=== PATIENT | male | born 1950 | race Caucasian/White ===

== ENCOUNTER 2020-06-10 06:39 | Outpatient (REF) | payer MEDICARE, SELFPAY ==
[2020-06-10 08:09] LABS: Estimated Average Glucose 154 mg/dL
[2020-06-10 08:16] LABS: Glucose Fasting 111 mg/dL (60-99)
== END 2020-06-10 06:40 | disposition home or self-care (01) ==
LOC: HO.LAB 06:39
PROVIDERS: PCP Internal Medicine; Visit Provider Internal Medicine
DX: E11.9 Type 2 diabetes mellitus without complications (principal)
CPT/HCPCS: 82947; 83036

== ENCOUNTER 2020-08-11 06:09 | Outpatient (REF) | payer MEDICARE, SELFPAY ==
[2020-08-11 07:45] LABS: Estimated Average Glucose 163 mg/dL; Hemoglobin A1c % 7.3 %
[2020-08-11 08:47] LABS: Cholesterol 135 mg/dL; Glucose Fasting 200 mg/dL (60-99); HDL Cholesterol 52 mg/dL; LDL Cholesterol Calculated 67 mg/dl; Triglycerides 80 mg/dL
[2020-08-11 08:49] LABS: Reflex LDLD? No
== END 2020-08-11 06:10 | disposition home or self-care (01) ==
LOC: HO.LAB 06:09
PROVIDERS: Visit Provider Internal Medicine
DX: E78.00 Pure hypercholesterolemia, unspecified (principal); E11.9 Type 2 diabetes mellitus without complications
CPT/HCPCS: 36415; 80061; 82947; 83036

== ENCOUNTER → 2020-08-12 08:07 | Outpatient (BNVA) | payer MEDICARE, SELFPAY | PROVIDERS: PCP Internal Medicine; Referring Provider Internal Medicine; Visit Provider Internal Medicine Endocrinology, Diabetes & Metabolism | DX: Z13.89 Encounter for screening for other disorder (principal) | CPT/HCPCS: Q3014 ==

== ENCOUNTER 2020-08-12 09:45 | Outpatient (REF) | payer MEDICARE, SELFPAY | END 2020-08-12 09:46 | disposition home or self-care (01) | LOC: HO.LAB 09:45 | PROVIDERS: PCP Internal Medicine; Visit Provider Internal Medicine | DX: Z20.822 Contact with and (suspected) exposure to COVID-19 (principal) | CPT/HCPCS: 36415; C9803; U0003 ==

== ENCOUNTER 2020-08-22 08:55 | Outpatient (REF) | payer OTHER, SELFPAY | END 2020-08-22 08:56 | disposition home or self-care (01) | LOC: HO.LAB 08:55 | PROVIDERS: Visit Provider Internal Medicine | DX: Z20.822 Contact with and (suspected) exposure to COVID-19 (principal) | CPT/HCPCS: 36415; C9803; U0003 ==

== ENCOUNTER → 2020-12-17 07:44 | Outpatient (BNVA) | payer OTHER, SELFPAY | PROVIDERS: PCP Internal Medicine; Visit Provider Internal Medicine Endocrinology, Diabetes & Metabolism | DX: E11.65 Type 2 diabetes mellitus with hyperglycemia (principal); E11.42 Type 2 diabetes mellitus with diabetic polyneuropathy; Z79.4 Long term (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; I10 Essential (primary) hypertension; E78.5 Hyperlipidemia, unspecified; E66.9 Obesity, unspecified | CPT/HCPCS: 82947 ==

== ENCOUNTER → 2020-12-29 14:52 | Outpatient (BNVA) | payer OTHER, SELFPAY | PROVIDERS: PCP Internal Medicine; Visit Provider Anesthesiology ==

== ENCOUNTER 2021-01-13 10:42 | Outpatient (REF) | payer OTHER, SELFPAY ==
[2021-01-13 10:49] LABS: MANUAL DIFF FLAG NO
[2021-01-13 11:33] LABS: Estimated Average Glucose 169 mg/dL; Hemoglobin A1c % 7.5 %
[2021-01-13 11:36] LABS: Basophils Percent Auto 0.4 % (0-2); Eosinophils Absolute Auto 0.1 X10*3/uL (0.0-0.4); Eosinophils Percent Auto 1.5 % (0-4); Hematocrit 37.3 % (42-52); Hemoglobin 11.9 g/dl (14.0-18.0); Imm Gran Abs Auto 0.01 X10*3/uL (0.00-0.03); Imm Gran Pct Auto 0.1 % (0.0-0.4); Lymphocytes Absolute Auto 1.6 X10*3/uL (1.2-4.9); Lymphocytes Percent Auto 24.1 % (20-40); Mean Corpuscular HGB Conc 31.9 g/dl (31.0-36.0); Mean Corpuscular Hemoglobin 28.8 pg (27.0-33.0); Mean Corpuscular Volume 90.3 fL (80-98); Mean Platelet Volume 10.8 fL (9.4-12.4); Monocytes Absolute Auto 0.6 X10*3/uL (0.1-1.2); Monocytes Percent Auto 9.6 % (2-11); Neutrophils Absolute Auto 4.3 X10*3/uL (2.0-8.3); Neutrophils Percent Auto 64.3 % (45-73); Platelet Count 271 X10*3/uL (160-400); Red Blood Count 4.13 X10*6/uL (4.60-5.80); Red Cell Distribution Width 14.6 % (11.0-16.0); White Blood Count 6.7 X10*3/uL (4.8-10.8)
[2021-01-13 11:44] LABS: Glucose Urine UA NEG (NEG); Leukocyte Esterase Urine NEG (NEG); Nitrite Urine NEG (NEG); Urine Blood NEG (NEG); Urine Ketones NEG (NEG); Urine Protein 1+ MG/DL (NEG-TRACE)
[2021-01-13 11:53] LABS: Appearance Urine CLEAR; Color Urine YELLOW
[2021-01-13 12:17] LABS: Mucus Urine 2+ /LPF; RBC Urine 0-2 /HPF (0); Sperm Urine NOTED; WBC Urine 0-2 /HPF (0-4)
[2021-01-13 12:35] LABS: PSA,Total (Free>4and<10) 3.02 ng/mL (0.00-4.00)
[2021-01-13 12:54] LABS: Creatinine Urine 186.14 mg/dL; Microalbum/Creatinine Ratio Ur 9.6 ug/mg cr
[2021-01-13 13:04] LABS: Alanine Aminotransferase 14 U/L (0-40); Albumin Level 4.3 g/dL (3.5-5.0); Alkaline Phosphatase 65 U/L (39-117); Anion Gap 13 (12-20); Aspartate Amino Transferase 21 U/L (5-37); Bilirubin Total 0.7 mg/dL (0.0-1.0); Blood Urea Nitrogen 14 mg/dL (9-16); Calcium 9.4 mg/dL (8.4-10.2); Carbon Dioxide 24 mmol/L (22-29); Chloride 107 mmol/L (96-108); Cholesterol 112 mg/dL; Estimated Glomerular Filt Rate > 60; Glucose Fasting 127 mg/dL (60-99); HDL Cholesterol 55 mg/dL; LDL Cholesterol Calculated 46 mg/dl; Potassium 4.1 mmol/L (3.3-5.1); Sodium 140 mmol/L (135-145); Total Protein 7.1 g/dL (6.5-8.0); Triglycerides 56 mg/dL
== END 2021-01-13 10:43 | disposition home or self-care (01) ==
LOC: HO.LNP 10:42
PROVIDERS: Visit Provider Internal Medicine
DX: Z00.00 Encounter for general adult medical examination without abnormal findings (principal); I10 Essential (primary) hypertension; E11.9 Type 2 diabetes mellitus without complications; E78.00 Pure hypercholesterolemia, unspecified; Z12.5 Encounter for screening for malignant neoplasm of prostate
CPT/HCPCS: 80053; 80061; 81001; 81003; 82043; 83036; 84153; 85025

== ENCOUNTER 2021-01-13 10:43 | Outpatient (REF) | payer OTHER, SELFPAY | END 2021-01-13 10:44 | disposition home or self-care (01) | LOC: HO.LNP 10:43 | PROVIDERS: Visit Provider Internal Medicine | DX: Z13.89 Encounter for screening for other disorder (principal) ==

== ENCOUNTER 2021-03-02 06:14 | Outpatient (REF) | payer MEDICARE, SELFPAY ==
[2021-03-02 07:57] LABS: Anion Gap 12 (12-20); Blood Urea Nitrogen 11 mg/dL (9-16); Carbon Dioxide 27 mmol/L (22-29); Chloride 104 mmol/L (96-108); Estimated Glomerular Filt Rate > 60; Phosphorus 2.9 mg/dL (2.7-4.5); Potassium 4.1 mmol/L (3.3-5.1); Sodium 139 mmol/L (135-145)
[2021-03-02 08:06] LABS: Renal w Reflex Lab Use Only Order verified
== END 2021-03-02 06:15 | disposition home or self-care (01) ==
LOC: HO.LAB 06:14
PROVIDERS: PCP Internal Medicine; Visit Provider Internal Medicine Nephrology
DX: N20.0 Calculus of kidney (principal); I10 Essential (primary) hypertension
CPT/HCPCS: 36415; 80051; 82310; 82565; 84100; 84520

== ENCOUNTER → 2021-03-06 14:36 | Outpatient (BNVA) | payer OTHER, SELFPAY | PROVIDERS: PCP Internal Medicine; Visit Provider Urology ==

== ENCOUNTER → 2021-04-22 07:41 | Outpatient (BNVA) | payer OTHER, SELFPAY | PROVIDERS: PCP Internal Medicine; Visit Provider Nurse Practitioner Gerontology | DX: E11.42 Type 2 diabetes mellitus with diabetic polyneuropathy (principal); E11.319 Type 2 diabetes mellitus with unspecified diabetic retinopathy without macular edema; E78.5 Hyperlipidemia, unspecified; B35.9 Dermatophytosis, unspecified; I10 Essential (primary) hypertension; E66.9 Obesity, unspecified; Z79.4 Long term (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 | CPT/HCPCS: 82947; 83036 ==

== ENCOUNTER 2021-04-24 09:03 | Day surgery (SDC) | payer OTHER, SELFPAY ==
--- NOTE | 2021-04-23 14:05 | P.CONAN_ITS ---
Documented by User: Roxana Agosto NP 04/23/21 14:06 HPI - Anesthesia Eval Consult details Narrative: 70yo M for Bilateral L2-L3-L4-DR L5 Diagnostic Medial Branch Blocks PMFSH Active Problems Active Problems: All Active Problems (Updated 04/22/21 @ 08:38 by BULMARO Valentin-C) DM2 (diabetes mellitus, type 2) (Acute) Tinea (Acute) Weak urinary stream (Acute) Nocturia more than twice per night (Acute) BPH w urinary obs/LUTS (Acute) Disc degeneration, lumbar (Acute) Chronic pain syndrome (Acute) Arthropathy of facet joint (Acute) Spondylosis of lumbosacral spine with radiculopathy (Acute) GERD (gastroesophageal reflux disease) (Acute) Obesity (BMI 30-39.9) (Acute) Dyslipidemia (Acute) Hypertension (Acute) 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 associated with type 2 diabetes mellitus (Acute) 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 (Acute) Past Medical History Medical History Arthropathy of facet joint Chronic pain syndrome 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 associated with type 2 diabetes mellitus Disc degeneration, lumbar DM2 (diabetes mellitus, type 2) Dyslipidemia GERD (gastroesophageal reflux disease) 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 Obesity (BMI 30-39.9) Spondylosis of lumbosacral spine with radiculopathy Family History Family History Father Unknown family medical history Mother Unknown family medical history Surgical History Surgical History Hx of colonoscopy Hx of esophagogastroduodenoscopy Hx of right hemicolectomy Social History Social History (Updated 04/22/21 @ 07:55 by JAKI Malin) Alcohol intake: never Patient Tobacco Use Status: Never used Tobacco Use of substances other than those prescribed or required for medical reasons: No Are you DNR?: No Advance Directives: No Advance Directives Information Provided: Yes Meds Allergies Allergy/AdvReac Type Severity Reaction Status Date / Time No Known Allergies Allergy Mild NONE Verified 04/22/21 08:13 Home Medications Medication Instructions Recorded Confirmed Last Taken Type aspirin 81 mg tablet,delayed 81 mg PO DAILY 08/12/20 04/22/21 Unknown History release (Adult Low Dose Aspirin) atorvastatin 40 mg tablet 40 mg PO DAILY 08/12/20 04/22/21 Unknown History hydralazine 100 mg tablet 100 mg PO TID 08/12/20 04/22/21 Unknown History omeprazole 20 mg capsule,delayed 20 mg PO BID 08/12/20 04/22/21 Unknown History release tramadol 50 mg tablet 50 mg PO Q6H PRN 08/12/20 04/22/21 Unknown History bupropion HCl 150 mg 24 hr tablet, 150 mg PO QAM 12/17/20 04/22/21 Unknown History extended release losartan 100 mg tablet 100 mg PO DAILY 12/17/20 04/22/21 Unknown History celecoxib 200 mg capsule 200 mg PO DAILY 04/22/21 04/22/21 Unknown History Exam Exam Date and Time: April 23, 2021 1405 Pertinent Lab Results Pertinent Lab Results: Laboratory Tests 01/13/21 03/02/21 07:10 06:25 WBC 6.7 Hgb 11.9 L Hct 37.3 L Plt Count 271 Sodium 139 Potassium 4.1 Chloride 104 Carbon Dioxide 27 BUN 11 Creatinine 0.92 Assessment and Plan Assessment Anesthesia Assessment: Chart Reviewed Documented by User: Nelly Domínguez MD 04/24/21 13:14 [facility] Past Medical History Medical History Arthropathy of facet joint Chronic pain syndrome 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 associated with type 2 diabetes mellitus Disc degeneration, lumbar DM2 (diabetes mellitus, type 2) Dyslipidemia GERD (gastroesophageal reflux disease) Hypertension 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 Obesity (BMI 30-39.9) Spondylosis of lumbosacral spine with radiculopathy Functional capacity: independent ambulation Family History Family History Father Unknown family medical history Mother Unknown family medical history Family history of problems with anesthesia: No Surgical History Surgical History Hx of colonoscopy Hx of esophagogastroduodenoscopy Hx of right hemicolectomy Social History Social History (Updated 04/22/21 @ 07:55 by JAKI Malin) Alcohol intake: never Patient Tobacco Use Status: Never used Tobacco Use of substances other than those prescribed or required for medical reasons: No Are you DNR?: No Advance Directives: No Advance Directives Information Provided: Yes Meds Allergies Allergy/AdvReac Type Severity Reaction Status Date / Time No Known Allergies Allergy Mild NONE Verified 04/22/21 08:13 Home Medications Medication Instructions Recorded Confirmed Last Taken Type aspirin 81 mg tablet,delayed 81 mg PO DAILY 08/12/20 04/22/21 Unknown History release (Adult Low Dose Aspirin) atorvastatin 40 mg tablet 40 mg PO DAILY 08/12/20 04/22/21 Unknown History hydralazine 100 mg tablet 100 mg PO TID 08/12/20 04/22/21 Unknown History omeprazole 20 mg capsule,delayed 20 mg PO BID 08/12/20 04/22/21 Unknown History release tramadol 50 mg tablet 50 mg PO Q6H PRN 08/12/20 04/22/21 Unknown History bupropion HCl 150 mg 24 hr tablet, 150 mg PO QAM 12/17/20 04/22/21 Unknown History extended release losartan 100 mg tablet 100 mg PO DAILY 12/17/20 04/22/21 Unknown History celecoxib 200 mg capsule 200 mg PO DAILY 04/22/21 04/22/21 Unknown History Exam Airway Mallampati Class: III TM Dist: >3cm Neck ROM: Full Heart: RRR Lungs: CTA Assessment and Plan Final Anesthetic Review Family History of Problems with Anesthesia: No
--- NOTE | ~2021-04-24 | FL_ITS ---
EXAMINATION: XR FLUOROSCOPY WITH IMAGES CLINICAL INFORMATION: Lumbar spine pain management procedure COMPARISON: None. TECHNIQUE: Fluoroscopy performed by Dr. Lalo Cooper. Fluoroscopy time: 1.4 minutes DAP: 15 mGycm2 Images: 8 FINDINGS: Images demonstrate needle placement and contrast injection adjacent to the bilateral lateral L3, L4 and L5 vertebral bodies. FL/FL guidance in OR IMPRESSION: Fluoroscopy guidance for lumbar spine pain management procedure.
[2021-04-24 10:02] VITALS: BP 182/85; PULSE 79; RESP 18; TEMP 36.3; O2SAT 97; BMI 33.0
[2021-04-24 10:04] LABS: Glucose, Whole Blood 152 mg/dL (60-115)
[2021-04-24] MEDS: Lactated Ringers 1,000 ML 100 ML IVCONT (10:13)
--- NOTE | 2021-04-24 10:49 | P.BOP_ITS ---
Brief Operative Note Date of Service: 04/24/21 Pre-op diagnosis: Spondylosis without myelopathy or radiculopathy lumbar spine Procedure: Diagnostic medial branch block L2-L3 L4 does ramus L5 Implants: In a Surgeon: Lalo Cooper MD Anesthesia: MAC Was an Drug Coordinator used for this Procedure?: No Estimated blood loss (mL): 2 Pathology: none sent Condition: stable Disposition: PACU
--- NOTE | 2021-04-24 10:50 | P.HPSUR_ITS ---
Pre-Procedural Eval Section A Date of Service: 04/24/21 Section B Chief Complaint: Spondylosis, Arthropathy of facet joint Details of Present Illness: As above Relevant Family History (Specify if Yes): No Relevant Social History: None Present Medications: see Short Stay Collaborative assessment Medical History: No relevant PMH History of Previous Operations: Relevant previous surgery/procedure and date(s) Allergies: Allergies Allergy/AdvReac Type Severity Reaction Status Date / Time No Known Allergies Allergy Mild NONE Verified 04/22/21 08:13 Review of Systems Sugical H&P ROS: Negative: Constitution, Cardiovascular, Respiratory, N eurological, Psychiatric, Hem-Onc, Allergic/Immunologic, Gastrointestinal, Genitourinary, Musculoskeletal, Integumentary, Endocrine and Eyes/Ears/Nose/Throat Exam Surgical H&P Exam: Normal: HEENT, Normal: Heart, Normal: Lungs, Normal: Extremities, Normal: Abdomen, Normal: Skin and Normal: Neurological Plan Diagnosis/Plan: Unchanged I have reviewed the history and physical and performed a pertinent physical examination on my patient. No changes have occurred unless specified.
--- NOTE | 2021-04-24 10:54 | W.PM.OPN ---
Operative Note Operative Note Date of Service: 04/24/21 Narrative: Informed consent was explained to the patient. All questions were explained and? answered.? The patient was taken inside the operating room where he was positioned prone on the operating table.? Citizen Of [place] Society of Anesthesiology monitors were applied.? Patient was deeply sedated. ? Time-out was performed delineating correct site, side, the nature of the procedure, patient's allergy, preoperative antibiotic if needed.? All operating room staff was participating in OR time-out procedure. ? ? The lower back was prepped with DuraPrep and draped with sterile towels.?C-arm was brought over the operating field and sq picture of L3, L4-and L5 vertebra and S1 AREA were delineated on the screen.? Point of interest were delineated as connection of superior articular process of L3, L4 and L5 vertebra bilaterally with corresponding transverse processes as well as connection of the sacral alae bilaterally with superior articular process of S1.? The projection of the point of interest to the skin were injected with the small amount of local anesthetic lidocaine 2% 1-1.5 cc.? After that 22 gauge 5inch spinal needle was driven sequentially to the points of interest in tunnel vision fashion.The patients' body habitus required longer than usual needle although the patient is not morbidly obese. After needles gently contacted the bone at the point of interests the needle was injected with small amount of the contrast.? The injection of the contrast did not demonstrate any intravascular or intrathecal spread of the contrast.? After that injection of the? bupivacaine 0.5%-1cc was performed at each needle location.? ? Upon completion of the injections? needle was? removed and sterile Band-Aids were applied.? The? patient was awaken and taken outside of the operating room to recovery room where he recovered uneventfully he went home without immediate complications. He was instructed about pain diary.
--- NOTE | 2021-04-24 11:44 | MHC.SHP ---
Pre-Procedural Eval Section A Date of Service: 04/24/21 Section B Chief Complaint: Spondylosis, Arthropathy of facet joint Details of Present Illness: As above Relevant Family History (Specify if Yes): No Relevant Social History: None Present Medications: None Medical History: No relevant PMH History of Previous Operations: No relevant previous surgery Allergies: Allergies Allergy/AdvReac Type Severity Reaction Status Date / Time No Known Allergies Allergy Mild NONE Verified 04/22/21 08:13 Review of Systems Sugical H&P ROS: Negative: Constitution, Cardiovascular, Respiratory, Neurological, Psychiatric, Hem-Onc, Allergic/Immunologic, Gastrointestinal, Genitourinary, Musculoskeletal, Integumentary, Endocrine and Eyes/Ears/Nose/Throat Exam Surgical H&P Exam: Normal: HEENT, Normal: Heart, Normal: Lungs, Normal: Extremities, Normal: Abdomen, Normal: Skin and Normal: Neurological Plan Diagnosis/Plan: Unchanged I have reviewed the history and physical and performed a pertinent physical examination on my patient. No changes have occurred unless specified.
[2021-04-24 12:46] VITALS: BP 163/77; PULSE 67; RESP 16; TEMP 36.2; O2SAT 98
[2021-04-24 13:01] VITALS: BP 156/78; PULSE 69; RESP 20; TEMP 36.4; O2SAT 99
== END 2021-04-24 13:45 | disposition home or self-care (01) ==
PROVIDERS: PCP Internal Medicine; Visit Provider Anesthesiology
PROC: (CPT 64493; principal; 2021-04-24 10:50)
DX: M47.27 Other spondylosis with radiculopathy, lumbosacral region (principal); M51.36 Other intervertebral disc degeneration, lumbar region; G89.4 Chronic pain syndrome; M54.5 Low back pain; E11.9 Type 2 diabetes mellitus without complications; I10 Essential (primary) hypertension; Z79.4 Long term (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
CPT/HCPCS: 64493; 64494; 64495; 82947; J2250; Q9967

== ENCOUNTER → 2021-04-29 16:48 | Outpatient (BNVA) | payer OTHER, SELFPAY | PROVIDERS: PCP Internal Medicine; Visit Provider Anesthesiology ==

== ENCOUNTER 2021-05-27 06:12 | Day surgery (SDC) | payer MEDICARE, SELFPAY ==
--- NOTE | 2021-05-26 12:42 | HO.ANESPROP2 ---
Documented by User: Roxana Agosto NP 05/26/21 12:43 HPI - Anesthesia Eval Consult details Narrative: 70yo M for Colonoscopy s/p MBB with MAC 04/24/21 [facility] Active Problems Active Problems: All Active Problems (Updated 05/21/21 @ 15:52 by Deyanira Silevira, RN) BPH w urinary obs/LUTS (Acute) Nocturia more than twice per night (Acute) Weak urinary stream (Acute) Tinea (Acute) DM2 (diabetes mellitus, type 2) (Acute) Disc degeneration, lumbar (Acute) Chronic pain syndrome (Acute) Arthropathy of facet joint (Acute) Spondylosis of lumbosacral spine with radiculopathy (Acute) GERD (gastroesophageal reflux disease) (Acute) Obesity (BMI 30-39.9) (Acute) Dyslipidemia (Acute) Hypertension (Acute) 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 associated with type 2 diabetes mellitus (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) Past Medical History Medical History (Updated 05/21/21 @ 15:52 by Deyanira Silveira, BEATRIZ) Arthropathy of facet joint Chronic pain syndrome 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 associated with type 2 diabetes mellitus Disc degeneration, lumbar DM2 (diabetes mellitus, type 2) Dyslipidemia GERD (gastroesophageal reflux disease) Hx SBO 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 Obesity (BMI 30-39.9) On beta lala at home Spondylosis of lumbosacral spine with radiculopathy Family History Family History Father Unknown family medical history Mother Unknown family medical history Family history of problems with anesthesia: No Surgical History Surgical History (Updated 05/21/21 @ 15:49 by Deyanira Silveira, BEATRIZ) Hx of colonoscopy Hx of esophagogastroduodenoscopy Hx of right hemicolectomy Social History Social History (Updated 04/22/21 @ 07:55 by JAKI Malin) Alcohol intake: never Patient Tobacco Use Status: Never used Tobacco Use of substances other than those prescribed or required for medical reasons: No Are you DNR?: No Advance Directives: No Advance Directives Information Provided: Yes Meds Allergies Allergy/AdvReac Type Severity Reaction Status Date / Time No Known Allergies Allergy Mild NONE Verified 05/21/21 15:50 Home Medications Medication Instructions Recorded Confirmed Last Taken Type aspirin 81 mg tablet,delayed 81 mg PO DAILY 08/12/20 05/21/21 Unknown History release (Adult Low Dose Aspirin) atorvastatin 40 mg tablet 40 mg PO DAILY 08/12/20 05/21/21 Unknown History hydralazine 100 mg tablet 100 mg PO TID 08/12/20 05/21/21 05/27/21 History omeprazole 20 mg capsule,delayed 20 mg PO BID 08/12/20 05/21/21 Unknown History release tramadol 50 mg tablet 50 mg PO Q6H PRN 08/12/20 05/21/21 05/27/21 History bupropion HCl 150 mg 24 hr tablet, 150 mg PO QAM 12/17/20 05/21/21 Unknown History extended release losartan 100 mg tablet 100 mg PO DAILY 12/17/20 05/21/21 Unknown History celecoxib 200 mg capsule 200 mg PO DAILY 04/22/21 05/21/21 Unknown History Exam Exam Date and Time: May 26, 2021 1242 Pertinent Lab Results Pertinent Lab Results: Laboratory Tests ? 01/13/21 03/02/21 ? 07:10 06:25 WBC ?6.7 ? Hgb ?11.9 L ? Hct ?37.3 L ? Plt Count ?271 ? Sodium ? ?139 Potassium ? ?4.1 Chloride ? ?104 Carbon Dioxide ? ?27 BUN ? ?11 Creatinine ? 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 Obesity (BMI 30-39.9) On beta lala at home Spondylosis of lumbosacral spine with radiculopathy Family History Family History Father Unknown family medical history Mother Unknown family medical history Surgical History Surgical History (Updated 05/21/21 @ 15:49 by Deyanira Silveira RN) Hx of colonoscopy Hx of esophagogastroduodenoscopy Hx of right hemicolectomy History of Problems with Anesthesia: No Social History Social History (Updated 04/22/21 @ 07:55 by JAKI Malin) Alcohol intake: never Patient Tobacco Use Status: Never used Tobacco Use of substances other than those prescribed or required for medical reasons: No Are you DNR?: No Advance Directives: No Advance Directives Information Provided: Yes Meds Allergies Allergy/AdvReac Type Severity Reaction Status Date / Time No Known Allergies Allergy Mild NONE Verified 05/21/21 15:50 Home Medications Medication Instructions Recorded Confirmed Last Taken Type aspirin 81 mg tablet,delayed 81 mg PO DAILY 08/12/20 05/21/21 Unknown History release (Adult Low Dose Aspirin) atorvastatin 40 mg tablet 40 mg PO DAILY 08/12/20 05/21/21 Unknown History hydralazine 100 mg tablet 100 mg PO TID 08/12/20 05/21/21 05/27/21 History omeprazole 20 mg capsule,delayed 20 mg PO BID 08/12/20 05/21/21 Unknown History release tramadol 50 mg tablet 50 mg PO Q6H PRN 08/12/20 05/21/21 05/27/21 History bupropion HCl 150 mg 24 hr tablet, 150 mg PO QAM 12/17/20 05/21/21 Unknown History extended release losartan 100 mg tablet 100 mg PO DAILY 12/17/20 05/21/21 Unknown History celecoxib 200 mg capsule 200 mg PO DAILY 04/22/21 05/21/21 Unknown History Exam Airway Mallampati Class: II TM Dist: >3cm Neck ROM: Full Heart: rrr Lungs: cta Assessment and Plan Assessment Anesthesia Assessment: Anesthesia Plan Discussed and Chart Reviewed Final Anesthetic Review History of Problems with Anesthesia: No NPO: Yes ASA Class: III Final Preanesthetic Review: No Changes in Pt Med Stat, Meds/Allgs Chart Reviewed and Consent Obtained/Reviewed Patient Risk: Intermediate Procedure Risk: Intermediate Anesthetic Plan Anesthetic Plan: MAC: Disposition: Standard PACU
[2021-05-27 06:38] VITALS: BP 166/69; PULSE 77; RESP 16; TEMP 36.9; O2SAT 98; BMI 32.7
[2021-05-27 06:50] LABS: Glucose, Whole Blood 108 mg/dL (60-115)
[2021-05-27] MEDS: Lactated Ringers 1,000 ML 100 ML IVCONT (06:57)
[2021-05-27 08:26] VITALS: BP 135/63; PULSE 64; RESP 16; TEMP 37.3; O2SAT 96
--- NOTE | 2021-05-27 08:31 | PM.OP ---
Brief Operative Note Date of Service: 05/27/21 Pre-op diagnosis: Screening Post-op diagnosis: other (Colon polyp(not recovered)) Procedure: Colonoscopy to the anastomosis with cold snare polypectomy Surgeon: Juancarlos Sher Anesthesia: MAC Was an Bed Machine Operator used for this Procedure?: No Estimated blood loss (mL): 3.0 Pathology: none sent Condition: stable Disposition: PACU
[2021-05-27 08:41] VITALS: BP 162/83; PULSE 52; RESP 16; TEMP 37.3; O2SAT 98
--- NOTE | 2021-05-27 09:36 | OP_ITS ---
SURGEON: Juancarlos Sher MD INDICATIONS: The patient presents for followup of personal history of colon cancer, colon polyps, and colorectal cancer screening. Full consent has been obtained from him for this, including risks of bleeding and perforation. PREOPERATIVE DIAGNOSIS: POSTOPERATIVE DIAGNOSIS: PROCEDURE PERFORMED: Colonoscopy to the anastomosis and small bowel with snare polypectomy. ESTIMATED BLOOD LOSS: COMPLICATIONS: ANESTHESIA: Monitored anesthesia care. ASSISTANTS: SPECIMENS: PREOPERATIVE DIAGNOSES: Personal history of colon cancer, colorectal cancer screening, personal history of colon polyps. POSTOPERATIVE DIAGNOSES: Personal history of colon cancer, colorectal cancer screening, personal history of colon polyps, colon polyp, diverticulosis. DESCRIPTION OF PROCEDURE: The patient was placed in the left lateral decubitus position. The digital rectal exam revealed no abnormalities. The Olympus video pediatric colonoscope was entered into the rectum and advanced easily to the region of the anastomosis. The small bowel mucosa appeared normal. The anastomosis appeared normal. The scope was then slowly withdrawn assessing all mucosal surfaces carefully. Preparation throughout the colon was somewhat limited due to some retained liquid stool, which was irrigated and removed as best as possible, but was not complete. I did visualize an approximately 5 mm polyp just distal to the anastomosis, which was snared with the cold snare, but not recovered. There was no sign of any residual polyp nor bleeding. I did not visualize any sign of other polyps, colitis, nor angiodysplasia. There was a mild amount of sigmoid diverticulosis. In the rectum, scope was retroflexed visualizing some small internal hemorrhoids, but no other pathology. The rectal mucosa appeared normal. The scope was straightened out and withdrawn from the patient. He tolerated the procedure well and was returned to the recovery area in stable condition. IMPRESSION: 1. Small colon polyp, status post snare polypectomy. 2. Mild diverticulosis. 3. Minimal internal hemorrhoids. PLAN: The results of the pathology will be checked. I would recommend a repeat colonoscopy within 3 years and he most likely will need a 2-day prep at that point. He was advised not to use any aspirin nor NSAIDs for 1 week. MD NAVARRO Kimble/MARILEE / [id number]
== END 2021-05-27 08:59 | disposition home or self-care (01) ==
PROVIDERS: PCP Internal Medicine; Visit Provider Internal Medicine
PROC: 0DJD8ZZ Inspection of Lower Intestinal Tract, Via Natural or Artificial Opening Endoscopic (ICD-10-PCS; CPT 45378; principal; 2021-05-27 07:30)
DX: Z12.11 Encounter for screening for malignant neoplasm of colon (principal); Z85.038 Personal history of other malignant neoplasm of large intestine; Z86.010 Personal history of colon polyps; K63.5 Polyp of colon; K57.30 Diverticulosis of large intestine without perforation or abscess without bleeding; K64.8 Other hemorrhoids; K21.00 Gastro-esophageal reflux disease with esophagitis, without bleeding; I10 Essential (primary) hypertension; E11.8 Type 2 diabetes mellitus with unspecified complications; Z79.4 Long term (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; Z79.82 Long term (current) use of aspirin; Z79.899 Other long term (current) drug therapy; Z90.49 Acquired absence of other specified parts of digestive tract; Z87.19 Personal history of other diseases of the digestive system
CPT/HCPCS: 45385; 82947

== ENCOUNTER → 2021-06-05 10:36 | Outpatient (BNVA) | payer MEDICARE, SELFPAY | PROVIDERS: PCP Internal Medicine; Visit Provider Urology | DX: N40.1 Benign prostatic hyperplasia with lower urinary tract symptoms (principal); N13.8 Other obstructive and reflux uropathy | CPT/HCPCS: 51798; 99212 ==

== ENCOUNTER 2021-07-16 13:53 | Outpatient (REF) | payer MEDICARE, SELFPAY ==
[2021-07-16 14:25] LABS: Estimated Average Glucose 151 mg/dL; Hemoglobin A1c % 6.9 %
[2021-07-16 14:44] LABS: Alanine Aminotransferase 21 U/L (0-40); Albumin Level 4.3 g/dL (3.5-5.0); Alkaline Phosphatase 61 U/L (39-117); Aspartate Amino Transferase 26 U/L (5-37); Bilirubin Direct 0.2 mg/dL (0.0-0.5); Bilirubin Total 0.4 mg/dL (0.0-1.0); Cholesterol 139 mg/dL; Glucose Fasting 127 mg/dL (60-99); HDL Cholesterol 60 mg/dL; LDL Cholesterol Calculated 66 mg/dl; Total Protein 7.3 g/dL (6.5-8.0); Triglycerides 65 mg/dL
== END 2021-07-16 13:54 | disposition home or self-care (01) ==
LOC: HO.LNP 13:53
PROVIDERS: Visit Provider Internal Medicine
DX: E11.9 Type 2 diabetes mellitus without complications (principal); E78.00 Pure hypercholesterolemia, unspecified
CPT/HCPCS: 80061; 80076; 82947; 83036

== ENCOUNTER → 2021-08-31 15:53 | Outpatient (BNVA) | payer MEDICARE, SELFPAY | PROVIDERS: PCP Internal Medicine; Visit Provider Anesthesiology | DX: M47.27 Other spondylosis with radiculopathy, lumbosacral region (principal); M47.819 Spondylosis without myelopathy or radiculopathy, site unspecified; M51.36 Other intervertebral disc degeneration, lumbar region; G89.4 Chronic pain syndrome | CPT/HCPCS: 99212 ==

== ENCOUNTER → 2021-09-14 13:38 | Outpatient (BNVA) | payer MEDICARE, SELFPAY | PROVIDERS: PCP Internal Medicine; Referring Provider Internal Medicine; Visit Provider Surgery | DX: K40.90 Unilateral inguinal hernia, without obstruction or gangrene, not specified as recurrent (principal) | CPT/HCPCS: 99202 ==

== ENCOUNTER 2021-10-19 14:19 | Emergency (ER) | payer MEDICARE, SELFPAY ==
[2021-10-19 15:33] VITALS: BP 190/88; PULSE 108; RESP 18; TEMP 37.2; O2SAT 98; BMI 34.4
--- NOTE | 2021-10-19 15:56 | ED.BACK ---
HPI - Back Pain/Injury General Chief Complaint: Back Pain/Injury Stated Complaint: sharp pain lower back Time Seen by Provider: 10/19/21 15:36 Source: patient Mode of arrival: wheelchair Limitations: no limitations History of Present Illness HPI Narrative: Patient is a 71 year old male presenting to the emergency department today with back pain. Patient states that he has extensive back problems and he sees a pain specialist who gives him injections in his back. Patient states that he is currently prescribed Tramadol and he took 2 of his nephews oxycodones which helped for a little bit but not long. Patient states that he has not seen his pain specialist in awhile. Patient denies any new pain and states that this pain is the same chronic pain he has been dealing with. Patient describes the pain as being in his low back and is a 5/10 on the pain scale. Patient states that the pain radiates some down his legs. Patient denies any numbness, tingling, dizziness, lightheadedness, abdominal pain, nausea, vomiting, fever, chills, blurry vision, double vision, loss of vision, chest pain, difficulty breathing, shortness of breath, night sweats, pain with urination, increased urinary frequency, increased urinary urgency, blood in [his/her] urine or stool, syncope or a near syncopal episode, recent trauma or falls, bowel incontinence, bladder incontinence, bowel retention, bladder retention, or any other complaints at this time. MD elicited complaint: back pain Pertinent past history: prior back pain Onset (ago): year(s) Timing: constant Severity: mild Pain scale (0-10): 5 Similar Symptoms Previously: Yes Quality: dull Location: lumbar spine Radiation: other (legs) Exacerbating factors: movement Relieving factors: none Associated symptoms: denies other symptoms Work related injury: No Related Data Home Medications Medication Instructions Recorded Confirmed aspirin 81 mg tablet,delayed 81 mg PO DAILY 08/12/20 09/14/21 release (Adult Low Dose Aspirin) atorvastatin 40 mg tablet 40 mg PO DAILY 08/12/20 09/14/21 hydralazine 100 mg tablet 100 mg PO TID 08/12/20 09/14/21 omeprazole 20 mg capsule,delayed 20 mg PO BID 08/12/20 09/14/21 release tramadol 50 mg tablet 50 mg PO Q6H PRN 08/12/20 09/14/21 bupropion HCl 150 mg 24 hr tablet, 150 mg PO QAM 12/17/20 09/14/21 extended release losartan 100 mg tablet 100 mg PO DAILY 12/17/20 09/14/21 celecoxib 200 mg capsule 200 mg PO DAILY 04/22/21 09/14/21 Previous Rx's Medication Instructions Recorded OneTouch Verio test strips (blood #300 ea NS 12/17/20 sugar diagnostic) pen needle, diabetic 32 gauge x #50 ea 12/17/20 (BD Theresa 2nd Gen Pen Needle) OneTouch Verio Meter #1 ea NS 01/15/21 (blood-glucose meter) acarbose 50 mg tablet 50 mg PO TID 90 Days #270 tab 04/22/21 amlodipine 5 mg tablet 5 mg PO DAILY #90 tab 04/22/21 insulin glargine 100 unit/mL (3 15 unit (0.15 mL) SUBCUT QAM 90 04/22/21 mL) subcutaneous pen (Lanus Days #15 ml Solostar U-100 Insulin) pioglitazone 15 mg tablet 15 mg PO DAILY 90 Days #90 tab 04/22/21 terbinafine HCl 1 % topical cream 1 appl TOPICAL BID #15 g 04/22/21 (Antifungal (terbinafine)) finasteride 5 mg tablet 5 mg PO DAILY 90 Days #90 tab 08/28/21 tamsulosin 0.4 mg capsule 0.4 mg PO BID 90 Days #180 cap 08/28/21 Allergies Allergy/AdvReac Type Severity Reaction Status Date / Time No Known Allergies Allergy Mild NONE Verified 09/14/21 13:47 Review of Systems Constitutional: Constitutional: Reports no additional constitutional complaints, Denies chills, Denies fever(s) and Denies night sweats Eyes: Eyes: Reports no additional eye complaints, Denies blurry vision, Denies change in vision, Denies diplopia, Denies eye discharge, Denies loss of vision and Denies eye pain ENT: Denies dizziness Cardiovascular: Cardiovascular: Reports no additional cardiovascular complaints, Denies chest pain, Denies lightheadedness, Denies Loss of Consciousness and Denies dyspnea Respiratory: Respiratory: Reports no additional respiratory complaints and Denies dyspnea Gastrointestinal: Gastrointestinal: Reports no additional gastrointestinal complaints, Denies abdominal pain, Denies melena, Denies hematochezia, Denies change in bowel habits and Denies change in stool character Genitourinary: Genitourinary: Reports no additional male genitourinary complaints, Denies hematuria, Denies oliguria, Denies difficulty urinating, Denies dysuria, Denies urinary frequency, Denies urinary hesitancy, Denies urinary incontinence and Denies urinary urgency Musculoskeletal: Musculoskeletal: Reports no additional musculoskeletal complaints, Reports back pain, Denies numbness and Denies tingling Neurologic: Denies dizziness, Denies loss of vision, Denies numbness and Denies tingling Psychiatric: Psychiatric: Reports no additional psychiatric complaints Endocrine: Endocrine: Reports no additional endocrine complaints Hematologic/Lymphatic: Hematologic/Lymphatic: Reports no additional hematologic/lymphatic complaints Allergic/Immunologic: Allergic/Immunologic: Reports no additional allergic/immunologic complaints PMFSH Past Medical History Attestation statement: The following information was validated with the patient. Source: old records reviewed Medical History Arthropathy of facet joint Chronic pain syndrome 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 associated with type 2 diabetes mellitus Disc degeneration, lumbar DM2 (diabetes mellitus, type 2) Dyslipidemia GERD (gastroesophageal reflux disease) Hx SBO Hypertension snf (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 Obesity (BMI 30-39.9) On beta lala at home Right inguinal hernia Spondylosis of lumbosacral spine with radiculopathy Surgical History Hx of colonoscopy Hx of esophagogastroduodenoscopy Hx of right hemicolectomy Family History Family History Father Unknown family medical history Mother Unknown family medical history Social History Social History Alcohol intake: never Patient Tobacco Use Status: Never used Tobacco Advance Directives: No Advance Directives Information Provided: No Physical Exam Vital Signs: Vital Signs: Last Vital Signs Temp 99 F 10/19/21 15:33 Pulse 108 H 10/19/21 15:33 Resp 18 10/19/21 15:33 BP 190/88 H 10/19/21 15:33 Pulse Ox 98 10/19/21 15:33 BMI result Body Mass Index 34.4 Const: General: cooperative, no acute distress, alert and awake Nutritional Appearance: well nourished Orientation/consciousness: patient oriented x3 Limitations: no limitations HENMT: Head: Yes normal to inspection and Yes atraumatic Ears: hearing grossly normal bilaterally and external ears normal General nose exam: Normal external nose present, no nasal discharge noted and no epistaxis Face and sinus: Yes normal facial exam, No abrasion and No laceration Mouth: Normal oral and palatal mucosa present, no drooling and no muffled voice Eyes: General: appearance normal, both eyes and all related structures Periorbital: periorbital findings normal Eyelids: Yes eyelids normal Conjunctivae: conjunctivae normal Pupils: Equal, round and reactive pupils present EOM: EOMs intact bilaterally Neck: Neck: Yes normal visual inspection, Yes full ROM and Yes no lymphadenopathy Chest: Chest palpation & inspection: normal inspection of the chest Resp: Effort & Inspection: normal respiratory effort and able to speak in complete sentences Auscultation: clear to auscultation bilaterally Cardio: Palpation: normal PMI Rate: regular rate GI: Inspection: Yes normal to inspection Back/Spine/Pelvis: Other: Patient has some tenderness to palpation of the bilateral lumbar spine in the paraspinal regions which is documented in detail by his pain specialist in his 08/31/2021 visit notes. Neuro: General: patient oriented x3 and moves all extremities Cranial nerves: Yes Equal, round and reactive pupils present Cognition (Neuro): normal cognition Motor exam (neuro): 5/5 motor strength present throughout Sensory Exam: Normal double simultaneous stimulation for sensation Coordination: [id number] test normal Extrem: Other: Patient has some mild weakness to the right lower extremity which is documented in detail by his pain specialist in his 08/31/2021 visit notes. General: Yes normal to inspection and Yes capillary refill normal Psych: Appearance: grossly normal Mental Status: mental status grossly normal Affect: normal affect Attitude: cooperative Thought process: Normal thought process present Thought content: Normal thought content present Insight: Good insight present (Psych) MDM - Back Pain/Injury MDM Narrative Medical decision making narrative: Patient is a 71 year old male presenting to the emergency department today with chronic back pain. Patient's physical exam showed some right lower extremity weakness and tenderness to palpation of the lumbar spine in the paraspinal regions which is chronic for the patient. I reviewed all notes in the patient's chart including his last visit with his pain secialist Dr. Cooper on 08/31/2021 who stated that the patient wanted opiate medication and needed to provide a urine drug screen before they could proceed with that treatment. I explained my physical exam findings to the patient. I answered all questions asked by the patient. I explained to the patient that because he drove himself to the Emergency Department today and does not have a safe way home, he would not be receiving any narcotics in the department today. I also explained to the patient that due to the nature of working with a pain specialist, I cannot prescribe him narcotics as that could affect his ability to have a recurring narcotic prescription from him. Patient received IM solu-medrol which he stated helped his pain some. I stressed the importance of the patient taking his medication as prescribed. I stressed the importance of the patient following up with his primary care provider and his pain specialist. I stressed the importance of the patient returning to the emergency department immediately if his symptoms were to worsen or if he were to develop any dizziness, shortness of breath, difficulty breathing, chest pain, blurry vision, loss of vision, nausea, vomiting, abdominal pain, fever, chills, back pain, or any other complaints. Patient verbalized agreement and understanding with this treatment plan and discharge. Differential Diagnosis Differential diagnosis: Likely lumbar radiculopathy (chronic low back pain), strain of lumbar region and discitis Medical Records Attestation: I reviewed the patient's medical records. Discharge Plan Discharge Clinical Impression: Chronic back pain Patient Disposition: Home, Self-Care Instructions: Chronic Pain (ED), Chronic Back Pain (DC) Additional Instructions: Call your pain specialist for an immediate appointment to discuss next steps in treatment options. Follow up with your primary care provider. Return to the emergency department immediately if your symptoms worsen or if you develop any dizziness, shortness of breath, difficulty breathing, chest pain, blurry vision, loss of vision, nausea, vomiting, abdominal pain, fever, chills, back pain, or any other complaints. Prescriptions: No Action (DME) blood-glucose meter [OneTouch Verio Meter] Misc See Rx Instructions .ROUTE .MEDSUPPLY Qty: 1 0RF Rx Instructions: 3 times a day tamsulosin 0.4 mg capsule 0.4 mg PO BID 90 Days Qty: 180 2RF finasteride 5 mg tablet 5 mg PO DAILY 90 Days Qty: 90 2RF celecoxib 200 mg capsule 200 mg PO DAILY 0RF Lantus Solostar U-100 Insulin 100 unit/mL (3 mL) insulin pen 15 unit subcut QAM 90 Days Qty: 15 1RF pioglitazone 15 mg tablet 15 mg PO DAILY 90 Days Qty: 90 1RF acarbose 50 mg tablet 50 mg PO TID 90 Days Qty: 270 1RF terbinafine HCl [Antifungal (terbinafine)] 1 % cream 1 appl topical BID Qty: 15 1RF Rx Instructions: use for 10 days. May repeat with recurrence. amlodipine 5 mg tablet 5 mg PO DAILY Qty: 90 1RF atorvastatin 40 mg tablet 40 mg PO DAILY 0RF omeprazole 20 mg capsule,delayed release(DR/EC) 20 mg PO BID 0RF tramadol 50 mg tablet 50 mg PO Q6H PRN (Reason: Pain) 0RF hydralazine 100 mg tablet 100 mg PO TID 0RF aspirin [Adult Low Dose Aspirin] 81 mg tablet,delayed release (DR/EC) 81 mg PO DAILY 0RF bupropion HCl 150 mg tablet extended release 24 hr 150 mg PO QAM 0RF losartan 100 mg tablet 100 mg PO DAILY 0RF (DME) OneTouch Verio test strips Strip See Rx Instructions ea Not Applicable QID Qty: 300 2RF Rx Instructions: 3 times a day (DME) pen needle, diabetic [BD Theresa 2nd Gen Pen Needle] 32 gauge x 5/32 needle See Rx Instructions .MEDSUPPLY Qty: 50 4RF Rx Instructions: once a day Referrals: Mahad Haddad MD [Primary Care Provider] - 2 days Lalo Cooper MD [Physician] - 2 days Interventions: ED Discharge Assessment Last Done: 10/19/21 16:28 Discharge Date/Time: 10/19/21 16:30 Print Language: [place]
[2021-10-19] MEDS: methylPREDNISolone Sod Succ 125 MG/2 ML VIAL 120 MG IM (16:24)
== END 2021-10-19 16:30 | disposition home or self-care (01) ==
PROVIDERS: Emergency Provider Emergency Medicine; PCP Internal Medicine
DX: G89.29 Other chronic pain (principal); M54.50 Low back pain, unspecified; I10 Essential (primary) hypertension; E11.9 Type 2 diabetes mellitus without complications; Z79.4 Long term (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
CPT/HCPCS: 96372; 99283; 99284; J2930

== ENCOUNTER → 2021-10-21 07:43 | Outpatient (BNVA) | payer MEDICARE, SELFPAY | PROVIDERS: PCP Internal Medicine; Visit Provider Nurse Practitioner Gerontology | DX: E11.319 Type 2 diabetes mellitus with unspecified diabetic retinopathy without macular edema (principal); E11.42 Type 2 diabetes mellitus with diabetic polyneuropathy; E78.5 Hyperlipidemia, unspecified; E66.9 Obesity, unspecified; B35.9 Dermatophytosis, unspecified; I10 Essential (primary) hypertension; Z79.4 Long term (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; Z68.34 Body mass index [BMI] 34.0-34.9, adult | CPT/HCPCS: 82947; 83036; 99212 ==

== ENCOUNTER 2021-10-21 09:12 | Emergency (ER) | payer MEDICARE, SELFPAY ==
--- NOTE | ~2021-10-21 | XR_ITS ---
EXAMINATION: XR CHEST CLINICAL INFORMATION: Chest pain COMPARISON: February 12, 2020 TECHNIQUE: AP portable view of the chest was obtained. FINDINGS: There is persistent elevation of the left hemidiaphragm with bowel distention seen below the diaphragm. The cardiopericardial silhouette appears enlarged. No pneumothorax or pleural effusion. No pulmonary edema. XR/XR chest 1V IMPRESSION: Chronic elevation of the left hemidiaphragm. No acute disease.
--- NOTE | 2021-10-21 09:18 | ED_ITS ---
HPI - Chest Pain General Chief Complaint: Chest Pain Stated Complaint: CP,HIGH BP 168/84,FROM MD OFFICE PER EMS Time Seen by Provider: 10/21/21 09:17 Source: patient, old records reviewed and life specialist Mode of arrival: EMS Limitations: no limitations History of Present Illness HPI narrative: patient reports feeling heat/chills and his entire body hurts and knox x 3 days complaint: chest pain Onset (ago): day(s) (3) Timing of current episode: constant Prior episodes: No Onset: during rest and during exertion Pain location: other (states it is really his entire body) Pain radiation: none Severity: moderate Quality: burning Relieving factors: nothing Exacerbating factors: movement Context: other (cannot think of event per patient, seen here on 10/19 for chronic back pain has been to pain management hoping to start a pain opiate contract) Associated symptoms: nausea, dyspnea and palpitations Treatment prior to arrival: aspirin and nitroglycerin Related Data Home Medications Medication Instructions Recorded Confirmed aspirin 81 mg tablet,delayed 81 mg PO DAILY 08/12/20 10/21/21 release (Adult Low Dose Aspirin) atorvastatin 40 mg tablet 40 mg PO DAILY 08/12/20 10/21/21 hydralazine 100 mg tablet 100 mg PO TID 08/12/20 09/14/21 omeprazole 20 mg capsule,delayed 20 mg PO BID 08/12/20 09/14/21 release tramadol 50 mg tablet 50 mg PO Q6H PRN 08/12/20 09/14/21 bupropion HCl 150 mg 24 hr tablet, 150 mg PO QAM 12/17/20 10/21/21 extended release losartan 100 mg tablet 100 mg PO DAILY 12/17/20 10/21/21 celecoxib 200 mg capsule 200 mg PO DAILY 04/22/21 09/14/21 Previous Rx's Medication Instructions Recorded OneTouch Verio test strips (blood #300 ea NS 12/17/20 sugar diagnostic) pen needle, diabetic 32 gauge x #50 ea 12/17/20 (BD Theresa 2nd Gen Pen Needle) OneTouch Verio Meter #1 ea NS 01/15/21 (blood-glucose meter) amlodipine 5 mg tablet 5 mg PO DAILY #90 tab 04/22/21 insulin glargine 100 unit/mL (3 15 unit (0.15 mL) SUBCUT QAM 90 04/22/21 mL) subcutaneous pen (Lantus Days #15 ml Solostar U-100 Insulin) pioglitazone 15 mg tablet 15 mg PO DAILY 90 Days #90 tab 04/22/21 terbinafine HCl 1 % topical cream 1 appl TOPICAL BID #15 g 04/22/21 (Antifungal (terbinafine)) finasteride 5 mg tablet 5 mg PO DAILY 90 Days #90 tab 08/28/21 tamsulosin 0.4 mg capsule 0.4 mg PO BID 90 Days #180 cap 08/28/21 acarbose 50 mg tablet 75 mg PO TID 90 Days #405 tab 10/21/21 amlodipine 10 mg tablet 10 mg PO DAILY #30 tab 10/21/21 cyclobenzaprine 10 mg tablet 10 mg PO TID PRN #14 tab 10/21/21 Allergies Allergy/AdvReac Type Severity Reaction Status Date / Time No Known Allergies Allergy Mild NONE Verified 10/21/21 09:32 Review of Systems Review of Systems: Constitutional : No Weight loss, No Fever, pos Chills ENT/Mouth : No sore throat, No Rhinorrhea Eyes: No Eye Pain, No Swelling Cardiovascular : pos Chest Pain, pos SOB, no Dyspnea on Exertion, No Orthopnea, No Edema, pos Palpitations Respiratory : No Cough, No Sputum Gastrointestinal : pos Nausea, No Vomiting, No Diarrhea, No abdominal Pain, No Hematochezia, No Melena Genitourinary : No Dysuria, No Urinary Frequency Musculoskeletal : No joint pain, pos Myalgias, No Joint Swelling Skin : No Skin Lesions, No rash Neuro : No Weakness, No Numbness, No Dizziness, No Headache Psych : No Anxiety/Panic, No Depression Heme/Lymph: No Bruising, No Lymphadenopathy Endocrine : No Polyuria, No Polydipsia All other systems reviewed and are negative [facility] Past Medical History Attestation statement: The following information was validated with the patient. 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 Obesity (BMI 30-39.9) On beta lala at home Right inguinal hernia Spondylosis of lumbosacral spine with radiculopathy Surgical History Hx of colonoscopy Hx of esophagogastroduodenoscopy Hx of right hemicolectomy Family History Family History Father Unknown family medical history Mother Unknown family medical history Social History Social History Alcohol intake: never Patient Tobacco Use Status: Never used Tobacco Physical Exam Vital Signs: Vital Signs: Last Vital Signs Temp 98.7 F 10/21/21 11:34 Pulse 71 10/21/21 11:34 Resp 18 10/21/21 11:34 BP 155/77 H 10/21/21 11:34 Pulse Ox 99 10/21/21 11:34 BMI result Body Mass Index 34.4 Appearance: Alert. Oriented X3. No acute distress. Eyes: Pupils equal, round and reactive to light. ENT: Pharynx normal. Neck: Normal inspection. Neck supple. CVS: Normal heart rate and rhythm. Pulses normal. Respiratory: No respiratory distress. Breath sounds normal. Abdomen: Soft and non-tender. Skin: Skin warm and dry. Normal skin color. Normal skin turgor. Extremities: No lower extremity edema. No calf ttp Neuro: Oriented X 3. No motor deficit. No sensory deficit. Course Course Course Narrative: nonischemic EKG, repeat trop negative 3 days of whole body hurting BP down - no acute findings, stable for DC distal pulses intact atypical pain doubt dissection MDM - Chest Pain MDM Narrative Medical decision making narrative: 71 yo male with hx of BPH, chronic back pain, DM, HTN, GERD, HLD comes in with whole body burning pain that has been getting worse he also feels that he has palpitations at times, his body is hot, his breathing is fast and he feels sick to his stomach. At times he feels cold. His symptoms are somewhat vague and seem viral in nature or infectious. He has no hypoxia or tachycardia and the pain is not pleuritic to suggest PE - I do not appreciate LE swelling or calf pain. Will obtain labs, troponin x 1, EKG, CXR, COVID/flu swabs. IV morphine for body pain, PO tylenol. Dispo per results and findings. Lab Data Result diagrams: 10/21/21 10:02 10/21/21 10:02 Labs: Lab Results 10/21/21 10/21/21 10/21/21 Range/Units 09:57 09:57 09:57 WBC (4.8-10.8) X10*3/uL RBC (4.60-5.80) X10*6/uL Hgb (14.0-18.0) g/dl Hct (42.0-52.0) % MCV (80.0-98.0) fL MCH (27.0-33.0) pg MCHC (31.0-36.0) g/dl RDW (11.0-16.0) % Plt Count (160-400) X10*3/uL MPV (9.4-12.4) fL Immature Gran % (Auto) (0.0-0.4) % Neut % (Auto) (45-73) % Lymph % (Auto) (20-40) % [place] % (Auto) (2-11) % Eos % (Auto) (0-4) % Baso % (Auto) (0-2) % Lymph # (Auto) (1.2-4.9) X10*3/uL [place] # (Auto) (0.1-1.2) X10*3/uL Eos # (Auto) (0.0-0.4) X10*3/uL Baso # (Auto) (0.0-0.2) X10*3/uL Abs Immat Gran (auto) (0.00-0.03) X10*3/uL Absolute Neuts (auto) (2.0-8.3) x10*3/uL Absolute Nucleated RBC (0.0-0.012) X10*3/uL Nucleated RBC % (auto) (0.0-0.2) /100WBC PT (9.9-13.0) SEC INR (0.9-1.1) Sodium (135-145) mmol/L Potassium (3.3-5.1) mmol/L Chloride (96-108) mmol/L Carbon Dioxide (22-29) mmol/L Anion Gap (12-20) BUN (9-16) mg/dL Creatinine (0.5-1.4) mg/dL Estim Creat Clear Calc Estimated GFR Random Glucose (60-115) mg/dL Calcium (8.4-10.2) mg/dL Magnesium (1.6-2.6) mg/dL Total Bilirubin (0.0-1.0) mg/dL Direct Bilirubin (0.0-0.5) mg/dL AST (5-37) U/L ALT (0-40) U/L Alkaline Phosphatase (39-117) U/L Total Creatine Kinase (38-174) U/L Troponin I High Sens (<3.5-35.0) ng/L Total Protein (6.5-8.0) g/dL Albumin (3.5-5.0) g/dL Lipase (8-78) U/L Urine Color YELLOW Urine Appearance CLEAR Urine pH 6.5 (5.0-8.0) Ur Specific [place] <= 1.005 (1.005-1.025) Urine Protein NEG (NEG-TRACE) MG/DL Urine Glucose (UA) 500 H (NEG) MG/DL Urine Ketones NEG (NEG) MG/DL Urine Blood NEG (NEG) Urine Nitrite NEG (NEG) Ur Leukocyte Esterase NEG (NEG) Urine Opiates Screen (Not Detect) Urine Fentanyl Screen (Not Detect) Ur Barbiturates Screen (Not Detect) Ur Phencyclidine Scrn (Not Detect) Ur Amphetamines Screen (Not Detect) U Benzodiazepines Scrn (Not Detect) Urine Cocaine Screen (Not Detect) U Marijuana (THC) Screen (Not Detect) COVID-19 ([facility]) Negative (Negative) COVID-19 Clin Com See Note Influenza Type A ([facility]) Negative (Negative) Influenza Type B ([facility]) Negative (Negative) Influenza A & B Note See Note 10/21/21 10/21/21 10/21/21 Range/Units 09:57 10:02 10:02 WBC 8.1 (4.8-10.8) X10*3/uL RBC 4.49 L (4.60-5.80) X10*6/uL Hgb 13.0 L (14.0-18.0) g/dl Hct 39.7 L (42.0-52.0) % MCV 88.4 (80.0-98.0) fL MCH 29.0 (27.0-33.0) pg MCHC 32.7 (31.0-36.0) g/dl RDW 14.6 (11.0-16.0) % Plt Count 263 (160-400) X10*3/uL MPV 10.1 (9.4-12.4) fL Immature Gran % (Auto) 0.2 (0.0-0.4) % Neut % (Auto) 78.0 H (45-73) % Lymph % (Auto) 14.8 L (20-40) % [place] % (Auto) 6.8 (2-11) % Eos % (Auto) 0.1 (0-4) % Baso % (Auto) 0.1 (0-2) % Lymph # (Auto) 1.2 (1.2-4.9) X10*3/uL [place] # (Auto) 0.6 (0.1-1.2) X10*3/uL Eos # (Auto) 0.0 (0.0-0.4) X10*3/uL Baso # (Auto) 0.0 (0.0-0.2) X10*3/uL Abs Immat Gran (auto) 0.02 (0.00-0.03) X10*3/uL Absolute Neuts (auto) 6.3 (2.0-8.3) x10*3/uL Absolute Nucleated RBC 0.000 (0.0-0.012) X10*3/uL Nucleated RBC % (auto) 0.0 (0.0-0.2) /100WBC PT 11.6 (9.9-13.0) SEC INR 1.0 (0.9-1.1) Sodium (135-145) mmol/L Potassium (3.3-5.1) mmol/L Chloride (96-108) mmol/L Carbon Dioxide (22-29) mmol/L Anion Gap (12-20) BUN (9-16) mg/dL Creatinine (0.5-1.4) mg/dL Estim Creat Clear Calc Estimated GFR Random Glucose (60-115) mg/dL Calcium (8.4-10.2) mg/dL Magnesium (1.6-2.6) mg/dL Total Bilirubin (0.0-1.0) mg/dL Direct Bilirubin (0.0-0.5) mg/dL AST (5-37) U/L ALT (0-40) U/L Alkaline Phosphatase (39-117) U/L Total Creatine Kinase (38-174) U/L Troponin I High Sens (<3.5-35.0) ng/L Total Protein (6.5-8.0) g/dL Albumin (3.5-5.0) g/dL Lipase (8-78) U/L Urine Color Urine Appearance Urine pH (5.0-8.0) Ur Specific [place] (1.005-1.025) Urine Protein (NEG-TRACE) MG/DL Urine Glucose (UA) (NEG) MG/DL Urine Ketones (NEG) MG/DL Urine Blood (NEG) Urine Nitrite (NEG) Ur Leukocyte Esterase (NEG) Urine Opiates Screen Not Detected (Not Detect) Urine Fentanyl Screen Not Detected (Not Detect) Ur Barbiturates Screen Not Detected (Not Detect) Ur Phencyclidine Scrn Not Detected (Not Detect) Ur Amphetamines Screen Not Detected (Not Detect) U Benzodiazepines Scrn Not Detected (Not Detect) Urine Cocaine Screen Not Detected (Not Detect) U Marijuana (THC) Screen Not Detected (Not Detect) COVID-19 ([facility]) (Negative) COVID-19 Clin Com Influenza Type A ([facility]) (Negative) Influenza Type B ([facility]) (Negative) Influenza A & B Note 10/21/21 10/21/21 10/21/21 Range/Units 10:02 10:02 13:07 WBC (4.8-10.8) X10*3/uL RBC (4.60-5.80) X10*6/uL Hgb (14.0-18.0) g/dl Hct (42.0-52.0) % MCV (80.0-98.0) fL MCH (27.0-33.0) pg MCHC (31.0-36.0) g/dl RDW (11.0-16.0) % Plt Count (160-400) X10*3/uL MPV (9.4-12.4) fL Immature Gran % (Auto) (0.0-0.4) % Neut % (Auto) (45-73) % Lymph % (Auto) (20-40) % [place] % (Auto) (2-11) % Eos % (Auto) (0-4) % Baso % (Auto) (0-2) % Lymph # (Auto) (1.2-4.9) X10*3/uL [place] # (Auto) (0.1-1.2) X10*3/uL Eos # (Auto) (0.0-0.4) X10*3/uL Baso # (Auto) (0.0-0.2) X10*3/uL Abs Immat Gran (auto) (0.00-0.03) X10*3/uL Absolute Neuts (auto) (2.0-8.3) x10*3/uL Absolute Nucleated RBC (0.0-0.012) X10*3/uL Nucleated RBC % (auto) (0.0-0.2) /100WBC PT (9.9-13.0) SEC INR (0.9-1.1) Sodium 138 (135-145) mmol/L Potassium 4.2 (3.3-5.1) mmol/L Chloride 101 (96-108) mmol/L Carbon Dioxide 27 (22-29) mmol/L Anion Gap 14 (12-20) BUN 14 (9-16) mg/dL Creatinine 1.00 (0.5-1.4) mg/dL Estim Creat Clear Calc 78.4 Estimated GFR > 60 Random Glucose 281 H (60-115) mg/dL Calcium 9.7 D (8.4-10.2) mg/dL Magnesium 1.9 (1.6-2.6) mg/dL Total Bilirubin 0.4 (0.0-1.0) mg/dL Direct Bilirubin 0.2 (0.0-0.5) mg/dL AST 24 (5-37) U/L ALT 19 (0-40) U/L Alkaline Phosphatase 74 D (39-117) U/L Total Creatine Kinase 363 H (38-174) U/L Troponin I High Sens 6.3 6.9 (<3.5-35.0) ng/L Total Protein 7.5 (6.5-8.0) g/dL Albumin 4.5 (3.5-5.0) g/dL Lipase 28 (8-78) U/L Urine Color Urine Appearance Urine pH (5.0-8.0) Ur Specific [place] (1.005-1.025) Urine Protein (NEG-TRACE) MG/DL Urine Glucose (UA) (NEG) MG/DL Urine Ketones (NEG) MG/DL Urine Blood (NEG) Urine Nitrite (NEG) Ur Leukocyte Esterase (NEG) Urine Opiates Screen (Not Detect) Urine Fentanyl Screen (Not Detect) Ur Barbiturates Screen (Not Detect) Ur Phencyclidine Scrn (Not Detect) Ur Amphetamines Screen (Not Detect) U Benzodiazepines Scrn (Not Detect) Urine Cocaine Screen (Not Detect) U Marijuana (THC) Screen (Not Detect) COVID-19 ([facility]) (Negative) COVID-19 Clin Com Influenza Type A ([facility]) (Negative) Influenza Type B ([facility]) (Negative) Influenza A & B Note ECG Data ECG #1: Attestation: I personally reviewed and interpreted this ECG as follows: ECG interpretation date: 10/21/21 ECG interpretation time: 09:40 Interpretation: Rate: 80 Rhythm: NSR Town[place]: normal Normal P waves. Normal ISABELL. Normal QRS complex. ST T wave : normal no ANGIE qTC: normal prior studies: no acute ischemia The study has been interpreted contemporaneously by me. . Discharge Plan Discharge Clinical Impression: Myalgia, Atypical chest pain Patient Disposition: Home, Self-Care Instructions: Chest Pain (ED), Musculoskeletal Pain (ED) Additional Instructions: return to ED for any worsening symptoms or concerns STOP TAKING 5MG AMLDOPINE Prescriptions: New amlodipine 10 mg tablet 10 mg PO DAILY Qty: 30 0RF cyclobenzaprine 10 mg tablet 10 mg PO TID PRN (Reason: muscle spasm) Qty: 14 0RF No Action (DME) blood-glucose meter [OneTouch Verio Meter] Misc See Rx Instructions .ROUTE .MEDSUPPLY Qty: 1 0RF Rx Instructions: 3 times a day tamsulosin 0.4 mg capsule 0.4 mg PO BID 90 Days Qty: 180 2RF finasteride 5 mg tablet 5 mg PO DAILY 90 Days Qty: 90 2RF celecoxib 200 mg capsule 200 mg PO DAILY 0RF Lantus Solostar U-100 Insulin 100 unit/mL (3 mL) insulin pen 15 unit subcut QAM 90 Days Qty: 15 1RF pioglitazone 15 mg tablet 15 mg PO DAILY 90 Days Qty: 90 1RF terbinafine HCl [Antifungal (terbinafine)] 1 % cream 1 appl topical BID Qty: 15 1RF Rx Instructions: use for 10 days. May repeat with recurrence. amlodipine 5 mg tablet 5 mg PO DAILY Qty: 90 1RF acarbose 50 mg tablet 75 mg PO TID 90 Days Qty: 405 1RF atorvastatin 40 mg tablet 40 mg PO DAILY 0RF omeprazole 20 mg capsule,delayed release(DR/EC) 20 mg PO BID 0RF tramadol 50 mg tablet 50 mg PO Q6H PRN (Reason: Pain) 0RF hydralazine 100 mg tablet 100 mg PO TID 0RF aspirin [Adult Low Dose Aspirin] 81 mg tablet,delayed release (DR/EC) 81 mg PO DAILY 0RF bupropion HCl 150 mg tablet extended release 24 hr 150 mg PO QAM 0RF losartan 100 mg tablet 100 mg PO DAILY 0RF (DME) OneTouch Verio test strips Strip See Rx Instructions ea Not Applicable QID Qty: 300 2RF Rx Instructions: 3 times a day (DME) pen needle, diabetic [BD Theresa 2nd Gen Pen Needle] 32 gauge x 5/32 needle See Rx Instructions .MEDSUPPLY Qty: 50 4RF Rx Instructions: once a day Referrals: Mahad Haddad MD [Primary Care Provider] - 5 days Stand Alone Forms: Work/School Release Interventions: ED Discharge Assessment Last Done: 10/21/21 14:22 Discharge Date/Time: 10/21/21 14:23 Print Language: Rw[place]an
[2021-10-21 09:28] VITALS: BP 158/80; BP 185/92; PULSE 92; RESP 18; TEMP 37.1; O2SAT 98; O2SAT 99; BMI 34.4
--- NOTE | 2021-10-21 09:28 | ECG_ITS ---
Test Reason : chest pain Blood Pressure : / mmHG Vent. Rate : 080 BPM Atrial Rate : 080 BPM P-R Int : 136 ms QRS Dur : 082 ms QT Int : 372 ms P-R-T Axes : 036 -02 017 degrees QTc Int : 429 ms Normal sinus rhythm Nonspecific ST abnormality Borderline ECG When compared with ECG of 12-FEB-2020 06:13, No significant change was found Referred By: Clementine Watkins Electronically Signed By:KIKI POLANCO
[2021-10-21] MEDS: Acetaminophen 325 MG TABLET 650 MG PO (09:45)
[2021-10-21] MEDS: Morphine Sulfate 4 MG/ML CARTRIDGE IVPUSH (09:45)
[2021-10-21] MEDS: ondansetron HCL 4 MG/2 ML VIAL IVPUSH (09:45)
[2021-10-21 10:10] LABS: MANUAL DIFF FLAG NO
[2021-10-21 10:18] LABS: Basophils Percent Auto 0.1 % (0-2); Eosinophils Percent Auto 0.1 % (0-4); Hematocrit 39.7 % (42.0-52.0); Imm Gran Abs Auto 0.02 X10*3/uL (0.00-0.03); Imm Gran Pct Auto 0.2 % (0.0-0.4); Lymphocytes Absolute Auto 1.2 X10*3/uL (1.2-4.9); Lymphocytes Percent Auto 14.8 % (20-40); Mean Corpuscular HGB Conc 32.7 g/dl (31.0-36.0); Mean Corpuscular Volume 88.4 fL (80.0-98.0); Mean Platelet Volume 10.1 fL (9.4-12.4); Monocytes Absolute Auto 0.6 X10*3/uL (0.1-1.2); Monocytes Percent Auto 6.8 % (2-11); Neutrophils Absolute Auto 6.3 x10*3/uL (2.0-8.3); Platelet Count 263 X10*3/uL (160-400); Red Blood Count 4.49 X10*6/uL (4.60-5.80); Red Cell Distribution Width 14.6 % (11.0-16.0); White Blood Count 8.1 X10*3/uL (4.8-10.8)
[2021-10-21 10:21] LABS: Appearance Urine CLEAR; Color Urine YELLOW; Glucose Urine UA 500 MG/DL (NEG); Leukocyte Esterase Urine NEG (NEG); Nitrite Urine NEG (NEG); PH 6.5 (5.0-8.0); Specific Gravity - Urine <= 1.005 (1.005-1.025); Urine Blood NEG (NEG); Urine Ketones NEG (NEG); Urine Protein NEG (NEG-TRACE)
[2021-10-21 10:22] LABS: Prothrombin Time 11.6 SEC (9.9-13.0)
[2021-10-21 10:23] VITALS: BP 158/69; PULSE 70; RESP 18; O2SAT 98
[2021-10-21 10:32] LABS: COVID-19 Test Negative (Negative); IDNOW Serial# 08D9AD1C; Influenza A Negative (Negative); Influenza B2 Negative (Negative)
[2021-10-21 10:38] LABS: Amphetamine Screen Urine Not Detected (Not Detect); Barbiturates, Urine Not Detected (Not Detect); Benzodiazepines Screen Urine Not Detected (Not Detect); Cannabinoid Screen Urine Not Detected (Not Detect); Cocaine Screen Urine Not Detected (Not Detect); Fentanyl, urine Not Detected (Not Detect); Opiate Screen Urine Not Detected (Not Detect); Phencyclidine Screen Urine Not Detected (Not Detect)
[2021-10-21 10:42] LABS: Alanine Aminotransferase 19 U/L (0-40); Albumin Level 4.5 g/dL (3.5-5.0); Alkaline Phosphatase 74 U/L (39-117); Anion Gap 14 (12-20); Aspartate Amino Transferase 24 U/L (5-37); Bilirubin Direct 0.2 mg/dL (0.0-0.5); Bilirubin Total 0.4 mg/dL (0.0-1.0); Blood Urea Nitrogen 14 mg/dL (9-16); Calcium 9.7 mg/dL (8.4-10.2); Carbon Dioxide 27 mmol/L (22-29); Chloride 101 mmol/L (96-108); Creatinine Clr Calc Pharmacy 78.4; Estimated Glomerular Filt Rate > 60; Glucose Random 281 mg/dL (60-115); Lipase 28 U/L (8-78); Magnesium 1.9 mg/dL (1.6-2.6); Potassium 4.2 mmol/L (3.3-5.1); Sodium 138 mmol/L (135-145); Total Protein 7.5 g/dL (6.5-8.0); Troponin-I High Sensitivity 6.3 ng/L (<3.5-35.0)
[2021-10-21 11:34] VITALS: BP 155/77; PULSE 71; RESP 18; TEMP 37.1; O2SAT 99
[2021-10-21 11:37] VITALS: PULSE 66
--- NOTE | 2021-10-21 11:38 | PC.NURSE ---
pt a&ox3, vss, BP remains elevated w no change, NSR on monitor, pt denies chest pain/sob at this point, states he is now having some pain in his lower back - has a hx of back surgery per pt, will continue to monitor.
[2021-10-21 13:48] LABS: Troponin-I High Sensitivity 6.9 ng/L (<3.5-35.0)
== END 2021-10-21 14:23 | disposition home or self-care (01) ==
PROVIDERS: Emergency Provider Emergency Medicine; PCP Internal Medicine
DX: R07.9 Chest pain, unspecified (principal); I10 Essential (primary) hypertension; R00.2 Palpitations; M79.10 Myalgia, unspecified site; Z20.822 Contact with and (suspected) exposure to COVID-19; Z79.899 Other long term (current) drug therapy; Z79.82 Long term (current) use of aspirin
CPT/HCPCS: 36415; 71045; 80048; 80076; 80307; 81003; 82550; 83690; 83735; 84484; 85025; 85610; 87502; 87635; 93005; 96374; 96375; 99284; 99285; J2270; J2405

== ENCOUNTER 2021-10-23 07:12 | Emergency (ER) | payer MEDICARE, SELFPAY ==
--- NOTE | ~2021-10-23 | XR_ITS ---
EXAMINATION: XR LUMBOSACRAL SPINE CLINICAL INFORMATION: Back pain. Rule out abdominal aortic aneurysm. COMPARISON: None. TECHNIQUE: 3 views of the lumbosacral spine. FINDINGS: Bone alignment is normal. No fracture or dislocation is seen. Disc spaces are normal. There is lower lumbar spine facet arthritis. XR/XR lumbar spine 2-3V IMPRESSION: Degenerative changes.
--- NOTE | ~2021-10-23 | CT_ITS ---
EXAMINATION: CT ABDOMEN AND PELVIS WITHOUT CONTRAST CLINICAL INFORMATION: Back pain. Rule out abdominal aortic aneurysm COMPARISON: Previous CT of the abdomen and pelvis most recent February 2020 TECHNIQUE: Multidetector volumetric imaging was performed from the superior aspect of the liver through the pubic symphysis. Sagittal and coronal reformatted images were obtained on the technologist's workstation. This CT examination was performed using dose optimization techniques as appropriate, variously including the following: *Automated exposure control *Adjustment of mA and/or kV according to patient size (this includes techniques or standardized protocols for targeted exams where dose is matched to indication/reason for exam; i.e. extremities or head) *Use of iterative reconstruction technique DLP: 748 mGy-cm FINDINGS: LUNG BASES: There is chronic scarring or subsegmental atelectasis in the right lower lobe adjacent to bony osteophyte. The lung bases are otherwise clear. LIVER, GALLBLADDER, AND BILIARY TREE: The liver is normal in size, shape, and attenuation. No focal hepatic lesion or biliary ductal dilatation is present. The gallbladder is unremarkable with no evidence of radiopaque gallstones, gallbladder wall thickening, or obvious pericholecystic inflammatory changes. PANCREAS: Unremarkable. SPLEEN: Unremarkable. ADRENAL GLANDS: Unremarkable. KIDNEYS AND URETERS: Left renal stones. No hydronephrosis, ureteral dilatation or ureteral stone is seen. Right kidney is normal. BLADDER: Unremarkable. GASTROINTESTINAL TRACT: There are postsurgical changes to the colon. Small and large bowel is otherwise unremarkable. The stomach is unremarkable. ABDOMINAL WALL: No significant hernia is appreciated. LYMPH NODES: Normal. VASCULAR: The abdominal aorta is normal in caliber. No aneurysm is seen. PELVIC VISCERA: Unremarkable. OSSEOUS STRUCTURES: There are mild degenerative changes of the spine. CT/CT abdomen pelvis wo con IMPRESSION: Normal caliber abdominal aorta. No aneurysm is seen. Small left renal stones. Fleischner guidelines were followed.
[2021-10-23 07:15] VITALS: BP 174/100; BP 178/80; PULSE 87; TEMP 36.6; O2SAT 98; BMI 33.0
[2021-10-23 07:26] LABS: Glucose, Whole Blood 306 mg/dL (60-115)
[2021-10-23 07:35] VITALS: BP 178/80; PULSE 87; RESP 18; TEMP 36.6; O2SAT 99
--- NOTE | 2021-10-23 08:24 | ED.BACK ---
HPI - Back Pain/Injury General Chief Complaint: Back Pain/Injury Stated Complaint: back pain Time Seen by Provider: 10/23/21 08:19 Source: patient and EMS Mode of arrival: EMS Limitations: no limitations History of Present Illness HPI Narrative: 71-year-old male Came in by ambulance for acute back pain evaluation. Patient with history of extensive back problem sees pain specialist and patient been treated with injection in the back in the past, patient is scheduled to have another injection this coming week. Patient declined any recent trauma or bending or strenuous activity. Related Data Home Medications Medication Instructions Recorded Confirmed aspirin 81 mg tablet,delayed 81 mg PO DAILY 08/12/20 10/22/21 release (Adult Low Dose Aspirin) atorvastatin 40 mg tablet 40 mg PO DAILY 08/12/20 10/22/21 hydralazine 100 mg tablet 100 mg PO TID 08/12/20 10/22/21 omeprazole 20 mg capsule,delayed 20 mg PO BID 08/12/20 10/22/21 release tramadol 50 mg tablet 50 mg PO Q6H PRN 08/12/20 10/22/21 bupropion HCl 150 mg 24 hr tablet, 150 mg PO QAM 12/17/20 10/22/21 extended release losartan 100 mg tablet 100 mg PO DAILY 12/17/20 10/22/21 celecoxib 200 mg capsule 200 mg PO DAILY 04/22/21 10/22/21 Previous Rx's Medication Instructions Recorded OneTouch Verio test strips (blood #300 ea NS 12/17/20 sugar diagnostic) pen needle, diabetic 32 gauge x #50 ea 12/17/2032 (BD Theresa 2nd Gen Pen Needle) OneTouch Verio Meter #1 ea NS 01/15/21 (blood-glucose meter) insulin glargine 100 unit/mL (3 15 unit (0.15 mL) SUBCUT QAM 90 04/22/21 mL) subcutaneous pen (Lant Days #15 ml Solostar U-100 Insulin) pioglitazone 15 mg tablet 15 mg PO DAILY 90 Days #90 tab 04/22/21 terbinafine HCl 1 % topical cream 1 appl TOPICAL BID #15 g 04/22/21 (Antifungal (terbinafine)) finasteride 5 mg tablet 5 mg PO DAILY 90 Days #90 tab 08/28/21 tamsulosin 0.4 mg capsule 0.4 mg PO BID 90 Days #180 cap 08/28/21 acarbose 50 mg tablet 75 mg PO TID 90 Days #405 tab 10/21/21 amlodipine 10 mg tablet 10 mg PO DAILY #30 tab 10/21/21 cyclobenzaprine 10 mg tablet 10 mg PO TID PRN #14 tab 10/21/21 oxycodone 5 mg tablet 5 mg PO Q8H PRN #5 tab 10/23/21 Allergies Allergy/AdvReac Type Severity Reaction Status Date / Time No Known Allergies Allergy Mild NONE Verified 10/22/21 14:19 Review of Systems Review of Systems: All other systems are reviewed and are negative Constitutional: Reports as per HPI and Reports no additional constitutional complaints Eyes: Reports as per HPI and Reports no additional eye complaints Reports system reviewed and no additional complaints, except as documented Cardiovascular: Reports as per HPI and Reports no additional cardiovascular complaints Respiratory: Reports as per HPI and Reports no additional respiratory complaints Gastrointestinal: Reports as per HPI and Reports no additional gastrointestinal complaints Genitourinary: Reports no additional female genitourinary complaints Musculoskeletal: Reports no additional musculoskeletal complaints Skin/Breast: Reports system reviewed and no additional complaints, except as docu Psychiatric: Reports no additional psychiatric complaints Endocrine: Reports no additional endocrine complaints Hematologic/Lymphatic: Reports no additional hematologic/lymphatic complaints Allergic/Immunologic: Reports no additional allergic/immunologic complaints Reports system reviewed and no additional complaints, except as documented and Reports Abnormal speech present FOR[facility]LY [facility] Past Medical History Medical History Arthropathy of facet joint Chronic pain syndrome 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 associated with type 2 diabetes mellitus Disc degeneration, lumbar DM2 (diabetes mellitus, type 2) Dyslipidemia GERD (gastroesophageal reflux disease) Hx SBO Hypertension assisted (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 Obesity (BMI 30-39.9) On beta lala at home Right inguinal hernia Spondylosis of lumbosacral spine with radiculopathy Surgical History Hx of colonoscopy Hx of esophagogastroduodenoscopy Hx of right hemicolectomy Family History Family History Father Unknown family medical history Mother Unknown family medical history Social History Social History Alcohol intake: never Patient Tobacco Use Status: Never used Tobacco Advance Directives: No Advance Directives Information Provided: Yes Physical Exam Vital Signs: Vital Signs: Last Vital Signs Temp 97.8 F 10/23/21 07:35 Pulse 81 10/23/21 08:58 Resp 19 10/23/21 08:58 BP 168/82 H 10/23/21 08:58 Pulse Ox 98 10/23/21 08:58 BMI result Body Mass Index 33.0 vital signs have been reviewed as appeared to be correct. Blood pressure normal. Heart rate normal. Respiration rate normal. Temperature normal. Oxygen saturation normal. Appearance: Alert. Oriented X3. No acute distress. Head: Normal external exam. Normocephalic. Atraumatic. No Smith signs noted. No raccoon eyes noted Eyes: PERRLA. EOMI. Conjunctiva and sclera normal. Eyelids normal. ENT: TM's Normal. Pharynx normal. Uvula midline. Moist mucous membranes. No trismus noted. No drooling noted. No muffled voice noted. Neck: Normal inspection. Neck supple. FROM. No adenopathy. Thyroid Normal. No meningeal signs. No neck mass noted. CVS: Normal heart rate and rhythm. Heart sound normal. No murmurs noted. Pulses normal throughout. Respiratory: No respiratory distress. Painless inspiration. Breath sounds normal. No wheezes/rales/rhonchi noted. Chest nontender. No accessory muscle usage noted or decreased air movement noted. Abdomen: Soft and nontender. Bowel sounds normal in all 4 quadrants. No distention noted. No organomegaly noted. No visible injury noted. Back: No CVA tenderness. Full range of motion noted. Skin: Skin warm and dry. Normal skin color. Normal skin turgor. No rashes/lesions/lacerations noted. Extremities: No lower extremity edema. Extremities exhibit normal range of motion. Extremities nontender. Neuro: Oriented X 3. Cranial nerve exam: II-XII are grossly intact No motor deficit. No sensory deficit. Reflexes normal. Course Course Course Narrative: assessment and plan. Acute on chronic back pain, negative workup for acute underlying reason for patient's condition. Will discharge the patient home with few pills of oxycodone. MDM - Back Pain/Injury Medical Records Attestation: I reviewed the patient's medical records. Lab Data Attestation: I reviewed the patient's lab results. Result diagrams: 10/23/21 09:17 10/23/21 09:17 Labs: Lab Results 10/23/21 10/23/21 10/23/21 Range/Units 07:19 09:17 09:17 WBC 7.2 (4.8-10.8) X10*3/uL RBC 4.36 L (4.60-5.80) X10*6/uL Hgb 12.5 L (14.0-18.0) g/dl Hct 37.9 L (42.0-52.0) % MCV 86.9 (80.0-98.0) fL MCH 28.7 (27.0-33.0) pg MCHC 33.0 (31.0-36.0) g/dl RDW 13.9 (11.0-16.0) % Plt Count 240 (160-400) X10*3/uL MPV 10.0 (9.4-12.4) fL Immature Gran % (Auto) 0.4 (0.0-0.4) % Neut % (Auto) 73.9 H (45-73) % Lymph % (Auto) 17.3 L (20-40) % [place] % (Auto) 8.1 (2-11) % Eos % (Auto) 0.0 (0-4) % Baso % (Auto) 0.3 (0-2) % Lymph # (Auto) 1.2 (1.2-4.9) X10*3/uL [place] # (Auto) 0.6 (0.1-1.2) X10*3/uL Eos # (Auto) 0.0 (0.0-0.4) X10*3/uL Baso # (Auto) 0.0 (0.0-0.2) X10*3/uL Abs Immat Gran (auto) 0.03 (0.00-0.03) X10*3/uL Absolute Neuts (auto) 5.3 (2.0-8.3) x10*3/uL Absolute Nucleated RBC 0.000 (0.0-0.012) X10*3/uL Nucleated RBC % (auto) 0.0 (0.0-0.2) /100WBC Sodium 138 (135-145) mmol/L Potassium 3.8 (3.3-5.1) mmol/L Chloride 105 (96-108) mmol/L Carbon Dioxide 23 (22-29) mmol/L Anion Gap 14 (12-20) BUN 10 (9-16) mg/dL Creatinine 0.92 (0.5-1.4) mg/dL Estim Creat Clear Calc 83.4 Estimated GFR > 60 POC Glucose 306 H (60-115) mg/dL Random Glucose 284 H (60-115) mg/dL Calcium 9.8 (8.4-10.2) mg/dL Total Bilirubin 0.5 (0.0-1.0) mg/dL Direct Bilirubin 0.3 (0.0-0.5) mg/dL AST 17 (5-37) U/L ALT 20 (0-40) U/L Alkaline Phosphatase 64 (39-117) U/L Total Protein 7.0 (6.5-8.0) g/dL Albumin 4.2 (3.5-5.0) g/dL Lipase 62 (8-78) U/L Urine Color Urine Appearance Urine pH (5.0-8.0) Ur Specific [place] (1.005-1.025) Urine Protein (NEG-TRACE) MG/DL Urine Glucose (UA) (NEG) MG/DL Urine Ketones (NEG) MG/DL Urine Blood (NEG) Urine Nitrite (NEG) Ur Leukocyte Esterase (NEG) Urine RBC (0) /HPF Urine WBC (0-4) /HPF Ur Squamous Epith Cells /LPF Amorphous Sediment /LPF Urine Bacteria /LPF 10/23/21 Range/Units 09:17 WBC (4.8-10.8) X10*3/uL RBC (4.60-5.80) X10*6/uL Hgb (14.0-18.0) g/dl Hct (42.0-52.0) % MCV (80.0-98.0) fL MCH (27.0-33.0) pg MCHC (31.0-36.0) g/dl RDW (11.0-16.0) % Plt Count (160-400) X10*3/uL MPV (9.4-12.4) fL Immature Gran % (Auto) (0.0-0.4) % Neut % (Auto) (45-73) % Lymph % (Auto) (20-40) % [place] % (Auto) (2-11) % Eos % (Auto) (0-4) % Baso % (Auto) (0-2) % Lymph # (Auto) (1.2-4.9) X10*3/uL [place] # (Auto) (0.1-1.2) X10*3/uL Eos # (Auto) (0.0-0.4) X10*3/uL Baso # (Auto) (0.0-0.2) X10*3/uL Abs Immat Gran (auto) (0.00-0.03) X10*3/uL Absolute Neuts (auto) (2.0-8.3) x10*3/uL Absolute Nucleated RBC (0.0-0.012) X10*3/uL Nucleated RBC % (auto) (0.0-0.2) /100WBC Sodium (135-145) mmol/L Potassium (3.3-5.1) mmol/L Chloride (96-108) mmol/L Carbon Dioxide (22-29) mmol/L Anion Gap (12-20) BUN (9-16) mg/dL Creatinine (0.5-1.4) mg/dL Estim Creat Clear Calc Estimated GFR POC Glucose (60-115) mg/dL Random Glucose (60-115) mg/dL Calcium (8.4-10.2) mg/dL Total Bilirubin (0.0-1.0) mg/dL Direct Bilirubin (0.0-0.5) mg/dL AST (5-37) U/L ALT (0-40) U/L Alkaline Phosphatase (39-117) U/L Total Protein (6.5-8.0) g/dL Albumin (3.5-5.0) g/dL Lipase (8-78) U/L Urine Color YELLOW Urine Appearance CLEAR Urine pH 7.5 (5.0-8.0) Ur Specific [place] <= 1.005 (1.005-1.025) Urine Protein NEG (NEG-TRACE) MG/DL Urine Glucose (UA) >=1000 H (NEG) MG/DL Urine Ketones NEG (NEG) MG/DL Urine Blood NEG (NEG) Urine Nitrite NEG (NEG) Ur Leukocyte Esterase NEG (NEG) Urine RBC 0 (0) /HPF Urine WBC 0-2 (0-4) /HPF Ur Squamous Epith Cells NONE /LPF Amorphous Sediment TRACE /LPF Urine Bacteria NONE /LPF Imaging Data CT scan - abdomen: Attestation: I personally reviewed and interpreted this imaging study as follows: Radiologist's impression: No AAA. lumbar spine x-ray: Attestation: I personally reviewed and interpreted this imaging study as follows: Discharge Plan Discharge Clinical Impression: Chronic back pain Patient Disposition: Home, Self-Care Instructions: Back Pain (ED) Prescriptions: New oxycodone 5 mg tablet 5 mg PO Q8H PRN (Reason: pain) Qty: 5 0RF No Action (DME) blood-glucose meter [[employer] Verio Meter] Misc See Rx Instructions .ROUTE .MEDSUPPLY Qty: 1 0RF Rx Instructions: 3 times a day tamsulosin 0.4 mg capsule 0.4 mg PO BID 90 Days Qty: 180 2RF finasteride 5 mg tablet 5 mg PO DAILY 90 Days Qty: 90 2RF amlodipine 10 mg tablet 10 mg PO DAILY Qty: 30 0RF cyclobenzaprine 10 mg tablet 10 mg PO TID PRN (Reason: muscle spasm) Qty: 14 0RF celecoxib 200 mg capsule 200 mg PO DAILY 0RF Lantus Solostar U-100 Insulin 100 unit/mL (3 mL) insulin pen 15 unit subcut QAM 90 Days Qty: 15 1RF pioglitazone 15 mg tablet 15 mg PO DAILY 90 Days Qty: 90 1RF terbinafine HCl [Antifungal (terbinafine)] 1 % cream 1 appl topical BID Qty: 15 1RF Rx Instructions: use for 10 days. May repeat with recurrence. acarbose 50 mg tablet 75 mg PO TID 90 Days Qty: 405 1RF atorvastatin 40 mg tablet 40 mg PO DAILY 0RF omeprazole 20 mg capsule,delayed release(DR/EC) 20 mg PO BID 0RF tramadol 50 mg tablet 50 mg PO Q6H PRN (Reason: Pain) 0RF hydralazine 100 mg tablet 100 mg PO TID 0RF aspirin [Adult Low Dose Aspirin] 81 mg tablet,delayed release (DR/EC) 81 mg PO DAILY 0RF bupropion HCl 150 mg tablet extended release 24 hr 150 mg PO QAM 0RF losartan 100 mg tablet 100 mg PO DAILY 0RF (DME) OneTouch Verio test strips Strip See Rx Instructions ea Not Applicable QID Qty: 300 2RF Rx Instructions: 3 times a day (DME) pen needle, diabetic [BD Theresa 2nd Gen Pen Needle] 32 gauge x 5/32 needle See Rx Instructions .MEDSUPPLY Qty: 50 4RF Rx Instructions: once a day Referrals: Mahad Haddad MD [Primary Care Provider] - 2 days
[2021-10-23 08:58] VITALS: BP 168/82; PULSE 81; RESP 19; O2SAT 98
[2021-10-23 09:22] LABS: MANUAL DIFF FLAG NO
[2021-10-23 09:26] LABS: Basophils Percent Auto 0.3 % (0-2); Hematocrit 37.9 % (42.0-52.0); Hemoglobin 12.5 g/dl (14.0-18.0); Imm Gran Abs Auto 0.03 X10*3/uL (0.00-0.03); Imm Gran Pct Auto 0.4 % (0.0-0.4); Lymphocytes Absolute Auto 1.2 X10*3/uL (1.2-4.9); Lymphocytes Percent Auto 17.3 % (20-40); Mean Corpuscular Hemoglobin 28.7 pg (27.0-33.0); Mean Corpuscular Volume 86.9 fL (80.0-98.0); Monocytes Absolute Auto 0.6 X10*3/uL (0.1-1.2); Monocytes Percent Auto 8.1 % (2-11); Neutrophils Absolute Auto 5.3 x10*3/uL (2.0-8.3); Neutrophils Percent Auto 73.9 % (45-73); Platelet Count 240 X10*3/uL (160-400); Red Blood Count 4.36 X10*6/uL (4.60-5.80); Red Cell Distribution Width 13.9 % (11.0-16.0); White Blood Count 7.2 X10*3/uL (4.8-10.8)
[2021-10-23 09:30] LABS: Appearance Urine CLEAR; Color Urine YELLOW; Glucose Urine UA >=1000 MG/DL (NEG); Leukocyte Esterase Urine NEG (NEG); Nitrite Urine NEG (NEG); PH 7.5 (5.0-8.0); Specific Gravity - Urine <= 1.005 (1.005-1.025); Urine Blood NEG (NEG); Urine Ketones NEG (NEG); Urine Protein NEG (NEG-TRACE)
[2021-10-23 10:15] LABS: RBC Urine 0 /HPF (0); WBC Urine 0-2 /HPF (0-4)
[2021-10-23 10:16] LABS: Amorphous Sediment Urine TRACE /LPF
[2021-10-23 10:47] LABS: Alanine Aminotransferase 20 U/L (0-40); Albumin Level 4.2 g/dL (3.5-5.0); Alkaline Phosphatase 64 U/L (39-117); Anion Gap 14 (12-20); Aspartate Amino Transferase 17 U/L (5-37); Bilirubin Direct 0.3 mg/dL (0.0-0.5); Bilirubin Total 0.5 mg/dL (0.0-1.0); Blood Urea Nitrogen 10 mg/dL (9-16); Calcium 9.8 mg/dL (8.4-10.2); Carbon Dioxide 23 mmol/L (22-29); Chloride 105 mmol/L (96-108); Creatinine Clr Calc Pharmacy 83.4; Estimated Glomerular Filt Rate > 60; Glucose Random 284 mg/dL (60-115); Lipase 62 U/L (8-78); Potassium 3.8 mmol/L (3.3-5.1); Sodium 138 mmol/L (135-145)
[2021-10-23] MEDS: Morphine Sulfate 2 MG/ML CARTRIDGE IVPUSH (11:06)
== END 2021-10-23 11:50 | disposition home or self-care (01) ==
PROVIDERS: Emergency Provider Emergency Medicine; PCP Internal Medicine
DX: G89.29 Other chronic pain (principal); M54.50 Low back pain, unspecified; E11.9 Type 2 diabetes mellitus without complications
CPT/HCPCS: 36415; 72100; 74176; 80048; 80076; 81001; 82947; 83690; 85025; 96374; 99283; 99284; J2270

== ENCOUNTER 2021-10-25 08:45 | Emergency (ER) | payer MEDICARE, SELFPAY ==
[2021-10-25] VITALS (8 sets, daily range): BP systolic 146–202; BP diastolic 74–87; PULSE 69–89; RESP 14–19; TEMP 36.9–37.2; O2SAT 97–100; BMI 30.8
--- NOTE | ~2021-10-25 | CT_ITS ---
EXAMINATION: CT LUMBAR SPINE WITHOUT CONTRAST CLINICAL INFORMATION: Acute and chronic back pain. COMPARISON: CT abdomen and pelvis from 10/25/2021. Lumbar spine MRI from 01/17/2016. TECHNIQUE: Multidetector helical imaging of the lumbar spine was obtained without intravenous contrast. Multiple axial reformats and coronal/sagittal reconstructions were created the technologist workstation for review. This CT examination was performed using dose optimization techniques as appropriate, variously including the following: *Automated exposure control. *Adjustment of mA and/or kV according to patient size (this includes techniques or standardized protocols for targeted exams where dose is matched to indication/reason for exam; i.e. extremities or head). *Use of iterative reconstruction technique. DLP: 798 mGy-cm FINDINGS: Mild left convex curvature of the lumbar spine. Otherwise, normal anatomic alignment. No evidence of acute fracture or traumatic subluxation. The vertebral body heights are maintained. Moderate degenerative disc disease at L4-L5 with vacuum disc phenomenon. Mild degenerative disc disease at all additional lumbar levels. No suspicious lytic or sclerotic osseous lesions. No significant abnormalities of the paraspinal musculature. Small nonobstructive left-sided renal stones. Otherwise, limited evaluation of the abdomen is better characterized on concurrent CT of the abdomen/pelvis. The abdominal aorta is of normal contour and caliber. AXIAL SPINAL LEVELS: L1-L2: Normal annular contour. There is mild bilateral facet joint arthropathy. There is no neural foraminal stenosis. There is no demonstrated spinal canal stenosis. L2-L3: Normal annular contour. There is mild bilateral facet joint arthropathy. There is mild left and no right neural foraminal stenosis. There is no demonstrated spinal canal stenosis. L3-L4: Shallow diffuse disc bulge. There is moderate right and mild left facet joint arthropathy. There is mild right and no left neural foraminal stenosis. There is no demonstrated spinal canal stenosis. L4-L5: Moderate diffuse disc bulge with posterior osseous ridging. Moderate right-sided extraforaminal osteophyte complex. There is moderate bilateral facet joint arthropathy. There is moderate right and no left neural foraminal stenosis. There is no demonstrated spinal canal stenosis. L5-S1: Shallow diffuse disc bulge. There is moderate left and mild right facet joint arthropathy. There is no neural foraminal stenosis. There is no demonstrated spinal canal stenosis. CT/CT lumbar spine wo con IMPRESSION: 1. No evidence of acute fracture or traumatic subluxation of the lumbar spine. 2. Mild to moderate multilevel degenerative spondyloarthropathy of the lumbar spine as described in detail above. Most notably on this limited exam without intrathecal contrast, there are mild to moderate neural foraminal stenoses at L3-L4 and L4-L5. No demonstrated overt spinal canal stenosis.
--- NOTE | ~2021-10-25 | XR_ITS ---
EXAMINATION: XR CHEST CLINICAL INFORMATION: Altered mental status COMPARISON: Multiple previous chest imaging studies with the chest x-ray of 10/21/[address] of 12/20/2018 TECHNIQUE: 2 views of the chest were obtained. FINDINGS: The cardiomediastinal silhouette is stable with mild cardiomegaly megaly and mildly ectatic aorta. The lungs are mildly hypoexpanded. No focal consolidation, changes of congestion, pleural effusions or pneumothorax. No acute osseous abnormality. Mild gaseous distention of the bowel is noted in the visualized upper abdomen, somewhat similar findings are seen on previous x-rays. Osteopenia of the spine. No acute osseous abnormality. XR/XR chest 2V IMPRESSION: No radiographic evidence of pneumonia or pulmonary edema. No acute pulmonary process.
--- NOTE | ~2021-10-25 | CT_ITS ---
EXAMINATION: CT ABDOMEN AND PELVIS WITH CONTRAST CLINICAL INFORMATION: Abdominal pain and back pain. COMPARISON: Multiple previous abdomen and pelvic CTs with the last abdomen and pelvic CT of 10/23/2021. TECHNIQUE: Multidetector volumetric images were obtained from the superior aspect of the liver through the pubic symphysis following administration 85 mL of Omnipaque 350 intravenous contrast. Sagittal and coronal reformatted images were obtained on the technologist's workstation. Oral contrast: No This CT examination was performed using dose optimization techniques as appropriate, variously including the following: *Automated exposure control *Adjustment of mA and/or kV according to patient size (this includes techniques or standardized protocols for targeted exams where dose is matched to indication/reason for exam; i.e. extremities or head) *Use of iterative reconstruction technique DLP: 2834 mGy-cm FINDINGS: LUNG BASES: Mild bronchiectatic changes are noted at the lung bases with mild changes of atelectasis. No pleural or pericardial effusion. Coronary calcifications are noted. Small hiatal hernia. LIVER, GALLBLADDER, AND BILIARY TREE: The liver is normal in size, shape, and attenuation. No focal hepatic lesion or biliary ductal dilatation is present. The gallbladder is unremarkable with no evidence of radiopaque gallstones, gallbladder wall thickening, or obvious pericholecystic inflammatory changes. PANCREAS: Unremarkable. SPLEEN: Unremarkable. ADRENAL GLANDS: Unremarkable. KIDNEYS AND URETERS: The kidneys are normal in size, shape and attenuation. There is symmetrical enhancement of the kidneys. 2. 0.4 cm calculi are noted in the lower pole of the left kidney, approximately 12.7 cm from skin of the posterior mid axillary line. A 0.4 cm calculus is noted in the lower pole of the left kidney (series 13 image 351), 10 cm from posterior mid axillary line skin. A punctate nonobstructing calculus is noted in the mid left kidney. No evidence of additional radiopaque urinary tract calculi. No evidence of hydroureteronephrosis or significant perinephric stranding. BLADDER: Unremarkable. GASTROINTESTINAL TRACT: The stomach is largely decompressed and therefore not optimally evaluated. No abnormal small bowel dilatation is noted. Enteric anastomosis are noted in the right mid to lower abdomen. The colon is normal in caliber. No evidence of colonic wall thickening or pericolonic fat stranding. OMENTUM, MESENTERY AND PERITONEAL CAVITY: No evidence of free intraperitoneal air or fluid. Mild diffuse mesenteric stranding is a stable finding compared to previous CT scans. ABDOMINAL WALL: No significant hernia is appreciated. LYMPH NODES: Normal. VASCULAR: The aortoiliac vessels are normal in caliber. Further evaluation of the vasculature is somewhat limited given the acquisition of the imaging in somewhat delayed postcontrast phase/suboptimal enhancement. PELVIC VISCERA: Unremarkable. OSSEOUS STRUCTURES: No acute or suspicious osseous lesions are noted. There is osteopenia. Vacuum disc phenomena is noted at L4-L5. Degenerative disc disease is noted in the lower thoracic spine. CT/CT abdomen pelvis w con IMPRESSION: No acute or other significant abnormalities are identified to explain patient's symptoms. Left renal nonobstructing calculi are not significantly changed compared to previous studies. Fleischner guidelines were followed.
--- NOTE | ~2021-10-25 | CT_ITS ---
EXAMINATION: CT HEAD WITHOUT CONTRAST CLINICAL INFORMATION: AMS COMPARISON: July 02, 2018 TECHNIQUE: Contiguous axial imaging was performed from the skull base to vertex without intravenous administration of contrast. This CT examination was performed using dose optimization techniques as appropriate, variously including the following: *Automated exposure control *Adjustment of mA and/or kV according to patient size (this includes techniques or standardized protocols for targeted exams where dose is matched to indication/reason for exam; i.e. extremities or head) *Use of iterative reconstruction technique DLP: 860 mGy-cm FINDINGS: There is no evidence of acute intracranial hemorrhage or territorial infarction. No abnormal mass effect or midline shift is seen. Bradford to white matter differentiation is well preserved. No extra-axial fluid collections are identified. The ventricles are normal in size. There is no abnormal attenuation within the brain parenchyma. The osseous structures and soft tissues are normal. The mastoid air cells are well aerated. Mucosal polyps are seen within both maxillary sinuses. CT/CT head/brain wo con IMPRESSION: No acute intracranial pathology.
--- NOTE | ~2021-10-25 | MR_ITS ---
EXAMINATION: MR BRAIN WITHOUT CONTRAST CLINICAL INFORMATION: Patient with increased confusion. COMPARISON: Head CT 10/25/2021. TECHNIQUE: Multiplanar, multisequence imaging of the brain was performed without intravenous contrast. FINDINGS: There is no acute infarction, mass, hemorrhage, or extra-axial collection. The ventricles, sulci, and basilar cisterns are normal in size and configuration. There is dense ossification along the right aspect of the falx within the frontal region. Patchy T2/FLAIR hyperintensity is seen within the cerebral white matter, typical of chronic microangiopathy. The flow voids of the major intracranial arteries appear intact. The bones and extracranial soft tissues are unremarkable. MR/MR head/brain wo con IMPRESSION: No acute intracranial abnormality identified. No infarct or mass. Background changes of chronic microangiopathy.
--- NOTE | 2021-10-25 09:39 | ECG_ITS ---
Test Reason : altered mental status Blood Pressure : / mmHG Vent. Rate : 089 BPM Atrial Rate : 089 BPM P-R Int : 146 ms QRS Dur : 086 ms QT Int : 366 ms P-R-T Axes : -26 000 040 degrees QTc Int : 445 ms Normal sinus rhythm Nonspecific ST and T wave abnormality Abnormal ECG When compared with ECG of 21-OCT-2021 09:28, No significant change was found Referred By: Alyse Hou Electronically Signed By:Mikhail Oswald
[2021-10-25 10:17] LABS: MANUAL DIFF FLAG NO
[2021-10-25 10:19] LABS: Basophils Percent Auto 0.2 % (0-2); Eosinophils Percent Auto 0.4 % (0-4); Hematocrit 40.7 % (42.0-52.0); Hemoglobin 13.5 g/dl (14.0-18.0); Imm Gran Abs Auto 0.04 X10*3/uL (0.00-0.03); Imm Gran Pct Auto 0.5 % (0.0-0.4); Lymphocytes Absolute Auto 1.5 X10*3/uL (1.2-4.9); Mean Corpuscular HGB Conc 33.2 g/dl (31.0-36.0); Mean Corpuscular Hemoglobin 28.5 pg (27.0-33.0); Mean Platelet Volume 9.9 fL (9.4-12.4); Monocytes Absolute Auto 0.5 X10*3/uL (0.1-1.2); Monocytes Percent Auto 5.9 % (2-11); Neutrophils Absolute Auto 6.3 x10*3/uL (2.0-8.3); Platelet Count 269 X10*3/uL (160-400); Red Blood Count 4.73 X10*6/uL (4.60-5.80); Red Cell Distribution Width 14.2 % (11.0-16.0); White Blood Count 8.4 X10*3/uL (4.8-10.8)
[2021-10-25 10:24] LABS: Prothrombin Time 11.9 SEC (9.9-13.0)
[2021-10-25 10:31] LABS: COVID-19 Test Negative (Negative); IDNOW Serial# 16C4AD1C
[2021-10-25 10:33] LABS: Ethanol < 10 mg/dL
[2021-10-25 10:34] LABS: Acetaminophen LAB < 1 mcg/mL (<30); Alanine Aminotransferase 25 U/L (0-40); Albumin Level 4.6 g/dL (3.5-5.0); Alkaline Phosphatase 66 U/L (39-117); Anion Gap 13 (12-20); Aspartate Amino Transferase 21 U/L (5-37); Bilirubin Total 0.5 mg/dL (0.0-1.0); Blood Urea Nitrogen 9 mg/dL (9-16); Calcium 9.9 mg/dL (8.4-10.2); Carbon Dioxide 25 mmol/L (22-29); Chloride 106 mmol/L (96-108); Estimated Glomerular Filt Rate > 60; Glucose Random 192 mg/dL (60-115); Lipase 57 U/L (8-78); Magnesium 1.9 mg/dL (1.6-2.6); Salicylate < 5.0 mg/dL (15-30); Sodium 140 mmol/L (135-145); Total Protein 7.8 g/dL (6.5-8.0)
[2021-10-25 10:37] LABS: Troponin-I High Sensitivity 4.2 ng/L (<3.5-35.0)
[2021-10-25 10:38] LABS: B Type Natriuretic Peptide < 10 pg/mL (<100)
[2021-10-25] MEDS: 0.9 % Sodium Chloride 1,000 ML 999 ML IVCONT (10:55)
--- NOTE | 2021-10-25 11:14 | ED_ITS ---
HPI - Altered Mental Status General Chief Complaint: Altered Mental Status Stated Complaint: back pain Time Seen by Provider: 10/25/21 09:12 Source: patient and EMS Mode of arrival: EMS Limitations: altered mental status History of Present Illness HPI narrative: 71-year-old male with a past medical history of chronic back pain/syndrome, degenerative disc disease of lumbar aspect, diabetes type 2 currently on long- term insulin, hypertension, hyperlipidemia, diabetic polyneuropathy, obesity, GERD, arthritis, BPH with urinary obstruction/LUTS who was recently seen here on 10/19/2021 for chronic back pain and referred to pain management then seen here again on 10/21/2021 for similar complaint and was discharged with 14 tablets of Flexeril and amlodipine and instructed to follow-up with PCP/pain management then returned on 10/24/2019 to and discharged home with 5 oxycodone presenting to the ED via EMS with complaints of back pain although upon EMS arrival patient became unresponsive hour per EMS patient maintained his pulse and respirations. EMS reports that the tramadol and oxycodone prescriptions were in his house and they were completely empty. When I look at the prescription monitoring program it appears that the patient filled the prescription of 60 tramadol is on 10/06/2021. Otherwise on exam patient just continues to request for water and reports that his abdomen and his back hurts and does not answer any other questions just continues to look around the room. MD complaint: altered mental status and confusion Onset (ago): unknown Associated symptoms: other (Abdominal pain and back pain) Related Data Home Medications Medication Instructions Recorded Confirmed aspirin 81 mg tablet,delayed 81 mg PO DAILY 08/12/20 10/22/21 release (Adult Low Dose Aspirin) atorvastatin 40 mg tablet 40 mg PO DAILY 08/12/20 10/22/21 hydralazine 100 mg tablet 100 mg PO TID 08/12/20 10/22/21 omeprazole 20 mg capsule,delayed 20 mg PO BID 08/12/20 10/22/21 release tramadol 50 mg tablet 50 mg PO Q6H PRN 08/12/20 10/22/21 bupropion HCl 150 mg 24 hr tablet, 150 mg PO QAM 12/17/20 10/22/21 extended release losartan 100 mg tablet 100 mg PO DAILY 12/17/20 10/22/21 celecoxib 200 mg capsule 200 mg PO DAILY 04/22/21 10/22/21 Previous Rx's Medication Instructions Recorded OneTouch Verio test strips (blood #300 ea NS 12/17/20 sugar diagnostic) pen needle, diabetic 32 gauge x #50 ea 12/17/20 (BD Theresa 2nd Gen Pen Needle) OneTouch Verio Meter #1 ea NS 01/15/21 (blood-glucose meter) insulin glargine 100 unit/mL (3 15 unit (0.15 mL) SUBCUT QAM 90 04/22/21 mL) subcutaneous pen (Lantus Days #15 ml Solostar U-100 Insulin) pioglitazone 15 mg tablet 15 mg PO DAILY 90 Days #90 tab 04/22/21 terbinafine HCl 1 % topical cream 1 appl TOPICAL BID #15 g 04/22/21 (Antifungal (terbinafine)) finasteride 5 mg tablet 5 mg PO DAILY 90 Days #90 tab 08/28/21 tamsulosin 0.4 mg capsule 0.4 mg PO BID 90 Days #180 cap 08/28/21 acarbose 50 mg tablet 75 mg PO TID 90 Days #405 tab 10/21/21 amlodipine 10 mg tablet 10 mg PO DAILY #30 tab 10/21/21 cyclobenzaprine 10 mg tablet 10 mg PO TID PRN #14 tab 10/21/21 oxycodone 5 mg tablet 5 mg PO Q8H PRN #5 tab 10/23/21 acetaminophen 500 mg tablet 1,000 mg PO QID PRN #5 tab 10/25/21 (Tylenol Extra Strength) cyclobenzaprine 10 mg tablet 10 mg PO Q8H PRN #5 tab 10/25/21 ibuprofen 800 mg tablet 800 mg PO Q8H PRN #5 tab 10/25/21 prednisone 20 mg tablet 40 mg PO DAILY 5 Days #10 tab 10/25/21 Allergies Allergy/AdvReac Type Severity Reaction Status Date / Time No Known Allergies Allergy Mild NONE Verified 10/22/21 14:19 Review of Systems Review of Systems: Yes Unobtainable due to mental status PMFSH Past Medical History Attestation statement: The following information was validated with the patient. 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 Obesity (BMI 30-39.9) On beta lala at home Right inguinal hernia Spondylosis of lumbosacral spine with radiculopathy Surgical History Hx of colonoscopy Hx of esophagogastroduodenoscopy Hx of right hemicolectomy Family History Family History Father Unknown family medical history Mother Unknown family medical history Social History Social History Alcohol intake: never Patient Tobacco Use Status: Never used Tobacco Advance Directives: No Advance Directives Information Provided: No Physical Exam ED Vital Signs: Vital Signs - 24 hr 10/25/21 09:04 10/25/21 09:11 10/25/21 10:00 Temperature Pulse Rate 86 86 89 Respiratory Rate 14 18 18 Blood Pressure 146/87 H 176/87 H 170/81 H Pulse Oximetry 99 99 100 10/25/21 12:09 10/25/21 14:00 Temperature 98.8 F Pulse Rate 83 71 Respiratory Rate 15 19 Blood Pressure 180/85 H 202/87 H Pulse Oximetry 99 99 BMI result Body Mass Index 30.8 Vital signs reviewed and patient's blood pressure 146/87. Pulse 86. Respir ation 14. Oxygen 99% on room air. Appearance: Disorientated. No acute distress. Head: Normal external exam. Normocephalic. Atraumatic. Able to rotate head bilaterally. Eyes: PERRLA. EOMI. No nystagmus noted. Conjunctiva and sclera normal. Eyelids normal. Corneal reflex normal. ENT: EAC normal. TM's Normal. No septal hematoma noted. No hemotympanum noted. Hearing normal. Pharynx normal. Uvula midline. tongue midline. Moist mucous membranes. No trismus noted. No drooling noted. No muffled voice noted. No nystagmus noted. Neck: Normal inspection. Neck supple. FROM. No adenopathy. Trachea midline. Thyroid Normal. No meningeal signs. No neck mass noted. CVS: Normal heart rate and rhythm. Heart sound normal. No murmurs noted. Pulses normal throughout. Respiratory: No respiratory distress. Painless inspiration. Breath sounds normal. No wheezes/rales/rhonchi noted. Chest nontender. No accessory muscle usage noted or decreased air movement noted. Abdomen: Soft and nontender. Bowel sounds normal in all 4 quadrants. No distention noted. No organomegaly noted. No visible injury noted. Back: No CVA tenderness. Full range of motion noted. No obvious deformities, or edema. Mild para-spinal muscular tenderness from lumbar region to coccyx. Full ROM in back and lower extremities. 5/5 strength hip extension/flexion, abduction, adduction. Mild Lumbar pain with hip flexion against resistance. Straight leg raise test negative on right; Straight leg raise test negative on left; Reflexes normal ankle and knee bilaterally; EHL motor strength normal valentine aterally. No rashes/lesion/induration/fluctuance or signs infection noted. Skin: Skin warm and dry. Normal skin color. Normal skin turgor. No rashes/lesions/lacerations noted. Extremities: No lower extremity edema. Extremities exhibit normal range of motion. Extremities nontender. Able to shrug shoulders bilaterally and keep up against resistance. Neuro: Disorientated. No motor deficit. No sensory deficit. Reflexes normal. Moving all extremities. No focal motor deficits. Cranial nerves II-XI intact bilaterally. Facial strength normal. Speech normal. Strength 5/5 throughout. No pronator drift. No tremor noted. No fasciculations noted. No rigidity noted. Muscle tone normal throughout. No asterixis noted. [id number]-[id number] test normal. Hand drop from overhead Misses face. NIHSS score 0. Vascular: +2 radial pulses bilaterally, +2 distal pedal pulses bilaterally. No cyanosis noted the upper lower extremity fingernails or toenails. Normal capillary refill noted to the upper and lower extremity nails. Course Course Course Narrative: 9:40am - 71-year-old male with a past medical history of chronic back pain/syndrome, degenerative disc disease of lumbar aspect, diabetes type 2 currently on long- term insulin, hypertension, hyperlipidemia, diabetic polyneuropathy, obesity, GERD, arthritis, BPH with urinary obstruction/LUTS who was recently seen here on 10/19/2021 for chronic back pain and referred to pain management then seen here again on 10/21/2021 for similar complaint and was discharged with 14 tablets of Flexeril and amlodipine and instructed to follow-up with PCP/pain management then returned on 10/24/2019 to and discharged home with 5 oxycodone presenting to the ED via EMS with complaints of back pain although upon EMS arrival patient became unresponsive hour per EMS patient maintained his pulse and respirations. EMS reports that the tramadol and oxycodone prescriptions were in his house and they were completely empty. When I look at the prescription monitoring program it appears that the patient filled the prescription of 60 tramadol is on 10/06/2021. On exam patient just continues to request for water and reports that his abdomen and his back hurts and does not answer any other questions just continues to look around the room. Although he does not have any focal neuro deficits noted. He is moving his extremities around. He does not have a pronator drift. There is no nystagmus. His voice is normal. There is no slurred speech. There is no drooping of the face or any weakness noted to the cranial nerves. There is no weakness noted to the lower extremities. We also do not know when this altered mental started started. Therefore at this time he is not a tPA candidate due to nonfocal/non disabling symptoms. Lungs are clear to auscultation. CV RRR. He does have pain on palpation to the abdomen and tenderness palpation to the lumbar spine otherwise no signs of trauma. No lower extremity edema or calf tenderness noted. Plan: Labs, EKG, chest x-ray, CT scan of brain, CT scan abdomen pelvis with IV contrast, CT scan of lumbar spine without contrast, drugs of abuse screen, ethanol level, salicylate level, Tylenol level. Provide a L of IV fluids and re-evaluate. Reevaluation(s) Reevaluation #1: - labs reviewed and patient with a mild baseline anemia which is improved when compared to prior. Random glucose 192. Troponin 4.2. Otherwise all other labs are within normal limits. Patient negative for salicylate/acetaminophen and alcohol. Patient negative for COVID. - EKG was normal sinus rhythm with nonspecific ST wave and T-wave abnormalities no acute ischemic changes and similar compared to prior EKG. - therefore at this time pending CT scan of brain/chest x-ray and CT scan abdomen pelvis with IV contrast and CT scan of thoracic spine without contrast and re-evaluate. Time: 11:30 Reevaluation #2: - CT scan of brain within normal limits no acute processes are noted. - CT scan of lumbar spine without contrast revealed degenerative changes of lumbar spine otherwise no other acute processes this is all chronic. - chest x-ray within normal limits no acute processes are noted. - the patient's and son came to the hospital and they were concerned because they report that the patient has another son who was being prescribed morphine and they believe that the patient was taking the other sons morphine and now that the other son is now at a halfway he is unable to get the morphine that he was getting from his other son they believe that he might be buying drugs from the street. - when the is at bedside patient was answering a lot more questions alt jose manuel the reports that she still believes he may be highly confused. - patient admitted while the was at bedside that he also has been buying some liquor to treat his back pain. - therefore at this time I think the patient has polysubstance encephalopathy will plan to admit for further evaluation treatment. Family also wants the patient to see crisis. Time: 13:45 Reevaluation #3: - MRI of brain without contrast negative for any acute processes revealed chronic changes. Patient's blood pressure was noted to be hypertensive and he reports he did not take his amlodipine this morning therefore will give his 10 mg of amlodipine. - patient would like to leave and is reporting that he just wants some pain medications for his chronic back pain and he would not be buying stuff off the street and self medicating with drugs off the street and alcohol although I explained to him that this is not safe and that his and son are very concerned therefore I want him to see a substance abuse counselor versus crisis and this is also what his and son wanted as well. Patient is agreeable to this. I gave the patient Tylenol/Toradol and Flexeril as well. Therefore at this time patient is placed in position as the patient because the patient needs more time to be evaluated by substance abuse/crisis. At this time patient's mentation is now within normal limits he is at baseline for mentation alert and oriented x3. No focal neuro deficit noted. Lungs clear to auscultation. CV RRR. Abdomen is soft and nontender. Will continue to monitor patient is evaluated. Time: 16:49 MDM - Altered Mental Status Medical Records Attestation: I reviewed the patient's medical records. Lab Data Attestation: I reviewed the patient's lab results. Result diagrams: 10/25/21 10:10 10/25/21 10:10 Labs: Lab Results 10/25/21 10/25/21 10/25/21 Range/Units 10:10 10:10 10:10 WBC 8.4 (4.8-10.8) X10*3/uL RBC 4.73 (4.60-5.80) X10*6/uL Hgb 13.5 L (14.0-18.0) g/dl Hct 40.7 L (42.0-52.0) % MCV 86.0 (80.0-98.0) fL MCH 28.5 (27.0-33.0) pg MCHC 33.2 (31.0-36.0) g/dl RDW 14.2 (11.0-16.0) % Plt Count 269 (160-400) X10*3/uL MPV 9.9 (9.4-12.4) fL Immature Gran % (Auto) 0.5 H (0.0-0.4) % Neut % (Auto) 75.0 H (45-73) % Lymph % (Auto) 18.0 L (20-40) % Pickett % (Auto) 5.9 (2-11) % Eos % (Auto) 0.4 (0-4) % Baso % (Auto) 0.2 (0-2) % Lymph # (Auto) 1.5 (1.2-4.9) X10*3/uL Pickett # (Auto) 0.5 (0.1-1.2) X10*3/uL Eos # (Auto) 0.0 (0.0-0.4) X10*3/uL Baso # (Auto) 0.0 (0.0-0.2) X10*3/uL Abs Immat Gran (auto) 0.04 H (0.00-0.03) X10*3/uL Absolute Neuts (auto) 6.3 (2.0-8.3) x10*3/uL Absolute Nucleated RBC 0.000 (0.0-0.012) X10*3/uL Nucleated RBC % (auto) 0.0 (0.0-0.2) /100WBC PT (9.9-13.0) SEC INR (0.9-1.1) Sodium 140 (135-145) mmol/L Potassium 4.0 (3.3-5.1) mmol/L Chloride 106 (96-108) mmol/L Carbon Dioxide 25 (22-29) mmol/L Anion Gap 13 (12-20) BUN 9 (9-16) mg/dL Creatinine 0.92 (0.5-1.4) mg/dL Estim Creat Clear Calc 86.0 Estimated GFR > 60 POC Glucose (60-115) mg/dL Random Glucose 192 H (60-115) mg/dL Calcium 9.9 (8.4-10.2) mg/dL Magnesium 1.9 (1.6-2.6) mg/dL Total Bilirubin 0.5 (0.0-1.0) mg/dL AST 21 (5-37) U/L ALT 25 (0-40) U/L Alkaline Phosphatase 66 (39-117) U/L Troponin I High Sens (<3.5-35.0) ng/L B-Natriuretic Peptide (<100) pg/mL Total Protein 7.8 (6.5-8.0) g/dL Albumin 4.6 (3.5-5.0) g/dL Lipase 57 (8-78) U/L Salicylates < 5.0 L (15-30) mg/dL Urine Opiates Screen (Not Detect) Urine Fentanyl Screen (Not Detect) Acetaminophen < 1 (<30) mcg/mL Ur Barbiturates Screen (Not Detect) Ur Phencyclidine Scrn (Not Detect) Ur Amphetamines Screen (Not Detect) U Benzodiazepines Scrn (Not Detect) Urine Cocaine Screen (Not Detect) U Marijuana (THC) Screen (Not Detect) Ethyl Alcohol mg/dL COVID-19 ([facility]) Negative (Negative) COVID-19 Clin Com See Note 10/25/21 10/25/21 10/25/21 Range/Units 10:10 10:10 10:10 WBC (4.8-10.8) X10*3/uL RBC (4.60-5.80) X10*6/uL Hgb (14.0-18.0) g/dl Hct (42.0-52.0) % MCV (80.0-98.0) fL MCH (27.0-33.0) pg MCHC (31.0-36.0) g/dl RDW (11.0-16.0) % Plt Count (160-400) X10*3/uL MPV (9.4-12.4) fL Immature Gran % (Auto) (0.0-0.4) % Neut % (Auto) (45-73) % Lymph % (Auto) (20-40) % Pickett % (Auto) (2-11) % Eos % (Auto) (0-4) % Baso % (Auto) (0-2) % Lymph # (Auto) (1.2-4.9) X10*3/uL Pickett # (Auto) (0.1-1.2) X10*3/uL Eos # (Auto) (0.0-0.4) X10*3/uL Baso # (Auto) (0.0-0.2) X10*3/uL Abs Immat Gran (auto) (0.00-0.03) X10*3/uL Absolute Neuts (auto) (2.0-8.3) x10*3/uL Absolute Nucleated RBC (0.0-0.012) X10*3/uL Nucleated RBC % (auto) (0.0-0.2) /100WBC PT 11.9 (9.9-13.0) SEC INR 1.0 (0.9-1.1) Sodium (135-145) mmol/L Potassium (3.3-5.1) mmol/L Chloride (96-108) mmol/L Carbon Dioxide (22-29) mmol/L Anion Gap (12-20) BUN (9-16) mg/dL Creatinine (0.5-1.4) mg/dL Estim Creat Clear Calc Estimated GFR POC Glucose (60-115) mg/dL Random Glucose (60-115) mg/dL Calcium (8.4-10.2) mg/dL Magnesium (1.6-2.6) mg/dL Total Bilirubin (0.0-1.0) mg/dL AST (5-37) U/L ALT (0-40) U/L Alkaline Phosphatase (39-117) U/L Troponin I High Sens 4.2 (<3.5-35.0) ng/L B-Natriuretic Peptide (<100) pg/mL Total Protein (6.5-8.0) g/dL Albumin (3.5-5.0) g/dL Lipase (8-78) U/L Salicylates (15-30) mg/dL Urine Opiates Screen (Not Detect) Urine Fentanyl Screen (Not Detect) Acetaminophen (<30) mcg/mL Ur Barbiturates Screen (Not Detect) Ur Phencyclidine Scrn (Not Detect) Ur Amphetamines Screen (Not Detect) U Benzodiazepines Scrn (Not Detect) Urine Cocaine Screen (Not Detect) U Marijuana (THC) Screen (Not Detect) Ethyl Alcohol < 10 mg/dL COVID-19 ([facility]) (Negative) COVID-19 Clin Com 10/25/21 10/25/21 10/25/21 Range/Units 10:11 12:09 12:47 WBC (4.8-10.8) X10*3/uL RBC (4.60-5.80) X10*6/uL Hgb (14.0-18.0) g/dl Hct (42.0-52.0) % MCV (80.0-98.0) fL MCH (27.0-33.0) pg MCHC (31.0-36.0) g/dl RDW (11.0-16.0) % Plt Count (160-400) X10*3/uL MPV (9.4-12.4) fL Immature Gran % (Auto) (0.0-0.4) % Neut % (Auto) (45-73) % Lymph % (Auto) (20-40) % Pickett % (Auto) (2-11) % Eos % (Auto) (0-4) % Baso % (Auto) (0-2) % Lymph # (Auto) (1.2-4.9) X10*3/uL Pickett # (Auto) (0.1-1.2) X10*3/uL Eos # (Auto) (0.0-0.4) X10*3/uL Baso # (Auto) (0.0-0.2) X10*3/uL Abs Immat Gran (auto) (0.00-0.03) X10*3/uL Absolute Neuts (auto) (2.0-8.3) x10*3/uL Absolute Nucleated RBC (0.0-0.012) X10*3/uL Nucleated RBC % (auto) (0.0-0.2) /100WBC PT (9.9-13.0) SEC INR (0.9-1.1) Sodium (135-145) mmol/L Potassium (3.3-5.1) mmol/L Chloride (96-108) mmol/L Carbon Dioxide (22-29) mmol/L Anion Gap (12-20) BUN (9-16) mg/dL Creatinine (0.5-1.4) mg/dL Estim Creat Clear Calc Estimated GFR POC Glucose (60-115) mg/dL Random Glucose (60-115) mg/dL Calcium (8.4-10.2) mg/dL Magnesium (1.6-2.6) mg/dL Total Bilirubin (0.0-1.0) mg/dL AST (5-37) U/L ALT (0-40) U/L Alkaline Phosphatase (39-117) U/L Troponin I High Sens < 3.5 (<3.5-35.0) ng/L B-Natriuretic Peptide < 10 (<100) pg/mL Total Protein (6.5-8.0) g/dL Albumin (3.5-5.0) g/dL Lipase (8-78) U/L Salicylates (15-30) mg/dL Urine Opiates Screen Not Detected (Not Detect) Urine Fentanyl Screen Not Detected (Not Detect) Acetaminophen (<30) mcg/mL Ur Barbiturates Screen Not Detected (Not Detect) Ur Phencyclidine Scrn Not Detected (Not Detect) Ur Amphetamines Screen Not Detected (Not Detect) U Benzodiazepines Scrn Not Detected (Not Detect) Urine Cocaine Screen Not Detected (Not Detect) U Marijuana (THC) Screen Not Detected (Not Detect) Ethyl Alcohol mg/dL COVID-19 ([facility]) (Negative) COVID-19 Clin Com 10/25/21 10/25/21 Range/Units 12:47 14:37 WBC (4.8-10.8) X10*3/uL RBC (4.60-5.80) X10*6/uL Hgb (14.0-18.0) g/dl Hct (42.0-52.0) % MCV (80.0-98.0) fL MCH (27.0-33.0) pg MCHC (31.0-36.0) g/dl RDW (11.0-16.0) % Plt Count (160-400) X10*3/uL MPV (9.4-12.4) fL Immature Gran % (Auto) (0.0-0.4) % Neut % (Auto) (45-73) % Lymph % (Auto) (20-40) % Pickett % (Auto) (2-11) % Eos % (Auto) (0-4) % Baso % (Auto) (0-2) % Lymph # (Auto) (1.2-4.9) X10*3/uL Pickett # (Auto) (0.1-1.2) X10*3/uL Eos # (Auto) (0.0-0.4) X10*3/uL Baso # (Auto) (0.0-0.2) X10*3/uL Abs Immat Gran (auto) (0.00-0.03) X10*3/uL Absolute Neuts (auto) (2.0-8.3) x10*3/uL Absolute Nucleated RBC (0.0-0.012) X10*3/uL Nucleated RBC % (auto) (0.0-0.2) /100WBC PT (9.9-13.0) SEC INR (0.9-1.1) Sodium (135-145) mmol/L Potassium (3.3-5.1) mmol/L Chloride (96-108) mmol/L Carbon Dioxide (22-29) mmol/L Anion Gap (12-20) BUN (9-16) mg/dL Creatinine (0.5-1.4) mg/dL Estim Creat Clear Calc Estimated GFR POC Glucose 123 H (60-115) mg/dL Random Glucose (60-115) mg/dL Calcium (8.4-10.2) mg/dL Magnesium (1.6-2.6) mg/dL Total Bilirubin (0.0-1.0) mg/dL AST (5-37) U/L ALT (0-40) U/L Alkaline Phosphatase (39-117) U/L Troponin I High Sens (<3.5-35.0) ng/L B-Natriuretic Peptide (<100) pg/mL Total Protein (6.5-8.0) g/dL Albumin (3.5-5.0) g/dL Lipase (8-78) U/L Salicylates (15-30) mg/dL Urine Opiates Screen (Not Detect) Urine Fentanyl Screen (Not Detect) Acetaminophen < 1 (<30) mcg/mL Ur Barbiturates Screen (Not Detect) Ur Phencyclidine Scrn (Not Detect) Ur Amphetamines Screen (Not Detect) U Benzodiazepines Scrn (Not Detect) Urine Cocaine Screen (Not Detect) U Marijuana (THC) Screen (Not Detect) Ethyl Alcohol mg/dL COVID-19 ([facility]) (Negative) COVID-19 Clin Com Imaging Data Chest x-ray: Attestation: I personally reviewed and interpreted this imaging study as follows: Radiologist's impression: FINDINGS: The cardiomediastinal silhouette is stable with mild cardiomegaly megaly and mildly ectatic aorta. The lungs are mildly hypoexpanded. No focal consolidation, changes of congestion, pleural effusions or pneumothorax. No acute osseous abnormality. Mild gaseous distention of the bowel is noted in the visualized upper abdomen, somewhat similar findings are seen on previous x-rays. Osteopenia of the spine. No acute osseous abnormality. XR/XR chest 2V IMPRESSION: No radiographic evidence of pneumonia or pulmonary edema. No acute pulmonary process CT scan of brain without contrast: Attestation: I personally reviewed and interpreted this imaging study as follows: Radiologist's impression: FINDINGS: There is no evidence of acute intracranial hemorrhage or territorial infarction. No abnormal mass effect or midline shift is seen. Bradford to white matter differentiation is well preserved. No extra-axial fluid collections are identified. The ventricles are normal in size. There is no abnormal attenuation within the brain parenchyma. The osseous structures and soft tissues are normal. The mastoid air cells are well aerated. Mucosal polyps are seen within both maxillary sinuses. ? CT/CT head/brain wo con IMPRESSION: No acute intracranial pathology. MRI of brain without contrast: Attestation: I personally reviewed and interpreted this imaging study as follows: Radiologist's impression: FINDINGS: There is no acute infarction, mass, hemorrhage, or extra-axial collection.? The ventricles, sulci, and basilar cisterns are normal in size and configuration. There is dense ossification along the right aspect of the falx within the frontal region. Patchy T2/FLAIR hyperintensity is seen within the cerebral white matter, typical of chronic microangiopathy. The flow voids of the major intracranial arteries appear intact. The bones and extracranial soft tissues are unremarkable. MR/MR head/brain wo con IMPRESSION: No acute intracranial abnormality identified. No infarct or mass. Background changes of chronic microangiopathy. CT scan of lumbar spine without contrast: Attestation: I personally reviewed and interpreted this imaging study as follows: Radiologist's impression: FINDINGS: Mild left convex curvature of the lumbar spine. Otherwise, normal anatomic alignment. No evidence of acute fracture or traumatic subluxation. The vertebral body heights are maintained. Moderate degenerative disc disease at L4-L5 with vacuum disc phenomenon. Mild degenerative disc disease at all additional lumbar levels. No suspicious lytic or sclerotic osseous lesions. No significant abnormalities of the paraspinal musculature. Small nonobstructive left-sided renal stones. Otherwise, limited evaluation of the abdomen is better characterized on concurrent CT of the abdomen/pelvis. The abdominal aorta is of normal contour and caliber. AXIAL SPINAL LEVELS: L1-L2: Normal annular contour. There is mild bilateral facet joint arthropathy. There is no neural foraminal stenosis. There is no demonstrated spinal canal stenosis. L2-L3: Normal annular contour. There is mild bilateral facet joint arthropathy. There is mild left and no right neural foraminal stenosis. There is no demonstrated spinal canal stenosis. L3-L4: Shallow diffuse disc bulge.? There is moderate right and mild left facet joint arthropathy. There is mild right and no left neural foraminal stenosis. There is no demonstrated spinal canal stenosis. L4-L5: Moderate diffuse disc bulge with posterior osseous ridging. Moderate right-sided extraforaminal osteophyte complex. There is moderate bilateral facet joint arthropathy. There is moderate right and no left neural foraminal stenosis. There is no demonstrated spinal canal stenosis. L5-S1: Shallow diffuse disc bulge. There is moderate left and mild right facet joint arthropathy. There is no neural foraminal stenosis. There is no demonstrated spinal canal stenosis. CT/CT lumbar spine wo con IMPRESSION: 1. No evidence of acute fracture or traumatic subluxation of the lumbar spine. 2. Mild to moderate multilevel degenerative spondyloarthropathy of the lumbar spine as described in detail above. Most notably on this limited exam without intrathecal contrast, there are mild to moderate neural foraminal stenoses at L3-L4 and L4-L5. No demonstrated overt spinal canal stenosis. ? CT scan abdomen pelvis with IV contrast: Attestation: I personally reviewed and interpreted this imaging study as follows: Radiologist's impression: FINDINGS: LUNG BASES: Mild bronchiectatic changes are noted at the lung bases with mild changes of atelectasis. No pleural or pericardial effusion. Coronary calcifications are noted. Small hiatal hernia. LIVER, GALLBLADDER, AND BILIARY TREE: The liver is normal in size, shape, and attenuation. No focal hepatic lesion or biliary ductal dilatation is present. The gallbladder is unremarkable with no evidence of radiopaque gallstones, gallbladder wall thickening, or obvious pericholecystic inflammatory changes.? PANCREAS: Unremarkable.? SPLEEN: Unremarkable.? ADRENAL GLANDS: Unremarkable.? KIDNEYS AND URETERS: The kidneys are normal in size, shape and attenuation. There is symmetrical enhancement of the kidneys. 2. 0.4 cm calculi are noted in the lower pole of the left kidney, approximately 12.7 cm from skin of the posterior mid axillary line. A 0.4 cm calculus is noted in the lower pole of the left kidney (series 13 image 351), 10 cm from posterior mid axillary line skin. A punctate nonobstructing calculus is noted in the mid left kidney. No evidence of additional radiopaque urinary tract calculi. No evidence of hydroureteronephrosis or significant perinephric stranding. BLADDER: Unremarkable.? GASTROINTESTINAL TRACT: The stomach is largely decompressed and therefore not optimally evaluated. No abnormal small bowel dilatation is noted. Enteric anastomosis are noted in the right mid to lower abdomen. The colon is normal in caliber. No evidence of colonic wall thickening or pericolonic fat stranding. OMENTUM, MESENTERY AND PERITONEAL CAVITY: No evidence of free intraperitoneal air or fluid. Mild diffuse mesenteric stranding is a stable finding compared to previous CT scans. ABDOMINAL WALL: No significant hernia is appreciated.? LYMPH NODES: Normal. VASCULAR: The aortoiliac vessels are normal in caliber. Further evaluation of the vasculature is somewhat limited given the acquisition of the imaging in somewhat delayed postcontrast phase/suboptimal enhancement. PELVIC VISCERA: Unremarkable.? OSSEOUS STRUCTURES: No acute or suspicious osseous lesions are noted. There is osteopenia. Vacuum disc phenomena is noted at L4-L5. Degenerative disc disease is noted in the lower thoracic spine. CT/CT abdomen pelvis w con IMPRESSION: No acute or other significant abnormalities are identified to explain patient's symptoms. Left renal nonobstructing calculi are not significantly changed compared to previous studies.? ? Fleischner guidelines were followed. ECG Data ECG #1: Attestation: I personally reviewed and interpreted this ECG as follows: ECG interpretation date: 10/25/21 ECG interpretation time: 09:44 Interpretation: Normal sinus rhythm with ventricular rate of [address] and T-wave abnormalities no acute ischemic changes are noted. Similar compared to prior EKG 10/21/2021. Critical Care Time Critical Care Time Critical Care Time: Yes Total Critical Care Time: 60 Attestation: I personally attest to this time spent taking care of the patient Discharge Plan Discharge Clinical Impression: Polysubstance abuse, Chronic back pain Patient Disposition: Still a Patient Instructions: Polysubstance Abuse (ED), Chronic Back Pain (DC) Prescriptions: New ibuprofen 800 mg tablet 800 mg PO Q8H PRN (Reason: pain) Qty: 5 0RF acetaminophen [Tylenol Extra Strength] 500 mg tablet 1,000 mg PO QID PRN (Reason: fever or pain) Qty: 5 0RF cyclobenzaprine 10 mg tablet 10 mg PO Q8H PRN (Reason: Muscle spasm) Qty: 5 0RF prednisone 20 mg tablet 40 mg PO DAILY 5 Days Qty: 10 0RF No Action (DME) blood-glucose meter [OneTouch Verio Meter] Misc See Rx Instructions .ROUTE .MEDSUPPLY Qty: 1 0RF Rx Instructions: 3 times a day tamsulosin 0.4 mg capsule 0.4 mg PO BID 90 Days Qty: 180 2RF finasteride 5 mg tablet 5 mg PO DAILY 90 Days Qty: 90 2RF amlodipine 10 mg tablet 10 mg PO DAILY Qty: 30 0RF cyclobenzaprine 10 mg tablet 10 mg PO TID PRN (Reason: muscle spasm) Qty: 14 0RF oxycodone 5 mg tablet 5 mg PO Q8H PRN (Reason: pain) Qty: 5 0RF celecoxib 200 mg capsule 200 mg PO DAILY 0RF Lantus Solostar U-100 Insulin 100 unit/mL (3 mL) insulin pen 15 unit subcut QAM 90 Days Qty: 15 1RF pioglitazone 15 mg tablet 15 mg PO DAILY 90 Days Qty: 90 1RF terbinafine HCl [Antifungal (terbinafine)] 1 % cream 1 appl topical BID Qty: 15 1RF Rx Instructions: use for 10 days. May repeat with recurrence. acarbose 50 mg tablet 75 mg PO TID 90 Days Qty: 405 1RF atorvastatin 40 mg tablet 40 mg PO DAILY 0RF omeprazole 20 mg capsule,delayed release(DR/EC) 20 mg PO BID 0RF tramadol 50 mg tablet 50 mg PO Q6H PRN (Reason: Pain) 0RF hydralazine 100 mg tablet 100 mg PO TID 0RF aspirin [Adult Low Dose Aspirin] 81 mg tablet,delayed release (DR/EC) 81 mg PO DAILY 0RF bupropion HCl 150 mg tablet extended release 24 hr 150 mg PO QAM 0RF losartan 100 mg tablet 100 mg PO DAILY 0RF (DME) OneTouch Verio test strips Strip See Rx Instructions ea Not Applicable QID Qty: 300 2RF Rx Instructions: 3 times a day (DME) pen needle, diabetic [BD Theresa 2nd Gen Pen Needle] 32 gauge x 5/32 needle See Rx Instructions .MEDSUPPLY Qty: 50 4RF Rx Instructions: once a day Referrals: Physician,Unknown J [Primary Care Provider] - 2 days (your pcp) Print Language: Bermudian
[2021-10-25] MEDS: iohexoL 350 MG/ML 100 ML INFUS..BTL IV (11:26)
[2021-10-25 12:39] LABS: Amphetamine Screen Urine Not Detected (Not Detect); Barbiturates, Urine Not Detected (Not Detect); Benzodiazepines Screen Urine Not Detected (Not Detect); Cannabinoid Screen Urine Not Detected (Not Detect); Cocaine Screen Urine Not Detected (Not Detect); Fentanyl, urine Not Detected (Not Detect); Opiate Screen Urine Not Detected (Not Detect); Phencyclidine Screen Urine Not Detected (Not Detect)
[2021-10-25 13:29] LABS: Acetaminophen LAB < 1 mcg/mL (<30); Troponin-I High Sensitivity < 3.5 ng/L (<3.5-35.0)
[2021-10-25] MEDS: Ketorolac Tromethamine 30 MG/ML VIAL IVPUSH (14:28)
[2021-10-25] MEDS: Acetaminophen 325 MG TABLET 975 MG PO (14:28)
[2021-10-25 14:41] LABS: Glucose, Whole Blood 123 mg/dL (60-115)
[2021-10-25] MEDS: Cyclobenzaprine HCl 10 MG TABLET PO (17:15)
[2021-10-25] MEDS: amLODIPine Besylate 10 MG TABLET PO (17:15)
[2021-10-25 23:35] LABS: Glucose, Whole Blood 125 mg/dL (60-115)
[2021-10-26] VITALS (7 sets, daily range): BP systolic 149–195; BP diastolic 78–98; PULSE 73–86; RESP 16–18; TEMP 37–37.2; O2SAT 97–100
--- NOTE | 2021-10-26 04:27 | PC.NURSE ---
pt has back pain and a verbal order for tylenol per dr moore
--- NOTE | 2021-10-26 09:30 | PC.NURSE ---
pt seen by Solo from Care Team
[2021-10-26] MEDS: Ketorolac Tromethamine 30 MG/ML VIAL IM (10:31)
--- NOTE | 2021-10-26 10:34 | MHC.RECOVSUP ---
Recovery Support note: Patient is a 71 year old Tanzanian speaking male who presented to [facility] due to altered mental status. 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 Patient reports he has been having severe back pain after making a force in the wrong direction. Patient reports he has been working with pain management clinics to deal with this issue and that he has received injections that are helpful for up to a week at a time. Patient reports he was working with his primary care doctor to get pain medication to supplement the injections. Patient reports he took the medication more than prescribed due to the pain and that he ran out. Patient reported to this lyric writer that he does not buy medication off the street and that he never has. Patient reports he has trouble sleeping and that he drinks on occasion to help himself go to sleep. Discussed with patient the danger of combining alcohol with pain medication and patient acknowledged. Encouraged patient to reach out to his pain management clinic and primary care to update them on what has been going on and to work with them to establish a new plan to manage this pain. Discussed case with ED provider and CARE Team.
== END 2021-10-26 10:49 | disposition home or self-care (01) ==
PROVIDERS: Physician Assistant Medical; Emergency Provider Emergency Medicine Emergency Medical Services
DX: R41.82 Altered mental status, unspecified (principal); M54.50 Low back pain, unspecified; G89.29 Other chronic pain; E11.9 Type 2 diabetes mellitus without complications; R06.02 Shortness of breath; Z79.4 Long term (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; Z79.899 Other long term (current) drug therapy; Z20.822 Contact with and (suspected) exposure to COVID-19
CPT/HCPCS: 36415; 70450; 70551; 71046; 72131; 74177; 80053; 80143; 80179; 80307; 82077; 82947; 83690; 83735; 83880; 84484; 85025; 85610; 87635; 93005; 96360; 96372; 99285; J1885; Q9967

== ENCOUNTER → 2021-11-04 15:28 | Outpatient (BNVA) | payer MEDICARE, SELFPAY | PROVIDERS: PCP Internal Medicine; Visit Provider Anesthesiology | DX: M47.27 Other spondylosis with radiculopathy, lumbosacral region (principal); M47.819 Spondylosis without myelopathy or radiculopathy, site unspecified; M51.36 Other intervertebral disc degeneration, lumbar region; G89.4 Chronic pain syndrome | CPT/HCPCS: 99212 ==

== ENCOUNTER → 2021-11-18 14:25 | Outpatient (BNVA) | payer MEDICARE, SELFPAY | PROVIDERS: PCP Internal Medicine; Referring Provider Internal Medicine; Visit Provider Internal Medicine | DX: Z01.810 Encounter for preprocedural cardiovascular examination (principal); R07.2 Precordial pain; I10 Essential (primary) hypertension; E11.8 Type 2 diabetes mellitus with unspecified complications; E78.5 Hyperlipidemia, unspecified | CPT/HCPCS: 93005; 99202 ==

== ENCOUNTER 2021-11-26 12:29 | Day surgery (SDC) | payer MEDICARE, SELFPAY ==
[2021-11-18 14:36] VITALS: BMI 32.8
--- NOTE | ~2021-11-26 | FL_ITS ---
EXAMINATION: XR FL WITH IMAGES CLINICAL INFORMATION: Stimulator trial placement in lumbar spine, COMPARISON: None. TECHNIQUE: Fluoroscopy performed by Dr. Lalo Cooper. Fluoroscopy Time: 0.2 minutes. DAP: 1.73 mGycm2. Images: 2. FINDINGS: There are posterior lumbosacral spine fluoroscopy images revealing needle positioned at the L4-L5 disc level with subsequent placement of a small wire with possible implant. No gross bony abnormality seen. FL/FL guidance in OR IMPRESSION: Fluoroscopy provided to referring physician for pain management.
[2021-11-26 12:46] VITALS: BP 179/81; PULSE 103; RESP 18; TEMP 36.6; O2SAT 97
[2021-11-26 12:57] LABS: Glucose, Whole Blood 261 mg/dL (60-115)
--- NOTE | 2021-11-26 14:16 | PC.NURSE ---
note regarding pt's recent cardiology note stating need for further workup. using certified cytotechnologist for sudanese, pt agrees to proceed without anesthesia, with local anesthesia instead. pt verbalizes understanding and agrees with plan
--- NOTE | 2021-11-26 14:38 | MHC.SHP ---
Pre-Procedural Eval Section A Date of Service: 11/26/21 The patient is an INPATIENT: No Changes since office visit: Yes Patient answered all questions The History & Physical has been completed within 30 days and I have reviewed it.: No Section B Chief Complaint: spondalosis Details of Present Illness: spondylosis lumbar spine Relevant Family History (Specify if Yes): No Relevant Social History: None Present Medications: see Short Stay Collaborative assessment Medical History: No relevant PMH History of Previous Operations: No relevant previous surgery Allergies: Allergies Allergy/AdvReac Type Severity Reaction Status Date / Time No Known Allergies Allergy Mild NONE Verified 11/18/21 14:34 Review of Systems Sugical H&P ROS: Negative: Constitution, Cardiovascular, Respiratory, Neurological, Psychiatric, Hem-Onc, Allergic/Immunologic, Gastrointestinal, Genitourinary, Musculoskeletal, Integumentary, Endocrine and Eyes/Ears/Nose/Throat Exam Surgical H&P Exam: Normal: HEENT, Normal: Heart, Normal: Lungs, Normal: Extremities, Normal: Abdomen, Normal: Skin and Normal: Neurological Plan Diagnosis/Plan: Unchanged I have reviewed the history and physical and performed a pertinent physical examination on my patient. No changes have occurred unless specified.
[2021-11-26 15:50] VITALS: BP 157/80; PULSE 96; RESP 18; TEMP 37.4; O2SAT 99
[2021-11-26] MEDS: ceFAZolin Sodium/Dextrose,Iso 2 GM/50 ML PIGGYBACK IV (16:03)
--- NOTE | 2021-11-26 16:13 | PM.OP ---
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 Implants: Sprint percutaneous peripheral nerve stimulator wire Surgeon: Lalo Cooper MD Anesthesia: local Was an Orientation & Mobility Specialist used for this Procedure?: No Estimated blood loss (mL): 0 Pathology: none sent Condition: stable Disposition: PACU
[2021-11-26 17:10] VITALS: TEMP 37.3
--- NOTE | 2021-11-27 07:12 | P.OP_ITS ---
Operative Note Operative Note Date of Service: 11/26/21 Narrative: Percutaneous implantation of peripheral nerve stimulation Sprint system. After the risks, benefits and alternatives were discussed with the patient and informed consent was obtained, patient was placed in the prone position and padded to foster comfort. Time out was performed delineating correct site and side of the procedure , name and of the patient, patient participated in time out procedure. The patient decided to start his treatment with right side stimulation where his pain is most severe. Sterily draped C-arm was brought over the operating field and clear picture of the L5 lamina on the right was delineated on the screen. The upper central portion of the lamina was chosen as a target of the neetle tip incertion . After identifying and marking the intended target, the skin around the planned entry point and the subcutaneous tissues were injected with local anesthetic forming skin wheal.. A percutaneous sleeve and stimulating probe lead introduction system were ass embled, inserted and advanced through the skin wheal to the point of interest under C-arm view in tunnel vision fashion, the introducer needle was delivered to a location in proximity to the nerve. Multiple stimulation parameters were used to deliver stimulation to the nerve in concert with stimulating at multiple positions around the nerve. Nerve target acquisition was confirmed noting generation of in the corresponding to the nerve being stimulated. Various electrical parameter combinations were tested, and the lead location was adjusted (physically relocated) until the patient indicated overlapping the distribution of the patient?s typical region of pain. The stimulating probe was removed from the introducer and a percutaneous lead was guided through the needle and delivered to a location in similar proximity to the nerve. Final location was verified with electrical stimulation. The introducer needle was removed, and the exposed end of the percutaneous lead was attached to an e xternal stimulator unit. Various electrical parameter combinations were again tested until the patient indicated paresthesia or muscle tension overlapping the distribution of the patient?s typical region of pain. After confirming that lead impedance was in the normal range, the external unit was detached, the needle was removed, and the lead was anchored at the skin. The lead was threaded into the connector block and electrical continuity and desired patient response was confirmed. The connector block was attached to the external stimulator unit. The site was covered with a sterile occlusive dressing and a image was taken to document final placement. Upon completion of the procedure the patient was taken outside the OR where he recovered uneventfully he went home without immediate complications.
== END 2021-11-26 17:10 | disposition home or self-care (01) ==
PROVIDERS: PCP Internal Medicine; Visit Provider Anesthesiology
PROC: (CPT 64555; principal; 2021-11-26 14:30)
DX: M47.27 Other spondylosis with radiculopathy, lumbosacral region (principal); M47.819 Spondylosis without myelopathy or radiculopathy, site unspecified; G89.4 Chronic pain syndrome; M51.36 Other intervertebral disc degeneration, lumbar region; I10 Essential (primary) hypertension; E78.5 Hyperlipidemia, unspecified; E11.42 Type 2 diabetes mellitus with diabetic polyneuropathy; Z79.4 Long term (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; Z79.899 Other long term (current) drug therapy; Z90.49 Acquired absence of other specified parts of digestive tract
CPT/HCPCS: 64555; 82947; C1778; J0690; J2250; J2795; J3010

== ENCOUNTER → 2021-12-02 14:05 | Outpatient (BNVA) | payer MEDICARE, SELFPAY | PROVIDERS: PCP Internal Medicine; Visit Provider Nurse Practitioner Family | DX: M47.27 Other spondylosis with radiculopathy, lumbosacral region (principal); M47.819 Spondylosis without myelopathy or radiculopathy, site unspecified; M51.36 Other intervertebral disc degeneration, lumbar region; G89.4 Chronic pain syndrome | CPT/HCPCS: 99212 ==

== ENCOUNTER → 2021-12-07 09:41 | Outpatient (REF) | payer MEDICARE, SELFPAY ==
--- NOTE | ~2021-12-07 | NM_ITS ---
Lexiscan Myocardial perfusion study Indication: Preoperative cardiovascular calcification Technique: The patient was brought in for a Lexiscan perfusion study on 12/07/2021 and was injected 0.4 mg of Lexiscan intravenously. Within a minute of this injection 30 mCi of sestamibi was given intravenously. Images were obtained using the SPECT gamma camera interlaced with the gating device. Images were obtained in supine position. Resting perfusion study was performed on 12/10/2021. Patient was administered 30 mCi of sestamibi intravenously at rest. Images were then obtained in supine position. Total DLP 107mGy-cm. Images were processed with the software and compared side to side in short axis, horizontal long axis and vertical long axis views. Findings: Raw acquisition was reviewed. The stress perfusion study showed mildly diminished tracer uptake in the basal to mid septum. There is improvement with CT attenuation correction and hence could be from soft tissue attenuation. There is also diminished tracer uptake in the inferior wall which improves with CT attenuation correction and hence suggestive of diaphragmatic attenuation artifact. The gated study shows normal LV systolic function with calculated LVEF of 64%. LV cavity is normal in size. The gated study shows normal wall thickening and contraction of segments. Resting study shows minimally reduced tracer uptake in the basal to mid septum. There is improvement with CT attenuation correction. Gating at rest reveals normal wall motion with ejection fraction at 70%. The findings are consistent with fixed septal defect that could be artifactual; less likely to be from a prior infarct. No reversible defects. NM/NM cardiolite stress test Impression: 1. Myocardial perfusion imaging study shows no evidence of ischemia. Fixed septal defect that could be artifactual but cannot exclude a prior infarct. 2. Gated LVEF is 64% during stress and 70% during rest. 3. Transient ischemic dilatation not present. EKG component of the test reported separately.
--- NOTE | 2021-12-07 09:45 | CA_ITS ---
Acquisition Time: 2021-12-07 10:07:20 Total Exercise Time: 00:02:00 Test Indications: CP, PREOP Medications: SEE CHART Protocol: LEXISCAN Max HR: 114 BPM 75% of Pred: 151 BPM Max BP: 130/060 mmHG Max Work Load: 1.0 METS Pharmacological stress test with Lexiscan injection, while sitting and kicking his legs, without anginal symptoms, without arrythmia, with normotensive response to injection, with nondiagnostic EKG for ischemia. Nuclear images pending. Test reviewed with Dr Fong. Referred By: Jonnathan Fong Overread By: MARCUS BAKER
== END ==
LOC: HO.CARD 09:41
PROVIDERS: PCP Internal Medicine; Visit Provider Internal Medicine
DX: Z01.810 Encounter for preprocedural cardiovascular examination (principal); R07.2 Precordial pain
CPT/HCPCS: 78452; 93017; A9500; J0280; J2785

== ENCOUNTER 2021-12-09 14:54 | Outpatient (REF) | payer MEDICARE, SELFPAY ==
[2021-12-09 16:34] LABS: Alanine Aminotransferase 14 U/L (0-40); Alkaline Phosphatase 62 U/L (39-117); Anion Gap 13 (12-20); Aspartate Amino Transferase 18 U/L (5-37); Bilirubin Total 0.4 mg/dL (0.0-1.0); Blood Urea Nitrogen 21 mg/dL (9-16); Calcium 9.5 mg/dL (8.4-10.2); Carbon Dioxide 27 mmol/L (22-29); Chloride 99 mmol/L (96-108); Cholesterol 134 mg/dL; Estimated Glomerular Filt Rate 54; HDL Cholesterol 55 mg/dL; LDL Cholesterol Calculated 65 mg/dl; Potassium 3.8 mmol/L (3.3-5.1); Sodium 135 mmol/L (135-145); Total Protein 6.9 g/dL (6.5-8.0); Triglycerides 70 mg/dL
[2021-12-09 16:35] LABS: Free T4 (Free Thyroxine) 1.12 ng/dL (0.71-1.85); Thyroid Stimulating Hormone 1.13 uIU/mL (0.32-4.0)
[2021-12-09 16:36] LABS: PSA,Total (Free>4and<10) 1.42 ng/mL (0.00-4.00)
[2021-12-09 16:39] LABS: Vitamin B12 750 pg/mL (200-900)
[2021-12-09 17:23] LABS: Microalbum/Creatinine Ratio Ur 5.3 ug/mg cr
[2021-12-09 17:37] LABS: Glucose Fasting 434 mg/dL (60-99)
[2021-12-11 06:02] LABS: LDL Cholesterol Direct 55 mg/dL (<100)
== END 2021-12-09 14:55 | disposition home or self-care (01) ==
LOC: HO.LAB 14:54
PROVIDERS: Internal Medicine Endocrinology, Diabetes & Metabolism; PCP Internal Medicine; Visit Provider Urology
DX: E11.65 Type 2 diabetes mellitus with hyperglycemia (principal); N40.1 Benign prostatic hyperplasia with lower urinary tract symptoms; N13.8 Other obstructive and reflux uropathy; Z12.5 Encounter for screening for malignant neoplasm of prostate
CPT/HCPCS: 36415; 80053; 80061; 82043; 82607; 83721; 84153; 84439; 84443

== ENCOUNTER → 2021-12-11 14:06 | Outpatient (BNVA) | payer MEDICARE, SELFPAY | PROVIDERS: PCP Internal Medicine; Visit Provider Urology | DX: N40.1 Benign prostatic hyperplasia with lower urinary tract symptoms (principal); N13.8 Other obstructive and reflux uropathy; R35.1 Nocturia; R39.12 Poor urinary stream | CPT/HCPCS: 51798; 99212 ==

== ENCOUNTER → 2021-12-22 08:59 | Outpatient (BNVA) | payer MEDICARE, SELFPAY | PROVIDERS: PCP Internal Medicine; Visit Provider Nurse Practitioner Family | DX: M47.27 Other spondylosis with radiculopathy, lumbosacral region (principal); M47.819 Spondylosis without myelopathy or radiculopathy, site unspecified; M51.36 Other intervertebral disc degeneration, lumbar region; G89.4 Chronic pain syndrome | CPT/HCPCS: 99212 ==

== ENCOUNTER → 2021-12-30 09:14 | Outpatient (REF) | payer MEDICARE, SELFPAY ==
--- NOTE | 2021-12-30 09:36 | CA_ITS ---
Transthoracic Echocardiogram Patient (Last, First, Middle): Isaac Sanon, Gender: Male Date of : 1950 Age: 71 Procedure Date: 12/30/2021 Procedure Type: Transthoracic Echocardiogram Location: OP Height: 170.18 cm Weight: 93.44 kg BSA: 2.05 m2 Heart Rate: bpm BP: 118 / 58 mmHg Bulldozer Engineer: HUGH Santillan MD: Jonnathan Fong MD Data Systems Manager: Leighton Moura MD Symptoms: R07.2 - Precordial pain Study Quality: Fair ECG Rhythm: Sinus Conclusions: - 1. Normal LV systolic function with mild asymmetric septal hypertrophy with impaired relaxation with elevated filling pressures 2. Normal cardiac valvular Doppler 3. No gross pericardial effusion Findings Left Ventricle Normal left ventricular size, thickness, and systolic function. The visually estimated ejection fraction is between 65-70%. There is no evidence of regional wall motion abnormalities. Spectral Doppler is indicative of an impaired relaxation filling pattern. Elevated filling pressures. E/E prime ratio is >15, consistent with elevated filling pressures. There is mild septal asymmetric hypertrophy. Peak GLS is -17.9%, within normal limits Right Ventricle Normal right ventricular cavity size and systolic function. Atria Both atria are normal in size. Interatrial shunt cannot be excluded. Aortic Valve The aortic valve structure and function is likely normal. There is no aortic valve stenosis. There is no aortic valve regurgitation. Mitral Valve Normal mitral valve structure and function. There is trace mitral valve regurgitation. There is no mitral valve stenosis. Pulmonic Valve The pulmonic valve was not well visualized. Tricuspid Valve Likely normal tricuspid valve structure and function. Tricuspid regurgitation envelope is inadequate for calculation of right ventricular systolic pressure. Great Vessels All visible segments of the aorta are normal in size. The pulmonary artery was not well visualized. Venous The inferior vena cava was not well visualized. Pericardium/Pleural There is no evidence of pericardial effusion. Measurements 2D Linear Measurements IVSd: 1.56 0.6-0.9/0.6-1.0 cm LVIDd: 3.92 3.9-5.3/4.2-5.9 cm LVIDd Index: 1.91 2.4-3.2/2.2-3.1 cm/m2 LVIDs: 2.21 2.0-3.6 cm LVPWd: 0.99 0.7-1.1 cm LA Diam: 4.10 2.7-3.8/3.0-4.0 cm LAIDs Index: 2.00 1.5-2.3 cm/m2 LV Mass: 219.29 67-162/88-224 g LV Mass Index: 106.97 43-95/49-115 g/m2 LVOT Diam: 2.10 3.0+(-)1.3 cm 2D Systolic Function EF 4C: 60.10 >55% EF 2C: 58.60 >55% EF BiP: 59.20 >55% Mitral Valve MV Pk E: 0.87 MV PK A: 1.08 MV Decel Time: 241.00 E/A: 0.80 E'Lateral: 6.09 E'Medial: 4.68 E/E' Med: 18.70 E/E' Lat: 14.40 PHT: 70.00 MVA PHT: 3.14 Decel Henry: 3.63 Aortic Valve AoV Pk Darius: 1.45 AoV Mn Darius: 1.10 AoV VTI: 0.33 AoV Pk Grad: 8.00 Aov Mn Grad: 5.00 KASI Cont.VTI: 3.56 LVOT LVOT Pk Darius: 1.45 LVOT Mn Darius: 1.08 LVOT VTI: 0.34 LVOT Pk Grad: 8.00 LVOT Mn Grad: 5.00 LVOT Diam: 2.10 LVOT Area: 3.46 Diastolic Function MV Pk E: 0.87 MV Pk A: 1.08 E/A: 0.80 E'Medial: 4.68 E/E' Med: 18.70 E' Laterial: 6.09 E/E' Lat: 14.40 Right Ventricle TAPSE (mm): 19.80 TVS' Darius: 18.20 Great Vessels Aorta Sinus of Valsalva: 3.24 2.0-3.[address] Ridge: 3.03 1.7-3.4 cm Ao Asc: 3.30 2.1-3.4 cm Pulmonary Valve PV Pk Darius: 1.19 Peak PV Grad: 6.00 Updated in Other Vendor System with Status of Final Leighton Moura MD electronically signed on 12/30/2021 2:07:27 PM with status of Final
== END ==
LOC: HO.CARD 09:14
PROVIDERS: PCP Internal Medicine; Visit Provider Internal Medicine
DX: R07.2 Precordial pain (principal)
CPT/HCPCS: 93306; 93356

== ENCOUNTER → 2021-12-31 10:36 | Outpatient (BNVA) | payer MEDICARE, SELFPAY | PROVIDERS: PCP Internal Medicine; Visit Provider Internal Medicine | DX: M47.819 Spondylosis without myelopathy or radiculopathy, site unspecified (principal) | CPT/HCPCS: 99212 ==

== ENCOUNTER 2022-01-18 11:23 | Outpatient (REF) | payer MEDICARE, SELFPAY ==
[2022-01-18 11:27] LABS: MANUAL DIFF FLAG NO
[2022-01-18 11:45] LABS: Basophils Absolute Auto 0.1 X10*3/uL (0.0-0.2); Basophils Percent Auto 0.7 % (0-2); Eosinophils Absolute Auto 0.1 X10*3/uL (0.0-0.4); Eosinophils Percent Auto 0.9 % (0-4); Hematocrit 35.6 % (42.0-52.0); Hemoglobin 11.8 g/dl (14.0-18.0); Imm Gran Abs Auto 0.03 X10*3/uL (0.00-0.03); Imm Gran Pct Auto 0.4 % (0.0-0.4); Lymphocytes Absolute Auto 1.4 X10*3/uL (1.2-4.9); Lymphocytes Percent Auto 17.1 % (20-40); Mean Corpuscular HGB Conc 33.1 g/dl (31.0-36.0); Mean Corpuscular Hemoglobin 29.8 pg (27.0-33.0); Mean Corpuscular Volume 89.9 fL (80.0-98.0); Monocytes Absolute Auto 0.6 X10*3/uL (0.1-1.2); Neutrophils Absolute Auto 6.2 x10*3/uL (2.0-8.3); Neutrophils Percent Auto 73.9 % (45-73); Platelet Count 270 X10*3/uL (160-400); Red Blood Count 3.96 X10*6/uL (4.60-5.80); Red Cell Distribution Width 14.4 % (11.0-16.0); White Blood Count 8.4 X10*3/uL (4.8-10.8)
[2022-01-18 11:52] LABS: Alanine Aminotransferase 15 U/L (0-40); Albumin Level 4.1 g/dL (3.5-5.0); Alkaline Phosphatase 59 U/L (39-117); Anion Gap 13 (12-20); Aspartate Amino Transferase 18 U/L (5-37); Bilirubin Total 0.7 mg/dL (0.0-1.0); Blood Urea Nitrogen 17 mg/dL (9-16); Calcium 8.9 mg/dL (8.4-10.2); Carbon Dioxide 24 mmol/L (22-29); Chloride 104 mmol/L (96-108); Cholesterol 127 mg/dL; Estimated Glomerular Filt Rate > 60; Glucose Fasting 195 mg/dL (60-99); HDL Cholesterol 59 mg/dL; LDL Cholesterol Calculated 57 mg/dl; Potassium 3.9 mmol/L (3.3-5.1); Sodium 137 mmol/L (135-145); Total Protein 6.9 g/dL (6.5-8.0); Triglycerides 56 mg/dL
[2022-01-18 12:04] LABS: PSA,Total (Free>4and<10) 1.27 ng/mL (0.00-4.00)
[2022-01-18 12:10] LABS: Estimated Average Glucose 249 mg/dL; Hemoglobin A1c % 10.3 %
[2022-01-18 12:22] LABS: Appearance Urine CLEAR; Color Urine YELLOW; Glucose Urine UA NEG (NEG); Leukocyte Esterase Urine NEG (NEG); Nitrite Urine NEG (NEG); PH 5.5 (5.0-8.0); Specific Gravity - Urine 1.025 (1.005-1.025); Urine Blood NEG (NEG); Urine Ketones NEG (NEG); Urine Protein NEG (NEG-TRACE)
[2022-01-18 12:45] LABS: Creatinine Urine 130.02 mg/dL; Microalbum/Creatinine Ratio Ur 6.1 ug/mg cr
[2022-01-18 13:09] LABS: WBC Urine 0 /HPF (0-4)
[2022-01-18 13:10] LABS: RBC Urine 0-2 /HPF (0)
== END 2022-01-18 11:24 | disposition home or self-care (01) ==
LOC: HO.LNP 11:23
PROVIDERS: Visit Provider Internal Medicine
DX: Z00.00 Encounter for general adult medical examination without abnormal findings (principal); Z12.5 Encounter for screening for malignant neoplasm of prostate; I10 Essential (primary) hypertension; E11.9 Type 2 diabetes mellitus without complications; E78.00 Pure hypercholesterolemia, unspecified
CPT/HCPCS: 80053; 80061; 81001; 82043; 83036; 84153; 85025

== ENCOUNTER → 2022-01-20 10:46 | Outpatient (BNVA) | payer MEDICARE, SELFPAY | PROVIDERS: PCP Internal Medicine; Visit Provider Internal Medicine Rheumatology | DX: M47.816 Spondylosis without myelopathy or radiculopathy, lumbar region (principal); M25.561 Pain in right knee; M25.562 Pain in left knee; M79.641 Pain in right hand; M79.642 Pain in left hand; M25.551 Pain in right hip; E11.42 Type 2 diabetes mellitus with diabetic polyneuropathy | CPT/HCPCS: 99202 ==

== ENCOUNTER 2022-01-21 09:26 | Outpatient (REF) | payer MEDICARE, SELFPAY ==
--- NOTE | ~2022-01-21 | XR_ITS ---
EXAMINATION: BILATERAL KNEE X-RAY CLINICAL INFORMATION: Pain COMPARISON: Previous x-rays March 2007 TECHNIQUE: 3 views of each knee FINDINGS: Left: Bone alignment is normal. No fracture or dislocation is seen. There is degenerative meniscal calcification. There are small osteophytes at the patellofemoral joint. There is a small osteophyte at the quadriceps tendon insertion to the patella. There is no joint effusion. Right: Bone alignment is normal. No fracture or dislocation is seen. There is degenerative meniscal calcification. There is joint space narrowing at the medial femoral tibial joint. There are small osteophytes at the patellofemoral joint. There is no joint effusion. XR/XR knee RT 3V IMPRESSION: Degenerative changes increased from 2006.
--- NOTE | ~2022-01-21 | XR_ITS ---
EXAMINATION: BILATERAL KNEE X-RAY CLINICAL INFORMATION: Pain COMPARISON: Previous x-rays March 2007 TECHNIQUE: 3 views of each knee FINDINGS: Left: Bone alignment is normal. No fracture or dislocation is seen. There is degenerative meniscal calcification. There are small osteophytes at the patellofemoral joint. There is a small osteophyte at the quadriceps tendon insertion to the patella. There is no joint effusion. Right: Bone alignment is normal. No fracture or dislocation is seen. There is degenerative meniscal calcification. There is joint space narrowing at the medial femoral tibial joint. There are small osteophytes at the patellofemoral joint. There is no joint effusion. XR/XR knee LT 3V IMPRESSION: Degenerative changes increased from 2006.
--- NOTE | ~2022-01-21 | XR_ITS ---
EXAMINATION: BILATERAL HAND X-RAY CLINICAL INFORMATION: Pain COMPARISON: None TECHNIQUE: 3 views of each hand FINDINGS: Right: Bone alignment is normal. No acute fracture or dislocation is seen. There is a mild arthritis at the DIP joint of the thumb. There is periarticular soft tissue calcification or ossification at the IP joint of the thumb may be related to old trauma. Left: Bone alignment is normal. No fracture or dislocation is seen. There is arthritis at the DIP joint of the thumb with small osteophytes. Joint spaces are otherwise normal. Soft tissues are normal. 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
--- NOTE | ~2022-01-21 | XR_ITS ---
EXAMINATION: BILATERAL HAND X-RAY CLINICAL INFORMATION: Pain COMPARISON: None TECHNIQUE: 3 views of each hand FINDINGS: Right: Bone alignment is normal. No acute fracture or dislocation is seen. There is a mild arthritis at the DIP joint of the thumb. There is periarticular soft tissue calcification or ossification at the IP joint of the thumb may be related to old trauma. Left: Bone alignment is normal. No fracture or dislocation is seen. There is arthritis at the DIP joint of the thumb with small osteophytes. Joint spaces are otherwise normal. Soft tissues are normal. 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
--- NOTE | ~2022-01-21 | XR_ITS ---
EXAMINATION: XR HIP, RIGHT CLINICAL INFORMATION: Pain COMPARISON: None TECHNIQUE: Two views of the right hip. FINDINGS: Bone alignment is normal. No fracture or dislocation is seen. There are small superior lateral acetabular osteophytes. Joint spaces are normal. Soft tissues are normal. XR/XR hip RT min 2V IMPRESSION: Mild degenerative changes.
[2022-01-21 10:32] LABS: C Reactive Protein 0.14 mg/dL (< or = 0.50)
[2022-01-21 10:44] LABS: Erythrocyte Sedimentation Rate 17 MM/HR (0-15)
== END 2022-01-21 09:27 | disposition home or self-care (01) ==
LOC: HO.XRAY 09:26
PROVIDERS: PCP Internal Medicine; Visit Provider Internal Medicine Rheumatology
DX: M79.641 Pain in right hand (principal); M79.642 Pain in left hand; M25.561 Pain in right knee; M25.562 Pain in left knee; M25.551 Pain in right hip
CPT/HCPCS: 36415; 73130; 73502; 73562; 85652; 86140

== ENCOUNTER → 2022-03-29 13:09 | Outpatient (BNVA) | payer MEDICARE, SELFPAY | PROVIDERS: PCP Internal Medicine; Visit Provider Anesthesiology | DX: M47.819 Spondylosis without myelopathy or radiculopathy, site unspecified (principal) | CPT/HCPCS: 99212 ==

== ENCOUNTER → 2022-04-14 12:44 | Outpatient (BNVA) | payer MEDICARE, SELFPAY | PROVIDERS: PCP Internal Medicine; Referring Provider Internal Medicine; Visit Provider Nurse Practitioner Family | DX: Z01.810 Encounter for preprocedural cardiovascular examination (principal); R07.2 Precordial pain; I10 Essential (primary) hypertension; E78.5 Hyperlipidemia, unspecified; I42.2 Other hypertrophic cardiomyopathy; R94.31 Abnormal electrocardiogram [ECG] [EKG] | CPT/HCPCS: 93005; 99212 ==

== ENCOUNTER 2022-05-25 12:06 | Day surgery (SDC) | payer MEDICARE, SELFPAY ==
--- NOTE | ~2022-05-25 | FL_ITS ---
EXAMINATION: XR FLUOROSCOPY WITH IMAGES CLINICAL INFORMATION: Spint device. COMPARISON: CT abdomen and pelvis 10/25/2021 TECHNIQUE: Fluoroscopy performed by Dr. Lalo Cooper. Fluoroscopy time: 0.2 minutes. Cumulative Dose: 4.36 mGy. DAP: 1.18 Gycm2. Images: 1. FINDINGS: There is electrode overlying the right lumbosacral junction with tip overlying right L5 lamina. There are degenerative disc changes L4-L5. FL/FL guidance in OR IMPRESSION: Fluoroscopy for pain management procedure.
[2022-05-25 12:17] VITALS: BMI 31.8
[2022-05-25 12:21] VITALS: BP 168/73; PULSE 74; RESP 16; TEMP 36.1; O2SAT 98
--- NOTE | 2022-05-25 12:33 | P.HPSUR_ITS ---
Pre-Procedural Eval Section A Date of Service: 05/25/22 The patient is an INPATIENT: No Changes since office visit: Yes Patient answered all questions The History & Physical has been completed within 30 days and I have reviewed it.: No Section B Chief Complaint: Spondylosis without myelopathy or radiculopathy, Details of Present Illness: as above Relevant Family History (Specify if Yes): No Relevant Social History: None Present Medications: see Short Stay Collaborative assessment Medical History: No relevant PMH History of Previous Operations: Relevant previous surgery/procedure and date(s) Allergies: Allergies Allergy/AdvReac Type Severity Reaction Status Date / Time No Known Allergies Allergy Verified 04/14/22 13:02 Review of Systems Sugical H&P ROS: Negative: Constitution, Cardiovascular, Respiratory, Neurological, Psychiatric, Hem-Onc, Allergic/Immunologic, Gastrointestinal, Genitourinary, Musculoskeletal, Integumentary, Endocrine and Eyes/Ears/ Nose/Throat Exam Surgical H&P Exam: Normal: HEENT, Normal: Heart, Normal: Lungs, Normal: Extremities, Normal: Abdomen, Normal: Skin and Normal: Neurological Plan Diagnosis/Plan: Unchanged I have reviewed the history and physical and performed a pertinent physical examination on my patient. No changes have occurred unless specified.
--- NOTE | 2022-05-25 13:30 | P.BOP_ITS ---
Brief Operative Note Date of Service: 05/25/22 Pre-op diagnosis: spondylosis lumbar Post-op diagnosis: same Procedure: Sprint Lr PNS on the right Implants: none permanent Surgeon: Lalo Cooper MD Anesthesia: local Was an Seismograph Operator used for this Procedure?: No Estimated blood loss (mL): 0 Pathology: none sent Condition: stable Disposition: PACU
[2022-05-25 14:07] VITALS: BP 175/74; PULSE 75; RESP 16; TEMP 36.3; O2SAT 98
== END 2022-05-25 14:29 | disposition home or self-care (01) ==
PROVIDERS: PCP Internal Medicine; Visit Provider Anesthesiology
PROC: (CPT 64555; principal; 2022-05-25 13:00)
DX: M47.819 Spondylosis without myelopathy or radiculopathy, site unspecified (principal); G89.4 Chronic pain syndrome; E11.42 Type 2 diabetes mellitus with diabetic polyneuropathy; Z79.4 Long term (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; E78.5 Hyperlipidemia, unspecified; I10 Essential (primary) hypertension; E66.9 Obesity, unspecified; Z68.31 Body mass index [BMI] 31.0-31.9, adult; Z79.899 Other long term (current) drug therapy
CPT/HCPCS: 64555; C1778; J2795

== ENCOUNTER → 2022-05-26 11:15 | Outpatient (BNVA) | payer MEDICARE, SELFPAY | PROVIDERS: PCP Internal Medicine; Visit Provider Surgery | DX: K40.90 Unilateral inguinal hernia, without obstruction or gangrene, not specified as recurrent (principal) | CPT/HCPCS: 99212 ==

== ENCOUNTER → 2022-05-31 08:01 | Outpatient (BNVA) | payer MEDICARE, SELFPAY | PROVIDERS: PCP Internal Medicine; Visit Provider Anesthesiology | DX: M47.27 Other spondylosis with radiculopathy, lumbosacral region (principal); G89.4 Chronic pain syndrome | CPT/HCPCS: 99212 ==

== ENCOUNTER 2022-06-08 07:44 | Day surgery (SDC) | payer MEDICARE, SELFPAY ==
[2022-06-03 10:03] VITALS: BMI 32.1
--- NOTE | 2022-06-07 09:02 | HO.ANESPROP2 ---
Documented by User: Roxana Agosto NP 06/07/22 09:10 HPI - Anesthesia Eval Consult details Narrative: 71yo M for Right Hernia Repair Inguinal with mesh Cardiac cleared s/p spinal stim trial under local anesthesia 05/25/22 [facility] Active Problems Active Problems: All Active Problems (Updated 06/03/22 @ 10:02 by Za Alonso RN) BPH w urinary obs/LUTS (Acute) Precordial chest pain (Acute) Essential hypertension (Acute) Type 2 diabetes mellitus with unspecified complications (Acute) Other and unspecified hyperlipidemia (Acute) Osteoarthritis of lumbar spine (Acute) Osteoarthritis of hands, bilateral (Acute) Osteoarthritis of both knees (Acute) Osteoarthritis of hip (Acute) Asymmetric septal hypertrophy (Acute) Abnormal EKG (Acute) Right inguinal hernia (Acute) Right inguinal hernia (Acute) DM2 (diabetes mellitus, type 2) (Acute) Disc degeneration, lumbar (Acute) Chronic pain syndrome (Acute) Spondylosis of lumbosacral spine with radiculopathy (Acute) GERD (gastroesophageal reflux disease) (Acute) Obesity (BMI 30-39.9) (Acute) Hypertension (Acute) 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 associated with type 2 diabetes mellitus (Acute) [facility] (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 (Acute) Past Medical History Medical History Chronic pain syndrome 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 associated with type 2 diabetes mellitus Disc degeneration, lumbar DM2 (diabetes mellitus, type 2) GERD (gastroesophageal reflux disease) Hx SBO 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 Obesity (BMI 30-39.9) On beta lala at home Right inguinal hernia S/P placement of nerve stimulator Spondylosis of lumbosacral spine with radiculopathy Family History Family History Father Unknown family medical history Mother Unknown family medical history Family history of problems with anesthesia: No Surgical History Surgical History Hx of colonoscopy Hx of cystoscopy Hx of esophagogastroduodenoscopy Hx of lithotripsy Hx of right hemicolectomy Hx of surgical procedure History of Problems with Anesthesia: No Social History Social History Alcohol intake: never Patient Tobacco Use Status: Never used Tobacco Second Hand Smoke Exposure: No Are you DNR?: No Advance Directives: Yes Advance Directives on File: Yes Advance Directives Date on File: 09/08/14 Recently lost weight without trying: No Nutrition Risks: No Nutritional Risk Poor oral hygiene: No Meds Allergies Allergy/AdvReac Type Severity Reaction Status Date / Time No Known Allergies Allergy Verified 05/31/22 08:15 Home Medications Medication Instructions Recorded Confirmed Last Taken Type aspirin 81 mg tablet,delayed 81 mg PO DAILY 08/12/20 06/03/22 05/31/22 History release (Adult Low Dose Aspirin) atorvastatin 40 mg tablet 40 mg PO DAILY 08/12/20 06/03/22 06/07/22 History hydralazine 100 mg tablet 100 mg PO TID 08/12/20 06/03/22 06/08/22 History omeprazole 20 mg capsule,delayed 20 mg PO BID heartburn 08/12/20 06/03/22 06/07/22 History release hydrochlorothiazide 25 mg tablet 25 mg PO DAILY 11/18/21 06/03/22 Unknown History buprenorphine 2 mg-naloxone 0.5 mg 2 mg sublingual DAILY 12/11/21 06/03/22 06/07/22 History sublingual film tramadol 50 mg tablet 1 tab PO BID PRN Pain, Mild 06/08/22 06/08/22 Unknown History Exam Exam Date and Time: June 07, [id number] Height,Weight and Vital Signs: Height 5 ft 7 in Weight 93.2 kg Pertinent Lab Results Pertinent Lab Results: Laboratory Tests 01/18/22 01/18/22 07:20 07:20 WBC 8.4 Hgb 11.8 L Hct 35.6 L Plt Count 270 Sodium 137 Potassium 3.9 Chloride 104 Carbon Dioxide 24 BUN 17 H Creatinine 0.95 Narrative Narrative: EKG 04/2022 sinus rhythm, LVH with repolarization abnormality, unchanged from last EKG 11/2021, rate 87, QTC 428 milliseconds ECHO 12/2021 Conclusions: - 1.? Normal LV systolic function with mild asymmetric septal? ? hypertrophy with impaired relaxation with elevated filling ? ? ? pressures? 2.? Normal cardiac valvular Doppler? 3. No gross pericardial effusion ?? NM cardiolite stress test 12/2021 Impression: ? 1.? Myocardial perfusion imaging study shows no evidence of ischemia. Fixed septal defect that could be artifactual but cannot exclude a prior infarct. 2.? Gated LVEF is 64% during stress and 70% during rest. 3. Transient ischemic dilatation not present. ? EKG component of the test reported separately. 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 Obesity (BMI 30-39.9) On beta lala at home Right inguinal hernia S/P placement of nerve stimulator Spondylosis of lumbosacral spine with radiculopathy Family History Family History Father Unknown family medical history Mother Unknown family medical history Surgical History Surgical History Hx of colonoscopy Hx of cystoscopy Hx of esophagogastroduodenoscopy Hx of lithotripsy Hx of right hemicolectomy Hx of surgical procedure Social History Social History Alcohol intake: never Patient Tobacco Use Status: Never used Tobacco Second Hand Smoke Exposure: No Are you DNR?: No Advance Directives: Yes Advance Directives on File: Yes Advance Directives Date on File: 09/08/14 Recently lost weight without trying: No Nutrition Risks: No Nutritional Risk Poor oral hygiene: No Meds Allergies Allergy/AdvReac Type Severity Reaction Status Date / Time No Known Allergies Allergy Verified 05/31/22 08:15 Home Medications Medication Instructions Recorded Confirmed Last Taken Type aspirin 81 mg tablet,delayed 81 mg PO DAILY 08/12/20 06/03/22 05/31/22 History release (Adult Low Dose Aspirin) atorvastatin 40 mg tablet 40 mg PO DAILY 08/12/20 06/03/22 06/07/22 History hydralazine 100 mg tablet 100 mg PO TID 08/12/20 06/03/22 06/08/22 History omeprazole 20 mg capsule,delayed 20 mg PO BID heartburn 08/12/20 06/03/22 06/07/22 History release hydrochlorothiazide 25 mg tablet 25 mg PO DAILY 11/18/21 06/03/22 Unknown History buprenorphine 2 mg-naloxone 0.5 mg 2 mg sublingual DAILY 12/11/21 06/03/22 06/07/22 History sublingual film tramadol 50 mg tablet 1 tab PO BID PRN Pain, Mild 06/08/22 06/08/22 Unknown History Exam Airway Mallampati Class: II TM Dist: >3cm Neck ROM: Full Loose/Missing/Broken Teeth: Yes (Multiple missing pre/molars) Assessment and Plan Final Anesthetic Review NPO: Yes ASA Class: III Final Preanesthetic Review: No Changes in Pt Med Stat, Meds/Allgs Chart Reviewed, Consent Obtained/Reviewed and Anes Risks/Benef Reviewed Patient Risk: Intermediate Procedure Risk: Low Anesthetic Plan Anesthetic Plan: GA Disposition: Standard PACU
[2022-06-08] VITALS (12 sets, daily range): BP systolic 118–161; BP diastolic 59–81; PULSE 68–77; RESP 14–17; TEMP 36.8–37.7; O2SAT 97–99
[2022-06-08 08:03] LABS: Glucose, Whole Blood 158 mg/dL (60-115)
[2022-06-08] MEDS: Lactated Ringers 1,000 ML 100 ML IVCONT (08:21)
[2022-06-08 08:40] LABS: Amphetamine Screen Urine Not Detected (Not Detect); Barbiturates, Urine Not Detected (Not Detect); Benzodiazepines Screen Urine Not Detected (Not Detect); Cannabinoid Screen Urine Not Detected (Not Detect); Cocaine Screen Urine Not Detected (Not Detect); Fentanyl, urine Not Detected (Not Detect); Opiate Screen Urine POSITIVE (Not Detect); Phencyclidine Screen Urine Not Detected (Not Detect)
--- NOTE | 2022-06-08 09:37 | HO.ANESPROP2 ---
[facility] Active Problems Active Problems: All Active Problems (Updated 06/03/22 @ 10:02 by Za Alonso RN) BPH w urinary obs/LUTS (Acute) Precordial chest pain (Acute) Essential hypertension (Acute) Type 2 diabetes mellitus with unspecified complications (Acute) Other and unspecified hyperlipidemia (Acute) Osteoarthritis of lumbar spine (Acute) Osteoarthritis of hands, bilateral (Acute) Osteoarthritis of both knees (Acute) Osteoarthritis of hip (Acute) Asymmetric septal hypertrophy (Acute) Abnormal EKG (Acute) Right inguinal hernia (Acute) Right inguinal hernia (Acute) DM2 (diabetes mellitus, type 2) (Acute) Disc degeneration, lumbar (Acute) Chronic pain syndrome (Acute) Spondylosis of lumbosacral spine with radiculopathy (Acute) GERD (gastroesophageal reflux disease) (Acute) Obesity (BMI 30-39.9) (Acute) Hypertension (Acute) 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 associated with type 2 diabetes mellitus (Acute) nursing home (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 (Acute) Past Medical History Medical History (Updated 06/03/22 @ 10:02 by Za Alonso RN) Chronic pain syndrome 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 associated with type 2 diabetes mellitus Disc degeneration, lumbar DM2 (diabetes mellitus, type 2) GERD (gastroesophageal reflux disease) Hx SBO 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 Obesity (BMI 30-39.9) On beta lala at home Right inguinal hernia S/P placement of nerve stimulator Spondylosis of lumbosacral spine with radiculopathy Family History Family History Father Unknown family medical history Mother Unknown family medical history Family history of problems with anesthesia: No Surgical History Surgical History Hx of colonoscopy Hx of cystoscopy Hx of esophagogastroduodenoscopy Hx of lithotripsy Hx of right hemicolectomy Hx of surgical procedure History of Problems with Anesthesia: No Social History Social History Alcohol intake: never Patient Tobacco Use Status: Never used Tobacco Second Hand Smoke Exposure: No Are you DNR?: No Advance Directives: Yes Advance Directives on File: Yes Advance Directives Date on File: 09/08/14 Recently lost weight without trying: No Nutrition Risks: No Nutritional Risk Poor oral hygiene: No Meds Allergies Allergy/AdvReac Type Severity Reaction Status Date / Time No Known Allergies Allergy Verified 05/31/22 08:15 Active Medications: Current Medications Lactated Ringer's (Lr) 1,000 mls @ 100 mls/hr IVCONT .Q10H ZAK Last Admin: 06/08/22 08:21 Dose: 100 mls/hr Home Medications Medication Instructions Recorded Confirmed Last Taken Type aspirin 81 mg tablet,delayed 81 mg PO DAILY 08/12/20 06/03/22 05/31/22 History release (Adult Low Dose Aspirin) atorvastatin 40 mg tablet 40 mg PO DAILY 08/12/20 06/03/22 06/07/22 History hydralazine 100 mg tablet 100 mg PO TID 08/12/20 06/03/22 06/08/22 History omeprazole 20 mg capsule,delayed 20 mg PO BID heartburn 08/12/20 06/03/22 06/07/22 History release hydrochlorothiazide 25 mg tablet 25 mg PO DAILY 11/18/21 06/03/22 Unknown History buprenorphine 2 mg-naloxone 0.5 mg 2 mg sublingual DAILY 12/11/21 06/03/22 06/07/22 History sublingual film tramadol 50 mg tablet 1 tab PO BID PRN Pain, Mild 06/08/22 06/08/22 Unknown History Exam Exam Date and Time: June 08, 2022 0937 Height,Weight and Vital Signs: Height 5 ft 7 in Weight 93.2 kg Last Vital Signs Temp 98.7 F 06/08/22 08:01 Pulse 77 06/08/22 08:01 Resp 17 06/08/22 08:01 BP 151/76 H 06/08/22 08:01 Pulse Ox 97 06/08/22 08:01 O2 Del Method 06/08/22 08:01 Pertinent Lab Results Pertinent Lab Results: Laboratory Tests 06/08/22 06/08/22 07:48 07:55 POC Glucose 158 H Urine Opiates Screen POSITIVE H Urine Fentanyl Screen Not Detected Ur Barbiturates Screen Not Detected Ur Phencyclidine Scrn Not Detected Ur Amphetamines Screen Not Detected U Benzodiazepines Scrn Not Detected Urine Cocaine Screen Not Detected U Marijuana (THC) Screen Not Detected Airway Mallampati Class: III TM Dist: >3cm Neck ROM: Full Assessment and Plan Assessment Anesthesia Assessment: Anesthesia Plan Discussed and Chart Reviewed Final Anesthetic Review Family History of Problems with Anesthesia: No History of Problems with Anesthesia: No NPO: Yes ASA Class: III Final Preanesthetic Review: No Changes in Pt Med Stat, Meds/Allgs Chart Reviewed, Consent Obtained/Reviewed and Anes Risks/Benef Reviewed Patient Risk: Intermediate Procedure Risk: Low Anesthetic Plan Anesthetic Plan: GA Disposition: Standard PACU
--- NOTE | 2022-06-08 11:06 | P.OP_ITS ---
Operative Note Operative Note Date of Service: 06/08/22 Narrative: Preop diagnosis: right inguinal hernia Postop diagnosis: Right inguinal hernia, indirect procedure: Repair of right inguinal hernia with mesh Surgeon: Jesse Schulz MD offset assistant press operator: ERICA Umana The patient is a 71-year-old male with a reducible mass on the right groin consistent with a right inguinal hernia. He wanted to proceed with repair. He understood the technique of repair with mesh. He was aware of the risks, benefits, and alternatives. e was brought to the operating room and placed supine on the table under general anesthesia via laryngeal mask airway. The right groin was prepped and draped in the usual sterile fashion. A surgical time-out was done. the patient received cefazolin 2 g IV preoperatively. I infiltrated the planned line of incision with lidocaine 1%. I made a short incision along an imaginary line from the anterior superior iliac spine to the pubic ramus using blade 15. This was carried down with electrocautery through the full-thickness of the skin and subcutaneous fat down to the external oblique aponeurosis. I bluntly dissected the aponeurosis to define the external ring. I made an incision on the external oblique aponeurosis using blade 15. And this was extended inferomedially to connect with the external ring using an open tip pair of scissors. Inguinal canal was therefore entered. I applied hemostats on the divided edges of the aponeurosis. I bluntly dissected the underside with my finger to create space for the mesh. I then bluntly dissected the spermatic cord and its contents with my index finger until was able to apply a Jose Angel drain around this. This Jose Angel drain was used for retraction. I gently dissected the cord to visualize the vas deferens and the accompanying vessels. By doing so was able to see the hernia sac this was gently from the rest of the cord contents until this was completely reduced through the internal ring. This was therefore an indirect hernia. I reinforced this internal ring with a medium-sized plug. The plug was secured with Prolene 2-0 sutures to shelving edge of the inguinal ligament laterally and the internal oblique superiorly and medially. I reinforced the floor of the canal with a keyhole mesh. The tails of the mesh were passed around the cord at the level of the internal ring and were secured together with Prolene 2 sutures. I flattened the mesh and secured this to the shelving edge of the inguinal meant laterally, internal oblique superiorly and medially and the pubic ramus inferomedially using Prolene 2 sutures. I observed for hemostasis. Once hemostasis was confirmed, I proceeded to then irrigate. I removed the [place] drain. I closed the external oblique aponeurosis with a running Dexon 2-0 stitch to re-create the external ring. Cutaneous layer was reapposed with Dexon 3-0 interrupted sutures. Skin closure was achieved with Dexon 4-0 subcuticular running stitch. Steri-Strips and dressings were applied. The incision was infiltrated with Marcaine 0.5% for postop analgesia. The procedure was completed. The patient tolerated procedure well. There were no immediate complications. Initial and final counts of sponges and instruments were correct. Estimated blood loss about 20 cc The patient was extubated without difficulty and transferred to the recovery room with stable vital signs.
[2022-06-08] MEDS: oxyCODONE HCl Immed Release 5 MG TABLET 10 MG PO (11:34)
[2022-06-08] MEDS: fentaNYL citrate/PF 100 MCG/2 ML VIAL 50 MCG IVPUSH ×4 (11:35→12:28)
== END 2022-06-08 13:51 | disposition home or self-care (01) ==
PROVIDERS: Nurse Practitioner; PCP Internal Medicine; Visit Provider Surgery
PROC: (CPT 49505; principal; 2022-06-08 09:50)
DX: K40.90 Unilateral inguinal hernia, without obstruction or gangrene, not specified as recurrent (principal); K21.9 Gastro-esophageal reflux disease without esophagitis; G89.4 Chronic pain syndrome; M47.26 Other spondylosis with radiculopathy, lumbar region; I10 Essential (primary) hypertension; E11.42 Type 2 diabetes mellitus with diabetic polyneuropathy; Z79.4 Long term (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; Z79.82 Long term (current) use of aspirin; Z79.899 Other long term (current) drug therapy
CPT/HCPCS: 49505; 80307; 82947; C1781; J0690; J1100; J2250; J2405; J2795; J3010

== ENCOUNTER → 2022-06-18 08:32 | Outpatient (BNVA) | payer MEDICARE, SELFPAY | PROVIDERS: PCP Internal Medicine; Visit Provider Urology | DX: N40.1 Benign prostatic hyperplasia with lower urinary tract symptoms (principal); N13.8 Other obstructive and reflux uropathy | CPT/HCPCS: 51798; 99212 ==

== ENCOUNTER 2022-07-13 07:41 | Outpatient (REF) | payer MEDICARE, SELFPAY ==
[2022-07-13 10:08] LABS: Anion Gap 14 (12-20); Blood Urea Nitrogen 14 mg/dL (9-16); Calcium 9.4 mg/dL (8.4-10.2); Carbon Dioxide 25 mmol/L (22-29); Chloride 103 mmol/L (96-108); Estimated Glomerular Filt Rate > 60; Potassium 4.4 mmol/L (3.3-5.1); Sodium 138 mmol/L (135-145)
== END 2022-07-13 07:42 | disposition home or self-care (01) ==
LOC: HO.LAB 07:41
PROVIDERS: PCP Internal Medicine; Visit Provider Internal Medicine Nephrology
DX: I10 Essential (primary) hypertension (principal)
CPT/HCPCS: 36415; 80051; 82310; 82565; 84520

== ENCOUNTER 2022-07-23 10:53 | Outpatient (REF) | payer MEDICARE, SELFPAY ==
[2022-07-23 12:07] LABS: Estimated Average Glucose 177 mg/dL; Hemoglobin A1c % 7.8 %
[2022-07-23 14:07] LABS: Alanine Aminotransferase 15 U/L (0-40); Albumin Level 4.2 g/dL (3.5-5.0); Alkaline Phosphatase 59 U/L (39-117); Aspartate Amino Transferase 17 U/L (5-37); Bilirubin Direct 0.2 mg/dL (0.0-0.5); Bilirubin Total 0.5 mg/dL (0.0-1.0); Cholesterol 144 mg/dL; Glucose Fasting 139 mg/dL (60-99); HDL Cholesterol 69 mg/dL; LDL Cholesterol Calculated 63 mg/dl; Triglycerides 63 mg/dL
[2022-07-23 15:10] LABS: Reflex LDLD? No
== END 2022-07-23 10:54 | disposition home or self-care (01) ==
LOC: HO.LNP 10:53
PROVIDERS: Visit Provider Internal Medicine
DX: Z13.89 Encounter for screening for other disorder (principal)
CPT/HCPCS: 80061; 80076; 82947; 83036

== ENCOUNTER → 2022-07-26 15:18 | Outpatient (BNVA) | payer MEDICARE, SELFPAY | PROVIDERS: PCP Internal Medicine; Visit Provider Anesthesiology | DX: M47.819 Spondylosis without myelopathy or radiculopathy, site unspecified (principal) | CPT/HCPCS: 99212 ==

== ENCOUNTER 2022-09-04 08:17 | Emergency (ER) | payer MEDICARE, SELFPAY ==
--- NOTE | ~2022-09-04 | CT_ITS ---
EXAMINATION: CT ABDOMEN AND PELVIS WITHOUT CONTRAST CLINICAL INFORMATION: Right flank pain COMPARISON: CT abdomen pelvis October 25, 2021 TECHNIQUE: Multidetector volumetric imaging was performed from the superior aspect of the liver through the pubic symphysis. Sagittal and coronal reformatted images were obtained on the technologist's workstation. This CT examination was performed using dose optimization techniques as appropriate, variously including the following: *Automated exposure control *Adjustment of mA and/or kV according to patient size (this includes techniques or standardized protocols for targeted exams where dose is matched to indication/reason for exam; i.e. extremities or head) *Use of iterative reconstruction technique DLP: 725 mGy-cm FINDINGS: Visualized lung bases demonstrate mild dependent atelectasis. The liver demonstrates normal size, contour and attenuation. The gallbladder is normal in appearance. Mild fatty atrophy of pancreas. Small inferior splenule. The adrenal glands are unremarkable. Symmetrically sized kidneys. A few small nonobstructing calculi are again noted within the left kidney, largest measuring approximately 4 mm. No right-sided renal calculi identified. There is no hydronephrosis of either kidney. Normal caliber loops of small and large bowel. Unremarkable anastomotic suture line within the mid right abdomen. Chronic mild diffuse mesenteric stranding again noted. Normal caliber abdominal aorta. No retroperitoneal lymphadenopathy. Bladder is decompressed but unremarkable. The prostate gland is normal in size. Small fat-containing left inguinal hernia. No inguinal lymphadenopathy. Mild to moderate degenerative changes of the spine. CT/CT abdomen pelvis wo IV con IMPRESSION: A few small nonobstructing calculi are again noted within the left kidney, largest measuring approximately 4 mm. There is no hydronephrosis of either kidney. Fleischner guidelines were followed.
[2022-09-04 08:27] VITALS: BP 150/63; PULSE 123; RESP 20; TEMP 36.7; O2SAT 99; BMI 33.6
[2022-09-04 08:52] LABS: Appearance Urine Clear; Color Urine Dark Yellow; Glucose Urine UA 100 mg/dL (Negative); Leukocyte Esterase Urine Small (1+) (Negative); Nitrite Urine Negative (Negative); Specific Gravity - Urine 1.025 (1.005-1.025); UMIC TRIGGER UACC YES; Urine Blood Negative (Negative); Urine Ketones 40 mg/dL (Negative); Urine Protein 30 (1+) mg/dL (Neg-Trace)
--- NOTE | 2022-09-04 09:02 | ED.BACK ---
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 No injury or trauma. Patient reports pain radiates to both legs. Patient also reports some urinary frequency and nausea. No vomiting, constipation, fevers, testicle pain. Patient reports yesterday had several episodes of diarrhea. Patient reports he had been taking chronic opiates but recently has been to clean [place] and was started on Suboxone 2 mg approximately 3 months ago. Patient reports he was taking this for chronic back pain. He has been doing well but he ran out of medication on Tuesday and has an appointment to see them on Tuesday. Patient reports he ran out of the medication because he felt good and he did not feel like he needed the medication any more for his symptoms. Related Data Home Medications Medication Instructions Recorded Confirmed aspirin 81 mg tablet,delayed 81 mg PO DAILY 08/12/20 06/03/22 release (Adult Low Dose Aspirin) atorvastatin 40 mg tablet 40 mg PO DAILY 08/12/20 06/03/22 hydralazine 100 mg tablet 100 mg PO TID 08/12/20 06/03/22 omeprazole 20 mg capsule,delayed 20 mg PO BID heartburn 08/12/20 06/03/22 release hydrochlorothiazide 25 mg tablet 25 mg PO DAILY 11/18/21 06/03/22 buprenorphine 2 mg-naloxone 0.5 mg 2 mg sublingual DAILY 12/11/21 06/03/22 sublingual film tramadol 50 mg tablet 1 tab PO BID PRN Pain, Mild 06/08/22 06/08/22 Previous Rx's Medication Instructions Recorded OneTouch Verio test strips (blood #300 ea 12/17/20 sugar diagnostic) pen needle, diabetic 32 gauge x #50 ea 12/17/20 (BD Theresa 2nd Gen Pen Needle) OneTouch Verio Meter #1 ea 01/15/21 (blood-glucose meter) insulin glargine 100 unit/mL (3 15 unit (0.15 mL) subcut QAM 90 04/22/21 mL) subcutaneous pen (Lantus days #15 mL Solostar U-100 Insulin) amlodipine 10 mg tablet 10 mg PO DAILY #30 tabs 10/21/21 acetaminophen 500 mg tablet 1,000 mg PO QID PRN fever or pain 10/25/21 (Tylenol Extra Strength) #5 tabs carvedilol 6.25 mg tablet (Coreg) 6.25 mg PO BID 90 days #180 tabs 11/18/21 pioglitazone 15 mg tablet 15 mg PO DAILY #90 tabs 02/10/22 acarbose 50 mg tablet 75 mg PO TID 90 days #405 tabs 04/05/22 metformin 500 mg tablet 500 mg PO DAILY #30 tabs 04/20/22 ibuprofen 600 mg tablet 600 mg PO Q6H PRN pain #30 tabs 06/08/22 oxycodone-acetaminophen 5 mg-325 1 tab PO Q4-6H PRN pain #30 tabs 06/08/22 mg tablet (Percocet) finasteride 5 mg tablet 5 mg PO DAILY 90 days #90 tabs 06/18/22 buprenorphine 2 mg-naloxone 0.5 mg 1 film buccal DAILY #1 ea 09/04/22 sublingual film (Suboxone) Allergies Allergy/AdvReac Type Severity Reaction Status Date / Time No Known Allergies Allergy Verified 07/26/22 15:35 Review of Systems Review of Systems: Yes all other systems are reviewed and are negative Constitutional: Constitutional: Reports no additional constitutional complaints, Denies body ache(s), Denies chills, Denies fever(s), Denies headache(s) and Denies weakness Eyes: Eyes: Reports no additional eye complaints and Denies change in vision ENT: Reports system reviewed and no additional complaints, except as documented, Denies dizziness, Denies headache(s), Denies nasal congestion, Denies nasal discharge and Denies neck pain Cardiovascular: Cardiovascular: Reports no additional cardiovascular complaints, Denies chest pain, Denies leg edema and Denies dyspnea Respiratory: Respiratory: Reports no additional respiratory complaints, Denies cough and Denies dyspnea Gastrointestinal: Gastrointestinal: Reports no additional gastrointestinal complaints, Denies abdominal pain, Reports diarrhea, Reports nausea and Denies vomiting Genitourinary: Genitourinary: Denies flank pain, Denies testicular pain, Reports urinary frequency, Denies urinary hesitancy, Denies urinary incontinence and Denies urinary urgency Musculoskeletal: Musculoskeletal: Reports no additional musculoskeletal complaints, Reports back pain, Denies arthralgias, Denies joint swelling, Denies neck pain, Denies numbness and Denies tingling Integumentary/Breasts: Skin/Breast: Reports system reviewed and no additional complaints, except as docu and Denies rash Neurologic: Reports system reviewed and no additional complaints, except as documented, Denies Abnormal speech present, Denies dizziness, Denies headache(s), Denies numbness, Denies tingling and Denies weakness PMFSH Past Medical History Attestation statement: The following information was validated with the patient. 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 Obesity (BMI 30-39.9) On beta lala at home Right inguinal hernia Spondylosis of lumbosacral spine with radiculopathy Surgical History Hx of colonoscopy Hx of cystoscopy Hx of esophagogastroduodenoscopy Hx of lithotripsy Hx of right hemicolectomy Hx of surgical procedure S/P placement of nerve stimulator Family History Family History Father Unknown family medical history Mother Unknown family medical history Social History Social History Alcohol intake: never Patient Tobacco Use Status: Never used Tobacco Smoked in Last 30 Days: No Second Hand Smoke Exposure: No Use of substances other than those prescribed or required for medical reasons: No Advance Directives: No Advance Directives Information Provided: No Advance Directives Date on File: 09/08/14 Physical Exam Vital Signs: Vital Signs: Last Vital Signs Temp 98.3 F 09/04/22 09:07 Pulse 103 H 09/04/22 09:07 Resp 16 09/04/22 09:07 BP 157/73 H 09/04/22 09:07 Pulse Ox 99 09/04/22 09:07 O2 Del Method 09/04/22 09:07 BMI result Body Mass Index 33.6 Const: General: cooperative, healthy appearing, comfortable and no acute distress Orientation/consciousness: patient oriented x3 Limitations: no limitations HEENT: Head: Yes normal to inspection Ears: hearing grossly normal bilaterally General nose exam: Normal external nose present Face and sinus: Yes normal facial exam Mouth: Normal oral and palatal mucosa present Throat: Yes posterior oropharynx normal Eyes: General: appearance normal, both eyes and all related structures Pupils: Equal, round and reactive pupils present Neck: Neck: Yes normal visual inspection Chest: Chest palpation & inspection: normal inspection of the chest Resp: Effort & Inspection: normal respiratory effort Auscultation: clear to auscultation bilaterally Cardio: Rate: regular rate Rhythm: regular rhythm Peripheral pulses: Peripheral pulses 2+ throughout GI: Inspection: Yes normal to inspection Palpation (GI): Soft to palpation and nontender Auscultation: normal bowel sounds : General: Yes no CVA tenderness Back/Spine/Pelvis: Other: Tenderness to the right lumbar soft tissue area. Pain worsened w/ right straight leg raise. Back: no CVA tenderness Thoracic/Lumbar Spine: thoracic and lumbar spine normal to inspection Skin: General skin exam: no rashes or lesions noted Neuro: General: patient oriented x3, moves all extremities, no focal motor deficits and normal sensation to monofilament Cranial nerves: Yes Equal, round and reactive pupils present Cognition (Neuro): normal cognition Speech: No Abnormal speech present Gait exam (Neuro): Normal gait present Motor exam (neuro): 5/5 motor strength present throughout Sensory Exam: Normal double simultaneous stimulation for sensation Extrem: General: Yes normal to inspection Course Course Course Narrative: Labs show mild hyperglycemia. Patient with underlying diabetes. No evidence of DKA. Patient can resume home medications. Urine negative for infection. CT shows no renal calculi or signs of pyelonephritis. Pain is likely secondary to underlying chronic back pain. Patient has had some nausea and diarrhea which is likely from him discontinue his Suboxone 3 days ago. Patient did run out of Suboxone has an appointment on Tuesday to see a provider at [facility]. Patient was dosed with Suboxone here in the emergency room. He will be given a prescription for his dose tomorrow. He can resume his normal doses on Tuesday when he sees the [facility] doctor. Recommend supplementing with Motrin or Tylenol home as needed. We did discuss that we should avoid opiates and patient and family was agreeable with this. Reviewed worrisome signs and symptoms and when to return to the emergency room. Comfortable plan for discharge home. Medications Administered Discontinued Medications Generic Name Dose Route Start Last Admin Trade Name Lisa PRN Reason Stop Dose Admin Buprenorphine/Naloxone 1 film 09/04/22 09:01 09/04/22 09:39 Buprenorphine/Naloxone 2/0.5mg Film SUBLINGUAL 09/04/22 09:02 1 film ONCE ONE Administration Ketorolac Tromethamine 30 mg 09/04/22 09:01 09/04/22 09:39 Ketorolac Tromethamine 30 Mg/Ml Vial IM 09/04/22 09:02 30 mg ONCE ONE Administration Medical Decision Making Medical Decision Making [facility] Narrative: 72-year-old male with a history of chronic back pain, renal colic who recently ran out of his Suboxone which she had been taking for chronic back pain presents with complaints of atraumatic right lower back pain since yesterday with nausea, urinary frequency and several episodes of diarrhea. On exam patient with no flaking tenderness. No abdominal tenderness. Patient does have tenderness over the soft tissue lumbar spine which is worsened with movement of the legs and flexion and extension of the lumbar spine. Normal neuro exam. No deficits or red flag symptoms. Likely musculoskeletal back pain. Patient has increased pain and diarrhea and nausea may be secondary to discontinuing his Suboxone on Tuesday. Does have history of renal colic so consider renal colic, pyelonephritis. Patient will have a UA and CT and labs. Patient will receive analgesia as well as dose of Suboxone while he is here in the emergency room. Differential Diagnosis Differential Diagnoses: The differential diagnosis associated with the presentation includes See MDM discussion Lab Data [facility] Lab Attestation statement: I reviewed the patient's lab results. 09/04/22 09:13 09/04/22 09:13 Labs: Lab Results 09/04/22 09/04/22 09/04/22 Range/Units 08:33 09:13 09:13 WBC 7.4 (4.8-10.8) X10*3/uL RBC 4.60 (4.60-5.80) X10*6/uL Hgb 12.9 L (14.0-18.0) g/dl Hct 38.7 L (42.0-52.0) % MCV 84.1 (80.0-98.0) fL MCH 28.0 (27.0-33.0) pg MCHC 33.3 (31.0-36.0) g/dl RDW 13.9 (11.0-16.0) % Plt Count 218 (160-400) X10*3/uL MPV 10.0 (9.4-12.4) fL Immature Gran % (Auto) 0.3 (0.0-0.4) % Neut % (Auto) 83.0 H (45-73) % Lymph % (Auto) 10.9 L (20-40) % [place] % (Auto) 5.5 (2-11) % Eos % (Auto) 0.0 (0-4) % Baso % (Auto) 0.3 (0-2) % Lymph # (Auto) 0.8 L (1.2-4.9) X10*3/uL [place] # (Auto) 0.4 (0.1-1.2) X10*3/uL Eos # (Auto) 0.0 (0.0-0.4) X10*3/uL Baso # (Auto) 0.0 (0.0-0.2) X10*3/uL Abs Immat Gran (auto) 0.02 (0.00-0.03) X10*3/uL Absolute Neuts (auto) 6.2 (2.0-8.3) x10*3/uL Absolute Nucleated RBC 0.000 (0.0-0.012) X10*3/uL Nucleated RBC % (auto) 0.0 (0.0-0.2) /100WBC Sodium 136 (135-145) mmol/L Potassium 4.0 (3.3-5.1) mmol/L Chloride 103 (96-108) mmol/L Carbon Dioxide 22 (22-29) mmol/L Anion Gap 15 (12-20) BUN 15 (9-16) mg/dL Creatinine 1.01 (0.5-1.4) mg/dL Estim Creat Clear Calc 75.7 Estimated GFR > 60 Random Glucose 242 H (60-115) mg/dL Calcium 9.3 (8.4-10.2) mg/dL Total Bilirubin 0.7 (0.0-1.0) mg/dL Direct Bilirubin 0.2 (0.0-0.5) mg/dL AST 19 (5-37) U/L ALT 18 (0-40) U/L Alkaline Phosphatase 58 (39-117) U/L Total Protein 6.9 (6.5-8.0) g/dL Albumin 4.1 (3.5-5.0) g/dL Urine Color Dark Yellow Urine Appearance Clear Urine pH 6.0 (5.0-9.0) Ur Specific [place] 1.025 (1.005-1.025) Urine Protein 30 (1+) H (Neg-Trace) mg/dL Urine Glucose (UA) 100 H (Negative) mg/dL Urine Ketones 40 (Negative) mg/dL Urine Blood Negative (Negative) Urine Nitrite Negative (Negative) Ur Leukocyte Esterase Small (1+) H (Negative) Urine RBC 0-2 (0-2) /HPF Urine WBC 0-5 (0-5) /HPF Ur Squamous Epith Cells 0-2 (0-2) /HPF Urine Bacteria None Seen (None Seen) Hyaline Casts 3-5 (0-2) /LPF Independent Interpretation I performed an independent interpretation of an: CT Scan Interpretation: I independently reviewed the CT scan which shows several kidney stones within the kidney on the left side. No right-sided renal calculi. No obstructive stone. Radiology Impression Discussion of test interpretation with radiology: I have reviewed the radiologist's reading. Radiologist Impression: FINDINGS: Visualized lung bases demonstrate mild dependent atelectasis. The liver demonstrates normal size, contour and attenuation. The gallbladder is normal in appearance. Mild fatty atrophy of pancreas. Small inferior splenule. The adrenal glands are unremarkable. Symmetrically sized kidneys. A few small nonobstructing calculi are again noted within the left kidney, largest measuring approximately 4 mm. No right-sided renal calculi identified. There is no hydronephrosis of either kidney. Normal caliber loops of small and large bowel. Unremarkable anastomotic suture line within the mid right abdomen. Chronic mild diffuse mesenteric stranding again noted. Normal caliber abdominal aorta. No retroperitoneal lymphadenopathy. Bladder is decompressed but unremarkable. The prostate gland is normal in size. Small fat-containing left inguinal hernia. No inguinal lymphadenopathy. Mild to moderate degenerative changes of the spine. CT/CT abdomen pelvis wo IV con IMPRESSION: A few small nonobstructing calculi are again noted within the left kidney, largest measuring approximately 4 mm. There is no hydronephrosis of either kidney. ? Fleischner guidelines were followed. Prescription Management I considered prescription management with: Pain Medication See course discussion Discharge Plan Discharge Clinical Impression: Chronic back pain Patient Disposition: Home, Self-Care Instructions: Chronic Back Pain (DC) Additional Instructions: Chong tomograf?a computarizada muestra c?lculos renales en el ri??n. Estos no est?n causando ni dolor. Es probable que chong dolor se deba a chong dolor de espalda cr?lalo. Recibi? yolande dosis de Suboxone mientras estabas aqu? en la satinder de emergencias. [place]amp[place] chong pr?xima dosis ma?yovanny. Seguimiento con borr?n y cuenta nueva el lunes seg?n lo programado. Your CT scan shows kidney stones with in the kidney. These are not causing or pain. Your pain is likely from your chronic back pain. He received Suboxone dose while you were here in the emergency room. Take your next dose tomorrow. Follow-up with sesar Winter Tuesday as scheduled. Prescriptions: New buprenorphine-naloxone [Suboxone] 2-0.5 mg film 1 film buccal DAILY Qty: 1 0RF Rx Instructions: place 1 strip/tab under (each) side of tongue No Action (DME) blood-glucose meter [OneTouch Verio Meter] Misc See Rx Instructions .ROUTE .MEDSUPPLY Qty: 1 0RF Rx Instructions: 3 times a day pioglitazone 15 mg tablet 15 mg PO DAILY Qty: 90 1RF acarbose 50 mg tablet 75 mg PO TID 90 Days Qty: 405 1RF metformin 500 mg tablet 500 mg PO DAILY Qty: 30 3RF acetaminophen [Tylenol Extra Strength] 500 mg tablet 1,000 mg PO QID PRN (Reason: fever or pain) Qty: 5 0RF tramadol 50 mg tablet 1 tab PO BID PRN (Reason: Pain, Mild) oxycodone-acetaminophen [Percocet] 5-325 mg tablet 1 tab PO Q4-6H PRN (Reason: pain) Qty: 30 0RF Rx Instructions: Partial Fill upon patient request. ibuprofen 600 mg tablet 600 mg PO Q6H PRN (Reason: pain) Qty: 30 0RF amlodipine 10 mg tablet 10 mg PO DAILY Qty: 30 0RF Lantus Solostar U-100 Insulin 100 unit/mL (3 mL) insulin pen 15 unit subcut QAM 90 Days Qty: 15 1RF atorvastatin 40 mg tablet 40 mg PO DAILY omeprazole 20 mg capsule,delayed release(DR/EC) 20 mg PO BID hydralazine 100 mg tablet 100 mg PO TID aspirin [Adult Low Dose Aspirin] 81 mg tablet,delayed release (DR/EC) 81 mg PO DAILY (DME) OneTouch Verio test strips Strip See Rx Instructions Not Applicable QID Qty: 300 2RF Rx Instructions: 3 times a day (DME) pen needle, diabetic [BD Theresa 2nd Gen Pen Needle] 32 gauge x 5/32 needle See Rx Instructions .MEDSUPPLY Qty: 50 4RF Rx Instructions: once a day buprenorphine-naloxone 2-0.5 mg film 2 mg sublingual DAILY finasteride 5 mg tablet 5 mg PO DAILY 90 Days Qty: 90 3RF hydrochlorothiazide 25 mg tablet 25 mg PO DAILY carvedilol [Coreg] 6.25 mg tablet 6.25 mg PO BID 90 Days Qty: 180 3RF Rx Instructions: must administer with a meal/food Referrals: Mahad Haddad MD [Primary Care Provider] - 10 days (as needed) Interventions: ED Discharge Assessment Last Done: 09/04/22 11:21 Discharge Date/Time: 09/04/22 11:21 Print Language: Indian
[2022-09-04 09:07] VITALS: BP 157/73; PULSE 103; RESP 16; TEMP 36.8; O2SAT 99
[2022-09-04 09:08] LABS: Bacteria Urine None Seen (None Seen); RBC Urine 0-2 /HPF (0-2); Squamous Epithelial Cell Urine 0-2 /HPF (0-2); UACC Culture Trigger YES; WBC Urine 0-5 /HPF (0-5)
[2022-09-04 09:17] LABS: MANUAL DIFF FLAG NO
[2022-09-04 09:21] LABS: Basophils Percent Auto 0.3 % (0-2); Hematocrit 38.7 % (42.0-52.0); Hemoglobin 12.9 g/dl (14.0-18.0); Imm Gran Abs Auto 0.02 X10*3/uL (0.00-0.03); Imm Gran Pct Auto 0.3 % (0.0-0.4); Lymphocytes Absolute Auto 0.8 X10*3/uL (1.2-4.9); Lymphocytes Percent Auto 10.9 % (20-40); Mean Corpuscular HGB Conc 33.3 g/dl (31.0-36.0); Mean Corpuscular Volume 84.1 fL (80.0-98.0); Monocytes Absolute Auto 0.4 X10*3/uL (0.1-1.2); Monocytes Percent Auto 5.5 % (2-11); Neutrophils Absolute Auto 6.2 x10*3/uL (2.0-8.3); Platelet Count 218 X10*3/uL (160-400); Red Cell Distribution Width 13.9 % (11.0-16.0); White Blood Count 7.4 X10*3/uL (4.8-10.8)
--- NOTE | 2022-09-04 09:22 | PC.NURSE ---
pt a&ox3, vs taken, pt tachycardic. Pt resting, will continue to monitor
[2022-09-04] MEDS: Ketorolac Tromethamine 30 MG/ML VIAL IM (09:39)
[2022-09-04] MEDS: Buprenorphine/Naloxone 2/0.5mg FILM 1 FILM SUBLINGUAL (09:39)
--- NOTE | 2022-09-04 09:40 | PC.NURSE ---
pt medicated for pain 05/17 back
[2022-09-04 09:42] LABS: Alanine Aminotransferase 18 U/L (0-40); Albumin Level 4.1 g/dL (3.5-5.0); Alkaline Phosphatase 58 U/L (39-117); Anion Gap 15 (12-20); Aspartate Amino Transferase 19 U/L (5-37); Bilirubin Direct 0.2 mg/dL (0.0-0.5); Bilirubin Total 0.7 mg/dL (0.0-1.0); Blood Urea Nitrogen 15 mg/dL (9-16); Calcium 9.3 mg/dL (8.4-10.2); Carbon Dioxide 22 mmol/L (22-29); Chloride 103 mmol/L (96-108); Creatinine Clr Calc Pharmacy 75.7; Estimated Glomerular Filt Rate > 60; Glucose Random 242 mg/dL (60-115); Sodium 136 mmol/L (135-145); Total Protein 6.9 g/dL (6.5-8.0)
== END 2022-09-04 11:21 | disposition home or self-care (01) ==
PROVIDERS: Nurse Practitioner Family; Emergency Provider Emergency Medicine; PCP Internal Medicine
DX: G89.29 Other chronic pain (principal); M54.50 Low back pain, unspecified; I10 Essential (primary) hypertension; E11.9 Type 2 diabetes mellitus without complications; F11.20 Opioid dependence, uncomplicated; E66.9 Obesity, unspecified; Z68.33 Body mass index [BMI] 33.0-33.9, adult; Z79.82 Long term (current) use of aspirin; Z79.02 Long term (current) use of antithrombotics/antiplatelets; Z79.899 Other long term (current) drug therapy; Z79.4 Long term (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
CPT/HCPCS: 36415; 74176; 80048; 80076; 81001; 85025; 87086; 96372; 99284; J1885

== ENCOUNTER → 2022-09-16 10:24 | Outpatient (BNVA) | payer MEDICARE, SELFPAY | PROVIDERS: PCP Internal Medicine; Visit Provider Anesthesiology | DX: M47.819 Spondylosis without myelopathy or radiculopathy, site unspecified (principal) | CPT/HCPCS: 99212 ==

== ENCOUNTER 2022-10-21 10:36 | Day surgery (SDC) | payer MEDICARE, SELFPAY ==
--- NOTE | ~2022-10-21 | FL_ITS ---
EXAMINATION: XR FLUOROSCOPY WITH IMAGES CLINICAL INFORMATION: Right L3, L4, and L5 medial branch radiofrequency block. COMPARISON: 11/26/2021 TECHNIQUE: Fluoroscopy Supervised By: Dr. Lalo Cooper. Fluoroscopy Time: 1.6 minutes. Cumulative Dose: 29.9 mGy-cm DAP: 8.15 uGy-cm2 Images: 1. FINDINGS: Right-sided probes are seen near the superior endplates of L4, L5, and S1. FL/FL guidance in OR IMPRESSION: Intraoperative fluoroscopy for pain management procedure.
[2022-10-21 10:49] VITALS: BMI 31.3
--- NOTE | 2022-10-21 11:09 | MHC.SHP ---
Pre-Procedural Eval Section A Date of Service: 10/21/22 The patient is an INPATIENT: No Changes since office visit: Yes Patient answered all questions The History & Physical has been completed within 30 days and I have reviewed it.: No Section B Chief Complaint: Spondylosis without myelopathy or radiculopathy, Details of Present Illness: as above Relevant Family History (Specify if Yes): No Relevant Social History: None Present Medications: see Short Stay Collaborative assessment Medical History: No relevant PMH History of Previous Operations: No relevant previous surgery Allergies: Allergies Allergy/AdvReac Type Severity Reaction Status Date / Time No Known Allergies Allergy Verified 09/16/22 11:06 Review of Systems Sugical H&P ROS: Negative: Constitution, Cardiovascular, Respiratory, Neurological, Psychiatric, Hem-Onc, Allergic/Immunologic, Gastrointestinal, Genitourinary, Musculoskeletal, Integumentary, Endocrine and Eyes/Ears/Nose/Throat Exam Surgical H&P Exam: Normal: HEENT, Normal: Heart, Normal: Lungs, Normal: Extremities, Normal: Abdomen, Normal: Skin and Normal: Neurological Plan Diagnosis/Plan: Unchanged I have reviewed the history and physical and performed a pertinent physical examination on my patient. No changes have occurred unless specified. Time Spent With Patient Time: Total time managing care of this patient today ____ minutes.
[2022-10-21 11:15] LABS: Glucose, Whole Blood 265 mg/dL (60-115)
[2022-10-21 12:30] VITALS: BP 161/66; PULSE 67; RESP 18; TEMP 36.7; O2SAT 97
--- NOTE | 2022-10-21 12:35 | P.BOP_ITS ---
Brief Operative Note Date of Service: 10/21/22 Pre-op diagnosis: spondylosis lumbar spine Post-op diagnosis: same Procedure: right sided RFA L3- L4- DRL5 Surgeon: Lalo Cooper MD Anesthesia: local Was an Scientific Helper used for this Procedure?: No Estimated blood loss (mL): 2 Condition: stable Disposition: PACU
--- NOTE | 2022-10-21 12:48 | W.PM.OPN ---
Operative Note Operative Note Date of Service: 10/21/22 Narrative: [id number] on the right. Informed consent was explained to the patient. All questions were explained and answered. The patient was taken inside the operating room where he was positioned prone on the operating table. Patient was not sedated, he was wide awake and? able to answer the questions and respond to the commands. Time-out was performed delineating name and of the patient,? correct site and side ( the procedure was planned to be bilateral), the nature of the procedure, patient's allergy, preoperative antibiotic if needed. All operating room staff was participating in OR time-out procedure. The lower back was prepped with ChloraPrep and draped with sterile towels. C-arm was brought over the operating field and sq picture of L4, L5 vertebra and S1 AREA were delineated on the screen. Point of interest were delineated as connection of superior articular process of L4, L5 vertebra on the right with corresponding transverse processes as well as connection of the sacral alae on the right with superior articular process of S1 1st on the right ?The projection of the point of interest to the skin were injected with the small amount of local anesthetic lidocaine 2% 1-1.5 cc. After that 18 gauge 100 mm RFA canulas? were driven to the point of interest in oblique fashion. After needles gently contacted the bone the sensory test was performed, patient reported pressure? sensation on sensory test.? After that motor tests were performed and no motor response was detected in the patients feet lower legs or thighs. After that? at the point of interests the cannulas? were injected with small amount of ropivacaine 0.5% mixed with lidocaine 1%-1cc? and also mixed with very small amount of Kenalog. 90 seconds after the injection the energy application was performed at 89 degrees Centigrade for 90 second. After first energy application the canullas were rotated 180 degrees and energy application was repeated at the same setting. . Upon completion of the energy applications canullas were removed and sterile bandaids? were applied, At this moment the patient started to complain on severe discomfort on canullas insertions, he insisted that we would stop the procedure. The patient will be rescheduled for the left side in one week. The? patient was taken outside of the operating room to recovery room where he recovered uneventfully.
== END 2022-10-21 13:11 | disposition home or self-care (01) ==
PROVIDERS: PCP Internal Medicine; Visit Provider Anesthesiology
PROC: (CPT 64635; principal; 2022-10-21 11:30)
DX: M47.816 Spondylosis without myelopathy or radiculopathy, lumbar region (principal); G89.4 Chronic pain syndrome; G89.18 Other acute postprocedural pain; M51.36 Other intervertebral disc degeneration, lumbar region; I10 Essential (primary) hypertension; K21.9 Gastro-esophageal reflux disease without esophagitis; E66.9 Obesity, unspecified; Z68.34 Body mass index [BMI] 34.0-34.9, adult; E11.42 Type 2 diabetes mellitus with diabetic polyneuropathy; Z79.4 Long term (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; Z79.82 Long term (current) use of aspirin; Z79.1 Long term (current) use of non-steroidal anti-inflammatories (NSAID); Z79.899 Other long term (current) drug therapy; Z90.49 Acquired absence of other specified parts of digestive tract; Z87.442 Personal history of urinary calculi
CPT/HCPCS: 64635; 64636; 82947; J2795; J3301

== ENCOUNTER → 2022-11-11 10:19 | Outpatient (BNVA) | payer MEDICARE, SELFPAY | PROVIDERS: PCP Internal Medicine; Visit Provider Surgery | DX: R10.31 Right lower quadrant pain (principal) | CPT/HCPCS: 99212 ==

== ENCOUNTER → 2022-11-24 10:39 | Outpatient (BNVA) | payer MEDICARE, SELFPAY | PROVIDERS: PCP Internal Medicine; Visit Provider Anesthesiology | DX: M47.816 Spondylosis without myelopathy or radiculopathy, lumbar region (principal) | CPT/HCPCS: 99212 ==

== ENCOUNTER 2022-12-23 06:42 | Outpatient (REF) | payer MEDICARE, SELFPAY ==
--- NOTE | ~2022-12-23 | XR_ITS ---
EXAMINATION: Bilateral knee x-ray CLINICAL INFORMATION: Pain COMPARISON: Previous x-ray from 2021 TECHNIQUE: 3 views of each knee FINDINGS: Right: Bone alignment is normal. No fracture or dislocation. Degenerative meniscal calcification. The joint space narrowing at the medial femoral tibial joint. Small osteophytes at the patellofemoral joint. Small joint effusion. Atherosclerotic disease. Left: Bone alignment is normal. No fracture or dislocation. Medial degenerative meniscal calcification. Medial femoral tibial joint space narrowing. Small osteophytes at the patellofemoral joint. Small joint effusion. Atherosclerotic disease. XR/XR knee LT 2V IMPRESSION: Mild degenerative changes, right greater than left.
--- NOTE | ~2022-12-23 | XR_ITS ---
EXAMINATION: Bilateral knee x-ray CLINICAL INFORMATION: Pain COMPARISON: Previous x-ray from 2021 TECHNIQUE: 3 views of each knee FINDINGS: Right: Bone alignment is normal. No fracture or dislocation. Degenerative meniscal calcification. The joint space narrowing at the medial femoral tibial joint. Small osteophytes at the patellofemoral joint. Small joint effusion. Atherosclerotic disease. Left: Bone alignment is normal. No fracture or dislocation. Medial degenerative meniscal calcification. Medial femoral tibial joint space narrowing. Small osteophytes at the patellofemoral joint. Small joint effusion. Atherosclerotic disease. XR/XR knee RT 2V IMPRESSION: Mild degenerative changes, right greater than left.
--- NOTE | ~2022-12-23 | XR_ITS ---
EXAMINATION: Bilateral knee x-ray CLINICAL INFORMATION: Pain COMPARISON: Previous x-ray from 2021 TECHNIQUE: 3 views of each knee FINDINGS: Right: Bone alignment is normal. No fracture or dislocation. Degenerative meniscal calcification. The joint space narrowing at the medial femoral tibial joint. Small osteophytes at the patellofemoral joint. Small joint effusion. Atherosclerotic disease. Left: Bone alignment is normal. No fracture or dislocation. Medial degenerative meniscal calcification. Medial femoral tibial joint space narrowing. Small osteophytes at the patellofemoral joint. Small joint effusion. Atherosclerotic disease. XR/XR knee standing BI IMPRESSION: Mild degenerative changes, right greater than left.
== END 2022-12-23 06:43 | disposition home or self-care (01) ==
LOC: HO.HOSX 06:42
PROVIDERS: Visit Provider Physician Assistant
DX: M17.0 Bilateral primary osteoarthritis of knee (principal)
CPT/HCPCS: 73560; 73565; 99202

== ENCOUNTER 2023-01-17 10:13 | Outpatient (REF) | payer MEDICARE, SELFPAY ==
[2023-01-17 11:41] LABS: Anion Gap 10 (12-20); Blood Urea Nitrogen 17 mg/dL (9-16); Carbon Dioxide 25 mmol/L (22-29); Chloride 107 mmol/L (96-108); Estimated Glomerular Filt Rate > 60; Potassium 4.4 mmol/L (3.3-5.1); Sodium 138 mmol/L (135-145)
[2023-01-17 13:02] LABS: Protein/Creatinine Ratio, Ur 0.06 (<0.2); Total Protein Urine Random 32 mg/dL (<12)
== END 2023-01-17 10:14 | disposition home or self-care (01) ==
LOC: HO.LAB 10:13
PROVIDERS: PCP Internal Medicine; Visit Provider Internal Medicine Nephrology
DX: I10 Essential (primary) hypertension (principal)
CPT/HCPCS: 36415; 80051; 82310; 82565; 84156; 84520

== ENCOUNTER 2023-01-20 11:33 | Outpatient (REF) | payer MEDICARE, SELFPAY ==
[2023-01-20 11:38] LABS: MANUAL DIFF FLAG NO
[2023-01-20 11:56] LABS: Basophils Percent Auto 0.7 % (0-2); Eosinophils Absolute Auto 0.3 X10*3/uL (0.0-0.4); Eosinophils Percent Auto 5.9 % (0-4); Hematocrit 36.4 % (42.0-52.0); Hemoglobin 11.6 g/dl (14.0-18.0); Imm Gran Abs Auto 0.01 X10*3/uL (0.00-0.03); Imm Gran Pct Auto 0.2 % (0.0-0.4); Lymphocytes Absolute Auto 1.7 X10*3/uL (1.2-4.9); Lymphocytes Percent Auto 29.9 % (20-40); Mean Corpuscular HGB Conc 31.9 g/dl (31.0-36.0); Mean Corpuscular Hemoglobin 28.3 pg (27.0-33.0); Mean Corpuscular Volume 88.8 fL (80.0-98.0); Mean Platelet Volume 11.1 fL (9.4-12.4); Monocytes Absolute Auto 0.5 X10*3/uL (0.1-1.2); Monocytes Percent Auto 9.3 % (2-11); Neutrophils Absolute Auto 3.1 x10*3/uL (2.0-8.3); Platelet Count 218 X10*3/uL (160-400); Red Cell Distribution Width 14.6 % (11.0-16.0); White Blood Count 5.8 X10*3/uL (4.8-10.8)
[2023-01-20 11:57] LABS: Appearance Urine Clear; Color Urine Yellow; Glucose Urine UA Negative (Negative); Leukocyte Esterase Urine Negative (Negative); Nitrite Urine Negative (Negative); Urine Blood Negative (Negative); Urine Ketones Negative (Negative); Urine Protein Negative (Neg-Trace)
[2023-01-20 12:03] LABS: Bacteria Urine None Seen (None Seen); Hyaline Casts Urine 0-2 /LPF (0-2); RBC Urine 0-2 /HPF (0-2); Squamous Epithelial Cell Urine 0-2 /HPF (0-2); WBC Urine 0-5 /HPF (0-5)
[2023-01-20 12:09] LABS: Estimated Average Glucose 174 mg/dL; Hemoglobin A1c % 7.7 %
[2023-01-20 12:24] LABS: Creatinine Urine 35.59 mg/dL; Microalbumin Urine < 5.0 mg/L
[2023-01-20 12:34] LABS: Alanine Aminotransferase 19 U/L (0-40); Alkaline Phosphatase 55 U/L (39-117); Anion Gap 12 (12-20); Aspartate Amino Transferase 22 U/L (5-37); Bilirubin Total 0.5 mg/dL (0.0-1.0); Blood Urea Nitrogen 14 mg/dL (9-16); Calcium 8.9 mg/dL (8.4-10.2); Carbon Dioxide 28 mmol/L (22-29); Chloride 105 mmol/L (96-108); Cholesterol 125 mg/dL; Estimated Glomerular Filt Rate > 60; Glucose Fasting 96 mg/dL (60-99); HDL Cholesterol 57 mg/dL; LDL Cholesterol Calculated 58 mg/dl; Potassium 4.1 mmol/L (3.3-5.1); Sodium 141 mmol/L (135-145); Triglycerides 52 mg/dL
[2023-01-20 12:48] LABS: PSA,Total (Free>4and<10) 0.58 ng/mL (0.00-4.00)
== END 2023-01-20 11:34 | disposition home or self-care (01) ==
LOC: HO.LNP 11:33
PROVIDERS: Visit Provider Internal Medicine
DX: Z00.00 Encounter for general adult medical examination without abnormal findings (principal); Z12.5 Encounter for screening for malignant neoplasm of prostate; E11.9 Type 2 diabetes mellitus without complications; I10 Essential (primary) hypertension; E78.00 Pure hypercholesterolemia, unspecified; N40.0 Benign prostatic hyperplasia without lower urinary tract symptoms
CPT/HCPCS: 80053; 80061; 81001; 82043; 83036; 84153; 85025

== ENCOUNTER 2023-04-18 07:34 | Emergency (ER) | payer MEDICARE, SELFPAY ==
--- NOTE | ~2023-04-18 | XR_ITS ---
EXAMINATION: XR CHEST CLINICAL INFORMATION: Shortness of breath. COMPARISON: 10/25/2021 TECHNIQUE: Frontal view of the chest was obtained. FINDINGS: The lungs are moderately expanded. Left hemidiaphragm remains elevated. No focal consolidation. No pleural effusion. Cardiac silhouette is unchanged. XR/XR chest 1V IMPRESSION: No acute abnormality.
--- NOTE | 2023-04-18 07:36 | ECG_ITS ---
Test Reason : chest pain Blood Pressure : / mmHG Vent. Rate : 092 BPM Atrial Rate : 092 BPM P-R Int : 138 ms QRS Dur : 092 ms QT Int : 374 ms P-R-T Axes : 033 002 137 degrees QTc Int : 462 ms Normal sinus rhythm Nonspecific ST and T wave abnormality Prolonged QT Abnormal ECG When compared with ECG of 25-OCT-2021 09:44, No significant change was found Referred By: Generic ED Physician Electronically Signed By:BRANDEE GARCIA
[2023-04-18 07:41] VITALS: BP 125/74; PULSE 90; RESP 18; TEMP 36.7; O2SAT 98; BMI 32.9
[2023-04-18 07:56] LABS: MANUAL DIFF FLAG NO
[2023-04-18 07:58] LABS: Basophils Percent Auto 0.5 % (0-2); Eosinophils Absolute Auto 0.1 X10*3/uL (0.0-0.4); Eosinophils Percent Auto 1.3 % (0-4); Hematocrit 36.6 % (42.0-52.0); Hemoglobin 11.8 g/dl (14.0-18.0); Imm Gran Abs Auto 0.01 X10*3/uL (0.00-0.03); Imm Gran Pct Auto 0.2 % (0.0-0.4); Lymphocytes Absolute Auto 1.5 X10*3/uL (1.2-4.9); Lymphocytes Percent Auto 24.7 % (20-40); Mean Corpuscular HGB Conc 32.2 g/dl (31.0-36.0); Mean Corpuscular Hemoglobin 28.2 pg (27.0-33.0); Mean Corpuscular Volume 87.6 fL (80.0-98.0); Monocytes Absolute Auto 0.5 X10*3/uL (0.1-1.2); Monocytes Percent Auto 7.5 % (2-11); Neutrophils Absolute Auto 4.1 x10*3/uL (2.0-8.3); Neutrophils Percent Auto 65.8 % (45-73); Platelet Count 225 X10*3/uL (160-400); Red Blood Count 4.18 X10*6/uL (4.60-5.80); Red Cell Distribution Width 14.4 % (11.0-16.0); White Blood Count 6.2 X10*3/uL (4.8-10.8)
--- NOTE | 2023-04-18 08:05 | ED_ITS ---
HPI - General Adult General Chief complaint: General Medical Stated complaint: chest pain Time Seen by Provider: 04/18/23 07:59 Source: patient, RN notes reviewed and old records reviewed Mode of arrival: ambulatory History of Present Illness HPI narrative: 72-year-old male with a past medical history of diabetes, GERD, HTN, SBO, presenting to the ED complaining left-sided chest pain and SOB x 5 days. Reports chest pain worse with movement, cough, and palpation. Denies fever, cough, pedal edema, calf pain, recent travel, sick contacts, abdominal pain, nausea/vomiting Onset (ago): day(s) Related Data Home Medications Medication Instructions Recorded Confirmed aspirin 81 mg tablet,delayed 81 mg PO DAILY 08/12/20 11/11/22 release (Adult Low Dose Aspirin) atorvastatin 40 mg tablet 40 mg PO DAILY 08/12/20 11/11/22 hydralazine 100 mg tablet 100 mg PO TID 08/12/20 11/11/22 omeprazole 20 mg capsule,delayed 20 mg PO BID heartburn 08/12/20 11/11/22 release hydrochlorothiazide 25 mg tablet 25 mg PO DAILY 11/18/21 11/11/22 lifitegrast 5 % eye drops in a 1 drp ophthalmic (eye) BID 12/23/22 dropperette (Xiidra) losartan 50 mg tablet 50 mg PO DAILY 12/23/22 Previous Rx's Medication Instructions Recorded OneTouch Verio test strips (blood #300 ea 12/17/20 sugar diagnostic) pen needle, diabetic 32 gauge x #50 ea 12/17/20 5/32 (BD Theresa 2nd Gen Pen Needle) OneTouch Verio Meter #1 ea 01/15/21 (blood-glucose meter) insulin glargine 100 unit/mL (3 15 unit (0.15 mL) subcut QAM 90 04/22/21 mL) subcutaneous pen (Lant days #15 mL Solostar U-100 Insulin) pioglitazone 15 mg tablet 15 mg PO DAILY #90 tabs 02/10/22 acarbose 50 mg tablet 75 mg (1.5 x 50 mg) PO TID 90 days 04/05/22 #405 tabs metformin 500 mg tablet 500 mg PO DAILY #30 tabs 04/20/22 finasteride 5 mg tablet 5 mg PO DAILY 90 days #90 tabs 06/18/22 buprenorphine 2 mg-naloxone 0.5 mg 1 film buccal DAILY #1 ea 09/04/22 sublingual film (Suboxone) tizanidine 2 mg tablet 2 mg PO TID PRN muscle spasticity 11/24/22 30 days #90 tabs carvedilol 6.25 mg tablet (Coreg) 6.25 mg PO BID 90 days #180 tabs 12/20/22 celecoxib 200 mg capsule (Celebrex) 200 mg PO BID 30 days #60 caps 12/23/22 tamsulosin 0.4 mg capsule 0.8 mg (2 x 0.4 mg) PO DAILY 90 04/12/23 days #180 caps Allergies Allergy/AdvReac Type Severity Reaction Status Date / Time No Known Allergies Allergy Verified 12/23/22 08:55 Review of Systems 2 Review of Systems: Constitutional: No Fever, No Chills, No Fatigue, No Malaise ENT/Mouth: No Hearing loss, No Ear Pain, No Nasal Congestion, No sore throat, No Rhinorrhea, No Swallowing Difficulty Eyes: No Eye Pain, No Swelling, No Vision Changes Cardiovascular: + Chest Pain, + SOB, No Dyspnea on Exertion, No Orthopnea, No Edema, No Palpitations Respiratory: No Cough, No Sputum, No Wheezing, No Dyspnea Gastrointestinal: No Nausea, No Vomiting, No Diarrhea, No Constipation, No Abdominal pain, Genitourinary: No irregular bleeding, No Dysuria, No Urinary Frequency, No Hematuria, No Urinary Flow Changes, No Hesitancy Musculoskeletal: No joint pain, No Myalgias, No Joint Swelling Skin: No Skin Lesions, No rash Neuro: No Weakness, No Numbness, No Paresthesias, NNo Dizziness, No Headache Yes all other systems are reviewed and are negative Constitutional: Constitutional: Reports as per [facility] Past Medical History Attestation statement: The following information was validated with the patient. 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 Surgical History S/P placement of nerve stimulator Hx of surgical procedure Hx of cystoscopy Hx of lithotripsy Hx of right hemicolectomy Hx of colonoscopy Hx of esophagogastroduodenoscopy Family History Family History Father Unknown family medical history Mother Unknown family medical history Social History Social History Alcohol intake: never Patient Tobacco Use Status: Never used Tobacco Second Hand Smoke Exposure: No Advance Directives: Yes Advance Directives on File: Yes Advance Directives Date on File: 09/08/14 Current occupational status: disabled 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/ Physical Exam ED Vital Signs: Vital Signs - 24 hr 04/18/23 07:41 04/18/23 08:26 04/18/23 10:46 Temperature 98.1 F Pulse Rate 90 67 59 Respiratory Rate 18 16 16 Blood Pressure 125/74 177/67 H 164/66 H Pulse Oximetry 98 95 98 Oxygen Delivery Method Room Air Room Air Room Air BMI result Body Mass Index 32.9 Const General: cooperative, healthy appearing and no acute distress Orientation/consciousness: patient oriented x3 Limitations: no limitations HENMT Head: Yes normal to inspection and Yes atraumatic Ears: hearing grossly normal bilaterally General nose exam: Normal external nose present Face and sinus: Yes normal facial exam Eyes General: appearance normal, both eyes and all related structures EOM: EOMs intact bilaterally Neck Neck: Yes normal visual inspection and Yes no meningeal signs Chest Chest palpation & inspection: normal inspection of the chest, no crepitus and no tenderness Resp Effort & Inspection: normal respiratory effort and no respiratory distress Auscultation: clear to auscultation bilaterally, no rhonchi and no wheezes Cardio Rate: regular rate Heart sounds: S1 normal heart sound present and S2 normal heart sound present GI Inspection: Yes normal to inspection Palpation (GI): Soft to palpation, nontender, no guarding and not rigid General: Yes no CVA tenderness Back/Spine/Pelvis Back: no CVA tenderness Skin Rashes: no rashes Wounds: no wounds Neuro General: patient oriented x3, tone normal and no meningeal signs Cranial nerves: Yes CN's II-XII intact bilaterally Gait exam (Neuro): Normal gait present Extrem General: Yes normal to inspection, Yes no pedal edema and Yes no calf tenderness Course Course Course Narrative: -0941--labs reassuring, troponin negative, D-dimer WNL > PE unlikely -1123--repeat troponin equivocal, mi unlikely XR chest 1V IMPRESSION: No acute abnormality. 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 They verbalized understanding and feel safe for discharge at this time. Medications Administered Discontinued Medications Generic Name Dose Route Start Last Admin Trade Name Freq PRN Reason Stop Dose Admin Ketorolac Tromethamine 30 mg 04/18/23 10:14 04/18/23 10:21 Ketorolac Tromethamine 30 Mg/Ml Vial IM 04/18/23 10:15 30 mg ONCE ONE Administration Medical Decision Making Medical Decision Making [facility] Narrative: 72-year-old male with a past medical history of diabetes, GERD, HTN, SBO, presenting to the ED complaining left-sided chest pain and SOB x 5 days. On exam vital signs stable, NAD, nontoxic appearing, CP not reproducible, no chest wall deformity, lungs CTA, no pedal edema. No CVAT. Concern for ACS vs PE vs PNA. Lower suspicion for renal stone/pyelo, pancreatitis, cholecystitis/lithiasis or DVT Plan: EKG, labs, CXR, IV Toradol, reassess Please refer to course for remaining clinical decision making, interpretation of labs/imaging results, and discussions with consultants and/or family members. Differential Diagnosis Differential Diagnoses: The differential diagnosis associated with the presentation includes As above Admission/Observation Consideration of admission/observation: Escalation of care including admission/observation considered Lab Data [facility] Lab Attestation statement: I reviewed the patient's lab results. 04/18/23 07:53 04/18/23 07:53 Labs: Lab Results 04/18/23 04/18/23 04/18/23 Range/Units 07:53 08:30 10:49 WBC 6.2 (4.8-10.8) X10*3/uL RBC 4.18 L (4.60-5.80) X10*6/uL Hgb 11.8 L (14.0-18.0) g/dl Hct 36.6 L (42.0-52.0) % MCV 87.6 (80.0-98.0) fL MCH 28.2 (27.0-33.0) pg MCHC 32.2 (31.0-36.0) g/dl RDW 14.4 (11.0-16.0) % Plt Count 225 (160-400) X10*3/uL MPV 10.0 (9.4-12.4) fL Immature Gran % (Auto) 0.2 (0.0-0.4) % Neut % (Auto) 65.8 (45-73) % Lymph % (Auto) 24.7 (20-40) % [place] % (Auto) 7.5 (2-11) % Eos % (Auto) 1.3 (0-4) % Baso % (Auto) 0.5 (0-2) % Lymph # (Auto) 1.5 (1.2-4.9) X10*3/uL [place] # (Auto) 0.5 (0.1-1.2) X10*3/uL Eos # (Auto) 0.1 (0.0-0.4) X10*3/uL Baso # (Auto) 0.0 (0.0-0.2) X10*3/uL Abs Immat Gran (auto) 0.01 (0.00-0.03) X10*3/uL Absolute Neuts (auto) 4.1 (2.0-8.3) x10*3/uL Absolute Nucleated RBC 0.000 (0.0-0.012) X10*3/uL Nucleated RBC % (auto) 0.0 (0.0-0.2) /100WBC D-Dimer High Sensitivty < 150 NG/ML Sodium 141 (135-145) mmol/L Potassium 4.3 (3.3-5.1) mmol/L Chloride 107 (96-108) mmol/L Carbon Dioxide 27 (22-29) mmol/L Anion Gap 11 L (12-20) BUN 16 (9-16) mg/dL Creatinine 0.82 (0.5-1.4) mg/dL Estim Creat Clear Calc 92.1 Estimated GFR > 60 Random Glucose 168 H (60-115) mg/dL Calcium 9.6 D (8.4-10.2) mg/dL Total Bilirubin 0.5 (0.0-1.0) mg/dL AST 20 (5-37) U/L ALT 15 (0-40) U/L Alkaline Phosphatase 52 (39-117) U/L Troponin I High Sens < 2.7 < 2.7 (<3.5-35.0) ng/L Total Protein 7.1 (6.5-8.0) g/dL Albumin 4.1 (3.5-5.0) g/dL Lipase 15 (8-78) U/L COVID-19 ([facility]) Negative (Negative) COVID-19 Clin Com See Note Independent Interpretation I performed an independent interpretation of an: EKG (EKG normal sinus rhythm at a rate of 92. Prolonged QT. QRS 92. No significant change when compared to prior. No STEMI) Radiology Impression Discussion of test interpretation with radiology: I have reviewed the radiologist's reading. Independent Historian Clinical information obtained from an independent historian. History obtained from or confirmed by: Spouse External Record Review External record reviewed: Inpatient record, Office record, Outpatient record, Prior outpatient labs, Prior outpatient radiology, Primary care record and Outside ED record Tests considered The following testing was considered but not selected: As above Prescription Management I considered prescription management with: Pain Medication Chronic Conditions Patient?s care impacted by: Diabetes Discharge Plan Discharge Clinical Impression: Atypical chest pain Patient Disposition: Home, Self-Care Instructions: Noncardiac Chest Pain (ED) Additional Instructions: Your blood work and chest x-ray were reassuring It is very important for you to follow-up with her primary care doctor as well as Cardiology If symptoms persist or worsen, constant worsening chest pain, shortness of breath, or fever return to the ED Tu an?lisis de desire y tu radiograf?a de t?rax fueron tranquilizadores. Es muy importante que usted ava un seguimiento con calixto m?dico de atenci?n primaria as? laurie con Cardiolog?a. Si los s?ntomas persisten o empeoran, el dolor en el pecho, la dificultad para respirar o la fiebre que empeoran constantemente regresan al servicio de urgencias. Prescriptions: No Action (DME) blood-glucose meter [OneTouch Verio Meter] [facility] [place] See Rx Instructions .ROUTE .MEDSUPPLY Qty: 1 0RF Rx Instructions: 3 times a day pioglitazone 15 mg tablet 15 mg PO DAILY Qty: 90 1RF acarbose 50 mg tablet 75 mg PO TID 90 Days Qty: 405 1RF metformin 500 mg tablet 500 mg PO DAILY Qty: 30 3RF carvedilol [Coreg] 6.25 mg tablet 6.25 mg PO BID 90 Days Qty: 180 3RF Rx Instructions: must administer with a meal/food tamsulosin 0.4 mg capsule 0.8 mg PO DAILY 90 Days Qty: 180 1RF buprenorphine-naloxone [Suboxone] 2-0.5 mg film 1 film buccal DAILY Qty: 1 0RF Rx Instructions: place 1 strip/tab under (each) side of tongue Lantus Solostar U-100 Insulin 100 unit/mL (3 mL) insulin pen 15 unit subcut QAM 90 Days Qty: 15 1RF atorvastatin 40 mg tablet 40 mg PO DAILY omeprazole 20 mg capsule,delayed release(DR/EC) 20 mg PO BID hydralazine 100 mg tablet 100 mg PO TID aspirin [Adult Low Dose Aspirin] 81 mg tablet,delayed release (DR/EC) 81 mg PO DAILY (DME) OneTouch Verio test strips Strip See Rx Instructions Not Applicable QID Qty: 300 2RF Rx Instructions: 3 times a day (DME) pen needle, diabetic [BD Theresa 2nd Gen Pen Needle] 32 gauge x 5/32 needle See Rx Instructions .MEDSUPPLY Qty: 50 4RF Rx Instructions: once a day finasteride 5 mg tablet 5 mg PO DAILY 90 Days Qty: 90 3RF tizanidine 2 mg tablet 2 mg PO TID PRN (Reason: muscle spasticity) 30 Days Qty: 90 6RF hydrochlorothiazide 25 mg tablet 25 mg PO DAILY losartan 50 mg tablet 50 mg PO DAILY Xiidra 5 % dropperette 1 drp ophthalmic (eye) BID celecoxib [Celebrex] 200 mg capsule 200 mg PO BID 30 Days Qty: 60 3RF Referrals: [facility] [place] Cardiovascular Services [Provider Group] - 1 week Mahad Haddad MD [Primary Care Provider] - 3 days Print Language: Amharic
[2023-04-18 08:16] LABS: Alanine Aminotransferase 15 U/L (0-40); Albumin Level 4.1 g/dL (3.5-5.0); Alkaline Phosphatase 52 U/L (39-117); Anion Gap 11 (12-20); Aspartate Amino Transferase 20 U/L (5-37); Bilirubin Total 0.5 mg/dL (0.0-1.0); Blood Urea Nitrogen 16 mg/dL (9-16); Calcium 9.6 mg/dL (8.4-10.2); Carbon Dioxide 27 mmol/L (22-29); Chloride 107 mmol/L (96-108); Creatinine Clr Calc Pharmacy 92.1; Estimated Glomerular Filt Rate > 60; Glucose Random 168 mg/dL (60-115); Potassium 4.3 mmol/L (3.3-5.1); Sodium 141 mmol/L (135-145); Total Protein 7.1 g/dL (6.5-8.0)
[2023-04-18 08:26] VITALS: BP 177/67; PULSE 67; RESP 16; O2SAT 95
[2023-04-18 08:26] LABS: Troponin-I High Sensitivity < 2.7 ng/L (<3.5-35.0)
[2023-04-18 08:38] LABS: Lipase 15 U/L (8-78)
[2023-04-18 08:48] LABS: D Dimer High Sensitivity < 150 NG/ML
[2023-04-18] MEDS: Ketorolac Tromethamine 30 MG/ML VIAL IM (10:21)
[2023-04-18 10:46] VITALS: BP 164/66; PULSE 59; RESP 16; O2SAT 98
[2023-04-18 11:18] LABS: Troponin-I High Sensitivity < 2.7 ng/L (<3.5-35.0)
[2023-04-18 11:39] LABS: COVID-19 Test Negative (Negative); IDNOW Serial# 08D9AD1C
== END 2023-04-18 12:49 | disposition home or self-care (01) ==
PROVIDERS: Physician Assistant; Emergency Provider Student in an Organized Health Care Education/Training Program; PCP Internal Medicine
DX: R07.89 Other chest pain (principal); R06.02 Shortness of breath; R05.9 Cough, unspecified; Z20.822 Contact with and (suspected) exposure to COVID-19; Z20.828 Contact with and (suspected) exposure to other viral communicable diseases; Z79.899 Other long term (current) drug therapy
CPT/HCPCS: 36415; 71045; 80053; 83690; 84484; 85025; 85379; 87635; 93005; 96372; 99284; J1885

== ENCOUNTER 2023-04-21 12:38 | Outpatient (AMB) | payer MEDICARE, SELFPAY ==
[2023-04-21 12:54] VITALS: BP 150/72; PULSE 83; BMI 33.9
--- NOTE | 2023-04-21 12:54 | A.OFFVIS_ITS ---
Intake Vital Signs 04/21/23 12:54 Height 5 ft 7 in Weight 216 lb 7.903 oz BMI 33.9 BP 150/72 H Blood Pressure Location Lt brachial Position Sitting Pulse 83 Intake Visit Reasons: 1 year follow up Intake Note: 1 year f/u Casting Chipper Required: Yes Casting Chipper Name: nan dodge [id number] Allergies No Known Allergies Allergy (Verified 04/21/23 12:59) Medication List - Last Reconciled 04/21/23 by CARLOS Finnegan acarbose 75 mg (1.5 x 50 mg) PO TID 90 days aspirin (Adult Low Dose Aspirin) 81 mg PO DAILY atorvastatin 40 mg PO DAILY buprenorphine-naloxone 2-0.5 mg (Suboxone) 1 film buccal DAILY carvedilol (Coreg) 6.25 mg PO BID 90 days celecoxib (Celebrex) 200 mg PO BID 30 days finasteride 5 mg PO DAILY 90 days hydralazine 100 mg PO TID hydrochlorothiazide 25 mg PO DAILY insulin glargine (Lantus Solostar U-100 Insulin) 15 units (0.15 mL) subcut QAM 90 days ketorolac 10 mg PO TID PRN 5 days lifitegrast 5% (Xiidra) 1 drp ophthalmic (eye) BID losartan 50 mg PO DAILY metformin 500 mg PO DAILY omeprazole 20 mg PO BID OneTouch Verio Meter (blood-glucose meter) 3 times a day NS OneTouch Verio test strips (blood sugar diagnostic) 3 times a day NS pen needle, diabetic (BD Theresa 2nd Gen Pen Needle) once a day pioglitazone 15 mg PO DAILY tamsulosin 0.8 mg (2 x 0.4 mg) PO DAILY 90 days tizanidine 2 mg PO TID PRN 30 days HPI 1 year follow up HPI Details Isaac is a 72-year-old male with past medical history of hypertension, hyperlipidemia, diabetes, mild obesity, assymetric septal hypertropy who present for follow-up. Today he reports that he has been doing generally well since his last visit on 04/14/2022 He was in the ER earlier this week with report of discomfort on his left side. He ruled out for ACS. His discomfort is much improved and likely musculoskeletal in nature. He denies anterior chest discomfort. No shortness of breath, palpitations, dizziness, presyncope, syncope, PND, orthopnea or edema. He tells me he walks 2 miles daily. He follows with Dr. Breen for Nephrology. He does experience low back pain at times. Taking all meds as directed the exception of hydralazine which he takes b.i.d. and not t.i.d. 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 Surgical History S/P placement of nerve stimulator Hx of surgical procedure Hx of cystoscopy Hx of lithotripsy Hx of right hemicolectomy Hx of colonoscopy Hx of esophagogastroduodenoscopy Family History Father Unknown family medical history Mother Unknown family medical history Social History Alcohol intake: never Patient Tobacco Use Status: Never used Tobacco Second Hand Smoke Exposure: No Advance Directives Date on File: 09/08/14 Current occupational status: disabled 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/ Review of Systems Const All systems reviewed & are unremarkable except as noted in HPI and below ENT Denies dizziness Card Denies chest pain, Denies chest pain at rest, Denies chest pain with activity, Denies rapid heart rate, Denies pedal edema, Denies edema, Denies leg edema, Denies lightheadedness, Denies palpitations, Denies dyspnea, Denies dyspnea on exertion and Denies orthopnea Resp Denies cough, Denies dyspnea and Denies dyspnea on exertion GI Denies hematochezia and Denies change in stool character Musc Denies abnormal gait, Denies limited range of motion, Denies muscle cramps, Denies muscle weakness, Denies numbness, Denies radiating pain into limb, Denies stiffness and Denies tingling Neuro Denies abnormal gait, Denies dizziness, Denies numbness and Denies tingling Endo Denies palpitations Physical Exam Vital Signs: Last Vital Signs Pulse 83 04/21/23 12:54 BP 150/72 H 04/21/23 12:54 BMI result Body Mass Index 33.9 Const General: cooperative, healthy appearing, comfortable and no acute distress Orientation/consciousness: patient oriented x3 Neck Neck: Yes normal visual inspection Resp Effort & Inspection: normal respiratory effort Auscultation: clear to auscultation bilaterally, no crackles, no rales, no rhonchi and no wheezes Cardio Jugular venous distension: no JVD Rate: regular rate Rhythm: regular rhythm Heart sounds: S1 normal heart sound present, S2 normal heart sound present, no murmurs and no rubs Neuro General: patient oriented x3 Extrem General: Yes normal to inspection, No no pedal edema and No calf tenderness Psych Appearance: grossly normal Mental Status: mental status grossly normal Speech and movement: Normal speech and movement present Office Procedures EKG Details: Today, read by me, sinus rhythm, ST and T-wave abnormality laterally, LVH, most likely repolarization abnormality, rate is 83, QTC 446 millisecond [id number], Complete Assessment & Plan Assessment & Plan (1) Precordial chest pain: Code(s): R07.2 - Precordial pain Plan: Prior reports of anterior chest discomfort. He has no known history of coronary artery disease. He does have multiple cardiac risk factors including hypertension, hyperlipidemia, diabetes. Nuclear stress test was done on 12/10/2021 showing no ischemia, fixed septal defect, question artifact versus prior infarct, EF 64% with stress and 70% at rest. An echocardiogram was done on 12/30/2021 showing normal LV systolic function, mild asymmetric septal hypertrophy with impaired relaxation, no valve abnormalities. He was in the ER on 04/18/2023 with left lateral thorax discomfort. He ruled out for ACS. His discomfort was likely musculoskeletal in nature. At present he has no concerning symptoms. His EKG today shows sinus rhythm with ST and T-wave abnormality in the lateral leads. He does have findings of LVH and this could be repolarization abnormality. Blood pressure is elevated today. Will increase carvedilol to 12.5 mg b.i.d.. Will continue on aspirin, atorvastatin. Ongoing risk factor modification with good blood sugar, blood pressure and diet control. Ongoing activity as tolerated. Cardiology follow-up in 1 year, sooner if needed (2) Essential hypertension: Code(s): I10 - Essential (primary) hypertension Plan: Blood pressure elevated this visit. Initially 150/72, recheck done by me 170/88. He is taking hydralazine only twice daily. Previously had instructed him to take t.i.d. any still only takes it b.i.d.. At this time will increase his carvedilol to 12.5 mg b.i.d.. Continue losartan 50 mg daily. He follows with Dr. Schroeder for Nephrology. Will arrange for an office blood pressure check here in 2 weeks, will plan to recheck EKG at that time for comparison. (3) Other and unspecified hyperlipidemia: Code(s): E78.5 - Hyperlipidemia, unspecified Plan: Gordo LDL goal less than 70 and patient with diabetes. Labs done 01/18/2022 shows LDL 57, normal LFT. Continue current statin dose. (4) Abnormal EKG: Code(s): R94.31 - Abnormal electrocardiogram [ECG] [EKG] Plan: EKG sinus rhythm with LVH and repolarization abnormality, more pronounced than prior EKG. Will plan recheck in 2 weeks for comparison. Echo findings support this EKG abnormality Medications: New carvedilol must administer with a meal/food 12.5 mg PO BID 60 tabs 5RF Discontinued carvedilol (Coreg) must administer with a meal/food Discontinued Reason: Doctor's Order 6.25 mg PO BID 90 days 180 tabs 3RF R07.2 - Precordial pain Coding Level of Care Code Est Pt Level 4 (34147) Diagnoses Precordial chest pain R07.2 Essential hypertension I10 Other and unspecified hyperlipidemia E78.5 Abnormal EKG R94.31 CPT Codes EKG - CPT: 20951-[id number], Complete ([id number]) Time Spent (min) 26
== END 2023-04-21 13:26 | disposition home or self-care (01) ==
PROVIDERS: PCP Internal Medicine; Referring Provider Internal Medicine; Visit Provider Nurse Practitioner Family
DX: R07.2 Precordial pain (principal); I10 Essential (primary) hypertension; E78.5 Hyperlipidemia, unspecified; R94.31 Abnormal electrocardiogram [ECG] [EKG]
CPT/HCPCS: 93010; 99214

== ENCOUNTER → 2023-04-21 12:38 | Outpatient (BNVA) | payer MEDICARE, SELFPAY | PROVIDERS: PCP Internal Medicine; Referring Provider Internal Medicine; Visit Provider Nurse Practitioner Family | DX: R07.2 Precordial pain (principal); I10 Essential (primary) hypertension; E78.5 Hyperlipidemia, unspecified; R94.31 Abnormal electrocardiogram [ECG] [EKG]; Z79.899 Other long term (current) drug therapy | CPT/HCPCS: 93005; 99212 ==

== ENCOUNTER 2023-06-17 08:35 | Outpatient (AMB) | payer MEDICARE, SELFPAY ==
--- NOTE | 2023-06-17 08:49 | A.OFFVIS_ITS ---
Intake Intake Visit Reasons: 1Y PSA(SET) Intake Note: Patient is Present for Follow Up Urology Medication: Finasteride, Tamsulosin Antibiotic Allergies: None Blood Thinners: Aspirin PVR: Allergies No Known Allergies Allergy (Verified 04/21/23 12:59) HPI HPI Comments History of Present Illness Details Isaac is a pleasant male. He is seen for the following urologic condition. - lower urinary tract symptoms Yearly review Continue good effect from medications Known large trilobar hypertrophy PSA continues to remain low Continue finasteride and dropped Flomax Lower urinary tract symptoms Longstanding lower urinary tract symptoms Good response to combination therapy Current therapy Flomax 0.8 mg. 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 Surgical History S/P placement of nerve stimulator Hx of surgical procedure Hx of cystoscopy Hx of lithotripsy Hx of right hemicolectomy Hx of colonoscopy Hx of esophagogastroduodenoscopy Family History Father Unknown family medical history Mother Unknown family medical history Social History Alcohol intake: never Patient Tobacco Use Status: Never used Tobacco Second Hand Smoke Exposure: No Advance Directives Date on File: 09/08/14 Current occupational status: disabled 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/ Review of Systems Const Denies chills and Denies fever(s) Card Reports no additional complaints and Denies syncope Resp Denies cough GI Denies abdominal pain and Denies heartburn Reports as per HPI and Denies change in libido Neuro Denies syncope Psych Denies change in libido Endo Denies change in libido Physical Exam Const General: cooperative, healthy appearing, comfortable and no acute distress Orientation/consciousness: patient oriented x3 HEENT Face and sinus: Yes normal facial exam Mouth: moist mucous membranes Neck Neck: Yes normal visual inspection, Yes full ROM and Yes trachea midline Chest Chest palpation & inspection: normal inspection of the chest Resp Effort & Inspection: normal respiratory effort, able to speak in complete sentences and no respiratory distress GI Inspection: Yes normal to inspection Back/Spine/Pelvis Cervical Spine: normal cervical lordosis Thoracic/Lumbar Spine: thoracic and lumbar spine normal to inspection Skin General skin exam: no rashes or lesions noted Neuro General: patient oriented x3, gait normal, tone normal and moves all extremities Extrem General: Yes normal to inspection and Yes capillary refill normal Office Procedures Post Void Residual Post Residual Void Post Void Residual (PVR): 39 [id number] Void Residual by ultrasound Results AMB Urinalysis, Automated UA Leukoctes 70 Kim/uL Last Edit by Crys Ozuna [facility] on 06/17/23 08:56 UA Nitrite Negative Last Edit by Crys Ozuna [facility] on 06/17/23 08:56 UA Urobilinogen 0.2 mg/dL Last Edit by Crys Ozuna [facility] on 06/17/23 08:5 6 UA Protein 15 mg/dL Last Edit by Crsy Ozuna [facility] on 06/17/23 08:56 UA pH 5.5 Last Edit by Crys Ozuna [facility] on 06/17/23 08:56 UA Blood 0 Warren/uL Last Edit by Crys Ozuna [facility] on 06/17/23 08:56 UA Specific [place] 1.025 Last Edit by Crys Ozuna [facility] on 06/17/23 08: 56 UA Ketone Negative Last Edit by Crys Ozuna [facility] on 06/17/23 08:56 UA Bilirubin 0 mg/dL Last Edit by Crys Ozuna [facility] on 06/17/23 08:56 UA Glucose 0 mg/dL Last Edit by Crys Ozuna [facility] on 06/17/23 08:56 Results Reviewed Results Reviewed: Laboratory Last Values Urine pH (Auto) 5.5 06/17/23 08:50 Specific [place] (Auto) 1.025 06/17/23 08:50 Urine Protein (Auto) 15 mg/dL 06/17/23 08:50 Glucose (UA)(Auto) 0 mg/dL 06/17/23 08:50 Urine Ketones (Auto) Negative 06/17/23 08:50 Urine Blood (Auto) 0 Warren/uL 06/17/23 08:50 Urine Nitrite (Auto) Negative 06/17/23 08:50 Urine Bilirubin (Auto) 0 mg/dL 06/17/23 08:50 Urine Urobilinogen (Auto) 0.2 mg/dL 06/17/23 08:50 Leukocyte Esterase (Auto) 70 Kim/uL 06/17/23 08:50 Assessment & Plan Assessment & Plan (1) BPH w urinary obs/LUTS: Code(s): N40.1 - Benign prostatic hyperplasia with lower urinary tract symptoms; N13.8 - Other obstructive and reflux uropathy (2) Urinary hesitancy: Code(s): R39.11 - Hesitancy of micturition (3) Weak urinary stream: Code(s): R39.12 - Poor urinary stream Plan Six month follow-up bladder ultrasound Orders: Orders US bladder 6 Months N13.8 - Other obstructive and reflux uropathy, N40.1 - Benign prostatic hyperplasia with lower urinary tract symptoms, R39.12 - Poor urinary stream AMB Urinalysis Automated Today Z13.9 - Encounter for screening, unspecified AMB Post Void Residual by ultrasound Today N13.8 - Other obstructive and reflux uropathy, N40.1 - Benign prostatic hyperplasia with lower urinary tract symptoms Medications: New terazosin 5 mg PO BEDTIME 90 caps 1RF 90 days N13.8 - Other obstructive and reflux uropathy, N40.1 - Benign prostatic hyperplasia with lower urinary tract symptoms, R35.0 - Frequency of micturition Discontinued tamsulosin Discontinued Reason: Patient Completed Course 0.8 mg (2 x 0.4 mg) PO DAILY 180 caps 1RF 90 days Patient Instructions: Imaging studies, laboratory and physical exam results were discussed and reviewed in detail. No major barriers to patient understanding were identified. An opportunity to ask questions regarding the treatment plan was provided. All questions were answered. The patient expressed understanding and agreement with the above treatment plan. The patient is aware they should contact our office by phone for worsening of their current condition or the appearance of new urologic symptoms. Compliance is encouraged with any medications and followup testing that is ordered. It is a privilege to participate in the urologic care of your patient. If you have any questions or concerns regarding treatment for the above conditions, or other urologic issues, please do not hesitate to contact me. The office telephone contact is [phone]. This note is constructed using voice recognition software. While every effort has been made to ensure accuracy sugar chipper machine operator errors may have been included. Yours sincerely, Dr Rafita Garland MD, [facility] - Urology Providers of Expert, Compassionate Care for the Genitourinary System Coding Level of Care Code Est Pt Level 4 (13084) Diagnoses BPH w urinary obs/LUTS N40.1; N13.8 Urinary hesitancy R39.11 Weak urinary stream R39.12 CPT Codes Post Residual Void - PVR CPT Code: 12331-Vdup Void Residual by ultrasound ([id number])
== END 2023-06-17 09:07 | disposition home or self-care (01) ==
PROVIDERS: Visit Provider Urology
DX: N40.1 Benign prostatic hyperplasia with lower urinary tract symptoms (principal); N13.8 Other obstructive and reflux uropathy; R39.11 Hesitancy of micturition; R39.12 Poor urinary stream; Z13.9 Encounter for screening, unspecified
CPT/HCPCS: 99214

== ENCOUNTER → 2023-06-17 08:35 | Outpatient (BNVA) | payer MEDICARE, SELFPAY | PROVIDERS: Visit Provider Urology | DX: N40.1 Benign prostatic hyperplasia with lower urinary tract symptoms (principal); N13.8 Other obstructive and reflux uropathy; R39.11 Hesitancy of micturition; R39.12 Poor urinary stream | CPT/HCPCS: 51798; 81003; 99212 ==

== ENCOUNTER 2023-07-08 08:44 | Day surgery (SDC) | payer MEDICARE, SELFPAY ==
[2023-07-07 09:30] VITALS: BMI 33.9
--- NOTE | 2023-07-07 09:45 | P.CONAN_ITS ---
Documented by User: Roxana Agosto NP 07/07/23 09:49 HPI - Anesthesia Eval Consult details Narrative: 73yo M for Bilateral Lumbar five Peripheral Nerve Stimulator Trial [place] [facility]. Last office visit 04/2023. Chest pain likely musculoskeletal. Stable for 1 year f/u. Suboxone daily PMFSH Active Problems Active Problems: All Active Problems (Updated 06/17/23 @ 09:09 by Rafita Garland MD) Urinary hesitancy (Acute) Right groin pain (Acute) BPH w urinary obs/LUTS (Acute) Precordial chest pain (Acute) Essential hypertension (Acute) Type 2 diabetes mellitus with unspecified complications (Acute) Other and unspecified hyperlipidemia (Acute) Osteoarthritis of lumbar spine (Acute) Osteoarthritis of hands, bilateral (Acute) Osteoarthritis of both knees (Acute) Osteoarthritis of hip (Acute) Asymmetric septal hypertrophy (Acute) Abnormal EKG (Acute) Right inguinal hernia (Acute) Right inguinal hernia (Acute) DM2 (diabetes mellitus, type 2) (Acute) Disc degeneration, lumbar (Acute) Chronic pain syndrome (Acute) Spondylosis of lumbosacral spine with radiculopathy (Acute) GERD (gastroesophageal reflux disease) (Acute) Obesity (BMI 30-39.9) (Acute) Hypertension (Acute) 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 associated with type 2 diabetes mellitus (Acute) nursing home (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 (Acute) Past Medical History Medical History Right groin pain Right inguinal hernia On beta lala at home Hx SBO DM2 (diabetes mellitus, type 2) Disc degeneration, lumbar Chronic pain syndrome Spondylosis of lumbosacral spine with radiculopathy GERD (gastroesophageal reflux disease) Obesity (BMI 30-39.9) Hypertension 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 associated with type 2 diabetes mellitus 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 Family History Family History Father Unknown family medical history Mother Unknown family medical history Family history of problems with anesthesia: No Surgical History Surgical History Hx of inguinal hernia repair S/P placement of nerve stimulator Hx of surgical procedure Hx of cystoscopy Hx of lithotripsy Hx of right hemicolectomy Hx of colonoscopy Hx of esophagogastroduodenoscopy History of Problems with Anesthesia: No Social History Social History Alcohol intake: never Patient Tobacco Use Status: Never used Tobacco Second Hand Smoke Exposure: No Use of substances other than those prescribed or required for medical reasons: No Are you DNR?: No Advance Directives: No Advance Directives Information Provided: Yes Advance Directives Date on File: 09/08/14 Current occupational status: disabled 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/ Meds Allergies Allergy/AdvReac Type Severity Reaction Status Date / Time No Known Allergies Allergy Verified 07/08/23 09:11 Home Medications Medication Instructions Recorded Confirmed Last Taken Type aspirin 81 mg tablet,delayed 81 mg PO DAILY 08/12/20 04/21/23 07/01/23 History release (Adult Low Dose Aspirin) atorvastatin 40 mg tablet 40 mg PO DAILY 08/12/20 07/08/23 07/08/23 05:00 History hydralazine 100 mg tablet 100 mg PO TID 08/12/20 07/08/23 07/08/23 05:00 History omeprazole 20 mg capsule,delayed 20 mg PO BID heartburn 08/12/20 07/08/23 07/08/23 05:00 History release lifitegrast 5 % eye drops in a 1 drp ophthalmic (eye) BID 12/23/22 07/08/23 07/08/23 05:00 History dropperette (Xiidra) Exam Height,Weight and Vital Signs: Height 5 ft 7 in Weight 98.2 kg Pertinent Lab Results Pertinent Lab Results: Laboratory Tests 04/18/23 07:53 WBC 6.2 Hgb 11.8 L Hct 36.6 L Plt Count 225 Sodium 141 Potassium 4.3 Chloride 107 Carbon Dioxide 27 BUN 16 Creatinine 0.82 Narrative Narrative: EKG 04/2023 sinus rhythm, ST and T-wave abnormality laterally, LVH, most likely repolarization abnormality, rate is 83, QTC 446 millisecond Nuclear stress test was done on 12/10/2021 showing no ischemia, fixed septal defect, question artifact versus prior infarct, EF 64% with stress and 70% at rest. An echocardiogram was done on 12/30/2021 showing normal LV systolic function, mild asymmetric septal hypertrophy with impaired relaxation, no valve abnormalities. Assessment and Plan Assessment Anesthesia Assessment: Chart Reviewed Final Anesthetic Review Family History of Problems with Anesthesia: No History of Problems with Anesthesia: No Documented by User: Mariah Domínguez MD 07/08/23 09:34 [facility] Past Medical History Medical History Right groin pain Right inguinal hernia On beta lala at home Hx SBO DM2 (diabetes mellitus, type 2) Disc degeneration, lumbar Chronic pain syndrome Spondylosis of lumbosacral spine with radiculopathy GERD (gastroesophageal reflux disease) Obesity (BMI 30-39.9) Hypertension 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 associated with type 2 diabetes mellitus nursing home (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 Family History Family History Father Unknown family medical history Mother Unknown family medical history Surgical History Surgical History Hx of inguinal hernia repair S/P placement of nerve stimulator Hx of surgical procedure Hx of cystoscopy Hx of lithotripsy Hx of right hemicolectomy Hx of colonoscopy Hx of esophagogastroduodenoscopy Social History Social History Alcohol intake: never Patient Tobacco Use Status: Never used Tobacco Second Hand Smoke Exposure: No Use of substances other than those prescribed or required for medical reasons: No Are you DNR?: No Advance Directives: No Advance Directives Information Provided: Yes Advance Directives Date on File: 09/08/14 Current occupational status: disabled 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/ Meds Allergies Allergy/AdvReac Type Severity Reaction Status Date / Time No Known Allergies Allergy Verified 07/08/23 09:11 Home Medications Medication Instructions Recorded Confirmed Last Taken Type aspirin 81 mg tablet,delayed 81 mg PO DAILY 08/12/20 04/21/23 07/01/23 History release (Adult Low Dose Aspirin) atorvastatin 40 mg tablet 40 mg PO DAILY 08/12/20 07/08/23 07/08/23 05:00 History hydralazine 100 mg tablet 100 mg PO TID 08/12/20 07/08/23 07/08/23 05:00 History omeprazole 20 mg capsule,delayed 20 mg PO BID heartburn 08/12/20 07/08/23 07/08/23 05:00 History release lifitegrast 5 % eye drops in a 1 drp ophthalmic (eye) BID 12/23/22 07/08/23 07/08/23 05:00 History dropperette (Xiidra) Exam Airway Mallampati Class: III TM Dist: >3cm Neck ROM: Full Assessment and Plan Assessment Anesthesia Assessment: Anesthesia Plan Discussed Final Anesthetic Review NPO: Yes ASA Class: III Final Preanesthetic Review: No Changes in Pt Med Stat, Meds/Allgs Chart Reviewed, Consent Obtained/Reviewed and Anes Risks/Benef Reviewed Patient Risk: Intermediate Procedure Risk: Low Anesthetic Plan Anesthetic Plan: MAC: Disposition: Standard PACU
--- NOTE | ~2023-07-08 | FL_ITS ---
EXAMINATION: XR FLUOROSCOPY WITH IMAGES CLINICAL INFORMATION: L5 PN stim trial. COMPARISON: None available. TECHNIQUE: Fluoroscopy Supervised By: Dr. Lalo Cooper. Fluoroscopy Time: 0.7 minutes. Cumulative Dose: 16 mGy. DAP: 3.38 Gycm2. Images: 2. FINDINGS: Images demonstrate leads or probes projecting over the bilateral posterior lateral L5 vertebrae FL/FL guidance in OR IMPRESSION: Fluoroscopy guidance for pain management procedure
[2023-07-08 09:13] VITALS: BMI 33.1
[2023-07-08 09:19] VITALS: BP 157/78; PULSE 87; RESP 16; TEMP 36.7; O2SAT 97
[2023-07-08] MEDS: Lactated Ringers 1,000 ML 100 ML IVCONT (09:37)
[2023-07-08 09:42] LABS: Glucose, Whole Blood 185 mg/dL (60-115)
--- NOTE | 2023-07-08 10:09 | P.HPSUR_ITS ---
Pre-Procedural Eval Section A Date of Service: 07/08/23 The patient is an INPATIENT: No Changes since office visit: Yes Patient answered all questions The History & Physical has been completed within 30 days and I have reviewed it.: No Section B Chief Complaint: Spondylosis without myelopathy or radiculopathy, Details of Present Illness: As above Relevant Family History (Specify if Yes): No Relevant Social History: None Present Medications: see Short Stay Collaborative assessment Medical History: No relevant PMH History of Previous Operations: No relevant previous surgery Allergies: Allergies Allergy/AdvReac Type Severity Reaction Status Date / Time No Known Allergies Allergy Verified 07/08/23 09:11 Review of Systems Sugical H&P ROS: Negative: Constitution, Respiratory, Neurological, Psychiatric, Hem-Onc, Allergic/Immunologic, Gastrointestinal, Genitourinary, Integumentary and Eyes/Ears/Nose/Throat and Yes, Specify: Cardiovascular ( HTN), Musculoske letal ( spondylosis lumbar) and Endocrine ( diabetes mellitus) Exam Surgical H&P Exam: Normal: HEENT, Normal: Heart, Normal: Lungs, Normal: Extremities, Normal: Abdomen, Normal: Skin and Normal: Neurological Plan Diagnosis/Plan: Unchanged I have reviewed the history and physical and performed a pertinent physical examination on my patient. No changes have occurred unless specified. Time Spent With Patient Time: Total time managing care of this patient today ___5_ minutes.
--- NOTE | 2023-07-08 10:10 | P.BOP_ITS ---
Brief Operative Note Date of Service: 07/08/23 Pre-op diagnosis: spondylosis lumbar without myelopathy or radiculopathy Post-op diagnosis: same Procedure: PNS stim wave /curonix bilateral L5 Implants: none permanent Surgeon: Lalo Cooper MD Anesthesia: MAC Was an Bookkeeping Machine Operator used for this Procedure?: No Estimated blood loss (mL): 3 Condition: stable Disposition: PACU
--- NOTE | 2023-07-08 10:11 | W.PM.OPN ---
Operative Note Operative Note Date of Service: 07/08/23 Narrative: Isaac is very pleasant 73 years old gentleman who presents himself in the operating room today for a trial of PNS curonix stim wave bilateral L5 position. Informed consent was thoroughly explained to the patient, patient expressed understanding. After that the patient was brought to the operating room and positioned prone on operating table. ASA monitors were applied and the patient was moderately sedated. Time-out was performed delineating name and date of of the patient site and side of the procedure nature of the procedure risk of fire needs for DVT prophylaxis and need for antibiotics. 30 minutes before procedure the patient received 2 g of cefazolin intravenously. The entire back of the patient was prepped with ChloraPrep Twice and draped with full body fenestrated drape. Sterilely draped C-arm was brought over the operating field and sq picture of L5 vertebra was demonstrated on the screen. Point of interest were delineated as connection of the superior articular process of L5 with transverse process of L5 bilaterally. Tilting machine ipsilateral left and right the most prominent picture of the confluence Of the superior articular process of L5 with corresponding transverse process was demonstrated on the screen. 5 cm below the level of the point of interest extra anatomically 16 gauge malleable introducer needle was inserted through the skin wheal which was raised with lidocaine 2% mixed with bupivacaine 0.5% 1-1. When needle gently contacted the bone at the point of interest on the right the guitar wire was inserted through the needle and spread in the projection of the medial branch groove. After that the stimulating electrode was inserted and driving stylet of the stimulating electrode was replaced with conducting copper wire. The procedure was repeated in the mirroring fashion on the left side. After that the needles were withdrawn, the patient was awaken and stimulated. The stimulation amplitude was 1.5 milliamp Bilaterally . The patient reported stimulation Corresponding to the area of his pain. the stimulating electrodes were tied on itself to fix the stimulating copper wire inside them. After that the surgical glue was applied to the level of the skin and Steri-Strips were used to fix the electrodes to the level of the skin. The patient tolerated procedure fairly well. Sterile dressing was applied. The stimulating paddle was applied over the dressing. Patient was transferred stable to PACU .
[2023-07-08 11:46] VITALS: BP 150/74; PULSE 90; RESP 15; TEMP 36.9; O2SAT 96
[2023-07-08 12:01] VITALS: BP 153/85; PULSE 81; RESP 16; TEMP 37; O2SAT 96
[2023-07-08] MEDS: oxyCODONE HCl Immed Release 5 MG TABLET PO (12:14)
== END 2023-07-08 12:33 | disposition home or self-care (01) ==
PROVIDERS: PCP Internal Medicine; Visit Provider Anesthesiology
PROC: (CPT 64555; principal; 2023-07-08 10:40)
DX: M47.816 Spondylosis without myelopathy or radiculopathy, lumbar region (principal); M47.27 Other spondylosis with radiculopathy, lumbosacral region; G89.4 Chronic pain syndrome; M51.36 Other intervertebral disc degeneration, lumbar region; I10 Essential (primary) hypertension; E11.42 Type 2 diabetes mellitus with diabetic polyneuropathy; Z79.4 Long term (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; Z79.84 Long term (current) use of oral hypoglycemic drugs; Z79.82 Long term (current) use of aspirin; Z79.899 Other long term (current) drug therapy; Z98.890 Other specified postprocedural states
CPT/HCPCS: 64555; 82947; C1897; J0690; J1100; J2250; J2405; J2704; J2795; J3010

== ENCOUNTER → 2023-07-08 08:44 | Outpatient (BNV) | payer MEDICARE, SELFPAY | PROVIDERS: PCP Internal Medicine; Visit Provider Anesthesiology | DX: M47.816 Spondylosis without myelopathy or radiculopathy, lumbar region (principal) | CPT/HCPCS: 64555 ==

== ENCOUNTER 2023-07-14 09:12 | Outpatient (AMB) | payer MEDICARE, SELFPAY ==
--- NOTE | 2023-07-14 09:28 | MHC.OFFVIS ---
Intake Vital Signs 07/14/23 09:40 Height 5 ft 7 in Weight 213 lb 2 oz BMI 33.4 BP 140/74 H Blood Pressure Location Lt brachial Position Sitting Respiration 14 Pulse 98 Pulse Source Pulse Oximeter Pulse Oximetry (%) 98 Oxygen Delivery Method Room Air Intake Visit Reasons: S/p B/L Trial of L5 PNS *Curonix* 07/08/23/conf Allergies No Known Allergies Allergy (Verified 07/14/23 09:41) HPI HPI Comments History of Present Illness Details Isaac is back in my office after the trial of B/l curonix/freedom PNS bilaterally place at the both L5 position electrodes at the b/l confluence of the SAP and TP. He reports excellent pain relieve, he reports pain 1/10. Interesting enough in the middle of the the trial the patient reported the pain on the left side starting to bother him while the stimulation was done only on the right. The rep turned the left side on and it immediately improved the patient's pain. I offered hoim to consider the permanent implant of the device the patient agreed. I will schedurle him for the procedure WILBER. Trial electrodes were removed and no signed of the infection or bleeding is noted. Bacitracin ointment applied. Proir: he received radiofrequency ablation of L3-L4 does ramus L5 medial branches. He reported absence of pain for 1st 3 weeks after the procedure. However now the pain is starting to come back. This is too early. The same situation is with his PNS bilateral L5. He was enjoying stimulation for 16 days while the electrodes were in. However after removal of the electrodes the pain came back in about 1 month. 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 Previously he had few days of PNS trial after which lead was lost.? He reported almost a month of complete pain relief after that trial. We discussed the situation at hands. Unfortunately for the next 5 months I cannot perform anything for his spondylosis because the RFA considered to be ultimate procedure. Good knows that his pain after RFA is not full strength and he reports about 5/10 pain. He is disappointed that he does not have pain relieve 0 of 10 like he did the 1st few weeks after the procedure. [facility] Medical History Right groin pain Right inguinal hernia On beta lala at home Hx SBO DM2 (diabetes mellitus, type 2) Disc degeneration, lumbar Chronic pain syndrome Spondylosis of lumbosacral spine with radiculopathy GERD (gastroesophageal reflux disease) Obesity (BMI 30-39.9) Hypertension 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 associated with type 2 diabetes mellitus half-way (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 Surgical History Hx of inguinal hernia repair S/P placement of nerve stimulator Hx of surgical procedure Hx of cystoscopy Hx of lithotripsy Hx of right hemicolectomy Hx of colonoscopy Hx of esophagogastroduodenoscopy Family History Father Unknown family medical history Mother Unknown family medical history Social History Alcohol intake: never Comment: oxycodone was given in pacu Patient Tobacco Use Status: Never used Tobacco Second Hand Smoke Exposure: No Advance Directives Date on File: 09/08/14 Current occupational status: disabled 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/ Review of Systems Const All systems reviewed & are unremarkable except as noted in HPI and below Physical Exam Vital Signs: Last Vital Signs Pulse 98 07/14/23 09:40 Resp 14 07/14/23 09:40 BP 140/74 H 07/14/23 09:40 Pulse Ox 98 07/14/23 09:40 Oxygen Delivery Method Room Air 07/14/23 09:40 BMI result Body Mass Index 33.4 Const General: cooperative, comfortable and no acute distress Nutritional Appearance: obese Orientation/consciousness: patient oriented x3 Limitations: no limitations HEENT Head: Yes normocephalic and Yes atraumatic Mouth: moist mucous membranes Eyes Eyelids: Yes eyelids normal Pupils: Equal, round and reactive pupils present EOM: EOMs intact bilaterally Neck Neck: Yes full ROM, Yes no lymphadenopathy and Yes no JVD Chest Chest palpation & inspection: normal inspection of the chest Resp Effort & Inspection: normal respiratory effort Cardio Jugular venous distension: no JVD Back/Spine/Pelvis Other: He is unable to stand on tiptoes with his right foot. I think there is certain objective weakness in the right lower extremity. It corresponds to results of the MRI which is dictated as below. Palpation of the bilateral lumbar spine in paraspinal regions reveals severe tenderness. Loading test is positive. Flexing forward does not affect his pain flexing backwards makes his pain very severe. Straight leg rising is negative for pain increase in the back neck. Lassegue is negative for pain increase. Thoracic/Lumbar Spine: No kyphosis and No Thoracic/lumbar scoliosis Skin General skin exam: no rashes or lesions noted and dry skin Neuro General: patient oriented x3, gait normal and moves all extremities Cranial nerves: Yes Equal, round and reactive pupils present Gait exam (Neuro): Normal gait present Motor exam (neuro): 5/5 motor strength present throughout Extrem General: Yes full ROM and Yes no clubbing, cyanosis or edema Psych Appearance: well kempt Mental Status: mental status grossly normal Attitude: cooperative Assessment & Plan Assessment & Plan (1) Arthropathy of facet joint: Code(s): M47.819 - Spondylosis without myelopathy or radiculopathy, site unspecified Plan The results of the trial of the PNS curonix are as above. The patient is very eager to go for the permanent implant. I will schedule him for the procedure WILBER. Coding Level of Care Code Est Pt Level 3 (93924) Diagnoses Arthropathy of facet joint M47.819
[2023-07-14 09:40] VITALS: BP 140/74; PULSE 98; RESP 14; O2SAT 98; BMI 33.4
== END 2023-07-14 10:00 | disposition home or self-care (01) ==
PROVIDERS: PCP Internal Medicine; Visit Provider Anesthesiology
DX: M47.819 Spondylosis without myelopathy or radiculopathy, site unspecified (principal)
CPT/HCPCS: 99024

== ENCOUNTER → 2023-07-14 09:12 | Outpatient (BNVA) | payer MEDICARE, SELFPAY | PROVIDERS: PCP Internal Medicine; Visit Provider Anesthesiology | DX: M47.819 Spondylosis without myelopathy or radiculopathy, site unspecified (principal) | CPT/HCPCS: 99212 ==

== ENCOUNTER 2023-07-28 11:16 | Outpatient (REF) | payer MEDICARE, SELFPAY ==
[2023-07-28 12:17] LABS: Estimated Average Glucose 180 mg/dL; Hemoglobin A1c % 7.9 % (<6.0)
[2023-07-28 12:36] LABS: Cholesterol 131 mg/dL (<200); HDL Cholesterol 61 mg/dL (>40); LDL Cholesterol Calculated 61 mg/dL (<100); Triglycerides 46 mg/dL (<150)
[2023-07-28 12:43] LABS: Alanine Aminotransferase 13 U/L (0-40); Albumin Level 4.1 g/dL (3.5-5.0); Alkaline Phosphatase 66 U/L (39-117); Aspartate Amino Transferase 15 U/L (5-37); Bilirubin Direct 0.2 mg/dL (0.0-0.5); Bilirubin Total 0.4 mg/dL (0.0-1.0); Glucose Fasting 164 mg/dL (60-99); Total Protein 7.4 g/dL (6.5-8.0)
[2023-07-28 12:45] LABS: Reflex LDLD? No
== END 2023-07-28 11:17 | disposition home or self-care (01) ==
LOC: HO.LNP 11:16
PROVIDERS: Visit Provider Internal Medicine
DX: E78.00 Pure hypercholesterolemia, unspecified (principal); E11.9 Type 2 diabetes mellitus without complications
CPT/HCPCS: 80061; 80076; 82947; 83036

== ENCOUNTER 2023-07-29 07:34 | Day surgery (SDC) | payer MEDICARE, SELFPAY ==
[2023-07-27 16:52] VITALS: BMI 33.4
--- NOTE | 2023-07-28 10:53 | P.CONAN_ITS ---
Documented by User: Roxana Agosto NP 07/28/23 10:56 HPI - Anesthesia Eval Consult details Narrative: 73yo M for L5 Peripheral Nerve Stimulator Implant s/p Bilateral Lumbar five Peripheral Nerve Stimulator Trial 07/2023 with MAC Follows [facility] cardiology. Last office visit 04/2023. Chest pain likely musculoskeletal. Stable for 1 year f/u. Suboxone daily PMFSH Active Problems Active Problems: All Active Problems (Updated 06/17/23 @ 09:09 by Rafita Garland MD) Urinary hesitancy (Acute) Abnormal EKG (Acute) Asymmetric septal hypertrophy (Acute) Osteoarthritis of hip (Acute) Osteoarthritis of both knees (Acute) Osteoarthritis of hands, bilateral (Acute) Osteoarthritis of lumbar spine (Acute) Other and unspecified hyperlipidemia (Acute) Type 2 diabetes mellitus with unspecified complications (Acute) Essential hypertension (Acute) Precordial chest pain (Acute) Right inguinal hernia (Acute) BPH w urinary obs/LUTS (Acute) Right groin pain (Acute) Right inguinal hernia (Acute) DM2 (diabetes mellitus, type 2) (Acute) Disc degeneration, lumbar (Acute) Chronic pain syndrome (Acute) Spondylosis of lumbosacral spine with radiculopathy (Acute) GERD (gastroesophageal reflux disease) (Acute) Obesity (BMI 30-39.9) (Acute) Hypertension (Acute) 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 associated with type 2 diabetes mellitus (Acute) USP (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 (Acute) Past Medical History Medical History Right groin pain Right inguinal hernia On beta lala at home Hx SBO DM2 (diabetes mellitus, type 2) Disc degeneration, lumbar Chronic pain syndrome Spondylosis of lumbosacral spine with radiculopathy GERD (gastroesophageal reflux disease) Obesity (BMI 30-39.9) Hypertension 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 associated with type 2 diabetes mellitus 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 Family History Family History Father Unknown family medical history Mother Unknown family medical history Family history of problems with anesthesia: No Surgical History Surgical History Hx of inguinal hernia repair S/P placement of nerve stimulator Hx of surgical procedure Hx of cystoscopy Hx of lithotripsy Hx of right hemicolectomy Hx of colonoscopy Hx of esophagogastroduodenoscopy History of Problems with Anesthesia: No Social History Social History Alcohol intake: never Comment: oxycodone was given in pacu Patient Tobacco Use Status: Never used Tobacco Second Hand Smoke Exposure: No Use of substances other than those prescribed or required for medical reasons: No Are you DNR?: No Advance Directives: No Advance Directives Information Provided: Yes Advance Directives on File: No Advance Directives Date on File: 09/08/14 Current occupational status: disabled 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/ Meds Allergies Allergy/AdvReac Type Severity Reaction Status Date / Time No Known Allergies Allergy Verified 07/14/23 09:41 Home Medications Medication Instructions Recorded Confirmed Last Taken Type aspirin 81 mg tablet,delayed 81 mg PO DAILY 08/12/20 07/29/23 07/01/23 History release (Adult Low Dose Aspirin) atorvastatin 40 mg tablet 40 mg PO DAILY 08/12/20 07/29/23 07/29/23 History hydralazine 100 mg tablet 100 mg PO TID 08/12/20 07/29/23 07/08/23 05:00 History omeprazole 20 mg capsule,delayed 20 mg PO BID heartburn 08/12/20 07/29/23 07/29/23 History release lifitegrast 5 % eye drops in a 1 drp ophthalmic (eye) BID 12/23/22 07/29/23 07/08/23 05:00 History dropperette (Xiidra) Exam Height,Weight and Vital Signs: Height 5 ft 7 in Weight 96.615 kg Pertinent Lab Results Pertinent Lab Results: Laboratory Tests 04/18/23 07:53 WBC 6.2 Hgb 11.8 L Hct 36.6 L Plt Count 225 Sodium 141 Potassium 4.3 Chloride 107 Carbon Dioxide 27 BUN 16 Creatinine 0.82 Narrative Narrative: EKG 04/2023 sinus rhythm, ST and T-wave abnormality laterally, LVH, most likely repolarization abnormality, rate is 83, QTC 446 millisecond Nuclear stress test was done on 12/10/2021 showing no ischemia, fixed septal defect, question artifact versus prior infarct, EF 64% with stress and 70% at rest. An echocardiogram was done on 12/30/2021 showing normal LV systolic function, mild asymmetric septal hypertrophy with impaired relaxation, no valve abnormalities. Assessment and Plan Assessment Anesthesia Assessment: Chart Reviewed Final Anesthetic Review Family History of Problems with Anesthesia: No History of Problems with Anesthesia: No Documented by User: Mary Howe MD 07/29/23 08:29 HPI - Anesthesia Eval Anesthesia Pre-Procedure Meds If Yes to any meds - educate patient: Pt education - possibility of cancelled proc at provider's discretion PMFSH Past Medical History Medical History Right groin pain Right inguinal hernia On beta lala at home Hx SBO DM2 (diabetes mellitus, type 2) Disc degeneration, lumbar Chronic pain syndrome Spondylosis of lumbosacral spine with radiculopathy GERD (gastroesophageal reflux disease) Obesity (BMI 30-39.9) Hypertension 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 associated with type 2 diabetes mellitus 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 Family History Family History Father Unknown family medical history Mother Unknown family medical history Surgical History Surgical History Hx of inguinal hernia repair S/P placement of nerve stimulator Hx of surgical procedure Hx of cystoscopy Hx of lithotripsy Hx of right hemicolectomy Hx of colonoscopy Hx of esophagogastroduodenoscopy Social History Social History Alcohol intake: never Comment: oxycodone was given in pacu Patient Tobacco Use Status: Never used Tobacco Second Hand Smoke Exposure: No Use of substances other than those prescribed or required for medical reasons: No Are you DNR?: No Advance Directives: No Advance Directives Information Provided: Yes Advance Directives on File: No Advance Directives Date on File: 09/08/14 Current occupational status: disabled 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/ Meds Allergies Allergy/AdvReac Type Severity Reaction Status Date / Time No Known Allergies Allergy Verified 07/14/23 09:41 Home Medications Medication Instructions Recorded Confirmed Last Taken Type aspirin 81 mg tablet,delayed 81 mg PO DAILY 08/12/20 07/29/23 07/01/23 History release (Adult Low Dose Aspirin) atorvastatin 40 mg tablet 40 mg PO DAILY 08/12/20 07/29/23 07/29/23 History hydralazine 100 mg tablet 100 mg PO TID 08/12/20 07/29/23 07/08/23 05:00 History omeprazole 20 mg capsule,delayed 20 mg PO BID heartburn 08/12/20 07/29/23 07/29/23 History release lifitegrast 5 % eye drops in a 1 drp ophthalmic (eye) BID 12/23/22 07/29/23 07/08/23 05:00 History dropperette (Xiidra) Exam Airway Mallampati Class: III TM Dist: >3cm Neck ROM: Limited Heart: rrr Lungs: cta Assessment and Plan Assessment Anesthesia Assessment: Anesthesia Plan Discussed Final Anesthetic Review NPO: Yes ASA Class: III Final Preanesthetic Review: No Changes in Pt Med Stat, Meds/Allgs Chart Reviewed, Consent Obtained/Reviewed and Anes Risks/Benef Reviewed Patient Risk: Intermediate Procedure Risk: Low Anesthetic Plan Anesthetic Plan: MAC: Disposition: Standard PACU
[2023-07-29] VITALS (11 sets, daily range): BP systolic 129–177; BP diastolic 72–88; PULSE 65–76; RESP 16; TEMP 36.5–36.9; O2SAT 96–98; BMI 33.6
--- NOTE | ~2023-07-29 | FL_ITS ---
EXAMINATION: XR FLUOROSCOPY WITH IMAGES CLINICAL INFORMATION: L5 peripheral nerve stimulator. COMPARISON: None available. TECHNIQUE: Fluoroscopy Supervised By: Dr. Lalo Cooper. Fluoroscopy Time: 3.2 minutes. Cumulative Dose: 89.8 mGy. DAP: 19.9 Gycm2. Images: 4. FINDINGS: Images demonstrate bilateral wires or leads projecting over the bilateral lateral lower lumbar spine FL/FL guidance in OR IMPRESSION: Fluoroscopy guidance for peripheral nerve stimulator placement.
[2023-07-29 08:13] LABS: Glucose, Whole Blood 162 mg/dL (60-115)
[2023-07-29] MEDS: Lactated Ringers 1,000 ML 100 ML IVCONT (08:15)
--- NOTE | 2023-07-29 08:52 | MHC.SHP ---
Pre-Procedural Eval Section A Date of Service: 07/29/23 The patient is an INPATIENT: No Changes since office visit: Yes Patient answered all questions The History & Physical has been completed within 30 days and I have reviewed it.: No Section B Chief Complaint: Spondylosis without myelopathy or radiculopathy, Details of Present Illness: As above Relevant Family History (Specify if Yes): No Relevant Social History: None Present Medications: see Short Stay Collaborative assessment Medical History: No relevant PMH History of Previous Operations: No relevant previous surgery Allergies: Allergies Allergy/AdvReac Type Severity Reaction Status Date / Time No Known Allergies Allergy Verified 07/14/23 09:41 Review of Systems Sugical H&P ROS: Negative: Constitution, Cardiovascular, Respiratory, Neurological, Psychiatric, Hem-Onc, Allergic/Immunologic, Gastrointestinal, Genitourinary, Musculoskeletal, Integumentary, Endocrine and Eyes/Ears/Nose/Throat Review of Systems Comment: The patient reported after the trial itching in the area of the insertion, later on the itching spread to the rest of his body and was getting more mild after the removal of the leads. He denies any wall. I explained to him that this is most likely allergy to the tape but allergy to the materials of the stimulator could not be excluded.I offered him to send him to allergologist and find what is the cause of those symptoms however he refused and stated that his pain was very well managed by the curonix device and he wants the implantation to proceed today. Exam Surgical H&P Exam: Normal: HEENT, Normal: Heart, Normal: Lungs, Normal: Extremities, Normal: Abdomen, Normal: Skin and Normal: Neurological Plan Diagnosis/Plan: Unchanged I have reviewed the history and physical and performed a pertinent physical examination on my patient. No changes have occurred unless specified. Time Spent With Patient Time: Total time managing care of this patient today ___15_ minutes.
--- NOTE | 2023-07-29 13:04 | PM.OP ---
Brief Operative Note Date of Service: 07/29/23 Pre-op diagnosis: Spondylosis lumbar spine without myelopathy or radiculopathy Post-op diagnosis: same Procedure: implantation of curonix/ freedom peripheral nerve stimulation in bilateral medial branch L4 position. Implants: Stimulating leads Curonix #2 Surgeon: Lalo Cooper MD Anesthesia: GLMA Was an Outdoor Studies Director used for this Procedure?: No Estimated blood loss (mL): 18 Pathology: none sent Condition: stable Disposition: PACU
--- NOTE | 2023-07-29 13:14 | P.OP_ITS ---
Operative Note Operative Note Date of Service: 07/29/23 Narrative: Implantation of the Curonix PNS bilateral medial branches of L4 Isaac is very pleasant 73 years old gentleman who presents himself in the operating room today for a permanent implant of PNS curonix stim wave bilateral L5 position. Informed consent was thoroughly explained to the patient, risks and benefits explained including bleeding infection peripheral nerve damage. The patient expressed understanding. 2 weeks ago patient had some swelling in his mouth and went to dentist. He said that swelling is disappeared now. He reports that the dentist no longer prescribe him antibiotics. After that the patient was brought to the operating room and positioned prone on operating table. ASA monitors were applied and General anesthesia with LMA was induced. Time-out was performed delineating name and date of of the patient site and side of the procedure nature of the procedure risk of fire needs for DVT prophylaxis and need for antibiotics. 30 minutes before procedure the patient received 2 g of cefazolin intravenously. The entire back of the patient was prepped with ChloraPrep Twice and draped with full body fenestrated drape Including Ioban film. Sterilely draped C-arm was brought over the operating field and sq picture of L5 vertebra was demonstrated on the screen. Point of interest were delineated as connection of the superior articular process of L5 with transverse process of L5 bilaterally. 2 cm below the level of bilateral sacral alae to horizontal incisions were made into the skin 1 on the right and 1 on the left 3 cm long each incision. The skin was anesthetized with mixture of lidocaine ropivacaine 1-1 before the incision. The incision was widened with sharp and dull dissection and thorough hemostasis was obtained. Tilting machine ipsilateral left and right the most prominent picture of the confluence Of the superior articular process of L5 with corresponding transverse process was demonstrated on the screen. 16 gauge malleable introducer needle was inserted into the wound and continue to advanced toward the targets 1st on the right and then on the left. The advancement to the target of the left proved to be very difficult. multiple attempts were made to reach the target. When needle gently contacted the bone at the point of interest the guitar wire was inserted through the needle and spread in the projection of the medial branch groove. After that the stimulating electrodes was inserted and driving stylet of the stimulating electrode was replaced with conducting copper wire. Upon completion of the electrode positioning the needles were carefully withdrawn and the anchoring sutures were applied to the body of the each of the catheter. The wounds were irrigated with normal saline containing vancomycin and after that they were packed with 4 x 4 soaked with irrigation solution. After that attention was concentrated on the projection of L4 and L5 spinous processes were vertical incision was made with 15 blade s calpel. The skin before incision was anesthetized with previously mentioned mixture of local anesthetic. The wound was widened and deepened until prevertebral fascia. Thorough hemostasis was obtained. The proximal ends of the stimulating catheters were tunneled subcutaneously to the midline wound from bilateral lateral wounds. After that the position of the electrodes was verified on anterior posterior and lateral views. After that the electrodes were tied on itself in the middle incision and the coil was formed from the electrodes using 0 silk sutures.. The pocket was formed by dull dissection cephalad from the incision and the coil was inserted into the pocket. After that The wounds were irrigated with normal saline containing vancomycin. 0-0 silk sutures were used to close the wounds, 2-0 sutures were used to approximate the skin. Rare lynn were applied to all 3 incisions. Bacitracin ointment was applied over the incision and Tegaderm dressing was applied. Stimulating device was taped to the dressing using silk tape. The patient tolerated procedure well. At the end of the procedure he was extubated transferred on the stretcher and move stable to PACU. .
[2023-07-29] MEDS: HYDROmorphone HCl 0.5 MG/0.5 ML SYRINGE 0.25 MG IVPUSH ×2 (13:15→13:20)
[2023-07-29] MEDS: fentaNYL citrate/PF 100 MCG/2 ML VIAL 25 MCG IVPUSH (13:39)
== END 2023-07-29 14:40 | disposition home or self-care (01) ==
PROVIDERS: PCP Internal Medicine; Visit Provider Anesthesiology
PROC: (CPT 64555; principal; 2023-07-29 09:30)
DX: M47.819 Spondylosis without myelopathy or radiculopathy, site unspecified (principal); G89.4 Chronic pain syndrome; I10 Essential (primary) hypertension; E11.42 Type 2 diabetes mellitus with diabetic polyneuropathy; Z79.4 Long term (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; E66.9 Obesity, unspecified; Z68.33 Body mass index [BMI] 33.0-33.9, adult; Z87.442 Personal history of urinary calculi; Z90.49 Acquired absence of other specified parts of digestive tract; Z79.899 Other long term (current) drug therapy
CPT/HCPCS: 64555 ×2; 82947; C1713; C1816; J0665; J0690; J1100; J1170; J2405; J2704; J2795; J3010; J3370

== ENCOUNTER → 2023-07-29 07:34 | Outpatient (BNV) | payer MEDICARE, SELFPAY | PROVIDERS: PCP Internal Medicine; Visit Provider Anesthesiology | DX: M47.816 Spondylosis without myelopathy or radiculopathy, lumbar region (principal) | CPT/HCPCS: 64555 ==

== ENCOUNTER 2023-08-04 09:13 | Outpatient (AMB) | payer MEDICARE, SELFPAY ==
--- NOTE | 2023-08-04 09:17 | MHC.OFFVIS ---
Intake Vital Signs 08/04/23 09:29 Height 5 ft 7 in Weight 214 lb BMI 33.5 BP 140/68 H Blood Pressure Location Lt brachial Position Sitting Respiration 17 Pulse 106 H Pulse Source Pulse Oximeter Pulse Oximetry (%) 97 Oxygen Delivery Method Room Air Intake Visit Reasons: S/p B/L L5 Curonix PNS IMPLANT 07/29/23/Confirmed Intake Note: patient comes in for post-op appointment S/P bilateral L5 Curonix PNS Implant 07/29/2023. Reports pain level 1/10. Allergies No Known Allergies Allergy (Verified 08/04/23 09:30) HPI HPI Comments History of Present Illness Details Isaac is back in my office after the permanent implant of B/l curonix/freedom PNS bilaterally place at the both L5 position electrodes at the b/l confluence of the SAP and TP. He reports excellent pain relieve, he reports pain 1/10. The dressing was removed today, the wounds are clean, lynn are competent, no redness, no swelling, no pathological discharge , no local tenderness, reports minor itching, the wound was prepped with ChloraPrep and sterile dressing with bacitracin ointment was applied. Next week I will remove the lynn. Mobility limitations activities limitations were carefully explained to the patient. No NSAIDs and no steroids were reiterated to the patient. Relative of the patient who was present with him during the dressing change helped us to communicate. Proir: he received radiofrequency ablation of L3-L4 does ramus L5 medial branches. He reported absence of pain for 1st 3 weeks after the procedure. However now the pain is starting to come back. This is too early. The same situation is with his PNS bilateral L5. He was enjoying stimulation for 16 days while the electrodes were in. However after removal of the electrodes the pain came back in about 1 month. 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 Previously he had few days of PNS trial after which lead was lost.? He reported almost a month of complete pain relief after that trial. We discussed the situation at hands. Unfortunately for the next 5 months I cannot perform anything for his spondylosis because the RFA considered to be ultimate procedure. Good knows that his pain after RFA is not full strength and he reports about 5/10 pain. He is disappointed that he does not have pain relieve 0 of 10 like he did the 1st few weeks after the procedure. 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 Surgical History Hx of inguinal hernia repair S/P placement of nerve stimulator Hx of surgical procedure Hx of cystoscopy Hx of lithotripsy Hx of right hemicolectomy Hx of colonoscopy Hx of esophagogastroduodenoscopy Family History Father Unknown family medical history Mother Unknown family medical history Social History Alcohol intake: never Patient Tobacco Use Status: Never used Tobacco Second Hand Smoke Exposure: No Advance Directives Date on File: 09/08/14 Current occupational status: disabled 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/ Review of Systems Const All systems reviewed & are unremarkable except as noted in HPI and below Physical Exam Vital Signs: Last Vital Signs Pulse 106 H 08/04/23 09:29 Resp 17 08/04/23 09:29 BP 140/68 H 08/04/23 09:29 Pulse Ox 97 08/04/23 09:29 Oxygen Delivery Method Room Air 08/04/23 09:29 BMI result Body Mass Index 33.5 Const General: cooperative, comfortable and no acute distress Nutritional Appearance: obese Orientation/consciousness: patient oriented x3 Limitations: no limitations HEENT Head: Yes normocephalic and Yes atraumatic Mouth: moist mucous membranes Eyes Eyelids: Yes eyelids normal Pupils: Equal, round and reactive pupils present EOM: EOMs intact bilaterally Neck Neck: Yes full ROM, Yes no lymphadenopathy and Yes no JVD Chest Chest palpation & inspection: normal inspection of the chest Resp Effort & Inspection: normal respiratory effort Cardio Jugular venous distension: no JVD Back/Spine/Pelvis Other: He is unable to stand on tiptoes with his right foot. I think there is certain objective weakness in the right lower extremity. It corresponds to results of the MRI which is dictated as below. Palpation of the bilateral lumbar spine in paraspinal regions reveals severe tenderness. Loading test is positive. Flexing forward does not affect his pain flexing backwards makes his pain very severe. Straight leg rising is negative for pain increase in the back neck. Lassegue is negative for pain increase. Thoracic/Lumbar Spine: No kyphosis and No Thoracic/lumbar scoliosis Skin General skin exam: no rashes or lesions noted and dry skin Neuro General: patient oriented x3, gait normal and moves all extremities Cranial nerves: Yes Equal, round and reactive pupils present Gait exam (Neuro): Normal gait present Motor exam (neuro): 5/5 motor strength present throughout Extrem General: Yes full ROM and Yes no clubbing, cyanosis or edema Psych Appearance: well kempt Mental Status: mental status grossly normal Attitude: cooperative Assessment & Plan Assessment & Plan (1) Arthropathy of facet joint: Code(s): M47.819 - Spondylosis without myelopathy or radiculopathy, site unspecified Plan Good results of implantation PNS curonix. Patient reports practically absence of pain. Minor discomfort from the wound sites the only thing which is bothering patient at this time. I explained to the patient limitations of the activities of daily living for the next 9 weeks. I will see him next week for staple removal. He will continue to were abdominal binder postoperatively for the next 9 weeks. This is just a reminder for him to avoid strenuous activities. Coding Level of Care Code Est Pt Level 3 (16637) Diagnoses Arthropathy of facet joint M47.819
[2023-08-04 09:29] VITALS: BP 140/68; PULSE 106; RESP 17; O2SAT 97; BMI 33.5
== END 2023-08-04 09:39 | disposition home or self-care (01) ==
PROVIDERS: PCP Internal Medicine; Visit Provider Anesthesiology
DX: M47.819 Spondylosis without myelopathy or radiculopathy, site unspecified (principal)
CPT/HCPCS: 99024

== ENCOUNTER → 2023-08-04 09:13 | Outpatient (BNVA) | payer MEDICARE, SELFPAY | PROVIDERS: PCP Internal Medicine; Visit Provider Anesthesiology | DX: M47.819 Spondylosis without myelopathy or radiculopathy, site unspecified (principal) | CPT/HCPCS: 99212 ==

== ENCOUNTER 2023-08-11 09:19 | Outpatient (AMB) | payer MEDICARE, SELFPAY ==
--- NOTE | 2023-08-11 09:29 | MHC.OFFVIS ---
Intake Vital Signs 08/11/23 09:30 Height 5 ft 7 in Weight 210 lb BMI 32.9 BP 144/61 H Blood Pressure Location Lt brachial Position Sitting Respiration 16 Pulse 95 Pulse Source Pulse Oximeter Pulse Oximetry (%) 96 Oxygen Delivery Method Room Air Intake Visit Reasons: S/p B/L L5 Curonix PNS IMPLANT/Confirmed Allergies No Known Allergies Allergy (Verified 08/11/23 09:29) HPI HPI Comments History of Present Illness Details Isaac is back in my office after the permanent implant of B/l curonix/freedom PNS bilaterally place at the both L5 position electrodes at the b/l confluence of the SAP and TP. He reports excellent pain relieve, he reports no pain in the lower back.. The dressing was removed today, the wounds are clean, leonardo are competent, no redness, no swelling, no pathological discharge , no local tenderness, reports minor itching, the wound was prepped with ChloraPrep and sterile dressing with bacitracin ointment was applied. Nome are removed today. Mobility limitations activities limitations were carefully explained to the patient. No NSAIDs and no steroids were reiterated to the patient. Relative of the patient who was present with him during the dressing change helped us to communicate. Proir: he received radiofrequency ablation of L3-L4 does ramus L5 medial branches. He reported absence of pain for 1st 3 weeks after the procedure. However now the pain is starting to come back. This is too early. The same situation is with his PNS bilateral L5. He was enjoying stimulation for 16 days while the electrodes were in. However after removal of the electrodes the pain came back in about 1 month. 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 Previously he had few days of PNS trial after which lead was lost.? He reported almost a month of complete pain relief after that trial. We discussed the situation at hands. Unfortunately for the next 5 months I cannot perform anything for his spondylosis because the RFA considered to be ultimate procedure. Good knows that his pain after RFA is not full strength and he reports about 5/10 pain. He is disappointed that he does not have pain relieve 0 of 10 like he did the 1st few weeks after the procedure. [facility] Medical History Right groin pain Right inguinal hernia On beta lala at home Hx SBO DM2 (diabetes mellitus, type 2) Disc degeneration, lumbar Chronic pain syndrome Spondylosis of lumbosacral spine with radiculopathy GERD (gastroesophageal reflux disease) Obesity (BMI 30-39.9) Hypertension 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 associated with type 2 diabetes mellitus rn long term care (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 Surgical History Hx of inguinal hernia repair S/P placement of nerve stimulator Hx of surgical procedure Hx of cystoscopy Hx of lithotripsy Hx of right hemicolectomy Hx of colonoscopy Hx of esophagogastroduodenoscopy Family History Father Unknown family medical history Mother Unknown family medical history Social History Alcohol intake: never Patient Tobacco Use Status: Never used Tobacco Second Hand Smoke Exposure: No Advance Directives Date on File: 09/08/14 Current occupational status: disabled 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/ Review of Systems Const All systems reviewed & are unremarkable except as noted in HPI and below Physical Exam Vital Signs: Last Vital Signs Pulse 95 08/11/23 09:30 Resp 16 08/11/23 09:30 BP 144/61 H 08/11/23 09:30 Pulse Ox 96 08/11/23 09:30 Oxygen Delivery Method Room Air 08/11/23 09:30 BMI result Body Mass Index 32.9 Const General: cooperative, comfortable and no acute distress Nutritional Appearance: obese Orientation/consciousness: patient oriented x3 Limitations: no limitations HEENT Head: Yes normocephalic and Yes atraumatic Mouth: moist mucous membranes Eyes Eyelids: Yes eyelids normal Pupils: Equal, round and reactive pupils present EOM: EOMs intact bilaterally Neck Neck: Yes full ROM, Yes no lymphadenopathy and Yes no JVD Chest Chest palpation & inspection: normal inspection of the chest Resp Effort & Inspection: normal respiratory effort Cardio Jugular venous distension: no JVD Back/Spine/Pelvis Other: He is unable to stand on tiptoes with his right foot. I think there is certain objective weakness in the right lower extremity. It corresponds to results of the MRI which is dictated as below. Palpation of the bilateral lumbar spine in paraspinal regions reveals severe tenderness. Loading test is positive. Flexing forward does not affect his pain flexing backwards makes his pain very severe. Straight leg rising is negative for pain increase in the back neck. Lassegue is negative for pain increase. Thoracic/Lumbar Spine: No kyphosis and No Thoracic/lumbar scoliosis Skin General skin exam: no rashes or lesions noted and dry skin Neuro General: patient oriented x3, gait normal and moves all extremities Cranial nerves: Yes Equal, round and reactive pupils present Gait exam (Neuro): Normal gait present Motor exam (neuro): 5/5 motor strength present throughout Extrem General: Yes full ROM and Yes no clubbing, cyanosis or edema Psych Appearance: well kempt Mental Status: mental status grossly normal Attitude: cooperative Assessment & Plan Assessment & Plan (1) Arthropathy of facet joint: Code(s): M47.819 - Spondylosis without myelopathy or radiculopathy, site unspecified Plan Good results of implantation PNS curonix. Patient reports practically absence of pain. Leonardo are removed today. Activities and mobility limitations are explained to the patient. Next appointment as needed. Coding Level of Care Code Est Pt Level 3 (31796) Diagnoses Arthropathy of facet joint M47.819
[2023-08-11 09:30] VITALS: BP 144/61; PULSE 95; RESP 16; O2SAT 96; BMI 32.9
== END 2023-08-11 09:50 | disposition home or self-care (01) ==
PROVIDERS: PCP Internal Medicine; Referring Provider Internal Medicine; Visit Provider Anesthesiology
DX: M47.819 Spondylosis without myelopathy or radiculopathy, site unspecified (principal)
CPT/HCPCS: 99213

== ENCOUNTER → 2023-08-11 09:19 | Outpatient (BNVA) | payer MEDICARE, SELFPAY | PROVIDERS: PCP Internal Medicine; Visit Provider Anesthesiology | DX: M47.819 Spondylosis without myelopathy or radiculopathy, site unspecified (principal) | CPT/HCPCS: 99212 ==

== ENCOUNTER 2023-10-11 10:51 | Outpatient (REF) | payer MEDICARE, SELFPAY ==
--- NOTE | ~2023-10-11 | XR_ITS ---
EXAMINATION: XR ABDOMEN KUB CLINICAL INDICATION: History of small bowel obstruction COMPARISON: CT abdomen pelvis 09/04/2022 KUB 11/12/2017 TECHNIQUE: AP view of the abdomen. FINDINGS: The colon is decompressed. Once again seen are multiple dilated loops of small bowel as seen on prior studies including the KUB from 11/12/2017. Metallic devices inserted by Dr. Lalo Cooper are present overlying the region of the lower lumbosacral spine XR/XR KUB IMPRESSION: Persistent small bowel dilatation.
== END 2023-10-11 10:52 | disposition home or self-care (01) ==
LOC: HO.XRAY 10:51
PROVIDERS: PCP Internal Medicine; Visit Provider Internal Medicine
DX: Z87.19 Personal history of other diseases of the digestive system (principal)
CPT/HCPCS: 74018

== ENCOUNTER 2023-10-27 10:55 | Outpatient (AMB) | payer MEDICARE, SELFPAY ==
--- NOTE | 2023-10-27 11:02 | MHC.OFFVIS ---
Intake Vital Signs 10/27/23 11:08 Height 5 ft 7 in Weight 215 lb BMI 33.7 BP 160/74 H Blood Pressure Location Lt brachial Position Sitting Pulse 101 H Intake Visit Reasons: abd pain, SBO (Dr. Haddad) Intake Note: Pt c/o: onset couple months ago, upper abdomen pain, admits to nausea after meals, bloating, diarrhea/constipation on/off, shortness of breath, denies any other concerns Knot Cutter Required: No Accompanied by: Other Relationship Allergies No Known Allergies Allergy (Verified 10/27/23 11:07) HPI HPI Comments History of Present Illness Details 73-year-old male patient presenting with complaints of abdominal distention and nausea. He has a prior history of a right colectomy on 02/09/2006 and a previous admission in 2019 for small-bowel obstruction which resolved non operatively. For the past month he is noted increased abdominal distension with decreased appetite and increased abdominal discomfort with eating. He is moving his bowels but they are somewhat loose. He denies any vomiting. An abdominal x-ray revealed distended loop of small bowel possibly due to a small-bowel obstruction. He is scheduled for an abdominal CT on 10/27/2023. 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 Surgical History Hx of inguinal hernia repair S/P placement of nerve stimulator Hx of surgical procedure Hx of cystoscopy Hx of lithotripsy Hx of right hemicolectomy Hx of colonoscopy Hx of esophagogastroduodenoscopy Family History Father Unknown family medical history Mother Unknown family medical history Social History Alcohol intake: never Patient Tobacco Use Status: Never used Tobacco Second Hand Smoke Exposure: No Advance Directives Date on File: 09/08/14 Current occupational status: disabled 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/ Review of Systems Const All systems reviewed & are unremarkable except as noted in HPI and below GI Reports abdominal pain, Reports bloating and Reports loose stools Physical Exam Vital Signs: Last Vital Signs Pulse 101 H 10/27/23 11:08 BP 160/74 H 10/27/23 11:08 BMI result Body Mass Index 33.7 Const General: no acute distress Nutritional Appearance: well nourished Orientation/consciousness: patient oriented x3 Resp Effort & Inspection: normal respiratory effort, no audible wheezes, no cough and no respiratory distress GI Inspection: Yes distended and Yes incision (Midline incision periumbilical) Palpation (GI): Soft to palpation, nontender, no guarding, not rigid and no hernias Percussion: Yes tympanic to percussion Auscultation: normal bowel sounds Abdomen image: 1. Incision midline from prior colectomy Skin General skin exam: no rashes or lesions noted Neuro General: patient oriented x3 Extrem General: Yes no clubbing, cyanosis or edema Assessment & Plan Assessment & Plan (1) Gas pain: Code(s): R14.1 - Gas pain (2) Partial small bowel obstruction: Code(s): K56.600 - Partial intestinal obstruction, unspecified as to cause Plan 73-year-old male patient with a previous history of colon surgery and small-bowel obstruction returning with complaints of abdominal distention and gas pain. Abdominal x-ray appears consistent with distension of small bowel suggestive of possible partial small-bowel obstruction. Examination does reveal distended abdomen with tympany to percussion. He does have bowel movements on a daily basis and is able to tolerate p.o. without vomiting. He is scheduled for a CT abdomen and pelvis this week. I will await the findings of this study and have him return to the office following the CT to review the results and discuss treatment options. He expressed understanding and agrees with the plan. Medications: New simethicone (Gas Relief (simethicone)) 125 mg PO BID-QID PRN 30 caps 0RF abdominal distention R14.1 - Gas pain Coding Level of Care Code New Pt Level 4 (37222) Diagnoses Gas pain R14.1 Partial small bowel obstruction K56.600
[2023-10-27 11:08] VITALS: BP 160/74; PULSE 101; BMI 33.7
== END 2023-10-27 11:25 | disposition home or self-care (01) ==
PROVIDERS: PCP Internal Medicine; Visit Provider Surgery
DX: R14.1 Gas pain (principal); K56.600 Partial intestinal obstruction, unspecified as to cause
CPT/HCPCS: 99203; 99213

== ENCOUNTER → 2023-10-27 10:55 | Outpatient (BNVA) | payer MEDICARE, SELFPAY | PROVIDERS: PCP Internal Medicine; Visit Provider Surgery | DX: R14.1 Gas pain (principal); K56.600 Partial intestinal obstruction, unspecified as to cause | CPT/HCPCS: 99202 ==

== ENCOUNTER 2023-11-03 08:32 | Outpatient (REF) | payer MEDICARE, SELFPAY ==
--- NOTE | ~2023-11-03 | CT_ITS ---
EXAMINATION: CT ABDOMEN AND PELVIS WITHOUT CONTRAST CLINICAL INFORMATION: History of small bowel obstruction. COMPARISON: KUB 10/11/[address] abdomen and pelvis 09/04/2022. TECHNIQUE: Multidetector volumetric imaging was performed from the superior aspect of the liver through the pubic symphysis. Sagittal and coronal reformatted images were obtained on the technologist's workstation. This CT examination was performed using dose optimization techniques as appropriate, variously including the following: *Automated exposure control *Adjustment of mA and/or kV according to patient size (this includes techniques or standardized protocols for targeted exams where dose is matched to indication/reason for exam; i.e. extremities or head) *Use of iterative reconstruction technique DLP: 624 mGy-cm FINDINGS: LUNG BASES: The visualized lung bases are unremarkable. LIVER, GALLBLADDER, AND BILIARY TREE: The liver is normal in size, shape, and attenuation. No focal hepatic lesion or biliary ductal dilatation is present. The gallbladder is unremarkable with no evidence of radiopaque gallstones, gallbladder wall thickening, or obvious pericholecystic inflammatory changes. PANCREAS: Unremarkable. SPLEEN: Unremarkable. ADRENAL GLANDS: Unremarkable. KIDNEYS AND URETERS: The kidneys are normal in size, shape, and attenuation. 2 nonobstructing calculi are present in the left kidney the largest measuring 4 mm. No hydronephrosis, hydroureter, or right-sided/ureteral calculi seen. No perinephric stranding. BLADDER: Unremarkable. GASTROINTESTINAL TRACT: Status post right hemicolectomy. Anastomosis is widely patent. There is some mild gaseous distention of distal small bowel loops but no evidence of definite mechanical obstruction. The largest loops measure about 4 cm slightly increased when compared to prior. Transition between loops of bowel can be seen in the right mid abdomen (3:47-54). The colon is decompressed. The appendix is no longer present. ABDOMINAL WALL: Tiny bilateral inguinal hernias containing only fat. LYMPH NODES: No retroperitoneal lymphadenopathy. VASCULAR: Unremarkable. PELVIC VISCERA: Prostate and seminal vesicles appear normal. Trace fluid in the pelvis. OSSEOUS STRUCTURES: Unremarkable. CT/CT abdomen pelvis wo IV con IMPRESSION: 1. Status post right hemicolectomy with widely patent anastomosis. 2. Mild gaseous distention of distal small bowel loops with transition between loops of bowel in the right mid abdomen. Findings are suggestive of a partial small bowel obstruction. 3. Nonobstructing left renal calculi. Fleischner guidelines were followed.
== END 2023-11-03 08:33 | disposition home or self-care (01) ==
LOC: HO.CT 08:32
PROVIDERS: PCP Internal Medicine; Visit Provider Internal Medicine
DX: Z87.19 Personal history of other diseases of the digestive system (principal)
CPT/HCPCS: 74176

== ENCOUNTER 2023-11-11 09:45 | Outpatient (AMB) | payer MEDICARE, SELFPAY ==
--- NOTE | 2023-11-11 10:19 | A.OFFVIS_ITS ---
Intake Vital Signs 11/11/23 10:21 Height 5 ft 7 in Weight 218 lb BMI 34.1 BP 188/91 H Blood Pressure Location Lt brachial Position Sitting Pulse 80 Intake Visit Reasons: discuss CT scan, abdominal pain Intake Note: Patient is seen in office for discuss CT scan results, following abdominal pain. 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 He has a prior history of a right colectomy on 02/09/2006 and a previous admission in 2019 for small-bowel obstruction which resolved non operatively. For the past month he is noted increased abdominal distension with decreased appetite and increased abdominal discomfort with eating. He is moving his bowels but they are somewhat loose. He denies any vomiting. An abdominal x-ray revealed distended loop of small bowel possibly due to a small-bowel obstruction. He returns today following his CT abdomen and pelvis performed on 11/03/2023. The results were reviewed with the patient today in detail. This does reveal a widely patent ileocecal anastomosis in the right upper quadrant. There is some evidence of dilatation of the small bowel with a slight narrowing proximal to the anastomosis. This may be suggestive of a partial obstruction. Since his last visit he reports generally feeling improved with decreased abdominal pain but occasional bloating. He is passing gas and stool roughly every other day and denies any nausea or vomiting. He denies any bleeding per rectum. [facility] Medical History Right groin pain Right inguinal hernia On beta lala at home Hx SBO DM2 (diabetes mellitus, type 2) Disc degeneration, lumbar Chronic pain syndrome Spondylosis of lumbosacral spine with radiculopathy GERD (gastroesophageal reflux disease) Obesity (BMI 30-39.9) Hypertension 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 associated with type 2 diabetes mellitus [facility] (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 Surgical History Hx of inguinal hernia repair S/P placement of nerve stimulator Hx of surgical procedure Hx of cystoscopy Hx of lithotripsy Hx of right hemicolectomy Hx of colonoscopy Hx of esophagogastroduodenoscopy Family History Father Unknown family medical history Mother Unknown family medical history Social History Alcohol intake: never Patient Tobacco Use Status: Never used Tobacco Second Hand Smoke Exposure: No Advance Directives Date on File: 09/08/14 Current occupational status: disabled 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/ Physical Exam Vital Signs: Last Vital Signs Pulse 80 11/11/23 10:21 BP 188/91 H 11/11/23 10:21 BMI result Body Mass Index 34.1 Const General: no acute distress Nutritional Appearance: well nourished Orientation/consciousness: patient oriented x3 Resp Effort & Inspection: normal respiratory effort, no audible wheezes, no cough and no respiratory distress GI Inspection: Yes distended and Yes incision (Midline incision periumbilical) Palpation (GI): Soft to palpation, nontender, no guarding, not rigid and no hernias Percussion: Yes tympanic to percussion Auscultation: normal bowel sounds Skin General skin exam: no rashes or lesions noted Neuro General: patient oriented x3 Extrem General: Yes no clubbing, cyanosis or edema Assessment & Plan Assessment & Plan (1) Partial small bowel obstruction: Code(s): K56.600 - Partial intestinal obstruction, unspecified as to cause Plan 73-year-old male returning following his recent CT abdomen and pelvis. CT does reveals some dilated loops of small bowel possibly due to a partial small-bowel obstruction. The anastomosis however is widely patent with no evidence of mechanical obstruction. An area is noted slightly proximal to this however which may be narrowed. We discussed possible revision of this anastomosis if his symptoms seem to worsen although at this time I would recommend observation as in general he is feeling improved. He expressed understanding and agrees with the plan. He will call should his symptoms worsen including nausea, vomiting, abdominal pain or bloating. Coding Level of Care Code Est Pt Level 3 (26982) Diagnoses Partial small bowel obstruction K56.600
[2023-11-11 10:21] VITALS: BP 188/91; PULSE 80; BMI 34.1
== END 2023-11-11 10:59 | disposition home or self-care (01) ==
PROVIDERS: PCP Internal Medicine; Visit Provider Surgery
DX: K56.600 Partial intestinal obstruction, unspecified as to cause (principal)
CPT/HCPCS: 99213

== ENCOUNTER → 2023-11-11 09:45 | Outpatient (BNVA) | payer MEDICARE, SELFPAY | PROVIDERS: PCP Internal Medicine; Visit Provider Surgery | DX: K56.600 Partial intestinal obstruction, unspecified as to cause (principal); Z90.49 Acquired absence of other specified parts of digestive tract | CPT/HCPCS: 99212 ==

== ENCOUNTER 2023-12-14 10:44 | Outpatient (REF) | payer MEDICARE, SELFPAY ==
--- NOTE | ~2023-12-14 | US_ITS ---
EXAMINATION: US PELVIS LIMITED (BLADDER) CLINICAL INFORMATION: Poor urinary stream. COMPARISON: CT abdomen and pelvis 11/03/2023. X-ray abdomen KUB 10/11/2023 and 11/12/2017. TECHNIQUE: Real-time imaging of the bladder. FINDINGS: BLADDER: Well distended and unremarkable. Bilateral ureteral jets are demonstrated. Prevoid bladder volume is 204 mL. Postvoid bladder volume is 52.0 mL. The prostate volume is 16.9 mL. US/US bladder IMPRESSION: Postvoid bladder volume is 52 mL.
== END 2023-12-14 10:45 | disposition home or self-care (01) ==
LOC: HO.US 10:44
PROVIDERS: PCP Internal Medicine; Visit Provider Urology
DX: R39.12 Poor urinary stream (principal); N40.1 Benign prostatic hyperplasia with lower urinary tract symptoms; N13.8 Other obstructive and reflux uropathy
CPT/HCPCS: 76857

== ENCOUNTER 2023-12-20 08:31 | Outpatient (AMB) | payer MEDICARE, SELFPAY ==
--- NOTE | 2023-12-20 08:42 | A.OFFVIS_ITS ---
Intake Visit Reasons: 6m/US/PVR(CT Set) Intake Note: Patient is Present for PVR/ Urology Med: Finasteride, Terazosin Antibiotic Allergy: None Blood Thinner:Aspirin Last PVR: 39 Todays PVR: 62 Allergies No Known Allergies Allergy (Verified 11/11/23 10:20) Medication List - Last Reconciled 12/20/23 by Rafita Garland MD acarbose 75 mg (1.5 x 50 mg) PO TID 90 days aspirin (Adult Low Dose Aspirin) 81 mg PO DAILY atorvastatin 40 mg PO DAILY buprenorphine-naloxone 2-0.5 mg (Suboxone) 1 film buccal DAILY celecoxib (Celebrex) 200 mg PO BID 30 days cephalexin 1,000 mg (2 x 500 mg) PO Q8H 7 days finasteride 5 mg PO DAILY 90 days hydralazine 100 mg PO TID hydromorphone 2 mg PO Q4H PRN 8 days MDD 6 pills insulin glargine (Lantus Solostar U-100 Insulin) 15 units (0.15 mL) subcut QAM 90 days lifitegrast 5% (Xiidra) 1 drp ophthalmic (eye) BID metformin 500 mg PO DAILY omeprazole 20 mg PO BID OneTouch Verio Meter (blood-glucose meter) 3 times a day NS OneTouch Verio test strips (blood sugar diagnostic) 3 times a day NS pen needle, diabetic (BD Theresa 2nd Gen Pen Needle) once a day simethicone (Gas Relief (simethicone)) 125 mg PO BID-QID PRN terazosin 5 mg PO BEDTIME 90 days HPI Comments Details: Isaac is a pleasant male. He is seen for the following urologic condition. - lower urinary tract symptoms Yearly review PVR 60 cc UA negative Continue good effect from medications Known large trilobar hypertrophy Continue finasteride - review in 4 months for GreenLight laser Lower urinary tract symptoms Longstanding lower urinary tract symptoms Good response to combination therapy Current therapy Flomax 0.8 mg. Finasteride Persistent nocturia 2-3 times at night Cystoscopy large trilobar hypertrophy 2019 PSA 01/25 3.25, 01/26 3.0, 11/27 1.3, 01/27 1.3, 01/28 0.6 PFSH Medical History Right groin pain Right inguinal hernia On beta lala at home Hx SBO DM2 (diabetes mellitus, type 2) Disc degeneration, lumbar Chronic pain syndrome Spondylosis of lumbosacral spine with radiculopathy GERD (gastroesophageal reflux disease) Obesity (BMI 30-39.9) Hypertension 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 associated with type 2 diabetes mellitus halfway (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 Surgical History Hx of inguinal hernia repair S/P placement of nerve stimulator Hx of surgical procedure Hx of cystoscopy Hx of lithotripsy Hx of right hemicolectomy Hx of colonoscopy Hx of esophagogastroduodenoscopy Family History Father Unknown family medical history Mother Unknown family medical history Social History Alcohol intake: never Patient Tobacco Use Status: Never used Tobacco Second Hand Smoke Exposure: No Advance Directives Date on File: 09/08/14 Current occupational status: disabled 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/ Review of Systems Const Denies chills and Denies fever(s) Card Reports no additional complaints and Denies syncope Resp Denies cough GI Denies abdominal pain and Denies heartburn Reports as per HPI and Denies change in libido Neuro Denies syncope Psych Denies change in libido Endo Denies change in libido Physical Exam Const General: cooperative, healthy appearing, comfortable and no acute distress Orientation/consciousness: patient oriented x3 HEENT Face and sinus: Yes normal facial exam Mouth: moist mucous membranes Neck Neck: Yes normal visual inspection, Yes full ROM and Yes trachea midline Chest Chest palpation & inspection: normal inspection of the chest Resp Effort & Inspection: normal respiratory effort, able to speak in complete sentences and no respiratory distress GI Inspection: Yes normal to inspection Back/Spine/Pelvis Cervical Spine: normal cervical lordosis Thoracic/Lumbar Spine: thoracic and lumbar spine normal to inspection Skin General skin exam: no rashes or lesions noted Neuro General: patient oriented x3, gait normal, tone normal and moves all extremities Extrem General: Yes normal to inspection and Yes capillary refill normal Office Procedures Post Void Residual Post Residual Void Post Void Residual (PVR): 62 [id number] Void Residual by ultrasound Assessment & Plan Assessment & Plan (1) BPH w urinary obs/LUTS: Code(s): N40.1 - Benign prostatic hyperplasia with lower urinary tract symptoms; N13.8 - Other obstructive and reflux uropathy Category: Medical Plan Four month follow-up assessment for GreenLight laser Orders: Orders AMB Post Void Residual by ultrasound Today N13.8 - Other obstructive and reflux uropathy, N40.1 - Benign prostatic hyperplasia with lower urinary tract symptoms Medications: Refilled finasteride 5 mg PO DAILY 90 days 90 tabs 3RF N13.8 - Other obstructive and reflux uropathy, N40.1 - Benign prostatic hyperplasia with lower urinary tract symptoms Patient Instructions: Imaging studies, laboratory and physical exam results were discussed and reviewed in detail. No major barriers to patient understanding were identified. An opportunity to ask questions regarding the treatment plan was provided. All questions were answered. The patient expressed understanding and agreement with the above treatment plan. The patient is aware they should contact our office by phone for worsening of their current condition or the appearance of new urologic symptoms. Compliance is encouraged with any medications and followup testing that is ordered. It is a privilege to participate in the urologic care of your patient. If you have any questions or concerns regarding treatment for the above conditions, or other urologic issues, please do not hesitate to contact me. The office telephone contact is [phone]. This note is constructed using voice recognition software. While every effort has been made to ensure accuracy farmworker poultry errors may have been included. Yours sincerely, Dr Rafita Garland MD, [facility] - Urology Providers of Expert, Compassionate Care for the Genitourinary System Coding Level of Care Code Est Pt Level 4 (07987) Diagnoses BPH w urinary obs/LUTS N40.1; N13.8 CPT Codes Post Residual Void - PVR CPT Code: [id number]-[id number] Void Residual by ultrasound ([id number])
== END 2023-12-20 09:03 | disposition home or self-care (01) ==
PROVIDERS: PCP Internal Medicine; Visit Provider Urology
DX: N40.1 Benign prostatic hyperplasia with lower urinary tract symptoms (principal); N13.8 Other obstructive and reflux uropathy
CPT/HCPCS: 99214

== ENCOUNTER → 2023-12-20 08:31 | Outpatient (BNVA) | payer MEDICARE, SELFPAY | PROVIDERS: PCP Internal Medicine; Visit Provider Urology | DX: N40.1 Benign prostatic hyperplasia with lower urinary tract symptoms (principal); N13.8 Other obstructive and reflux uropathy; Z79.899 Other long term (current) drug therapy | CPT/HCPCS: 51798; 99212 ==

== ENCOUNTER 2024-01-16 09:39 | Outpatient (AMB) | payer MEDICARE, SELFPAY ==
--- NOTE | 2024-01-16 09:43 | MHC.OFFVIS ---
Vital Signs 01/16/24 09:51 Height 5 ft 7 in Weight 207 lb 8 oz BMI 32.5 BP 160/84 H Blood Pressure Location Lt brachial Position Sitting Respiration 14 Pulse 63 Pulse Source Pulse Oximeter Pulse Oximetry (%) 98 Oxygen Delivery Method Room Air Intake Visit Reasons: PNS Implant Intake Note: Patient comes in to discuss PNS. Reports pain 08/17. Allergies No Known Allergies Allergy (Verified 11/11/23 10:20) HPI Comments Details: Isaac is back in my office to discuss bilateral knee pain as well as his stimulation of the B/l curonix/freedom PNS bilaterally place at the both L5 position electrodes at the b/l confluence of the SAP and TP. He reports excellent pain relieve, he reports no pain in the lower back.. He is concerned that unlike the sprint PNS he does not feel any significant vibration or paresthesia sensation with the device. I told him that possibility exists that these devices acting on high-frequency and that sensation he will not be able to apprehend. For further questions I directed him to [employer] printing supplies sales representative. He also complains on pain on bilateral knees on posterior surfaces of the both knees. He reports severe pain with knee extension. Physical examination see as below. With diagnosis of bilateral knee pain I will send him for the x-ray of the bilateral knees four views. I will see him in 2 weeks after the x-ray will be read. Proir: he received radiofrequency ablation of L3-L4 does ramus L5 medial branches. He reported absence of pain for 1st 3 weeks after the procedure. However now the pain is starting to come back. This is too early. The same situation is with his PNS bilateral L5. He was enjoying stimulation for 16 days while the electrodes were in. However after removal of the electrodes the pain came back in about 1 month. 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 Previously he had few days of PNS trial after which lead was lost.? He reported almost a month of complete pain relief after that trial. . 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 Surgical History Hx of inguinal hernia repair S/P placement of nerve stimulator Hx of surgical procedure Hx of cystoscopy Hx of lithotripsy Hx of right hemicolectomy Hx of colonoscopy Hx of esophagogastroduodenoscopy Family History Father Unknown family medical history Mother Unknown family medical history Social History Alcohol intake: never Patient Tobacco Use Status: Never used Tobacco Second Hand Smoke Exposure: No Advance Directives Date on File: 09/08/14 Current occupational status: disabled 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/ Review of Systems Const All systems reviewed & are unremarkable except as noted in HPI and below Physical Exam Vital Signs: Last Vital Signs Pulse 63 01/16/24 09:51 Resp 14 01/16/24 09:51 BP 160/84 H 01/16/24 09:51 Pulse Ox 98 01/16/24 09:51 Oxygen Delivery Method Room Air 01/16/24 09:51 BMI result Body Mass Index 32.5 Const General: cooperative, comfortable and no acute distress Nutritional Appearance: obese Orientation/consciousness: patient oriented x3 Limitations: no limitations HEENT Head: Yes normocephalic and Yes atraumatic Mouth: moist mucous membranes Eyes Eyelids: Yes eyelids normal Pupils: Equal, round and reactive pupils present EOM: EOMs intact bilaterally Neck Neck: Yes full ROM, Yes no lymphadenopathy and Yes no JVD Chest Chest palpation & inspection: normal inspection of the chest Resp Effort & Inspection: normal respiratory effort Cardio Jugular venous distension: no JVD Back/Spine/Pelvis Other: Palpation of the bilateral lumbar spine in paraspinal regions reveals no tenderness on exam today. Loading test is negative. Flexing forward and flexing backwards do not affect his pain.. Straight leg rising is negative for pain increase in the back neck. Lassegue is negative for pain increase. Thoracic/Lumbar Spine: No kyphosis and No Thoracic/lumbar scoliosis Skin General skin exam: no rashes or lesions noted and dry skin Neuro General: patient oriented x3, gait normal and moves all extremities Cranial nerves: Yes Equal, round and reactive pupils present Gait exam (Neuro): Normal gait present Motor exam (neuro): 5/5 motor strength present throughout Extrem Other: There is sensation of fullness with palpation of the posterior surface of the left knee but not the right 1. The patient complains on pain in the both knees. Range of motion is limited, he reports extension of bilateral knees causes severe discomfort. Anterior and posterior drawers are negative. Lateral collateral and medial collateral ligaments are stable on exam bilaterally. General: Yes full ROM and Yes no clubbing, cyanosis or edema Psych Appearance: well kempt Mental Status: mental status grossly normal Attitude: cooperative Assessment & Plan Assessment & Plan (1) Posterior left knee pain: Code(s): M25.562 - Pain in left knee Category: Medical (2) Arthropathy of facet joint: Code(s): M47.819 - Spondylosis without myelopathy or radiculopathy, site unspecified Category: Medical (3) Spondylosis of lumbar region without myelopathy or radiculopathy: Code(s): M47.816 - Spondylosis without myelopathy or radiculopathy, lumbar region Category: Medical Plan Good results of implantation PNS curonix. Patient reports practically absence of pain. He is concerned about absence of the stimulation sensation such as vibration in paresthesia. I explained to him as long as he feels good pain relief his device is working. If he has further questions or concerns he may address it to [employer] printing supplies sales representative. I will send him for x-ray of the bilateral knees. The diagnosis is bilateral knee pain probably Goode's cyst on the left. I will see him in 2 weeks after the x-ray will be read. Orders: Orders XR knee RT 4V Today M25.561 - Pain in right knee, M25.562 - Pain in left knee XR knee LT 4V Today M25.562 - Pain in left knee Patient Instructions: I here by testify that I spent 30 minutes in conversation with this patient as well as planning his care and organizing this note. Coding Level of Care Code Est Pt Level 4 (98781) Diagnoses Posterior left knee pain M25.562 Arthropathy of facet joint M47.819 Spondylosis of lumbar region without myelopathy or radiculopathy M47.816
[2024-01-16 09:51] VITALS: BP 160/84; PULSE 63; RESP 14; O2SAT 98; BMI 32.5
== END 2024-01-16 10:02 | disposition home or self-care (01) ==
PROVIDERS: PCP Internal Medicine; Visit Provider Anesthesiology
DX: M25.562 Pain in left knee (principal); M47.819 Spondylosis without myelopathy or radiculopathy, site unspecified; M47.816 Spondylosis without myelopathy or radiculopathy, lumbar region
CPT/HCPCS: 99214

== ENCOUNTER → 2024-01-16 09:39 | Outpatient (BNVA) | payer MEDICARE, SELFPAY | PROVIDERS: PCP Internal Medicine; Visit Provider Anesthesiology | DX: M25.562 Pain in left knee (principal); M47.819 Spondylosis without myelopathy or radiculopathy, site unspecified; M47.816 Spondylosis without myelopathy or radiculopathy, lumbar region | CPT/HCPCS: 99212 ==

== ENCOUNTER 2024-01-18 10:43 | Outpatient (AMB) | payer MEDICARE, SELFPAY ==
--- NOTE | 2024-01-18 10:48 | HO.NEPHOV_ITS ---
Vital Signs 01/18/24 10:51 Height 5 ft 7 in Weight 209 lb 8 oz BMI 32.8 BP 134/80 Blood Pressure Location Lt brachial Position Sitting Pulse 68 Pulse Source Pulse Oximeter Pulse Oximetry (%) 98 Oxygen Delivery Method Room Air Intake Visit Reasons: CKD/ Conf Intake Note: [employer] Worker Apprentice services refused, refusal form signed and scanned into chart. [employer] Worker Apprentice Required: Yes Accompanied by: Son Allergies No Known Allergies Allergy (Verified 01/18/24 10:55) HPI Comments Details: I had the pleasure of seeing Iasac in follow up of his hypertension. His blood pressure is well controlled on current medication regimen. He is a diabetic and monitors blood sugar closely. He has not lost a lot of weight. He denies chest pain, shortness of breath, nausea, vomiting, diarrhea, edema , urinary or orthostatic symptoms. 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 Surgical History Hx of inguinal hernia repair S/P placement of nerve stimulator Hx of surgical procedure Hx of cystoscopy Hx of lithotripsy Hx of right hemicolectomy Hx of colonoscopy Hx of esophagogastroduodenoscopy Family History Father Unknown family medical history Mother Unknown family medical history Social History Alcohol intake: never Patient Tobacco Use Status: Never used Tobacco Second Hand Smoke Exposure: No Advance Directives Date on File: 09/08/14 Current occupational status: disabled 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/ Review of Systems Const All systems reviewed & are unremarkable except as noted in HPI and below Physical Exam Vital Signs: Last Vital Signs Pulse 68 01/18/24 10:51 BP 134/80 01/18/24 10:51 Pulse Ox 98 01/18/24 10:51 Oxygen Delivery Method Room Air 01/18/24 10:51 BMI result Body Mass Index 32.8 Const General: comfortable and no acute distress Orientation/consciousness: patient oriented x3 HEENT Head: Yes normocephalic Mouth: Normal oral and palatal mucosa present Eyes EOM: EOMs intact bilaterally Neck Neck: Yes supple Resp Auscultation: clear to auscultation bilaterally Cardio Jugular venous distension: no JVD Rate: regular rate GI Palpation (GI): Soft to palpation Auscultation: normal bowel sounds General: Yes no CVA tenderness Back/Spine/Pelvis Back: no CVA tenderness Skin General skin exam: no rashes or lesions noted Neuro General: patient oriented x3 and moves all extremities Extrem General: Yes no pedal edema Results Reviewed Nephrology Results: No Data to Display Assessment & Plan Assessment & Plan (1) Essential hypertension: Code(s): I10 - Essential (primary) hypertension Category: Medical Plan Isaac has long standing hypertension. His blood pressure is well controlled on current medication regimen. He is a diabetic. He is on Cozaar. He has no retinopathy or CHF. I have ordered urine protein and renal function. He needs to loose weight. He is going to have TURP this year. No medication changes made . All questions answered. Follow up appointment given Medications: Changed From hydralazine 100 mg PO TID To hydralazine 100 mg PO TID 90 days 270 tabs 3RF Coding Level of Care Code Est Pt Level 4 (24686) Diagnoses Essential hypertension I10
[2024-01-18 10:51] VITALS: BP 134/80; PULSE 68; O2SAT 98; BMI 32.8
== END 2024-01-18 11:16 | disposition home or self-care (01) ==
PROVIDERS: PCP Internal Medicine; Visit Provider Internal Medicine Nephrology
DX: I10 Essential (primary) hypertension (principal)
CPT/HCPCS: 99214

== ENCOUNTER 2024-01-18 11:32 | Outpatient (REF) | payer MEDICARE, SELFPAY ==
[2024-01-18 13:48] LABS: Anion Gap 9 (12-20); Blood Urea Nitrogen 11 mg/dL (9-16); Calcium 9.4 mg/dL (8.4-10.2); Carbon Dioxide 31 mmol/L (22-29); Chloride 101 mmol/L (96-108); Estimated Glomerular Filt Rate > 60; Potassium 4.2 mmol/L (3.3-5.1); Sodium 137 mmol/L (135-145)
[2024-01-18 14:40] LABS: Protein/Creatinine Ratio, Ur 0.05 (<0.2); Total Protein Urine Random 8 mg/dL (<12)
== END 2024-01-18 11:33 | disposition home or self-care (01) ==
LOC: HO.10HDL 11:32
PROVIDERS: Visit Provider Internal Medicine Nephrology
DX: I10 Essential (primary) hypertension (principal)
CPT/HCPCS: 36415; 80051; 82310; 82565; 82570; 84156; 84520; 99212

== ENCOUNTER 2024-01-27 10:41 | Outpatient (REF) | payer MEDICARE, SELFPAY ==
[2024-01-27 10:44] LABS: MANUAL DIFF FLAG NO
[2024-01-27 10:59] LABS: Basophils Percent Auto 0.4 % (0-2); Eosinophils Absolute Auto 0.1 X10*3/uL (0.0-0.4); Eosinophils Percent Auto 1.6 % (0-4); Hematocrit 34.3 % (42.0-52.0); Hemoglobin 11.2 g/dl (14.0-18.0); Imm Gran Abs Auto 0.02 X10*3/uL (0.00-0.03); Imm Gran Pct Auto 0.3 % (0.0-0.4); Lymphocytes Absolute Auto 1.7 X10*3/uL (1.2-4.9); Lymphocytes Percent Auto 24.1 % (20-40); Mean Corpuscular HGB Conc 32.7 g/dl (31.0-36.0); Mean Corpuscular Volume 85.8 fL (80.0-98.0); Monocytes Absolute Auto 0.6 X10*3/uL (0.1-1.2); Monocytes Percent Auto 8.8 % (2-11); Neutrophils Absolute Auto 4.5 x10*3/uL (2.0-8.3); Neutrophils Percent Auto 64.8 % (45-73); Platelet Count 231 X10*3/uL (160-400); Red Cell Distribution Width 14.2 % (11.0-16.0)
[2024-01-27 11:05] LABS: Estimated Average Glucose 217 mg/dL; Hemoglobin A1c % 9.2 % (<6.0)
[2024-01-27 11:21] LABS: Alanine Aminotransferase 15 U/L (0-40); Albumin Level 3.9 g/dL (3.5-5.0); Alkaline Phosphatase 61 U/L (39-117); Anion Gap 12 (12-20); Aspartate Amino Transferase 19 U/L (5-37); Bilirubin Total 0.6 mg/dL (0.0-1.0); Blood Urea Nitrogen 11 mg/dL (9-16); Calcium 9.3 mg/dL (8.4-10.2); Carbon Dioxide 29 mmol/L (22-29); Chloride 104 mmol/L (96-108); Cholesterol 119 mg/dL (<200); Estimated Glomerular Filt Rate > 60; Glucose Fasting 139 mg/dL (60-99); HDL Cholesterol 55 mg/dL (>40); LDL Cholesterol Calculated 52 mg/dL (<100); Potassium 3.6 mmol/L (3.3-5.1); Sodium 141 mmol/L (135-145); Total Protein 6.9 g/dL (6.5-8.0); Triglycerides 61 mg/dL (<150)
[2024-01-27 11:30] LABS: PSA,Total (Free>4and<10) 1.31 ng/mL (0.00-4.00)
[2024-01-27 12:01] LABS: Appearance Urine Clear; Color Urine Yellow; Glucose Urine UA Negative (Negative); Leukocyte Esterase Urine Negative (Negative); Nitrite Urine Negative (Negative); PH 7.5 (5.0-9.0); Specific Gravity - Urine 1.015 (1.005-1.025); Urine Blood Negative (Negative); Urine Ketones Negative (Negative); Urine Protein Negative (Neg-Trace)
[2024-01-27 12:10] LABS: Bacteria Urine None Seen (None Seen); Hyaline Casts Urine 0-2 /LPF (0-2); RBC Urine 0-2 /HPF (0-2); Squamous Epithelial Cell Urine 0-2 /HPF (0-2); WBC Urine 0-5 /HPF (0-5)
[2024-01-27 12:28] LABS: Microalbumin Urine < 5.0 mg/L
== END 2024-01-27 10:42 | disposition home or self-care (01) ==
LOC: HO.LNP 10:41
PROVIDERS: Visit Provider Internal Medicine
DX: Z00.00 Encounter for general adult medical examination without abnormal findings (principal); I10 Essential (primary) hypertension; N40.0 Benign prostatic hyperplasia without lower urinary tract symptoms; E78.00 Pure hypercholesterolemia, unspecified; E11.9 Type 2 diabetes mellitus without complications; Z12.5 Encounter for screening for malignant neoplasm of prostate
CPT/HCPCS: 80053; 80061; 81001; 82043; 82570; 83036; 84153; 85025

== ENCOUNTER 2024-01-30 12:10 | Emergency (ER) | payer MEDICARE, SELFPAY ==
--- NOTE | ~2024-01-30 | CT_ITS ---
EXAMINATION: CT ANGIOGRAM HEAD CT ANGIOGRAM NECK CLINICAL INFORMATION: Reason for Exam Dizziness with neck pain./vertebral artery stenos COMPARISON: Same day CT head without contrast, MRI of the brain without contrast 10/25/2021 TECHNIQUE: Initial noncontrast cafe helper imaging of the head and neck was performed. Comparison is made with noncontrast head CT from earlier today. Test bolus sequences followed by intravenous administration 70 mL of Omnipaque 350. Helical imaging was performed in the axial plane from the aortic arch to the skull vertex. Delayed postcontrast imaging of the head was also performed. The data was processed at the public health technologist workstation for generation of MIP sequences. Angled MIPs and volume rendered reformatted images were also generated at an offline 3D workstation. Stenoses are assessed in accordance with NASCET criteria unless otherwise indicated. DLP: 1555 mGy-cm This CT examination was performed using dose optimization techniques as appropriate, variously including the following: *Automated exposure control. *Adjustment of mA and/or kV according to patient size (this includes techniques or standardized protocols for targeted exams where dose is matched to indication/reason for exam; i.e. extremities or head). *Use of iterative reconstruction technique. FINDINGS: CT Head: There is no evidence of acute intracranial hemorrhage or edematous territorial infarction. A few foci of hypoattenuation in the periventricular and deep white matter are consistent with mild microangiopathy. Hypodensities in the basal ganglia correspond to enlarged perivascular spaces. Bradford-white matter differentiation is preserved. The ventricles are normal in size and configuration. No evidence for obstructive hydrocephalus. No abnormal mass effect or midline shift. No extra-axial fluid collections. No pathologic intra-axial enhancement or regional oligemia. No acute soft tissue or osseous abnormalities. The mastoid air cells and paranasal sinuses are clear. CT Neck: The thyroid gland and remaining cervical soft tissues are within normal limits. No significant abnormality of the cervical spine. CT Upper Chest: The visualized lung apices and upper mediastinum are within normal limits. Neck CTA: Aortic Arch: Normal contour and caliber. Classic 3 vessel branching pattern of the aortic arch. Great Vessel Origins: No significant stenosis of the branch origins. Right Common Carotid Artery: No focal stenosis or occlusion. Cervical Right Internal Carotid Artery: Mild calcific atherosclerotic disease of the carotid bulb and proximal internal carotid artery without flow-limiting stenosis. Left Common Carotid Artery: No focal stenosis or occlusion. Cervical Left Internal Carotid Artery: Calcific atherosclerotic disease of the carotid bulb and proximal internal carotid artery causing less than 50% stenosis. Cervical Right Vertebral Artery: No focal stenosis or occlusion. Cervical Left Vertebral Artery: No focal stenosis or occlusion. Brain CTA: Intracranial Internal Carotid Arteries: No focal stenosis or occlusion. Right Anterior Cerebral Artery: Normal A1 segment. Normal opacification of the distal AMADA segments. Left Anterior Cerebral Artery: Normal A1 segment. Normal opacification of the distal AMADA segments. Anterior Communicating Artery: Normal. Right Middle Cerebral Artery: Normal M1 segment of the MCA without focal stenosis or occlusion. Normal arborization of the distal segments. Left Middle Cerebral Artery: Normal M1 segment of the MCA without focal stenosis or occlusion. Normal arborization of the distal segments. Right Vertebral Artery: Normal V4 segment. Left Vertebral Artery: Normal V4 segment. Basilar Artery: Normal without focal stenosis or occlusion. Normal appearance of the proximal superior cerebellar arteries. Right Posterior Cerebral Artery: Normal P1 segment. Normal opacification of the distal INFORMATICS PHARMACIST segments. Left Posterior Cerebral Artery: Normal P1 segment. Normal opacification of the distal INFORMATICS PHARMACIST segments. Normal opacification of the superior sagittal, straight, transverse, and sigmoid sinuses. CT/CT angio head neck IMPRESSION: No arterial high grade stenosis or large vessel occlusion in the head or neck. No evidence of arterial dissection.
--- NOTE | ~2024-01-30 | CT_ITS ---
EXAMINATION: CT HEAD WITHOUT CONTRAST CLINICAL INFORMATION: Altered mental status COMPARISON: CT head October 25, 2021 TECHNIQUE: Contiguous axial imaging was performed from the skull base to vertex without intravenous administration of contrast. Coronal and sagittal reformatted images are performed at the CT scanner. [This CT examination was performed using dose optimization techniques as appropriate, variously including the following: *Automated exposure control *Adjustment of mA and/or kV according to patient size (this includes techniques or standardized protocols for targeted exams where dose is matched to indication/reason for exam; i.e. extremities or head) *Use of iterative reconstruction technique] DLP: 742 mGy-cm. FINDINGS: There is no evidence of acute intracranial hemorrhage or territorial infarction. No abnormal mass-effect or midline shift is seen. Bradford to white matter differentiation is well preserved. No extra-axial fluid collections are identified. The ventricles are normal in size. There is no abnormal attenuation within the brain parenchyma. There is no osseous abnormality. The mastoid air cells and visualized portions of the paranasal sinuses are well-aerated. CT/CT head/brain wo IV con IMPRESSION: No acute intracranial pathology.
--- NOTE | ~2024-01-30 | XR_ITS ---
EXAMINATION: XR CHEST CLINICAL INFORMATION: Altered mental status COMPARISON: Chest x-ray April 18, 2023 TECHNIQUE: Frontal view of the chest was obtained. 2:05 PM FINDINGS: No significant abnormality is noted involving the heart, lungs, mediastinum, bony thorax or soft tissues. XR/XR chest 1V IMPRESSION: Unremarkable examination.
[2024-01-30 13:11] VITALS: BP 167/74; PULSE 73; RESP 18; TEMP 36.3; O2SAT 98; BMI 32.8
--- NOTE | 2024-01-30 13:11 | ED.DIZZY ---
HPI - Dizziness General Chief Complaint: Dizziness Stated Complaint: Dizziness Time Seen by Provider: 01/30/24 20:54 Source: patient Mode of arrival: ambulatory History of Present Illness ED Provider: martine MANN Narrative: Patient is 72 years old with past medical history of hypertension, hyperlipidemia, diabetes, asymmetric septal hypertrophy, diabetes, chronic pain syndrome been having right-sided neck pain with dizziness feeling since like lightheadedness when he bends down he syncopize with confusion no history of similar episodes in the past no tinnitus no nausea no vomiting no focal deficits no chest pain no palpitation no shortness a breath no injury to the neck no focal deficits no tinnitus patient feel off balance when he ambulates Related Data Home Medications ?Medication ?Instructions ?Recorded ?Confirmed aspirin 81 mg tablet,delayed 81 mg PO DAILY 08/12/20 12/20/23 release (Adult Low Dose Aspirin) atorvastatin 40 mg tablet 40 mg PO DAILY 08/12/20 12/20/23 omeprazole 20 mg capsule,delayed 20 mg PO BID heartburn 08/12/20 12/20/23 release lifitegrast 5 % eye drops in a 1 drp ophthalmic (eye) BID 12/23/22 12/20/23 dropperette (Xiidra) bupropion HCl 150 mg tablet,12 hr 150 mg PO BID 01/18/24 sustained-release carvedilol 6.25 mg tablet 6.25 mg PO BID 01/18/24 hydrochlorothiazide 25 mg tablet 25 mg PO DAILY 01/18/24 pioglitazone 15 mg tablet 15 mg PO DAILY 01/18/24 tamsulosin 0.4 mg capsule 0.4 mg PO DAILY 01/18/24 Previous Rx's ?Medication ?Instructions ?Recorded OneTouch Verio test strips (blood #300 ea 12/17/20 sugar diagnostic) pen needle, diabetic 32 gauge x #50 ea 12/17/20/32 (BD Theresa 2nd Gen Pen Needle) OneTouch Verio Meter #1 ea 01/15/21 (blood-glucose meter) insulin glargine 100 unit/mL (3 15 unit (0.15 mL) subcut QAM 90 04/22/21 mL) subcutaneous pen (Lantus days #15 mL Solostar U-100 Insulin) acarbose 50 mg tablet 75 mg (1.5 x 50 mg) PO TID 90 days 04/05/22 #405 tabs metformin 500 mg tablet 500 mg PO DAILY #30 tabs 04/20/22 buprenorphine 2 mg-naloxone 0.5 mg 1 film buccal DAILY #1 ea 09/04/22 sublingual film (Suboxone) celecoxib 200 mg capsule (Celebrex) 200 mg PO BID 30 days #60 caps 12/23/22 simethicone 125 mg capsule (Gas 125 mg PO BID-QID PRN abdominal 10/27/23 Relief (simethicone)) distention #30 caps finasteride 5 mg tablet 5 mg PO DAILY 90 days #90 tabs 12/20/23 losartan 50 mg tablet 50 mg PO DAILY #90 tabs 12/20/23 terazosin 5 mg capsule 5 mg PO BEDTIME 90 days #90 caps 12/23/23 hydralazine 100 mg tablet 100 mg PO TID 90 days #270 tabs 01/18/24 meclizine 25 mg tablet 25 mg PO TID PRN dizziness #20 tabs 01/30/24 Allergies Allergy/AdvReac Type Severity Reaction Status Date / Time No Known Allergies Allergy Verified 01/30/24 13:15 Review of Systems Review of Systems: Yes all other systems are reviewed and are negative PMFSH Past Medical History Medical History Right groin pain Right inguinal hernia On beta lala at home Hx SBO DM2 (diabetes mellitus, type 2) Disc degeneration, lumbar Chronic pain syndrome Spondylosis of lumbosacral spine with radiculopathy GERD (gastroesophageal reflux disease) Obesity (BMI 30-39.9) Hypertension 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 associated with 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 Surgical History Hx of inguinal hernia repair S/P placement of nerve stimulator Hx of surgical procedure Hx of cystoscopy Hx of lithotripsy Hx of right hemicolectomy Hx of colonoscopy Hx of esophagogastroduodenoscopy Family History Family History Father Unknown family medical history Mother Unknown family medical history Social History Social History Alcohol intake: never Patient Tobacco Use Status: Never used Tobacco Smoked in Last 30 Days: No Second Hand Smoke Exposure: No Use of substances other than those prescribed or required for medical reasons: No Advance Directives: Yes Advance Directives on File: Yes Advance Directives Date on File: 09/08/14 Do you have a plan to hurt others: No Plan Current occupational status: disabled 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 Oriented X3. No acute distress. Eyes: PERRLA, No Nystagmus ENT: Pharynx normal. Oral Mucosa moist Neck: Normal inspection. Neck supple. Tenderness in the right side of the neck and no bruit CVS: Normal heart rate and rhythm. Pulses normal. Respiratory: No respiratory distress. Equal air entry bilateral, no wheezing/rales/rhonchi Abdomen: Soft and nontender. Bowel sounds are present, no mass palpable, no CVA tenderness Skin: Skin warm and dry. Normal skin color. Normal skin turgor. Extremities: No lower extremity edema. No calf tenderness Neuro: Oriented X 3. No motor deficit. No sensory deficit.No cerebellar signs , cranial nerves II-XII intact Course Course Course Narrative: This is a Rapid Medical Exam performed in triage by Radha Caal PA-C. Full HPI, ROS and PE to be performed by primary ED provider. 73 year-old M w/ PMHx DM, GERD, HTN, presenting to the ED c/o dizziness & dry mouth x1 week w/disorientation per . states he gets dizzy & then doesn't know where he is, these episodes are intermittent lasting about 1hr. admits to taking ASA and gen fatigue/weakness PE: ambulating w/steady gait, A&Ox3 Plan: labs, UA, orthostatics ordered -1926--labs, UA and imaging reassuring. Patient reports feeling a little better. admits dizziness is worse with position changes or ambulating, resolves with being still. did feel dizzy when walking into triage. HTNsive in triage 202/75 (missed a dose BP med while in waiting room) Medications Administered Discontinued Medications Generic Name Dose Route Start Last Admin Trade Name Lisa PRN Reason Stop Dose Admin Iohexol 70 ml 01/30/24 22:15 01/30/24 22:16 Iohexol 350 Mg/Ml 100 Ml Infus..Btl IV 01/30/24 22:16 70 ml ONCE ONE Administration Medical Decision Making Medical Decision Making [facility] Narrative: Patient with lightheadedness near-syncope episode specially on turning his neck and changing the position pain CT scan is negative for acute cardiac workup is also negative without any cardiac arrhythmias we will do the CTA head and neck to see post vertebral artery stenosis possibly the cause for dizziness CTA head and neck negative patient's symptoms likely from benign positional vertigo patient feeling much better during stay in the ER after meclizine able to ambulate in steady gait Differential Diagnosis Differential Diagnoses: The differential diagnosis associated with the presentation includes posterior circulation syndrome/benign positional vertigo/orthostatic hypotension Admission/Observation Consideration of admission/observation: Escalation of care including admission/observation considered Lab Data [facility] Lab Attestation statement: I reviewed the patient's lab results. 01/30/24 13:52 01/30/24 13:52 Labs: Lab Results 01/30/24 01/30/24 01/30/24 Range/Units 13:51 13:52 20:03 WBC 7.4 (4.8-10.8) X10*3/uL RBC 4.11 L (4.60-5.80) X10*6/uL Hgb 11.8 L (14.0-18.0) g/dl Hct 35.0 L (42.0-52.0) % MCV 85.2 (80.0-98.0) fL MCH 28.7 (27.0-33.0) pg MCHC 33.7 (31.0-36.0) g/dl RDW 14.4 (11.0-16.0) % Plt Count 232 (160-400) X10*3/uL MPV 10.5 (9.4-12.4) fL Immature Gran % (Auto) 0.3 (0.0-0.4) % Neut % (Auto) 72.2 (45-73) % Lymph % (Auto) 19.0 L (20-40) % Preston % (Auto) 7.5 (2-11) % Eos % (Auto) 0.5 (0-4) % Baso % (Auto) 0.5 (0-2) % Lymph # (Auto) 1.4 (1.2-4.9) X10*3/uL Preston # (Auto) 0.6 (0.1-1.2) X10*3/uL Eos # (Auto) 0.0 (0.0-0.4) X10*3/uL Baso # (Auto) 0.0 (0.0-0.2) X10*3/uL Abs Immat Gran (auto) 0.02 (0.00-0.03) X10*3/uL Absolute Neuts (auto) 5.3 (2.0-8.3) x10*3/uL Absolute Nucleated RBC 0.000 (0.0-0.012) X10*3/uL Nucleated RBC % (auto) 0.0 (0.0-0.2) /100WBC PT 12.0 (11.1-13.3) SEC INR 1.0 (0.9-1.1) Sodium 140 (135-145) mmol/L Potassium 4.5 D (3.3-5.1) mmol/L Chloride 105 (96-108) mmol/L Carbon Dioxide 28 (22-29) mmol/L Anion Gap 12 (12-20) BUN 11 (9-16) mg/dL Creatinine 1.01 (0.5-1.4) mg/dL Estim Creat Clear Calc 73.7 Estimated GFR > 60 Random Glucose 252 H (60-115) mg/dL Calcium 9.6 (8.4-10.2) mg/dL Magnesium 1.8 (1.6-2.6) mg/dL Total Bilirubin 0.5 (0.0-1.0) mg/dL Direct Bilirubin 0.2 (0.0-0.5) mg/dL AST 17 (5-37) U/L ALT 15 (0-40) U/L Alkaline Phosphatase 68 (39-117) U/L Ammonia 24 (13-55) umol/L Troponin I High Sens < 2.7 (<3.5-35.0) ng/L Total Protein 7.2 (6.5-8.0) g/dL Albumin 4.0 (3.5-5.0) g/dL Urine Color Dark Yellow Urine Appearance Cloudy Urine pH 5.5 (5.0-9.0) Ur Specific Girard >= 1.030 H (1.005-1.025) Urine Protein 30 (1+) H (Neg-Trace) mg/dL Urine Glucose (UA) >=1000 H (Negative) mg/dL Urine Ketones Trace (Negative) mg/dL Urine Blood Negative (Negative) Urine Nitrite Negative (Negative) Ur Leukocyte Esterase Negative (Negative) Urine RBC 0-2 (0-2) /HPF Urine WBC 0-5 (0-5) /HPF Ur Squamous Epith Cells 0-2 (0-2) /HPF Urine Bacteria None Seen (None Seen) Hyaline Casts 3-5 (0-2) /LPF Influenza Type A (PCR) NEGATIVE (Negative) Influenza Type B (PCR) NEGATIVE (Negative) RSV RNA Qual (PCR) NEGATIVE (Negative) SARS-CoV-2 RNA (RT-PCR) NEGATIVE (Negative) Discharge Plan Discharge Clinical Impression: Benign paroxysmal positional vertigo Patient Disposition: Home, Self-Care Instructions: Benign Paroxysmal Positional Vertigo (ED) Additional Instructions: Drink plenty of fluids Take your own time while changing position Meclizine for severe dizziness Follow up with PCP if not better Prescriptions: New meclizine 25 mg tablet 25 mg PO TID PRN (Reason: dizziness) Qty: 20 0RF No Action (DME) blood-glucose meter [OneTouch Verio Meter] Misc See Rx Instructions .ROUTE .MEDSUPPLY Qty: 1 0RF Rx Instructions: 3 times a day acarbose 50 mg tablet 75 mg PO TID 90 Days Qty: 405 1RF metformin 500 mg tablet 500 mg PO DAILY Qty: 30 3RF losartan 50 mg tablet 50 mg PO DAILY Qty: 90 4RF terazosin 5 mg capsule 5 mg PO BEDTIME 90 Days Qty: 90 1RF buprenorphine-naloxone [Suboxone] 2-0.5 mg film 1 film buccal DAILY Qty: 1 0RF Rx Instructions: place 1 strip/tab under (each) side of tongue Lantus Solostar U-100 Insulin 100 unit/mL (3 mL) insulin pen 15 unit subcut QAM 90 Days Qty: 15 1RF atorvastatin 40 mg tablet 40 mg PO DAILY omeprazole 20 mg capsule,delayed release(DR/EC) 20 mg PO BID aspirin [Adult Low Dose Aspirin] 81 mg tablet,delayed release (DR/EC) 81 mg PO DAILY (DME) OneTouch Verio test strips Strip See Rx Instructions Not Applicable QID Qty: 300 2RF Rx Instructions: 3 times a day (DME) pen needle, diabetic [BD Theresa 2nd Gen Pen Needle] 32 gauge x 5/32 needle See Rx Instructions .MEDSUPPLY Qty: 50 4RF Rx Instructions: once a day Xiidra 5 % dropperette 1 drp ophthalmic (eye) BID celecoxib [Celebrex] 200 mg capsule 200 mg PO BID 30 Days Qty: 60 3RF finasteride 5 mg tablet 5 mg PO DAILY 90 Days Qty: 90 3RF bupropion HCl 150 mg tablet sustained-release 12 hr 150 mg PO BID carvedilol 6.25 mg tablet 6.25 mg PO BID Rx Instructions: must administer with a meal/food hydrochlorothiazide 25 mg tablet 25 mg PO DAILY pioglitazone 15 mg tablet 15 mg PO DAILY tamsulosin 0.4 mg capsule 0.4 mg PO DAILY hydralazine 100 mg tablet 100 mg PO TID 90 Days Qty: 270 3RF simethicone [Gas Relief (simethicone)] 125 mg capsule 125 mg PO BID-QID PRN (Reason: abdominal distention) Qty: 30 0RF Interventions: ED Discharge Assessment Last Done: 01/31/24 00:20 Discharge Date/Time: 01/31/24 00:21 Print Language: Thai
--- NOTE | 2024-01-30 13:13 | ECG_ITS ---
Test Reason : DIZZINESS Blood Pressure : / mmHG Vent. Rate : 064 BPM Atrial Rate : 064 BPM P-R Int : 148 ms QRS Dur : 082 ms QT Int : 416 ms P-R-T Axes : 000 -04 -16 degrees QTc Int : 429 ms Normal sinus rhythm Nonspecific ST and T wave abnormality Abnormal ECG When compared with ECG of 18-APR-2023 07:38, No significant change was found Referred By: Radha Caal Electronically Signed By:EVI ALICEA MD
[2024-01-30 13:56] LABS: MANUAL DIFF FLAG NO
[2024-01-30 13:58] LABS: Basophils Percent Auto 0.5 % (0-2); Eosinophils Percent Auto 0.5 % (0-4); Hemoglobin 11.8 g/dl (14.0-18.0); Imm Gran Abs Auto 0.02 X10*3/uL (0.00-0.03); Imm Gran Pct Auto 0.3 % (0.0-0.4); Lymphocytes Absolute Auto 1.4 X10*3/uL (1.2-4.9); Mean Corpuscular HGB Conc 33.7 g/dl (31.0-36.0); Mean Corpuscular Hemoglobin 28.7 pg (27.0-33.0); Mean Corpuscular Volume 85.2 fL (80.0-98.0); Mean Platelet Volume 10.5 fL (9.4-12.4); Monocytes Absolute Auto 0.6 X10*3/uL (0.1-1.2); Monocytes Percent Auto 7.5 % (2-11); Neutrophils Absolute Auto 5.3 x10*3/uL (2.0-8.3); Neutrophils Percent Auto 72.2 % (45-73); Platelet Count 232 X10*3/uL (160-400); Red Blood Count 4.11 X10*6/uL (4.60-5.80); Red Cell Distribution Width 14.4 % (11.0-16.0); White Blood Count 7.4 X10*3/uL (4.8-10.8)
[2024-01-30 14:03] LABS: Appearance Urine Cloudy; Color Urine Dark Yellow; Glucose Urine UA >=1000 mg/dL (Negative); Leukocyte Esterase Urine Negative (Negative); Nitrite Urine Negative (Negative); PH 5.5 (5.0-9.0); Specific Gravity - Urine >= 1.030 (1.005-1.025); UMIC TRIGGER UACC YES; Urine Blood Negative (Negative); Urine Ketones Trace mg/dL (Negative); Urine Protein 30 (1+) mg/dL (Neg-Trace)
[2024-01-30 14:13] LABS: Alanine Aminotransferase 15 U/L (0-40); Alkaline Phosphatase 68 U/L (39-117); Anion Gap 12 (12-20); Aspartate Amino Transferase 17 U/L (5-37); Bilirubin Direct 0.2 mg/dL (0.0-0.5); Bilirubin Total 0.5 mg/dL (0.0-1.0); Blood Urea Nitrogen 11 mg/dL (9-16); Calcium 9.6 mg/dL (8.4-10.2); Carbon Dioxide 28 mmol/L (22-29); Chloride 105 mmol/L (96-108); Creatinine Clr Calc Pharmacy 73.7; Estimated Glomerular Filt Rate > 60; Glucose Random 252 mg/dL (60-115); Magnesium 1.8 mg/dL (1.6-2.6); Potassium 4.5 mmol/L (3.3-5.1); Sodium 140 mmol/L (135-145); Total Protein 7.2 g/dL (6.5-8.0)
[2024-01-30 14:14] LABS: Bacteria Urine None Seen (None Seen); RBC Urine 0-2 /HPF (0-2); Squamous Epithelial Cell Urine 0-2 /HPF (0-2); WBC Urine 0-5 /HPF (0-5)
[2024-01-30 14:22] LABS: Troponin-I High Sensitivity < 2.7 ng/L (<3.5-35.0)
[2024-01-30 14:47] LABS: Influenza A PCR NEGATIVE (Negative); Influenza B PCR NEGATIVE (Negative); Resp Syncy Virus RNA Qual PCR NEGATIVE (Negative); SARS COV2 PCR INHOUSE NEGATIVE (Negative)
[2024-01-30 19:27] VITALS: BP 202/75; PULSE 78; RESP 16; TEMP 36.3; O2SAT 98
[2024-01-30 20:13] LABS: Ammonia 24 umol/L (13-55)
[2024-01-30 21:48] VITALS: BP 184/84; PULSE 71; RESP 16; TEMP 36.9; O2SAT 97
[2024-01-30] MEDS: iohexoL 350 MG/ML 100 ML INFUS..BTL 70 ML IV (22:16)
--- NOTE | 2024-01-30 22:25 | PC.NURSE ---
pt from home, a&ox4, respirations even and unlabored, ambulatory into stretcher. pt reporting onset of dizziness x1 week, reports this worsens with head turning and bending. pt reports that he feels confused when he becomes dizzy. pt neuros in tact at this time. denies chest pain, n/v/d. 20G placed in left ac. 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
[2024-01-30 23:53] VITALS: BP 174/84; PULSE 64
[2024-01-30 23:54] VITALS: BP 158/87; BP 170/90; PULSE 70; PULSE 72
[2024-01-31 00:20] VITALS: BP 170/90; PULSE 72; RESP 17; TEMP 36.4; O2SAT 99
== END 2024-01-31 00:21 | disposition home or self-care (01) ==
PROVIDERS: Physician Assistant; Emergency Provider Internal Medicine; PCP Internal Medicine
DX: H81.13 Benign paroxysmal vertigo, bilateral (principal); M54.2 Cervicalgia; R06.02 Shortness of breath; R94.31 Abnormal electrocardiogram [ECG] [EKG]; R51.9 Headache, unspecified; Z79.899 Other long term (current) drug therapy; Z03.818 Encounter for observation for suspected exposure to other biological agents ruled out
CPT/HCPCS: 0241U; 36415; 70450; 70496; 70498; 71045; 80048; 80076; 81001; 81003; 82140; 83735; 84484; 85025; 85610; 93005; 99284; 99285; Q9967

== ENCOUNTER → 2024-01-30 13:13 | Outpatient (BNV) | payer MEDICARE, SELFPAY | PROVIDERS: Emergency Provider Internal Medicine; PCP Internal Medicine; Visit Provider Internal Medicine Cardiovascular Disease | DX: R42 Dizziness and giddiness (principal); R94.31 Abnormal electrocardiogram [ECG] [EKG] | CPT/HCPCS: 93010 ==

== ENCOUNTER 2024-02-29 11:10 | Outpatient (RCR) | payer MEDICARE, SELFPAY ==
[2024-02-29 12:30] VITALS: BP 156/66; PULSE 65
--- NOTE | 2024-03-01 10:40 | MHC.PT.EP ---
[facility] [place] Office [place] Office [place] Office [address] [phone] F: [phone] F: [phone] F: [phone] F: [phone] Physical Therapy Plan of Care Date of Evaluation: 02/29/24 Date of Surgery: Diagnosis: Vertigo Assessment: Pt is a 73yo male referred to PT for vertigo, causing him imbalance and reduced mobility. PT exam reveals oculomotor impairments as well as + Bartley for BPPV. Skilled PT indicated to address BPPV with canalith repositioning, and train VOR and habituation exercises to improve symptoms of dizziness. Pt in agreement with POC and is motivated to participate. Frequency and Duration: The patient will be seen 1-2x/week, x 4 weeks Short Term Goals: 1. Pt will test negative on all BPPV tests in 2 weeks. 2. In 2 weeks, patient will be I with phase 1 convergence and VOR exercises. 3. In 2 weeks, patient will be able to utilize gaze stabilization when getting in and out of bed to reduce onset of dizziness. Skoog Patching Machine Operator Goals: 1. In 4 weeks, improve score on DHI by 25% indicating reduced symptoms and overall improved functional mobility. 2. In 4 weeks, patient will be able to walk with heads turns with no LOB. Treatment Plan: Modalities to reduce pain, spasms and effusion. Manual therapy to restore motion and function. Therapeutic exercise to improve strength and flexibility. Neuromuscular re-education for posture and balance. Therapeutic activities to return to functional activities of daily living. Electronically signed by: Sarita Blum PT, DPT Please sign and return to therapist. Thank you for your referral.
--- NOTE | 2024-06-13 10:28 | MHC.PT.DC ---
[facility] Office [place] Office [place] Office [address] [phone] F: [phone] F: [phone] F: [phone] F: [phone] Physical Therapy Discharge Report Diagnosis: Vertigo Date of Surgery: Date of Evaluation: 02/29/24 Date of Discharge: 06/13/24 Treatments to Date: 1 Cancellations to Date: 1 No Shows to Date: 1 Discharge Status: Patient Elected to Stop Visit Non-compliance Discharge Summary: Pt is a 73yo male referred to PT for vertigo, causing him imbalance and reduced mobility. PT exam reveals oculomotor impairments as well as + [place] Hall[place] for BPPV. Skilled PT indicated to address BPPV with canalith repositioning, and train VOR and habituation exercises to improve symptoms of dizziness. Pt in agreement with POC, however did not return to f/u appointments. D/C at this time due to visit non-compliance Electronically signed by: Sarita Blum PT, DPT Please sign and return to therapist. Thank you for your referral.
== END 2024-06-13 10:29 | disposition home or self-care (01) ==
LOC: HO.PT 11:10
PROVIDERS: PCP Internal Medicine; Visit Provider Otolaryngology
DX: R42 Dizziness and giddiness (principal)
CPT/HCPCS: 95992; 97110; 97161

== ENCOUNTER 2024-04-16 10:01 | Outpatient (REF) | payer MEDICARE, SELFPAY ==
[2024-04-16 11:53] LABS: Prostate Specific Antigen 1.52 ng/mL (<0.05-4.0)
== END 2024-04-16 10:02 | disposition home or self-care (01) ==
LOC: HO.LAB 10:01
PROVIDERS: PCP Internal Medicine; Visit Provider Urology
DX: N40.1 Benign prostatic hyperplasia with lower urinary tract symptoms (principal); N13.8 Other obstructive and reflux uropathy; Z12.5 Encounter for screening for malignant neoplasm of prostate
CPT/HCPCS: 36415; 84153

== ENCOUNTER 2024-04-20 11:27 | Outpatient (AMB) | payer MEDICARE, SELFPAY ==
--- NOTE | 2024-04-20 11:32 | HO.NEPHOV_ITS ---
Vital Signs 04/20/24 11:33 Height 5 ft 7 in Weight 213 lb 4 oz BMI 33.4 BP 168/90 H Blood Pressure Location Rt brachial Position Sitting Pulse 83 Pulse Source Pulse Oximeter Pulse Oximetry (%) 95 Oxygen Delivery Method Room Air Intake Visit Reasons: 3 mo fu w/ labs- CKD- LM State Tested Nursing Assistant Required: No State Tested Nursing Assistant Services: State Tested Nursing Assistant Offered & Declined (State Tested Nursing Assistant services refused, refusal form signed and scanned into chart. ) State Tested Nursing Assistant Name: Self Accompanied by: Self / Same As Patient Allergies No Known Allergies Allergy (Verified 04/20/24 11:36) HPI Comments Details: I had the pleasure of seeing Isaac in follow up of his hypertension. His blood pressure is well controlled on current medication regimen. He is a diabetic and monitors blood sugar closely. He has not lost a lot of weight. He denies chest pain, shortness of breath, nausea, vomiting, diarrhea, edema , urinary or orthostatic symptoms. There were no active systemic complaints at the time of this office visit [facility] Medical History Right groin pain Right inguinal hernia On beta lala at home Hx SBO DM2 (diabetes mellitus, type 2) Disc degeneration, lumbar Chronic pain syndrome Spondylosis of lumbosacral spine with radiculopathy GERD (gastroesophageal reflux disease) Obesity (BMI 30-39.9) Hypertension 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 associated with type 2 diabetes mellitus [facility] (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 Surgical History Hx of inguinal hernia repair S/P placement of nerve stimulator Hx of surgical procedure Hx of cystoscopy Hx of lithotripsy Hx of right hemicolectomy Hx of colonoscopy Hx of esophagogastroduodenoscopy Family History Father Unknown family medical history Mother Unknown family medical history Social History Alcohol intake: never Patient Tobacco Use Status: Never used Tobacco Second Hand Smoke Exposure: No Advance Directives Date on File: 09/08/14 Current occupational status: disabled 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/ Review of Systems Const All systems reviewed & are unremarkable except as noted in HPI and below Physical Exam Vital Signs: Last Vital Signs Pulse 83 04/20/24 11:33 BP 168/90 H 04/20/24 11:33 Pulse Ox 95 04/20/24 11:33 Oxygen Delivery Method Room Air 04/20/24 11:33 BMI result Body Mass Index 33.4 Const General: comfortable and no acute distress Orientation/consciousness: patient oriented x3 HEENT Head: Yes normocephalic Mouth: Normal oral and palatal mucosa present Eyes EOM: EOMs intact bilaterally Neck Neck: Yes supple Resp Auscultation: clear to auscultation bilaterally Cardio Jugular venous distension: no JVD Rate: regular rate GI Palpation (GI): Soft to palpation Auscultation: normal bowel sounds General: Yes no CVA tenderness Back/Spine/Pelvis Back: no CVA tenderness Skin General skin exam: no rashes or lesions noted Neuro General: patient oriented x3 and moves all extremities Extrem General: Yes no pedal edema Results Reviewed Nephrology Results: Hgb 11.8 g/dl (14.0-18.0) L 01/30/24 WBC 7.4 X10*3/uL (4.8-10.8) 01/30/24 Plt Count 232 X10*3/uL (160-400) 01/30/24 Sodium 140 mmol/L (135-145) 01/30/24 Potassium 4.5 mmol/L (3.3-5.1) 01/30/24 Chloride 105 mmol/L (96-108) 01/30/24 Carbon Dioxide 28 mmol/L (22-29) 01/30/24 BUN 11 mg/dL (9-16) 01/30/24 Creatinine 1.01 mg/dL (0.5-1.4) 01/30/24 Calcium 9.6 mg/dL (8.4-10.2) 01/30/24 Urine Protein 30 (1+) mg/dL (Neg-Trace) H 01/30/24 Urine Creatinine 67.40 mg/dL 01/27/24 Protein/Creatinin Ratio 0.05 (<0.2) 01/18/24 Assessment & Plan Assessment & Plan (1) Essential hypertension: Code(s): I10 - Essential (primary) hypertension Category: Medical (2) Hypertension: Code(s): I10 - Essential (primary) hypertension Category: Medical Qualifiers: Hypertension type: essential hypertension Qualified Code(s): I10 - Essential (primary) hypertension Plan Isaac has long standing hypertension. His blood pressure is well controlled on current medication regimen. He is a diabetic. He is on Cozaar. He has no retinopathy or CHF. He has normal urine protein cr ratio and renal function is stable at baseline. He needs to loose weight. He is going to have TURP this year. No medication changes made . All questions answered. Follow up appointment given Orders: Orders Calcium 6 Months I10 - Essential (primary) hypertension Creatinine 6 Months I10 - Essential (primary) hypertension Blood Urea Nitrogen 6 Months I10 - Essential (primary) hypertension Electrolytes 6 Months I10 - Essential (primary) hypertension Coding Level of Care Code Est Pt Level 4 (87778) Diagnoses Essential hypertension I10 Essential hypertension I10 Hypertension type: essential hypertension
[2024-04-20 11:33] VITALS: BP 168/90; PULSE 83; O2SAT 95; BMI 33.4
== END 2024-04-20 11:49 | disposition home or self-care (01) ==
PROVIDERS: PCP Internal Medicine; Visit Provider Internal Medicine Nephrology
DX: I10 Essential (primary) hypertension (principal)
CPT/HCPCS: 99214

== ENCOUNTER → 2024-04-20 11:27 | Outpatient (BNVA) | payer MEDICARE, SELFPAY | PROVIDERS: PCP Internal Medicine; Visit Provider Internal Medicine Nephrology | DX: I10 Essential (primary) hypertension (principal) | CPT/HCPCS: 99212 ==

== ENCOUNTER 2024-04-24 10:59 | Outpatient (AMB) | payer MEDICARE, SELFPAY ==
--- NOTE | 2024-04-24 11:07 | A.OFFVIS_ITS ---
Intake Visit Reasons: 4M Follow Up-PVR/PSA(set) Intake Note: Patient is Present for PVR/PSA Urology Med: Terazosin, Finasteride Antibiotic Allergy:None Blood Thinner: Aspirin Last PVR: 39 Todays PVR: 19 Recent PSA: 04/16/24- 1.52 Last PSA: 1.31 Recent A1C: 9.2 Patient states that medication is working some and he does state he has some slight discomfort when he needs to urinate Plater Printed Circuit Board Panels Required: No Network Security Engineer: Network Security Engineer Present Accompanied by: Son Allergies No Known Allergies Allergy (Verified 04/20/24 11:36) HPI Comments Details: Isaac is a pleasant male. He is seen for the following urologic condition. - lower urinary tract symptoms Four month follow-up consideration for GreenLight laser PVR 40 cc Bladder ultrasound with small prostate Recommend prostate incision Has weak stream and unable to get more than 12 in of range Lower urinary tract symptoms Longstanding lower urinary tract symptoms Good response to combination therapy Current therapy Flomax 0.8 mg. 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 Surgical History Hx of inguinal hernia repair S/P placement of nerve stimulator Hx of surgical procedure Hx of cystoscopy Hx of lithotripsy Hx of right hemicolectomy Hx of colonoscopy Hx of esophagogastroduodenoscopy Family History Father Unknown family medical history Mother Unknown family medical history Social History Alcohol intake: never Patient Tobacco Use Status: Never used Tobacco Second Hand Smoke Exposure: No Advance Directives Date on File: 09/08/14 Current occupational status: disabled 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/ Review of Systems Const Denies chills and Denies fever(s) Card Reports no additional complaints and Denies syncope Resp Denies cough GI Denies abdominal pain and Denies heartburn Reports as per HPI and Denies change in libido Neuro Denies syncope Psych Denies change in libido Endo Denies change in libido Physical Exam Const General: cooperative, healthy appearing, comfortable and no acute distress Orientation/consciousness: patient oriented x3 HEENT Face and sinus: Yes normal facial exam Mouth: moist mucous membranes Neck Neck: Yes normal visual inspection, Yes full ROM and Yes trachea midline Chest Chest palpation & inspection: normal inspection of the chest Resp Effort & Inspection: normal respiratory effort, able to speak in complete sentences and no respiratory distress GI Inspection: Yes normal to inspection Back/Spine/Pelvis Cervical Spine: normal cervical lordosis Thoracic/Lumbar Spine: thoracic and lumbar spine normal to inspection Skin General skin exam: no rashes or lesions noted Neuro General: patient oriented x3, gait normal, tone normal and moves all extremities Extrem General: Yes normal to inspection and Yes capillary refill normal Office Procedures Post Void Residual Post Residual Void Post Void Residual (PVR): 19 [id number] Void Residual by ultrasound Assessment & Plan Assessment & Plan (1) BPH w urinary obs/LUTS: Code(s): N40.1 - Benign prostatic hyperplasia with lower urinary tract symptoms; N13.8 - Other obstructive and reflux uropathy Category: Medical Plan We discussed the nature of the decision and reasonable options for performing a prostate intervention. Interventions include TURP, GreenLight laser enucleation of the prostate, GreenLight laser ablation of the prostate, transurethral incision of the prostate, and I-Tend prostate procedure. Options such as medical therapy were discussed. The relative uncertainties and benefits related to each alternate procedure were adequately discussed. General surgical risks including, but not limited to, pain, bleeding, infection, myocardial infarction, pulmonary embolus, deep vein thrombosis and cerebrovascular accident which may result in further hospitalization were discussed. Full disclosure of the procedure as well as all major risks, benefits and complications were discussed including but not limited to damage to the urethra or bladder neck, recurrent BPH, retrograde ejaculation, bladder infection, urge, de darcie frequency, incomplete emptying, dysuria, remote chance of erectile dysfunction, epididymitis, and meatal stenosis. The success rate of the procedure was discussed. Success of the procedure in the short-term does not necessarily guarantee that long-term success will be maintained. Suitable follow up will need to be maintained. The patient showed understanding of discussion. An opportunity was provided for questions to be answered and wishes to proceed with the following procedure. - prostate incision Orders: Orders AMB Post Void Residual by ultrasound Today N13.8 - Other obstructive and reflux uropathy, N40.1 - Benign prostatic hyperplasia with lower urinary tract symptoms Patient Instructions: Imaging studies, laboratory and physical exam results were discussed and reviewed in detail. No major barriers to patient understanding were identified. An opportunity to ask questions regarding the treatment plan was provided. All questions were answered. The patient expressed understanding and agreement with the above treatment plan. The patient is aware they should contact our office by phone for worsening of their current condition or the appearance of new urologic symptoms. Compliance is encouraged with any medications and followup testing that is ordered. It is a privilege to participate in the urologic care of your patient. If you have any questions or concerns regarding treatment for the above conditions, or other urologic issues, please do not hesitate to contact me. The office telephone contact is [phone]. This note is constructed using voice recognition software. While every effort has been made to ensure accuracy plastic production machine setter errors may have been included. Yours sincerely, Dr Rafita Garland MD, [facility] - Urology Providers of Expert, Compassionate Care for the Genitourinary System Coding Level of Care Code Est Pt Level 3 (93130) Diagnoses BPH w urinary obs/LUTS N40.1; N13.8 CPT Codes Post Residual Void - PVR CPT Code: 01571-[id number] Void Residual by ultrasound ([id number])
== END 2024-04-24 11:30 | disposition home or self-care (01) ==
PROVIDERS: PCP Internal Medicine; Visit Provider Urology
DX: N40.1 Benign prostatic hyperplasia with lower urinary tract symptoms (principal); N13.8 Other obstructive and reflux uropathy
CPT/HCPCS: 99213

== ENCOUNTER → 2024-04-24 10:59 | Outpatient (BNVA) | payer MEDICARE, SELFPAY | PROVIDERS: PCP Internal Medicine; Visit Provider Urology | DX: N40.1 Benign prostatic hyperplasia with lower urinary tract symptoms (principal); N13.8 Other obstructive and reflux uropathy | CPT/HCPCS: 51798; 99212 ==

== ENCOUNTER 2024-05-15 10:42 | Outpatient (REF) | payer MEDICARE, SELFPAY ==
[2024-05-15 11:30] LABS: TSH reflex Free T4 0.97 uIU/mL (0.32-4.0)
[2024-05-15 11:45] LABS: Folate 11.1 ng/mL (> or = 4.0); Vitamin B12 435 pg/mL (200-900)
== END 2024-05-15 10:43 | disposition home or self-care (01) ==
LOC: HO.LNP 10:42
PROVIDERS: Visit Provider Internal Medicine
DX: R41.3 Other amnesia (principal)
CPT/HCPCS: 82607; 82746; 84443

== ENCOUNTER 2024-08-02 09:42 | Outpatient (AMB) | payer MEDICARE, SELFPAY ==
--- NOTE | 2024-08-02 09:42 | A.OFFVIS_ITS ---
Intake Visit Reasons: Discuss procedure Intake Note: Patient is present for DISCUSS PROCEDURE Urology Medication:TERAZOSIN,FINASTERIDE,TAMSULOSIN Antibiotic Allergy:NONE Blood Thinner:ASPIRIN Attorney General Required: No Allergies No Known Allergies Allergy (Verified 08/02/24 09:42) HPI Comments Details: Isaac is a pleasant male. He is seen for the following urologic condition. - lower urinary tract symptoms Telemedicine Evaluation 15 min Consultation [employer] [place] Video Discussion with patient and son who is translating Four month follow-up consideration for GreenLight laser Would like to move ahead with prostate incision in October Did discuss impact of diabetes on urinary urgency and frequency PVR 40 cc Bladder ultrasound with small prostate 20cc Recommend prostate incision Has weak stream and unable to get more than 12 in of range Lower urinary tract symptoms Longstanding lower urinary tract symptoms Good response to combination therapy Current therapy Flomax 0.8 mg. 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 Surgical History Hx of inguinal hernia repair S/P placement of nerve stimulator Hx of surgical procedure Hx of cystoscopy Hx of lithotripsy Hx of right hemicolectomy Hx of colonoscopy Hx of esophagogastroduodenoscopy Family History Father Unknown family medical history Mother Unknown family medical history Social History Alcohol intake: never Patient Tobacco Use Status: Never used Tobacco Second Hand Smoke Exposure: No Advance Directives Date on File: 09/08/14 Current occupational status: disabled 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/ Review of Systems Const All systems reviewed & are unremarkable except as noted in HPI and below Reports no additional complaints Resp Reports no additional complaints GI Reports no additional complaints Reports as per HPI Musc Reports no additional complaints Physical Exam Telemedicine evaluation Appropriate responses Regular breathing rate and rhythm HEENT Head: Yes normal to inspection Ears: hearing grossly normal bilaterally Eyes General: appearance normal, both eyes and all related structures Neck Neck: Yes normal visual inspection Chest Chest palpation & inspection: normal inspection of the chest Resp Effort & Inspection: normal respiratory effort and able to speak in complete sentences Telehealth Telehealth Telehealth Platform: AXON [employer] Location of provider rendering services: practice address Location of patient: address on file Patient Identification confirmed using: Name, : Yes Telehealth method: video Patient verbally consented to treatment: Yes Patient verbally consented to billing insurance company: Yes Patient informed of any privacy concerns related to visit: Yes Minutes spent on Phone/Video with Pt.: 15 Assessment & Plan Assessment & Plan (1) Urinary hesitancy: Code(s): R39.11 - Hesitancy of micturition Category: Medical (2) BPH w urinary obs/LUTS: Code(s): N40.1 - Benign prostatic hyperplasia with lower urinary tract symptoms; N13.8 - Other obstructive and reflux uropathy Category: Medical Plan Risks, benefits and alternatives to therapy were discussed. These include but are not limited to infection, bleeding, damage to local organs and tissues, need for further interventions. Anesthetic risks regarding cardiac arrhythmia, blood clots, and potential mortality were discussed. The patient understands the typical recovery time and the outpatient nature of the procedure. After consideration of these risks the patient gives full informed consent and they wish to move ahead with the procedure. - Transurethral incision of the prostate Patient Instructions: Imaging studies, laboratory and physical exam results were discussed and reviewed in detail. No major barriers to patient understanding were identified. An opportunity to ask questions regarding the treatment plan was provided. All questions were answered. The patient expressed understanding and agreement with the above treatment plan. The patient is aware they should contact our office by phone for worsening of their current condition or the appearance of new urologic symptoms. Compliance is encouraged with any medications and followup testing that is ordered. It is a privilege to participate in the urologic care of your patient. If you have any questions or concerns regarding treatment for the above conditions, or other urologic issues, please do not hesitate to contact me. The office telephone contact is [phone]. This note is constructed using voice recognition software. While every effort has been made to ensure accuracy wood experimental mechanic errors may have been included. Yours sincerely, Dr Rafita Garland MD, [facility] - Urology Providers of Expert, Compassionate Care for the Genitourinary System Coding Level of Care Code Tele Est Pt Level 4 (87656) Diagnoses Urinary hesitancy R39.11 BPH w urinary obs/LUTS N40.1; N13.8
== END 2024-08-02 11:13 | disposition home or self-care (01) ==
LOC: HO.HUSH 09:42
PROVIDERS: PCP Internal Medicine; Visit Provider Urology
DX: N40.1 Benign prostatic hyperplasia with lower urinary tract symptoms (principal); R39.11 Hesitancy of micturition; N13.8 Other obstructive and reflux uropathy
CPT/HCPCS: 99214

== ENCOUNTER → 2024-08-02 09:42 | Outpatient (BNVA) | payer MEDICARE, SELFPAY | PROVIDERS: PCP Internal Medicine; Visit Provider Urology ==

== ENCOUNTER 2024-09-14 07:25 | Day surgery (SDC) | payer MEDICARE, SELFPAY ==
--- NOTE | 2024-05-10 11:59 | HO.ANESPROP2 ---
HPI - Anesthesia Eval Consult details Narrative: 73yo M for Colonoscopy Follows [facility] [place] cardiology yearly. Last 04/2023 with BP med increases. PMFSH Active Problems Active Problems: All Active Problems Spondylosis of lumbar region without myelopathy or radiculopathy (Acute) Posterior right knee pain (Acute) Posterior left knee pain (Acute) Partial small bowel obstruction (Acute) Gas pain (Acute) Urinary hesitancy (Acute) Abnormal EKG (Acute) Asymmetric septal hypertrophy (Acute) Osteoarthritis of hip (Acute) Osteoarthritis of both knees (Acute) Osteoarthritis of hands, bilateral (Acute) Osteoarthritis of lumbar spine (Acute) Other and unspecified hyperlipidemia (Acute) Type 2 diabetes mellitus with unspecified complications (Acute) Essential hypertension (Acute) Precordial chest pain (Acute) Right inguinal hernia (Acute) BPH w urinary obs/LUTS (Acute) Right groin pain (Acute) Right inguinal hernia (Acute) DM2 (diabetes mellitus, type 2) (Acute) Disc degeneration, lumbar (Acute) Chronic pain syndrome (Acute) Spondylosis of lumbosacral spine with radiculopathy (Acute) GERD (gastroesophageal reflux disease) (Acute) Obesity (BMI 30-39.9) (Acute) Hypertension (Acute) 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 associated with type 2 diabetes mellitus (Acute) alf (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 (Acute) Past Medical History Medical History Right groin pain Right inguinal hernia On beta lala at home Hx SBO DM2 (diabetes mellitus, type 2) Disc degeneration, lumbar Chronic pain syndrome Spondylosis of lumbosacral spine with radiculopathy GERD (gastroesophageal reflux disease) Obesity (BMI 30-39.9) Hypertension 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 associated with 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 Family History Family History Father Unknown family medical history Mother Unknown family medical history Family history of problems with anesthesia: No Surgical History Surgical History Hx of inguinal hernia repair S/P placement of nerve stimulator Hx of surgical procedure Hx of cystoscopy Hx of lithotripsy Hx of right hemicolectomy Hx of colonoscopy Hx of esophagogastroduodenoscopy History of Problems with Anesthesia: No Social History Social History Alcohol intake: never Patient Tobacco Use Status: Never used Tobacco Second Hand Smoke Exposure: No Advance Directives Date on File: 09/08/14 Current occupational status: disabled 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/ Meds Allergies Allergy/AdvReac Type Severity Reaction Status Date / Time No Known Allergies Allergy Verified 04/20/24 11:36 Home Medications ?Medication ?Instructions ?Recorded ?Confirmed ?Last Taken ?Type aspirin 81 mg tablet,delayed 81 mg PO DAILY 08/12/20 12/20/23 07/01/23 History release (Adult Low Dose Aspirin) atorvastatin 40 mg tablet 40 mg PO DAILY 08/12/20 12/20/23 07/29/23 History omeprazole 20 mg capsule,delayed 20 mg PO BID heartburn 08/12/20 12/20/23 07/29/23 History release lifitegrast 5 % eye drops in a 1 drp ophthalmic (eye) BID 12/23/22 12/20/23 07/08/23 05:00 History dropperette (Xiidra) bupropion HCl 150 mg tablet,12 hr 150 mg PO BID 01/18/24 Unknown History sustained-release carvedilol 6.25 mg tablet 6.25 mg PO BID 01/18/24 Unknown History hydrochlorothiazide 25 mg tablet 25 mg PO DAILY 01/18/24 Unknown History pioglitazone 15 mg tablet 15 mg PO DAILY 01/18/24 Unknown History tamsulosin 0.4 mg capsule 0.4 mg PO DAILY 01/18/24 Unknown History Exam Narrative Narrative: EKG 01/2024 Vent. Rate : 064 BPM Atrial Rate : 064 BPM P-R Int : 148 ms QRS Dur : 082 ms QT Int : 416 ms P-R-T Axes : 000 -04 -16 degrees QTc Int : 429 ms Normal sinus rhythm Nonspecific ST and T wave abnormality Abnormal ECG When compared with ECG of 18-APR-2023 07:38, No significant change was found ECHO 2021 Conclusions: - 1. Normal LV systolic function with mild asymmetric septal hypertrophy with impaired relaxation with elevated filling pressures 2. Normal cardiac valvular Doppler 3. No gross pericardial effusion Assessment and Plan Assessment Anesthesia Assessment: Chart Reviewed Final Anesthetic Review Family History of Problems with Anesthesia: No History of Problems with Anesthesia: No
[2024-09-12 14:26] VITALS: BMI 32.0
--- NOTE | 2024-09-13 10:14 | P.CONAN_ITS ---
Documented by User: Roxana Agosto NP 09/13/24 10:16 HPI - Anesthesia Eval Consult details Narrative: 74yo M for Colonoscopy Nerve stim in situ Suboxone daily [place] [facility] [place] Last office visit 04/2023. Chest pain likely musculoskeletal. Stable for 1 year f/u. [facility] Active Problems Active Problems: All Active Problems Spondylosis of lumbar region without myelopathy or radiculopathy (Acute) Posterior right knee pain (Acute) Posterior left knee pain (Acute) Partial small bowel obstruction (Acute) Gas pain (Acute) Urinary hesitancy (Acute) Abnormal EKG (Acute) Asymmetric septal hypertrophy (Acute) Osteoarthritis of hip (Acute) Osteoarthritis of both knees (Acute) Osteoarthritis of hands, bilateral (Acute) Osteoarthritis of lumbar spine (Acute) Other and unspecified hyperlipidemia (Acute) Type 2 diabetes mellitus with unspecified complications (Acute) Essential hypertension (Acute) Precordial chest pain (Acute) Right inguinal hernia (Acute) BPH w urinary obs/LUTS (Acute) Right groin pain (Acute) Right inguinal hernia (Acute) DM2 (diabetes mellitus, type 2) (Acute) Disc degeneration, lumbar (Acute) Chronic pain syndrome (Acute) Spondylosis of lumbosacral spine with radiculopathy (Acute) GERD (gastroesophageal reflux disease) (Acute) Obesity (BMI 30-39.9) (Acute) Hypertension (Acute) 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 associated with type 2 diabetes mellitus (Acute) 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 (Acute) Past Medical History Medical History Right groin pain Right inguinal hernia On beta lala at home Hx SBO DM2 (diabetes mellitus, type 2) Disc degeneration, lumbar Chronic pain syndrome Spondylosis of lumbosacral spine with radiculopathy GERD (gastroesophageal reflux disease) Obesity (BMI 30-39.9) Hypertension 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 associated with type 2 diabetes mellitus FCI (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 Family History Family History Father Unknown family medical history Mother Unknown family medical history Family history of problems with anesthesia: No Surgical History Surgical History Hx of inguinal hernia repair S/P placement of nerve stimulator Hx of surgical procedure Hx of cystoscopy Hx of lithotripsy Hx of right hemicolectomy Hx of colonoscopy Hx of esophagogastroduodenoscopy History of Problems with Anesthesia: No Social History Social History Are you a primary clinical care coordinator to a significant other at home: No Do you presently have visiting nurse or other home services: No Alcohol intake: never Patient Tobacco Use Status: Never used Tobacco Second Hand Smoke Exposure: No Use of substances other than those prescribed or required for medical reasons: No Have you been hit, kicked, punched, or otherwise hurt by someone within the past year? 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 Allergies Allergy/AdvReac Type Severity Reaction Status Date / Time No Known Allergies Allergy Verified 08/02/24 09:42 Home Medications ?Medication ?Instructions ?Recorded ?Confirmed ?Last Taken ?Type aspirin 81 mg tablet,delayed 81 mg PO DAILY 08/12/20 09/14/24 07/01/23 History release (Adult Low Dose Aspirin) atorvastatin 40 mg tablet 40 mg PO DAILY 08/12/20 09/14/24 07/29/23 History omeprazole 20 mg capsule,delayed 20 mg PO BID heartburn 08/12/20 09/14/24 07/29/23 History release lifitegrast 5 % eye drops in a 1 drp ophthalmic (eye) BID 12/23/22 09/14/24 07/08/23 05:00 History dropperette (Xiidra) bupropion HCl 150 mg tablet,12 hr 150 mg PO BID 01/18/24 09/14/24 Unknown History sustained-release carvedilol 6.25 mg tablet 6.25 mg PO BID 01/18/24 09/14/24 Unknown History hydrochlorothiazide 25 mg tablet 25 mg PO DAILY 01/18/24 09/14/24 Unknown History pioglitazone 15 mg tablet 15 mg PO DAILY 01/18/24 09/14/24 Unknown History Exam Height,Weight and Vital Signs: Height 5 ft 8.35 in Weight 96.332 kg Assessment and Plan Assessment Anesthesia Assessment: Chart Reviewed Final Anesthetic Review Family History of Problems with Anesthesia: No History of Problems with Anesthesia: No Documented by User: Heaven Vasquez MD 09/14/24 08:45 PMFSH Past Medical History Medical History Right groin pain Right inguinal hernia On beta lala at home Hx SBO DM2 (diabetes mellitus, type 2) Disc degeneration, lumbar Chronic pain syndrome Spondylosis of lumbosacral spine with radiculopathy GERD (gastroesophageal reflux disease) Obesity (BMI 30-39.9) Hypertension 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 associated with type 2 diabetes mellitus FCI (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 Family History Family History Father Unknown family medical history Mother Unknown family medical history Surgical History Surgical History Hx of inguinal hernia repair S/P placement of nerve stimulator Hx of surgical procedure Hx of cystoscopy Hx of lithotripsy Hx of right hemicolectomy Hx of colonoscopy Hx of esophagogastroduodenoscopy Social History Social History Are you a primary clinical care coordinator to a significant other at home: No Do you presently have visiting nurse or other home services: No Alcohol intake: never Patient Tobacco Use Status: Never used Tobacco Second Hand Smoke Exposure: No Use of substances other than those prescribed or required for medical reasons: No Have you been hit, kicked, punched, or otherwise hurt by someone within the past year? 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 Allergies Allergy/AdvReac Type Severity Reaction Status Date / Time No Known Allergies Allergy Verified 08/02/24 09:42 Home Medications ?Medication ?Instructions ?Recorded ?Confirmed ?Last Taken ?Type aspirin 81 mg tablet,delayed 81 mg PO DAILY 08/12/20 09/14/24 07/01/23 History release (Adult Low Dose Aspirin) atorvastatin 40 mg tablet 40 mg PO DAILY 08/12/20 09/14/24 07/29/23 History omeprazole 20 mg capsule,delayed 20 mg PO BID heartburn 08/12/20 09/14/24 07/29/23 History release lifitegrast 5 % eye drops in a 1 drp ophthalmic (eye) BID 12/23/22 09/14/24 07/08/23 05:00 History dropperette (Xiidra) bupropion HCl 150 mg tablet,12 hr 150 mg PO BID 01/18/24 09/14/24 Unknown History sustained-release carvedilol 6.25 mg tablet 6.25 mg PO BID 01/18/24 09/14/24 Unknown History hydrochlorothiazide 25 mg tablet 25 mg PO DAILY 01/18/24 09/14/24 Unknown History pioglitazone 15 mg tablet 15 mg PO DAILY 01/18/24 09/14/24 Unknown History Exam Airway Mallampati Class: II TM Dist: >3cm Neck ROM: Full Heart: rrr Lungs: cta Assessment and Plan Assessment Anesthesia Assessment: Anesthesia Plan Discussed Final Anesthetic Review NPO: Yes ASA Class: III Final Preanesthetic Review: No Changes in Pt Med Stat, Meds/Allgs Chart Reviewed and Consent Obtained/Reviewed Patient Risk: Low Procedure Risk: Low Anesthetic Plan Anesthetic Plan: MAC: Disposition: Standard PACU
--- OUTSIDE RECORDS SUMMARY | 2024-09-14 07:29 | XMS_ITS ---
Author Organization Mahad Haddad MD Address [address] [place] [phone] Care Team Providers Care Professor Of Voice Name Role Phone Mahad Haddad Primary Care Provider [phone] REASON FOR VISIT B12 TSH needed for his appt with [facility] Immunizations Vaccine Route Administration Date Status Comme nts Influenza High Dose Unknown 05/15/2024 Refused Encounters Encounter Location Date Provider Diagnosis Mahad Haddad MD [address] [place] [phone] 05/15/2024 Mahad Haddad Memory loss R41.3 Assessments Encounter Date Diagnosis (ICD Code) Assessment Notes Treatment Notes Treatment Clinical Notes Section Notes 05/15/2024 Memory loss (ICD-10 - R41.3) Plan Of Treatment Pending Test Test Name Order Date Vitamin B12 and Folate 05/15/2024 TSH reflex Free T4 05/15/2024 Next Appt Details Provider Name:Mahad Jang ier, 09/21/2024 07:30:00 AM, [address] [place] [address], Suite [facility], [place], [place], [phone], Provider Name:Mahad Jang ier, 09/28/2024 10:15:00 AM, [address] [place] [address], Suite [facility], [place], [place], [phone], Provider Name:Mahad Jang ier, 02/26/2025 07:45:00 AM, [address] [place] [address], Suite [facility], [place], [place], [phone], Provider Name:Mahad cashr, 03/05/2025 09:30:00 AM, [address] [place] [address], Suite [facility], [place], [place], [phone], Progress Notes * RACHAEL CARTERDOB:[birth year] (74 yo M)Acc No.[id number]:05/15/2024 Progress Note Patient:RACHAEL GUTIERREZ Provider:?Mahad Haddad MD :1950???Age:73 Y???Sex:Male Alfie e:05/15/2024 Address: [address] [id number] Subjective: * Chief Complaints: * ???1. B12 TSH needed for his appt with [facility]. * Medical History:? Objective: * Vitals:? Assessment: * Assessment: 1.?Memory loss - R41.3 (Prim garrett)??? Plan: * Treatment: * Immunizations:? Influenza High Dose (Not administered - Refused: Patient decision) * Procedure Codes:?98289 VENIP UNCT, ROUTINE* * * The named appointment provid er may or may not be the originator of this progress note, and it is not deemed complete until electronically signed by the appointment provider. Sign off status: Pending * Provider:?Mahad Haddad MD Date:?1 Generated for Xena purdy/Adina/Aide on:?09/14/2024 07:29 AM EST
--- OUTSIDE RECORDS SUMMARY | 2024-09-14 07:29 | XMS_ITS | Patient Health Record ---
Author Organization [facility] Address [address] [place] [address] Care Team Providers Care Returned Item Clerk Name Role Phone Mahad Haddad MD Primary Care Provider Juancarlos Cohen Unavailable [phone] ALLERGIES No Known Allergies REASON FOR REFERRAL No Information MEDICATIONS Medication SIG (Take, Route, Frequency, Duration) Notes Start Date End Date Status Acarbose 50 MG TAKE 1 TABLET BY SUDHAKAR TH THREE TIMES A DAY Oral for 30 Active Dicyclomine HCl 10 MG 1 or 2 capsules Or ally Every 6 hours as needed for abdominal bloating, cramps, discomfort for 30 day(s) 01/24/2024 Active Metoprolol Succinate ER 100 MG TAKE 1 TABLET BY MOUTH EVERY DAY AT NIGHT Oral for 30 Active Omeprazole 20 MG TAKE 1 CAPSULE BY MO UTH TWICE A DAY FOR HEARBURN 90 for 90 Active hydrALAZINE HCl 50 MG TAKE 1 and 1/2 TAB LET BY MOUTH 3 TIMES A DAY Oral Three times a day Active Buprenorphine HCl-Naloxone HCl 2-0.5 MG Sublingual for 19 Active Losartan Potassium 100 MG Oral for 30 Active Celecoxib 200 MG Oral for 30 A ctive buPROPion HCl ER (XL) 150 MG TAKE 1 TABLET BY MOUTH EVERY DAY IN THE MORNING Oral for 30 Active Pioglitazone HCl 15 MG Oral for 30 Active Lantus SoloStar 100 UNIT/ML Subcutaneous for 90 Active Aspir-81 81mg Active Tamsulosin HCl 0.4 MG TAKE 1 CAPSULE BY MOUTH TWICE A DAY Oral for 90 Active metFORMIN HCl 1000mg Active Finasteride 5 MG Oral for 90 A ctive glipiZIDE 5 MG TAKE 1 TABLET EVERY DAY Oral for 30 Active Atorvastatin Calcium 40 MG TAKE 1 TABLET BY MOUTH EVERY DAY Oral for 90 Active IMMUNIZATIONS Vaccine Route Administration Date Status Comme nts Influenza Unknown 04/14/2021 Refused Influenza Unknown 01/24/2024 Refused SOCIAL HISTORY Sex Assigned At : Social History Observation Description Sex Assigned At Unknown PROBLEMS Problem Type ICD Code Onset Dates Problem Status W/U Status Risk SNOMED Code Notes Problem Encounter for screening for malignant neoplasm of colon (Z12.11) Active confirmed 447530167 Problem History of adenomatous polyp of colon (Z86.010) Active confirmed 417741800 Problem Abdominal bloating (R14.0) Active confirmed Abdominal bloating (216420100) Problem Personal history of other malignant neoplasm of large intestine (Z85.038) Active confirmed History of malignant neoplasm of colon (913065915) Problem Gastroesophageal reflux disease with esophagitis (K21.0) Active confirmed 242371773 Problem History of colon cancer (Z85.038) Active confirmed 552438323 Problem Diverticulosis of colon (K57.30) Active confirmed Diverticulosi s of colon (709038464) Problem Gastroesophageal reflux disease with esophagitis without hemorrhage (K21.00) Active confirmed 430255587 VITAL SIGNS Temperature 97.5 degrees Fahrenheit 01/24/2024 Blood pressure diastolic 00 mm Hg 01/24/2024 Height 68.35 in 01/24/2024 Blood pressure systolic 000 mm Hg 01/24/2024 Weight 212 lb 6 oz lbs 01/24/2024 BMI 31.96 kg/m2 01/24/2024 Encounters Encounter Location Date Provider Diagnosis [facility] Outpatient [address] [place] [phone] 09/14/2024 Juancarlos Sher [facility] [address] [place] [phone] 01/24/2024 Juancarlos Sher History of colon can cer Z85.038 ; Abdominal bloating R14.0 ; History of adenomatous polyp of colon Z86.010 ; Encounter for screening for malignant neoplasm of colon Z12.11 ; Gastroesophageal reflux disease with esophagitis without hemorrhage K21.00 and Personal history of other malignant neoplasm of large intestine Z85.038 [facility] [address] [place] [phone] 01/26/2024 Juancarlos Sher [facility] [address] [place] [phone] 05/10/2024 Juancarlos Sher ASSESSMENTS Encounter Date Diagnosis Assessment Notes Treatment Notes Treatment Clinical Notes 01/24/2024 Abdominal bloating (ICD-10 - R14.0) Use things like Gas-X, Beano, or other Simethicone products for the gas and bloating Use Miralax once or twice a day to help with the BM's and cut down the bloating 01/24/2024 History of colon cancer (ICD-10 - Z85.038) Take only 1/2 of your Insulin on the morning before the colonoscopy and on the morning of the colonoscopy Do not take the Metformin, Glipizide, or the Pioglitazone the night before nor on the morning of the colonoscopy Do not take the aspirin for 1 week before the colonoscopy Do not take the Hydrochlorothiazide the day before nor on the day of the colonoscopy 01/24/2024 History of adenomatous polyp of colon (ICD-10 - Z86.010) 01/24/2024 Encounter for screening for malignant neoplasm of colon (ICD-10 - Z12.11) 01/24/2024 Gastroesophageal reflux disease with esophagitis without hemorrhage (ICD-10 - K21.00) 01/24/2024 Personal history of other malignant neoplasm of large intestine (ICD-10 - Z85.038) PLAN OF TREATMENT Future Test Test Name Order Date COLONOSCOPY 10/24/2014 COLONOSCOPY 04/18/2018 COLONOSCOPY 04/14/2021 COLONOSCOPY 01/24/2024 Next Appt Details Provider Name:Juancarlos Sher , 09/14/2024 08:30:00 AM, [address] [place] [address] , [place], [place], [phone], Insurance Providers Payer Name Payer Address Payer Phone Subscriber Number Group Number Insured Name Patient Relationship to Insured Coverage Start Date Coverage End Date [facility] [address] [address] [place] [address] [id number] RACHAEL AGUSTIN Self - patient is the insured MEDICAL (GENERAL) HISTORY Medical History History ICD Code Stage I colon CA of asc colo n-s/p lap. resection with Dr. Bradford in 02/2006--he did not require any chemotherapy Tubular adenomas-most recent colonoscopy was in 12/2014 and revealed a small tubular adenoma that was removed--the anastomosis and small bowel appeared normal Tubulovillous adenomas and t ubular adenomas removed during his original colonoscopy in 2005; a tubular adenoma was removed in 2006 Internal hemorrhoids IDDM HTN Denies PA,CVA,Lung disease,renal disease EGD in 04/2011 with erosive esophagitis a nd HH-no Linn's esophagus Hyperlipidemia Colonoscopy in 05/2018 with removal of a tubular adenoma SBO in 02/2020 treated with NG tube--no s urgery Kidney stones Colonoscopy May 2021 Romero ited prep and one small polyp removed but not recovered for pathology Surgical History Surgery Date(Month/Year) Right colectomy for colon cancer as per [facility] Right inguinal hernia 2022-Dr. Schulz Stimulator put in back
--- OUTSIDE RECORDS SUMMARY | 2024-09-14 07:29 | XMS_ITS ---
Author Organization [facility] Address [address] [place] [address] Care Team Providers Care Sales Promoter Name Role Phone Boo SIMS, Mahad Primary Care Provider Juancarlos Cohen Unavailable [phone] REASON FOR VISIT 2 day prep, colon screening Encounters Encounter Location Date Provider Diagnosis [facility] Out[facility] [address] [place] [phone] 09/14/2024 Juancarlos Sher PLAN OF TREATMENT Next Appt Details Provider Name:Juancarlos Sher , 09/14/2024 08:30:00 AM, [address] [place] [address] , [place], [place], [phone],
--- OUTSIDE RECORDS SUMMARY | 2024-09-14 07:29 | XMS_ITS ---
Author Organization Mahad Haddad MD Address [address] [place] [phone] Support Name Relationship Address Phone AbbiecloverRocío sorian Caregiver [address] [facility] D[address] ve [address] [place] [phone] Svetlana Maldonado Caregiver [facility] [address] [place] [phone] NoraAnderscris Caregiver [facility] [address] [place] [phone] MARSHA COOLEY Caregiver [facility] [address] [place] [phone] Candido Rodriguez Caregiver [facility] D[address] ve [address] [place] [phone] KIKI POLANCO Caregiver [address] [facility] [address] [place] [phone] Erik Vaz Caregiver [facility] sherman [address] [place] [phone] Jennifer Ji Caregiver [facility] ve [address] [place] [phone] KRISTINA CARTER Emergency Contact [address] [place] [address] RACHAEL CARTER Guarantor Unknown [phone] Care Team Providers Care Industrial Engineering Name Role Phone Mahad Haddad Primary Care Provider REASON FOR VISIT requesting test Encounters Encounter Location Date Provider Diagnosis Mahad Haddad MD [address] [place] [phone] 05/03/2024 Mahad Haddad Memory loss R41.3 Assessments Encounter Date Diagnosis (ICD Code) Assessment Notes Treatment Notes Treatment Clinical Notes Section Notes 05/03/2024 Memory loss (ICD-10 - R41.3) Plan Of Treatment Pending Test Test Name Order Date MR head/brain wo con 05/03/2024 Next Appt Details Provider Name:Mahad Jang ier, 09/21/2024 07:30:00 AM, [address], [address], [place], [phone], Provider Name:Mahad Jang ier, 09/28/2024 10:15:00 AM, [address], [address], [place], [phone], Provider Name:Mahad Jang ier, 02/26/2025 07:45:00 AM, [address], [address], [place], [phone], Provider Name:Mahad Jang ier, 03/05/2025 09:30:00 AM, [address], [place], [phone], Progress Notes * ELIZABETH CARTERDIANEDOB:[birth year] (73 yo M)Acc No.[id number]:05/03/2024 Patient:?RACHAEL CARTER :1950???Age:73 Y???Sex:Male Address: [place], [address] Subjective: * Chief Complaints: * ???Requesting test * Medical History:? * Surgical History:? * Hospitalization/Major Diagno stic Procedure:? * Medications:? Objective: Assessment: * Assessment: 1.?Memory loss - R41.3? Plan: * Treatment: * Procedure Codes:? * true * Date:? Generated for Xena purdy/Adina/eTransmitting on:?09/14/2024 07:29 AM EST
--- OUTSIDE RECORDS SUMMARY | 2024-09-14 07:29 | XMS_ITS ---
Author Organization [facility] Address [address] [place] [address] Care Team Providers Care Ventilating Expert Name Role Phone Boo SIMS, Mahad Primary Care Provider Juancarlos Cohen Unavailable [phone] REASON FOR VISIT please lock office visit note Encounters Encounter Location Date Provider Diagnosis [facility] [address] [place] [phone] 01/26/2024 Juancarlos Sher PLAN OF TREATMENT Next Appt Details Provider Name:Juancarlos Sher , 09/14/2024 08:30:00 AM, [address] [facility] , [place], [place], [phone],
--- OUTSIDE RECORDS SUMMARY | 2024-09-14 07:29 | XMS_ITS ---
Author Organization Mahad Haddad MD Address [address] [place] [phone] Care Team Providers Care Account Representative Name Role Phone Mahad Haddad Primary Care Provider REASON FOR VISIT MRI [facility] Encounters Encounter Location Date Provider Diagnosis Mahad Haddad MD [address] [place] [phone] 06/04/2024 Mahad Haddad Plan Of Treatment Next Appt Details Provider Name:Mahad Jang ier, 09/21/2024 07:30:00 AM, [address], [place], [place], [phone], Provider Name:Mahad Jang ier, 09/28/2024 10:15:00 AM, [address], [address], [place], [phone], Provider Name:Mahad Jang ier, 02/26/2025 07:45:00 AM, [address], [address], [place], [phone], Provider Name:Mahad Jang ier, 03/05/2025 09:30:00 AM, [address] [facility], [address], [place], [phone], Progress Notes * RACHAEL CARTERDOB:[birth year] (73 yo M)Acc No.[id number]:06/04/2024 Patient:?RAUL RACHAEL :1950???Age:73 Y???Sex:Male Address: [address], [place], [address] * true * Date:? Generated for Xena purdy/Adina/eTransmitting on:?09/14/2024 07:29 AM EST
--- OUTSIDE RECORDS SUMMARY | 2024-09-14 07:30 | XMS_ITS ---
Author Organization [facility] Address [address] [place] [phone] Care Team Providers Care Senior Administrative Assistant Name Role Phone Boo SIMS, Mahad Primary Care Provider Juancarlos Cohen [facility] [phone] Encounters Encounter Location Date Provider Diagnosis [facility] [address] [place] [phone] 05/10/2024 Juancarlos Sher PLAN OF TREATMENT Next Appt Details Provider Name:Juancarlos Sher , 09/14/2024 08:30:00 AM, [address] [place] [address] , [place], [place], [phone],
[2024-09-14 08:04] VITALS: BP 139/65; PULSE 91; RESP 15; TEMP 36.4; O2SAT 96
[2024-09-14] MEDS: Lactated Ringers 1,000 ML 100 ML IVCONT (08:06)
[2024-09-14 08:08] LABS: Glucose, Whole Blood 138 mg/dL (60-115)
[2024-09-14 09:41] VITALS: BP 133/64; PULSE 84; RESP 16; TEMP 36.4; O2SAT 97
--- NOTE | 2024-09-14 09:51 | PM.OP ---
Brief Operative Note Date of Service: 09/14/24 Pre-op diagnosis: Screening Post-op diagnosis: other (Polyps) Procedure: Colonoscopy to the anastomosis and SI with hot snare polypectomy x 4 Surgeon: Juancarlos Sher MD Anesthesia: MAC Was an Psychologist Military Personnel used for this Procedure?: No Estimated blood loss (mL): 0 Pathology: other (A. Distal transverse colon polyp B. Polyp near anastomosis C. Proximal transverse colon polyps) Condition: stable Disposition: PACU
[2024-09-14 09:54] VITALS: BP 147/80; PULSE 96; RESP 16; TEMP 36.6; O2SAT 98
--- NOTE | 2024-09-14 10:16 | OP_ITS ---
DATE OF SERVICE: 09/14/2024 SURGEON: Juancarlos Sher MD INDICATIONS: The patient presents for evaluation of colorectal cancer screening and personal history of colon cancer. Full consent has been obtained from him for this, including risks of bleeding and perforation. PREOPERATIVE DIAGNOSIS: POSTOPERATIVE DIAGNOSIS: PROCEDURE PERFORMED: Colonoscopy to the anastomosis and small bowel with hot snare polypectomy x 4. ESTIMATED BLOOD LOSS: COMPLICATIONS: ANESTHESIA: Medication used, monitored anesthesia care. ASSISTANTS: SPECIMENS: PREOPERATIVE DIAGNOSES: Colorectal cancer screening and personal history of colon cancer. POSTOPERATIVE DIAGNOSES: Colorectal cancer screening and personal history of colon cancer, colon polyps, diverticulosis, and internal hemorrhoids. DESCRIPTION OF PROCEDURE: The patient was placed in the left lateral decubitus position. The digital rectal exam revealed no abnormalities. The Olympus video pediatric colonoscope was entered into the rectum and advanced easily to the anastomosis. As the scope was being advanced, I did visualize an approximately 8 mm polyp at the distal transverse colon, which was removed by hot snare polypectomy and recovered by suction. The polypectomy site appeared clean, without any sign of residual polyp nor bleeding. Once at the anastomosis, I did cannulate small bowel, which appeared normal. The scope was withdrawn back in the colon. The entire anastomosis appeared normal. The scope was then slowly withdrawn assessing all mucosal surfaces carefully. Preparation was excellent after his 2 day prep. In the area just distal to the anastomosis was an approximately 6 to 8 mm polyp, which was removed by hot snare polypectomy and recovered by suction. The polypectomy site appeared clean, without any sign of residual polyp nor bleeding. In the area of what appeared to be the proximal transverse colon were 2 approximately 1.5 cm polyps. These were both removed by hot snare polypectomy. They were each recovered separately by withdrawing the scope with the polyp in a retrieval net. The scope was advanced back to the polypectomy sites, both of which appeared clean, without any sign of residual polyp nor bleeding. I did not visualize any other polyps, colitis, nor angiodysplasia. There was a mild amount of sigmoid diverticulosis. In the rectum, scope was retroflexed visualizing internal hemorrhoids, but no other pathology. The rectal mucosa appeared normal. Scope was straightened and withdrawn from the patient. He tolerated the procedure well, and was returned to the recovery area in stable condition. IMPRESSION: 1. Colon polyps. 2. Diverticulosis. 3. Internal hemorrhoids. 4. Normal anastomosis. PLAN: The results of the pathology will be checked. I would recommend another colonoscopy in 2 to 3 years for further screening. He was advised not to use any aspirin nor NSAIDs for 1 week. MD NAVARRO Kimble/MARILEE / [id number] MTDD
== END 2024-09-14 10:20 | disposition home or self-care (01) ==
PROVIDERS: PCP Internal Medicine; Visit Provider Internal Medicine
PROC: 0DJD8ZZ Inspection of Lower Intestinal Tract, Via Natural or Artificial Opening Endoscopic (ICD-10-PCS; CPT 45378; principal; 2024-09-14 08:30)
DX: Z12.11 Encounter for screening for malignant neoplasm of colon (principal); Z85.038 Personal history of other malignant neoplasm of large intestine; Z86.0101 Personal history of adenomatous and serrated colon polyps; D12.3 Benign neoplasm of transverse colon; K57.30 Diverticulosis of large intestine without perforation or abscess without bleeding; K64.8 Other hemorrhoids; K21.9 Gastro-esophageal reflux disease without esophagitis; Z87.19 Personal history of other diseases of the digestive system; I10 Essential (primary) hypertension; E78.5 Hyperlipidemia, unspecified; E11.9 Type 2 diabetes mellitus without complications; G89.4 Chronic pain syndrome; Z90.49 Acquired absence of other specified parts of digestive tract; Z96.82 Presence of neurostimulator; Z79.891 Long term (current) use of opiate analgesic; Z79.82 Long term (current) use of aspirin; Z79.4 Long term (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; Z79.84 Long term (current) use of oral hypoglycemic drugs; Z79.899 Other long term (current) drug therapy; M47.26 Other spondylosis with radiculopathy, lumbar region
CPT/HCPCS: 45385; 82947; 88305; J2003; J2704

== ENCOUNTER 2024-09-21 07:30 | Outpatient (REF) | payer MEDICARE, SELFPAY ==
--- OUTSIDE RECORDS SUMMARY | 2024-09-21 11:03 | XMS_ITS | Clinical Summary ---
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 Name Role Phone Mahad Haddad MD Primary Care Provider Allergies No known active allergies Medications acarbose (PRECOSE) 50 MG tablet Take 1 tablet by mouth 3 (three) times a day Active aspirin (ST ROBSON) 81 MG EC tablet Take 1 tablet by mouth 1 (one) time each day Active atorvastatin (LIPITOR) 40 MG tablet Take 1 tablet by mouth at bed time Active insulin glargine (Lantus SoloStar) 100 UNIT/ML injection Inject 15 Units under the skin 1 (one) time each day Active omeprazole OTC (PriLOSEC OTC) 20 MG EC tablet Take 1 tablet by mouth 2 (two) times a day Active pioglitazone (ACTOS) 15 MG tablet Take 15 mg by mouth 1 (one) time each day Active buPROPion (ZYBAN) 150 MG 12 hr tablet Take 150 mg by mouth in the morning and 150 mg in the evening. Do not crush, chew, or split. . Active finasteride (PROSCAR) 5 MG tablet Take 5 mg by mouth 1 (one) time each day Do not crush, chew, or split. Active tamsulosin (FLOMAX) 0.4 MG 24 hr capsule Take 0.4 mg by mouth 1 (one) time each day Active celecoxib (CeleBREX) 200 MG capsule Take 200 mg by mouth in the morning and 200 mg in the evening. Active Buprenorphine HCl-Naloxone HCl 2-0.5 MG film TAKE 1 FILM SUBLINGUALLY EVERY DAY 2 Active hydroCHLOROthia zide 25 MG tablet Take 25 mg by mouth 1 (one) time each day in the morning 2 Active metFORMIN (GLUCOPHAGE) 500 MG tablet Take 500 mg by mouth 1 (one) time each day 2 Active omeprazole (PriLOSEC) [address] capsule TAKE 1 CAPSULE BY MOUTH TWICE A DAY FOR HEARBURN 90 2 Active Xiidra 5 % solution Administer 1 drop into both eyes 2 (two) times a day 2 Active hydrALAZINE 100 MG tablet TAKE 1 TABLET (100 MG TOTAL) BY MOUTH IN THE MORNING AND IN THE EVENING 180 tablet 3 3 Active losartan (COZAAR) 50 MG tablet TAKE 1 TABLET BY MOUTH 1 TIME EACH DAY. 90 tablet 3 3 Active carvedilol (COREG) 12.5 MG tablet Take 12.5 mg by mouth in the morning and 12.5 mg in the evening. Take with meals. 3 Active Active Problems Problem Noted Date Diagnosed Date Backache 09/09/2021 Body mass index 30+ - obesity 09/09/2021 Disorder of lumbar disc 09/09/2021 Diverticulitis 09/09/2021 Dysthymia 09/09/2021 Heartburn 09/09/2021 History of malignant neoplasm of colon 2 Intestinal obstruction 09/09/2021 Irritable bowel syndrome 09/09/2021 Prostatism 09/09/2021 Pure hypercholesterolemia 09/09/2021 Type 2 diabetes mellitus without complication Hypertension 03/11/2021 Essential hypertension 03/10/2021 Renal stone 03/10/2021 Immunizations Name Administration Dates Next Due Influenza Split 06/11/2012 Pfizer SARS-COV-2 06/01/2021,11/30/2020,11/09/19 21 Pneumococcal Conjugate 13-Valent 02/05/2019 Social History Tobacco Use Types Packs/Day Years Used Date Smoking Tobacco: Never Smokeless Tobacco: Never Tobacco Cessation:Counseling Given: Not Answered Sex and Gender Information Value Date Recorded Sex Assigned at Not on file Legal Sex Male 5:01 PM EST Gender Identity Not on file Sexual Orientation Not on file Last Filed Vital Signs Vital Sign Reading Time Taken Comments Blood Pressure 130/80 04/27/2023 3:17 PM EDT Pulse 72 04/27/2023 3:17 PM EDT Temperature - - Respiratory Rate - - Oxygen Saturation 98% 01/26/2023 2:16 PM EDT Inhaled Oxygen Concentration - - Weight 98.2 kg (216 lb 9.6 oz) 04/27/2023 3:17 P M EDT Height 170.2 cm (5' 7 ) 01/26/2023 2:16 PM EDT Body Mass Index 33.92 01/26/2023 2:16 PM EDT Plan of Treatment Health Maintenance Due Date Last Done Comments Colorectal Cancer Screening: Annual FOBT 2001 Colorectal Cancer Screening: Colonoscopy 2001 Colorectal Cancer Screening: Sigmoidoscopy 2001 Pneumococcal Vaccine: 65+ Years (2 of 2 - PPSV23 or PCV20) 04/02/2019 02/05/2019, 02/05/2019 Diabetes: Hemoglobin A1C 09/09/2021 021, 10/16/2018, 09/23/2017, Additional history exists Diabetes: Ophthalmology Exam 09/09/2021 Diabetes: Pedal Pulse Checked 09/09/2021 Diabetes: Sensory Foot Exam 09/09/2021 Diabetes: Visual Foot Exam 09/09/2021 Influenza Vaccine (#1) 2024 06/11/2012 Hepatitis B Vaccine Aged Out No longe r eligible based on patient's age to complete this topic Insurance [facility] [place] [address] [facility] MEDICARE Care Teams Band And Cuff Cutter Relationship Specialty Start Date End Date Mahad Haddad MD [address] [place] [address] [address] [place], [place] PCP - General 08/18/20
[2024-09-21 11:09] LABS: Estimated Average Glucose 174 mg/dL; Hemoglobin A1c % 7.7 % (<6.0)
[2024-09-21 11:33] LABS: Alanine Aminotransferase 15 U/L (0-40); Albumin Level 4.1 g/dL (3.5-5.0); Alkaline Phosphatase 74 U/L (39-117); Aspartate Amino Transferase 22 U/L (5-37); Bilirubin Direct 0.1 mg/dL (0.0-0.5); Bilirubin Total 0.3 mg/dL (0.0-1.0); Cholesterol 162 mg/dL (<200); Glucose Fasting 147 mg/dL (60-99); HDL Cholesterol 63 mg/dL (>40); LDL Cholesterol Calculated 77 mg/dL (<100); Total Protein 7.7 g/dL (6.5-8.0); Triglycerides 113 mg/dL (<150)
[2024-09-21 11:46] LABS: Reflex LDLD? No
== END 2024-09-21 07:31 | disposition home or self-care (01) ==
LOC: HO.LNP 07:30
PROVIDERS: Visit Provider Internal Medicine
DX: E11.9 Type 2 diabetes mellitus without complications (principal); E78.00 Pure hypercholesterolemia, unspecified
CPT/HCPCS: 80061; 80076; 82947; 83036

== ENCOUNTER 2024-10-10 09:10 | Outpatient (AMB) | payer MEDICARE, SELFPAY ==
--- NOTE | 2024-10-10 09:11 | MHC.OFFVIS ---
Intake Visit Reasons: H&P Transurethral incision of the prostate(SET) Intake Note: Patient is present for H&P TRANSURETHRAL INCISION OF THE PROSTATE Urology Medication:FINASTERIDE Antibiotic Allergy:NONE Blood Thinner:ASPIRIN Gel Coat Sprayer Required: No Allergies No Known Allergies Allergy (Verified 10/10/24 09:12) HPI Comments Details: Isaac is a pleasant male. He is seen for the following urologic condition. - lower urinary tract symptoms Telemedicine Evaluation 15 min Consultation [employer] [place] Video Discussion for upcoming transurethral incision of prostate 12/29 bladder ultrasound 20 g prostate Northern Irish translation provided by his son All questions asked Lower urinary tract symptoms Longstanding lower urinary tract symptoms Good response to combination therapy Current therapy Flomax 0.8 mg. Finasteride Persistent nocturia 2-3 times at night Cystoscopy large trilobar hypertrophy 2019 PSA 01/25 3.25, 01/26 3.0, 11/27 1.3, 01/27 1.3, 01/28 0.6 PFSH Medical History Right groin pain Right inguinal hernia On beta lala at home Hx SBO DM2 (diabetes mellitus, type 2) Disc degeneration, lumbar Chronic pain syndrome Spondylosis of lumbosacral spine with radiculopathy GERD (gastroesophageal reflux disease) Obesity (BMI 30-39.9) Hypertension 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 associated with type 2 diabetes mellitus jail (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 Surgical History Hx of inguinal hernia repair S/P placement of nerve stimulator Hx of surgical procedure Hx of cystoscopy Hx of lithotripsy Hx of right hemicolectomy Hx of colonoscopy Hx of esophagogastroduodenoscopy Family History Father Unknown family medical history Mother Unknown family medical history Social History Are you a primary dog daycare provider to a significant other at home: No Do you presently have visiting nurse or other home services: No Alcohol intake: never Patient Tobacco Use Status: Never used Tobacco Second Hand Smoke Exposure: No Advance Directives Date on File: 09/08/14 Current occupational status: disabled 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/ Review of Systems Const All systems reviewed & are unremarkable except as noted in HPI and below Reports no additional complaints Resp Reports no additional complaints GI Reports no additional complaints Reports as per HPI Musc Reports no additional complaints Physical Exam Telemedicine evaluation Appropriate responses Regular breathing rate and rhythm HEENT Head: Yes normal to inspection Ears: hearing grossly normal bilaterally Eyes General: appearance normal, both eyes and all related structures Neck Neck: Yes normal visual inspection Chest Chest palpation & inspection: normal inspection of the chest Resp Effort & Inspection: normal respiratory effort and able to speak in complete sentences Telehealth Telehealth Telehealth Platform: [employer] Location of provider rendering services: practice address Location of patient: address on file Patient Identification confirmed using: Name, : Yes Telehealth method: video Patient verbally consented to treatment: Yes Patient verbally consented to billing insurance company: Yes Patient informed of any privacy concerns related to visit: Yes Minutes spent on Phone/Video with Pt.: 15 Assessment & Plan Assessment & Plan (1) BPH w urinary obs/LUTS: Code(s): N40.1 - Benign prostatic hyperplasia with lower urinary tract symptoms; N13.8 - Other obstructive and reflux uropathy Category: Medical (2) Urinary hesitancy: Code(s): R39.11 - Hesitancy of micturition Category: Medical Plan Risks, benefits and alternatives to therapy were discussed. These include but are not limited to infection, bleeding, damage to local organs and tissues, need for further interventions. Anesthetic risks regarding cardiac arrhythmia, blood clots, and potential mortality were discussed. The patient understands the typical recovery time and the outpatient nature of the procedure. After consideration of these risks the patient gives full informed consent and they wish to move ahead with the procedure. - plasma button transurethral incision of the prostate Patient Instructions: This note is constructed using voice recognition software. While every effort has been made to ensure accuracy systems software developer errors may have been included. Imaging studies, laboratory and physical exam results were discussed and reviewed in detail. No major barriers to patient understanding were identified. An opportunity to ask questions regarding the treatment plan was provided. All questions were answered. The patient expressed understanding and agreement with the above treatment plan. The patient is aware they should contact our office by phone for worsening of their current condition or the appearance of new urologic symptoms. Compliance is encouraged with any medications and followup testing that is ordered. It is a privilege to participate in the urologic care of your patient. If you have any questions or concerns regarding treatment for the above conditions, or other urologic issues, please do not hesitate to contact me. The office telephone contact is [phone]. Sincerely, Dr Rafita Garland MD, [facility] - Urology Compassionate Specialist Care for the Genitourinary System Coding Level of Care Code Tele Est Pt Level 3 (21558) Diagnoses BPH w urinary obs/LUTS N40.1; N13.8 Urinary hesitancy R39.11
--- OUTSIDE RECORDS SUMMARY | 2024-10-10 10:06 | XMS_ITS | Clinical Summary ---
Author Organization [facility] Address [address] [place] [address] Phone Care Team Providers Care Head Cager Name Role Phone Mahad Haddad MD Primary Care Provider [phone] Allergies No known active allergies Medications acarbose [...] patient's age to complete this topic Insurance [facility] MEDICARE [facility] MEDICARE Care Teams Head Cager Relationship Specialty Start Date End Date Mahad Haddad MD [address] [place] [address] [id number] [place], [place] PCP - General 08/18/20
--- OUTSIDE RECORDS SUMMARY | 2024-10-10 10:06 | XMS_ITS | Patient Health Record ---
Author Organization [facility] Address [address] [place] [address] Care Team Providers Care Direct Sales Consultant Name Role Phone Boo SIMS, Mahad Primary Care Provider Juancarlos Cohen Unavailable [phone] Allergies No Known Allergies Results Component Value Reference Range Notes Pathology (Not yet reviewed by provider) Interpretation: Performing Lab:[facility], [address] [place] [id number] Notes/Report: ---- Name: Rachael Agustin Age/Sex: 74/M : 1950 Unit#: [id number] Attend Dr: Juancarlos Sher MD Re09/14/24 Status : [facility] Location: [facility] Disch: ---- SPEC : [id number] RECD: 09/14/24 STATUS: TANI KAUFMAN NUM: [id number] KEYSHAWN: 09/14/2442 [facility] DR: Juancarlos Sher MD ENTERED: 09/14/24- 43 SP TYPE: Surgical OTHR DR: Mahad Haddad MD ORDERED: HE Stain/9, Gross Micro L4/3 Diagnosis A. Colon, distal transverse, polyp: Tubular adenoma; negative for high-grade dysplasia and carcinoma. B. Colon, near anastomosis, polyp: Tubular adenoma; negative for high-grade dysplasia and carcinoma. C. Colon, proximal transverse, polyp: Tubular adenoma, likely excised; negative for high-grade dysplasia and carcinoma. Clinical History Pre-Op Dx: History o f polyps Post-Op Dx: Polyps, diverticulosis, hemorrhoids Microscopic Description Microscopic sections reviewed. Material Received A. Distal transverse colon polyp B. Polyp near anastomosis C. Proximal transver se colon polyp Gross Description Received in 3 parts. A. Received in forma As Seen on TV labeled ?distal transverse colon polyp? are fragments of henriquez-white soft tissue measurin g 0.1-0.4 cm in greatest dimension, forming an aggregate measuring 0.8 x 0.6 x 0.2 cm which i s wrapped in lens paper and entirely submitted for microscopic examination, multipl e pieces in cassette A. B. Received in forma poncho labeled ?polyp near anastomosis? are 4 fragments of pink white soft tissue measuring 0.2 -0.5 cm in greatest dimension which are wrapped in lens paper and entirely submitted f or microscopic examination, 4 pieces in cassette B. C. Received in forma As Seen on TV labeled ?proximal transverse colon polyp? are 2 rounded, polypoid portions of red-pink tissue. The smaller measures 1.0 x 0.8 x 0.7 cm in greatest dimension. The outer surface is smooth. The underside is henriquez-white and unremarkable. The underside is inked blue. The specimen is trisected, wrapped in lens paper and entirely submitted for microscopic examinat ion, 3 pieces in cassette C1. CONTINUED ON NEXT PAGE ---- Name: Rachael Agustin Age/Sex: 74/M : 1950 Unit#: [id number] Attend Dr: Juancarlos Sher MD Re09/14/24 Status : [facility] Location: [facility] Disch: ---- SPEC : [id number] RECD: 09/14/24 STATUS: [facility] NUM: [id number] KEYSHAWN: 09/14/[address] [facility] [address]: Juancarlos hSer MD ENTERED: 09/14/24- 43 SP TYPE: Surgical OTHR DR: Mahad Haddad MD ORDERED: HE Stain/9, Gross Micro L4/3 Gross Description (Continued) The larger measures 1.5 x 1.2 x 0.9 cm in greatest dimension. The outer surface is smooth. The base shows a 0.3 cm in diameter resection site. The resection site is inked blue. The specimen is serially sectioned and entirely submitted for microscopic examination, 4 pieces in cassette C2. [facility] Copies To: Mahad Haddad MD [facility] [address] [place] [address] Juancarlos Sher MD [facility] [address] [place] [address] ---- Signed (signature on file) Leora Ezio 09/17/24 1235 ---- END OF REPORT Glucose, Whole Blood Reviewed date:09/14/2024 02:25:32 PM Interpretation: Performing Lab:[facility], [address] [place] [phone] Notes/Report: Glucose, Whole Blood 138 60-115 mg/dL METER # : [id number] Reason For Referral No Information Medications Medication SIG (Take, Route, Frequency, Duration) Notes Start Date End Date Status Acarbose 50 MG TAKE 1 TABLET BY SUDHAKAR THREE TIMES A DAY Oral for 30 Active Dicyclomine HCl 10 MG 1 or 2 capsules Or ally Every 6 hours as needed for abdominal bloating, cramps, discomfort for 30 day(s) 01/24/2024 Active Metoprolol Succinate ER 100 MG TAKE 1 TABLET BY MOUTH EVERY DAY AT NIGHT Oral for 30 Active hydrALAZINE HCl 50 MG TAKE 1 and 1/2 TAB LET BY MOUTH 3 TIMES A DAY Oral Three times a day Active Omeprazole 20 MG TAKE 1 CAPSULE BY [facility] TWICE A DAY FOR HEARBURN 90 for 90 Active Buprenorphine HCl-Naloxone HCl 2-0.5 MG Sublingual [...] MOUTH EVERY DAY Oral for 90 Active Immunizations Vaccine Route Administration Date Status Comme nts Influenza Unknown 04/14/2021 Refused Influenza Unknown 01/24/2024 Refused Problems Problem Type SNOMED Code ICD Code Onset Dates Problem Status W/U Status Risk Notes Problem [id number] Encounter for screening for malignant neoplasm of colon (Z12.11) Active confirmed Problem 058798676 History of adenomatous polyp of colon (Z86.010) Active confirmed Problem Abdominal bloating (416324575) Abdominal bloating (R14.0) Active confirmed Problem Diverticular disease of colon (816029798) Diverticulosis of large intestine without perforation or abscess without bleeding (K57.30) Active confirmed Problem History of malignant neoplasm of colon (098881651) Personal history of other malignant neoplasm of large intestine (Z85.038) Active confirmed Problem History of gastrointestinal tract bypass (470211609) Intestinal bypass and anastomosis status (Z98.0) Active confirmed Problem 919919856 Gastroesophageal reflux disease with esophagitis (K21.0) Active confirmed Problem 892375088 History of colon cancer (Z85.038) Active confirmed Problem Diverticulosis of colon (904439629) Diverticulosis of colon (K57.30) Active confirmed Problem 844052958 Gastroesophageal reflux disease with esophagitis without hemorrhage (K21.00) Active confirmed Vital Signs Temperature 97.5 degrees Fahrenheit 01/24/2024 Blood pressure diastolic 00 mm Hg 01/24/2024 Height 68.35 in 01/24/2024 Blood pressure systolic 000 mm Hg 01/24/2024 Weight 212 lb 6 oz lbs 01/24/2024 BMI 31.96 kg/m2 01/24/2024 Encounters Encounter Location Date Provider Diagnosis [facility] [address] [place] [id number] 09/14/2024 Juancarlos Sher Colon cancer screeni ng Z12.11 ; Colon polyps K63.5 ; Personal history of other malignant neoplasm of large intestine Z85.038 ; Intestinal bypass and anastomosis status Z98.0 ; Diverticulosis of large intestine without perforation or abscess without bleeding K57.30 and Other hemorrhoids K64.8 [facility] [address] [place] [address] 01/24/2024 Juancarlos Sher History of colon can cer Z85.038 ; Abdominal bloating R14.0 ; History of adenomatous polyp of colon Z86.010 ; Encounter for screening for malignant neoplasm of colon Z12.11 ; Gastroesophageal reflux disease with esophagitis without hemorrhage K21.00 and Personal history of other malignant neoplasm of large intestine Z85.038 [facility] [address] [place] [address] 01/26/2024 Juancarlos Sher [facility] [address] [place] [address] 05/10/2024 Juancarlos Sher Assessments Encounter Date Diagnosis (ICD Code) Assessment Notes Treatment Notes Treatment Clinical Notes Section Notes 09/14/2024 Colon cancer screening (ICD-10 - Z12.11) 09/14/2024 Colon polyps (ICD-10 - K63.5) 01/24/2024 Abdominal bloating (ICD-10 - R14.0) Use things like Gas-X, Beano, or other Simethicone products for the gas and bloating Use Miralax once or twice a day to help with the BM's and cut down the bloating Overall, Rachael appears well from a clinical standpoint. His abdominal exam does not show any signs of obstruction at this time. I suspect part of his problem may be in relation to some component of constipation given the poor prep on his colonoscopy in 2020 despite having used a full cleanout for the colonoscopy, his current symptomatolog y, his clinical history, his good clinical appearance, and the fact that his abdominal x-ray from this year did not appear particularly different from that of 2018 in regard to dilated loops of small bowel. As such, I did recommend he begin using MiraLax once or twice a day on a regular basis. Hopefully by improving his bowel movement evacuations that will help cut down his sense of bloating and gas. I also recommended that he try some ydyu-tui-rkdw ter simethicone products regularly. I shall give him a prescription to try dicyclomine for symptomatic relief of any component of irritable bowel syndrome as well. Given his personal history of colon cancer and colon polyps, his last colonoscopy being almost 3 years ago but with a limited prep, and his current symptoms, I have recommended a colonoscopy for further evaluation with a 2 day prep to hopefully allow for a better cleanout. He was given the below instructions regarding adjustment of all his medications for the procedure. I also asked his son to go through his medications at home and give me a complete list of what he is actually taking so I can be sure our medication list is up to date and he does not need any other adjustments for the colonoscopy. Full consent was obtained for the colonoscopy, including risks of bleeding and perforation. We did review the rationale for that in regard to the prevention and/or early detection of colon cancer. The colonoscopy will be done with monitored anesthesia care. Overall, I advised Rachael and his son that I doubt his current symptoms are related to any type of problem at the anastomosis or an obstruction from adhesions, but may be related more to a component of constipation with bloating and gas on that basis. However, I did advise them to certainly be aware of any potential symptoms of an obstruction that would require Rachael to go to the ER such as any worsening abdominal pain, vomiting, and persistent abdominal distention. Of note, I did advise his son who is 40 years old that he should certainly undergo a colonoscopy for screening at some point given his father's history of colon cancer in his early 50s. I recommended that his son arrange that through his primary care physician. Rachael and his son were very comfortable with this plan. Thank you again for allowing me to participate in Rachael's care. I shall continue to keep you advised of his progress. 01/24/2024 History of colon cancer (ICD-10 - [...] nor on the day of the colonoscopy Overall, Rachael appears well from a clinical standpoint. His abdominal exam does not show any signs of obstruction at this time. I suspect part of his problem may be in relation to some component of constipation given the poor prep on his colonoscopy in 2020 despite having used a full cleanout for the colonoscopy, his current symptomatolog y, his clinical history, his good clinical appearance, and the fact that his abdominal x-ray from this year did not appear particularly different from that of 2018 in regard to dilated loops of small bowel. As such, I did recommend he begin using MiraLax once or twice a day on a regular basis. Hopefully by improving his bowel movement evacuations that will help cut down his sense of bloating and gas. I also recommended that he try some lbpz-jwu-vseu ter simethicone products regularly. I shall give him a prescription to try dicyclomine for symptomatic relief of any component of irritable bowel syndrome as well. Given his personal history of colon cancer and colon polyps, his last colonoscopy being almost 3 years ago but with a limited prep, and his current symptoms, I have recommended a colonoscopy for further evaluation with a 2 day prep to hopefully allow for a better cleanout. He was given the below instructions regarding adjustment of all his medications for the procedure. I also asked his son to go through his medications at home and give me a complete list of what he is actually taking so I can be sure our medication list is up to date and he does not need any other adjustments for the colonoscopy. Full consent was obtained for the colonoscopy, including risks of bleeding and perforation. We did review the rationale for that in regard to the prevention and/or early detection of colon cancer. The colonoscopy will be done with monitored anesthesia care. Overall, I advised Rachael and his son that I doubt his current symptoms are related to any type of problem at the anastomosis or an obstruction from adhesions, but may be related more to a component of constipation with bloating and gas on that basis. However, I did advise them to certainly be aware of any potential symptoms of an obstruction that would require Rachael to go to the ER such as any worsening abdominal pain, vomiting, and persistent abdominal distention. Of note, I did advise his son who is 40 years old that he should certainly undergo a colonoscopy for screening at some point given his father's history of colon cancer in his early 50s. I recommended that his son arrange that through his primary care physician. Rachael and his son were very comfortable with this plan. Thank you again for allowing me to participate in Rachael's care. I shall continue to keep you advised of his progress. 09/14/2024 Personal history of other malignant neoplasm of large intestine (ICD-10 - Z85.038) 01/24/2024 History of adenomatous polyp of colon (ICD-10 - Z86.010) Overall, Rachael appears well from a clinical standpoint. His abdominal exam does not show any signs of obstruction at this time. I suspect part of his problem may be in relation to some component of constipation given the poor prep on his colonoscopy in 2020 despite having used a full cleanout for the colonoscopy, his current symptomatolog y, his clinical history, his good clinical appearance, and the fact that his abdominal x-ray from this year did not appear particularly different from that of 2018 in regard to dilated loops of small bowel. As such, I did recommend he begin using MiraLax once or twice a day on a regular basis. Hopefully by improving his bowel movement evacuations that will help cut down his sense of bloating and gas. I also recommended that he try some urll-rwu-peqe ter simethicone products regularly. I shall give him a prescription to try dicyclomine for symptomatic relief of any component of irritable bowel syndrome as well. Given his personal history of colon cancer and colon polyps, his last colonoscopy being almost 3 years ago but with a limited prep, and his current symptoms, I have recommended a colonoscopy for further evaluation with a 2 day prep to hopefully allow for a better cleanout. He was given the below instructions regarding adjustment of all his medications for the procedure. I also asked his son to go through his medications at home and give me a complete list of what he is actually taking so I can be sure our medication list is up to date and he does not need any other adjustments for the colonoscopy. Full consent was obtained for the colonoscopy, including risks of bleeding and perforation. We did review the rationale for that in regard to the prevention and/or early detection of colon cancer. The colonoscopy will be done with monitored anesthesia care. Overall, I advised Rachael and his son that I doubt his current symptoms are related to any type of problem at the anastomosis or an obstruction from adhesions, but may be related more to a component of constipation with bloating and gas on that basis. However, I did advise them to certainly be aware of any potential symptoms of an obstruction that would require Rachael to go to the ER such as any worsening abdominal pain, vomiting, and persistent abdominal distention. Of note, I did advise his son who is 40 years old that he should certainly undergo a colonoscopy for screening at some point given his father's history of colon cancer in his early 50s. I recommended that his son arrange that through his primary care physician. Rachael and his son were very comfortable with this plan. Thank you again for allowing me to participate in Rachael's care. I shall continue to keep you advised of his progress. 09/14/2024 Intestinal bypass and anastomosis status (ICD-10 - Z98.0) 01/24/2024 Encounter for screening for malignant neoplasm of colon (ICD-10 - Z12.11) Overall, Rachael appears well from a clinical standpoint. His abdominal exam does not show any signs of obstruction at this time. I suspect part of his problem may be in relation to some component of constipation given the poor prep on his colonoscopy in 2020 despite having used a full cleanout for the colonoscopy, his current symptomatolog y, his clinical history, his good clinical appearance, and the fact that his abdominal x-ray from this year did not appear particularly different from that of 2018 in regard to dilated loops of small bowel. As such, I did recommend he begin using MiraLax once or twice a day on a regular basis. Hopefully by improving his bowel movement evacuations that will help cut down his sense of bloating and gas. I also recommended that he try some dgds-fxb-whfi ter simethicone products regularly. I shall give him a prescription to try dicyclomine for symptomatic relief of any component of irritable bowel syndrome as well. Given his personal history of colon cancer and colon polyps, his last colonoscopy being almost 3 years ago but with a limited prep, and his current symptoms, I have recommended a colonoscopy for further evaluation with a 2 day prep to hopefully allow for a better cleanout. He was given the below instructions regarding adjustment of all his medications for the procedure. I also asked his son to go through his medications at home and give me a complete list of what he is actually taking so I can be sure our medication list is up to date and he does not need any other adjustments for the colonoscopy. Full consent was obtained for the colonoscopy, including risks of bleeding and perforation. We did review the rationale for that in regard to the prevention and/or early detection of colon cancer. The colonoscopy will be done with monitored anesthesia care. Overall, I advised Rachael and his son that I doubt his current symptoms are related to any type of problem at the anastomosis or an obstruction from adhesions, but may be related more to a component of constipation with bloating and gas on that basis. However, I did advise them to certainly be aware of any potential symptoms of an obstruction that would require Rachael to go to the ER such as any worsening abdominal pain, vomiting, and persistent abdominal distention. Of note, I did advise his son who is 40 years old that he should certainly undergo a colonoscopy for screening at some point given his father's history of colon cancer in his early 50s. I recommended that his son arrange that through his primary care physician. Rachael and his son were very comfortable with this plan. Thank you again for allowing me to participate in Rachael's care. I shall continue to keep you advised of his progress. 09/14/2024 Diverticulosis of large intestine without perforation or abscess without bleeding (ICD-10 - K57.30) 01/24/2024 Gastroesophageal reflux disease with esophagitis without hemorrhage (ICD-10 - K21.00) Overall, Rachael appears well from a clinical standpoint. His abdominal exam does not show any signs of obstruction at this time. I suspect part of his problem may be in relation to some component of constipation given the poor prep on his colonoscopy in 2020 despite having used a full cleanout for the colonoscopy, his current symptomatolog y, his clinical history, his good clinical appearance, and the fact that his abdominal x-ray from this year did not appear particularly different from that of 2018 in regard to dilated loops of small bowel. As such, I did recommend he begin using MiraLax once or twice a day on a regular basis. Hopefully by improving his bowel movement evacuations that will help cut down his sense of bloating and gas. I also recommended that he try some gbac-ddv-owjr ter simethicone products regularly. I shall give him a prescription to try dicyclomine for symptomatic relief of any component of irritable bowel syndrome as well. Given his personal history of colon cancer and colon polyps, his last colonoscopy being almost 3 years ago but with a limited prep, and his current symptoms, I have recommended a colonoscopy for further evaluation with a 2 day prep to hopefully allow for a better cleanout. He was given the below instructions regarding adjustment of all his medications for the procedure. I also asked his son to go through his medications at home and give me a complete list of what he is actually taking so I can be sure our medication list is up to date and he does not need any other adjustments for the colonoscopy. Full consent was obtained for the colonoscopy, including risks of bleeding and perforation. We did review the rationale for that in regard to the prevention and/or early detection of colon cancer. The colonoscopy will be done with monitored anesthesia care. Overall, I advised Rachael and his son that I doubt his current symptoms are related to any type of problem at the anastomosis or an obstruction from adhesions, but may be related more to a component of constipation with bloating and gas on that basis. However, I did advise them to certainly be aware of any potential symptoms of an obstruction that would require Rachael to go to the ER such as any worsening abdominal pain, vomiting, and persistent abdominal distention. Of note, I did advise his son who is 40 years old that he should certainly undergo a colonoscopy for screening at some point given his father's history of colon cancer in his early 50s. I recommended that his son arrange that through his primary care physician. Rachael and his son were very comfortable with this plan. Thank you again for allowing me to participate in Rachael's care. I shall continue to keep you advised of his progress. 09/14/2024 Other hemorrhoids (ICD-10 - K64.8) 01/24/2024 Personal history of other malignant neoplasm of large intestine (ICD-10 - Z85.038) Overall, Rachael appears well from a clinical standpoint. His abdominal exam does not show any signs of obstruction at this time. I suspect part of his problem may be in relation to some component of constipation given the poor prep on his colonoscopy in 2020 despite having used a full cleanout for the colonoscopy, his current symptomatolog y, his clinical history, his good clinical appearance, and the fact that his abdominal x-ray from this year did not appear particularly different from that of 2018 in regard to dilated loops of small bowel. As such, I did recommend he begin using MiraLax once or twice a day on a regular basis. Hopefully by improving his bowel movement evacuations that will help cut down his sense of bloating and gas. I also recommended that he try some wgbt-ixd-ustw ter simethicone products regularly. I shall give him a prescription to try dicyclomine for symptomatic relief of any component of irritable bowel syndrome as well. Given his personal history of colon cancer and colon polyps, his last colonoscopy being almost 3 years ago but with a limited prep, and his current symptoms, I have recommended a colonoscopy for further evaluation with a 2 day prep to hopefully allow for a better cleanout. He was given the below instructions regarding adjustment of all his medications for the procedure. I also asked his son to go through his medications at home and give me a complete list of what he is actually taking so I can be sure our medication list is up to date and he does not need any other adjustments for the colonoscopy. Full consent was obtained for the colonoscopy, including risks of bleeding and perforation. We did review the rationale for that in regard to the prevention and/or early detection of colon cancer. The colonoscopy will be done with monitored anesthesia care. Overall, I advised Rachael and his son that I doubt his current symptoms are related to any type of problem at the anastomosis or an obstruction from adhesions, but may be related more to a component of constipation with bloating and gas on that basis. However, I did advise them to certainly be aware of any potential symptoms of an obstruction that would require Rachael to go to the ER such as any worsening abdominal pain, vomiting, and persistent abdominal distention. Of note, I did advise his son who is 40 years old that he should certainly undergo a colonoscopy for screening at some point given his father's history of colon cancer in his early 50s. I recommended that his son arrange that through his primary care physician. Rachael and his son were very comfortable with this plan. Thank you again for allowing me to participate in Rachael's care. I shall continue to keep you advised of his progress. Plan Of Treatment Pending Test Test Name Order Date Pathology 09/14/2024 Future Test Test Name Order Date COLONOSCOPY 10/24/2014 COLONOSCOPY 04/18/2018 COLONOSCOPY 04/14/2021 COLONOSCOPY 01/24/2024 Insurance Providers Payer Name Payer Address Payer Phone Subscriber Number Group Number Insured Name Patient Relationship to Insured Coverage Start Date Coverage End Date [facility] [address] [address] [place] [address] [id number] RAULRACHAEL HUANG Self - patient is the insured Medical (General) History Medical History History ICD Code Stage I [...] in 2006 Internal hemorrhoids IDDM HTN Denies [place],CVA,Lung disease,renal disease EGD in 04/2011 with erosive esophagitis a nd HH-no Linn's esophagus Hyperlipidemia Colonoscopy in 05/2018 with removal of a tubular adenoma SBO in 02/2020 treated with NG tube--no s urgery Kidney stones Colonoscopy May 2021 Romero ited prep and one small polyp removed but not recovered for pathology Surgical History Surgery Date(Month/Year) Right colectomy for colon cancer as per [facility] Right inguinal hernia 2022-Dr. Schulz Stimulator put in back
--- OUTSIDE RECORDS SUMMARY | 2024-10-10 10:06 | XMS_ITS ---
Author Organization Mahad Haddad MD Address [address] [place] [address] [phone] Support Name Relationship Address Phone AbbiecloverRocío sorian Caregiver [address] [facility] Dri ve [address] [place] [address] [phone] Svetlana Maldonado [facility]iver [facility] [address] [place] [address] [phone] NoraLeanamary Caregiver [address] [facility] D[address] [place] [address] [phone] MARSHA COOLEY [facility]giver [facility] [address] [place] [address] [phone] Candido Rodriguez [facility]giver [facility] [address] [place] [address] [phone] KIKI POLANCO Caregiver [address] [facility] [address] [place] [address] [phone] Erik Vaz Caregiver [facility] sherman [address] [place] [address] [phone] Jennifer Ji Caregiver 10 [facility] ve [address] [place] [address] [phone] KRISTINA CARTER Emergency Contact [address] [place] [address] RACHAEL CARTER Guarantor Unknown [phone] Care Team Providers Care Top Inventory Control Executive Name Role Phone Mahad Haddad Primary Care Provider REASON FOR VISIT fasting lipids Encounters Encounter Location Date Provider Diagnosis Mahad Haddad MD [address] [place] [address] [phone] 09/21/2024 Mahad Haddad Type 2 diabetes margi [...] A1c 09/21/2024 Next Appt Details Provider Name:Mahad Jang ier, 02/26/2025 07:45:00 AM, [address] [place] [address], Suite [facility], [place], [phone], Provider Name:Mahad Jang ier, 03/05/2025 09:30:00 AM, [address] [place] [address], Suite [facility], [place], [phone], Provider Name:Mahad Jang ier, 10/03/2025 11:00:00 AM, [address] [place] [address], Suite [facility], [place], [place], [phone], Progress Notes * RACHAEL CARTERDOB:[birth year] (74 yo M)Acc No.[id number]:09/21/2024 Progress Note Patient:RACHAEL GUTIERREZ Provider:?Mahad Haddad MD :1950???Age:74 Y???Sex:Male Alfie e:09/21/2024 [facility] [address] [id number] Subjective: * Chief Complaints: * ???1. Fasting lipids. * Medical History:? Objective: * Vitals:? Assessment: * Assessment: 1.?Type 2 diabetes mellitus without complication - E11.9 (Primary)???2.?Pure hypercholesterolemia - E78.00??? Plan: * Treatment: 2.?Pure hypercholesterolemia ?LAB: Liver Panel ?LAB: Glucose Fasting ?LAB: Lipid Panel with Reflex ?LAB: Hemoglobin A1c * Procedure Codes:?82528 VENIP UNCT, ROUTINE* * * The named appointment provid er may or may not be the originator of this progress note, and it is not deemed complete until electronically signed by the appointment provider. Sign off status: Pending * Provider:?Mahad Haddad MD Date:?0 09/21/2024 Generated for Xena purdy/Adina/Aide on:?10/10/2024 10:06 AM EST
--- OUTSIDE RECORDS SUMMARY | 2024-10-10 10:06 | XMS_ITS ---
Author Organization [facility] Address [address] [place] [address] Care Team Providers Care Water Resource Engineering Specialist Name Role Phone Boo SIMS, Mahad Primary Care Provider Juancarlos Cohen [phone] REASON FOR VISIT 2 day prep, colon screening Problems Problem Type SNOMED Code ICD Code Onset Dates Problem Status W/U Status Risk Notes Problem History of gastrointestinal tract bypass (574416989) Intestinal bypass and anastomosis status (Z98.0) Active confirmed Problem Diverticular disease of colon (164097917) Diverticulosis of large intestine without perforation or abscess without bleeding (K57.30) Active confirmed Encounters Encounter Location Date Provider Diagnosis [facility] [place] [address] [place], [place] [phone] 09/14/2024 Juancarlos Sher Colon cancer scree geeta [...] Notes * RACHAEL AGUSTINDOB: (74 yo M)Acc No.[id number]:09/14/2024 COLON WITH MAC Patient:?ELIZABETH AGUSTIN Provider:?Juancarlos Sher MD :1950???Age:74 Y???Sex:Male Alfie e:09/14/2024 Address: [address], [facility] Pcp:Mahad Haddad MD Subjective: * Chief Complaints: * ???1. 2 day prep, colon scre ening. * Medical History:? Objective: * Vitals:? Assessment: * Assessment: 1.?Colon cancer screening - Z12.11 (Primary)???2.?Colon polyps - K63.5???3.?Personal history of other malignant neoplasm of large intestine - Z85.038???4.?Intestinal bypass and anastomosis status - Z98.0???5.?Diverticulosis of large intestine without perforation or abscess without bleeding - K57.30???6.?Other hemorrhoids - K64.8??? Plan: * Treatment: * Procedure Codes:?01143 LESIO N REMOVAL COLONOSCOPY, Modifiers: PT , 0529F INTRVL 3+YRS PTS CLNSCP DOCD, 0528F RCMND FLW-UP 10 YRS DOCD, Modifiers: 1P * * The named appointment provid er may or may not be the originator of this progress note, and it is not deemed complete until electronically signed by the appointment provider. Sign off status: Pending * Provider:?Juancarlos Sher MD Date:? 025 Generated for Xena purdy/Adina/eTransmitting on:?10/10/2024 10:06 AM EST
--- OUTSIDE RECORDS SUMMARY | 2024-10-10 10:07 | XMS_ITS ---
Author Organization Mahad Haddad MD Address [address] [place] [phone] Care Team Providers Care School Treasurer Name Role Phone Mahad Haddad Primary Care Provider [phone] REASON FOR VISIT last note Encounters Encounter Location Date Provider Diagnosis Mahad Haddad MD [address] [place] [phone] 09/28/2024 Mahad Haddad Plan Of Treatment Next Appt Details Provider Name:Mahad Jang iesandra, 02/26/2025 07:45:00 AM, [address] [facility], [address], [place], [phone], Provider Name:Mahad Jang ier, 03/05/2025 09:30:00 AM, [address] [facility], [address], [place], [phone], Provider Name:Mahad Jang ier, 10/03/2025 11:00:00 AM, [address] [facility], [address], [place], [phone], Progress Notes * RACHAEL CARTERDOB:[birth year] (74 yo M)Acc No.[id number]:09/28/2024 Patient:?RACHAEL CARTER :1950???Age:74 Y???Sex:Male Address: [address], [place], [address] * true * Date:? Generated for Xena purdy/Adina/eTransmitting on:?10/10/2024 10:07 AM EST
--- OUTSIDE RECORDS SUMMARY | 2024-10-10 10:07 | XMS_ITS ---
Author Organization [facility] Address [address] [place] [address] Care Team Providers Care Guest Services Attendant Name Role Phone Boo SIMS, Mahad Primary Care Provider Juancarlos Cohen [phone] Encounters Encounter Location Date Provider Diagnosis [facility] [address] [place] [address] 05/10/2024 Juancarlos Sher Plan Of Treatment No Information Progress Notes * RACHAEL AGUSTINDOB: (73 yo M)Acc No.[id number]:05/10/2024 Patient:?RAUL ELIZABETH HEALY :1950???Age:73 Y???Sex:Male Address:[address] [place] [address] * true * Date:? Generated for Xena purdy/Adina/eTransmitting on:?10/10/2024 10:07 AM EST
--- OUTSIDE RECORDS SUMMARY | 2024-10-10 10:07 | XMS_ITS ---
Author Organization [facility] Address [address] [place] [phone] Care Team Providers Care Package Winder Name Role Phone Boo SIMS, Mahad Primary Care Provider Juancarlos Cohen [phone] REASON FOR VISIT please lock office visit note Encounters Encounter Location Date Provider Diagnosis [facility] [address] [place] [phone] 01/26/2024 Juancarlos Sher Plan Of Treatment No Information Progress Notes * RACHAEL AGUSTINDOB: (73 yo M)Acc No.[id number]:01/26/2024 Patient:?ELIZABETH AGUSTIN :1950???Age:73 Y???Sex:Male Address:[address] [place] [address] * true * Date:? Generated for Abdelrahmani rajwinder/Adina/eTransmitting on:?10/10/2024 10:07 AM EST
--- OUTSIDE RECORDS SUMMARY | 2024-10-10 10:07 | XMS_ITS ---
Author Organization Mahad Haddad MD Address [address] [place] [phone] Care Team Providers Care Accounts Collector Name Role Phone Mahad Haddad Primary Care [...] day for 30 days 08/29/2023 Active Pen [place] 33G X 4 MM as directed sq [...] Location Date Provider Diagnosis Mahad Haddad MD [address] [place] [phone] 09/28/2024 Mahad Haddad Type 2 diabetes mellitus [...] [place] Provider Name:Mahad de la paz, 02/26/2025 07:45:00 AM, [address] [place] [address], [address], [phone], Provider Name:Mahad de la paz, 03/05/2025 09:30:00 AM, [address] [place] [address], [address], [phone], Provider Name:Mahad de la paz, 10/03/2025 11:00:00 AM, [address] [place] [address], [address], [phone], Progress Notes * CHARLY CARTER:[birth year] (74 yo M)Acc No.[id number]:09/28/2024 Progress Note Patient:?RACHAEL CARTER Provider:?Mahad Haddad MD :1950???Age:74 Y???Sex:Male Alfie e:09/28/2024 Address: [address], [id number] Subjective: * Chief Complaints: * ???6 months DM, AWVAccompani ed by son * HPI: ???Annual Wellness Visit:?74 year old male presents with c/o of?Annual Wellness Visit , Annual Wellness Visit.?Medical / Social History Reviewed?The following items were reviewed and updated during today's visit?Past Medical History, [place] of Care, Surgical/Hospitalization History, Current medications including OTC and supplements, Family History, Tobacco use, Alcohol use, Illicit drug use.?Home Safety?Throw rugs??No,?Grab bars??Yes In bathroom and by exteriror door,?Raised toilet seats??Yes Seat with Rails is installed at home,?Working smoke detectors??Yes,?Working carbon monoxide detectors??Yes.?Activities of Daily Living (ADLs)?Difficulty bathing or showering??Yes independently but has become more difficult,?Difficulty dressing??Yes can still perform dressing independantly,?Difficulty using the toilet??No,?Difficulty getting in and out of bed??No,?Difficulty walking??Yes moderate difficulty, using walker outside of house and at night,?Receives help from another person with any of the above?Yes Has help from family members.?End-of-Life Planning?End of Life Planning?Not needed.?Answers for HPI/ROS submitted by the patient?Change in Weight?No,?Change in hearing?No.?HRA filled out by the patient, reviewed by Provider and scanned. HRA filled out by the patient, reviewed by Provider and scanned. ???Fall Risk:?History?Have you had two or more falls in the past year??No,?Have you had any falls with injury in the past year??No.?Depression Screening:?PHQ-9?Thoughts that you would be better off or of hurting yourself in some way?Not at all,?Total Score?9,?Interpretation?Mild Depression.?Interpretation and Intervention?Depression Screening Findings?Negative,?Follow-Up for Depression?: review of PHQ-9 found negative result, no follow-up needed.?SDOH Questions:?SDOH Questions?In the past year have you been worried about losing housing??No,?In the past year have you or any family members you live with been unable to get any of the following when it was really needed? Check all that apply:?None.?Symptom(s):? patient is a 74 yo male here for 6 month follow up visit and review of DM. * ROS:?General/Constitutional:?Patient complaining of?change in appetite, sleep disturbance, weight gain.?Change in appetite?admits, that is mild decrease in appetite.?Denies?Chills.?Denies?Fatigue.?Denies?Fever.?Denies?Headache.?Sleep disturbance?admits, has trouble maintaining sleep most nights.?Weight gain?admits, is minimal and pt is not sure why since appetite is down.?ENT:?Patient complaining of?decreased hearing, especially right side.?Denies?Sore throat.?Endocrine:?Patient complaining of?had a low sugar one time.?Respiratory:?Denies?Cough,?with exertion, non-productive.?Denies?Shortness of breath at rest.?Denies?Shortness of breath with exertion,?that is severe.?Admits?Wheezing,?with exertion.?Gastrointestinal:?Denies?Change in bowel habits.?Denies?Diarrhea,?that is intermittent.?Denies?Nausea.?Musculoskeletal:?Patient complaining of?sciatica, painful joints, in particular the left knee.?Admits?Sciatica.?Skin:?Patient complaining of?dry skin, especially on lower legs.? * Medical History:? * Surgical History:? * Hospitalization/Major Diagno stic Procedure:? * Family History:?2 son(s) . . ? pt doesn\'t know parent\'s history. * Social History:?Tobacco Use:?Tobacco Use/Smoking?Patient is a?nonsmoker,?Additional Findings: Tobacco Non-User?Current non-smoker, currently using no form of tobacco.?Drugs/Alcohol:?Alcohol Screen?Did you have a drink containing alcohol in the past year??No,?Points?0,?Interpretation?Negative.?Miscellaneous:?Caffeine: yes. Children: yes. Exercise: yes, walks for half an hour and yard work. Housing: owning. Living with: spouse and son. Marital status: . Pets: none. Travel outside of the [place]: no. * Medications:?TakingMeclizine HCl 25 MG Tablet Chewable 1 tablet [...] 1 tablet Orally Once a day Pen [place] 33G X 4 MM Miscellaneous as directed [...] tablet Orally Once a day Taking Pen [place] 33G X 4 MM Miscellaneous as directed [...] reviewed and reconciled with the patient * Allergies:?N.K.D.A.yes[Aller gies Verified] Objective: * Vitals:?Ht: 68, Wt: 216, BMI :32.84, BP:158/84, Repeat BP:158/92, Wt-k.98. * ???Past Orders: ???Lab:Hemoglobin A1c (Order Date - 09/21/2024) (Collection Date & Time - 09/21/2024 07:30 AM) ? Value Reference Range ?Hemoglobin A1c % 7.7 H <6. 0 - % ?Estimated Average Glucose 174 - mg/dL ???Lab:Glucose, Whole Blood (Order Date - 09/14/2024) (Collection Date & Time - 09/14/2024 08:04 AM) ? Value Reference Range ?Glucose, Whole Blood 138 H 60-115 - mg/dL * Examination: ???AWV: ?Balance?.?Hearing?.?EKG? Not clinically necessary.?Written plan?Completed.?General Examination: ?GENERAL APPEARANCE:?alert, well hydrated, in no distress.?EYES:?extraocular movement full and smooth.?SKIN:?good turgor.?HEART:?no murmurs, rubs, gallops.?LUNGS:?no wheezes, rales, rhonchi, good air movement, clear to auscultation bilaterally.? Assessment: * Assessment: 1.?Encounter for general domingo lt medical examination without abnormal findings - Z00.00 (Primary)???2.?Type 2 diabetes mellitus without complication - E11.9??? Plan: * Treatment: ? Value Reference Range ?Value 210 2.?Others? Refill Atorvastatin Calcium Tablet, 40 MG, TAKE 1 TABLET BY MOUTH EVERY DAY, Orally, Once a day, 90days, 90, Refills 3.?? * Procedure Codes:?07703 ASSAY , GLUCOSE, BLOOD QUANT, Modifiers: QW G0439 ANNUAL WELLNESS VST; PPS SUBSQT VST * Preventive Medicine:? ??Counseling:?Care goal follow-up plan:?Counseling for abnormal BMI provided?Yes,?Above Normal BMI Follow-up?Dietary management education, guidance, and counseling, Dietary needs education, Giving encouragement to exercise.?Exercise?.?Communication to patient:?Counseling for nutrition provided?Yes,?Counseling for physical activity provided?Yes.?Social:?diet:?Discussed the importance of eating a nutritious healthy food on a regular basis,?exercise:?Discussed the benefits of any exercise for overall health and well-being,?alcohol and drugs:?Discussed the dangers of excessive alcohol intake.? ??SCREENING:?Colonoscopy?Next screening is scheduled.?Mammogram?Annual Mammogram recommended pt will self schedule.? ??COPD Care Plan:?Patient Lifestyle Goals?Relieve symptoms and improve quality of life, Reduce number of ED and hospitalizations .?Treatment Goals?take medicine exactly as precribed and plan for RX refills.?Self-Managment Plan?Eat a healthy diet.? ??CHF Care Plan:?Patient Lifestyle Goals?Relieve symptoms and improve quality of life, Reduce number of ED and hospitalizations for CHF.?Treatment Goals?Take medicine exactly as directed and plan for RX refills, Start low salt, DASH diet, Weigh yourself every day to see if you are retaining fluid. Call office if + or - 5lbs from previous day.? ??Immunizations:?Influenza?Have you had a flu shot since the most recent April 08??No refuses flu shot for the season.?Covid?patient has not vaccinated yet, patient encouraged to get vaccinated.? ??Screening/Special Tests:?Colonoscopy?.?Mammogram?.? * Follow Up:?1 Year (Reason: A [place]) * * Sign off status: Completed true * Provider:?Mahad Haddad MD Date:?0 09/28/2024 Generated for Xena purdy/Adina/eTransmitting on:?10/10/2024 10:06 AM EST History and Physical Notes * [...] you had two or more falls in e past year?: No Have you had [...] updated during today's visit: Past Medical History, [place] of [place], Surgical/Hospitalization History, Current medications including [...] at night Receives help from another p joellejulianne with any of the above: Yes Has [...]
== END 2024-10-10 10:17 | disposition home or self-care (01) ==
LOC: HO.HUSH 09:10
PROVIDERS: PCP Internal Medicine; Visit Provider Urology
DX: N40.1 Benign prostatic hyperplasia with lower urinary tract symptoms (principal); N13.8 Other obstructive and reflux uropathy; R39.11 Hesitancy of micturition
CPT/HCPCS: 99213

== ENCOUNTER → 2024-10-10 09:10 | Outpatient (BNVA) | payer MEDICARE, SELFPAY | PROVIDERS: PCP Internal Medicine; Visit Provider Urology ==

== ENCOUNTER 2024-10-17 13:07 | Outpatient (AMB) | payer OTHER, SELFPAY ==
--- NOTE | 2024-10-17 13:28 | HO.NEPHOV ---
Vital Signs 10/17/24 13:31 Height 5 ft 7 in Weight 220 lb 2 oz BMI 34.5 BP 122/74 Blood Pressure Location Lt brachial Position Sitting Pulse 99 Pulse Source Pulse Oximeter Pulse Oximetry (%) 98 Oxygen Delivery Method Room Air Intake Visit Reasons: CKD-Conf [employer] Required: Yes [employer] Language: Process Safety Engineering Technologist Services: [employer] Offered & Declined ([facility] avionics installer services refused ) Accompanied by: Son Allergies No Known Allergies Allergy (Verified 10/17/24 13:29) HPI Comments Details: Isaac was seen in follow up of his hypertension. His blood pressure is well controlled on current medication regimen. He is a diabetic and monitors blood sugar closely. He has not lost a lot of weight. He denies chest pain, shortness of breath, nausea, vomiting, diarrhea, edema , urinary or orthostatic symptoms. There were no active systemic complaints at the time of this office visit [facility] Medical History Right groin pain Right inguinal hernia On beta lala at home Hx SBO DM2 (diabetes mellitus, type 2) Disc degeneration, lumbar Chronic pain syndrome Spondylosis of lumbosacral spine with radiculopathy GERD (gastroesophageal reflux disease) Obesity (BMI 30-39.9) Hypertension 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 associated with type 2 diabetes mellitus manager terminal (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 Surgical History Hx of inguinal hernia repair S/P placement of nerve stimulator Hx of surgical procedure Hx of cystoscopy Hx of lithotripsy Hx of right hemicolectomy Hx of colonoscopy Hx of esophagogastroduodenoscopy Family History Father Unknown family medical history Mother Unknown family medical history Social History Are you a primary skin care consultant to a significant other at home: No Do you presently have visiting nurse or other home services: No Alcohol intake: never Patient Tobacco Use Status: Never used Tobacco Second Hand Smoke Exposure: No Advance Directives Date on File: 09/08/14 Current occupational status: disabled 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/ Review of Systems Const All systems reviewed & are unremarkable except as noted in HPI and below Physical Exam Vital Signs: Last Vital Signs Pulse 99 03/12/25 13:31 BP 122/74 10/17/24 13:31 Pulse Ox 98 10/17/24 13:31 Oxygen Delivery Method Room Air 10/17/24 13:31 BMI result Body Mass Index 34.5 Const General: comfortable and no acute distress Orientation/consciousness: patient oriented x3 HEENT Head: Yes normocephalic Mouth: Normal oral and palatal mucosa present Eyes EOM: EOMs intact bilaterally Neck Neck: Yes supple Resp Auscultation: clear to auscultation bilaterally Cardio Jugular venous distension: no JVD Rate: regular rate Heart sounds: Murmur heart sound present GI Palpation (GI): Soft to palpation Auscultation: normal bowel sounds Neuro General: patient oriented x3 and moves all extremities Extrem General: Yes no pedal edema Results Reviewed Nephrology Results: No Data to Display Assessment & Plan Assessment & Plan (1) Hypertension: Code(s): I10 - Essential (primary) hypertension Category: Medical Qualifiers: Hypertension type: essential hypertension Qualified Code(s): I10 - Essential (primary) hypertension Plan Isaac has long standing hypertension. His blood pressure is well controlled on current medication regimen. He is a diabetic. He is on Cozaar. He has no retinopathy or CHF. He has normal urine protein cr ratio and renal function is stable at baseline. He needs to loose weight. He is going to have TURP this year. No medication changes made . Follow up appointment given Orders: Orders Creatinine Today I10 - Essential (primary) hypertension Blood Urea Nitrogen Today I10 - Essential (primary) hypertension Electrolytes Today I10 - Essential (primary) hypertension Calcium Today I10 - Essential (primary) hypertension Protein Creatinine Ratio, Ur Today I10 - Essential (primary) hypertension Coding Level of Care Code Est Pt Level 4 (61886) Diagnoses Essential hypertension I10 Hypertension type: essential hypertension
[2024-10-17 13:31] VITALS: BP 122/74; PULSE 99; O2SAT 98; BMI 34.5
--- OUTSIDE RECORDS SUMMARY | 2024-10-17 15:23 | XMS_ITS | Clinical Summary ---
Author Organization [facility] Address [address] [place] [address] Phone Care Team Providers Care Financial Services Director Name Role Phone Mahad Haddad MD Primary [...] patient's age to complete this topic Insurance [employer] Care Teams Financial Services Director Relationship Specialty Start Date End Date Mahad Haddad MD [address] [place] [address] [id number] [place], [place] PCP - General 08/18/20
--- OUTSIDE RECORDS SUMMARY | 2024-10-17 15:23 | XMS_ITS | Patient Health Record ---
Author Organization [facility] Address [address] [place] [address] Care Team Providers Care Pottery Decorator Name Role Phone Boo SIMS, Mahad Primary Care Provider Juancarlos Cohen Unavailable [phone] Allergies No Known Allergies Results Component Value Reference Range Notes Glucose, Whole Blood Reviewed date:09/14/2024 02:25:32 PM Interpretation: Performing Lab:[facility], [address] [place] [phone] Notes/Report: Glucose, Whole Blood 138 60-115 mg/dL METER # : [id number] Pathology (Not yet reviewed by provider) Interpretation: Performing Lab:[facility], [address] [place] [phone] Notes/Report: ---- Name: Rachael Agustin Age/Sex: 74/M : 1950 Unit#: [id number] Attend Dr: Juancarlos Sher MD Re09/14/24 Status : [facility] Location: [facility] Disch: ---- SPEC : [id number] RECD: 09/14/24 STATUS: TANI KAUFMAN NUM: [id number] KEYSHAWN: 09/14/[address] [facility] [address]: Juancarlos Sher MD ENTERED: 09/14/24-10 43 SP TYPE: Surgical OTHR DR: Mahad [...] in 3 parts. A. Received in forma poncho labeled ?distal transverse colon polyp? are fragments [...] in cassette B. C. Received in forma poncho labeled ?proximal transverse colon polyp? are 2 [...] Rachael Agustin Age/Sex: 74/M : 1950 Unit#: [id number] Attend Dr: Juancarlos Sher MD Re09/14/24 Status : [facility] Location: [facility] Disch: ---- SPEC : [id number] RECD: 09/14/24 STATUS: TANI KAUFMAN NUM: [id number] KEYSHAWN: 09/14/[address] [facility] [address]: Juancarlos Sher MD ENTERED: 09/14/24- [...] examination, 4 pieces in cassette C2. [facility] Copies To: Mahad Haddad MD [facility] [address] [place] [address] Juancarlos Sher MD [facility] [address] [place], [place] [phone] ---- Signed (signature on file) Leora Krebs 09/17/24 1235 ---- END OF REPORT Reason For Referral No Information Medications Medication [...] 20 MG TAKE 1 CAPSULE BY [facility] TWICE A DAY FOR HEARBURN [...] Problem Status W/U Status Risk Notes Problem [id number] Encounter for screening for malignant neoplasm of colon (Z12.11) Active confirmed Problem 151967602 History of adenomatous polyp of colon (Z86.010) Active confirmed Problem Abdominal bloating (369244094) Abdominal bloating (R14.0) Active confirmed Problem Diverticular disease of colon (549141222) Diverticulosis of large intestine without perforation or abscess without bleeding (K57.30) Active confirmed Problem History of malignant neoplasm of colon (473388954) Personal history of other malignant neoplasm of large intestine (Z85.038) Active confirmed Problem History of gastrointestinal tract bypass (762524160) Intestinal bypass and anastomosis status (Z98.0) Active confirmed Problem 751496466 Gastroesophageal reflux disease with esophagitis (K21.0) Active confirmed Problem 639178979 History of colon cancer (Z85.038) Active confirmed Problem Diverticulosis of colon (628097071) Diverticulosis of colon (K57.30) Active confirmed Problem 483288676 Gastroesophageal reflux disease with esophagitis without hemorrhage (K21.00) Active confirmed Vital Signs Temperature 97.5 degrees Fahrenheit 01/24/2024 Blood pressure diastolic 00 mm Hg 01/24/2024 Height 68.35 in 01/24/2024 Blood pressure systolic 000 mm Hg 01/24/2024 Weight 212 lb 6 oz lbs 01/24/2024 BMI 31.96 kg/m2 01/24/2024 Encounters Encounter Location Date Provider Diagnosis [facility] Outpatient [address] [place] [phone] 09/14/2024 Juancarlos Sher Colon cancer screeni ng Z12.11 ; Colon polyps K63.5 ; Personal history of other malignant neoplasm of large intestine Z85.038 ; Intestinal bypass and anastomosis status Z98.0 ; Diverticulosis of large intestine without perforation or abscess without bleeding K57.30 and Other hemorrhoids K64.8 [facility] [address] [place] [address] 01/24/2024 Juancarlos Sher History of colon can cer Z85.038 ; Abdominal bloating R14.0 ; History of adenomatous polyp of colon Z86.010 ; Encounter for screening for malignant neoplasm of colon Z12.11 ; Gastroesophageal reflux disease with esophagitis without hemorrhage K21.00 and Personal history of other malignant neoplasm of large intestine Z85.038 [facility] [address] [place] [address] 01/26/2024 Juancarlos Sher [facility] [address] [place] [address] 05/10/2024 Juancarlos Sher Assessments Encounter Date Diagnosis [...] I also recommended that he try some jiye-bch-jnxp ter simethicone products regularly. I shall give [...] I also recommended that he try some prrf-wfl-cidb ter simethicone products regularly. I shall give [...] I also recommended that he try some lkhw-qwr-ibcm ter simethicone products regularly. I shall give [...] I also recommended that he try some thmy-xtv-xxxf ter simethicone products regularly. I shall give [...] I also recommended that he try some wqdl-tzf-asoh ter simethicone products regularly. I shall give [...] I also recommended that he try some myrx-hwv-cudn ter simethicone products regularly. I shall give [...] Insured Coverage Start Date Coverage End Date [facility] [address] [address] [place] [address] [id number] RAULRACHAEL HUANG Self - patient is the [...] in 2006 Internal hemorrhoids IDDM HTN Denies [place],CVA,Lung disease,renal disease EGD in 04/2011 with erosive esophagitis a nd HH-no Linn's esophagus Hyperlipidemia Colonoscopy in 05/2018 with removal of a tubular adenoma SBO in 02/2020 treated with NG tube--no s urgery Kidney stones Colonoscopy May 2021 Romero ited prep and one small polyp removed but not recovered for pathology Surgical History Surgery Date(Month/Year) Right colectomy for colon cancer as per [facility] Right inguinal hernia 2022-Dr. Schulz Stimulator put in back
--- OUTSIDE RECORDS SUMMARY | 2024-10-17 15:23 | XMS_ITS ---
Author Organization Mahad Haddad MD Address [address] [place] [phone] Care Team Providers Care Air Hole Driller Name Role Phone Mahad Haddad Primary Care Provider [phone] REASON FOR VISIT fasting lipids Encounters Encounter Location Date Provider Diagnosis Mahad Haddad MD [address] [place] [phone] 09/21/2024 Mahad Haddad Type 2 diabetes amrgi itus without complication E11.9 and Pure hypercholesterolemia [...] Provider Name:Mahad Jang ier, 02/26/2025 07:45:00 AM, [address] [place] [address], Suite [facility] [place], [phone], Provider Name:Mahad Jang ier, 03/05/2025 09:30:00 AM, [address] [place] [address], Suite [facility], [place], [phone], Provider Name:Mahad Jang ier, 10/03/2025 11:00:00 AM, [address] [place] [address], Suite [facility], [place], [place], [phone], Progress Notes * RACHAEL CARTERDOB:[birth year] (74 yo M)Acc No.[id number]:09/21/2024 Progress Note Patient:RACHAEL GUTIERREZ Provider:?Mahad Haddad MD :1950???Age:74 Y???Sex:Male Alfie e:09/21/2024 [facility] [address] [address] [id number] Subjective: * Chief Complaints: * ???1. Fasting lipids. * Medical History:? Objective: * Vitals:? Assessment: * Assessment: 1.?Type 2 diabetes mellitus without complication - E11.9 (Primary)???2.?Pure hypercholesterolemia - E78.00??? Plan: * Treatment: 2.?Pure hypercholesterolemia ?LAB: Liver Panel ?LAB: Glucose Fasting ?LAB: Lipid Panel with Reflex ?LAB: Hemoglobin A1c * Procedure Codes:?82163 VENIP UNCT, ROUTINE* * * The named appointment provid er may or may not be the originator of this progress note, and it is not deemed complete until electronically signed by the appointment provider. Sign off status: Pending * Provider:?Mahad Haddad MD Date:?0 09/21/2024 Generated for Xena purdy/Adina/Aide on:?10/17/2024 03:23 PM EDT
--- OUTSIDE RECORDS SUMMARY | 2024-10-17 15:24 | XMS_ITS ---
Author Organization [facility] Address [address] [place] [address] Care Team Providers Care Senior Genetic Counselor Name Role Phone Boo SIMS, Mahad Primary Care Provider Juancarlos Cohen [phone] REASON FOR VISIT 2 day prep, colon screening Problems Problem Type SNOMED Code ICD Code Onset Dates Problem Status W/U Status Risk Notes Problem History of gastrointestinal tract bypass (120010104) Intestinal bypass and anastomosis status (Z98.0) Active confirmed Problem Diverticular disease of colon (102441761) Diverticulosis of large intestine without perforation or abscess without bleeding (K57.30) Active confirmed Encounters Encounter Location Date Provider Diagnosis [facility] Outpatient [address] [place], [place] [phone] 09/14/2024 Juancarlos Sher Colon cancer scree geeta [...] Notes * RACHAEL AGUSTINDOB: (74 yo M)Acc No.[id number]:09/14/2024 COLON WITH MAC Patient:?ELIZABETH AGUSTIN Provider:?Juancarlos Sher MD :1950???Age:74 Y???Sex:Male Alfie e:09/14/2024 Address: [address], [id number] Pcp:Mahad Haddad MD Subjective: * Chief Complaints: [...] - K64.8??? Plan: * Treatment: * Procedure Codes:?13843 LESIO N REMOVAL COLONOSCOPY, Modifiers: PT , [...] Provider:?Juancarlos Sher MD Date:? 025 Generated for Xnea purdy/Adina/eTransmitting on:?10/17/2024 03:23 PM EDT
--- OUTSIDE RECORDS SUMMARY | 2024-10-17 15:24 | XMS_ITS ---
Author Organization Mahad Haddad MD Address [address] [place] [phone] Care Team Providers Care Drive In Theater Attendant Name Role Phone Mahad Haddad Primary Care Provider REASON FOR VISIT last note Encounters Encounter Location Date Provider Diagnosis Mahad Haddad MD [address] [place] [phone] 09/28/2024 Mahad Haddad Plan Of Treatment Next Appt Details Provider Name:Mahad Jang iesandra, 02/26/2025 07:45:00 AM, [address] [facility], [address], [place], [phone], Provider Name:Mahad Jang ana cristina, 03/05/2025 09:30:00 AM, [address] [facility], [address], [place], [phone], Provider Name:Mahad Jang ier, 10/03/2025 11:00:00 AM, [address] [place] [address], [address], [place], [phone], Progress Notes * RACHAEL CARTERDOB:[birth year] (74 yo M)Acc No.[id number]:09/28/2024 Patient:?RACHAEL CARTER :1950???Age:74 Y???Sex:Male Address: [address], [place], [address] * true * Date:? Generated for Xena purdy/Adina/eTransmitting on:?10/17/2024 03:24 PM EDT
--- OUTSIDE RECORDS SUMMARY | 2024-10-17 15:24 | XMS_ITS ---
Author Organization [facility] Address [address] [place] [address] Care Team Providers Care Psychiatric Technician Name Role Phone Boo SIMS, Mahad Primary Care Provider Juancarlos Cohen [phone] Encounters Encounter Location Date Provider Diagnosis [facility] [address] [place] [address] 05/10/2024 Juancarlos Sher Plan Of Treatment No Information Progress Notes * RACHAEL AGUSTINDOB: (73 yo M)Acc No.[id number]:05/10/2024 Patient:?RAUL ELIZABETH HEALY :1950???Age:73 Y???Sex:Male Address:[address] [place] [address] * true * Date:? Generated for Xena purdy/Adina/eTransmitting on:?10/17/2024 03:24 PM EDT
--- OUTSIDE RECORDS SUMMARY | 2024-10-17 15:24 | XMS_ITS ---
Author Organization Mahad Haddad MD Address [address] [place] [phone] Support Name Relationship Address Phone BooRocíon Caregiver [address] [facility] [address] [place] [phone] Maldonado Mota Caregiver [address] [facility] [address] [address] [place] [phone] NoraLeanamary Caregiver [address] [facility] [address] [address] [place] [phone] MARSHA COOLEY Caregiver [address] [facility] [address] [address] [place] [phone] Candido Rodriguez Caregiver [address] [facility] [address] [address] [place] [phone] KIKI POLANCO Caregiver [address] [facility] [address] [place] [phone] Erik Vaz Caregiver [address] [facility] [address] [place] [phone] Jennifer Ji Caregiver [facility] [address] [place] [phone] KRISTINA CARTER Emergency Contact [address] [place] [address] RACHAEL CARTER Guarantor Unknown [phone] Care Team Providers Care Software Licensing Specialist Name Role Phone Mahad Haddad Primary [...] day for 30 days 08/29/2023 Active [place] 33G X 4 MM as directed sq [...] Location Date Provider Diagnosis Mahad Haddad MD [address] [place] [phone] 09/28/2024 Mahad Haddad Type 2 diabetes mellitus [...] Name:Mahad de la paz, 02/26/2025 07:45:00 AM, [address] [place] [address], [address], [phone], Provider Name:Mahad de la paz, 03/05/2025 09:30:00 AM, [address] [place] [address], [address], [phone], Provider Name:Mahad de la paz, 10/03/2025 11:00:00 AM, [address] [place] [address], [address], [phone], Progress Notes * CHARLY CARTER:[birth year] (74 yo M)Acc No.[id number]:09/28/2024 Progress Note Patient:?RACHAEL CARTER Provider:?Mahad Haddad MD :1950???Age:74 Y???Sex:Male Alfie e:09/28/2024 Address: [address], [id number] Subjective: * Chief Complaints: * ???6 months DM, AWVAccompani ed by son * HPI: ???Annual Wellness Visit:?74 year old male presents with c/o of?Annual Wellness Visit , Annual Wellness Visit.?Medical / Social History Reviewed?The following items were reviewed and updated during today's visit?Past Medical History, [place] of Care, Surgical/Hospitalization History, Current medications including [...] 1 tablet Orally Once a day [place] 33G X 4 MM Miscellaneous as directed [...] tablet Orally Once a day Taking [place] 33G X 4 MM Miscellaneous as directed [...] day, 90days, 90, Refills 3.?? * Procedure Codes:?68545 ASSAY , GLUCOSE, BLOOD QUANT, Modifiers: QW [...] MD Date:?0 09/28/2024 Generated for Xena purdy/Adina/eTransmitting on:?10/17/2024 03:23 PM EDT History and Physical Notes * [...] updated during today's visit: Past Medical History, [place] of Care, Surgical/Hospitalization History, Current medications including [...] and at night Receives help from another ashlee adrián with any of the above: Yes [...]
--- OUTSIDE RECORDS SUMMARY | 2024-10-17 15:24 | XMS_ITS ---
Author Organization [facility] Address [address] [place] [phone] Care Team Providers Care Console Attendant Name Role Phone Boo SIMS, Mahad Primary Care Provider Juancarlos Cohen [phone] REASON FOR VISIT please lock office visit note Encounters Encounter Location Date Provider Diagnosis [facility] [address] [place] [phone] 01/26/2024 Juancarlos Sher Plan Of Treatment No Information Progress Notes * RACHAEL AGUSTINDOB: (73 yo M)Acc No.[id number]:01/26/2024 Patient:?ELIZABETH AGUSTIN :1950???Age:73 Y???Sex:Male Address:[address] [place] [address] * true * Date:? Generated for Printi ng/Faaprilg/eTransmitting on:?10/17/2024 03:24 PM EDT
== END 2024-10-17 13:41 | disposition home or self-care (01) ==
PROVIDERS: PCP Internal Medicine; Visit Provider Internal Medicine Nephrology
DX: I10 Essential (primary) hypertension (principal)
CPT/HCPCS: 99214

== ENCOUNTER 2024-10-17 13:07 | Outpatient (REF) | payer MEDICARE, SELFPAY ==
[2024-10-17 15:01] LABS: Anion Gap 11 (12-20); Blood Urea Nitrogen 12 mg/dL (9-16); Calcium 9.2 mg/dL (8.4-10.2); Carbon Dioxide 27 mmol/L (22-29); Chloride 104 mmol/L (96-108); Estimated Glomerular Filt Rate > 60; Potassium 4.1 mmol/L (3.3-5.1); Sodium 138 mmol/L (135-145)
[2024-10-17 15:07] LABS: Creatinine Urine 224.81 mg/dL; Protein/Creatinine Ratio, Ur 0.07 (<0.2); Total Protein Urine Random 16 mg/dL (<12)
--- OUTSIDE RECORDS SUMMARY | 2024-10-17 16:23 | XMS_ITS | Patient Health Record ---
Author Organization Mahad John MD Address [address] [place] [id number] Care Team Providers Care Pulp Operator Name Role Phone Mahad John Primary Care Provider Allergies No Known Allergies Results Component Value Reference Range Notes Hemoglobin A1c Reviewed date:12/09/2023 03:10:56 PM Interpretation: Performing Lab: Notes/Report: Hemoglobin A1c 9.1 Glucose, finger stick Reviewed date:12/09/2023 03:04:21 PM Interpretation: Performing Lab: Notes/Report: Value 210 Glucose, finger stick Reviewed date:09/28/2024 10:01:27 AM Interpretation: Performing Lab: Notes/Report: Value 210 CT abdomen pelvis wo con Reviewed date:11/13/2023 02:22:50 PM Interpretation: Performing Lab: Notes/Report: [address] [address] [address] Scan Report Signed Patient: Rachael Sanon MR#: M [id number] : 1950 Acct:[id number] Age/Sex: 73 / M ADM Date: 11/03/23 Loc: HO.CT Attending Dr: Mahad John MD Ordering Physician: Mahad John MD Date of Service: 11/03/23 Procedure(s): CT abdomen pelvis wo IV con Accession Number(s): [id number] cc: Mahad John MD EXAMINATION: CT ABDOMEN AND PELVIS WITHOUT CONTRAST CLINICAL INFORMATION: History of small bowel obstruction. COMPARISON: KUB 10/11/[address] abdomen and pelvis 09/04/2022. TECHNIQUE: Multidetector volumetric imaging was performed from the superior aspect of the liver through the pubic symphysis. Sagittal and coronal reformatted images were obtained on the technologist's workstation. This CT examination was performed using dose optimization techniques as appropriate, variously including the following: *Automated exposure control *Adjustment of mA and/or kV according to patient size (this includes techniques or standardized protocols for targeted exams where dose is matched to indication/reason for exam; i.e. extremities or head) *Use of iterative reconstruction technique DLP: 624 mGy-cm FINDINGS: LUNG BASES: The visualized lung bases are unremarkable. LIVER, GALLBLADDER, AND BILIARY TREE: The liver is normal in size, shape, and attenuation. No focal hepatic lesion or biliary ductal dilatation is present. The gallbladder is unremarkable with no evidence of radiopaque gallstones, gallbladder wall thickening, or obvious pericholecystic inflammatory changes. PANCREAS: Unremarkable. SPLEEN: Unremarkable. ADRENAL GLANDS: Unremarkable. KIDNEYS AND URETERS: The kidneys are normal in size, shape, and attenuation. 2 nonobstructing calculi are present in the left kidney the largest measuring 4 mm. No hydronephrosis, hydroureter, or right-sided/ureteral calculi seen. No perinephric stranding. BLADDER: Unremarkable. GASTROINTESTINAL TRACT: Status post right hemicolectomy. Anastomosis is widely patent. There is some mild gaseous distention of distal small bowel loops but no evidence of definite mechanical obstruction. The largest loops measure about 4 cm slightly increased when compared to prior. Transition between loops of bowel can be seen in the right mid abdomen (3:47-54). The colon is decompressed. The appendix is no longer present. ABDOMINAL WALL: Tiny bilateral inguinal hernias containing only fat. LYMPH NODES: No retroperitoneal lymphadenopathy. VASCULAR: Unremarkable. PELVIC VISCERA: Prostate and seminal vesicles appear normal. Trace fluid in the pelvis. OSSEOUS STRUCTURES: Unremarkable. CT/CT abdomen pelvis wo IV con IMPRESSION: 1. Status post right hemicolectomy with widely patent anastomosis. 2. Mild gaseous distention of distal small bowel loops with transition between loops of bowel in the right mid abdomen. Findings are suggestive of a partial small bowel obstruction. 3. Nonobstructing left renal calculi. Fleischner guidelines were followed. Dictated By: Benji Tao MD Signed By: <Electronically signed by Benji Tao MD in [place]> 11/09/23 0009 DD/ 0905 TD/TT: Neuro Ophthalmologist: [place] [address] CT Scan Report Signed Patient: aRchael Sanon MR#: Dany [id number] : 1950 Acct:[id number] Age/Sex: 73 / M ADM Date: 11/03/23 Loc: HO.CT Attending Dr: Mahad John MD Ordering Physician: Mahad John MD Date of Service: 11/03/23 Procedure(s): CT abdomen pelvis wo IV con Accession Number(s): [id number] cc: Mahad John MD EXAMINATION: CT ABDOMEN AND PELVI S WITHOUT CONTRAST CLINICAL INFORMATION: History of small bow el obstruction. COMPARISON: KUB 10/11/[address] abdomen and pelvis 09/04/2022. TECHNIQUE: Multidetector volumetric imaging was performed from the superior aspect of the liver through the pubic symphysis. Sagittal and coronal reformatted images w ere obtained on the technologist's workstation. This CT examination was performed using dose optimization techniques as appropriate, various ly including the following: *Automated exposure control *Adjustment of mA and/or kV according to patient size (this includes techniques or standardized protocols for targeted exams where dose is matched to indication/reason for exam; i.e. extremities or head) *Use of iterative reconstruction technique DLP: 624 mGy-cm FINDINGS: LUNG BASES: The visualized lung bases are unremarkable. LIVER, GALLBLADDER, AND BILIARY TREE: The liver is normal in size, shape, and attenuati on. No focal hepatic lesion or biliary ductal dilatation is presen t. The gallbladder is unremarkable with no evidence of radiopaque gallstones, gallbladder wall thickening, or obvious pericholecystic inflammatory changes. PANCREAS: Unremarkable. SPLEEN: Unremarkable. ADRENAL GLANDS: Unremarkable. KIDNEYS AND URETERS: The kidneys are normal in size, shape, and attenuation. 2 nonobstructing calculi are present in the left kidney the largest measurin g 4 mm. No hydronephrosis, hydroureter, or right-sided/ureteral calculi seen. No perinephric stranding. BLADDER: Unremarkable. GASTROINTESTINAL TRA CT: Status post right hemicolectomy. Anastomosis is widely patent. There is some mild gaseous distention of distal small bowel loops but no evidence of definite mechanical obstruction. The largest loops measur e about 4 cm slightly increased when compared to prior. Transition between loops of bowel can be seen in the right mid abdomen (3:47-54). T he colon is decompressed. The appendix is no longer present. ABDOMINAL WALL: Tiny bilateral inguinal hernias containing only fat. LYMPH NODES: No retroperitoneal lymphadenopathy. VASCULAR: Unremarkable. PELVIC VISCERA: Prostate and seminal vesicles appear normal. Trace fluid in the pelvis. OSSEOUS STRUCTURES: Unremarkable. CT/CT abdomen pelvis wo IV con IMPRESSION: 1. Status post right hemicolectomy with widely patent anastomosis. 2. Mild gaseous distention of distal small bowel loops with transition between loops of bow el in the right mid abdomen. Findings are suggestive of a part ial small bowel obstruction. 3. Nonobstructing le ft renal calculi. Fleischner guideline s were followed. Dictated By: Benji Tao MD Signed By: <Electronically signed by Benji Tao MD in [place]> 11/09/23 0009 DD/ 0905 TD/TT: Neuro Ophthalmologist: SHAHZAD VAZQUEZ bladder Reviewed date:01/05/2024 07:19:04 PM Interpretation: Performing Lab: Notes/Report: [address] [address] Ultrasound Report Signed Patient: Rachael Sanon MR#: Dany [id number] : 1950 Acct:[id number] Age/Sex: 73 / M ADM Date: 12/14/23 Loc: HO.US Attending Dr: Rafita Garland MD Ordering Physician: Rafita Garland MD Date of Service: 12/14/23 Procedure(s): US bladder Accession Number(s): [id number] cc: Rafita Garland MD; Mahad John MD EXAMINATION: US PELVIS LIMITED (BLADDER) CLINICAL INFORMATION: Poor urinary stream. COMPARISON: CT abdomen and pelvis 11/03/2023. X-ray abdomen KUB 10/11/2023 and 11/12/2017. TECHNIQUE: Real-time imaging of the bladder. FINDINGS: BLADDER: Well distended and unremarkable. Bilateral ureteral jets are demonstrated. Prevoid bladder volume is 204 mL. Postvoid bladder volume is 52.0 mL. The prostate volume is 16.9 mL. US/US bladder IMPRESSION: Postvoid bladder volume is 52 mL. Dictated By: Radha Talley MD Signed By: <Electronically signed by Radha Talley MD in [place]> 12/19/23 1407 DD/ 1143 TD/TT: Neuro Ophthalmologist: [address] [address] Ultrasound Report Signed Patient: Rachael Sanon MR#: M [id number] : 1950 Acct:[id number] Age/Sex: 73 / M ADM Date: 12/14/23 Loc: HO.US Attending Dr: Rachel Tena MD Ordering Physician: Rafita Garland MD Date of Service: 12/14/23 Procedure(s): US bladder Accession Number(s): [id number] cc: Rafita Garland MD; Mahad John MD EXAMINATION: US PELVIS LIMITED (BLADDER) CLINICAL INFORMATION: Poor urinary stream. COMPARISON: CT abdomen and pelvi s 11/03/2023. X-ray abdomen KUB 10/11/2023 and 11/12/2017. TECHNIQUE: Real-time imaging of the bladder. FINDINGS: BLADDER: Well disten ded and unremarkable. Bilateral ureteral jets are demonstrated. Prevoi d bladder volume is 204 mL. Postvoid bladder volume is 52.0 mL. The prostate volume is 16.9 mL. US/US bladder IMPRESSION: Postvoid bladder vol ume is 52 mL. Dictated By: Radha Talley MD Signed By: <Electronically signed by Radha Talley MD in [place]> 12/19/23 1407 DD/ 1143 TD/TT: Neuro Ophthalmologist: Complete Blood Count Auto Di ff Reviewed date:01/27/2024 01:32:03 PM Interpretation: Performing Lab:[facility], [address] [place] [phone] Notes/Report: White Blood Count 7.0 4.8-10.8 X10*3/uL Red Blood Count 4.00 4.60-5.80 X10*6/uL Hemoglobin 11.2 14.0-18.0 g/dl Hematocrit 34.3 42.0-52.0 % Mean Corpuscular Volume 85.8 80.0-98.0 fL Mean Corpuscular Hemoglobin 28.0 27.0-33.0 pg Mean Corpuscular HGB Conc 32.7 31.0-36.0 g/dl Red Cell Distribution Width 14.2 11.0-16.0 % Platelet Count 231 160-400 X10*3/uL Mean Platelet Volume 11.0 9.4-12.4 fL Neutrophils Percent Auto 64.8 45-73 % Imm Gran Pct Auto 0.3 0.0-0.4 % Lymphocytes Percent Auto 24.1 20-40 % Monocytes Percent Auto 8.8 2-11 % Eosinophils Percent Auto 1.6 0-4 % Basophils Percent Auto 0.4 0-2 % NRBC Pct Auto 0.0 0.0-0.2 /100WBC Neutrophils Absolute Auto 4.5 2.0-8.3 x10*3/uL Imm Gran Abs Auto 0.02 0.00-0.03 X10*3/uL Lymphocytes Absolute Auto 1.7 1.2-4.9 X10*3/uL Monocytes Absolute Auto 0.6 0.1-1.2 X10*3/uL Eosinophils Absolute Auto 0.1 0.0-0.4 X10*3/uL Basophils Absolute Auto 0.0 0.0-0.2 X10*3/uL NRBC Abs Auto 0.000 0.0-0.012 X10*3/uL Comprehensive [place]. Panel Fa Reviewed date:01/27/2024 01:32:20 PM Interpretation: Performing Lab:[facility], [address] [place] [phone] Notes/Report: Sodium 141 135-145 mmol/L Potassium 3.6 3.3-5.1 mmol/L Chloride 104 96-108 mmol/L Carbon Dioxide 29 22-29 mmol/L Anion Gap 12 12-20 Blood Urea Nitrogen 11 9-16 mg/dL Creatinine 0.78 0.5-1.4 mg/dL Estimated Glomerular Filt Rate > 60 NOTE: For -Norwegian individuals, multiply the result by 1.210. Chronic Kidney Disease: Estimated GFR < 60 mL/min/1.73m2 Severe Kidney Disease: Estimated GFR < 15 mL/min/1.73m2 Glucose Fasting 139 60-99 mg/dL A fasting glucose of 126 mg/dl or greater on more than one occasion is considered diagnostic of diabetes. Calcium 9.3 8.4-10.2 mg/dL Bilirubin Total 0.6 0.0-1.0 mg/dL Aspartate Amino Transferase 19 5-37 U/L Alanine Aminotransferase 15 0-40 U/L Total Protein 6.9 6.5-8.0 g/dL Albumin Level 3.9 3.5-5.0 g/dL Alkaline Phosphatase 61 39-117 U/L Lipid Panel Reviewed date:01/27/2024 01:31:15 PM Interpretation: Performing Lab:[facility], [address] [place] [phone] Notes/Report: Triglycerides 61 <150 mg/dL Desirable Triglyceride: less than 150 mg/dL Borderline High Triglyceride 150-199 mg/dL High Triglyceride: 200-499 mg/dL Very High Triglyceride: greater than or equal to 5OO mg/dL Cholesterol 119 <200 mg/dL Desirable Cholesterol: less than 200 mg/dL Borderline High Cholesterol: 200-239 mg/dL High Cholesterol: greater than 239 mg/dL LDL Cholesterol Calculated 52 <100 mg/dL Desirable LDL: less than 100 mg/dL Near Optimal/Above Optimal LDL: 110-129 mg/dL Borderline High LDL: 130-159 mg/dL High LDL: 160-189 mg/dL Very High LDL: greater than or equal to 190 mg/dL HDL Cholesterol 55 >40 mg/dL Desirable HDL: greater than 40 mg/dL Note: This HDL assay may give artificially low results in patients with liver disease. PSA,Total (Free>4and<10) Reviewed date:01/27/2024 01:31:39 PM Interpretation: Performing Lab:[address] [address] Notes/Report: PSA,Total (Free>4and<10) 1.31 0.00-4.00 ng/mL A Free PSA was not performed: The percentage of Free PSA can be used to enhance the differentiation of prostate cancer from benign prostatic disease in subjects whose PSA levels are between 4.0 and 10.0 ng/mL. For subjects whose PSA levels are below 4.0 or above 10.0 ng/mL, the risk of prostate cancer is determined on the basis of the PSA alone. Therefore the % Free PSA is recommended only for those subjects whose PSA levels are between 4.0 and 10.0 ng/mL. PSA methodology: [place] Alinity i Chemiluminescent Microparticle Immunoassay (CMIA) Microalbumin, Random Reviewed date:01/27/2024 01:31:22 PM Interpretation: Performing Lab:[address] [address] Notes/Report: Creatinine Urine 67.40 Microalbumin Urine < 5.0 Microalbum/Creatinine Ratio Ur TNP <30 ug/mg cr Unable to calculate albumin/creatinine ratio due to low microalbumin or creatinine result. Hemoglobin A1c Reviewed date:01/27/2024 01:31:05 PM Interpretation: Performing Lab:[address] [address] Notes/Report: Hemoglobin A1c % 9.2 <6.0 % Hemoglobin A1C Reference Range Adults: 4.8 - 6.0 % Non diabetic: < 6.0 % Goal: < 7.0 % Additional Action Suggested: > 8.0 % Note: Hemoglobin A1c results are invalid for patients with abnormal amounts of HbF. Blood transfusions may impact the HbA1c concentration in the patient sample. Estimated Average Glucose 217 eAG = Estimated average glucose which is %A1C expressed as average glucose, using the formula of the [id number]-[id number] Average Glucose study (ADAG), Diabetes Care, Vol.31,#8, Mar. 2007 UA ClnCatch+Micro w/rflx Cul t Reviewed date:01/27/2024 01:32:36 PM Interpretation: Performing Lab:[facility], [address] [place] [phone] Notes/Report: Urine, Clean Catch Color Urine Yellow Appearance Urine Clear PH 7.5 5.0-9.0 Glucose Urine UA Negative Negative mg/dL Urine Blood Negative Negative Specific [place] - Urine 1.015 1.005-1.025 Urine Protein Negative Neg-Trace mg/dL Urine Ketones Negative Negative mg/dL Nitrite Urine Negative Negative Leukocyte Esterase Urine Negative Negative RBC Urine 0-2 0-2 /HPF WBC Urine 0-5 0-5 /HPF Squamous Epithelial Cell Urine 0-2 0-2 /HPF Bacteria Urine None Seen None Seen Hyaline Casts Urine 0-2 0-2 /LPF Complete Blood Count Auto Di ff Reviewed date:01/31/2024 12:41:05 PM Interpretation: Performing Lab:[facility], [address] [place] [phone] Notes/Report: White Blood Count 7.4 4.8-10.8 X10*3/uL Red Blood Count 4.11 4.60-5.80 X10*6/uL Hemoglobin 11.8 14.0-18.0 g/dl Hematocrit 35.0 42.0-52.0 % Mean Corpuscular Volume 85.2 80.0-98.0 fL Mean Corpuscular Hemoglobin 28.7 27.0-33.0 pg Mean Corpuscular HGB Conc 33.7 31.0-36.0 g/dl Red Cell Distribution Width 14.4 11.0-16.0 % Platelet Count 232 160-400 X10*3/uL Mean Platelet Volume 10.5 9.4-12.4 fL Neutrophils Percent Auto 72.2 45-73 % Imm Gran Pct Auto 0.3 0.0-0.4 % Lymphocytes Percent Auto 19.0 20-40 % Monocytes Percent Auto 7.5 2-11 % Eosinophils Percent Auto 0.5 0-4 % Basophils Percent Auto 0.5 0-2 % NRBC Pct Auto 0.0 0.0-0.2 /100WBC Neutrophils Absolute Auto 5.3 2.0-8.3 x10*3/uL Imm Gran Abs Auto 0.02 0.00-0.03 X10*3/uL Lymphocytes Absolute Auto 1.4 1.2-4.9 X10*3/uL Monocytes Absolute Auto 0.6 0.1-1.2 X10*3/uL Eosinophils Absolute Auto 0.0 0.0-0.4 X10*3/uL Basophils Absolute Auto 0.0 0.0-0.2 X10*3/uL NRBC Abs Auto 0.000 0.0-0.012 X10*3/uL Prothrombin Time INR Reviewed date:01/31/2024 12:33:44 PM Interpretation: Performing Lab:[address] [phone] Notes/Report: Prothrombin Time 12.0 11.1-13.3 SEC INTERNATIONAL NORM RATIO 1.0 0.9-1.1 INTERNATIONAL NORMALIZED RATIO (INR) REFERENCE RANGES Reference Range For patients not on anticoagulant therapy: 0.9 - 1.1 INR ranges for oral anticoagulant therapy: For prevention and treatment of venous thrombosis and pulmonary embolism: 2.0 - 3.0 For acute myocardial infarction with aspirin therapy: 2.0 - 3.0 For acute myocardial infarction without aspirin therapy: 3.0 - 4.0 For patients with mechanical prosthetic heart valves: 2.5 - 3.5 Liver Panel Reviewed date:01/31/2024 12:33:52 PM Interpretation: Performing Lab:[address] [address] Notes/Report: Bilirubin Total 0.5 0.0-1.0 mg/dL Bilirubin Direct 0.2 0.0-0.5 mg/dL Aspartate Amino Transferase 17 5-37 U/L Alanine Aminotransferase 15 0-40 U/L Total Protein 7.2 6.5-8.0 g/dL Albumin Level 4.0 3.5-5.0 g/dL Alkaline Phosphatase 68 39-117 U/L Basic Metabolic Panel Reviewed date:01/31/2024 12:34:18 PM Interpretation: Performing Lab:[address] [address] Notes/Report: Sodium 140 135-145 mmol/L Potassium 4.5 3.3-5.1 mmol/L Chloride 105 96-108 mmol/L Carbon Dioxide 28 22-29 mmol/L Anion Gap 12 12-20 Blood Urea Nitrogen 11 9-16 mg/dL Creatinine 1.01 0.5-1.4 mg/dL Creatinine Clr Calc Pharmacy 73.7 eGFR (calculated from the MDRD study equation) and eCrCl (calculated from the Cockcroft-Gault equation) are based on different parameters and may not yield comparable results. If eCrCl result is absurd, please check patient's height/weight. Estimated Glomerular Filt Rate > 60 NOTE: For -Norwegian individuals, multiply the result by 1.210. Chronic Kidney Disease: Estimated GFR < 60 mL/min/1.73m2 Severe Kidney Disease: Estimated GFR < 15 mL/min/1.73m2 Glucose Random 252 60-115 mg/dL Calcium 9.6 8.4-10.2 mg/dL Magnesium Reviewed date:01/31/2024 12:33:29 PM Interpretation: Performing Lab:[facility], [address] [place] [phone] Notes/Report: Magnesium 1.8 1.6-2.6 mg/dL Ammonia Reviewed date:01/31/2024 12:32:01 PM Interpretation: Performing Lab:[facility], [address] [place] [phone] Notes/Report: Ammonia 24 13-55 umol/L Troponin-I High Sensitivity Reviewed date:01/31/2024 12:33:21 PM Interpretation: Performing Lab:[address] [address] Notes/Report: Troponin-I High Sensitivity < 2.7 <3.5-35.0 ng/L The [place] high sensitivity Troponin-I results should be used in conjunction with other diagnostic information such as ECG, clinical observations and information, and patient symptoms to aid in the diagnosis of ID. SARS-CoV2/FLU/RSV Reviewed date:01/31/2024 12:33:59 PM Interpretation: Performing Lab:[facility], [address] [place] [phone] Notes/Report: Influenza A PCR NEGATIVE Negative Influenza B PCR NEGATIVE Negative Resp Syncy Virus RNA Qual PCR NEGATIVE Negative SARS COV2 PCR INHOUSE NEGATIVE Negative All test results must be correlated with clinical findings. Negative results do not preclude SARS-CoV2, influenza A virus, influenza B virus and/or RSV infection and should not be used as the sole basis for treatment or other patient management decisions. Negative results must be combined with clinical observations, patient history, and epidemiological information. This test has not been evaluated for monitoring treatment of infection. This test has been authorized by the FDA under an Emergency Use Authorization (EUA) for use by authorized laboratories. Testing performed on the [employer] GeneXpert utilizing real-time RT-PCR. All SARS CoV2 and positive influenza A/B results are reported to [facility]. UA ClnCatch+Micro w/rflx Cul t Reviewed date:01/31/2024 04:57:22 PM Interpretation: Performing Lab:[facility], [address] [place] [phone] Notes/Report: [id number] Urine, Clean Catch Color Urine Dark Yellow Appearance Urine Cloudy PH 5.5 5.0-9.0 Glucose Urine UA >=1000 Negative mg/dL Urine Blood Negative Negative Specific [place] - Urine >= 1.030 1.005-1.025 Urine Protein 30 (1+) Neg-Trace mg/dL Urine Ketones Trace Negative mg/dL Nitrite Urine Negative Negative Leukocyte Esterase Urine Negative Negative CT angio head neck Reviewed date:01/31/2024 01:34:01 PM Interpretation: Performing Lab: Notes/Report: [address] [address] [address] Scan Report Signed Patient: Rachael Sanon MR#: [id number] : 1950 Acct:[id number] Age/Sex: 73 / M ADM Date: 01/30/24 Loc: .ED Attending Dr: Ordering Physician: Solomon Jacobson MD Date of Service: 01/30/24 Procedure(s): CT angio head neck Accession Number(s): [id number] cc: Mahad John MD; Solomon Jacobson MD EXAMINATION: CT ANGIOGRAM HEAD CT ANGIOGRAM NECK CLINICAL INFORMATION: Reason for Exam Dizziness with neck pain./vertebral artery stenos COMPARISON: Same day CT head without contrast, MRI of the brain without contrast 10/25/2021 TECHNIQUE: Initial noncontrast ict development manager imaging of the head and neck was performed. Comparison is made with noncontrast head CT from earlier today. Test bolus sequences followed by intravenous administration 70 mL of Omnipaque 350. Helical imaging was performed in the axial plane from the aortic arch to the skull vertex. Delayed postcontrast imaging of the head was also performed. The data was processed at the cardiac technologist workstation for generation of MIP sequences. Angled MIPs and volume rendered reformatted images were also generated at an offline 3D workstation. Stenoses are assessed in accordance with NASCET criteria unless otherwise indicated. DLP: 1555 mGy-cm This CT examination was performed using dose optimization techniques as appropriate, variously including the following: *Automated exposure control. *Adjustment of mA and/or kV according to patient size (this includes techniques or standardized protocols for targeted exams where dose is matched to indication/reason for exam; i.e. extremities or head). *Use of iterative reconstruction technique. FINDINGS: CT Head: There is no evidence of acute intracranial hemorrhage or edematous territorial infarction. A few foci of hypoattenuation in the periventricular and deep white matter are consistent with mild microangiopathy. Hypodensities in the basal ganglia correspond to enlarged perivascular spaces. Bradford-white matter differentiation is preserved. The ventricles are normal in size and configuration. No evidence for obstructive hydrocephalus. No abnormal mass effect or midline shift. No extra-axial fluid collections. No pathologic intra-axial enhancement or regional oligemia. No acute soft tissue or osseous abnormalities. The mastoid air cells and paranasal sinuses are clear. CT Neck: The thyroid gland and remaining cervical soft tissues are within normal limits. No significant abnormality of the cervical spine. CT Upper Chest: The visualized lung apices and upper mediastinum are within normal limits. Neck CTA: Aortic Arch: Normal contour and caliber. Classic 3 vessel branching pattern of the aortic arch. Great Vessel Origins: No significant stenosis of the branch origins. Right Common Carotid Artery: No focal stenosis or occlusion. Cervical Right Internal Carotid Artery: Mild calcific atherosclerotic disease of the carotid bulb and proximal internal carotid artery without flow-limiting stenosis. Left Common Carotid Artery: No focal stenosis or occlusion. Cervical Left Internal Carotid Artery: Calcific atherosclerotic disease of the carotid bulb and proximal internal carotid artery causing less than 50% stenosis. Cervical Right Vertebral Artery: No focal stenosis or occlusion. Cervical Left Vertebral Artery: No focal stenosis or occlusion. Brain CTA: Intracranial Internal Carotid Arteries: No focal stenosis or occlusion. Right Anterior Cerebral Artery: Normal A1 segment. Normal opacification of the distal AMADA segments. Left Anterior Cerebral Artery: Normal A1 segment. Normal opacification of the distal AMADA segments. Anterior Communicating Artery: Normal. Right Middle Cerebral Artery: Normal M1 segment of the MCA without focal stenosis or occlusion. Normal arborization of the distal segments. Left Middle Cerebral Artery: Normal M1 segment of the MCA without focal stenosis or occlusion. Normal arborization of the distal segments. Right Vertebral Artery: Normal V4 segment. Left Vertebral Artery: Normal V4 segment. Basilar Artery: Normal without focal stenosis or occlusion. Normal appearance of the proximal superior cerebellar arteries. Right Posterior Cerebral Artery: Normal P1 segment. Normal opacification of the distal LOAF COUNTER segments. Left Posterior Cerebral Artery: Normal P1 segment. Normal opacification of the distal LOAF COUNTER segments. Normal opacification of the superior sagittal, straight, transverse, and sigmoid sinuses. CT/CT angio head neck IMPRESSION: No arterial high grade stenosis or large vessel occlusion in the head or neck. No evidence of arterial dissection. Dictated By: Jamshid Ferrer Signed By: <Electronically signed by Jamshid Ferrer in OV> 01/30/24 2240 DD/ 2210 TD/TT: Neuro Ophthalmologist: [address] [address] [address] Scan Report Signed Patient: Rachael Sanon MR#: [id number] : 1950 Acct:[id number] Age/Sex: 73 / M ADM Date: 01/30/24 Loc: HO.ED Attending Dr: Ordering Physician: Solomon Jacobson MD Date of Service: 01/30/24 Procedure(s): CT ang io head neck Accession Number(s): [id number] cc: Mahad John MD; Solomon Jacobson MD EXAMINATION: CT ANGIOGRAM HEAD CT ANGIOGRAM NECK CLINICAL INFORMATION: Reason for Exam Dizziness with neck pain./vertebral artery stenos COMPARISON: Same day CT head without contrast, MRI of the brain without contrast 10/25/2021 TECHNIQUE: Initial noncontrast ict development manager imaging of the head and neck was performed. Comparison is made w ith noncontrast head CT from earlier today. Test bolus sequences followed by intravenous administration 70 mL of Omnipaque 350. Helic al imaging was performed in the axial plane from the aortic arch to t he skull vertex. Delayed postcontrast imaging of the head was also performed. The data was processed at the cardiac technologist workstation for generation of MIP sequences. Angled MIPs and volume rendered reformatted images were also generated at an offline 3D workstati on. Stenoses are assessed in accordance with NASCET criteria unless otherwise indicated. DLP: 1555 mGy-cm This CT examination was performed using dose optimization techniques as appropriate, various ly including the following: *Automated exposure control. *Adjustment of mA and/or kV according to patient size (this includes techniques or standardized protocols for targeted exams where dose is matched to indication/reason for exam; i.e. extremities or head). *Use of iterative reconstruction technique. FINDINGS: CT Head: There is no evidence of acute intracranial hemorrhage or edematous territorial infarcti on. A few foci of hypoattenuation in the periventricular and deep white matter are consistent with mild microangiopathy. Hypodensities in the basal ganglia correspond to enlarged perivascula r spaces. Bradford-white matter differentiation is preserved. The ventricles are normal in size and configuration. No evidence for obstructive hydrocephalus. No abnormal mass effect or midline shift. No extra-axial fluid collections. No pathologic intra-axial enhancement or regional oligemia. No acute soft tissue or osseous abnormalities. The mastoid air cells and paranasal sinuse s are clear. CT Neck: The thyroid gland an d remaining cervical soft tissues are within normal limits. No significa nt abnormality of the cervical spine. CT Upper Chest: The visualized lung apices and upper mediastinum are within normal limits. Neck CTA: Aortic Arch: Normal contour and caliber. Classic 3 vessel branching pattern of the aorti c arch. Great Vessel Origins : No significant stenosis of the branch origins. Right Common Carotid Artery: No focal stenosis or occlusion. Cervical Right Inter nal Carotid Artery: Mild calcific atherosclerotic disease of the carot id bulb and proximal internal carotid artery without flow-limitin g stenosis. Left Common Carotid Artery: No focal stenosis or occlusion. Cervical Left Textbook Associate al Carotid Artery: Calcific atherosclerotic disease of the carotid bulb and proximal internal carotid artery causing less than 50% stenosis. Cervical Right Vertebral Artery: No focal stenosis or occlusion. Cervical Left Verteb ral Artery: No focal stenosis or occlusion. Brain CTA: Intracranial Interna l Carotid Arteries: No focal stenosis or occlusion. Right Anterior Cereb ral Artery: Normal A1 segment. Normal opacification of the distal AMADA segments. Left Anterior Cerebr al Artery: Normal A1 segment. Normal opacification of the distal AMADA segments. Anterior Communicati ng Artery: Normal. Right Middle Cerebra l Artery: Normal M1 segment of the MCA without focal stenosis or occlusion. Normal arborization of the distal segments. Left Middle Cerebral Artery: Normal M1 segment of the MCA without focal stenosis or occlusio n. Normal arborization of the distal segments. Right Vertebral Olivia ry: Normal V4 segment. Left Vertebral Arter y: Normal V4 segment. Basilar Artery: Norm al without focal stenosis or occlusion. Normal appearance of the proximal superior cerebellar arteries. Right Posterior Cerebral Artery: Normal P1 segment. Normal opacification of the distal LOAF COUNTER segments. Left Posterior Cereb ral Artery: Normal P1 segment. Normal opacification of the distal LOAF COUNTER segments. Normal opacification of the superior sagittal, straight, transverse, and sigmoid sinuses. CT/CT angio head neck IMPRESSION: No arterial high gra de stenosis or large vessel occlusion in the head or neck. No evidence of arterial dissection. Dictated By: Jamshid Ferrer Signed By: <Electronically signed by Jamshid Ferrer in OV> 01/30/242239 DD/ TD/TT: Neuro Ophthalmologist: CT head/brain wo con Reviewed date:01/31/2024 12:32:42 PM Interpretation: Performing Lab: Notes/Report: [address] [address] [address] Scan Report Signed Patient: Rachael Sanon MR#: M [id number] : 1950 Acct:[id number] Age/Sex: 73 / M ADM Date: 01/30/24 Loc: HO.ED Attending Dr: Ordering Physician: Radha Caal Date of Service: 01/30/24 Procedure(s): CT head/brain wo IV con Accession Number(s): [id number] cc: Mahad John MD; Radha Caal EXAMINATION: CT HEAD WITHOUT CONTRAST CLINICAL INFORMATION: Altered mental status COMPARISON: CT head October 25, 2021 TECHNIQUE: Contiguous axial imaging was performed from the skull base to vertex without intravenous administration of contrast. Coronal and sagittal reformatted images are performed at the CT scanner. [This CT examination was performed using dose optimization techniques as appropriate, variously including the following: *Automated exposure control *Adjustment of mA and/or kV according to patient size (this includes techniques or standardized protocols for targeted exams where dose is matched to indication/reason for exam; i.e. extremities or head) *Use of iterative reconstruction technique] DLP: 742 mGy-cm. FINDINGS: There is no evidence of acute intracranial hemorrhage or territorial infarction. No abnormal mass-effect or midline shift is seen. Bradford to white matter differentiation is well preserved. No extra-axial fluid collections are identified. The ventricles are normal in size. There is no abnormal attenuation within the brain parenchyma. There is no osseous abnormality. The mastoid air cells and visualized portions of the paranasal sinuses are well-aerated. CT/CT head/brain wo IV con IMPRESSION: No acute intracranial pathology. Dictated By: Dustin Cano MD Signed By: <Electronically signed by Dustin Cano MD in OV> 01/30/24 1515 DD/ 1410 TD/TT: Neuro Ophthalmologist: [place] [address] CT Scan Report Signed Patient: Rachael Sanon MR#: M [id number] : 1950 Acct:[id number] Age/Sex: 73 / M ADM Date: 01/30/24 Loc: HO.ED Attending Dr: Ordering Physician: Radha Caal Date of Service: 01/30/24 Procedure(s): CT head/brain wo IV con Accession Number(s): [id number] cc: Mahad John MD; Radha Caal EXAMINATION: CT HEAD WITHOUT CONTRAST CLINICAL INFORMATION: Altered mental status COMPARISON: CT head October 25, 2021 TECHNIQUE: Contiguous axial imaging was performed from the skull base to vertex without intravenous administration of contrast. Coronal and sagittal reformatted images are performed at the CT scanner. [This CT examination was performed using dose optimization techniques as appropriate, variously including the following: *Automated exposure control *Adjustment of mA and/or kV according to patient size (this includes techniques or standardized protocols for targeted exams where dose is matched to indication/reason for exam; i.e. extremities or head) *Use of iterative reconstruction technique] DLP: 742 mGy-cm. FINDINGS: There is no evidence of acute intracranial hemorrhage or territorial infarction. No abnor mal mass-effect or midline shift is seen. Bradford to white matter differentiation is well preserved. No extra-axial fluid collections are identified. The ventricles are normal in size. There is no abnormal attenuation within the brain parenchyma. There is no osseous abnormality. The mastoid air cell s and visualized portions of the paranasal sinuses are well-aerated. CT/CT head/brain wo IV con IMPRESSION: No acute intracrania l pathology. Dictated By: Dustin Cano MD Signed By: <Electronically signed by Dustin Cano MD in OV> 01/30/24 1515 DD/ 1410 TD/TT: Neuro Ophthalmologist: RADHAMES XR chest 1V Reviewed date:01/31/2024 12:33:00 PM Interpretation: Performing Lab: Notes/Report: [address] [address] XRay Report Signed Patient: Rachael Sanon MR#: M [id number] : 1950 Acct:[id number] Age/Sex: 73 / M ADM Date: 01/30/24 Loc: HO.ED Attending Dr: Ordering Physician: Radha Caal Date of Service: 01/30/24 Procedure(s): XR chest 1V Accession Number(s): [id number] cc: Mahad John MD; Radha Caal EXAMINATION: XR CHEST CLINICAL INFORMATION: Altered mental status COMPARISON: Chest x-ray April 18, 2023 TECHNIQUE: Frontal view of the chest was obtained. 2:05 PM FINDINGS: No significant abnormality is noted involving the heart, lungs, mediastinum, bony thorax or soft tissues. XR/XR chest 1V IMPRESSION: Unremarkable examination. Dictated By: Dustin Cano MD Signed By: <Electronically signed by Dustin Cano MD in OV> 01/30/241515 DD/ 1400 TD/TT: Neuro Ophthalmologist: RADHAMES [address] [address] XRay Report Signed Patient: Rachael Sanon MR#: M [id number] : 1950 Acct:[id number] Age/Sex: 73 / M ADM Date: 01/30/24 Loc: HO.ED Attending Dr: Ordering Physician: Radha Caal Date of Service: 01/30/24 Procedure(s): XR teri st 1V Accession Number(s): [id number] cc: Mahad John MD; Radha Caal EXAMINATION: XR CHEST CLINICAL INFORMATION: Altered mental status COMPARISON: Chest x-ray [facility] 2022 TECHNIQUE: Frontal view of the chest was obtained. 2:05 PM FINDINGS: No significant abnormality is noted involving the heart, lungs, mediastinum, bony thorax or soft tissues. XR/XR chest 1V IMPRESSION: Unremarkable examination. Dictated By: Dustin Cano MD Signed By: <Electronically signed by Dustin Cano MD in OV> 01/30/241515 DD/ 1400 TD/TT: Neuro Ophthalmologist: RADHAMES LA ClnCatch+Micro w/rflx Cul t Reviewed date:01/31/2024 12:39:15 PM Interpretation: Performing Lab:[facility], [address] [place] [id number] Notes/Report: [id number] Urine, Clean Catch Color Urine Dark Yellow Appearance Urine Cloudy PH 5.5 5.0-9.0 Glucose Urine UA >=1000 Negative mg/dL Urine Blood Negative Negative Specific [place] - Urine >= 1.030 1.005-1.025 Urine Protein 30 (1+) Neg-Trace mg/dL Urine Ketones Trace Negative mg/dL Nitrite Urine Negative Negative Leukocyte Esterase Urine Negative Negative RBC Urine 0-2 0-2 /HPF WBC Urine 0-5 0-5 /HPF Squamous Epithelial Cell Urine 0-2 0-2 /HPF Bacteria Urine None Seen None Seen Hyaline Casts Urine 3-5 0-2 /LPF Diabetic Eye Exam Reviewed date:04/13/2024 01:37:37 PM Interpretation:No diabetic retinopathy Performing Lab: Notes/Report: No diabetic retinopathy Prostate Specific Antigen Reviewed date:04/19/2024 08:49:31 AM Interpretation: Performing Lab:[facility], [address] [place] [phone] Notes/Report: Prostate Specific Antigen 1.52 <0.05-4.0 ng/mL PSA methodology: Victoria Alinity i Chemiluminescent Microparticle Immunoassay (CMIA) Vitamin B12 and Folate Reviewed date:05/21/2024 10:52:51 AM Interpretation: Performing Lab:[address] [address] Notes/Report: Vitamin B12 435 200-900 pg/mL NORMAL 200-900 PG/ML INDETERMINATE 160-199 PG/ML DEFICIENT < 160 PG/ML Folate 11.1 > or = 4.0 ng/mL Reference Values: > or = 4.0 ng/mL < 4.0 ng/mL suggests folate deficiency Methotrexate, aminopterin and folinic acid (leucovorin) are chemotherapeutic agents whose molecular structures are similar to folate; therefore, the Plumber'S Assistant folate assay cannot be used for patients using these drugs. TSH reflex Free T4 Reviewed date:05/21/2024 11:01:50 AM Interpretation: Performing Lab:[address] [address] Notes/Report: TSH reflex Free T4 0.97 0.32-4.0 uIU/mL Glucose, Whole Blood Reviewed date:09/14/2024 12:30:34 PM Interpretation: Performing Lab:[address] [address] Notes/Report: Glucose, Whole Blood 138 60-115 mg/dL METER # : [id number] Pathology Reviewed date:09/18/2024 12:42:22 PM Interpretation: Performing Lab:[address] [address] Notes/Report: --- Name: Rachael Sanon Age/Sex: 74/M : 1950 Unit#: [id number] Attend Dr: Juancarlos Brown MD Re09/14/24 Status : [facility] Location: [facility] Disch: --- SPEC : [id number] RECD: 09/14/24 STATUS: TANI KAUFMAN NUM: [id number] KEYSHAWN: 09/14/[address] [facility] [address]: Juancarlos Brown MD ENTERED: 09/14/24-10 43 SP TYPE: Surgical OTHR DR: Mahad John MD ORDERED: HE Stain/9, Gross Micro L4/3 [...] fragments of pink white soft tissue measuring 0.2-0.5 cm in greatest dimension which are wrapped [...] paper and entirely submitted for microscopic examination, 3 pieces in cassette C1. CONTINUED ON NEXT PAGE --- Name: Rachael Sanon Age/Sex: 74/M : 1950 [id number]#: [id number] Attend Dr: Juancarlos Brown MD Re09/14/24 Status : [facility] Location: [facility] Disch: --- SPEC : [id number] RECD: 09/14/24 STATUS: TANI KAUFMAN NUM: [id number] KEYSHAWN: 09/14/[address] [facility] [address]: Juancarlos Brown MD ENTERED: 09/14/24-10 43 SP TYPE: Surgical OTHR : Mahad John MD ORDERED: HE Stain/9, Gross Micro L4/3 Gross Description (Continued) The larger measures 1.5 x 1.2 x 0.9 cm in greatest dimension. The outer surface is smooth. The base shows a 0.3 cm in diameter resection site. The resection site is inked blue. The specimen is serially sectioned and entirely submitted for microscopic examination, 4 pieces in cassette C2. [facility] Copies To: Mahad John MD [facility] [address] [place], [place] [id number] Juancarlos Brown MD [facility] [address] [place] [address] --- Signed (signature on file) Leora Holguin 09/17/24 1235 --- END OF REPORT Daniel Betancourt Reviewed date:09/25/2024 04:53:21 PM Interpretation: Performing Lab:[facility], [address] [place] [id number] Notes/Report: Daniel Betancourt See Note Specimen held untested for 24 hours; Call to request Chemistry testing. Hemoglobin A1c Reviewed date:09/25/2024 04:53:31 PM Interpretation: Performing Lab:[facility], [address] [place] [phone] Notes/Report: Hemoglobin A1c % 7.7 <6.0 % Hemoglobin A1C Reference Range Adults: 4.8 - 6.0 % Non diabetic: < 6.0 % Goal: < 7.0 % Additional Action Suggested: > 8.0 % Note: Hemoglobin A1c results are invalid for patients with abnormal amounts of HbF. Blood transfusions may impact the HbA1c concentration in the patient sample. Estimated Average Glucose 174 eAG = Estimated average glucose which is %A1C expressed as average glucose, using the formula of the W2K-Lpljtta Average Glucose study (ADAG), Diabetes Care, Vol.31,#8, 2007 Reason For Referral Reason small bowel obstruct ion Diagnosis 1 Small bowel obstruct ion (K56.609) Referral Organization Mahad John MD Referring Provider First Name Mahad Referring Provider Last Name Boo Referring Provider Speciality Internal M edicine Referred Provider Maldonado Mota Referred Provider Specialty Surgery General Notes Megan Ortiz 09:27:38 AM EDT > info faxed patient is aware of appt Referral Priority Routine Referral Appointment Date 10/27/2023 Reason SMALL BOWEL OBSTRUCT ION Diagnosis 1 Small bowel obstruct ion (K56.609) Referral Organization Mahad John MD Referring Provider First Name Mahad Referring Provider Last Name Boo Referring Provider Speciality Internal edicine Referred Provider Juancarlos Brown Referred Provider Specialty Gastroentero logy General Notes Megan Ortiz 09:08:28 AM EDT > was told by Roxana patient is aware of appt Jaswinder Patti A 02/23/2024 12:56:50 PM EDT > OFFICE NOTE RECD Referral Priority Routine Referral Appointment Date 01/24/2024 Reason memory loss Diagnosis 1 Memory loss (R41.3) Referral Organization Mahad John MD Referring Provider First Name Mahad Referring Provider Last Name Boo Referring Provider Speciality Internal edicine Referred Provider [facility] Referred Provider Specialty Neurology General Notes Nohemi San 03/13/2024 01:46:31 PM EDT > [facility] 04/30/2024 08:43:59 AM EDT > left message for office to call regarding apptAngel Annette 05/24/2024 11:08:27 AM >received another request for patient to have a brain MRI done, explained to them this is still being worked on. Patient has an implanted they are checking with the techs. Was told he is on a waiting list for this appt., AngelMegan 06/04/2024 01:12:15 PM EDT > spoke with patient son Rachael Schrader no longer wishes to go to [facility] memory clinic or hav the MRI done. Message sent to PCP see TE from 06-04-2024 Referral Priority Routine Medications Medication SIG (Take, Route, Frequency, Duration) Notes Start Date End Date Status hydroCHLOROthiazide 25 MG TAKE 1 TABLET BY MOUTH EVERY DAY IN THE MORNING FOR 30 DAYS Active Losartan Potassium 100 MG 1 tablet Orall y Once a day 10/10/2020 Active Lantus SoloStar 100 UNIT/ML INJECT 15 UN ITS SUBCUTANEOUSLY EVERY DAY DIRECTED Active Cyclobenzaprine HCl 10 MG 1 tablet at be dtime as needed Orally Once a day for 30 day(s) Not-Taking Aspir-81 81 MG 1 tablet Orally Once a day for 30 day(s) Not-Taking Acarbose 50 MG as directed Orally Not-Taking Ibuprofen 800 MG 1 tablet with food o r milk as needed Orally Three times a day Not-Taking Dicyclomine HCl 10 MG 2 capsules Orally Three times a day for 30 day(s) Active Zofran 4 MG 1 tablet Orally TID prn Not-Taking Meclizine HCl 25 MG 1 tablet as needed Orally every 12 hrs for 30 days Active Hyoscyamine Sulfate 0.125 MG 1 tablet as needed Orally twice a day for 90 days 10/16/2018 Not-Taking metFORMIN HCl 500 MG TAKE 1 TABLET BY MOUTH TWICE A DAY WITH MEALS Active Omeprazole 20 MG 1 capsule 30 minutes before morning meal Orally Once a day for 30 day(s) Active Suboxone 2-0.5 MG 1 film under the tongue and allow to dissolve Sublingual Once a day Active Fioricet 50-300-40 MG 1-2 capsule as nee ded Orally every 6 hours prn Not-Taking hydrALAZINE HCl 100 MG 1 tablet Orally t hree times daily Active OneTouch Ultra - as directed In Vitro 3 times a day for 30 days 08/29/2023 Active Acarbose 50 MG as directed Orally tid Active Pen [place] 33G X 4 MM as directed sq tw ice a day for 30 days 10/27/2023 Active Pioglitazone HCl 15 MG 1 tablet Orally O nce a day Active Tamsulosin HCl 0.4 MG 1 capsule 30 minut es after the same meal each day Orally Once a day Active Finasteride 5 MG 1 tablet Orally Once a day Active Carvedilol 6.25 MG 1 tablet with food Orally Twice a day Active Wellbutrin XL 150 MG 1 tablet in the morning Orally Once a day 10/10/2020 Active Atorvastatin Calcium 40 MG TAKE 1 TABLET BY MOUTH EVERY DAY Orally Once a day for 90 days Active Cefdinir 300 MG 1 capsule Orally every 12 hrs for 7 days Not-Taking Immunizations Vaccine Route Administration Date Status Comme nts Flu Vaccine Unknown 06/11/2012 Administered DECLINED, FLU Unknown 05/14/2013 Administered Prevnar 13 IM Intramuscular 02/05/2019 Administered Covid Vaccine Unknown 11/08/2020 Administered Pfizer Covid Vaccine Unknown 11/30/2020 Administered Pfizer SARS-COV-2 Pfizer Unknown 06/01/2021 Administered Flu Vaccine Unknown 04/22/2014 Refused PPSV23 (Pnemovax) Unknown 05/02/2014 Refused Flu Vaccine Unknown 08/12/2015 Refused patient refus ed Fluarix Quadrivalent Unknown 06/25/2016 Refused Fluarix Quadrivalent Unknown 08/12/2017 Refused Prevnar 13 Unknown 10/20/2017 Refused TDaP Unknown 01/05/2019 Refused Fluarix Quadrivalent Unknown 07/16/2019 Refused PPSV23 (Pnemovax) Unknown 01/14/2020 Refused Fluarix Quadrivalent Unknown 05/22/2020 Refused Fluarix Quadrivalent Unknown 07/20/2021 Refused Influenza High Dose Unknown 04/30/2022 Refused Influenza High Dose Unknown 05/15/2024 Refused Social History Tobacco Use: Social History Observation [...] ast year? No Points 0 Interpretation Negative Problems Problem Type SNOMED Code ICD Code Onset Dates Problem Status W/U Status Risk Notes Problem 97290426 Prostatism (N40.0) Active confirmed Problem Anxiety (30222785) Anxiety (F41.9) Active confirmed Problem 842098259 Diverticulitis (K57.92) Active confirmed Problem 07580764 Irritable bowel syndrome without diarrhea (K58.9) Active confirmed Problem 93188227 Lumbar disc dise ase (M51.9) Active confirmed Problem 73755839 Essential hypert ension (I10) Active confirmed Problem 37651398 Type 2 diabetes mellitus without complication (E11.9) Active confirmed Problem 44742186 Memory loss (R41.3) Active confirmed Problem 798300185 History of colon cancer (Z85.038) Active confirmed Problem Dysthymia (11628948) Dysthymia (F34.1) Active confirmed Problem 27671804 Heart burn (R12) Active confirmed Problem 167468418 Pure hypercholesterolemia (E78.00) Active confirmed Problem 958812601 Back pain, unspe cified back location, unspecified back pain laterality, unspecified chronicity (M54.9) Active confirmed Problem 404055792 BMI 32.0-32.9,ad ult (Z68.32) Active confirmed Problem Psychoactive substance dependence (0685355) Drug dependence (F19.20) Active confirmed Problem 882174160 SBO (small bowel obstruction) (K56.609) Active confirmed Problem 188791369 Dry eyes, bilate ral (H04.123) Active confirmed Vital Signs Blood pressure diastolic 84 mm Hg 09/28/2024 Height 68 in 09/28/2024 Blood pressure systolic 158 mm Hg 09/28/2024 Weight 216 lbs 09/28/2024 BMI 32.84 kg/m2 09/28/2024 Encounters Encounter Location Date Provider Diagnosis Mahad John MD [address] [place] [address] [id number] 01/27/2024 Mahad John Blood tests for rout ine general physical examination Z00.00 ; Essential hypertension I10 ; Prostatism N40.0 ; Pure hypercholesterolemia E78.00 and Type 2 diabetes mellitus without complication E11.9 Mahad John MD [address] [place] [address] [id number] 05/15/2024 Mahad John Memory loss R41.3 Mahad John MD [address] [place] [address] [id number] 09/21/2024 Mahad John Type 2 diabetes margi itus without complication E11.9 and Pure hypercholesterolemia E78.00 Mahad John MD [address] [place] [address] [id number] 10/27/2023 Mahad John Small bowel obstruct ion K56.609 and Type 2 diabetes mellitus without complication E11.9 Mahad John MD [address] [place] [address] [id number] 12/09/2023 Mahad John Type 2 diabetes margi itus without complication E11.9 ; History of colon cancer Z85.038 and Small bowel obstruction K56.609 Mahad John MD [address] [place] [id number] 01/24/2024 Mahad John Memory loss R41.3 ; Dizziness, nonspecific R42 and Neck pain, acute M54.2 Mahad John MD [address] [place] [id number] 03/02/2024 Mahad John Type 2 diabetes margi itus without complication E11.9 ; Essential hypertension I10 ; Prostatism N40.0 ; Pure hypercholesterolemia E78.00 and Dysthymia F34.1 Mahad John MD [address] [place] [address] [id number] 09/28/2024 Mahad John Type 2 diabetes margi itus without complication E11.9 and Encounter for general adult medical examination without abnormal findings Z00.00 Mahad John MD [address] [place] [address] [id number] 12/09/2023 Mahad John MD [address] [place] [address] [id number] 01/31/2024 Mahad John Dizziness R42 Mahad John MD [address] [place] [address] [id number] 05/03/2024 Mahad John Memory loss R41.3 Mahad John MD [address] [place] [address] [id number] 06/04/2024 Mahad John MD [address] [place] [address] [id number] 09/28/2024 Mahad John Assessments Encounter Date Diagnosis (ICD Code) Assessment Notes Treatment Notes Treatment Clinical Notes Section Notes 01/27/[address] ine general physical examination (ICD-10 - Z00.00) 01/27/2024 Essential hypertensi on (ICD-10 - I10) 05/15/2024 Memory loss (ICD-10 - R41.3) 09/21/2024 Type 2 diabetes mellitus without complication (ICD-10 - E11.9) 09/21/2024 Pure hypercholesterolemia (ICD-10 - E78.00) 10/27/2023 Small bowel obstruct ion (ICD-10 - K56.609) gradually getting better and not vomiting or losing weight so i don't think he needs to be in hospital. will refer to dr alan who took care of him in past 10/27/2023 Type 2 diabetes mellitus without complication (ICD-10 - E11.9) 12/09/2023 Type 2 diabetes mellitus without complication (ICD-10 - E11.9) 01/24/2024 Memory loss (ICD-10 - R41.3) referral to [facility] memory center 01/24/2024 Dizziness, nonspecif ic (ICD-10 - R42) on closer questioning seems that he gets confused for brief periods. possibly related to suboxone. son wants him to be checked for dementia 03/02/2024 Type 2 diabetes mellitus without complication (ICD-10 - E11.9) stable,. will continue current regiment 03/02/2024 Essential hypertensi on (ICD-10 - I10) stable, will continue current regiment 09/28/2024 Type 2 diabetes mellitus without complication (ICD-10 - E11.9) 09/28/2024 Encounter for genera l adult medical examination without abnormal findings (ICD-10 - Z00.00) 01/27/2024 Prostatism (ICD-10 - N40.0) 12/09/2023 History of colon can cer (ICD-10 - Z85.038) 01/24/2024 Neck pain, acute (ICD-10 - M54.2) seems minimal on exam. possible muscle strain. just observe 03/02/2024 Prostatism (ICD-10 - N40.0) stable, will continue current regiment and will continue to monitor 01/31/2024 Dizziness (ICD-10 - R42) order printed and putin future folder 05/03/2024 Memory loss (ICD-10 - R41.3) 01/27/2024 Pure hypercholesterolemia (ICD-10 - E78.00) 12/09/2023 Small bowel obstruct ion (ICD-10 - K56.609) patient still being bothered with bloating and discomfor with eating. had repeat ct that shows worsening of his partial small bowel obstruction and dr shane feels there may be a narrowing proximal to the anastamosis. will get dr brown's oppinion/ REFERRAL MADE AND FAXEDTO DR BROWN OFFICE, HE WILL REVIEW FOR URGENT APPT AND LET DR JOHN KNOW 03/02/2024 Pure hypercholesterolemia (ICD-10 - E78.00) stable, will continue current regiment 01/27/2024 Type 2 diabetes mellitus without complication (ICD-10 - E11.9) 03/02/2024 Dysthymia (ICD-10 - F34.1) doing well, will continue current regiment Plan Of Treatment Pending Test Test Name Order Date Electrocardiogram (EKG) 12/30/2017 Electrocardiogram (EKG) 01/05/2019 Electrocardiogram (EKG) 12/23/2016 CT ABD W&WO CONTRAST 02/19/2013 CT ABD & PELVIS NO CONTRAST 10/11/2023 MRI LUMBAR SPINE NO CONTRAST 06/24/2017 Liver Panel 09/21/2024 Glucose Fasting 09/21/2024 Lipid Panel with Reflex 09/21/2024 Vitamin B12 and Folate 05/15/2024 TSH reflex Free T4 05/15/2024 CT abdomen pelvis wo/w con 10/13/2023 MR head/brain wo con 05/03/2024 XR KUB 10/11/2023 Hemoglobin A1c 09/21/2024 Next Appt Details Provider Name:Mahad de la paz, 02/26/2025 07:45:00 AM, [address] [place] [address], [address], [place], [place], [phone], Provider Name:Mahad de la paz, 03/05/2025 09:30:00 AM, [address] [place] [address] Drive, [address], [place], [place], [phone], Provider Name:Mahad de la paz, 10/03/2025 11:00:00 AM, [address] [place] [address], [address], [place], [place], [phone], Insurance Providers Payer Name Payer Address Payer Phone Subscriber Number Group Number Insured Name Patient Relationship to Insured Coverage Start Date Coverage End Date [facility] [employer] [address] [address] [place] [address] [id number] RACHAEL CARTER Self - patient is the insured [employer] [address] [place] [address] [id number] RACHAEL CARTER Self - patient is the insured Medical (General) History Medical History History ICD Code HAD COLON RESECTION DR BRADFORD FOR LARGE POLYPS and adenocarcinoma [address] BAYLEE brown does colonoscopy every 2 years colonoscopy w/Dr. Brown on - repeat in 3 years, Colonoscopy done 05/09/18 repeat 2-[address] Brown09/16/24 colonoscopy repeat 2-3y 05/27/21 coloscopy completed, 3yr repeat (2023)
--- OUTSIDE RECORDS SUMMARY | 2024-10-17 16:23 | XMS_ITS | Clinical Summary ---
Author Organization [facility] Address [address] [place] [address] Phone Care Team Providers Care Fabric Normalizer Name Role Phone Mahad Haddad MD Primary [...] patient's age to complete this topic Insurance [facility] MEDICARE [facility] MEDICARE Care Teams Fabric Normalizer Relationship Specialty Start Date End Date Mahad Haddad MD [address] [place] [address] [id number] [place], [place] PCP - General 08/18/20
== END 2024-10-17 13:08 | disposition home or self-care (01) ==
LOC: HO.LAB 13:07
PROVIDERS: PCP Internal Medicine; Visit Provider Internal Medicine Nephrology
DX: I10 Essential (primary) hypertension (principal)
CPT/HCPCS: 36415; 80051; 82310; 82565; 82570; 84156; 84520

== ENCOUNTER 2024-11-02 09:26 | Emergency (ER) | payer MEDICARE, SELFPAY ==
--- NOTE | ~2024-11-02 | XR_ITS ---
EXAMINATION: XR CHEST CLINICAL INFORMATION: R lateral ABD/ lower rib pain COMPARISON: 01/30/2024, 04/18/2023. TECHNIQUE: 2 views of the chest were obtained. FINDINGS: Mild left hemidiaphragmatic elevation. This is unchanged. The cardiac, hilar, and mediastinal contours are normal. Mild stable dextro positioning of the heart. Lungs demonstrate low lung volumes left greater than right, with mild basilar scarring/atelectasis on the left. This appears stable. Lungs otherwise clear. There is no pneumothorax or pleural effusion. Soft tissues demonstrate mild gaseous distention of the colon, nonspecific. No discrete osseous abnormality. XR/XR chest 2V IMPRESSION: 1. Mildly chronically elevated left hemidiaphragm, with low lung volumes left greater than right, a stable finding. Lungs otherwise clear. 2. No acute bony abnormalities. 3. Gaseous distention of the colon incidentally noted. Electronically signed by: Solo Mejia MD 11/02/2024 11:12 AM EDT
--- NOTE | ~2024-11-02 | XR_ITS ---
EXAMINATION: XR ABDOMEN KUB CLINICAL INDICATION: R lateral ABD pain COMPARISON: None. Correlation made with CT abdomen and pelvis 10/26/2023. TECHNIQUE: AP view of the abdomen. FINDINGS: Bowel gas pattern demonstrates gaseous distention of the stomach, and gaseous distention of the colon including the sigmoid. There is moderate retained fecal residue in the right hemicolon and sigmoid. There is no small bowel dilatation or evidence of free air. No abnormal soft tissue calcifications. No organomegaly noted. There are retained lower lumbar bilateral stimulator leads. There is mild right convex scoliosis of the thoracolumbar spine with mild degenerative spondylosis. No acute bony abnormalities. XR/XR KUB IMPRESSION: 1. Gaseous distention of the stomach and colon, with moderate retained fecal material in the right colon and sigmoid. 2. No abnormal small bowel dilatation. 3. Ancillary findings as detailed. Electronically signed by: Solo Mejia MD 11/02/2024 11:15 AM EDT
[2024-11-02 09:29] VITALS: BP 202/81; PULSE 96; RESP 18; TEMP 36.9; O2SAT 98; BMI 34.1
--- NOTE | 2024-11-02 09:36 | ECG_ITS ---
Test Reason : ABD AIN Blood Pressure : */* mmHG Vent. Rate : 84 BPM Atrial Rate : 84 BPM P-R Int : 142 ms QRS Dur : 90 ms QT Int : 378 ms P-R-T Axes : 47 0 119 degrees QTcB Int : 446 ms Normal sinus rhythm Nonspecific ST and T wave abnormality Abnormal ECG When compared with ECG of 30-Jan-2024 13:38, No significant change was found Referred By: Generic ED Physician Electronically Signed By: EVI ALICEA MD
[2024-11-02 10:02] LABS: MANUAL DIFF FLAG NO
[2024-11-02 10:03] LABS: Basophils Absolute Auto 0.1 X10*3/uL (0.0-0.2); Basophils Percent Auto 0.8 % (0-2); Eosinophils Absolute Auto 0.1 X10*3/uL (0.0-0.4); Eosinophils Percent Auto 1.8 % (0-4); Hematocrit 37.1 % (42.0-52.0); Hemoglobin 12.3 g/dl (14.0-18.0); Imm Gran Abs Auto 0.03 X10*3/uL (0.00-0.03); Imm Gran Pct Auto 0.4 % (0.0-0.4); Lymphocytes Absolute Auto 1.6 X10*3/uL (1.2-4.9); Lymphocytes Percent Auto 21.3 % (20-40); Mean Corpuscular HGB Conc 33.2 g/dl (31.0-36.0); Mean Corpuscular Hemoglobin 27.6 pg (27.0-33.0); Mean Corpuscular Volume 83.2 fL (80.0-98.0); Mean Platelet Volume 9.7 fL (9.4-12.4); Monocytes Absolute Auto 0.5 X10*3/uL (0.1-1.2); Monocytes Percent Auto 6.9 % (2-11); Neutrophils Absolute Auto 5.3 x10*3/uL (2.0-8.3); Neutrophils Percent Auto 68.8 % (45-73); Platelet Count 277 X10*3/uL (160-400); Red Blood Count 4.46 X10*6/uL (4.60-5.80); Red Cell Distribution Width 14.3 % (11.0-16.0); White Blood Count 7.7 X10*3/uL (4.8-10.8)
--- NOTE | 2024-11-02 10:03 | ED.ABDPAIN ---
HPI - Abdominal Pain General Chief Complaint: Abdominal Pain Stated Complaint: r side pain Time Seen by Provider: 11/02/24 09:45 Source: patient Limitations: no limitations History of Present Illness HPI narrative: patient is a 74-year-old male who presents emergency department for evaluation. He is endorsing pain to the right lateral abdomen constant over the past 5 weeks that exacerbates with movements such as raising the arm above the head, twisting turning or lying on the right side. he is able to point to the area along the lateral abdomen mid axillary line with 2 fingers that is painful and denies any radiation of the pain. He denies having any precipitating injury that may have brought this on. He has tried topical ice / heat/Tylenol without much improvement. He does endorse a known history of Small kidney stones not previously requiring any intervention. He has ongoing prostate issues for which he follows with Dr. Garland but states that he has not noticed any change in his urinary ability since the onset of this pain. Denies fevers, chills, chest pain, cough, shortness of breath, difficulty breathing, nausea, vomiting, hematemesis, diarrhea, constipation, hematochezia, melena, dysuria, hematuria. Related Data Home Medications ?Medication ?Instructions ?Recorded ?Confirmed aspirin 81 mg tablet,delayed 81 mg PO DAILY 08/12/20 09/14/24 release (Adult Low Dose Aspirin) atorvastatin 40 mg tablet 40 mg PO DAILY 08/12/20 09/14/24 omeprazole 20 mg capsule,delayed 20 mg PO BID heartburn 08/12/20 09/14/24 release lifitegrast 5 % eye drops in a 1 drp ophthalmic (eye) BID 12/23/22 09/14/24 dropperette (Xiidra) bupropion HCl 150 mg tablet,12 hr 150 mg PO BID 01/18/24 09/14/24 sustained-release carvedilol 6.25 mg tablet 6.25 mg PO BID 01/18/24 09/14/24 hydrochlorothiazide 25 mg tablet 25 mg PO DAILY 01/18/24 09/14/24 pioglitazone 15 mg tablet 15 mg PO DAILY 01/18/24 09/14/24 Previous Rx's ?Medication ?Instructions ?Recorded OneTouch Verio test strips (blood #300 ea 12/17/20 sugar diagnostic) pen needle, diabetic 32 gauge x #50 ea 05/12/21 5/32 (BD Theresa 2nd Gen Pen Needle) OneTouch Verio Meter #1 ea 01/15/21 (blood-glucose meter) insulin glargine 100 unit/mL (3 15 unit (0.15 mL) subcut QAM 90 04/22/21 mL) subcutaneous pen (Lantus days #15 mL Solostar U-100 Insulin) acarbose 50 mg tablet 75 mg (1.5 x 50 mg) PO TID 90 days 04/05/22 #405 tabs metformin 500 mg tablet 500 mg PO DAILY #30 tabs 04/20/22 buprenorphine 2 mg-naloxone 0.5 mg 1 film buccal DAILY #1 ea 09/04/22 sublingual film (Suboxone) celecoxib 200 mg capsule (Celebrex) 200 mg PO BID 30 days #60 caps 12/23/22 simethicone 125 mg capsule (Gas 125 mg PO BID-QID PRN abdominal 10/27/23 Relief (simethicone)) distention #30 caps finasteride 5 mg tablet 5 mg PO DAILY 90 days #90 tabs 12/20/23 losartan 50 mg tablet 50 mg PO DAILY #90 tabs 12/20/23 hydralazine 100 mg tablet 100 mg PO TID 90 days #270 tabs 01/18/24 meclizine 25 mg tablet 25 mg PO TID PRN dizziness #20 tabs 01/30/24 lidocaine 5 % topical patch 1 patch topical DAILY #15 ea 11/02/24 Allergies Allergy/AdvReac Type Severity Reaction Status Date / Time No Known Allergies Allergy Verified 11/02/24 09:31 Review of Systems Review of Systems Yes all other systems are reviewed and are negative [facility] Past Medical History Attestation statement: The following information was validated with the patient. 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 Surgical History Hx of inguinal hernia repair S/P placement of nerve stimulator Hx of surgical procedure Hx of cystoscopy Hx of lithotripsy Hx of right hemicolectomy Hx of colonoscopy (09/14/24) Hx of esophagogastroduodenoscopy Family History Family History Father Unknown family medical history Mother Unknown family medical history Social History Social History Are you a primary adult live in caregiver to a significant other at home: No Do you presently have visiting nurse or other home services: No Alcohol intake: never Patient Tobacco Use Status: Never used Tobacco Smoked in Last 30 Days: No Second Hand Smoke Exposure: No Use of substances other than those prescribed or required for medical reasons: No Advance Directives: Yes Advance Directives Information Provided: Yes Advance Directives on File: No Advance Directives Date on File: 09/08/14 Current occupational status: disabled 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 No acute distress.?Normal affect.?? Neck: Normal inspection.? Neck supple.?? CVS: Heart sounds normal. Normal heart rate and rhythm.? Pulses normal.?? Respiratory: No respiratory distress.? Lung sounds clear to auscultation bilaterally?? Abdomen: Soft and non-tender. to the right lateral abdomen mid axillary line just below the 10th rib, there is tenderness upon palpation, area is localized to approximately 5 cm region. No rebound tenderness at McBurney's point. Negative psoas sign. Negative Rovsing sign. Negative Stafford sign. No CVAT. Normoactive bowel sounds. Skin: Skin warm and dry.? Normal skin color.? Extremities: No lower extremity edema.? Neuro: Moves all extremities spontaneously. Sensation intact bilaterally. Ambulates with normal steady gait. Course Reevaluation(s) Reevaluation #1: CBC is without leukocytosis, has a mild normocytic anemia stable at baseline not meeting transfusion criteria, no thrombocytopenia Chemistries reveal no electrolyte derangement, no REJI. Non-anion gap hyperglycemia with random glucose of 344. LFTs and lipase within normal range. High sensitive troponin below detectable limits, EKG reveals normal sinus rhythm with a ventricular rate of 84, QTC 446, no ST-elevation, no ST-depression, no apparent ischemic changes. urinalysis without evidence of infection or microscopic hematuria. Chest x-ray without acute abnormality, no notable consolidation or opacity in the right lower lobe to suggest an etiology for the pain. KUB shows gaseous distention with moderate retained fecal material in the right colon and sigmoid no notable small bowel dilation or obstructive gas pattern. with these findings with the patient, discussed potential for constipation as etiology for this pain, however I do still favor that this is muscular in nature given the exacerbating factors and localized pain. Advised continue conservative treatment, Lidoderm patches to the area, outpatient follow-up with PCP and strict return precautions Time: 11:25 Medical Decision Making Medical Decision Making MDM Narrative: patient is a 74-year-old male with past medical history of type 2 diabetes, hypertension, GERD, chronic pain syndrome, SBO who presents emergency department for evaluation of right lateral abdominal pain as per PE portion of this note is localized to a 5 cm region just below the 10th rib along the mid axillary line and nonradiating. Area is tender upon palpation in exacerbates with movement. Seemingly favoring more of a muscular nature. Denying associated gastrointestinal, genitourinary, or respiratory symptoms with this. His abdominal examination is benign. He is noted to be hypertensive 202/81, endorsing that he did take his blood pressure medication just before coming. Overall he is without signs of systemic toxicity afebrile no tachycardia and certainly no hypertension. No peritoneal signs no tenderness upon my palpation, no rebound tenderness or guarding. No associated chest pain shortness of breath or URI symptoms to suggest pneumonia, no clinical evidence of DVT or personal history of VTE/malignancy to suggest pulmonary embolism. No high-risk past medical history to suggest myocardial infarction and is without chest pain, less likely AAA, aortic dissection. No abdominal tenderness upon palpation, negative Stafford sign, unlikely acute cholecystitis, choledocholithiasis, no fever or jaundice to suggest acute cholangitis, may possibly be biliary colic secondary to cholelithiasis. No rebound tenderness at McBurney's point, rigidity, guarding to suggest acute appendicitis. No distention or rigidity to suggest GI perforation. No associated genitourinary symptoms to suggest UTI/pyelonephritis, renal colic, hydronephrosis. Patient is noted to have elevated blood pressure in the emergency department 190/would not 10, asymptomatic, states he has taken his antihypertensive regimen as prescribed, reviewed with patient, he she had keep a log of his blood pressure readings over the next 2 weeks at least 2 to 3 times a week after sitting for 10-15 minutes relaxed without stress and present this log to his primary care doctor for evaluation. Differential Diagnosis Differential Diagnoses: The differential diagnosis associated with the presentation includes (See narrative above) Admission/Observation Consideration of admission/observation: Escalation of care including admission/observation considered (See narrative above ) Lab Data MDM Lab Attestation statement: I reviewed the patient's lab results. 11/02/24 09:57 11/02/24 09:57 Labs: Lab Results 11/02/24 11/02/24 Range/Units 09:57 10:36 WBC 7.7 (4.8-10.8) X10*3/uL RBC 4.46 L (4.60-5.80) X10*6/uL Hgb 12.3 L (14.0-18.0) g/dl Hct 37.1 L (42.0-52.0) % MCV 83.2 (80.0-98.0) fL MCH 27.6 (27.0-33.0) pg MCHC 33.2 (31.0-36.0) g/dl RDW 14.3 (11.0-16.0) % Plt Count 277 (160-400) X10*3/uL MPV 9.7 (9.4-12.4) fL Immature Gran % (Auto) 0.4 (0.0-0.4) % Neut % (Auto) 68.8 (45-73) % Lymph % (Auto) 21.3 (20-40) % [place] % (Auto) 6.9 (2-11) % Eos % (Auto) 1.8 (0-4) % Baso % (Auto) 0.8 (0-2) % Lymph # (Auto) 1.6 (1.2-4.9) X10*3/uL [place] # (Auto) 0.5 (0.1-1.2) X10*3/uL Eos # (Auto) 0.1 (0.0-0.4) X10*3/uL Baso # (Auto) 0.1 (0.0-0.2) X10*3/uL Abs Immat Gran (auto) 0.03 (0.00-0.03) X10*3/uL Absolute Neuts (auto) 5.3 (2.0-8.3) x10*3/uL Absolute Nucleated RBC 0.000 (0.0-0.012) X10*3/uL Nucleated RBC % (auto) 0.0 (0.0-0.2) /100WBC Sodium 137 (135-145) mmol/L Potassium 4.3 (3.3-5.1) mmol/L Chloride 107 (96-108) mmol/L Carbon Dioxide 24 (22-29) mmol/L Anion Gap 10 L (12-20) BUN 14 (9-16) mg/dL Creatinine 0.96 (0.5-1.4) mg/dL Estim Creat Clear Calc 77.8 Estimated GFR > 60 Random Glucose 344 H (60-115) mg/dL Calcium 9.0 (8.4-10.2) mg/dL Magnesium 1.7 (1.6-2.6) mg/dL Total Bilirubin 0.3 (0.0-1.0) mg/dL AST 20 (5-37) U/L ALT 13 (0-40) U/L Alkaline Phosphatase 75 (39-117) U/L Troponin I High Sens < 2.7 (<3.5-35.0) ng/L Total Protein 7.3 (6.5-8.0) g/dL Albumin 3.9 (3.5-5.0) g/dL Lipase 15 (8-78) U/L Urine Color Yellow Urine Appearance Clear Urine pH 5.5 (5.0-9.0) Ur Specific Friedens >= 1.030 H (1.005-1.025) Urine Protein Negative (Neg-Trace) mg/dL Urine Glucose (UA) >=1000 H (Negative) mg/dL Urine Ketones Negative (Negative) mg/dL Urine Blood Negative (Negative) Urine Nitrite Negative (Negative) Ur Leukocyte Esterase Negative (Negative) Urine RBC 0-2 (0-2) /HPF Urine WBC 0-5 (0-5) /HPF Ur Squamous Epith Cells 0-2 (0-2) /HPF Urine Bacteria None Seen (None Seen) Hyaline Casts 0-2 (0-2) /LPF Independent Interpretation I performed an independent interpretation of an: EKG ( See course narrative) and Plain X-Ray ( CXR no consolidation or infiltrate) Radiology Impression Discussion of test interpretation with radiology: I have reviewed the radiologist's reading. Radiologist Impression: XR/XR chest 2V IMPRESSION: 1. Mildly chronically elevated left hemidiaphragm, with low lung volumes left greater than right, a stable finding. Lungs otherwise clear. 2. No acute bony abnormalities. 3. Gaseous distention of the colon incidentally noted. XR/XR KUB IMPRESSION: 1. Gaseous distention of the stomach and colon, with moderate retained fecal material in the right colon and sigmoid. 2. No abnormal small bowel dilatation. 3. Ancillary findings as detailed. Medications Administered Discontinued Medications Generic Name Dose Route Start Last Admin Trade Name Freq PRN Reason Stop Dose Admin Lidocaine 1 patch 11/02/24 11:30 11/02/24 11:35 Lidocaine 4 % Patch Adh..Patch TRANSDERMA 11/02/24 11:31 1 patch ONCE ONE Administration Protocol Discharge Plan Discharge Clinical Impression: Abdominal pain, right lateral, Hypertension Patient Disposition: Home, Self-Care Instructions: Abdominal Pain (ED) Additional Instructions: as discussed, the pain that you are describing and what worsens the pain seems to be more muscular in nature. You had blood work done today all of which was very reassuring. X-ray imaging does show that you are constipated and have stool burden on this right side of your abdomen it is possible this may be as well attributing to the pain. I have sent a prescription for a topical pain patch to apply directly to the area of pain. You may continue applying heat to the area for 10-15 minutes 4-6 times daily. Follow-up with your primary care doctor. Return to emergency department any new or worsening symptoms or concerns. your blood pressure was elevated today despite taking your blood pressure medications as you mentioned. It is important that you speak with your primary care doctor, they may need to adjust your blood pressure medication regimen. Presents emergency department with any headache, dizziness, lightheadedness, vision changes, neck pain, neck stiffness, chest pain, shortness of breath, difficulty breathing, numbness or tingling of the extremities. Prescriptions: New lidocaine 5 % adhesive patch,medicated 1 patch topical DAILY Qty: 15 0RF Rx Instructions: leave on most painful area for up to 12 hrs No Action (DME) blood-glucose meter [OneTouch Verio Meter] [facility] See Rx Instructions .ROUTE .MEDSUPPLY Qty: 1 0RF Rx Instructions: 3 times a day acarbose 50 mg tablet 75 mg PO TID 90 Days Qty: 405 1RF metformin 500 mg tablet 500 mg PO DAILY Qty: 30 3RF losartan 50 mg tablet 50 mg PO DAILY Qty: 90 4RF buprenorphine-naloxone [Suboxone] 2-0.5 mg film 1 film buccal DAILY Qty: 1 0RF Rx Instructions: place 1 strip/tab under (each) side of tongue meclizine 25 mg tablet 25 mg PO TID PRN (Reason: dizziness) Qty: 20 0RF Lantus Solostar U-100 Insulin 100 unit/mL (3 mL) insulin pen 15 unit subcut QAM 90 Days Qty: 15 1RF atorvastatin 40 mg tablet 40 mg PO DAILY omeprazole 20 mg capsule,delayed release(DR/EC) 20 mg PO BID aspirin [Adult Low Dose Aspirin] 81 mg tablet,delayed release (DR/EC) 81 mg PO DAILY (DME) OneTouch Verio test strips Strip See Rx Instructions Not Applicable QID Qty: 300 2RF Rx Instructions: 3 times a day (DME) pen needle, diabetic [BD Theresa 2nd Gen Pen Needle] 32 gauge x 5/32 needle See Rx Instructions .MEDSUPPLY Qty: 50 4RF Rx Instructions: once a day Xiidra 5 % dropperette 1 drp ophthalmic (eye) BID celecoxib [Celebrex] 200 mg capsule 200 mg PO BID 30 Days Qty: 60 3RF finasteride 5 mg tablet 5 mg PO DAILY 90 Days Qty: 90 3RF bupropion HCl 150 mg tablet sustained-release 12 hr 150 mg PO BID carvedilol 6.25 mg tablet 6.25 mg PO BID Rx Instructions: must administer with a meal/food hydrochlorothiazide 25 mg tablet 25 mg PO DAILY pioglitazone 15 mg tablet 15 mg PO DAILY hydralazine 100 mg tablet 100 mg PO TID 90 Days Qty: 270 3RF simethicone [Gas Relief (simethicone)] 125 mg capsule 125 mg PO BID-QID PRN (Reason: abdominal distention) Qty: 30 0RF Referrals: Mahad Haddad MD [Primary Care Provider] - Print Language: Kyrgyz
[2024-11-02 10:21] LABS: Lipase 15 U/L (8-78)
[2024-11-02 10:23] LABS: Alanine Aminotransferase 13 U/L (0-40); Albumin Level 3.9 g/dL (3.5-5.0); Alkaline Phosphatase 75 U/L (39-117); Anion Gap 10 (12-20); Aspartate Amino Transferase 20 U/L (5-37); Bilirubin Total 0.3 mg/dL (0.0-1.0); Blood Urea Nitrogen 14 mg/dL (9-16); Carbon Dioxide 24 mmol/L (22-29); Chloride 107 mmol/L (96-108); Creatinine Clr Calc Pharmacy 77.8; Estimated Glomerular Filt Rate > 60; Glucose Random 344 mg/dL (60-115); Magnesium 1.7 mg/dL (1.6-2.6); Potassium 4.3 mmol/L (3.3-5.1); Sodium 137 mmol/L (135-145); Total Protein 7.3 g/dL (6.5-8.0)
[2024-11-02 10:29] LABS: Troponin-I High Sensitivity < 2.7 ng/L (<3.5-35.0)
[2024-11-02 10:49] LABS: Appearance Urine Clear; Color Urine Yellow; Glucose Urine UA >=1000 mg/dL (Negative); Leukocyte Esterase Urine Negative (Negative); Nitrite Urine Negative (Negative); PH 5.5 (5.0-9.0); Specific Gravity - Urine >= 1.030 (1.005-1.025); UMIC TRIGGER UACC YES; Urine Blood Negative (Negative); Urine Ketones Negative (Negative); Urine Protein Negative (Neg-Trace)
[2024-11-02 10:52] LABS: Bacteria Urine None Seen (None Seen); Hyaline Casts Urine 0-2 /LPF (0-2); RBC Urine 0-2 /HPF (0-2); Squamous Epithelial Cell Urine 0-2 /HPF (0-2); WBC Urine 0-5 /HPF (0-5)
[2024-11-02] MEDS: Lidocaine 4 % Patch ADH..PATCH 1 PATCH TRANSDERMA (11:35)
[2024-11-02 12:02] VITALS: BP 190/110
--- NOTE | 2024-11-02 12:07 | PC.NURSE ---
Discharge delayed d/t pt's elevated BP. Gaviota Feliciano made aware, manual recheck better, will d/c w/ F/U w/ PCP re elevated BP.
[2024-11-02 12:24] VITALS: BP 190/110; PULSE 73; RESP 16; TEMP 36.7; O2SAT 97
== END 2024-11-02 12:26 | disposition home or self-care (01) ==
PROVIDERS: Nurse Practitioner Family; Emergency Provider Emergency Medicine; PCP Internal Medicine
DX: R10.31 Right lower quadrant pain (principal); I10 Essential (primary) hypertension; E11.9 Type 2 diabetes mellitus without complications; F11.20 Opioid dependence, uncomplicated; Z79.82 Long term (current) use of aspirin; Z79.02 Long term (current) use of antithrombotics/antiplatelets; Z79.4 Long term (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; Z79.84 Long term (current) use of oral hypoglycemic drugs
CPT/HCPCS: 36415; 71046; 74018; 80053; 81001; 83690; 83735; 84484; 85025; 93005; 99283; 99285

== ENCOUNTER → 2024-11-02 09:36 | Outpatient (BNV) | payer MEDICARE, SELFPAY | PROVIDERS: Emergency Provider Emergency Medicine; PCP Internal Medicine; Visit Provider Internal Medicine Cardiovascular Disease | DX: R94.31 Abnormal electrocardiogram [ECG] [EKG] (principal); R10.9 Unspecified abdominal pain | CPT/HCPCS: 93010 ==

== ENCOUNTER → 2024-11-02 10:27 | Outpatient (BNV) | payer MEDICARE, SELFPAY | PROVIDERS: Emergency Provider Emergency Medicine; PCP Internal Medicine; Visit Provider Radiology Diagnostic Radiology | DX: R07.81 Pleurodynia (principal); R10.9 Unspecified abdominal pain | CPT/HCPCS: 71046; 74018 ==

== ENCOUNTER 2024-11-05 08:48 | Day surgery (SDC) | payer OTHER, SELFPAY ==
[2024-11-01 10:25] VITALS: BMI 34.5
--- NOTE | 2024-11-01 14:05 | HO.ANESPROP2 ---
Documented by User: Roxana Agosto NP 11/01/24 14:06 HPI - Anesthesia Eval Consult details Narrative: 74yo M for Cystoscopy, Transurethral Incision Prost with Bipolar Button Nerve stim in situ Suboxone daily [place] [facility] [place]. Last office visit 04/2023. Chest pain likely musculoskeletal. Stable for 1 [facility] Active Problems Active Problems: All Active Problems Spondylosis of lumbar region without myelopathy or radiculopathy (Acute) Posterior right knee pain (Acute) Posterior left knee pain (Acute) Partial small bowel obstruction (Acute) Gas pain (Acute) Urinary hesitancy (Acute) Abnormal EKG (Acute) Asymmetric septal hypertrophy (Acute) Osteoarthritis of hip (Acute) Osteoarthritis of both knees (Acute) Osteoarthritis of hands, bilateral (Acute) Osteoarthritis of lumbar spine (Acute) Other and unspecified hyperlipidemia (Acute) Type 2 diabetes mellitus with unspecified complications (Acute) Essential hypertension (Acute) Precordial chest pain (Acute) Right inguinal hernia (Acute) BPH w urinary obs/LUTS (Acute) Right groin pain (Acute) Right inguinal hernia (Acute) DM2 (diabetes mellitus, type 2) (Acute) Disc degeneration, lumbar (Acute) Chronic pain syndrome (Acute) Spondylosis of lumbosacral spine with radiculopathy (Acute) GERD (gastroesophageal reflux disease) (Acute) Obesity (BMI 30-39.9) (Acute) Hypertension (Acute) 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 associated with type 2 diabetes mellitus (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 (Acute) Past Medical History Medical History Right groin pain Right inguinal hernia On beta lala at home Hx SBO DM2 (diabetes mellitus, type 2) Disc degeneration, lumbar Chronic pain syndrome Spondylosis of lumbosacral spine with radiculopathy GERD (gastroesophageal reflux disease) Obesity (BMI 30-39.9) Hypertension 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 associated with type 2 diabetes mellitus halfway (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 Family History Family History Father Unknown family medical history Mother Unknown family medical history Family history of problems with anesthesia: No Surgical History Surgical History Hx of inguinal hernia repair S/P placement of nerve stimulator Hx of surgical procedure Hx of cystoscopy Hx of lithotripsy Hx of right hemicolectomy Hx of colonoscopy (09/14/24) Hx of esophagogastroduodenoscopy History of Problems with Anesthesia: No Social History Social History Are you a primary foster care worker to a significant other at home: No Do you presently have visiting nurse or other home services: No Alcohol intake: never Patient Tobacco Use Status: Never used Tobacco Second Hand Smoke Exposure: No Use of substances other than those prescribed or required for medical reasons: No Have you been hit, kicked, punched, or otherwise hurt by someone within the past year? 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 Allergies Allergy/AdvReac Type Severity Reaction Status Date / Time No Known Allergies Allergy Verified 11/05/24 09:16 Home Medications ?Medication ?Instructions ?Recorded ?Confirmed ?Last Taken ?Type aspirin 81 mg tablet,delayed 81 mg PO DAILY 08/12/20 11/05/24 10/29/24 History release (Adult Low Dose Aspirin) atorvastatin 40 mg tablet 40 mg PO DAILY 08/12/20 09/14/24 07/29/23 History omeprazole 20 mg capsule,delayed 20 mg PO BID heartburn 08/12/20 11/05/24 11/05/24 History release lifitegrast 5 % eye drops in a 1 drp ophthalmic (eye) BID 12/23/22 09/14/24 07/08/23 05:00 History dropperette (Xiidra) bupropion HCl 150 mg tablet,12 hr 150 mg PO BID 01/18/24 09/14/24 Unknown History sustained-release carvedilol 6.25 mg tablet 6.25 mg PO BID 01/18/24 09/14/24 Unknown History hydrochlorothiazide 25 mg tablet 25 mg PO DAILY 01/18/24 09/14/24 Unknown History pioglitazone 15 mg tablet 15 mg PO DAILY 01/18/24 09/14/24 Unknown History Exam Height,Weight and Vital Signs: Height 5 ft 7 in Weight 99.79 kg Pertinent Lab Results Pertinent Lab Results: Laboratory Tests 01/30/24 10/17/24 13:52 13:58 WBC 7.4 Hgb 11.8 L Hct 35.0 L Plt Count 232 Sodium 138 Potassium 4.1 Chloride 104 Carbon Dioxide 27 BUN 12 Creatinine 0.84 Narrative Narrative: EKG 2023 Vent. Rate : 064 BPM Atrial Rate : 064 BPM P-R Int : 148 ms QRS Dur : 082 ms QT Int : 416 ms P-R-T Axes : 000 -04 -16 degrees QTc Int : 429 ms Normal sinus rhythm Nonspecific ST and T wave abnormality Abnormal ECG When compared with ECG of 18-APR-2023 07:38, No significant change was found Assessment and Plan Assessment Anesthesia Assessment: Chart Reviewed Final Anesthetic Review Family History of Problems with Anesthesia: No History of Problems with Anesthesia: No Documented by User: Gaetano Thomas MD 11/05/24 10:28 [facility] Past Medical History Medical History Right groin pain Right inguinal hernia On beta lala at home Hx SBO DM2 (diabetes mellitus, type 2) Disc degeneration, lumbar Chronic pain syndrome Spondylosis of lumbosacral spine with radiculopathy GERD (gastroesophageal reflux disease) Obesity (BMI 30-39.9) Hypertension 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 associated with type 2 diabetes mellitus halfway (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 Family History Family History Father Unknown family medical history Mother Unknown family medical history Surgical History Surgical History Hx of inguinal hernia repair S/P placement of nerve stimulator Hx of surgical procedure Hx of cystoscopy Hx of lithotripsy Hx of right hemicolectomy Hx of colonoscopy (09/14/24) Hx of esophagogastroduodenoscopy Social History Social History Are you a primary foster care worker to a significant other at home: No Do you presently have visiting nurse or other home services: No Alcohol intake: never Patient Tobacco Use Status: Never used Tobacco Second Hand Smoke Exposure: No Use of substances other than those prescribed or required for medical reasons: No Have you been hit, kicked, punched, or otherwise hurt by someone within the past year? 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 Allergies Allergy/AdvReac Type Severity Reaction Status Date / Time No Known Allergies Allergy Verified 11/05/24 09:16 Home Medications ?Medication ?Instructions ?Recorded ?Confirmed ?Last Taken ?Type aspirin 81 mg tablet,delayed 81 mg PO DAILY 08/12/20 11/05/24 10/29/24 History release (Adult Low Dose Aspirin) atorvastatin 40 mg tablet 40 mg PO DAILY 08/12/20 09/14/24 07/29/23 History omeprazole 20 mg capsule,delayed 20 mg PO BID heartburn 08/12/20 11/05/24 11/05/24 History release lifitegrast 5 % eye drops in a 1 drp ophthalmic (eye) BID 12/23/22 09/14/24 07/08/23 05:00 History dropperette (Xiidra) bupropion HCl 150 mg tablet,12 hr 150 mg PO BID 01/18/24 09/14/24 Unknown History sustained-release carvedilol 6.25 mg tablet 6.25 mg PO BID 01/18/24 09/14/24 Unknown History hydrochlorothiazide 25 mg tablet 25 mg PO DAILY 01/18/24 09/14/24 Unknown History pioglitazone 15 mg tablet 15 mg PO DAILY 01/18/24 09/14/24 Unknown History Exam Airway Mallampati Class: II TM Dist: <=3cm Neck ROM: Full Loose/Missing/Broken Teeth: No Heart: ok Lungs: ok Assessment and Plan Assessment Anesthesia Assessment: Anesthesia Plan Discussed Final Anesthetic Review NPO: Yes ASA Class: III Final Preanesthetic Review: No Changes in Pt Med Stat, Meds/Allgs Chart Reviewed, Consent Obtained/Reviewed and Anes Risks/Benef Reviewed Patient Risk: Intermediate Procedure Risk: Low Anesthetic Plan Anesthetic Plan: GA and Agree w/ Assess. and Plan Disposition: Standard PACU
[2024-11-05] VITALS (7 sets, daily range): BP systolic 118–199; BP diastolic 71–93; PULSE 62–89; RESP 18; TEMP 36.7–37.4; O2SAT 92–98; BMI 33.8
[2024-11-05] MEDS: Lactated Ringers 1,000 ML 100 ML IVCONT (09:30)
[2024-11-05 09:47] LABS: Glucose, Whole Blood 176 mg/dL (60-115)
--- NOTE | 2024-11-05 10:07 | MHC.SHP ---
Pre-Procedural Eval Section A - 24 Hr Update-Section A only Date of Service: 11/05/24 The patient is an INPATIENT: No Changes since office visit: No Cold of Flu in the past 2 weeks, No New Medical Problems, No Changes in Medication and No Patient answered all questions The patient has been examined within 24 hours of the surgical procedure. The History & Physical has been completed within 30 days and I have reviewed it.: No Section B - Complete if H&P > 30 days Chief Complaint: Bladder-neck obstruction Details of Present Illness: Bladder and obstruction. Plan for prostate plasma button resection Relevant Family History (Specify if Yes): No Relevant Social History: None Present Medications: see Short Stay Collaborative assessment Allergies: Allergies Allergy/AdvReac Type Severity Reaction Status Date / Time No Known Allergies Allergy Verified 11/05/24 09:16 Review of Systems Sugical H&P ROS: Negative: Constitution, Cardiovascular, Respiratory, Neurological, Psychiatric, Hem-Onc, Allergic/Immunologic, Gastrointestinal, Genitourinary, Musculoskeletal, Integumentary, Endocrine and Eyes/Ears/Nose/Throat Exam Surgical H&P Exam: Normal: HEENT, Normal: Heart, Normal: Lungs, Normal: Extremities, Normal: Abdomen, Normal: Skin and Normal: Neurological Plan Diagnosis/Plan: Unchanged (Bladder outlet obstruction - prostate incision with plasma button) I have reviewed the history and physical and performed a pertinent physical examination on my patient. No changes have occurred unless specified. Time Spent With Patient Time: Total time managing care of this patient today ____ minutes.
[2024-11-05] MEDS: levoFLOXacin/D5W 500 MG/100 ML PIGGYBACK 100 MG IV (10:30)
--- NOTE | 2024-11-05 11:02 | W.PM.OPN ---
Operative Note Operative Note Date of Service: 11/05/24 Narrative: PreOperative Diagnosis: Bladder outlet obstruction Post Operative Diagnosis: Bladder outlet obstruction Procedure: CPT 05680 - Transurethral electrosurgical prostate resection Surgeon: Dr Rafita Garland Anesthesia: General History of bladder outlet obstruction. Treated with alpha-lala and other medications. Still with symptoms. On cystoscopy in office has tight bladder neck. Recommendation for prostate procedure with plasma button Transurethral electrosurgical prostate resection. Size of prostate less than 40 cc. Risks and benefits have been discussed. Focus was placed on development of retrograde ejaculation which is a normal part of this procedure. Procedure: After informed consent was verified the patient was brought to the operating room and placed in a supine position. Anesthesia was administered per protocol. Patient was placed in modified dorsal lithotomy position and prepped and draped in a sterile fashion. Safety pause time-out was confirmed. Antibiotics have been given. A Twenty-four Cypriot cystoscope with visual obturator was inserted per urethra. No abnormalities were found of the anterior and bulbar urethra. The prostatic urethra shows tight bladder neck. The bladder was examined and both ureteric orifices were seen in their normal positions away from the area of interest. Bladder trabeculation Grade 1. The visual obturator was removed and replaced with a plasma button resection loop. Using the plasma button incisions were made at the 5 and 7 o'clock position. The initial incision was made at the 7 o'clock position starting level with the bladder neck and in line with ureteric orifice on that side. The groove was extended distally to the area just proximal of the veru. This groove was deepened with multiple passes to define the lateral aspects of the median lobe area. The proximal portion of the groove was extended through the bladder neck and remained in line with the ureteric orifice on each side. The goal was to reveal prostate strands from trhe surgical capsule. Once clearly defined the groove was extended in the lateral direction. The 05:00 o'clock position groove was then created in a similar fashion. The intervening median lobe was then resected and enucleated tissue released into the bladder. The deep boundary of resection was defined by the prostate surgical capsule. In this case due to the smaller prostate size a decision was made not to proceed with further resection of the lateral lobes. At completion debris and pieces of prostate were removed from the bladder with irrigation. Both ureteric orifices were reviewed again in shown to be patent in away from any areas of energy damage. The apical area was reviewed and any stray mucosal ooze was controlled. A 22 Cypriot 30 cc balloon Foster catheter was placed into the bladder using a flexible stylet. Clear efflux was obtained upon irrigation with a Sunday piston syringe. 30 cc was placed in the balloon and gentle traction was placed. A snap was used to hold tension on the catheter to control bleeding during patient moved and transported. A drainage bag was placed. Once transportation is complete to the PACU the snap will be removed. The patient tolerated the procedure well, he was extubated in the operating and transferred in a stable condition to the recovery area. Pathology: Prostate tissue Drains: Foster catheter
== END 2024-11-05 12:38 | disposition home or self-care (01) ==
PROVIDERS: PCP Internal Medicine; Visit Provider Urology
PROC: (CPT 52601; principal; 2024-11-05 11:50)
DX: N40.1 Benign prostatic hyperplasia with lower urinary tract symptoms (principal); N13.8 Other obstructive and reflux uropathy; R39.11 Hesitancy of micturition; R35.1 Nocturia; N32.89 Other specified disorders of bladder; G89.4 Chronic pain syndrome; E66.9 Obesity, unspecified; I10 Essential (primary) hypertension; K21.9 Gastro-esophageal reflux disease without esophagitis; M47.27 Other spondylosis with radiculopathy, lumbosacral region; E11.42 Type 2 diabetes mellitus with diabetic polyneuropathy; Z79.4 Long term (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; Z96.82 Presence of neurostimulator; Z79.899 Other long term (current) drug therapy; Z79.82 Long term (current) use of aspirin; Z87.442 Personal history of urinary calculi; Z90.49 Acquired absence of other specified parts of digestive tract; Z98.890 Other specified postprocedural states
CPT/HCPCS: 52601; 82947; 88305; J1956; J2003; J2704; J3010

== ENCOUNTER → 2024-11-05 08:48 | Outpatient (BNV) | payer OTHER, SELFPAY | PROVIDERS: PCP Internal Medicine; Visit Provider Urology | DX: N32.0 Bladder-neck obstruction (principal) | CPT/HCPCS: 52601 ==

== ENCOUNTER 2024-11-09 13:34 | Outpatient (AMB) | payer OTHER, SELFPAY ==
--- NOTE | 2024-11-09 13:34 | MHC.OFFVIS ---
Intake Visit Reasons: Followup Intake Note: Patient is present via telehealth for a follow up Urology Medication:FINASTERIDE Antibiotic Allergy:NONE Blood Thinner:ASPIRIN(not taking) Rural Route Mail Carrier Required: Yes Allergies No Known Allergies Allergy (Verified 11/09/24 13:36) HPI Comments Details: Isaac is a pleasant male. He is seen for the following urologic condition. - lower urinary tract symptoms Telemedicine Evaluation 15 min Consultation [employer] Rose Mary Video Doing well Improved voiding We will try to come off Flomax Remain on finasteride till next visit in six-month Surinamese translation provided by his son All questions asked Lower urinary tract symptoms Plasma Button TURP limited - 10/30 Longstanding lower urinary tract symptoms Good response to combination therapy Current therapy Flomax 0.8 mg. Finasteride Persistent nocturia 2-3 times at night Cystoscopy large trilobar hypertrophy 2019 PSA 01/25 3.25, 01/26 3.0, 11/27 1.3, 01/27 1.3, 01/28 0.6 PFSH Medical History Right groin pain Right inguinal hernia On beta lala at home Hx SBO DM2 (diabetes mellitus, type 2) Disc degeneration, lumbar Chronic pain syndrome Spondylosis of lumbosacral spine with radiculopathy GERD (gastroesophageal reflux disease) Obesity (BMI 30-39.9) Hypertension 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 associated with type 2 diabetes mellitus terminal carman (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 Surgical History Hx of inguinal hernia repair S/P placement of nerve stimulator Hx of surgical procedure Hx of cystoscopy Hx of lithotripsy Hx of right hemicolectomy Hx of colonoscopy (09/14/24) Hx of esophagogastroduodenoscopy Family History Father Unknown family medical history Mother Unknown family medical history Social History Are you a primary healthcare applications analyst to a significant other at home: No Do you presently have visiting nurse or other home services: No Alcohol intake: never Patient Tobacco Use Status: Never used Tobacco Second Hand Smoke Exposure: No Advance Directives Date on File: 09/08/14 Current occupational status: disabled 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/ Review of Systems Const All systems reviewed & are unremarkable except as noted in HPI and below Reports no additional complaints Resp Reports no additional complaints GI Reports no additional complaints Reports as per HPI Musc Reports no additional complaints Physical Exam Telemedicine evaluation Appropriate responses Regular breathing rate and rhythm HEENT Head: Yes normal to inspection Ears: hearing grossly normal bilaterally Eyes General: appearance normal, both eyes and all related structures Neck Neck: Yes normal visual inspection Chest Chest palpation & inspection: normal inspection of the chest Resp Effort & Inspection: normal respiratory effort and able to speak in complete sentences Telehealth Telehealth Telehealth Platform: [employer] Location of provider rendering services: practice address Location of patient: address on file Patient Identification confirmed using: Name, : Yes Telehealth method: video Patient verbally consented to treatment: Yes Patient verbally consented to billing insurance company: Yes Patient informed of any privacy concerns related to visit: Yes Minutes spent on Phone/Video with Pt.: 15 Assessment & Plan Assessment & Plan (1) BPH w urinary obs/LUTS: Code(s): N40.1 - Benign prostatic hyperplasia with lower urinary tract symptoms; N13.8 - Other obstructive and reflux uropathy Category: Medical (2) Urinary hesitancy: Code(s): R39.11 - Hesitancy of micturition Category: Medical Plan Six-month follow-up Patient Instructions: This note is constructed using voice recognition software. While every effort has been made to ensure accuracy stitcher set up operator automatic errors may have been included. Imaging studies, laboratory and physical exam results were discussed and reviewed in detail. No major barriers to patient understanding were identified. An opportunity to ask questions regarding the treatment plan was provided. All questions were answered. The patient expressed understanding and agreement with the above treatment plan. The patient is aware they should contact our office by phone for worsening of their current condition or the appearance of new urologic symptoms. Compliance is encouraged with any medications and followup testing that is ordered. It is a privilege to participate in the urologic care of your patient. If you have any questions or concerns regarding treatment for the above conditions, or other urologic issues, please do not hesitate to contact me. The office telephone contact is [phone]. Sincerely, Dr Rafita Garland MD, [facility] - Urology Compassionate Specialist Care for the Genitourinary System Coding Level of Care Code Tele Est Pt Level 3 (87003) Diagnoses BPH w urinary obs/LUTS N40.1; N13.8 Urinary hesitancy R39.11
--- OUTSIDE RECORDS SUMMARY | 2024-11-09 15:22 | XMS_ITS | Clinical Summary ---
Author Organization [facility] Address [address] [place] [address] Phone Care Team Providers Care Mosaic Tile Maker Name Role Phone Mahad Haddad MD Primary [...] patient's age to complete this topic Insurance [facility] MEDICARE [facility] MEDICARE Care Teams Mosaic Tile Maker Relationship Specialty Start Date End Date Mahad Haddad MD [address] [place] [address] [id number] [place], [place] PCP - General 08/18/20
--- OUTSIDE RECORDS SUMMARY | 2024-11-09 15:22 | XMS_ITS ---
Author Organization [facility] Address [address] [place] [address] Care Team Providers Care Director Of Database Marketing Name Role Phone Boo SIMS, Mahad Primary Care Provider Juancarlos Cohen [phone] REASON FOR VISIT 2 day prep, colon screening Problems Problem Type SNOMED Code ICD Code Onset Dates Problem Status W/U Status Risk Notes Problem History of gastrointestinal tract bypass (992552889) Intestinal bypass and anastomosis status (Z98.0) Active confirmed Problem Diverticular disease of colon (102013646) Diverticulosis of large intestine without perforation or abscess without bleeding (K57.30) Active confirmed Encounters Encounter Location Date Provider Diagnosis [facility] Outpatient [address] [place], [place] [phone] 09/14/2024 Juancarlos Sher Colon cancer scree geeta [...] Notes * RACHAEL AGUSTINDOB: (74 yo M)Acc No.[id number]:09/14/2024 COLON WITH MAC Patient:?ELIZABETH AGUSTIN Provider:?Juancarlos Sher MD :1950???Age:74 Y???Sex:Male Alfie e:09/14/2024 Address: [address], [facility] Pcp:Mahad Haddad MD Subjective: * Chief Complaints: [...] - K64.8??? Plan: * Treatment: * Procedure Codes:?82623 LESIO N REMOVAL COLONOSCOPY, Modifiers: PT , [...] MD Date:? 025 Generated for Xena purdy/Adina/eTransmitting on:?11/09/2024 03:22 PM EDT
--- OUTSIDE RECORDS SUMMARY | 2024-11-09 15:22 | XMS_ITS | Patient Health Record ---
Author Organization [facility] Address [address] [place] [address] Care Team Providers Care Net Mobile Developer Name Role Phone Boo SIMS, Mahad Primary Care Provider Juancarlos Cohen Unavailable [phone] Allergies No Known Allergies Results Component Value Reference Range Notes Glucose, Whole Blood Reviewed date:09/14/2024 02:25:32 PM Interpretation: Performing Lab:[facility], [address] [place] [phone] Notes/Report: Glucose, Whole Blood 138 60-115 mg/dL METER # : [id number] Pathology (Not yet reviewed by provider) Interpretation: Performing Lab:[facility], [address] [place] [phone] Notes/Report: ---- Name: Rachael Agustin Age/Sex: 74/M : 1950 Unit#: [id number] Attend Dr: Juancarlos Sher MD Re09/14/24 Status : [facility] Location: [facility] Disch: ---- SPEC : [id number] RECD: 09/14/24 STATUS: TANI KAUFMAN NUM: [id number] [place]: 09/14/[address] [facility] [address]: Juancarlos Sher MD ENTERED: 09/14/24-10 [...] Rachael Agustin Age/Sex: 74/M : 1950 Unit#: [id number] Attend Dr: Juancarlos Sher MD Re09/14/24 Status : [facility] Location: [facility] Disch: ---- SPEC : [id number] RECD: 09/14/24 STATUS: TANI KAUFMAN NUM: [id number] [place]: 09/14/[address] [facility] [address]: Juancarlos Sher MD ENTERED: 09/14/24- [...] microscopic examination, 4 pieces in cassette C2. [facility] Copies To: Mahad Haddad MD [facility] [address] [place] [address] Juancarlos Sher MD [facility] [address] [place], [place] [phone] ---- Signed (signature on file) Leora Krebs [...] 20 MG TAKE 1 CAPSULE BY [facility] TWICE A DAY FOR HEARBURN 90 for [...] Problem Status W/U Status Risk Notes Problem 886491636 Encounter for screening for malignant neoplasm of colon (Z12.11) Active confirmed Problem 842263126 History of adenomatous polyp of colon (Z86.010) Active confirmed Problem Abdominal bloating (909375497) Abdominal bloating (R14.0) Active confirmed Problem Diverticular disease of colon (189328945) Diverticulosis of large intestine without perforation or abscess without bleeding (K57.30) Active confirmed Problem History of malignant neoplasm of colon (362058368) Personal history of other malignant neoplasm of large intestine (Z85.038) Active confirmed Problem History of gastrointestinal tract bypass (451195038) Intestinal bypass and anastomosis status (Z98.0) Active confirmed Problem 283300152 Gastroesophageal reflux disease with esophagitis (K21.0) Active confirmed Problem 565956895 History of colon cancer (Z85.038) Active confirmed Problem Diverticulosis of colon (202532463) Diverticulosis of colon (K57.30) Active confirmed Problem 230887124 Gastroesophageal reflux disease with esophagitis without hemorrhage (K21.00) Active confirmed Vital Signs Temperature 97.5 degrees Fahrenheit 01/24/2024 Blood pressure diastolic 00 mm Hg 01/24/2024 Height 68.35 in 01/24/2024 Blood pressure systolic 000 mm Hg 01/24/2024 Weight 212 lb 6 oz lbs 01/24/2024 BMI 31.96 kg/m2 01/24/2024 Encounters Encounter Location Date Provider Diagnosis [facility] Outpatient [address] [place] [phone] 09/14/2024 Juancarlos Sher Colon cancer screeni ng Z12.11 ; Colon polyps K63.5 ; Personal history of other malignant neoplasm of large intestine Z85.038 ; Intestinal bypass and anastomosis status Z98.0 ; Diverticulosis of large intestine without perforation or abscess without bleeding K57.30 and Other hemorrhoids K64.8 [facility] [address] [place] [address] 01/24/2024 Juancarlos Sher History of colon can cer Z85.038 ; Abdominal bloating R14.0 ; History of adenomatous polyp of colon Z86.010 ; Encounter for screening for malignant neoplasm of colon Z12.11 ; Gastroesophageal reflux disease with esophagitis without hemorrhage K21.00 and Personal history of other malignant neoplasm of large intestine Z85.038 [facility] [address] [place] [address] 01/26/2024 Juancarlos Sher [facility] [address] [place] [address] 05/10/2024 Juancarlos Sher Assessments Encounter Date Diagnosis [...] I also recommended that he try some avpg-ils-lnwh ter simethicone products regularly. I shall give [...] I also recommended that he try some jpio-usg-rhjg ter simethicone products regularly. I shall give [...] symptoms of an obstruction that would require Rachale to go to the ER such as [...] I also recommended that he try some otys-kno-jkrs ter simethicone products regularly. I shall give [...] I also recommended that he try some yrrt-qzf-iacl ter simethicone products regularly. I shall give [...] I also recommended that he try some disr-rll-zyjn ter simethicone products regularly. I shall give [...] I also recommended that he try some yfpa-gzs-kpma ter simethicone products regularly. I shall give [...] Insured Coverage Start Date Coverage End Date [facility] [address] [address] [place] [id number] RAULRACHAEL HUANG Self - patient is the [...] in 2006 Internal hemorrhoids IDDM HTN Denies TX,CVA,Lung disease,renal disease EGD in 04/2011 with erosive esophagitis a nd HH-no Linn's esophagus Hyperlipidemia Colonoscopy in 05/2018 with removal of a tubular adenoma SBO in 02/2020 treated with NG tube--no s urgery Kidney stones Colonoscopy May 2021 Romero ited prep and one small polyp removed but not recovered for pathology Surgical History Surgery Date(Month/Year) Right colectomy for colon cancer as per [facility] Right inguinal hernia 2022-Dr. Schulz Stimulator put in back
--- OUTSIDE RECORDS SUMMARY | 2024-11-09 15:22 | XMS_ITS ---
Author Organization Mahad Haddad MD Address [address] [place] [phone] Care Team Providers Care Director Transportation Name Role Phone Mahad Haddad Primary Care Provider [phone] REASON FOR VISIT ER Encounters Encounter Location Date Provider Diagnosis Mahad Haddad MD [address] [place], [place] [phone] 11/02/2024 Mahad Haddad Plan Of Treatment Next Appt Details Provider Name:Mahad de la paz, 02/26/2025 07:45:00 AM, [address], [address], [place], [phone], Provider Name:Mahad Jang ana cristina, 03/05/2025 09:30:00 AM, [address] [facility], [address], [place], [phone], Provider Name:Mahad Jang ana cristina, 10/03/2025 11:00:00 AM, [address] [place] [address], [address], [place], [phone], Progress Notes * RAULELIZABETH BAEZDIANEDOB:[birth year] (74 yo M)Acc No.[id number]:11/02/2024 Patient:?RACHAEL CARTER :1950???Age:74 Y???Sex:Male Address: [address], [place], [address] * * Date:?
--- OUTSIDE RECORDS SUMMARY | 2024-11-09 15:23 | XMS_ITS ---
Author Organization [facility] Address [address] [place] [address] Care Team Providers Care Engineering Scientist Name Role Phone Boo SIMS, Mahad Primary Care Provider Juancarlos Cohen [phone] Encounters Encounter Location Date Provider Diagnosis [facility] [address] [place] [address] 05/10/2024 Juancarlos Sher Plan Of Treatment No Information Progress Notes * RACHAEL AGUSTINDOB: (73 yo M)Acc No.[id number]:05/10/2024 Patient:?RAUL ELIZABETH HEALY :1950???Age:73 Y???Sex:Male Address:[address] [place] [address] * true * Date:? Generated for Xena purdy/Adina/eTransmitting on:?11/09/2024 03:23 PM EDT
--- OUTSIDE RECORDS SUMMARY | 2024-11-09 15:23 | XMS_ITS ---
Author Organization Mahad Haddad MD Address [address] [place] [phone] Care Team Providers Care Baggage Handler Name Role Phone Mahad Haddad Primary Care Provider [phone] Allergies No Known Allergies Results Component Value Reference Range Notes Glucose, finger stick Reviewed date:09/28/2024 10:01:27 AM Interpretation: Performing Lab: Notes/Report: Value 210 REASON FOR VISIT 6 months DM, AWV, Accompanied by son Medications Medication SIG (Take, Route, Frequency, Duration) Notes Start Date End Date Status OneTouch Ultra - as directed In Vitro 3 times a day for 30 days 08/29/2023 Active Pen Marshall 33G X 4 MM as directed sq [...] Location Date Provider Diagnosis Mahad Haddad MD [address] [place] [phone] 09/28/2024 Mahad Haddad Type 2 diabetes mellitus [...] Name:Mahad de la paz, 02/26/2025 07:45:00 AM, [address] [place] [address], [address], [phone], Provider Name:Mahad de la paz, 03/05/2025 09:30:00 AM, [address] [place] [address], [address], [phone], Provider Name:Mahad de la paz, 10/03/2025 11:00:00 AM, [address] [place] [address], [address], [phone], Progress Notes * CHARLY CARTER:[birth year] (74 yo M)Acc No.[id number]:09/28/2024 Progress Note Patient:?RACHAEL CARTER Provider:?Mahad Haddad MD :1950???Age:74 Y???Sex:Male Alfie e:09/28/2024 Address: [address], [id number] Subjective: * Chief Complaints: * ???6 months DM, AWVAccompani ed by son * HPI: ???Annual Wellness Visit:?74 year old male presents with c/o of?Annual Wellness Visit , Annual Wellness Visit.?Medical / Social History Reviewed?The following items were reviewed and updated during today's visit?Past Medical History, [place] of Care, Surgical/Hospitalization History, Current medications including [...] 1 tablet Orally Once a day Pen Marshall 33G X 4 MM Miscellaneous as directed [...] tablet Orally Once a day Taking Pen Marshall 33G X 4 MM Miscellaneous as directed [...] day, 90days, 90, Refills 3.?? * Procedure Codes:?99410 ASSAY , GLUCOSE, BLOOD QUANT, Modifiers: QW [...] MD Date:?0 09/28/2024 Generated for Xena purdy/Adina/eTransmitting on:?11/09/2024 03:22 PM EDT History and Physical Notes * [...] all Thoughts that you would be b fracnes off or of hurting yourself in some [...] updated during today's visit: Past Medical History, [place] of Care, Surgical/Hospitalization History, Current medications including [...]
--- OUTSIDE RECORDS SUMMARY | 2024-11-09 15:23 | XMS_ITS ---
Author Organization [facility] Address [address] [place] [address] Care Team Providers Care Caustic Mixer Name Role Phone Boo SIMS, Mahad Primary Care Provider Juancarlos Cohen [phone] REASON FOR VISIT please lock office visit note Encounters Encounter Location Date Provider Diagnosis [facility] [address] [place] [phone] 01/26/2024 Juancarlos Sher Plan Of Treatment No Information Progress Notes * RACHAEL AGUSTINDOB: (73 yo M)Acc No.[id number]:01/26/2024 Patient:?ELIZABETH AGUSTIN :1950???Age:73 Y???Sex:Male Address:[address] [place] [address] * true * Date:? Generated for Printi ng/Faaprilg/eTransmitting on:?11/09/2024 03:23 PM EDT
--- OUTSIDE RECORDS SUMMARY | 2024-11-09 15:23 | XMS_ITS ---
Author Organization Mahad Haddad MD Address [address] [place] [phone] Care Team Providers Care Manager Interface Name Role Phone Mahad Haddad Primary Care Provider [phone] REASON FOR VISIT last note Encounters Encounter Location Date Provider Diagnosis Mahad Haddad MD [address] [place] [phone] 09/28/2024 Mahad Haddad Plan Of Treatment Next Appt Details Provider Name:Mahad Jang iesandra, 02/26/2025 07:45:00 AM, [address] [facility], [address], [place], [phone], Provider Name:Mahad Jang ana cristina, 03/05/2025 09:30:00 AM, [address] [facility], [address], [place], [phone], Provider Name:Mahad Jang ier, 10/03/2025 11:00:00 AM, [address] [facility], [address], [place], [phone], Progress Notes * RACHAEL CARTERDOB:[birth year] (74 yo M)Acc No.[id number]:09/28/2024 Patient:?RACHAEL CARTER :1950???Age:74 Y???Sex:Male Address: [address], [place], [address] * true * Date:? Generated for Xena purdy/Adina/eTransmitting on:?11/09/2024 03:22 PM EDT
== END 2024-11-09 14:24 | disposition home or self-care (01) ==
LOC: HO.HUSH 13:34
PROVIDERS: PCP Internal Medicine; Visit Provider Urology
DX: N40.1 Benign prostatic hyperplasia with lower urinary tract symptoms (principal); N13.8 Other obstructive and reflux uropathy; R39.11 Hesitancy of micturition
CPT/HCPCS: 99024

== ENCOUNTER 2024-11-21 12:40 | Outpatient (AMB) | payer OTHER, SELFPAY ==
[2024-11-21 12:59] VITALS: BP 160/80; PULSE 78; BMI 33.8
--- NOTE | 2024-11-21 12:59 | MHC.OFFVIS ---
Vital Signs 11/21/24 12:59 Height 5 ft 7 in Weight 216 lb 0.848 oz BMI 33.8 BP 160/80 H Blood Pressure Location Lt brachial Position Sitting Pulse 78 Pulse Source Pulse Oximeter Intake Visit Reasons: per pcp follow-up ? fluid retention in abdomen Concrete Finisher Apprentice Required: Yes Concrete Finisher Apprentice Services: Concrete Finisher Apprentice Offered & Declined Accompanied by: Spouse Allergies No Known Allergies Allergy (Verified 11/09/24 13:36) Medication List - Last Reconciled 11/21/24 by Jonnahtan Fong MD aspirin 81 mg PO DAILY atorvastatin 40 mg PO DAILY buprenorphine-naloxone 2-0.5 mg (Suboxone) 1 film buccal DAILY carvedilol 6.25 mg PO BID finasteride 5 mg PO DAILY 90 days hydralazine 100 mg PO TID 90 days hydrochlorothiazide 25 mg PO DAILY insulin glargine (Lantus Solostar U-100 Insulin) 15 units (0.15 mL) subcut QAM 90 days losartan 50 mg PO DAILY meclizine 25 mg PO TID PRN metformin 500 mg PO DAILY omeprazole 20 mg PO BID OneTouch Verio Meter (blood-glucose meter) 3 times a day NS OneTouch Verio test strips (blood sugar diagnostic) 3 times a day NS pen needle, diabetic (BD Theresa 2nd Gen Pen Needle) once a day HPI Comments Details: Patient has been referred for evaluation of distended abdomen. He has got no angina. Whenever he feels too distended, he may feel short of breath but not otherwise. 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 Surgical History Hx of inguinal hernia repair S/P placement of nerve stimulator Hx of surgical procedure Hx of cystoscopy Hx of lithotripsy Hx of right hemicolectomy Hx of colonoscopy (09/14/24) Hx of esophagogastroduodenoscopy Family History Father Unknown family medical history Mother Unknown family medical history Social History Are you a primary summer child caregiver to a significant other at home: No Do you presently have visiting nurse or other home services: No Alcohol intake: never Patient Tobacco Use Status: Never used Tobacco Second Hand Smoke Exposure: No Advance Directives Date on File: 09/08/14 Current occupational status: disabled 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/ Review of Systems Const Denies weakness ENT Denies dizziness Card Denies chest pain, Denies chest pain with activity, Denies syncope, Denies rapid heart rate, Denies pedal edema, Denies edema, Denies leg edema, Denies lightheadedness, Denies palpitations, Reports dyspnea, Denies dyspnea on exertion and Denies orthopnea Resp Denies cough, Reports dyspnea and Denies dyspnea on exertion GI Reports bloating, Denies hematochezia and Denies change in stool character Musc Denies abnormal gait, Denies muscle cramps, Denies muscle weakness, Denies numbness, Denies radiating pain into limb and Denies tingling Neuro Denies abnormal gait, Denies dizziness, Denies syncope, Denies numbness, Denies tingling and Denies weakness Endo Denies palpitations Physical Exam Vital Signs: Last Vital Signs Pulse 78 11/21/24 12:59 BP 160/80 H 11/21/24 12:59 BMI result Body Mass Index 33.8 Const General: comfortable and no acute distress Orientation/consciousness: patient oriented x3 HEENT Other: Unremarkable Head: Yes normal to inspection Neck Neck: Yes normal visual inspection Chest Chest palpation & inspection: normal inspection of the chest Resp Auscultation: clear to auscultation bilaterally Cardio Palpation: normal PMI Heart sounds: S1 normal heart sound present, S2 normal heart sound present, no gallops, no murmurs and no rubs GI Other: Distended abdomen Palpation (GI): Soft to palpation Back/Spine/Pelvis Other: unremarkable Skin General skin exam: no rashes or lesions noted Neuro General: patient oriented x3 Extrem General: Yes normal to inspection Psych Mental Status: mental status grossly normal Assessment & Plan Assessment & Plan (1) Abdominal distention: Code(s): R14.0 - Abdominal distension (gaseous) Category: Medical Plan His abdominal distention seems primarily GI in nature. Should get assessment from his own surgeon Dr. Mota. No specific cardiac testing needed for that unless primary GI causes excluded. After this appointment, patient was taken to the surgical office for assessment. Coding Level of Care Code Est Pt Level 3 (21105) Diagnoses Abdominal distention R14.0
--- OUTSIDE RECORDS SUMMARY | 2024-11-21 14:59 | XMS_ITS ---
Author Organization [facility] Address [address] [place] [address] Care Team Providers Care Automotive Service Advisor Name Role Phone Boo SIMS, Mahad Primary Care Provider Juancarlos Cohen [phone] REASON FOR VISIT 2 day prep, colon screening Problems Problem Type SNOMED Code ICD Code Onset Dates Problem Status W/U Status Risk Notes Problem History of gastrointestinal tract bypass (060839321) Intestinal bypass and anastomosis status (Z98.0) Active confirmed Problem Diverticular disease of colon (656706444) Diverticulosis of large intestine without perforation or abscess without bleeding (K57.30) Active confirmed Encounters Encounter Location Date Provider Diagnosis [facility] Outpatient [address], [place] [phone] 09/14/2024 Juancarlos Sher Colon cancer scree geeta [...] Notes * RACHAEL AGUSTINDOB: (74 yo M)Acc No.[id number]:09/14/2024 COLON WITH MAC Patient:?ELIZABETH AGUSTIN Provider:?Juancarlos Sher MD :1950???Age:74 Y???Sex:Male Alfie e:09/14/2024 Address: [address], [facility] Pcp:Mahad Haddad MD Subjective: * Chief Complaints: [...] - K64.8??? Plan: * Treatment: * Procedure Codes:?39543 LESIO N REMOVAL COLONOSCOPY, Modifiers: PT , [...] MD Date:? 025 Generated for Xena purdy/Adina/eTransmitting on:?11/21/2024 02:59 PM EDT
--- OUTSIDE RECORDS SUMMARY | 2024-11-21 14:59 | XMS_ITS ---
Author Organization [facility] Address [address] [place] [address] Care Team Providers Care Fisher Quahog Name Role Phone Boo ISMS, Mahad Primary Care Provider Juancarlos Cohen [phone] REASON FOR VISIT hx colon ca,screening,hx polyps Encounters Encounter Location Date Provider Diagnosis [facility] [address] [place] [address] [place] [address] 11/10/2024 Juancarlos Sher Plan Of Treatment No Information Progress Notes * RACHAEL AGUSTINDOB: (74 yo M)Acc No.[id number]:11/10/2024 COLON WITH MAC Patient:?ELIZABETH AGUSTIN Provider:?Juancarlos Sher MD :1950???Age:74 Y???Sex:Male Alfie e:11/10/2024 Address:[address] [id number] Pcp:Mahad Haddad MD Subjective: * Chief Complaints: * ???1. Hx colon ca,screening, hx polyps. * Medical History:? Objective: * Vitals:? Assessment: Plan: * Treatment: * * The named appointment provid er may or may not be the originator of this progress note, and it is not deemed complete until electronically signed by the appointment provider. Sign off status: Pending * Provider:?Juancarlos Sher MD Date:? 025 Generated for Xena purdy/Adina/eTransmitting on:?11/21/2024 02:58 PM EDT
--- OUTSIDE RECORDS SUMMARY | 2024-11-21 14:59 | XMS_ITS | Clinical Summary ---
Author Organization [facility] Address [address] [place] [address] Phone Care Team Providers Care Zanjero Name Role Phone Mahad Haddad MD Primary Care Provider [phone] Allergies No known active allergies Medications acarbose [...] Essential hypertension 03/10/2021 Renal stone 03/10/2021 Immunizations Immunization Administration Dates Next Due Influenza Split 06/11/2012 [...] Colorectal Cancer Screening: Sigmoidoscopy 2001 Pneumococcal Vaccine: 50+ Years (2 of 2 - PPSV23) 04/02/2019 02/05/2019, 02/05/2019 Diabetes: Hemoglobin A1C 09/09/2021 021, 10/16/2018, 09/23/2017, Additional history exists Diabetes: Ophthalmology Exam 09/09/2021 Diabetes: Pedal Pulse Checked 09/09/2021 Diabetes: Sensory Foot Exam 09/09/2021 Diabetes: Visual Foot Exam 09/09/2021 Influenza Vaccine (Season Ended) 2025 06/11/2012 Pneumococcal Vaccine: Peds (0 to 5 Years) and At-Risk Patients (6 to 49 Years) Discontinued 02/05/2019, 02/05/2019 Hepatitis B Vaccine Aged Out No longe r eligible based on patient's age to complete this topic Insurance [facility] Medicare [facility] Medicare Care Teams Zanjero Relationship Specialty Start Date End Date Mahad Haddad MD [id number] [place] PCP - General 08/18/20
--- OUTSIDE RECORDS SUMMARY | 2024-11-21 14:59 | XMS_ITS ---
Author Organization Mahad Haddad MD Address [address] [place] [id number] Care Team Providers Care Packaging Technician Name Role Phone Mahad Haddad Primary Care Provider REASON FOR VISIT ER Encounters Encounter Location Date Provider Diagnosis Mahad Haddad MD [address] [place], [place] [phone] 11/02/2024 Mahad Haddad Plan Of Treatment Next Appt Details Provider Name:Mahad de la paz, 02/26/2025 07:45:00 AM, [address], [address], [place], [phone], Provider Name:Mahad Jang ana cristina, 03/05/2025 09:30:00 AM, [address] [facility], [address], [place], [phone], Provider Name:Mahad Jang shaileshr, 10/03/2025 11:00:00 AM, [address] [facility], [address], [place], [phone], Progress Notes * RACHAEL CARTERDOB:[birth year] (74 yo M)Acc No.[id number]:11/02/2024 Patient:?RACHAEL CARTER :1950???Age:74 Y???Sex:Male Address: [address], [place], [address] * true * Date:? Generated for Xena purdy/Adina/eTransmitting on:?11/21/2024 02:58 PM EDT
--- OUTSIDE RECORDS SUMMARY | 2024-11-21 15:00 | XMS_ITS | Patient Health Record ---
Author Organization Mahad John MD Address [address] [place] [address] [phone] Support Name Relationship Address Phone Mahad John Caregiver [address] [facility] [address] [place] [address] [phone] Svetlana Maldonado Caregiver [address] [facility] [address] [place] [address] [phone] Callie Melendez Caregiver [address] [facility] [address] [place] [address] [phone] MARSHA COOLEY Caregiver [facility] [address] [place] [address] [phone] Candido Rodriguez Caregiver [facility] [address] [place] [address] [phone] KIKI POLANCO Caregiver [address] [place] [address] [phone] Erik Vaz Caregiver [address] [facility] [address] sherman [address] [place] [address] [phone] Jennifer Ji Caregiver 10 [facility] ve [address] [place] [address] [phone] KRISTINA CARTER Emergency Contact [address] [place] [address] RACHAEL CARTER Guarantor Unknown [phone] Care Team Providers Care Senior Receptionist Name Role Phone Mahad John Primary Care Provider [phone] Allergies No Known Allergies Results Component Value Reference Range Notes Hemoglobin A1c Reviewed date:12/09/2023 03:10:56 PM Interpretation: Performing Lab: Notes/Report: Hemoglobin A1c 9.1 Glucose, finger stick Reviewed date:12/09/2023 03:04:21 PM Interpretation: Performing Lab: Notes/Report: Value 210 Glucose, finger stick Reviewed date:09/28/2024 10:01:27 AM Interpretation: Performing Lab: Notes/Report: Value 210 US bladder Reviewed date:01/05/2024 07:19:04 PM Interpretation: Performing Lab: Notes/Report: [address] [address] Ultrasound Report Signed Patient: Rachael Sanon MR#: [id number] : 1950 Acct:[id number] Age/Sex: 73 / M ADM Date: 12/14/23 Loc: HO.US Attending Dr: Rafita Garland MD Ordering Physician: Rafita Garland MD Date of Service: 12/14/23 Procedure(s): US bladder Accession Number(s): [id number] cc: Rafita Garland MD; Mahad John MD [...] in OV> 12/19/23 1407 DD/ 1143 TD/TT: Cripple Worker: [address] [address] Ultrasound Report Signed Patient: Rachael Sanon MR#: [id number] : 1950 Acct:[id number] Age/Sex: 73 / M ADM Date: 12/14/23 Loc: HO.US Attending Dr: Rachel Tena MD Ordering Physician: Rafita Garland MD Date of Service: 12/14/23 Procedure(s): US bladder Accession Number(s): [id number] cc: Rafita Garland MD; Mahad John MD [...] mL. The prostate volume is 16.9 mL. U S/US bladder IMPRESSION: Postvoid bladder vol ume is 52 mL. Dictated By: Radha Talley MD Signed By: <Electronically signed by Radha Talley MD in OV> 12/19/23 1407 DD/ 1143 TD/TT: Cripple Worker: Complete Blood Count Auto Di ff Reviewed date:01/27/2024 01:32:03 PM Interpretation: Performing Lab:[facility], [address] [place] [phone] Notes/Report: White Blood Count 7.0 4.8-10.8 X10*3/uL [...] NRBC Abs Auto 0.000 0.0-0.012 X10*3/uL Comprehensive [place]. Panel Fa st Reviewed date:01/27/2024 01:32:20 PM Interpretation: Performing Lab:[facility], [address] [place] [phone] Notes/Report: Sodium 141 135-145 mmol/L Potassium 3.6 3.3-5.1 mmol/L Chloride 104 96-108 mmol/L Carbon Dioxide 29 22-29 mmol/L Anion Gap 12 12-20 Blood Urea Nitrogen 11 9-16 mg/dL Creatinine 0.78 0.5-1.4 mg/dL Estimated Glomerular Filt Rate > 60 NOTE: For -Kenyan individuals, multiply the result by 1.210. Chronic [...] Panel Reviewed date:01/27/2024 01:31:15 PM Interpretation: Performing Lab:[facility], [address] [place] [phone] Notes/Report: Triglycerides 61 <150 mg/dL Desirable Triglyceride: [...] (Free>4and<10) Reviewed date:01/27/2024 01:31:39 PM Interpretation: Performing Lab:[address] [address] Notes/Report: PSA,Total (Free>4and<10) 1.31 0.00-4.00 ng/mL A [...] Random Reviewed date:01/27/2024 01:31:22 PM Interpretation: Performing Lab:[facility], [address] [place] [phone] Notes/Report: Creatinine Urine 67.40 Microalbumin Urine < 5.0 Microalbum/Creatinine Ratio Ur TNP <30 ug/mg cr Unable to calculate albumin/creatinine ratio due to low microalbumin or creatinine result. Hemoglobin A1c Reviewed date:01/27/2024 01:31:05 PM Interpretation: Performing Lab:[facility], [address] [place] [phone] Notes/Report: Hemoglobin A1c % 9.2 <6.0 % [...] average glucose, using the formula of the D4E-Bughkgp Average Glucose study (ADAG), Diabetes Care, Vol.31,#8, 2007 UA ClnCatch+Micro w/rflx Cul t Reviewed date:01/27/2024 01:32:36 PM Interpretation: Performing Lab:[facility], [address] [place] [phone] Notes/Report: Urine, Clean Catch Color Urine Yellow Appearance Urine Clear PH 7.5 5.0-9.0 Glucose Urine UA Negative Negative mg/dL Urine Blood Negative Negative Specific [place] - Urine 1.015 1.005-1.025 Urine Protein Negative [...] ff Reviewed date:01/31/2024 12:41:05 PM Interpretation: Performing Lab:[facility], [address] [place] [phone] Notes/Report: White Blood Count 7.4 4.8-10.8 X10*3/uL [...] INR Reviewed date:01/31/2024 12:33:44 PM Interpretation: Performing Lab:[address] [address] Notes/Report: Prothrombin Time 12.0 11.1-13.3 SEC INTERNATIONAL [...] Panel Reviewed date:01/31/2024 12:33:52 PM Interpretation: Performing Lab:[address] [address] Notes/Report: Bilirubin Total 0.5 0.0-1.0 mg/dL Bilirubin Direct 0.2 0.0-0.5 mg/dL Aspartate Amino Transferase 17 5-37 U/L Alanine Aminotransferase 15 0-40 U/L Total Protein 7.2 6.5-8.0 g/dL Albumin Level 4.0 3.5-5.0 g/dL Alkaline Phosphatase 68 39-117 U/L Basic Metabolic Panel Reviewed date:01/31/2024 12:34:18 PM Interpretation: Performing Lab:[address] [address] Notes/Report: Sodium 140 135-145 mmol/L Potassium 4.5 [...] Glomerular Filt Rate > 60 NOTE: For -Kenyan individuals, multiply the result by 1.210. Chronic Kidney Disease: Estimated GFR < 60 mL/min/1.73m2 Severe Kidney Disease: Estimated GFR < 15 mL/min/1.73m2 Glucose Random 252 60-115 mg/dL Calcium 9.6 8.4-10.2 mg/dL Magnesium Reviewed date:01/31/2024 12:33:29 PM Interpretation: Performing Lab:[facility], [address] [place] [phone] Notes/Report: Magnesium 1.8 1.6-2.6 mg/dL Ammonia Reviewed date:01/31/2024 12:32:01 PM Interpretation: Performing Lab:[facility], [address] [place] [phone] Notes/Report: Ammonia 24 13-55 umol/L Troponin-I High Sensitivity Reviewed date:01/31/2024 12:33:21 PM Interpretation: Performing Lab:[address] [address] Notes/Report: Troponin-I High Sensitivity < 2.7 <3.5-35.0 ng/L The [place] high sensitivity Troponin-I results should be used in conjunction with other diagnostic information such as ECG, clinical observations and information, and patient symptoms to aid in the diagnosis of HI. SARS-CoV2/FLU/RSV Reviewed date:01/31/2024 12:33:59 PM Interpretation: Performing Lab:[facility], [address] [place] [phone] Notes/Report: Influenza A PCR NEGATIVE Negative Influenza [...] by authorized laboratories. Testing performed on the [facility] GeneXpert utilizing real-time RT-PCR. All SARS CoV2 and positive influenza A/B results are reported to [facility]. UA ClnCatch+Micro w/rflx Cul t Reviewed date:01/31/2024 04:57:22 PM Interpretation: Performing Lab:[facility], [address] [place] [phone] Notes/Report: [id number] Urine, Clean Catch Color Urine Dark Yellow Appearance Urine Cloudy PH 5.5 5.0-9.0 Glucose Urine UA >=1000 Negative mg/dL Urine Blood Negative Negative Specific [place] - Urine >= 1.030 1.005-1.025 Urine Protein 30 (1+) Neg-Trace mg/dL Urine Ketones Trace Negative mg/dL Nitrite Urine Negative Negative Leukocyte Esterase Urine Negative Negative CT angio head neck Reviewed date:01/31/2024 01:34:01 PM Interpretation: Performing Lab: Notes/Report: [address] [address] [address] Scan Report Signed Patient: Rachael Sanon MR#: [id number] : 1950 Acct:[id number] Age/Sex: 73 / M ADM Date: 01/30/24 Loc: .ED Attending Dr: Ordering Physician: Solomon Jacobson MD Date of Service: 06/24/24 Procedure(s): CT angio head neck Accession Number(s): [id number] cc: Mahad John MD; Solomon Jacobson MD EXAMINATION: CT ANGIOGRAM HEAD CT ANGIOGRAM NECK CLINICAL INFORMATION: Reason for Exam Dizziness with neck pain./vertebral artery stenos COMPARISON: Same day CT head without contrast, MRI of the brain without contrast 10/25/2021 TECHNIQUE: Initial noncontrast layer up imaging of the head and neck was performed. Comparison is made with noncontrast head CT from earlier today. Test bolus sequences followed by intravenous administration 70 mL of Omnipaque 350. Helical imaging was performed in the axial plane from the aortic arch to the skull vertex. Delayed postcontrast imaging of the head was also performed. The data was processed at the registered vascular technologist (rvt) workstation for generation of MIP sequences. Angled [...] P1 segment. Normal opacification of the distal MDS MANAGER segments. Left Posterior Cerebral Artery: Normal P1 segment. Normal opacification of the distal MDS MANAGER segments. Normal opacification of the superior sagittal, straight, transverse, and sigmoid sinuses. CT/CT angio head neck IMPRESSION: No arterial high grade stenosis or large vessel occlusion in the head or neck. No evidence of arterial dissection. Dictated By: Jamshid Ferrer Signed By: <Electronically signed by Jamshid Ferrer in OV> 01/30/240 DD/ 2210 TD/TT: Cripple Worker: [address] [address] [address] Scan Report Signed Patient: Rachael Sanon MR#: [id number] : 1950 Acct:[id number] Age/Sex: 73 / M ADM Date: 01/30/24 Loc: HO.ED Attending Dr: Ordering Physician: Solomon Jacobson MD Date of Service: 01/30/24 Procedure(s): CT ang io head neck Accession Number(s): [id number] cc: Mahad John MD; Solomon Jacobson MD EXAMINATION: CT ANGIOGRAM HEAD CT ANGIOGRAM NECK CLINICAL INFORMATION: Reason for Exam Dizziness with neck pain./vertebral artery stenos COMPARISON: Same day CT head wit hout contrast, MRI of the brain without contrast 10/25/2021 TECHNIQUE: Initial noncontrast layer up imaging of the head and neck was performed. Comparison is made w ith noncontrast head CT from earlier today. Test bolus sequences foll owed by intravenous administration 70 mL of Omnipaque 350. Helic al imaging was performed in the axial plane from the aortic arch to t he skull vertex. Delayed postcontrast imaging of the head was also performed. The data was processed at the registered vascular technologist (rvt) worksta tion for generation of MIP sequences. Angled MIPs and volume rendered reformatted images were also generated at an offline 3D workstati on. Stenoses are assessed in accordance with NASCET criteria unless otherwise indicated. DLP: 1555 mGy-cm This CT examination was performed using dose optimization techniques as appropriate, various ly including the following: *Automated exposure control. *Adjustment of mA an d/or kV according to patient size (this includes [...] in size and configuration. No evidence for obstruc tive hydrocephalus. No abnormal mass effect or midline [...] No focal stenosis or occlusion. Cervical Left Store Clerk Checker al Carotid Artery: Calcific atherosclerotic disease of the carotid bulb and proximal internal carotid artery causing less than 50% stenosis. Cervical Right Verte bral Artery: No focal stenosis or occlusion. Cervical [...] the proximal superior cerebellar arteries. Right Posterior Cere bral Artery: Normal P1 segment. Normal opacification of the distal MDS MANAGER segments. Left Posterior Cereb ral Artery: Normal P1 segment. Normal opacification of the distal MDS MANAGER segments. Normal opacification of the superior sagittal, straight, transverse, and sigmoid sinuses. C T/CT angio head neck IMPRESSION: No arterial high gra de stenosis or large vessel occlusion in the head or neck. No evidence of arterial dissection. Dictated By: Jamshid Ferrer Signed By: <Electronically signed by Jamshid Ferrer in OV> 01/30/242239 DD/ 09 TD/TT: Cripple Worker: CT head/brain wo con Reviewed date:01/31/2024 12:32:42 PM Interpretation: Performing Lab: Notes/Report: [address] [address] [address] Scan Report Signed Patient: Rachael Sanon MR#: M [id number] : 1950 Acct:[id number] Age/Sex: 73 / M ADM Date: 01/30/24 Loc: HO.ED Attending Dr: Ordering Physician: Radha Caal Date of Service: 01/30/24 Procedure(s): CT head/brain wo IV con Accession Number(s): [id number] cc: Mahad John MD; Radha Caal EXAMINATION: [...] in OV> 01/30/24 1515 DD/ 1410 TD/TT: Cripple Worker: [address] [address] [address] Scan Report Signed Patient: Rachael Sanon MR#: M [id number] : 1950 Acct:[id number] Age/Sex: 73 / M ADM Date: 01/30/24 Loc: HO.ED Attending Dr: Ordering Physician: Radha Caal Date of Service: 01/30/24 Procedure(s): CT head/brain wo IV con Accession Number(s): [id number] cc: Mahad John MD; Radha Caal EXAMINATION: CT HEAD WITHOUT CONTRAST CLINICAL INFORMATION: Altered mental status COMPARISON: CT head October 25, 2021 TECHNIQUE: Contiguous axial mahesh ging was performed from the skull base to vertex without intravenous administration of contrast. Coronal and sagittal reformatted images are performed at the CT scanner. [This CT examination was performed using dose optimization techniques as appropriate, variously including the following: *Automated exposure control *Adjustment of mA an d/or kV according to patient size (this includes [...] portions of the paranasal sinuses are well-aerated. C T/CT head/brain wo IV con IMPRESSION: No acute intracrania l pathology. Dictated By: Wu Cano MD Signed By: <Electronically signed by Dustin Cano MD in OV> 01/30/24 1515 DD/ 1410 TD/TT: Audiometrist ist: BA XR chest 1V Reviewed date:01/31/2024 12:33:00 PM Interpretation: Performing Lab: Notes/Report: [address] [address] XRay Report Signed Patient: Rachael Sanon MR#: M [id number] : 1950 Acct:[id number] Age/Sex: 73 / M ADM Date: 01/30/24 Loc: HO.ED Attending Dr: Ordering Physician: Radha Caal Date of Service: 01/30/24 Procedure(s): XR chest 1V Accession Number(s): [id number] cc: Mahad John MD; Radha Caal EXAMINATION: [...] MD in OV> 01/30/241515 DD/ 1400 TD/TT: Cripple Worker: [address] [address] XRay Report Signed Patient: Rachael Sanon MR#: M [id number] : 1950 Acct:[id number] Age/Sex: 73 / M ADM Date: 01/30/24 Loc: .ED Attending Dr: Ordering Physician: Radha Caal Date of Service: 01/30/24 Procedure(s): XR teri st 1V Accession Number(s): [id number] cc: Mahad John MD; Radha Caal EXAMINATION: XR CHEST CLINICAL INFORMATION: Altered mental status COMPARISON: Chest x-ray Septembe 2022 TECHNIQUE: Frontal view of the chest was obtained. 2:05 PM FINDINGS: No significant abnormality is noted involving the heart, lungs, mediastinum, bony th orax or soft tissues. X R/XR chest 1V IMPRESSION: Unremarkable examination. Dictated By: Wu Cano MD Signed By: <Electronically signed by Dustin Cano MD in OV> 01/30/241515 DD/ 1400 TD/TT: Audiometrist ist: RADHAMES UA ClnCatch+Micro w/rflx Cul t Reviewed date:01/31/2024 12:39:15 PM Interpretation: Performing Lab:[facility], [address] [place] [phone] Notes/Report: [id number] Urine, Clean Catch Color Urine Dark Yellow Appearance Urine Cloudy PH 5.5 5.0-9.0 Glucose Urine UA >=1000 Negative mg/dL Urine Blood Negative Negative Specific [place] - Urine >= 1.030 1.005-1.025 Urine Protein [...] Antigen Reviewed date:04/19/2024 08:49:31 AM Interpretation: Performing Lab:[facility], [address] [place] [phone] Notes/Report: Prostate Specific Antigen 1.52 <0.05-4.0 ng/mL PSA methodology: [place] Alinity i Chemiluminescent Microparticle Immunoassay (CMIA) Vitamin B12 and Folate Reviewed date:05/21/2024 10:52:51 AM Interpretation: Performing Lab:[facility], [address] [place] [phone] Notes/Report: Vitamin B12 435 200-900 pg/mL NORMAL 200-900 PG/ML INDETERMINATE 160-199 PG/ML DEFICIENT < 160 PG/ML Folate 11.1 > or = 4.0 ng/mL Reference Values: > or = 4.0 ng/mL < 4.0 ng/mL suggests folate deficiency Methotrexate, aminopterin and folinic acid (leucovorin) are chemotherapeutic agents whose molecular structures are similar to folate; therefore, the Car Unloader folate assay cannot be used for patients using these drugs. TSH reflex Free T4 Reviewed date:05/21/2024 11:01:50 AM Interpretation: Performing Lab:[facility], [address] [place] [phone] Notes/Report: TSH reflex Free T4 0.97 0.32-4.0 uIU/mL Glucose, Whole Blood Reviewed date:09/14/2024 12:30:34 PM Interpretation: Performing Lab:[facility], [address] [place] [phone] Notes/Report: Glucose, Whole Blood 138 60-115 mg/dL METER # : [id number] Pathology Reviewed date:09/18/2024 12:42:22 PM Interpretation: Performing Lab:[facility], [address] [facility], [place] [address] Notes/Report: ---- Name: Rachael Sanon Age/Sex: 74/M : 1950 Unit#: [id number] Attend Dr: Juancarlos Brown MD Re09/14/24 Status : [facility] Location: [facility] Disch: ---- SPEC : [id number] RECD: 09/14/24 STATUS: TANI KAUFMAN NUM: [id number] KEYSHAWN: 09/14/24-[address] [facility] [address]: Juancarlos Brown MD [...] in 3 parts. A. Received in forma NodePrime labeled ?distal transverse colon polyp? are fragments of henriquez-white soft tissue measurin g 0.1-0.4 cm in greatest dimension, forming an aggregate measuring 0.8 x 0.6 x 0.2 cm which i s wrapped in lens paper and entirely submitted for microscopic examination, multipl e pieces in cassette A. B. Received in forma NodePrime labeled ?polyp near anastomosis? are 4 fragments of pink white soft tissue measuring 0.2 -0.5 cm in greatest dimension which are wrapped in lens paper and entirely submitted f or microscopic examination, 4 pieces in cassette B. C. Received in forma NodePrime labeled ?proximal transverse colon polyp? are 2 [...] CONTINUED ON NEXT PAGE ---- Name: Rachael Sanon Age/Sex: 74/M : 1950 Unit#: [id number] Attend Dr: Juancarlos Brown MD Re09/14/24 Status : [facility] [place] Location: [facility] Disch: ---- SPEC : [id number] RECD: 02/ STATUS: TANI KAUFMAN NUM: [id number] KEYSHAWN: 09/14/[address] [facility] [address]: Juancarlos Brown MD ENTERED: 09/14/24 43 SP TYPE: Surgical OTHR DR: Mahad John MD ORDERED: HE Stain/, Gross Micro L4/3 Gross Description (Continued) The larger measures 1.5 x 1.2 x 0.9 cm in greatest dimension. The outer surface is smooth. The base shows a 0.3 cm in diameter resection site. The resection site is inked blue. The specimen is serially sectioned and entirely submitted for microscopic examination, 4 pieces in cassette C2. [facility] Copies To: Mahad John MD [facility] [address] [place] [address] Juancarlos Brown MD [facility] [address] [place] [address] ---- Signed (signature on file) Leora Holguin 09/17/24 1235 ---- END OF REPORT Daniel Betancourt Reviewed date:09/25/2024 04:53:21 PM Interpretation: Performing Lab:[facility], [address] [place] [address], [place] [address] Notes/Report: Daniel Betancourt See Note Specimen held untested for 24 hours; Call to request Chemistry testing. Hemoglobin A1c Reviewed date:09/25/2024 04:53:31 PM Interpretation: Performing Lab:[facility], [address] [place] [phone] Notes/Report: Hemoglobin A1c % 7.7 <6.0 % [...] average glucose, using the formula of the E0O-Uuirqfx Average Glucose study (ADAG), Diabetes Care, Vol.31,#8, 2007 Electrolytes Reviewed date:10/19/2024 12:22:07 PM Interpretation: Performing Lab:[facility], [address] [place] [phone] Notes/Report: Sodium 138 135-145 mmol/L Potassium 4.1 3.3-5.1 mmol/L Chloride 104 96-108 mmol/L Carbon Dioxide 27 22-29 mmol/L Anion Gap 11 12-20 Blood Urea Nitrogen Reviewed date:10/19/2024 12:22:27 PM Interpretation: Performing Lab:[facility], [address] [place] [phone] Notes/Report: Blood Urea Nitrogen 12 9-16 mg/dL Creatinine Reviewed date:10/19/2024 05:10:52 PM Interpretation: Performing Lab:[facility], [address] [place] [phone] Notes/Report: Creatinine 0.84 0.5-1.4 mg/dL Estimated Glomerular Filt Rate > 60 Chronic Kidney Disease: Estimated GFR < 60 mL/min/1.73m2 Severe Kidney Disease: Estimated GFR < 15 mL/min/1.73m2 Calcium Reviewed date:10/19/2024 05:11:00 PM Interpretation: Performing Lab:[facility], [address] [place] [phone] Notes/Report: Calcium 9.2 8.4-10.2 mg/dL Protein Creatinine Ratio, Ur Reviewed date:10/19/2024 05:11:12 PM Interpretation: Performing Lab:[facility], [address] [place] [phone] Notes/Report: Creatinine Urine 224.81 Total Protein Urine Random 16 <12 mg/dL Protein/Creatinine Ratio, Ur 0.07 <0.2 The spot urine protein:creatinine ratio may increase to 0.3 during normal . Complete Blood Count Auto Di ff Reviewed date:11/03/2024 09:30:06 AM Interpretation: Performing Lab:[facility], [address] [place] [phone] Notes/Report: White Blood Count 7.7 4.8-10.8 X10*3/uL Red Blood Count 4.46 4.60-5.80 X10*6/uL Hemoglobin 12.3 14.0-18.0 g/dl Hematocrit 37.1 42.0-52.0 % Mean Corpuscular Volume 83.2 80.0-98.0 fL Mean Corpuscular Hemoglobin 27.6 27.0-33.0 pg Mean Corpuscular HGB Conc 33.2 31.0-36.0 g/dl Red Cell Distribution Width 14.3 11.0-16.0 % Platelet Count 277 160-400 X10*3/uL Mean Platelet Volume 9.7 9.4-12.4 fL Neutrophils Percent Auto 68.8 45-73 % Imm Gran Pct Auto 0.4 0.0-0.4 % Lymphocytes Percent Auto 21.3 20-40 % Monocytes Percent Auto 6.9 2-11 % Eosinophils Percent Auto 1.8 0-4 % Basophils Percent Auto 0.8 0-2 % NRBC Pct Auto 0.0 0.0-0.2 /100WBC Neutrophils Absolute Auto 5.3 2.0-8.3 x10*3/uL Imm Gran Abs Auto 0.03 0.00-0.03 X10*3/uL Lymphocytes Absolute Auto 1.6 1.2-4.9 X10*3/uL Monocytes Absolute Auto 0.5 0.1-1.2 X10*3/uL Eosinophils Absolute Auto 0.1 0.0-0.4 X10*3/uL Basophils Absolute Auto 0.1 0.0-0.2 X10*3/uL NRBC Abs Auto 0.000 0.0-0.012 X10*3/uL Comprehensive Met. Panel Reviewed date:11/03/2024 09:28:51 AM Interpretation: Performing Lab:[facility], [address] [place] [phone] Notes/Report: Sodium 137 135-145 mmol/L Potassium 4.3 3.3-5.1 mmol/L Chloride 107 96-108 mmol/L Carbon Dioxide 24 22-29 mmol/L Anion Gap 10 12-20 Blood Urea Nitrogen 14 9-16 mg/dL Creatinine 0.96 0.5-1.4 mg/dL Creatinine Clr Calc Pharmacy 77.8 eGFR (calculated from the MDRD study equation) and eCrCl (calculated from the Cockcroft-Gault equation) are based on different parameters and may not yield comparable results. If eCrCl result is absurd, please check patient's height/weight. Estimated Glomerular Filt Rate > 60 Chronic Kidney Disease: Estimated GFR < 60 mL/min/1.73m2 Severe Kidney Disease: Estimated GFR < 15 mL/min/1.73m2 Glucose Random 344 60-115 mg/dL Calcium 9.0 8.4-10.2 mg/dL Bilirubin Total 0.3 0.0-1.0 mg/dL Aspartate Amino Transferase 20 5-37 U/L Alanine Aminotransferase 13 0-40 U/L Total Protein 7.3 6.5-8.0 g/dL Albumin Level 3.9 3.5-5.0 g/dL Alkaline Phosphatase 75 39-117 U/L Magnesium Reviewed date:11/02/2024 08:49:02 PM Interpretation: Performing Lab:[facility], [address] [place] [phone] Notes/Report: Magnesium 1.7 1.6-2.6 mg/dL Troponin-I High Sensitivity Reviewed date:11/02/2024 09:11:17 PM Interpretation: Performing Lab:[address] [address] Notes/Report: Troponin-I High Sensitivity < 2.7 <3.5-35.0 ng/L The [place] high sensitivity Troponin-I results should be used in conjunction with other diagnostic information such as ECG, clinical observations and information, and patient symptoms to aid in the diagnosis of HI. Lipase Reviewed date:11/02/2024 08:49:52 PM Interpretation: Performing Lab:[facility], [address] [place] [phone] Notes/Report: Lipase 15 8-78 U/L UA ClnCatch+Micro w/rflx Cul t Reviewed date:11/03/2024 09:29:07 AM Interpretation: Performing Lab:[facility], [address] [place] [phone] Notes/Report: [id number] Urine, Clean Catch Color Urine Yellow Appearance Urine Clear PH 5.5 5.0-9.0 Glucose Urine UA >=1000 Negative mg/dL Urine Blood Negative Negative Specific [place] - Urine >= 1.030 1.005-1.025 Urine Protein Negative Neg-Trace mg/dL Urine Ketones Negative Negative mg/dL Nitrite Urine Negative Negative Leukocyte Esterase Urine Negative Negative XR KUB Reviewed date:11/02/2024 09:10:21 PM Interpretation: Performing Lab: Notes/Report: [address] [address] XRay Report Signed Patient: Rachael Sanon MR#: [id number] : 1950 Acct:[id number] Age/Sex: 74 / M ADM Date: 11/02/24 Loc: HO.ED Attending Dr: Ordering Physician: Landy Rutledge CNP Date of Service: 11/02/24 Procedure(s): XR KUB Accession Number(s): [id number] cc: Landy Rutledge CNP; Mahad John MD EXAMINATION: XR ABDOMEN KUB CLINICAL INDICATION: R lateral ABD pain COMPARISON: None. Correlation made with CT abdomen and pelvis 10/26/2023. TECHNIQUE: AP view of the abdomen. FINDINGS: Bowel gas pattern demonstrates gaseous distention of the stomach, and gaseous distention of the colon including the sigmoid. There is moderate retained fecal residue in the right hemicolon and sigmoid. There is no small bowel dilatation or evidence of free air. No abnormal soft tissue calcifications. No organomegaly noted. There are retained lower lumbar bilateral stimulator leads. There is mild right convex scoliosis of the thoracolumbar spine with mild degenerative spondylosis. No acute bony abnormalities. XR/XR KUB IMPRESSION: 1. Gaseous distention of the stomach and colon, with moderate retained fecal material in the right colon and sigmoid. 2. No abnormal small bowel dilatation. 3. Ancillary findings as detailed. Electronically signed by: Solo Mejia MD 11/02/2024 11:15 AM EDT RP Dictated By: Solo Mejia MD Signed By: <Electronically signed by Solo Mejia MD in OV> 11/02/24 1115 DD/ 1027 TD/TT: 11/02/24 1055 Cripple Worker: [address] [address] XRay Report Signed Patient: Rachael Sanon MR#: [id number] : 1950 Acct:[id number] Age/Sex: 74 / M ADM Date: 11/02/24 Loc: HO.ED Attending Dr: Ordering Physician: Landy Rutledge CNP Date of Service: 11/02/24 Procedure(s): XR KUB Accession Number(s): [id number] cc: Landy Rutledge CNP; Mahad John MD EXAMINATION: XR ABDOMEN KUB CLINICAL INDICATION: R lateral ABD pain COMPARISON: None. Correlation maribell garcia with CT abdomen and pelvis 10/26/2023. TECHNIQUE: AP view of the abdomen. FINDINGS: Bowel gas pattern demonstrates gaseous distention of the stomach, and gaseous distention o f the colon including the sigmoid. There is moderate retained fe elisa residue in the right hemicolon and sigmoid. There is no small elier wel dilatation or evidence of free air. No abnormal soft tis giana calcifications. No organomegaly noted. There are retained l ower lumbar bilateral stimulator leads. There is mild right convex scoliosis of the thoracolumbar spine with mild degenerative spondylosis. No acute bony abnormalities. X R/XR KUB IMPRESSION: 1. Gaseous distentio n of the stomach and colon, with moderate retained fecal material in th e right colon and sigmoid. 2. No abnormal small bowel dilatation. 3. Ancillary finding s as detailed. Electronically antonieta d by: Solo Mejia MD 11/02/2024 11:15 AM EDT RP Dictated By: Solo Mejia MD Signed By: <Electronically signed by Solo Mejia MD in OV> 11/02/24 1115 DD/ 1027 TD/TT: 11/02/24 1055 Cripple Worker: XR chest 2V Reviewed date:11/03/2024 09:28:31 AM Interpretation: Performing Lab: Notes/Report: [address] [address] XRay Report Signed Patient: Rachael Sanon MR#: [id number] : 1950 Acct:[id number] Age/Sex: 74 / M ADM Date: 11/02/24 Loc: HO.ED Attending Dr: Ordering Physician: Landy Rutledge CNP Date of Service: 11/02/24 Procedure(s): XR chest 2V Accession Number(s): [id number] cc: Landy Rutledge CNP; Mahad John MD EXAMINATION: XR CHEST CLINICAL INFORMATION: R lateral ABD/ lower rib pain COMPARISON: 01/30/2024, 04/18/2023. TECHNIQUE: 2 views of the chest were obtained. FINDINGS: Mild left hemidiaphragmatic elevation. This is unchanged. The cardiac, hilar, and mediastinal contours are normal. Mild stable dextro positioning of the heart. Lungs demonstrate low lung volumes left greater than right, with mild basilar scarring/atelectasis on the left. This appears stable. Lungs otherwise clear. There is no pneumothorax or pleural effusion. Soft tissues demonstrate mild gaseous distention of the colon, nonspecific. No discrete osseous abnormality. XR/XR chest 2V IMPRESSION: 1. Mildly chronically elevated left hemidiaphragm, with low lung volumes left greater than right, a stable finding. Lungs otherwise clear. 2. No acute bony abnormalities. 3. Gaseous distention of the colon incidentally noted. Electronically signed by: Solo Mejia MD 11/02/2024 11:12 AM EDT RP Dictated By: Sool Mejia MD Signed By: <Electronically signed by Solo Mejia MD in OV> 11/02/24 1112 DD/ 1040 TD/TT: 11/02/24 1055 Cripple Worker: [address] [address] XRay Report Signed Patient: Rachael Sanon MR#: [id number] : 1950 Acct:[id number] Age/Sex: 74 / M ADM Date: 11/02/24 Loc: HO.ED Attending Dr: Ordering Physician: Landy Rutledge CNP Date of Service: 11/02/24 Procedure(s): XR teri st 2V Accession Number(s): [id number] cc: Landy Rutledge OFFICE SPEC; Mahad John MD EXAMINATION: XR CHEST CLINICAL INFORMATION: R lateral ABD/ lower rib pain COMPARISON: 01/30/2024, 04/18/2023. TECHNIQUE: 2 views of the chest were obtained. FINDINGS: Mild left hemidiaphragmatic elevation. This is unchanged. The cardiac, hilar, and mediastinal contours are normal. Mild stable dextro positioning o f the heart. Lungs demonstrate lo w lung volumes left greater than right, with mild basilar scarring/atelectasis on the left. This appears stable. Lungs otherwise clear. The re is no pneumothorax or pleural effusion. Soft tissues demonst rate mild gaseous distention of the colon, nonspecific. No discrete osseous abnormality. X R/XR chest 2V IMPRESSION: 1. Mildly chronicall y elevated left hemidiaphragm, with low lung volumes left greater than right, a stable finding. Lungs otherwise clear. 2. No acute bony abnormalities. 3. Gaseous distentio n of the colon incidentally noted. Electronically antonieta d by: Solo Mejia MD 11/02/2024 11:12 AM EDT Dictated By: Solo Mejia MD Signed By: <Electronically signed by Solo Mejia MD in OV> 11/02/24 1112 DD/ 1040 TD/TT: 11/02/24 1055 Cripple Worker: ABHINAV Villegas+Micro w/rflx Cul t Reviewed date:11/03/2024 09:32:21 AM Interpretation: Performing Lab:[facility], [address] [place] [phone] Notes/Report: [id number] Urine, Clean Catch Color Urine Yellow Appearance Urine Clear PH 5.5 5.0-9.0 Glucose Urine UA >=1000 Negative mg/dL Urine Blood Negative Negative Specific [place] - Urine >= 1.030 1.005-1.025 Urine Protein Negative Neg-Trace mg/dL Urine Ketones Negative Negative mg/dL Nitrite Urine Negative Negative Leukocyte Esterase Urine Negative Negative RBC Urine 0-2 0-2 /HPF WBC Urine 0-5 0-5 /HPF Squamous Epithelial Cell Urine 0-2 0-2 /HPF Bacteria Urine None Seen None Seen Hyaline Casts Urine 0-2 0-2 /LPF Glucose, Whole Blood Reviewed date:11/06/2024 12:20:28 PM Interpretation: Performing Lab:[facility], [address] [place] [phone] Notes/Report: Glucose, Whole Blood 176 60-115 mg/dL METER # : [id number] Pathology Reviewed date:11/08/2024 10:59:39 AM Interpretation: Performing Lab:[facility], [address] [place] [phone] Notes/Report: ---- Name: Rachael Sanon Age/Sex: 74/M : 1950 Unit#: [id number] Attend Dr: Rafita Garland MD Re11/05/24 Status : [facility] Location: [facility] Disch: ---- SPEC : [id number] RECD : 11/05/24 STATUS: TANI KAUFMAN NUM: [id number] KEYSHAWN: 11/05/24-[address] [facility] [address]: Rafita Garland MD ENTERED: 11/05/24-07 08 SP TYPE: Surgical OTHR DR: Mahad John MD ORDERED: Gross Micro L4 Diagnosis Prostate, transureth ral resection: Benign prostatic tissue; negative for malignancy. Clinical History Bladder neck obstruction Microscopic Description Microscopic sections reviewed. Material Received Prostate Gross Description Received in formalin labeled prostate? is a 0.5 cm cauterized, congested and hemorrhagic, henriquez-red irregular fragment of fibromuscular tissue, submitted in toto in a cassette labeled A. CEDS This case was review ed intradepartmentally. Copies To: Rafita Garland MD [facility] [address] [place] [address] [address] [place] [address] Mahad John MD [facility] [address] [place] [address] [address] [place] [address] ---- Signed (signature on file) Effie Newman MD 11/06/24 1201 ---- END OF REPORT Reason For Referral Reason SMALL BOWEL OBSTRUCT ION Diagnosis 1 Small bowel obstruct ion (K56.609) Referral Organization Mahad John MD Referring Provider First Name Mahad Referring Provider Last Name Boo Referring Provider Speciality Internal M edicine Referred Provider Juancarlos Brown Referred Provider [...] Provider Speciality Internal M edicine Referred Provider [facility] Referred Provider Specialty Neurology General Notes Nohemi San 03/13/2024 01:46:31 PM EDT > REFERRAL FAXED TO [facility], Megan Ortiz 04/30/2024 08:43:59 AM EDT > left message for office to call regarding apptAngel Annette 05/24/2024 11:08:27 AM >received another request for patient to have a brain MRI done, explained to them this is still being worked on. Patient has an implanted they are checking with the techs. Was told he is on a waiting list for this appt.Angel Annette 06/04/2024 01:12:15 PM EDT > spoke with patient son Rachael Schrader no longer wishes to go to [facility] or hav the MRI done. [...] MG as directed Orally tid Active Pen [place] 33G X 4 MM as directed sq [...] Problem Status W/U Status Risk Notes Problem 58440629 Prostatism (N40.0) Active confirmed Problem Anxiety (92860530) Anxiety (F41.9) Active confirmed Problem 545692455 Diverticulitis (K57.92) Active confirmed Problem 58947078 Irritable bowel syndrome without diarrhea (K58.9) Active confirmed Problem 53244465 Lumbar disc dise ase (M51.9) Active confirmed Problem 98168147 Essential hypert ension (I10) Active confirmed Problem 43010688 Type 2 diabetes mellitus without complication (E11.9) Active confirmed Problem 06201248 Memory loss (R41.3) Active confirmed Problem 369770636 History of colon cancer (Z85.038) Active confirmed Problem Dysthymia (80928944) Dysthymia (F34.1) Active confirmed Problem 11276715 Heart burn (R12) Active confirmed Problem 110672447 Pure hypercholesterolemia (E78.00) Active confirmed Problem 053424069 Back pain, unspe cified back location, unspecified back pain laterality, unspecified chronicity (M54.9) Active confirmed Problem 562918129 BMI 32.0-32.9,ad ult (Z68.32) Active confirmed Problem Psychoactive substance dependence (8605606) Drug dependence (F19.20) Active confirmed Problem 296187723 SBO (small bowel obstruction) (K56.609) Active confirmed Problem 997927436 Dry eyes, bilate ral (H04.123) Active confirmed Vital Signs Blood pressure diastolic 84 mm Hg 09/28/2024 Height 68 in 09/28/2024 Blood pressure systolic 158 mm Hg 09/28/2024 Weight 216 lbs 09/28/2024 BMI 32.84 kg/m2 09/28/2024 Encounters Encounter Location Date Provider Diagnosis Mahad John MD [address] [place] [address] [id number] 01/27/2024 Mahad John Blood tests for rout ine general physical examination Z00.00 ; Essential hypertension I10 ; Prostatism N40.0 ; Pure hypercholesterolemia E78.00 and Type 2 diabetes mellitus without complication E11.9 Mahad John MD [address] [place] [address] [id number] 05/15/2024 Mahad John Memory loss R41.3 Mahad John MD [address] [place] [id number] 09/21/2024 Mahad John Type 2 diabetes margi itus without complication E11.9 and Pure hypercholesterolemia E78.00 Mahad John MD [address] [place] [id number] 12/09/2023 Mahad John Type 2 diabetes margi itus without complication E11.9 ; History of colon cancer Z85.038 and Small bowel obstruction K56.609 Mahad John MD [address] [place] [id number] 01/24/2024 Mahad John Memory loss R41.3 ; Dizziness, nonspecific R42 and Neck pain, acute M54.2 Mahad John MD [address] [place] [address] [id number] 03/02/2024 Mahad John Type 2 diabetes margi itus without complication E11.9 ; Essential hypertension I10 ; Prostatism N40.0 ; Pure hypercholesterolemia E78.00 and Dysthymia F34.1 Mahad John MD [address] [place] [address] [id number] 09/28/2024 Mahad John Type 2 diabetes margi itus without complication E11.9 and Encounter for general adult medical examination without abnormal findings Z00.00 Mahad John MD [address] [place] [address] [id number] 12/09/2023 Mahad John MD [address] [place] [address] [id number] 01/31/2024 Mahad John Dizziness R42 Mahad John MD [address] [place] [address] [id number] 05/03/2024 Mahad John Memory loss R41.3 Mahad John MD [address] [place] [address] [id number] 06/04/2024 Mahad John MD [address] [place] [id number] 09/28/2024 Mahad John MD [address] [place] [address] [id number] 11/02/2024 Mahad John Assessments Encounter Date Diagnosis (ICD Code) Assessment Notes Treatment Notes Treatment Clinical Notes Section Notes 01/27/2024 [address] tests [address] ine general physical examination (ICD-10 - Z00.00) 01/27/2024 Essential hypertensi on (ICD-10 - I10) 05/15/2024 Memory loss (ICD-10 - R41.3) 09/21/2024 Type 2 diabetes mellitus without complication (ICD-10 - E11.9) 09/21/2024 Pure hypercholesterolemia (ICD-10 - E78.00) 12/09/2023 Type 2 diabetes mellitus without complication (ICD-10 - E11.9) 01/24/2024 Memory loss (ICD-10 - R41.3) referral to [facility] memory center 01/24/2024 Dizziness, nonspecif ic (ICD-10 [...] 07:45:00 AM, [address], [address], [place], [phone], Provider Name:Mahad Jang ier, 03/05/2025 09:30:00 AM, [address], [address], [place], [phone], Provider Name:Mahad Jang ier, 10/03/2025 11:00:00 AM, [address], [address], [place], [phone], Insurance Providers Payer Name Payer Address Payer Phone Subscriber Number Group Number Insured Name Patient Relationship to Insured Coverage Start Date Coverage End Date [facility] [employer] [address] [address] [place] [address] [id number] RACHAEL CARTER Self - patient is the insured MEDICARE [employer] [address] [place] [id number] RACHAEL CARTER Self - patient is the [...]
--- OUTSIDE RECORDS SUMMARY | 2024-11-21 15:00 | XMS_ITS ---
Author Organization Mahad Haddad MD Address [address] [place] [phone] Care Team Providers Care Market Development Executive Name Role Phone Mahad Haddad Primary Care Provider REASON FOR VISIT last note Encounters Encounter Location Date Provider Diagnosis Mahad Haddad MD [address] [place] [id number] 09/28/2024 Mahad Haddad Plan Of Treatment Next Appt Details Provider Name:Mahad Jang iesandra, 02/26/2025 07:45:00 AM, [address] [facility], [address], [place], [phone], Provider Name:Mahad Jang ana cristina, 03/05/2025 09:30:00 AM, [address] [facility], [address], [place], [phone], Provider Name:Mahad Jang ier, 10/03/2025 11:00:00 AM, [address] [place] [address], [address], [place], [phone], Progress Notes * RACHAEL CARTERDOB:[birth year] (74 yo M)Acc No.[id number]:09/28/2024 Patient:?RACHAEL CARTER :1950???Age:74 Y???Sex:Male Address: [address], [place], [address] * true * Date:? Generated for Xena purdy/Adina/eTransmitting on:?11/21/2024 03:00 PM EDT
--- OUTSIDE RECORDS SUMMARY | 2024-11-21 15:00 | XMS_ITS ---
Author Organization Mahad Haddad MD Address [address] [place] [phone] Care Team Providers Care Leach Cell Operator Name Role Phone Mahad Haddad Primary Care [...] day for 30 days 08/29/2023 Active Pen [place] 33G X 4 MM as directed sq [...] Location Date Provider Diagnosis Mahad Haddad MD [address] [place] [id number] 09/28/2024 Mahad Haddad Type 2 diabetes mellitus [...] Name:Mahad de la paz, 02/26/2025 07:45:00 AM, [address] [place] [address], [address], [phone], Provider Name:Mahad de la paz, 03/05/2025 09:30:00 AM, [address] [place] [address], [address], [phone], Provider Name:Mahad de la paz, 10/03/2025 11:00:00 AM, [address] [place] [address], [address], [phone], Progress Notes * CHARLY CARTER:[birth year] (74 yo M)Acc No.[id number]:09/28/2024 Progress Note Patient:?RACHAEL CARTER Provider:?Mahad Haddad MD :1950???Age:74 Y???Sex:Male Alfie e:09/28/2024 Address: [address], [phone] Subjective: * Chief Complaints: * ???6 months DM, AWVAccompani ed by son * HPI: ???Annual Wellness Visit:?74 year old male presents with c/o of?Annual Wellness Visit , Annual Wellness Visit.?Medical / Social History Reviewed?The following items were reviewed and updated during today's visit?Past Medical History, [place] of Care, Surgical/Hospitalization History, Current medications including [...] 1 tablet Orally Once a day Pen [place] 33G X 4 MM Miscellaneous as directed [...] tablet Orally Once a day Taking Pen [place] 33G X 4 MM Miscellaneous as directed [...] day, 90days, 90, Refills 3.?? * Procedure Codes:?91311 ASSAY , GLUCOSE, BLOOD QUANT, Modifiers: QW [...] MD Date:?0 09/28/2024 Generated for Xena purdy/Adina/eTransmitting on:?11/21/2024 02:59 PM EDT History and Physical Notes * [...] updated during today's visit: Past Medical History, [place] of Care, Surgical/Hospitalization History, Current medications including [...]
--- OUTSIDE RECORDS SUMMARY | 2024-11-21 15:00 | XMS_ITS ---
Author Organization [facility] Address [address] [place] [address] Care Team Providers Care Fiber Optic Assembly Worker Name Role Phone Boo SIMS, Mahad Primary Care Provider Juancarlos Cohen [phone] Encounters Encounter Location Date Provider Diagnosis [facility] [address] [place] [address] 05/10/2024 Juancarlos Sher Plan Of Treatment No Information Progress Notes * RACHAEL AGUSTINDOB: (73 yo M)Acc No.[id number]:05/10/2024 Patient:?RAUL ELIZABETH HEALY :1950???Age:73 Y???Sex:Male Address:[address] [place] [address] * true * Date:? Generated for Xena purdy/Adina/eTransmitting on:?11/21/2024 03:00 PM EDT
== END 2024-11-21 13:31 | disposition home or self-care (01) ==
LOC: HO.HCS 12:41
PROVIDERS: PCP Internal Medicine; Visit Provider Internal Medicine
DX: R14.0 Abdominal distension (gaseous) (principal)
CPT/HCPCS: 99213

== ENCOUNTER 2024-11-21 13:27 | Outpatient (AMB) | payer OTHER, SELFPAY ==
--- NOTE | 2024-11-21 13:37 | MHC.OFFVIS ---
Intake Visit Reasons: belly distention Intake Note: Pt reports to the office per request of Dr. Moura for abdominal distention. Allergies No Known Allergies Allergy (Verified 11/21/24 13:39) Medication List - Last Reconciled 11/21/24 by Shai Torres RN aspirin 81 mg PO DAILY atorvastatin 40 mg PO DAILY buprenorphine-naloxone 2-0.5 mg (Suboxone) 1 film buccal DAILY carvedilol 6.25 mg PO BID finasteride 5 mg PO DAILY 90 days hydralazine 100 mg PO TID 90 days hydrochlorothiazide 25 mg PO DAILY insulin glargine (Lantus Solostar U-100 Insulin) 15 units (0.15 mL) subcut QAM 90 days losartan 50 mg PO DAILY meclizine 25 mg PO TID PRN metformin 500 mg PO DAILY omeprazole 20 mg PO BID OneTouch Verio Meter (blood-glucose meter) 3 times a day NS OneTouch Verio test strips (blood sugar diagnostic) 3 times a day NS pen needle, diabetic (BD Theresa 2nd Gen Pen Needle) once a day HPI Comments Details: 74-year-old male patient returning for evaluation of continued abdominal pain and distention. He was previously evaluated approximately 1 year ago for similar symptoms and reports that his symptoms continue. He reports nausea in the morning after eating and has a reduced appetite because of this. The pain located mainly in the epigastrium. He was moving his bowels on a daily basis but requires Metamucil to help. He denies any blood per rectum. He recently underwent colonoscopy by Dr. Sher which shows his previous colectomy anastomosis to be patent without evidence of recurrence. He previously underwent a right colectomy for colon cancer in 2005. He denies vomiting, fever or chills. 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 Surgical History Hx of inguinal hernia repair S/P placement of nerve stimulator Hx of surgical procedure Hx of cystoscopy Hx of lithotripsy Hx of right hemicolectomy Hx of colonoscopy (09/14/24) Hx of esophagogastroduodenoscopy Family History Father Unknown family medical history Mother Unknown family medical history Social History Are you a primary healthcare specialist to a significant other at home: No Do you presently have visiting nurse or other home services: No Alcohol intake: never Patient Tobacco Use Status: Never used Tobacco Second Hand Smoke Exposure: No Advance Directives Date on File: 09/08/14 Current occupational status: disabled 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 Well-healed incision in the periumbilical location Inspection: Yes distended and Yes incision (Midline incision periumbilical) Palpation (GI): Soft to palpation, Tenderness to palpation present (GI) in the epigastrum and periumbilically; with no rebound tenderness, no guarding, not rigid and no hernias Percussion: Yes tympanic to percussion Auscultation: normal bowel sounds Skin General skin exam: no rashes or lesions noted Neuro General: patient oriented x3 Extrem General: Yes no clubbing, cyanosis or edema Assessment & Plan Assessment & Plan (1) Abdominal distention: Code(s): R14.0 - Abdominal distension (gaseous) Category: Medical Plan 74-year-old male patient presenting with persistent abdominal distention and upper abdominal pain. On examination he was indeed distended with tympany to percussion. He is tender in the epigastric region but no palpable masses appreciated. There are no peritoneal signs. Previous CAT scan indicated dilated loops of small bowel suggestive of a partial small-bowel obstruction. I recommended repeating the CT with oral contrast to better evaluate for an area of narrowing possibly due to adhesions from his previous surgery. If this is indeed present, he may benefit from a lysis of adhesions. He will return following the CT to review the results and discuss treatment options. Orders: Orders CT abdomen pelvis wo IV con Today R14.0 - Abdominal distension (gaseous) Coding Level of Care Code Est Pt Level 3 (61435) Diagnoses Abdominal distention R14.0
--- OUTSIDE RECORDS SUMMARY | 2024-11-21 16:01 | XMS_ITS | Patient Health Record ---
Author Organization [facility] Address [address] [place] [address] Care Team Providers Care Acid Treater Name Role Phone Boo SIMS, Mahad Primary Care Provider Juancarlos Cohen Unavailable [phone] Allergies No Known Allergies Results Component Value Reference Range Notes Glucose, Whole Blood Reviewed date:09/14/2024 02:25:32 PM Interpretation: Performing Lab:[facility], [address] [place] [id number] Notes/Report: Glucose, Whole Blood 138 60-115 mg/dL METER # : [id number] Pathology (Not yet reviewed by provider) Interpretation: Performing Lab:[facility], [address] [place] [phone] Notes/Report: ---- Name: Rachael Agustin Age/Sex: 74/M : 1950 Unit#: [id number] Attend Dr: Juancarlos Sher MD Re09/14/24 Status : [facility] Location: [facility] Disch: ---- SPEC : [id number] RECD: 09/14/24 STATUS: TANI KAUFMAN NUM: [id number] KEYSHAWN: 09/14/2442 [facility] DR: Juancarlos Sher MD ENTERED: 09/14/24-10 [...] Rachael Agustin Age/Sex: 74/M : 1950 Unit#: [id number] Attend Dr: Juancarlos Sher MD Re09/14/24 Status : [facility] Location: [facility] Disch: ---- SPEC : [id number] RECD: 09/14/24 STATUS: TANI KAUFMAN NUM: [id number] KEYSHAWN: 09/14/24 [facility] DR: Juancarlos Sher MD ENTERED: 09/14/24- [...] microscopic examination, 4 pieces in cassette C2. [facility] Copies To: Mahad Haddad MD [facility] [address] [place] [address] Juancarlos Sher MD [facility] [address] [place], [place] [phone] ---- Signed (signature on file) Leora Krebs [...] 20 MG TAKE 1 CAPSULE BY [place] [facility] TWICE A DAY FOR [place] 90 for [...] Problem Status W/U Status Risk Notes Problem 822463449 Encounter for screening for malignant neoplasm of colon (Z12.11) Active confirmed Problem 544850142 History of adenomatous polyp of colon (Z86.010) Active confirmed Problem Abdominal bloating (833274056) Abdominal bloating (R14.0) Active confirmed Problem Diverticular disease of colon (694879654) Diverticulosis of large intestine without perforation or abscess without bleeding (K57.30) Active confirmed Problem History of malignant neoplasm of colon (166088234) Personal history of other malignant neoplasm of large intestine (Z85.038) Active confirmed Problem History of gastrointestinal tract bypass (427970290) Intestinal bypass and anastomosis status (Z98.0) Active confirmed Problem 463073738 Gastroesophageal reflux disease with esophagitis (K21.0) Active confirmed Problem 030047992 History of colon cancer (Z85.038) Active confirmed Problem Diverticulosis of colon (912160285) Diverticulosis of colon (K57.30) Active confirmed Problem 602972844 Gastroesophageal reflux disease with esophagitis without hemorrhage (K21.00) Active confirmed Vital Signs Temperature 97.5 degrees Fahrenheit 01/24/2024 Blood pressure diastolic 00 mm Hg 01/24/2024 Height 68.35 in 01/24/2024 Blood pressure systolic 000 mm Hg 01/24/2024 Weight 212 lb 6 oz lbs 01/24/2024 BMI 31.96 kg/m2 01/24/2024 Encounters Encounter Location Date Provider Diagnosis [facility] Outpatient [address] [place] [phone] 09/14/2024 Juancarlos Sher Colon cancer screeni ng Z12.11 ; Colon polyps K63.5 ; Personal history of other malignant neoplasm of large intestine Z85.038 ; Intestinal bypass and anastomosis status Z98.0 ; Diverticulosis of large intestine without perforation or abscess without bleeding K57.30 and Other hemorrhoids K64.8 [facility] [address] [place] [address] 01/24/2024 Juancarlos Sher History of colon can cer Z85.038 ; Abdominal bloating R14.0 ; History of adenomatous polyp of colon Z86.010 ; Encounter for screening for malignant neoplasm of colon Z12.11 ; Gastroesophageal reflux disease with esophagitis without hemorrhage K21.00 and Personal history of other malignant neoplasm of large intestine Z85.038 [facility] [address] [place] [address] 01/26/2024 Juancarlos Sher [facility] [address] [place] [address] 05/10/2024 Juancarlos Sher Assessments Encounter Date Diagnosis [...] I also recommended that he try some bfnf-blv-weps ter simethicone products regularly. I shall give [...] I also recommended that he try some xgps-wwp-fyvv ter simethicone products regularly. I shall give [...] I also recommended that he try some havv-vrh-ghdf ter simethicone products regularly. I shall give [...] I also recommended that he try some kzed-ntf-qfpu ter simethicone products regularly. I shall give [...] I also recommended that he try some ksgv-jcr-lipa ter simethicone products regularly. I shall give [...] I also recommended that he try some yvtu-qxn-ntmp ter simethicone products regularly. I shall give [...] Insured Coverage Start Date Coverage End Date [facility] [address] [address] [place] [address] [id number] RAULRACHAEL HUANG Self - patient is the [...] in 2006 Internal hemorrhoids IDDM HTN Denies AR,CVA,Lung disease,renal disease EGD in 04/2011 with erosive esophagitis a nd HH-no Linn's esophagus Hyperlipidemia Colonoscopy in 05/2018 with removal of a tubular adenoma SBO in 02/2020 treated with NG tube--no s urgery Kidney stones Colonoscopy May 2021 Romero ited prep and one small polyp removed but not recovered for pathology Surgical History Surgery Date(Month/Year) Right colectomy for colon cancer as per [facility] Right inguinal hernia 2022-Dr. Schulz Stimulator put in back
--- OUTSIDE RECORDS SUMMARY | 2024-11-21 16:01 | XMS_ITS | Clinical Summary ---
Author Organization [facility] Address [address] [place] [address] Phone Care Team Providers Care Wide Area Network Systems Administrator Name Role Phone Mahad Haddad MD Primary Care Provider [phone] Allergies No known active allergies Medications acarbose [...] patient's age to complete this topic Insurance [facility] [place] [address] [facility] Medicare Care Teams Wide Area Network Systems Administrator Relationship Specialty Start Date End Date Mahad Haddad MD [address] [place] PCP - General 08/18/20
== END 2024-11-21 13:43 | disposition home or self-care (01) ==
LOC: HO.HGS 13:27
PROVIDERS: PCP Internal Medicine; Visit Provider Surgery
DX: R14.0 Abdominal distension (gaseous) (principal)
CPT/HCPCS: 99213

== ENCOUNTER 2024-12-20 16:32 | Outpatient (REF) | payer MEDICARE, SELFPAY | END 2024-12-20 16:33 | disposition home or self-care (01) | LOC: HO.CT 16:32 | PROVIDERS: PCP Internal Medicine; Visit Provider Orthopaedic Surgery | DX: Z13.89 Encounter for screening for other disorder (principal) ==

== ENCOUNTER 2025-02-04 14:48 | Outpatient (REF) | payer MEDICARE, SELFPAY ==
--- OUTSIDE RECORDS SUMMARY | 2024-11-02 15:43 | XMS_ITS ---
Author Organization Mahad Haddad MD Address [address] [place] [phone] Support Name Relationship Address Phone Boo Mahad Caregiver [address] [facility] [address] [place] [address] [phone] Maldonado Mota Caregiver [address] [facility] [address] [place] [phone] NoraAnderscris Caregiver [address] [facility] [address] [place] [address] [phone] MARSHA COOLEY Caregiver [address] [facility] [address] [place] [address] [phone] Candido Rodriguez Caregiver [address] [facility] [address] [place] [address] [phone] KIKI POLANCO Caregiver [address] [facility] [address] [place] [address] [phone] Erik Vaz Caregiver [address] [facility] [address] [place], [place] [phone] Jennifer Ji Caregiver [facility] [address] [place] [address] [phone] KRISTINA CARTER Emergency Contact [address] [place] [address] RACHAEL CARTER Guarantor Unknown Care Team Providers Care Interlacer Name Role Phone Mahad Haddad Primary Care Provider REASON FOR VISIT ER Encounters Encounter Location Date Provider Diagnosis Mahad Haddad MD [address] [facility] [address] [place], [place] [phone] 11/02/2024 Mahad Haddad Plan Of Treatment Next Appt Details Provider Name:Mahad de la paz, 02/26/2025 07:45:00 AM, [address], [address], [place], [phone], Provider Name:Mahad Jang ana cristina, 03/05/2025 09:30:00 AM, [address] [facility], [address], [place], [phone], Provider Name:Mahad Jang shaileshr, 10/03/2025 11:00:00 AM, [address] [facility], [address], [place], [phone], Progress Notes * RACHAEL CARTERDOB:[birth year] (74 yo M)Acc No.[id number]:11/02/2024 Patient: RACHAEL KONG :1950 A ge:74 Y S ex:Male Address: [address], [place], [address] * true * Date: Generated for Xena purdy/Adina/eTwilmersmitting on: 0 02/04/2025 03:16 PM EDT
--- OUTSIDE RECORDS SUMMARY | 2024-11-10 04:55 | XMS_ITS ---
Author Organization [facility] Address [address] [place] [phone] Care Team Providers Care Event Marketing Intern Name Role Phone Boo SIMS, Mahad Primary Care Provider Juancarlos Cohen [phone] REASON FOR VISIT hx colon ca,screening,hx polyps Encounters Encounter Location Date Provider Diagnosis [facility] [address] [place] [phone] 11/10/2024 Juancarlos Sher Plan Of Treatment No Information Progress Notes * RACHAEL AGUSTINDOB: (74 yo M)Acc No.[id number]:11/10/2024 COLON WITH MAC Patient: Gwen BLISS RACHAEL HEALY Provider: William Sher MD :1950 A ge:74 Y S ex:Male Date:11/10/2024 Address:[address], [id number] Pcp:Mahad Haddad MD Subjective: * Chief Complaints: [...] 11/10/2024 Generated for Printi ng/Faxing/eTransmitting on: 0 02/04/2025 03:16 PM EDT
--- NOTE | ~2025-02-04 | US_ITS ---
EXAMINATION: US EXTRACRANIAL CAROTID DUPLEX, BILATERAL CLINICAL INFORMATION: Dizziness. Giddiness. COMPARISON: Correlated to CT angiogram head and neck dated January 30, 2024. TECHNIQUE: Real-time ultrasound and Doppler techniques (integrating B-mode 2-D vascular images, Doppler spectral analysis and color-flow Doppler imaging) were utilized to interrogate the extracranial carotid arteries, the vertebral arteries and proximal subclavian arteries bilaterally. The degree of stenosis is determined by criteria similar to NASCET. FINDINGS: Right Side: 1. There is no atherosclerotic plaque seen in the bifurcation/proximal ICA region. 2. The common carotid artery PSV proximally is 112 cm/s and distally 82 cm/s. 3. The proximal internal carotid artery velocities are 66 cm/s systolic and 18 cm/s diastolic. 4. The proximal external carotid artery PSV is 77 cm/s. 5. The vertebral artery shows antegrade flow. 6. The subclavian artery waveforms are triphasic. ICA/CC ratio: 0.6. Left Side: 1. There is smooth and calcified atherosclerotic plaque seen in the bifurcation/proximal ICA region. 2. The common carotid artery PSV proximally is 98 cm/s and distally 107 cm/s. 3. The proximal internal carotid artery velocities are 119 cm/s systolic and 24 cm/s diastolic. 4. The proximal external carotid artery PSV is 120 cm/s. 5. The vertebral artery shows antegrade flow. 6. The subclavian artery waveforms are triphasic. ICA/CC ratio: 1.1. US/US carotid duplex BI IMPRESSION: 1. RIGHT: No hemodynamically significant stenosis by ultrasound criteria. No gross plaque. 2. LEFT: Small calcified plaque. 0-49% stenosis by ultrasound criteria. 3. There is no change in the category severity of disease when compared to the previous study dated . Electronically signed by: Unruly Estes MD 02/04/2025 03:54 PM EDT
--- OUTSIDE RECORDS SUMMARY | 2025-02-04 15:16 | XMS_ITS | Clinical Summary ---
Author Organization [facility] Address [address] [place] [address] Phone Care Team Providers Care Field Logistics Coordinator Name Role Phone Mahad Haddad MD Primary Care Provider [phone] Allergies No known active allergies Medications acarbose [...] Vaccine: 50+ Years (2 of 2 - PPSV23, PCV20, or PCV21) 04/02/2019 02/05/2019, 02/05/2019 Diabetes: Hemoglobin A1C 09/09/2021 [...] patient's age to complete this topic Insurance [id number] Medicare [facility] Medicare Care Teams Field Logistics Coordinator Relationship Specialty Start Date End Date Mahad Haddad MD [id number] [place] PCP - General 08/18/20
== END 2025-02-04 14:49 | disposition home or self-care (01) ==
LOC: HO.US 14:48
PROVIDERS: PCP Internal Medicine; Visit Provider Internal Medicine
DX: R42 Dizziness and giddiness (principal)
CPT/HCPCS: 93880

== ENCOUNTER → 2025-02-04 15:24 | Outpatient (BNV) | payer MEDICARE, SELFPAY | PROVIDERS: PCP Internal Medicine; Visit Provider Radiology Diagnostic Radiology | DX: I65.22 Occlusion and stenosis of left carotid artery (principal) | CPT/HCPCS: 93880 ==

== ENCOUNTER 2025-02-12 14:31 | Outpatient (REF) | payer MEDICARE, SELFPAY ==
--- OUTSIDE RECORDS SUMMARY | 2024-11-02 15:43 | XMS_ITS ---
Author Organization Mahad Haddad MD Address [address] [place] [phone] Care Team Providers Care Portable Power Tool Repairer Name Role Phone Mahad Haddad Primary Care Provider REASON FOR VISIT ER Encounters Encounter Location Date Provider Diagnosis Mahad Haddad MD [address] [facility] [address] [place], [place] [phone] 11/02/2024 Mahad Haddad Plan Of Treatment Next Appt Details Provider Name:Mahad de la paz, 02/26/2025 07:45:00 AM, [address], [address], [place], [phone], Provider Name:Mahad Jang ana cristina, 03/05/2025 09:30:00 AM, [address] [facility], [address], [place], [phone], Provider Name:Mahad Jang shaileshr, 10/03/2025 11:00:00 AM, [address] [facility], [address], [place], [phone], Progress Notes * RACHAEL CARTERDOB:[birth year] (74 yo M)Acc No.[id number]:11/02/2024 Patient: RACHAEL KONG :1950 A ge:74 Y S ex:Male Address: [address], [place], [address] * true * Date: Generated for Xena purdy/Adina/eTwilmersmitting on: 0 02/12/2025 03:23 PM EDT
--- OUTSIDE RECORDS SUMMARY | 2024-11-10 04:55 | XMS_ITS ---
Author Organization [facility] Address [address] [place] [phone] Care Team Providers Care Fish Agent Name Role Phone Boo SIMS, Mahad Primary Care Provider Juancarlos Cohen [phone] REASON FOR VISIT hx colon ca,screening,hx polyps Encounters Encounter Location Date Provider Diagnosis [facility] [address] [place] [phone] 11/10/2024 Juancarlos Sher Plan Of Treatment No Information Progress Notes * RACHAEL AGUSTINDOB: (74 yo M)Acc No.[id number]:11/10/2024 COLON WITH MAC Patient: Gwen BLISS RACHAEL HEALY Provider: William Sher MD :1950 A ge:74 Y S ex:Male Date:11/10/2024 Address:[address], [place] Pcp:Mahad Haddad MD Subjective: * Chief Complaints: [...] 11/10/2024 Generated for Printi ng/Faxing/eTransmitting on: 0 02/12/2025 03:23 PM EDT
--- NOTE | ~2025-02-12 | CT_ITS ---
EXAMINATION: CT ABDOMEN AND PELVIS WITHOUT IV CONTRAST CLINICAL INFORMATION: R14.0 - Abdominal distension (gaseous) COMPARISON: November 03, 2023 TECHNIQUE: Multidetector volumetric imaging was performed from the superior aspect of the liver through the pubic symphysis with oral contrast. Sagittal and coronal reformatted images were obtained on the technologist's workstation. This CT examination was performed using dose optimization techniques as appropriate, variously including the following: *Automated exposure control *Adjustment of mA and/or kV according to patient size (this includes techniques or standardized protocols for targeted exams where dose is matched to indication/reason for exam; i.e. extremities or head) *Use of iterative reconstruction technique DLP: 594 mGY*cm FINDINGS: LUNG BASES: Minimal linear scarring or atelectasis is present in the medial right lung base. LIVER, GALLBLADDER, AND BILIARY TREE: The liver is normal in size, shape, and attenuation. No focal hepatic lesion or biliary ductal dilatation is present. The gallbladder is unremarkable with no evidence of radiopaque gallstones, gallbladder wall thickening, or obvious pericholecystic inflammatory changes. PANCREAS: Unremarkable. SPLEEN: Unremarkable. ADRENAL GLANDS: Unremarkable. KIDNEYS AND URETERS: Again seen are stones in the left kidney, up to 4. The largest is in the lower pole and measured 4 mm, unchanged. BLADDER: Unremarkable. GASTROINTESTINAL TRACT: Again noted is postsurgical change with right hemicolectomy and anastomosis in the right midabdomen that is widely patent. Also again noted is compressed distal small bowel measuring 8 cm in length. Proximal to this decompressed section of bowel, distal small bowel loops are dilated with fecalized content (axial series #3 image [id number]). Oral contrast has not propagated into this section of bowel. There is oral contrast in the jejunum and proximal and mid ileum. ABDOMINAL WALL: Small left inguinal hernia contains adipose tissue. Very small fat-containing inguinal hernia is also seen on the right. Unchanged LYMPH NODES: Normal. VASCULAR: Unremarkable. PELVIC VISCERA: Unremarkable. OSSEOUS STRUCTURES: Neural stimulator device is present with electrodes terminating near bilateral L4-5 neural foramina. Wires terminate in the superficial subcutaneous soft tissues without a generator there are surgical clips where the generator was likely removed posterior to L2-3 and L4-5. CT/CT abdomen pelvis wo IV con IMPRESSION: Chronic distal small bowel obstruction with fecalized content. The distal ileum contains fecalized material. The distal 8 -10 cm of ileum is decompressed. There is no dilation of the jejunum and proximal and mid ileum. Right hemicolectomy with widely patent anastomosis. Stable left renal stones. Abandoned neurostimulator wires and leads at L4-5. Fleischner guidelines were followed. Electronically signed by: Nilesh Salmeron MD 02/12/2025 05:24 PM EDT
--- OUTSIDE RECORDS SUMMARY | 2025-02-12 15:23 | XMS_ITS | Clinical Summary ---
Author Organization [facility] Address [address] [facility] [place] [address] Phone Care Team Providers Care Component Design Engineer Name Role Phone Mahad Haddad MD Primary [...] Visual Foot Exam 09/09/2021 Influenza Vaccine (#1) 2025 06/11/2012 Pneumococcal Vaccine: Peds (0 to 5 Years) and At-Risk Patients (6 to 49 Years) Discontinued 02/05/2019, 02/05/2019 Hepatitis B Vaccine Aged Out No longe r eligible based on patient's age to complete this topic Insurance [id number] Medicare [facility] Medicare Care Teams Component Design Engineer Relationship Specialty Start Date End Date Mahad Haddad MD [id number] [place] PCP - General 08/18/20
[2025-02-12] MEDS: Barium Sulfate Oral (Mocha) 450 ML ORAL.SUSP 900 ML PO (16:48)
== END 2025-02-12 14:32 | disposition home or self-care (01) ==
LOC: HO.CT 14:31
PROVIDERS: PCP Internal Medicine; Visit Provider Surgery
DX: R14.0 Abdominal distension (gaseous) (principal)
CPT/HCPCS: 74176

== ENCOUNTER → 2025-02-12 14:33 | Outpatient (BNV) | payer MEDICARE, SELFPAY | PROVIDERS: PCP Internal Medicine; Visit Provider Radiology Diagnostic Radiology | DX: K56.690 Other partial intestinal obstruction (principal) | CPT/HCPCS: 74176 ==

== ENCOUNTER 2025-02-26 10:03 | Outpatient (REF) | payer MEDICARE, SELFPAY ==
--- OUTSIDE RECORDS SUMMARY | 2024-11-10 04:55 | XMS_ITS ---
Author Organization [facility] Address [address] [place] [address] Care Team Providers Care Can Technician Name Role Phone Boo SIMS, Mahad Primary Care Provider Juancarlos Cohen [phone] REASON FOR VISIT hx colon ca,screening,hx polyps Encounters Encounter Location Date Provider Diagnosis [facility] [address] [place] [phone] 11/10/2024 Juancarlos Sher Plan Of Treatment No Information Progress Notes * RACHAEL AGUSTINDOB: (74 yo M)Acc No.[id number]:11/10/2024 COLON WITH MAC Patient: Gwen BLISS RACHAEL HEALY Provider: William Sher MD :1950 A ge:74 Y S ex:Male Date:11/10/2024 Address:[address], [id number] Pcp:Mahad Haddad MD Subjective: * Chief Complaints: [...] 11/10/2024 Generated for Printi ng/Faxing/eTransmitting on: 0 02/26/2025 11:04 AM EDT
--- OUTSIDE RECORDS SUMMARY | 2025-02-26 03:45 | XMS_ITS ---
Author Organization Mahad Haddad MD Address [address] [place] [address] [phone] Support Name Relationship Address Phone BooRocíon Caregiver 10 [facility] ve [address] [place] [address] [phone] Svetlana Maldonado Caregiver 10 [facility] e [address] [place] [address] [phone] NoraLeanamary Caregiver 10 [facility] e [address] [place] [address] [phone] MARSHA COOLEY Caregiver 10 [facility] e [address] [place] [address] [phone] Candido Rodriguez Caregiver 10 [facility] ve [address] [place] [address] [phone] KIKI POLANCO Caregiver [address] [facility] [address] [place] [address] [phone] Erik Vaz Caregiver 10 [facility] sherman [address] [place] [address] [phone] Jennifer Ji Caregiver 10 [facility] ve [address] [place] [address] [phone] KRISTINA CARTER Emergency Contact 8 [place] [address] RACHAEL CARTER Guarantor Unknown [phone] Care Team Providers Care Apartment Assistant Manager Name Role Phone Mahad Haddad Primary Care Provider [phone] REASON FOR VISIT yearly fasting labs Encounters Encounter Location Date Provider Diagnosis Mahad Haddad MD [address] [place] [address] [phone] 02/26/2025 Mahad Haddad Blood tests for rout [...] Date Complete Blood Count Auto Diff Comprehensive [place]. Panel Fast 5 Lipid Panel 02/26/2025 PSA,Total (Free>4and<10) 02/26/2025 Microalbumin, Random 02/26/2025 Hemoglobin A1c 02/26/2025 UA ClnCatch+Micro w/rflx Cult 02/26/2025 Next Appt Details Provider Name:Mahad de la paz, 03/05/2025 09:30:00 AM, [address] [place] [address], [address] [place] [address], [phone], Provider Name:Mahad de la paz, 10/03/2025 11:00:00 AM, [address] [place] [address], Suite [facility], [place], [place], [phone], Progress Notes * RACHAEL CARTERDOB:[birth year] (74 yo M)Acc No.[id number]:02/26/2025 Progress Note Patient: RACHAEL KONG Provider: Damion Haddad MD :1950 A ge:74 Y S ex:Male Date:02/26/2025 [address] [place] [id number] Subjective: * Chief Complaints: * 1 . [...] Blood Count Auto Diff L AB: Comprehensive [place]. Panel Fast L AB: Lipid Panel L AB: PSA,Total (Free>4and<10) L AB: Microalbumin, Random L AB: Hemoglobin A1c L AB: UA ClnCatch+Micro w/rflx Cult 3. T ype 2 diabetes mellitus without complication L AB: Complete Blood Count Auto Diff L AB: Comprehensive [place]. Panel Fast L AB: Lipid Panel L AB: PSA,Total (Free>4and<10) L AB: Microalbumin, Random L AB: Hemoglobin A1c L AB: UA ClnCatch+Micro w/rflx Cult 4. P rostatism L AB: Complete Blood Count Auto Diff L AB: Comprehensive [place]. Panel Fast L AB: Lipid Panel L AB: PSA,Total (Free>4and<10) L AB: Microalbumin, Random L AB: Hemoglobin A1c L AB: UA ClnCatch+Micro w/rflx Cult 5. P ure hypercholesterolemia L AB: Complete Blood Count Auto Diff L AB: Comprehensive [place]. Panel Fast L AB: Lipid Panel L AB: PSA,Total (Free>4and<10) L AB: Microalbumin, Random L AB: Hemoglobin A1c L AB: UA ClnCatch+Micro w/rflx Cult * * The named appointment provid er may or may not be the originator of this progress note, and it is not deemed complete until electronically signed by the appointment provider. Sign off status: Pending * Provider: Damion Haddad MD Date: 02/26/2025 Generated for Xena purdy/Adina/Wesleyitting on: 02/26/2025 11:04 AM EDT
[2025-02-26 10:08] LABS: MANUAL DIFF FLAG NO
[2025-02-26 10:20] LABS: Appearance Urine Clear; Glucose Urine UA Negative (Negative); PH 8.5 (5.0-9.0); Specific Gravity - Urine 1.015 (1.005-1.025)
[2025-02-26 10:26] LABS: Hematocrit 36.3 % (42.0-52.0); Hemoglobin 11.8 g/dl (14.0-18.0); Imm Gran Abs Auto 0.03 X10*3/uL (0.00-0.03); Imm Gran Pct Auto 0.3 % (0.0-0.4); Lymphocytes Absolute Auto 1.5 X10*3/uL (1.2-4.9); Mean Corpuscular HGB Conc 32.5 g/dl (31.0-36.0); Mean Corpuscular Hemoglobin 27.4 pg (27.0-33.0); Mean Corpuscular Volume 84.2 fL (80.0-98.0); NRBC Abs Auto 0.000 X10*3/uL (0.0-0.012); NRBC Pct Auto 0.0 /100WBC (0.0-0.2); Platelet Count 256 X10*3/uL (160-400); Red Blood Count 4.31 X10*6/uL (4.60-5.80); White Blood Count 9.1 X10*3/uL (4.8-10.8)
[2025-02-26 10:41] LABS: Hemoglobin A1C 208.2114 umol/L; Total Hemoglobin (HGBA1C) 3118.1158 umol/L
[2025-02-26 10:42] LABS: Alanine Aminotransferase 33 U/L (0-40); Albumin Level 4.1 g/dL (3.5-5.0); Alkaline Phosphatase 80 U/L (39-117); Anion Gap 10 (12-20); Aspartate Amino Transferase 30 U/L (5-37); Blood Urea Nitrogen 8 mg/dL (9-16); Calcium 8.9 mg/dL (8.4-10.2); Carbon Dioxide 29 mmol/L (22-29); Chloride 105 mmol/L (96-108); Cholesterol 122 mg/dL (<200); Estimated Glomerular Filt Rate > 60; HDL Cholesterol 63 mg/dL (>40); Potassium 4.1 mmol/L (3.3-5.1); Sodium 140 mmol/L (135-145); Total Protein 6.8 g/dL (6.5-8.0); Triglycerides 50 mg/dL (<150)
[2025-02-26 10:58] LABS: Microalbum/Creatinine Ratio Ur 12.2 ug/mg cr (<30); PSA,Total (Free>4and<10) 1.97 ng/mL (0.00-4.00)
--- OUTSIDE RECORDS SUMMARY | 2025-02-26 11:04 | XMS_ITS | Clinical Summary ---
Author Organization [facility] Address [address] [place] [address] [facility] [place] [address] Phone Care Team Providers Care Radiation Officer Name Role Phone Mahad Haddad MD Primary [...] patient's age to complete this topic Insurance [id number] Medicare [facility] Medicare Care Teams Radiation Officer Relationship Specialty Start Date End Date Mahad Haddad MD [id number] [place] PCP - General 08/18/20
== END 2025-02-26 10:04 | disposition home or self-care (01) ==
LOC: HO.LNP 10:03
PROVIDERS: Visit Provider Internal Medicine
DX: Z00.00 Encounter for general adult medical examination without abnormal findings (principal); I10 Essential (primary) hypertension; E11.9 Type 2 diabetes mellitus without complications; N40.0 Benign prostatic hyperplasia without lower urinary tract symptoms; E78.00 Pure hypercholesterolemia, unspecified; Z12.5 Encounter for screening for malignant neoplasm of prostate
CPT/HCPCS: 80053; 80061; 81001; 82043; 82570; 83036; 84153; 85025

== ENCOUNTER 2025-03-07 13:41 | Outpatient (AMB) | payer MEDICARE, SELFPAY ==
--- OUTSIDE RECORDS SUMMARY | 2025-02-26 03:45 | XMS_ITS ---
Author Organization Mahad Haddad MD Address [address] [place] [address] [phone] Care Team Providers Care Commissioner Of Relocation Services Name Role Phone Mahad Haddad Primary Care Provider REASON FOR VISIT yearly fasting labs Encounters Encounter Location Date Provider Diagnosis Mahad Haddad MD [address] [place] [address] [phone] 02/26/2025 Mahad Haddad Blood tests for rout [...] Date Complete Blood Count Auto Diff Comprehensive [place]. Panel Fast Lipid Panel 02/26/2025 PSA,Total (Free>4and<10) 02/26/2025 Microalbumin, Random 02/26/2025 Hemoglobin A1c 02/26/2025 UA ClnCatch+Micro w/rflx Cult 02/26/2025 Next Appt Details Provider Name:Mahad de la paz, 08/30/2025 07:30:00 AM, [address] [place] [address], [address] [place] [address], [phone], Provider Name:Mahad de la paz, 09/05/2025 09:00:00 AM, [address] [place] [address], [address], [phone], Provider Name:Mahad de la paz, 10/03/2025 11:00:00 AM, [address] [place] [address], [address], [phone], Provider Name:Mahad de la paz, 02/27/2026 07:45:00 AM, [address] [place] [address], [address], [phone], Provider Name:Mahad de la paz, 03/06/2026 09:30:00 AM, [address] [place] [address], [address], [phone], Progress Notes * CHARLY CARTER:[birth year] (74 yo M)Acc No.[id number]:02/26/2025 Progress Note Patient: RACHAEL KONG Provider: Damion Haddad MD :1950 A ge:74 Y S ex:Male Date:02/26/2025 Address: [address], [id number] Subjective: * Chief Complaints: * 1 . [...] Blood Count Auto Diff L AB: Comprehensive [place]. Panel Fast L AB: Lipid Panel L AB: PSA,Total (Free>4and<10) L AB: Microalbumin, Random L AB: Hemoglobin A1c L AB: UA ClnCatch+Micro w/rflx Cult 3. T ype 2 diabetes mellitus without complication L AB: Complete Blood Count Auto Diff L AB: Comprehensive [place]. Panel Fast L AB: Lipid Panel L AB: PSA,Total (Free>4and<10) L AB: Microalbumin, Random L AB: Hemoglobin A1c L AB: UA ClnCatch+Micro w/rflx Cult 4. P rostatism L AB: Complete Blood Count Auto Diff L AB: Comprehensive [place]. Panel Fast L AB: Lipid Panel L AB: PSA,Total (Free>4and<10) L AB: Microalbumin, Random L AB: Hemoglobin A1c L AB: UA ClnCatch+Micro w/rflx Cult 5. P ure hypercholesterolemia L AB: Complete Blood Count Auto Diff L AB: Comprehensive [place]. Panel Fast L AB: Lipid Panel L [...] Pending * Provider: Damion Haddad MD Date: 02/26/2025 Generated for Xena purdy/Adina/Aide on: 03/07/2025 01:54 PM EDT
--- OUTSIDE RECORDS SUMMARY | 2025-03-07 13:55 | XMS_ITS | Clinical Summary ---
Author Organization [facility] Address [address] [place] [address] Phone Care Team Providers Care Director Of Admissions Name Role Phone Mahad Haddad MD Primary [...] patient's age to complete this topic Insurance [id number] Medicare [facility] [place] [address] Care Teams Director Of Admissions Relationship Specialty Start Date End Date Mahad Haddad MD [id number] [place] PCP - General 08/18/20
--- NOTE | 2025-03-07 13:56 | MHC.OFFVIS ---
Vital Signs 03/07/25 14:02 Height 5 ft 7 in Weight 214 lb BMI 33.5 BP 186/99 H Blood Pressure Location Lt brachial Position Sitting Pulse 70 Intake Visit Reasons: CT scan results, following abdominal distention Intake Note: Patient is seen in office for CT scan results, following abdominal distention. Pt c/o: admits to feeling bloated after meals, here for CT results CT:02/22/25 Gem Technician Required: No Accompanied by: Other Relationship Allergies No Known Allergies Allergy (Verified 03/07/25 14:02) HPI Comments Details: 74-year-old male patient returning to review his recent CT abdomen and pelvis for abdominal pain. Since his last visit he reports his abdominal pain is much improved. He is eating well in his bowels are moving on a regular basis. His appetite has improved as well. CT abdomen and pelvis does reveal evidence of narrowing of the bowel with fecalization above the area of narrowing. The anastomosis is open without stricture. The images were reviewed with the patient and his son. As previously noted he underwent a right colectomy for colon cancer in 2005. [facility] Medical History Right groin pain Right inguinal hernia On beta lala at home Hx SBO DM2 (diabetes mellitus, type 2) Disc degeneration, lumbar Chronic pain syndrome Spondylosis of lumbosacral spine with radiculopathy GERD (gastroesophageal reflux disease) Obesity (BMI 30-39.9) Hypertension 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 associated with type 2 diabetes mellitus senior care (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 Surgical History Hx of inguinal hernia repair S/P placement of nerve stimulator Hx of surgical procedure Hx of cystoscopy Hx of lithotripsy Hx of right hemicolectomy Hx of colonoscopy (09/14/24) Hx of esophagogastroduodenoscopy Family History Father Unknown family medical history Mother Unknown family medical history Social History Are you a primary home care companion to a significant other at home: No Do you presently have visiting nurse or other home services: No Alcohol intake: never Patient Tobacco Use Status: Never used Tobacco Second Hand Smoke Exposure: No Advance Directives Date on File: 09/08/14 Current occupational status: disabled 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 Well-healed incision in the periumbilical location Inspection: Yes distended and Yes incision (Midline incision periumbilical) Palpation (GI): Soft to palpation, nontender, no guarding, not rigid and no hernias Percussion: Yes normal to percussion Auscultation: normal bowel sounds Skin General skin exam: no rashes or lesions noted Neuro General: patient oriented x3 Extrem General: Yes no clubbing, cyanosis or edema Assessment & Plan Assessment & Plan (1) Partial small bowel obstruction: Code(s): K56.600 - Partial intestinal obstruction, unspecified as to cause Category: Medical Plan 74-year-old male patient with a recent history of abdominal pain found on CT to have evidence of a partial small-bowel obstruction. There was areas of narrowing of the small bowel proximal to the ileo colonic anastomosis. This has presumably due to adhesions from the previous colon surgery. The patient is currently feeling much improved with no abdominal pain tolerating a regular diet and having normal bowel movements. No surgical intervention is recommended at this time however should his symptoms return, consideration would be given to exploratory laparotomy with lysis of adhesions. He expressed understanding and agrees with the plan. Coding Level of Care Code Est Pt Level 3 (26438) Diagnoses Partial small bowel obstruction K56.600
[2025-03-07 14:02] VITALS: BP 186/99; PULSE 70; BMI 33.5
== END 2025-03-07 14:09 | disposition home or self-care (01) ==
LOC: HO.HGS 13:42
PROVIDERS: PCP Internal Medicine; Visit Provider Surgery
DX: K56.600 Partial intestinal obstruction, unspecified as to cause (principal)
CPT/HCPCS: 99213

== ENCOUNTER → 2025-03-07 13:41 | Outpatient (BNVA) | payer MEDICARE, SELFPAY | PROVIDERS: PCP Internal Medicine; Visit Provider Surgery | DX: K56.600 Partial intestinal obstruction, unspecified as to cause (principal) | CPT/HCPCS: 99212 ==

== ENCOUNTER 2025-04-18 12:09 | Outpatient (REF) | payer MEDICARE, SELFPAY ==
--- OUTSIDE RECORDS SUMMARY | 2024-09-14 04:30 | XMS_ITS ---
Author Organization [facility] Address [address] [place] [address] Care Team Providers Care Sales Marketing Coordinator Name Role Phone Boo SIMS, Mahad Primary Care Provider Juancarlos Cohen [phone] REASON FOR VISIT 2 day prep, colon screening Problems Problem Type SNOMED Code ICD Code Onset Dates Problem Status W/U Status Risk Notes Problem History of gastrointestinal tract bypass (704361554) Intestinal bypass and anastomosis status (Z98.0) Active confirmed Problem Diverticular disease of colon (096772267) Diverticulosis of large intestine without perforation or abscess without bleeding (K57.30) Active confirmed Encounters Encounter Location Date Provider Diagnosis [facility] [place] Outpatient [address] [place], [place] [phone] 09/14/2024 Juancarlos Sher Colon cancer scree geeta [...] Notes * RACHAEL AGUSTINDOB: (74 yo M)Acc No.[id number]:09/14/2024 COLON WITH MAC Patient: RACHAEL HEWITT Provider: William Sher MD :1950 A ge:74 Y S ex:Male Date:09/14/2024 Address: [address], [place], [facility] Pcp:Mahad Haddad MD Subjective: * Chief Complaints: [...] 09/14/2024 Generated for Xena purdy/Adina/Wesleyitting on: 0 04/18/2025 04:22 PM EDT
--- OUTSIDE RECORDS SUMMARY | 2024-11-10 04:55 | XMS_ITS ---
Author Organization [facility] Address [address] [place] [phone] Care Team Providers Care Laser Beam Cutter Name Role Phone Boo SIMS, Mahad Primary Care Provider Juancarlos Cohen [phone] REASON FOR VISIT hx colon ca,screening,hx polyps Encounters Encounter Location Date Provider Diagnosis [facility] [address] [place] [phone] 11/10/2024 Juancarlos Sher Plan Of Treatment No Information Progress Notes * RACHAEL AGUSTINDOB: (74 yo M)Acc No.[id number]:11/10/2024 COLON WITH MAC Patient: Gwen BLISS RACHAEL HEALY Provider: William Sher MD :1950 A ge:74 Y S ex:Male Date:11/10/2024 Address:[address], [id number] Pcp:Mahad Haddad MD Subjective: * Chief Complaints: [...] 11/10/2024 Generated for Printi ng/Faxing/eTransmitting on: 0 04/18/2025 04:22 PM EDT
--- OUTSIDE RECORDS SUMMARY | 2024-12-18 05:31 | XMS_ITS ---
Author Organization Mahad Haddad MD Address [address] [place] [address] [phone] Care Team Providers Care Bias Binding Folder Name Role Phone Mahad Haddad Primary Care [...] Location Date Provider Diagnosis Mahad Haddad MD [address] [place] [address] [phone] 12/18/2024 Mahad Haddad Type 2 diabetes mellitus [...] HCl 500 MG TAKE 1 TABLET BY [place] UT TWICE A DAY WITH MEALS Orally Once a day for 90 days Next Appt Details Provider Name:Mahad de la paz, 08/30/2025 07:30:00 AM, [address] [place] [address], [address], [phone], Provider Name:Mahad de la paz, 09/05/2025 09:00:00 AM, [address] [place] [address], [phone], Provider Name:Mahad de la paz, 10/03/2025 11:00:00 AM, [address] [place] [address], [address], [phone], Provider Name:Mahad de la paz, 02/27/2026 07:45:00 AM, [address] [place] [address], [phone], Provider Name:Mahad de la paz, 03/06/2026 09:30:00 AM, [address] [place] [address], [phone], Progress Notes * RACHAEL CARTERDOB:[birth year] (74 yo M)Acc No.[id number]:12/18/2024 Patient: RACHAEL KONG :1950 A ge:74 Y S ex:Male Address: [place], [address] * Refills Refill Atorvastatin Calcium Tablet, 40 MG, Orally, 90, TAKE 1 TABLET BY MOUTH EVERY DAY, Once a day, 90 days, Refills=3 Refill metFORMIN HCl Tablet, 500 MG, Orally, 180, TAKE 1 TABLET BY MOUTH TWICE A DAY WITH MEALS, Once a day, 90 days, Refills=3 * true * Date: Generated for Xena purdy/Adina/Aide on: 0 04/18/2025 04:23 PM EDT
--- OUTSIDE RECORDS SUMMARY | 2024-12-27 07:44 | XMS_ITS ---
Author Organization Mahad Haddad MD Address [address] [place] [phone] Care Team Providers Care Apprentice Lineman Third Step Name Role Phone Mahad Haddad Primary Care Provider [phone] REASON FOR VISIT Carotid US due . Encounters Encounter Location Date Provider Diagnosis Mahad Haddad MD [address] [place], [place] [phone] 12/27/2024 Mahad Haddad Plan Of Treatment Next Appt Details Provider Name:Mahad Jang ier, 08/30/2025 07:30:00 AM, [address], [address], [place], [phone], Provider Name:Mahad Jang shaileshr, 09/05/2025 09:00:00 AM, [address] [facility] [address], [address], [place], [phone], Provider Name:Mahad Jang ier, 10/03/2025 11:00:00 AM, [address] [place] [address], [address], [place], [phone], Provider Name:Mahad Jang ier, 02/27/2026 07:45:00 AM, 10 [facility], [address], [place], [phone], Provider Name:Mahad Jang shaileshr, 03/06/2026 09:30:00 AM, [address] [place] [address], [address], [place], [phone], Progress Notes * RACHAEL CARTERDOB:[birth year] (74 yo M)Acc No.[id number]:12/27/2024 Patient: Gwen JOCELYNNLAURAVISHAL RACHAEL :1950 A ge:74 Y S ex:Male Address: [place], [address] * true * Date: Generated for Xena purdy/Adina/eTransmitting on: 0 04/18/2025 04:23 PM EDT
--- OUTSIDE RECORDS SUMMARY | 2025-02-26 03:45 | XMS_ITS ---
Author Organization Mahad Haddad MD Address [address] [place] [address] [phone] Support Name Relationship Address Phone BooRocíon Caregiver 10 [facility] ve [address] [place] [address] [phone] Svetlana Maldonado Caregiver 10 [facility] e [address] [place] [address] [phone] NoraAnderscris Caregiver 10 [facility] e [address] [place] [address] [phone] MARSHA COOLEY Caregiver 10 [facility] e [address] [place] [address] [phone] Candido Rodriguez Caregiver 10 [facility] ve [address] [place] [address] [phone] KIKI POLANCO Caregiver [address] [facility] [address] [place] [address] [phone] Erik Vaz Caregiver 10 [facility] sherman [address] [place] [address] [phone] Jennifer Ji Caregiver 10 [facility] ve [address] [place] [address] [phone] KRISTINA CARTER Emergency Contact 8 [place] [address] RACHAEL CARTER Guarantor Unknown [phone] Care Team Providers Care Air Quality Instrument Specialist Name Role Phone Mahad Haddad Primary Care Provider REASON FOR VISIT yearly fasting labs Encounters Encounter Location Date Provider Diagnosis Mahad Haddad MD [address] [place] [address] [phone] 02/26/2025 Mahad Haddad Blood tests for rout [...] Date Complete Blood Count Auto Diff Comprehensive [place]. Panel Fast Lipid Panel 02/26/2025 PSA,Total (Free>4and<10) 02/26/2025 Microalbumin, Random 02/26/2025 Hemoglobin A1c 02/26/2025 UA ClnCatch+Micro w/rflx Cult 02/26/2025 Next Appt Details Provider Name:Mahad de la paz, 08/30/2025 07:30:00 AM, [address] [place] [address], [address] [place] [address], [phone], Provider Name:Mahad de la paz, 09/05/2025 09:00:00 AM, [address] [place] [address], [address], [phone], Provider Name:Mahad de la paz, 10/03/2025 11:00:00 AM, [address] [place] [address], [address], [phone], Provider Name:Mahad de la paz, 02/27/2026 07:45:00 AM, [address] [place] [address], [address], [phone], Provider Name:Mahad de la paz, 03/06/2026 09:30:00 AM, [address] [place] [address], [address], [phone], Progress Notes * CHARLY CARTER:[birth year] (74 yo M)Acc No.[id number]:02/26/2025 Progress Note Patient: RACHAEL KONG Provider: Damion Haddad MD :1950 A ge:74 Y S ex:Male Date:02/26/2025 Address: [address], [id number] Subjective: * Chief Complaints: * 1 . [...] Blood Count Auto Diff L AB: Comprehensive [place]. Panel Fast L AB: Lipid Panel L AB: PSA,Total (Free>4and<10) L AB: Microalbumin, Random L AB: Hemoglobin A1c L AB: UA ClnCatch+Micro w/rflx Cult 3. T ype 2 diabetes mellitus without complication L AB: Complete Blood Count Auto Diff L AB: Comprehensive [place]. Panel Fast L AB: Lipid Panel L AB: PSA,Total (Free>4and<10) L AB: Microalbumin, Random L AB: Hemoglobin A1c L AB: UA ClnCatch+Micro w/rflx Cult 4. P rostatism L AB: Complete Blood Count Auto Diff L AB: Comprehensive [place]. Panel Fast L AB: Lipid Panel L AB: PSA,Total (Free>4and<10) L AB: Microalbumin, Random L AB: Hemoglobin A1c L AB: UA ClnCatch+Micro w/rflx Cult 5. P ure hypercholesterolemia L AB: Complete Blood Count Auto Diff L AB: Comprehensive [place]. Panel Fast L AB: Lipid Panel L [...] 0 02/26/2025 Generated for Xena purdy/Adina/Aide on: 04/18/2025 04:22 PM EDT
--- OUTSIDE RECORDS SUMMARY | 2025-03-05 05:30 | XMS_ITS ---
Author Organization Mahad Haddad MD Address [address] [place] [phone] Care Team Providers Care Customer Solutions Supervisor Name Role Phone Mahad Haddad Primary [...] dissolve Sublingual Once a day Active Pen [place] 33G X 4 MM as directed sq [...] Status W/U Status Risk Notes Problem Dysphagia (16761135) Dysphagia (R13.10) Active confirmed Vital Signs Blood pressure systolic 152 mm Hg 03/05/20 25 Blood pressure diastolic 68 mm Hg 025 Height 68 in 03/05/2025 Weight 216 lbs 03/05/2025 BMI 32.84 kg/m2 03/05/2025 Encounters Encounter Location Date Provider Diagnosis Mahad Haddad MD [address] [place] [address] Drive [address] [place] [phone] 03/05/2025 Mahad Haddad Annual physical exam Z00.00 [...] (ICD-10 - R13.10) will be booked at [facility] , will continue current regiment 03/05/2025 Pure [...] Name:Mahad de la paz, 08/30/2025 07:30:00 AM, [address] [place] [address], [address], [place], [place], [phone], Provider Name:Mahad de la paz, 09/05/2025 09:00:00 AM, [address] [place] [address], [address], [place], [place], [phone], Provider Name:Mahad de la paz, 10/03/2025 11:00:00 AM, [address] [facility], [address], [place], [place], [phone], Provider Name:Mahad Jang ana cristina, 02/27/2026 07:45:00 AM, [address] [facility], [address], [place], [phone], Provider Name:Mahad Jang ana cristina, 03/06/2026 09:30:00 AM, [address] [facility], [address], [place], [phone], Progress Notes * RACHAEL CARTERDOB:[birth year] (74 yo M)Acc No.[id number]:03/05/2025 Progress Notes Patient: RACHAEL KONG Provider: Damion Haddad MD :1950 A ge:74 Y S ex:Male Date:03/05/2025 [facility] [id number] Subjective: * Chief Complaints: * A nnual [...] 1 tablet Orally Once a day [place] 33G X 4 MM Miscellaneous as directed [...] tablet Orally Once a day Taking [place] 33G X 4 MM Miscellaneous as directed [...] mg/dL Urine Blood Negative Negative - Specific [place] - Urine 1.015 1.005-1.025 - Urine Protein [...] Urine 0-2 0-2 - /LPF L ab:Comprehensive [place]. Panel Fast (Order Date - 02/26/2025) (Collection [...] GI SERIES Notes: will be booked at [facility] , will continue current regiment 7. P [...] 0 03/05/2025 Generated for Xena purdy/Adina/Aide on: 04/18/2025 04:22 PM EDT History and Physical Notes * [...]
--- OUTSIDE RECORDS SUMMARY | 2025-03-26 07:30 | XMS_ITS ---
Author Organization Mahad Haddad MD Address [address] [place] [address] [phone] Care Team Providers Care Musculoskeletal Physician Name Role Phone Mahad Haddad Primary Care Provider [phone] Allergies No Known Allergies Reason For [...] Orally t hree times daily Active [place] 33G X 4 MM as directed sq [...] Date Provider Diagnosis Mahad Haddad MD [address] [place] [phone] 03/26/2025 Mahad Haddad Dysphagia R13.10 Assessments Encounter [...] Name:Mahad de la paz, 08/30/2025 07:30:00 AM, [address] [place] [address], [address], [phone], Provider Name:Mahad de la paz, 09/05/2025 09:00:00 AM, [address] [place] [address], [phone], Provider Name:Mahad de la paz, 10/03/2025 11:00:00 AM, [address] [place] [address], [phone], Provider Name:Mahad de la paz, 02/27/2026 07:45:00 AM, [address] [place] [address], [phone], Provider Name:Mahad de la paz, 03/06/2026 09:30:00 AM, [address] [place] [address], [phone], Progress Notes * CHARLY CARTER:[birth year] (74 yo M)Acc No.[id number]:03/26/2025 Progress Notes Patient: RACHAEL KONG Provider: Damion Haddad MD :1950 A ge:74 Y S ex:Male Date:03/26/2025 Address: [address], [id number] Subjective: * Chief Complaints: * D ISCUSS LAB WORK and Upper GI in patient docsAccompanied by son * HPI: S ymptom(s): patient is a 74 yo male here to discuss recent lab work/ has been feeling tired. had xrays on throat at [facility]. * ROS: G eneral/Constitutional: Denies C [...] 1 tablet Orally three times daily [place] 33G X 4 MM Miscellaneous as directed [...] tablet Orally three times daily Taking [place] 33G X 4 MM Miscellaneous as directed [...] 03/26/2025 Generated for Xena purdy/Adina/eTwilmersmitting on: 0 04/18/2025 04:23 PM EDT History and Physical Notes * HPI (History of Present Illness) Category Sub-Category Detail Notes Category Not es Symptom(s) patient is a 74 yo male here to discuss recent lab work/ has been feeling tired. had xrays on throat at [facility] Examination Category Sub-Category Detail Notes Category Not es General Examination GENERAL APPEARANCE: alert, w ell hydrated, in no distress repeatedly clearing his throat THROAT: am unable to see konrad y far down but appears normal NECK/THYROID: no adenopathy in nec k Consultation Request Notes Referral Date Referring Provider Referred Provider Not es 03/26/2025 Mahad Haddad [facility] Gayr godinez Referrals, [facility] Urgent Referrals Dysphagia
[2025-04-18 14:12] LABS: Anion Gap 11 (12-20); Blood Urea Nitrogen 13 mg/dL (9-16); Calcium 9.0 mg/dL (8.4-10.2); Carbon Dioxide 29 mmol/L (22-29); Chloride 103 mmol/L (96-108); Estimated Glomerular Filt Rate > 60; Potassium 4.0 mmol/L (3.3-5.1); Sodium 139 mmol/L (135-145)
--- OUTSIDE RECORDS SUMMARY | 2025-04-18 16:22 | XMS_ITS | Clinical Summary ---
Author Organization [facility] Address [address] [place] [address] [facility] [address] Phone Care Team Providers Care Rigging Helper Name Role Phone Mahad Haddad MD Primary [...] patient's age to complete this topic Insurance [id number] Medicare [facility] [place] [address] Care Teams Rigging Helper Relationship Specialty Start Date End Date Mahad Haddad MD [id number] [place] PCP - General 08/18/20
--- OUTSIDE RECORDS SUMMARY | 2025-04-18 16:23 | XMS_ITS | Patient Health Record ---
Author Organization [facility] Address [address] [place] [address] Care Team Providers Care Car Salesman Name Role Phone Mahad Haddad MD Primary Care Provider Juancarlos Cohen [phone] Allergies No Known Allergies Results Component Value Reference Range Notes Glucose, Whole Blood Reviewed date:09/14/2024 02:25:32 PM Interpretation: Performing Lab:[facility], [address] [place] [phone] Notes/Report: Glucose, Whole Blood 138 60-115 mg/dL METER # : [id number] Pathology (Not yet reviewed by provider) Interpretation: Performing Lab:[address] [id number] Notes/Report: Reason For Referral No Information Medications Medication [...] 20 MG TAKE 1 CAPSULE BY MO UT TWICE A DAY FOR HEARBURN 90 for [...] Problem Status W/U Status Risk Notes Problem 882166269 Encounter for screening for malignant neoplasm of colon (Z12.11) Active confirmed Problem 462200913 History of adenomatous polyp of colon (Z86.010) Active confirmed Problem Abdominal bloating (113209714) Abdominal bloating (R14.0) Active confirmed Problem Diverticular disease of colon (762453699) Diverticulosis of large intestine without perforation or abscess without bleeding (K57.30) Active confirmed Problem History of malignant neoplasm of colon (580193398) Personal history of other malignant neoplasm of large intestine (Z85.038) Active confirmed Problem History of gastrointestinal tract bypass (189181814) Intestinal bypass and anastomosis status (Z98.0) Active confirmed Problem 701406842 Gastroesophageal reflux disease with esophagitis (K21.0) Active confirmed Problem 813177257 History of colon cancer (Z85.038) Active confirmed Problem Diverticulosis of colon (510857370) Diverticulosis of colon (K57.30) Active confirmed Problem 307170277 Gastroesophageal reflux disease with esophagitis without hemorrhage (K21.00) Active confirmed Encounters Encounter Location Date Provider Diagnosis [facility] [address]patient [address] [place], [place] [phone] 09/14/2024 Juancarlos Sher Colon cancer screeni Z12.11 ; Colon polyps K63.5 ; Personal history of other malignant neoplasm of large intestine Z85.038 ; Intestinal bypass and anastomosis status Z98.0 ; Diverticulosis of large intestine without perforation or abscess without bleeding K57.30 and Other hemorrhoids K64.8 [facility] [address] [place] [address] 05/10/2024 Juancarlos Christos Assessments Encounter Date Diagnosis (ICD Code) Assessment [...] hemorrhoids (ICD-10 - K64.8) Plan Of Treatment Pending Test Test Name Order Date Pathology 09/14/2024 Future Test Test Name Order Date COLONOSCOPY 10/24/2014 COLONOSCOPY 04/18/2018 COLONOSCOPY 04/14/2021 COLONOSCOPY 01/24/2024 Insurance Providers Payer Name Payer Address Payer Phone Subscriber Number Group Number Insured Name Patient Relationship to Insured Coverage Start Date Coverage End Date [facility] [address] [address] [place] [address] [id number] RACHAEL AGUSTIN Self - patient is the insured Medical [...] in 2006 Internal hemorrhoids IDDM HTN Denies LA,CVA,Lung disease,renal disease EGD in 04/2011 with erosive esophagitis a nd HH-no Linn's esophagus Hyperlipidemia Colonoscopy in 05/2018 with removal of a tubular adenoma SBO in 02/2020 treated with NG tube--no s urgery Kidney stones Colonoscopy May 2021 Romero ited prep and one small polyp removed but not recovered for pathology Surgical History Surgery Date(Month/Year) Right colectomy for colon cancer as per [facility] Right inguinal hernia 2022-Dr. Schulz Stimulator put in back
--- OUTSIDE RECORDS SUMMARY | 2025-04-18 16:23 | XMS_ITS | Patient Health Record ---
Author Organization Mahad Haddad MD Address [address] [place] [address] [phone] Support Name Relationship Address Phone Mahad Haddad Caregiver [address] [facility] [address] [address] [place] [address] [phone] Svetlana Maldonado Caregiver [address] [facility] [address] [place] [address] [phone] Callie Melendez Caregiver [address] [facility] [address] [address] [place] [address] [phone] YASIRVIKTORIAJI Caregiver [address] [facility] [address] [place] [address] [phone] Candido Rodriguez Caregiver [address] [facility] [address] [place] [address] [phone] KIKI POLANCO Caregiver [address] [place] [address] [phone] Erik Vaz Caregiver [address] [facility] [address] [place] [address] [phone] Jennifer Ji Caregiver 10 [facility] [address] [place] [address] [phone] KRISTINA CARTER Emergency Contact [address] [place] [address] RACHAEL CARTER Guarantor Unknown [phone] Care Team Providers Care Denier Control Operator Name Role Phone Mahad Haddad Primary Care Provider Allergies No Known Allergies Results Component Value Reference Range Notes Glucose, finger stick Reviewed date:09/28/2024 10:01:27 AM Interpretation: Performing Lab: Notes/Report: Value 210 Vitamin B12 and Folate Reviewed date:05/21/2024 10:52:51 AM Interpretation: Performing Lab:[facility], [address] [place] [phone] Notes/Report: Vitamin B12 435 200-900 pg/mL NORMAL 200-900 PG/ML INDETERMINATE 160-199 PG/ML DEFICIENT < 160 PG/ML Folate 11.1 > or = 4.0 ng/mL Reference Values: > or = 4.0 ng/mL < 4.0 ng/mL suggests folate deficiency Methotrexate, aminopterin and folinic acid (leucovorin) are chemotherapeutic agents whose molecular structures are similar to folate; therefore, the Gas Scrubber Operator folate assay cannot be used for patients using these drugs. TSH reflex Free T4 Reviewed date:05/21/2024 11:01:50 AM Interpretation: Performing Lab:[facility], [address] [place] [phone] Notes/Report: TSH reflex Free T4 0.97 0.32-4.0 uIU/mL Glucose, Whole Blood Reviewed date:09/14/2024 12:30:34 PM Interpretation: Performing Lab:[facility], [address] [place] [phone] Notes/Report: Glucose, Whole Blood 138 60-115 mg/dL METER # : [id number] Pathology Reviewed date:09/18/2024 12:42:22 PM Interpretation: Performing Lab:[facility], [address] [place] [phone] Notes/Report: ---- Name: Tosha RuelasRachael Age/Sex: 74/M : 1950 Unit#: [id number] Attend Dr: Juancarlos Jacobs MD Re09/14/24 Status : [facility] Location: [facility] Disch: ---- SPEC : [id number] RECD: 09/14/24 STATUS: TANI KAUFMAN NUM: [id number] KEYSHAWN: 09/14/[address] [facility] [address]: Juancarlos Jacobs MD ENTERED: 09/14/24 43 SP TYPE: Surgical [...] Rachael Sanon Age/Sex: 74/M : 1950 Unit#: [id number] Attend Dr: Juancarlos Jacobs MD Re09/14/24 Status : [facility] Location: [facility] Disch: ---- SPEC : [id number] RECD: 09/14/24 STATUS: [facility] NUM: [id number] KEYSHAWN: 09/14/[address] [facility] [address]: Juancarlos Jacobs MD ENTERED: 09/14/24 43 SP TYPE: Surgical [...] microscopic examination, 4 pieces in cassette C2. [facility] Copies To: Mahad Haddad MD [facility] [address] [place] [address] Juancarlos Jacobs MD [facility] [address] [place], [place] [phone] ---- Signed (signature on file) Leora Holguin 09/17/24 1235 ---- END OF REPORT Dainel Betancourt Reviewed date:09/25/2024 04:53:21 PM Interpretation: Performing Lab:[facility], [address] [place] [phone] Notes/Report: Daniel Betancourt See Note Specimen held untested for 24 hours; Call to request Chemistry testing. Hemoglobin A1c Reviewed date:09/25/2024 04:53:31 PM Interpretation: Performing Lab:[facility], [address] [place] [phone] Notes/Report: Hemoglobin A1c % 7.7 <6.0 % [...] average glucose, using the formula of the [id number] Average Glucose study (ADAG), Diabetes Care, Vol.31,#8, Mar. 2007 Electrolytes Reviewed date:10/19/2024 12:22:07 PM Interpretation: Performing Lab:[facility], [address] [place] [phone] Notes/Report: Sodium 138 135-145 mmol/L Potassium 4.1 3.3-5.1 mmol/L Chloride 104 96-108 mmol/L Carbon Dioxide 27 22-29 mmol/L Anion Gap 11 12-20 Blood Urea Nitrogen Reviewed date:10/19/2024 12:22:27 PM Interpretation: Performing Lab:[facility], [address] [place] [phone] Notes/Report: Blood Urea Nitrogen 12 9-16 mg/dL Creatinine Reviewed date:10/19/2024 05:10:52 PM Interpretation: Performing Lab:[address] [phone] Notes/Report: Creatinine 0.84 0.5-1.4 mg/dL Estimated Glomerular Filt Rate > 60 Chronic Kidney Disease: Estimated GFR < 60 mL/min/1.73m2 Severe Kidney Disease: Estimated GFR < 15 mL/min/1.73m2 Calcium Reviewed date:10/19/2024 05:11:00 PM Interpretation: Performing Lab:[address] [phone] Notes/Report: Calcium 9.2 8.4-10.2 mg/dL Protein Creatinine Ratio, Ur Reviewed date:10/19/2024 05:11:12 PM Interpretation: Performing Lab:[address] [address] Notes/Report: Creatinine Urine 224.81 Total Protein Urine Random 16 <12 mg/dL Protein/Creatinine Ratio, Ur 0.07 <0.2 The spot urine protein:creatinine ratio may increase to 0.3 during normal . Complete Blood Count Auto Di ff Reviewed date:11/03/2024 09:30:06 AM Interpretation: Performing Lab:[facility], [address] [place] [phone] Notes/Report: White Blood Count 7.7 4.8-10.8 X10*3/uL [...] Panel Reviewed date:11/03/2024 09:28:51 AM Interpretation: Performing Lab:[facility], [address] [place] [phone] Notes/Report: Sodium 137 135-145 mmol/L Potassium 4.3 [...] Magnesium Reviewed date:11/02/2024 08:49:02 PM Interpretation: Performing Lab:[facility], [address] [place] [phone] Notes/Report: Magnesium 1.7 1.6-2.6 mg/dL Troponin-I High Sensitivity Reviewed date:11/02/2024 09:11:17 PM Interpretation: Performing Lab:[address] [phone] Notes/Report: Troponin-I High Sensitivity < 2.7 <3.5-35.0 ng/L The [place] high sensitivity Troponin-I results should be used in conjunction with other diagnostic information such as ECG, clinical observations and information, and patient symptoms to aid in the diagnosis of ID. Lipase Reviewed date:11/02/2024 08:49:52 PM Interpretation: Performing Lab:[address] [phone] Notes/Report: Lipase 15 8-78 U/L UA ClnCatch+Micro w/rflx Cul t Reviewed date:11/03/2024 09:29:07 AM Interpretation: Performing Lab:[address] [phone] Notes/Report: [id number] Urine, Clean Catch Color Urine Yellow Appearance Urine Clear PH 5.5 5.0-9.0 Glucose Urine UA >=1000 Negative mg/dL Urine Blood Negative Negative Specific [place] - Urine >= 1.030 1.005-1.025 Urine Protein Negative Neg-Trace mg/dL Urine Ketones Negative Negative mg/dL Nitrite Urine Negative Negative Leukocyte Esterase Urine Negative Negative XR KUB Reviewed date:11/02/2024 09:10:21 PM Interpretation: Performing Lab: Notes/Report: [address] [address] XRay Report Signed Patient: Rachael Sanon MR#: Dany [id number] : 1950 Acct:[id number] Age/Sex: 74 / M ADM Date: 11/02/24 Loc: HO.ED Attending Dr: Ordering Physician: Landy Rutledge CNP Date of Service: 11/02/24 Procedure(s): XR KUB Accession Number(s): [id number] cc: Landy Rutledge CNP; Mahad Haddad MD EXAMINATION: XR ABDOMEN KUB CLINICAL INDICATION: [...] Solo Mejia MD 11/02/2024 11:15 AM EDT Dictated By: Solo Mejia MD Signed By: <Electronically signed by Solo Mejia MD in OV> 11/02/24 1115 DD/ 1027 TD/TT: 11/02/24 1055 Hog Sticker: [place] [address] XRay Report Signed Patient: Rachael Sanon MR#: Dany [id number] : 1950 Acct:[id number] Age/Sex: 74 / M ADM Date: 11/02/24 Loc: HO.ED Attending Dr: Ordering Physician: Landy Rutledge CNP Date of Service: 11/02/24 Procedure(s): XR KUB Accession Number(s): [id number] cc: Landy Rutledge CNP; Mahad Haddad MD EXAMINATION: XR ABDOMEN KUB CLINICAL INDICATION: R lateral ABD pain COMPARISON: None. Correlation ma radha with CT abdomen and pelvis 10/26/2023. TECHNIQUE: [...] 11/02/24 1115 DD/ 1027 TD/TT: 11/02/24 1055 Hog Sticker: XR chest 2V Reviewed date:11/03/2024 09:28:31 AM Interpretation: Performing Lab: Notes/Report: [address] [address] XRay Report Signed Patient: Rachael Sanon MR#: M [id number] : 1950 Acct:[id number] Age/Sex: 74 / M ADM Date: 11/02/24 Loc: HO.ED Attending Dr: Ordering Physician: Landy Rutledge CNP Date of Service: 11/02/24 Procedure(s): XR chest 2V Accession Number(s): [id number] cc: Landy Rutledge CNP; Mahad Haddad MD EXAMINATION: XR CHEST CLINICAL INFORMATION: R [...] the colon incidentally noted. Electronically signed by: Sloo Mejia MD 11/02/2024 11:12 AM EDT RP Dictated By: Solo Mejia MD Signed By: <Electronically signed by Solo Mejia MD in OV> 11/02/24 1112 DD/ 1040 TD/TT: 11/02/24 1055 Hog Sticker: [place] [address] XRay Report Signed Patient: Rachael Sanon MR#: M [id number] : 1950 Acct:[id number] Age/Sex: 74 / M ADM Date: 11/02/24 Loc: HO.ED Attending Dr: Ordering Physician: Landy Rutledge CNP Date of Service: 11/02/24 Procedure(s): XR teri st 2V Accession Number(s): [id number] cc: Landy Rutledge CNP; Mahad Haddad MD EXAMINATION: XR CHEST CLINICAL INFORMATION: R [...] 11/02/2024 11:12 AM EDT RP Dictated By: Solo Mejia MD Signed By: <Electronically signed by Solo Mejia MD in OV> 11/02/24 1112 DD/ 1040 TD/TT: 11/02/24 1055 Hog Sticker: ABHINAV ClnCatch+Micro w/rflx Cul t Reviewed date:11/03/2024 09:32:21 AM Interpretation: Performing Lab:[facility], [address] [place] [phone] Notes/Report: [id number] Urine, Clean Catch Color Urine Yellow Appearance Urine Clear PH 5.5 5.0-9.0 Glucose Urine UA >=1000 Negative mg/dL Urine Blood Negative Negative Specific [place] - Urine >= 1.030 1.005-1.025 Urine Protein Negative Neg-Trace mg/dL Urine Ketones Negative Negative mg/dL Nitrite Urine Negative Negative Leukocyte Esterase Urine Negative Negative RBC Urine 0-2 0-2 /HPF WBC Urine 0-5 0-5 /HPF Squamous Epithelial Cell Urine 0-2 0-2 /HPF Bacteria Urine None Seen None Seen Hyaline Casts Urine 0-2 0-2 /LPF Glucose, Whole Blood Reviewed date:11/06/2024 12:20:28 PM Interpretation: Performing Lab:[facility], [address] [place] [phone] Notes/Report: Glucose, Whole Blood 176 60-115 mg/dL METER # : [id number] Pathology Reviewed date:11/08/2024 10:59:39 AM Interpretation: Performing Lab:[facility], [address] [facility], [place] [address] Notes/Report: ---- Name: Tosha RuelasRachael Age/Sex: 74/M : 1950 Unit#: [id number] Attend Dr: Rafita Garland MD Re11/05/24 Status : [facility] Location: [facility] Disch: ---- SPEC : [id number] RECD : 11/05/24 STATUS: REGULOMer SHAE NUM: [id number] KEYSHAWN: 11/05/24-[address] [facility] [address]: Rafita Garland MD ENTERED: 11/05/24-12 01 SP TYPE: Surgical OTHR DR: Mahad Haddad MD ORDERED: Gross Micro L4 Diagnosis Prostate, [...] ed intradepartmentally. Copies To: Rafita Garland MD [facility] [address] [facility] [address] [place], [place] [phone] Mahad Haddad MD [facility] [address] [facility] [address] [place] [address] ---- Signed (signature on file) Effie Newman MD 11/06/24 1201 ---- END OF REPORT US carotid duplex BI Reviewed date:02/14/2025 05:17:19 PM Interpretation: Performing Lab: Notes/Report: [address] [address] Ultrasound Report Signed Patient: Rachael Sanon MR#: M [id number] : 1950 Acct:[id number] Age/Sex: 74 / M ADM Date: 02/04/25 Loc: HO.US Attending Dr: Mahad Haddad MD Ordering Physician: Mahad Hadadd MD Date of Service: 02/04/25 Procedure(s): US carotid duplex BI Accession Number(s): [id number] cc: Mahad Haddad MD EXAMINATION: US EXTRACRANIAL CAROTID DUPLEX, BILATERAL CLINICAL INFORMATION: Dizziness. Giddiness. COMPARISON: Correlated to CT angiogram head and neck dated January 30, 2024. TECHNIQUE: Real-time ultrasound and Doppler techniques (integrating B-mode 2-D vascular images, Doppler spectral analysis and color-flow Doppler imaging) were utilized to interrogate the extracranial carotid arteries, the vertebral arteries and proximal subclavian arteries bilaterally. The degree of stenosis is determined by criteria similar to NASCET. FINDINGS: Right Side: 1. There is no atherosclerotic plaque seen in the bifurcation/proximal ICA region. 2. The common carotid artery PSV proximally is 112 cm/s and distally 82 cm/s. 3. The proximal internal carotid artery velocities are 66 cm/s systolic and 18 cm/s diastolic. 4. The proximal external carotid artery PSV is 77 cm/s. 5. The vertebral artery shows antegrade flow. 6. The subclavian artery waveforms are triphasic. ICA/CC ratio: 0.6. Left Side: 1. There is smooth and calcified atherosclerotic plaque seen in the bifurcation/proximal ICA region. 2. The common carotid artery PSV proximally is 98 cm/s and distally 107 cm/s. 3. The proximal internal carotid artery velocities are 119 cm/s systolic and 24 cm/s diastolic. 4. The proximal external carotid artery PSV is 120 cm/s. 5. The vertebral artery shows antegrade flow. 6. The subclavian artery waveforms are triphasic. ICA/CC ratio: 1.1. US/US carotid duplex BI IMPRESSION: 1. RIGHT: No hemodynamically significant stenosis by ultrasound criteria. No gross plaque. 2. LEFT: Small calcified plaque. 0-49% stenosis by ultrasound criteria. 3. There is no change in the category severity of disease when compared to the previous study dated . Electronically signed by: Unruly Estes MD 02/04/2025 03:54 PM EDT Dictated By: Unruly Loyd MD Signed By: <Electronically signed by Unruly Cary MD in OV> 02/04/25 1554 DD/ 1524 TD/TT: 02/04/25 1536 Hog Sticker: [address] [address] Ultrasound Report Signed Patient: Rachael Sanon MR#: M [id number] : 1950 Acct:[id number] Age/Sex: 74 / M ADM Date: 02/04/25 Loc: .US Attending Dr: Mahad Haddad MD Ordering Physician: Mahad Haddad MD Date of Service: 02/04/25 Procedure(s): US car otid duplex BI Accession Number(s): [id number] cc: Mahad Haddad MD EXAMINATION: US EXTRACRANIAL CM TID DUPLEX, BILATERAL CLINICAL INFORMATION: Dizziness. Giddiness. COMPARISON: Correlated to CT angiogram head and neck dated January 30, 2024. TECHNIQUE: Real-time ultrasound and Doppler techniques (integrating B-mode 2-D vascular images, Dop pler spectral analysis and color-flow Doppler imaging) were utilized to interrog ate the extracranial carotid arteries, the vertebral arteries a nd proximal subclavian arteries bilaterally. The degree of stenosis i s determined by criteria similar to NASCET. FINDINGS: Right Side: 1. There is no atherosclerotic plaque seen in the bifurcation/proximal ICA region. 2. The common caroti d artery PSV proximally is 112 cm/s and distally 82 cm/s. 3. The proximal inte rnal carotid artery velocities are 66 cm/s systolic and 18 cm/s diastolic. 4. The proximal exte rnal carotid artery PSV is 77 cm/s. 5. The vertebral art anna shows antegrade flow. 6. The subclavian ar kathrin waveforms are triphasic. ICA/CC ratio: 0.6. Left Side: 1. There is smooth a nd calcified atherosclerotic plaque seen in the bifurcation/proximal ICA region. 2. The common caroti d artery PSV proximally is 98 cm/s and distally 107 cm/s. 3. The proximal inte rnal carotid artery velocities are 119 cm/s systolic and 24 cm/s diastolic. 4. The proximal exte rnal carotid artery PSV is 120 cm/s. 5. The vertebral art anna shows antegrade flow. 6. The subclavian ar kathrin waveforms are triphasic. ICA/CC ratio: 1.1. U S/US carotid duplex BI IMPRESSION: 1. RIGHT: No hemodynamically significant stenosis by ultrasound criteria. No gross plaque. 2. LEFT: Small calci fied plaque. 0-49% stenosis by ultrasound criteria. 3. There is no freeman e in the category severity of disease when compared to the previous stud y dated . Electronically antonieta d by: Unruly Estes MD 02/04/2025 03:54 PM EDT RP Dictated By: Unruly Phelps MD Signed By: <Electronically signed by Unruly Cary MD in OV> 02/04/25 1554 DD/ 1524 TD/TT: 02/04/25 1536 Hog Sticker: CT abdomen pelvis wo con Reviewed date:02/14/2025 04:17:53 PM Interpretation: Performing Lab: Notes/Report: [address] [address] [address] Scan Report Signed Patient: Rachael Sanon MR#: M [id number] : 1950 Acct:[id number] Age/Sex: 74 / M ADM Date: 02/12/25 Loc: HO.CT Attending Dr: Maldonado Mota MD Ordering Physician: Maldonado Mota MD Date of Service: 02/12/25 Procedure(s): CT abdomen pelvis wo IV con Accession Number(s): [id number] cc: Mahad Haddad MD; Maldonado Mota MD Report Number: [id number]: Total DLP = 594.00 mGy-cm EXAMINATION: CT ABDOMEN AND PELVIS WITHOUT IV CONTRAST CLINICAL INFORMATION: R14.0 - Abdominal distension (gaseous) COMPARISON: November 03, 2023 TECHNIQUE: Multidetector volumetric imaging was performed from the superior aspect of the liver through the pubic symphysis with oral contrast. Sagittal and coronal reformatted images were obtained [...] head) *Use of iterative reconstruction technique DLP: 594 mGY*cm FINDINGS: LUNG BASES: Minimal linear scarring or atelectasis is present in the medial right lung base. LIVER, GALLBLADDER, AND BILIARY TREE: The liver is normal in size, shape, and attenuation. No focal hepatic lesion or biliary ductal dilatation is present. The gallbladder is unremarkable with no evidence of radiopaque gallstones, gallbladder wall thickening, or obvious pericholecystic inflammatory changes. PANCREAS: Unremarkable. SPLEEN: Unremarkable. ADRENAL GLANDS: Unremarkable. KIDNEYS AND URETERS: Again seen are stones in the left kidney, up to 4. The largest is in the lower pole and measured 4 mm, unchanged. BLADDER: Unremarkable. GASTROINTESTINAL TRACT: Again noted is postsurgical change with right hemicolectomy and anastomosis in the right midabdomen that is widely patent. Also again noted is compressed distal small bowel measuring 8 cm in length. Proximal to this decompressed section of bowel, distal small bowel loops are dilated with fecalized content (axial series #3 image 39-50/96). Oral contrast has not propagated into this section of bowel. There is oral contrast in the jejunum and proximal and mid ileum. ABDOMINAL WALL: Small left inguinal hernia contains adipose tissue. Very small fat-containing inguinal hernia is also seen on the right. Unchanged LYMPH NODES: Normal. VASCULAR: Unremarkable. PELVIC VISCERA: Unremarkable. OSSEOUS STRUCTURES: Neural stimulator device is present with electrodes terminating near bilateral L4-5 neural foramina. Wires terminate in the superficial subcutaneous soft tissues without a generator there are surgical clips where the generator was likely removed posterior to L2-3 and L4-5. CT/CT abdomen pelvis wo IV con IMPRESSION: Chronic distal small bowel obstruction with fecalized content. The distal ileum contains fecalized material. The distal 8 -10 cm of ileum is decompressed. There is no dilation of the jejunum and proximal and mid ileum. Right hemicolectomy with widely patent anastomosis. Stable left renal stones. Abandoned neurostimulator wires and leads at L4-5. Fleischner guidelines were followed. Electronically signed by: Nilesh Salmeron MD 02/12/2025 05:24 PM EDT Dictated By: Nilesh Salmeron MD Signed By: <Electronically signed by Nilesh Salmeron MD in OV> 02/12/25 1724 DD/ 1539 TD/TT: 02/12/25 1648 Hog Sticker: [address] [address] [address] Scan Report Signed Patient: Rachael Sanon MR#: M [id number] : 1950 Acct:[id number] Age/Sex: 74 / M ADM Date: 02/12/25 Loc: HO.CT Attending Dr: Maldonado Mota MD Ordering Physician: Maldonado Mota MD Date of Service: 02/12/25 Procedure(s): CT abd omen pelvis wo IV con Accession Number(s): [id number] cc: Mahad Haddad MD; Maldonado Mota MD Report Number: [id number]: Total DLP = 594.00 mGy-cm EXAMINATION: CT ABDOMEN AND PELVI S WITHOUT IV CONTRAST CLINICAL INFORMATION: R14.0 - Abdominal distension (gaseous) COMPARISON: November 03, 2023 TECHNIQUE: Multidetector volume tric imaging was performed from the superior aspect of the liver through the pubic symphysis with oral contrast. Sagittal and coronal reformat yuliet images were obtained on the technologist's workstation. This CT examination was performed using dose optimization techniques as appropriate, various ly including the following: *Automated exposure control *Adjustment of mA an d/or kV according to patient size (this includes techniques or standardized protocols for targeted exams where dose is matched to indication/reason for exam; i.e. extremities or head) *Use of iterative reconstruction technique DLP: 594 mGY*cm FINDINGS: LUNG BASES: Minimal linear scarring or atelectasis is present in the medial right lung base. LIVER, GALLBLADDER, AND BILIARY TREE: The liver is normal in size, shape, and attenuati on. No focal hepatic lesion or biliary ductal dilatation is presen t. The gallbladder is unremarkable with no evidence of radiopaque gallstones, gallbladder wall thickening, or obvious pericholecystic inflammatory changes. PANCREAS: Unremarkable. SPLEEN: Unremarkable. ADRENAL GLANDS: Unremarkable. KIDNEYS AND URETERS: Again seen are stone s in the left kidney, up to 4. The largest is in the lower pole and measured 4 mm, unchanged. BLADDER: Unremarkable. GASTROINTESTINAL TRACT: Again noted is postsurgical change with right hemicolectomy and anastomosis in the r ight midabdomen that is widely patent. Also again noted is compressed distal small bowel measuring 8 cm in length. Proximal to this decompressed section of bowel, distal small bowel loops are dila yuliet with fecalized content (axial series #3 image 39-50/96). Oral cont rast has not propagated into this section of bowel. There is oral contra st in the jejunum and proximal and mid ileum. ABDOMINAL WALL: Smal l left inguinal hernia contains adipose tissue. Very small fat-containing inguinal hernia is also seen on the right. Unchanged LYMPH NODES: Normal. VASCULAR: Unremarkable. PELVIC VISCERA: Unremarkable. OSSEOUS STRUCTURES: Neural stimulator device is present with electrodes terminating near bilateral L4-5 neural foramina. Wires terminate in the superficial subcutan eous soft tissues without a generator there are surgical clips where the generator was likely removed posterior to L2-3 and L4-5. C T/CT abdomen pelvis wo IV con IMPRESSION: Chronic distal small bowel obstruction with fecalized content. The distal ileum contain s fecalized material. The distal 8 -10 cm of ileum is decompressed. The re is no dilation of the jejunum and proximal and mid ileum. Right hemicolectomy with widely patent anastomosis. Stable left renal stones. Abandoned neurostimulator wires and leads at L4-5. Fleischner guideline s were followed. Electronically antonieta d by: iNlesh Salmeron MD 02/12/2025 05:24 PM EDT RP Dictated By: Nilesh Salmeron MD Signed By: <Electronically signed by Nilesh Slameron MD in OV> 02/12/25 1724 DD/ 1539 TD/TT: 02/12/25 1648 Hog Sticker: Complete Blood Count Auto Di ff Reviewed date:02/26/2025 02:51:23 PM Interpretation: Performing Lab:[facility], [address] [place] [phone] Notes/Report: White Blood Count 9.1 4.8-10.8 X10*3/uL Red Blood Count 4.31 4.60-5.80 X10*6/uL Hemoglobin 11.8 14.0-18.0 g/dl Hematocrit 36.3 42.0-52.0 % Mean Corpuscular Volume 84.2 80.0-98.0 fL Mean Corpuscular Hemoglobin 27.4 27.0-33.0 pg Mean Corpuscular HGB Conc 32.5 31.0-36.0 g/dl Red Cell Distribution Width 14.7 11.0-16.0 % Platelet Count 256 160-400 X10*3/uL Mean Platelet Volume 11.1 9.4-12.4 fL Neutrophils Percent Auto 75.1 45-73 % Imm Gran Pct Auto 0.3 0.0-0.4 % Lymphocytes Percent Auto 16.4 20-40 % Monocytes Percent Auto 5.9 2-11 % Eosinophils Percent Auto 1.8 0-4 % Basophils Percent Auto 0.5 0-2 % NRBC Pct Auto 0.0 0.0-0.2 /100WBC Neutrophils Absolute Auto 6.8 2.0-8.3 x10*3/uL Imm Gran Abs Auto 0.03 0.00-0.03 X10*3/uL Lymphocytes Absolute Auto 1.5 1.2-4.9 X10*3/uL Monocytes Absolute Auto 0.5 0.1-1.2 X10*3/uL Eosinophils Absolute Auto 0.2 0.0-0.4 X10*3/uL Basophils Absolute Auto 0.1 0.0-0.2 X10*3/uL NRBC Abs Auto 0.000 0.0-0.012 X10*3/uL Comprehensive [place]. Panel Fa st Reviewed date:02/26/2025 02:50:00 PM Interpretation: Performing Lab:[facility], [address] [place] [phone] Notes/Report: Sodium 140 135-145 mmol/L Potassium 4.1 3.3-5.1 mmol/L Chloride 105 96-108 mmol/L Carbon Dioxide 29 22-29 mmol/L Anion Gap 10 12-20 Blood Urea Nitrogen 8 9-16 mg/dL Creatinine 0.74 0.5-1.4 mg/dL Estimated Glomerular Filt Rate > 60 Chronic Kidney Disease: Estimated GFR < 60 mL/min/1.73m2 Severe Kidney Disease: Estimated GFR < 15 mL/min/1.73m2 Glucose Fasting 135 60-99 mg/dL A fasting glucose of 126 mg/dl or greater on more than one occasion is considered diagnostic of diabetes. Calcium 8.9 8.4-10.2 mg/dL Bilirubin Total 0.4 0.0-1.0 mg/dL Aspartate Amino Transferase 30 5-37 U/L Alanine Aminotransferase 33 0-40 U/L Total Protein 6.8 6.5-8.0 g/dL Albumin Level 4.1 3.5-5.0 g/dL Alkaline Phosphatase 80 39-117 U/L Lipid Panel Reviewed date:02/26/2025 02:46:02 PM Interpretation: Performing Lab:[address] [phone] Notes/Report: Triglycerides 50 <150 mg/dL Desirable Triglyceride: less than 150 mg/dL Borderline High Triglyceride 150-199 mg/dL High Triglyceride: 200-499 mg/dL Very High Triglyceride: greater than or equal to 5OO mg/dL Cholesterol 122 <200 mg/dL Desirable Cholesterol: less than 200 mg/dL Borderline High Cholesterol: 200-239 mg/dL High Cholesterol: greater than 239 mg/dL LDL Cholesterol Calculated 49 <100 mg/dL Desirable LDL: less than 100 mg/dL Near Optimal/Above Optimal LDL: 110-129 mg/dL Borderline High LDL: 130-159 mg/dL High LDL: 160-189 mg/dL Very High LDL: greater than or equal to 190 mg/dL HDL Cholesterol 63 >40 mg/dL Desirable HDL: greater than 40 mg/dL Note: This HDL assay may give artificially low results in patients with liver disease. PSA,Total (Free>4and<10) Reviewed date:02/26/2025 05:00:42 PM Interpretation: Performing Lab:[address] [phone] Notes/Report: PSA,Total (Free>4and<10) 1.97 0.00-4.00 ng/mL A Free PSA was not [...] Chemiluminescent Microparticle Immunoassay (CMIA) Microalbumin, Random Reviewed date:02/26/2025 02:52:27 PM Interpretation: Performing Lab:[address] [address] Notes/Report: Creatinine Urine 90.01 Microalbumin Urine 11.0 Microalbum/Creatinine Ratio Ur 12.2 <30 ug/mg cr Albumin/Creatinine Ratio Reference Ranges: Normal: < 30 ug/mg creatinine Microalbuminuria: 30 - 300 ug/mg creatinine Clinical Albuminuria: > 300 ug/mg creatinine Hemoglobin A1c Reviewed date:02/26/2025 05:00:57 PM Interpretation: Performing Lab:[facility], [address] [place] [phone] Notes/Report: Hemoglobin A1c % 8.3 <6.0 % Hemoglobin A1C Reference Range Adults: 4.8 - 6.0 % Non diabetic: < 6.0 % Goal: < 7.0 % Additional Action Suggested: > 8.0 % Note: Hemoglobin A1c results are invalid for patients with abnormal amounts of HbF. Blood transfusions may impact the HbA1c concentration in the patient sample. Estimated Average Glucose 192 eAG = Estimated average glucose which is %A1C expressed as average glucose, using the formula of the C1K-Afxadqm Average Glucose study (ADAG), Diabetes Care, Vol.31,#8, Mar. 2007 UA ClnCatch+Micro w/rflx Cul t Reviewed date:02/26/2025 02:54:43 PM Interpretation: Performing Lab:[facility], [address] [place] [phone] Notes/Report: [id number] Urine, Clean Catch Color Urine Yellow Appearance Urine Clear PH 8.5 5.0-9.0 Glucose Urine UA Negative Negative mg/dL Urine Blood Negative Negative Specific [place] - Urine 1.015 1.005-1.025 Urine Protein Negative Neg-Trace mg/dL Urine Ketones Negative Negative mg/dL Nitrite Urine Negative Negative Leukocyte Esterase Urine Negative Negative RBC Urine 0-2 0-2 /HPF WBC Urine 0-5 0-5 /HPF Squamous Epithelial Cell Urine 0-2 0-2 /HPF Bacteria Urine None Seen None Seen Hyaline Casts Urine 0-2 0-2 /LPF Reason For Referral Reason Dysphagia Diagnosis 1 Dysphagia (R13.10) Referral Organization Mahad Haddad MD Referring Provider First Name Mahad Referring Provider Last Name Boo Referring Provider Speciality Internal M edicine Referred Provider [facility], [facility] Referred Provider Specialty Otolaryngolo gy Referral Priority Routine Medications Medication SIG (Take, Route, Frequency, Duration) Notes Start Date End Date Status hydrALAZINE HCl 100 MG 1 tablet Orally t hree times daily Active Pen [place] 33G X 4 MM as directed sq tw ice a day for 30 days 10/27/2023 Active Dicyclomine HCl 10 MG 2 capsules Orally Three times a day for 30 day(s) Active Fioricet 50-300-40 MG 1-2 capsule as nee ded Orally every 6 hours prn Not-Taking Suboxone 2-0.5 MG 1 film under the tongue and allow to dissolve Sublingual Once a day Active Cefdinir 300 MG 1 capsule Orally every 12 hrs for 7 days Not-Taking Hyoscyamine Sulfate 0.125 MG 1 tablet as needed Orally twice a day for 90 days 10/16/2018 Not-Taking Meclizine HCl 25 MG 1 tablet as needed Orally every 12 hrs for 30 days Active Zofran 4 MG 1 tablet Orally TID prn Not-Taking Ibuprofen 800 MG 1 tablet with food o r milk as needed Orally Three times a day Not-Taking Acarbose 50 MG as directed Orally Not-Taking Aspir-81 81 MG 1 tablet Orally [...] DIRECTED 75 Subcutaneous once a day Active Atorvastatin Calcium 40 MG TAKE 1 TABLET BY MOUTH EVERY DAY Orally Once a day Active Losartan Potassium 100 MG 1 tablet Orall y Once a day 10/10/2020 Active hydroCHLOROthiazide 25 MG TAKE 1 TABLET BY MOUTH EVERY DAY IN THE MORNING FOR 30 DAYS Active Tamsulosin HCl 0.4 MG 1 capsule 30 minut es after the same meal each day Orally Once a day Active Carvedilol 6.25 MG 1 tablet with food Orally Twice a day Active Pioglitazone HCl 15 MG [...] morning Orally Once a day 10/10/2020 Active Immunizations Vaccine Route Administration Date Status [...] Problem Status W/U Status Risk Notes Problem 46639609 Prostatism (N40.0) Active confirmed Problem Anxiety (75914556) Anxiety (F41.9) Active confirmed Problem Dysphagia (04268842) Dysphagia (R13.10) Active confirmed Problem 446881749 Diverticulitis (K57.92) Active confirmed Problem 33261762 Irritable bowel syndrome without diarrhea (K58.9) Active confirmed Problem 91954714 Lumbar disc dise ase (M51.9) Active confirmed Problem 38816497 Essential hypert ension (I10) Active confirmed Problem 67076293 Type 2 diabetes mellitus without complication (E11.9) Active confirmed Problem 40111602 Memory loss (R41.3) Active confirmed Problem 922887779 History of colon cancer (Z85.038) Active confirmed Problem Dysthymia (04959113) Dysthymia (F34.1) Active confirmed Problem 93456074 Heart burn (R12) Active confirmed Problem 224492523 Pure hypercholesterolemia (E78.00) Active confirmed Problem 576005250 Back pain, unspe cified back location, unspecified back pain laterality, unspecified chronicity (M54.9) Active confirmed Problem 559488421 BMI 32.0-32.9,ad ult (Z68.32) Active confirmed Problem Psychoactive substance dependence (4634962) Drug dependence (F19.20) Active confirmed Problem 245894270 SBO (small bowel obstruction) (K56.609) Active confirmed Problem 884083593 Dry eyes, bilate ral (H04.123) Active confirmed Vital Signs Blood pressure diastolic 80 mm Hg 03/26/2025 Height 68 in 03/26/2025 Blood pressure systolic 116 mm Hg 03/26/2025 Weight 216 lbs 03/26/2025 BMI 32.84 kg/m2 03/26/2025 Encounters Encounter Location Date Provider Diagnosis Mahad Haddad MD [address] [place] [address] [id number] 05/15/2024 Mahad Haddad Memory loss R41.3 Mahad Haddad MD [address] [place] [address] Drive [address] [place] [id number] 09/21/2024 Mahad Haddad Type 2 diabetes margi itus without complication E11.9 and Pure hypercholesterolemia E78.00 Mahad Haddad MD [address] [place] [address] Drive [address] [place] [id number] 02/26/2025 Mahad Hadadd Blood tests for rout ine general physical examination Z00.00 ; Essential hypertension I10 ; Type 2 diabetes mellitus without complication E11.9 ; Prostatism N40.0 and Pure hypercholesterolemia E78.00 Mahad Haddad MD [address] [place] [address] Drive [address] [place] [id number] 09/28/2024 Mahad Haddad Type 2 diabetes margi itus without complication E11.9 and Encounter for general adult medical examination without abnormal findings Z00.00 Mahad Haddad MD [address] [id number] 03/05/2025 Mahad Haddad Annual physical exam Z00.00 ; Skin lesion L98.9 ; Back pain, unspecified back location, unspecified back pain laterality, unspecified chronicity M54.9 ; Essential hypertension I10 ; Type 2 diabetes mellitus without complication E11.9 ; Dysphagia R13.10 ; Pure hypercholesterolemia E78.00 ; Prostatism N40.0 ; Colon cancer screening Z12.11 and Depression screening Z13.31 Mahad Haddad MD [address] [place] [id number] 03/26/2025 Mahad Haddad Dysphagia R13.10 Mahad Haddad MD [address] [place] [id number] 05/03/2024 Mahad Haddad Memory loss R41.3 Mahad Haddad MD [address] [place] [id number] 06/04/2024 Mahad Haddad MD [address] [place] [address] [id number] 09/28/2024 Mahad Haddad MD [address] [place] [id number] 11/02/2024 Mahad Haddad MD [address] [place] [id number] 12/18/2024 Mahad Haddad Type 2 diabetes margi itus without complication E11.9 Mahad Haddad MD [address] [place] [id number] 12/27/2024 Mahad Haddad Assessments Encounter Date Diagnosis (ICD Code) Assessment Notes Treatment Notes Treatment Clinical Notes Section Notes 05/15/2024 Memory loss (ICD-10 - R41.3) 09/21/2024 Type 2 diabetes margi itus without complication (ICD-10 - E11.9) 09/21/2024 Pure hypercholesterolemia (ICD-10 - E78.00) 02/26/[address] ine general physical examination (ICD-10 - Z00.00) 09/28/2024 Type 2 diabetes margi itus without complication (ICD-10 - E11.9) 09/28/2024 Encounter for genera l adult medical examination without abnormal findings (ICD-10 - Z00.00) 03/05/2025 Annual physical exam (ICD-10 - Z00.00) labs reviewed and discussed with patient 03/05/2025 Skin lesion (ICD-10 - L98.9) appear s to be a adama ker will check again at next visit 03/26/2025 Dysphagia (ICD-10 - R13.10) sounds like in the back of throat. need ent evaluation 12/18/2024 Type 2 diabetes marig itus without complication (ICD-10 - E11.9) 02/26/2025 Essential hypertensi on (ICD-10 - I10) 03/05/2025 Back pain, unspecifi ed back location, unspecified back pain laterality, unspecified chronicity (ICD-10 - M54.9) doing better, will continue to monitor 05/03/2024 Memory loss (ICD-10 - R41.3) 02/26/2025 Type 2 diabetes margi itus without complication (ICD-10 - E11.9) 03/05/2025 Essential hypertensi on (ICD-10 - I10) well controlled, will continue current regiment 02/26/2025 Prostatism (ICD-10 - N40.0) 03/05/2025 Type 2 diabetes margi itus without complication (ICD-10 - E11.9) not doing as well as before will follow, will continue current regimnt and will continue to monitor 02/26/2025 Pure hypercholesterolemia (ICD-10 - E78.00) 03/05/2025 Dysphagia (ICD-10 - R13.10) will be booked at [facility] , will continue current regiment 03/05/2025 Pure hypercholesterolemia (ICD-10 - E78.00) stable, will continue curent regiment 03/05/2025 Prostatism (ICD-10 - N40.0) will continue to monitor 03/05/2025 Colon cancer screeni ng (ICD-10 - Z12.11) guaiac negative 03/05/2025 Depression screening (ICD-10 - Z13.31) negative screen Plan Of Treatment Pending Test Test Name Order Date Electrocardiogram (EKG) 12/30/2017 Electrocardiogram (EKG) 01/05/2019 Electrocardiogram (EKG) 12/23/2016 CT ABD W&WO CONTRAST 02/19/2013 CT ABD & PELVIS NO CONTRAST 10/11/2023 MRI LUMBAR SPINE NO CONTRAST 06/24/2017 XR GI SERIES 03/05/2025 Complete Blood Count Auto Diff Comprehensive [place]. Panel Fast Liver Panel 09/21/2024 Glucose Fasting 09/21/2024 Lipid Panel 02/26/2025 Lipid Panel with Reflex 09/21/2024 PSA,Total (Free>4and<10) 02/26/2025 Microalbumin, Random 02/26/2025 CT abdomen pelvis wo/w con 10/13/2023 MR head/brain wo con 05/03/2024 XR KUB 10/11/2023 Hemoglobin A1c 02/26/2025 Hemoglobin A1c 09/21/2024 UA ClnCatch+Micro w/rflx Cult 02/26/2025 Future Test Test Name Order Date US CAROTID BILATERAL DOPPLER 01/30/2025 Next Appt Details Provider Name:Mahadelif Jang ier, 08/30/2025 07:30:00 AM, [address] [place] [address], [address] [place] [address], [phone], Provider Name:Mahad Camara Laine ier, 09/05/2025 09:00:00 AM, [address] [place] [address], [address], [phone], Provider Name:Mahad Jang ier, 10/03/2025 11:00:00 AM, [address] [place] [address], Suite [facility], [place], [place], [phone], Provider Name:Mahad Jang ier, 02/27/2026 07:45:00 AM, [address] [place] [address], Suite [facility], [place], [place], [phone], Provider Name:Mahadelif Jang ier, 03/06/2026 09:30:00 AM, [address] [place] [address], [place] [address], [place], [place], [phone], Insurance Providers Payer Name Payer Address Payer Phone Subscriber Number Group Number Insured Name Patient Relationship to Insured Coverage Start Date Coverage End Date [facility] [employer] [address] [address] [place] [address] [id number] RACHAEL CARTER Self - patient is the insured MEDICARE [address] [place] [address] [id number] RACHAEL CARTER Self - patient is the insured Medical (General) History Medical History History ICD Code HAD COLON RESECTION DR [place] FOR LARGE POLYPS and adenocarcinoma [address] BAYLEE jacobs does colonoscopy every 2 years colonoscopy w/Dr. Jacobs on - repeat in 3 years, Colonoscopy done 05/09/18 repeat 2-[address] Jacobs/05/02 colonoscopy repeat 2-3y 05/27/21 coloscopy completed, 3yr repeat (2023)
== END 2025-04-18 12:10 | disposition home or self-care (01) ==
LOC: HO.LAB 12:09
PROVIDERS: PCP Internal Medicine; Visit Provider Internal Medicine Nephrology
DX: I10 Essential (primary) hypertension (principal)
CPT/HCPCS: 36415; 80051; 82310; 82565; 84520

== ENCOUNTER 2025-04-19 10:41 | Outpatient (AMB) | payer OTHER, SELFPAY ==
--- OUTSIDE RECORDS SUMMARY | 2024-09-14 04:30 | XMS_ITS ---
Author Organization [facility] Address [address] [place] [address] Care Team Providers Care Floor Specialist Name Role Phone Boo SIMS, Mahad Primary Care Provider Juancarlos Cohen [phone] REASON FOR VISIT 2 day prep, colon screening Problems Problem Type SNOMED Code ICD Code Onset Dates Problem Status W/U Status Risk Notes Problem History of gastrointestinal tract bypass (393890309) Intestinal bypass and anastomosis status (Z98.0) Active confirmed Problem Diverticular disease of colon (559768272) Diverticulosis of large intestine without perforation or abscess without bleeding (K57.30) Active confirmed Encounters Encounter Location Date Provider Diagnosis [facility] [place] [address] [place], [place] [phone] 09/14/2024 Juancarlos Sher Colon cancer scree geeta [...] Notes * RACHAEL AGUSTINDOB: (74 yo M)Acc No.[id number]:09/14/2024 COLON WITH MAC Patient: RACHAEL HEWITT Provider: William Sher MD :1950 A ge:74 Y S ex:Male Date:09/14/2024 Address: [address], [place], [facility] Pcp:Mahad Haddad MD Subjective: * Chief Complaints: [...] 09/14/2024 Generated for Xena purdy/Adina/Wesleyitting on: 0 04/19/2025 12:16 PM EDT
--- OUTSIDE RECORDS SUMMARY | 2024-11-10 04:55 | XMS_ITS ---
Author Organization [facility] Address [address] [place] [phone] Care Team Providers Care Video Production Specialist Name Role Phone Boo SIMS, Mahad Primary Care Provider Juancarlos Cohen [phone] REASON FOR VISIT hx colon ca,screening,hx polyps Encounters Encounter Location Date Provider Diagnosis [facility] [address] [place] [phone] 11/10/2024 Juancarlos Sher Plan Of Treatment No Information Progress Notes * RACHAEL AGUSTINDOB: (74 yo M)Acc No.[id number]:11/10/2024 COLON WITH MAC Patient: Gwen BLISS RACHAEL HEALY Provider: William Sher MD :1950 A ge:74 Y S ex:Male Date:11/10/2024 Address:[address], [id number] Pcp:Mahad Haddad MD Subjective: * Chief Complaints: [...] 0 11/10/2024 Generated for Printi ng/Faxing/eTransmitting on: 0 04/19/2025 12:16 PM EDT
--- OUTSIDE RECORDS SUMMARY | 2024-12-18 05:31 | XMS_ITS ---
Author Organization Mahad Haddad MD Address [address] [place] [address] [phone] Care Team Providers Care Purchase Order Checker Name Role Phone Mahad Haddad Primary Care [...] Date Provider Diagnosis Mahad Haddad MD [address] [place] [address] [phone] 12/18/2024 Mahad Haddad Type 2 diabetes mellitus [...] HCl 500 MG TAKE 1 TABLET BY [place] UT TWICE A DAY WITH MEALS Orally Once a day for 90 days Next Appt Details Provider Name:Mahad de la paz, 08/30/2025 07:30:00 AM, [address] [place] [address], [address], [phone], Provider Name:Mahad de la paz, 09/05/2025 09:00:00 AM, [address] [place] [address], [phone], Provider Name:Mahad de la paz, 10/03/2025 11:00:00 AM, [address] [place] [address], [address], [phone], Provider Name:Mahad de la paz, 02/27/2026 07:45:00 AM, [address] [place] [address], [phone], Provider Name:Mahad de la paz, 03/06/2026 09:30:00 AM, [address] [place] [address], [phone], Progress Notes * RACHAEL CARTERDOB:[birth year] (74 yo M)Acc No.[id number]:12/18/2024 Patient: RACHAEL KONG :1950 A ge:74 Y S ex:Male Address: [place], [address] * Refills Refill Atorvastatin Calcium Tablet, 40 MG, Orally, 90, TAKE 1 TABLET BY MOUTH EVERY DAY, Once a day, 90 days, Refills=3 Refill metFORMIN HCl Tablet, 500 MG, Orally, 180, TAKE 1 TABLET BY MOUTH TWICE A DAY WITH MEALS, Once a day, 90 days, Refills=3 * true * Date: Generated for Xena purdy/Adina/Aide on: 0 04/19/2025 12:18 PM EDT
--- OUTSIDE RECORDS SUMMARY | 2024-12-27 07:44 | XMS_ITS ---
Author Organization Mahad Haddad MD Address [address] [place] [phone] Support Name Relationship Address Phone Abbiejose alfredoRocíon Caregiver 10 [facility] [address] [place] [phone] Maldonado Mota Caregiver 10 [facility] [address] [place] [phone] NoraAnderscris Caregiver 10 [facility] [address] [place] [phone] MARSHA COOLEY Caregiver 10 [facility] [address] [facility] [address] [place] [phone] Candido Rodriguez Caregiver 10 [facility] [address] [place] [phone] KIKI POLANCO Caregiver [address] [place] [phone] Erik Vaz Caregiver [address] [facility] [address] [place], [place] [phone] Jennifer Ji Caregiver [facility] [address] [place] [phone] KRISTINA CARTER Emergency Contact 8 [place] [address] RACHAEL CARTER Guarantor Unknown Care Team Providers Care Language Tutor Name Role Phone Mahad Haddad Primary Care Provider REASON FOR VISIT Carotid US due . Encounters Encounter Location Date Provider Diagnosis Mahad Haddad MD [address] [place], [place] [phone] 12/27/2024 Mahad Haddad Plan Of Treatment Next Appt Details Provider Name:Mahad Jang ier, 08/30/2025 07:30:00 AM, [address], [address], [place], [phone], Provider Name:Mahad Jang shaileshr, 09/05/2025 09:00:00 AM, [address] [facility] [address], [address], [place], [phone], Provider Name:Mahad Jang ier, 10/03/2025 11:00:00 AM, [address] [place] [address], [address], [place], [phone], Provider Name:Mahad Jang ier, 02/27/2026 07:45:00 AM, [address] [place] [address], [address], [place], [phone], Provider Name:Mahad Jang shaileshr, 03/06/2026 09:30:00 AM, [address] [place] [address], [address], [place], [phone], Progress Notes * RACHAEL CARTERDOB:[birth year] (74 yo M)Acc No.[id number]:12/27/2024 Patient: Gwen JOCELYNNLAURAVISHAL RACHAEL :1950 A ge:74 Y S ex:Male Address: [place], [address] * true * Date: Generated for Xena purdy/Adina/eTransmitting on: 0 04/19/2025 12:18 PM EDT
--- OUTSIDE RECORDS SUMMARY | 2025-02-26 03:45 | XMS_ITS ---
Author Organization Mahad Haddad MD Address [address] [place] [address] [phone] Support Name Relationship Address Phone BooRocíon Caregiver 10 [facility] ve [address] [place] [address] [phone] Svetlana Maldonado Caregiver 10 [facility] e [address] [place] [address] [phone] NoraAnderscris Caregiver 10 [facility] e [address] [place] [address] [phone] MARSHA COOLEY Caregiver 10 [facility] e [address] [place] [address] [phone] Candido Rodriguez Caregiver 10 [facility] ve [address] [place] [address] [phone] KIKI POLANCO Caregiver 10 [facility] [address] [place] [address] [phone] Erik Vaz Caregiver 10 [facility] sherman [address] [place] [address] [phone] Jennifer Ji Caregiver 10 [facility] ve [address] [place] [address] [phone] KRISTINA CARTER Emergency Contact 8 [place] [address] RACHAEL CARTER Guarantor Unknown [phone] Care Team Providers Care Manager Cardiology Name Role Phone Mahad Haddad Primary Care Provider [phone] REASON FOR VISIT yearly fasting labs Encounters Encounter Location Date Provider Diagnosis Mahad Haddad MD [address] [place] [address] [phone] 02/26/2025 Mahad Haddad Blood tests for rout [...] Date Complete Blood Count Auto Diff Comprehensive [place]. Panel Fast Lipid Panel 02/26/2025 PSA,Total (Free>4and<10) 02/26/2025 Microalbumin, Random 02/26/2025 Hemoglobin A1c 02/26/2025 UA ClnCatch+Micro w/rflx Cult 02/26/2025 Next Appt Details Provider Name:Mahad de la paz, 08/30/2025 07:30:00 AM, [address] [place] [address], [address] [place] [address], [phone], Provider Name:Mahad de la paz, 09/05/2025 09:00:00 AM, [address] [place] [address], [address], [phone], Provider Name:Mahad de la paz, 10/03/2025 11:00:00 AM, [address] [place] [address], [address], [phone], Provider Name:Mahad de la paz, 02/27/2026 07:45:00 AM, [address] [place] [address], [address], [phone], Provider Name:Mahad de la paz, 03/06/2026 09:30:00 AM, [address] [place] [address], [address], [phone], Progress Notes * CHARLY CARTER:[birth year] (74 yo M)Acc No.[id number]:02/26/2025 Progress Note Patient: RACHAEL KONG Provider: Damion Haddad MD :1950 A ge:74 Y S ex:Male Date:02/26/2025 Address: [address], [id number] Subjective: * Chief Complaints: * 1 . [...] Blood Count Auto Diff L AB: Comprehensive [place]. Panel Fast L AB: Lipid Panel L AB: PSA,Total (Free>4and<10) L AB: Microalbumin, Random L AB: Hemoglobin A1c L AB: UA ClnCatch+Micro w/rflx Cult 3. T ype 2 diabetes mellitus without complication L AB: Complete Blood Count Auto Diff L AB: Comprehensive [place]. Panel Fast L AB: Lipid Panel L AB: PSA,Total (Free>4and<10) L AB: Microalbumin, Random L AB: Hemoglobin A1c L AB: UA ClnCatch+Micro w/rflx Cult 4. P rostatism L AB: Complete Blood Count Auto Diff L AB: Comprehensive [place]. Panel Fast L AB: Lipid Panel L AB: PSA,Total (Free>4and<10) L AB: Microalbumin, Random L AB: Hemoglobin A1c L AB: UA ClnCatch+Micro w/rflx Cult 5. P ure hypercholesterolemia L AB: Complete Blood Count Auto Diff L AB: Comprehensive [place]. Panel Fast L AB: Lipid Panel L [...] 02/26/2025 Generated for Xena purdy/Adina/Aide on: 0 04/19/2025 12:15 PM EDT
--- OUTSIDE RECORDS SUMMARY | 2025-03-05 05:30 | XMS_ITS ---
Author Organization Mahad Haddad MD Address [address] [place] [phone] Care Team Providers Care Drill Sergeant Name Role Phone Mahad Haddad Primary Care [...] dissolve Sublingual Once a day Active Pen [place] 33G X 4 MM as directed sq [...] Status W/U Status Risk Notes Problem Dysphagia (50610545) Dysphagia (R13.10) Active confirmed Vital Signs Blood pressure systolic 152 mm Hg 03/05/20 25 Blood pressure diastolic 68 mm Hg 025 Height 68 in 03/05/2025 Weight 216 lbs 03/05/2025 BMI 32.84 kg/m2 03/05/2025 Encounters Encounter Location Date Provider Diagnosis Mahad Haddad MD [address] [place] [address] Drive [address] [place] [phone] 03/05/2025 Mahad Haddad Annual physical exam Z00.00 [...] (ICD-10 - R13.10) [place] [facility] [place] continue current regiment 03/05/2025 Pure [...] Name:Mahad de la paz, 08/30/2025 07:30:00 AM, [address] [place] [address], [address], [place], [place], [phone], Provider Name:Mahad de la paz, 09/05/2025 09:00:00 AM, [address] [place] [address], [address], [place], [place], [phone], Provider Name:Mahad de la paz, 10/03/2025 11:00:00 AM, [address] [facility], [address], [place], [place], [phone], Provider Name:Mahad Jang ana cristina, 02/27/2026 07:45:00 AM, [address] [facility], [address], [place], [phone], Provider Name:Mahad Jang ana cristina, 03/06/2026 09:30:00 AM, [address] [facility], [address], [place], [phone], Progress Notes * RACHAEL CARTERDOB:[birth year] (74 yo M)Acc No.[id number]:03/05/2025 Progress Notes Patient: RACHAEL KONG Provider: Damion Haddad MD :1950 A ge:74 Y S ex:Male Date:03/05/2025 Address: [facility] [id number] Subjective: * Chief Complaints: * A nnual [...] 1 tablet Orally Once a day Pen [place] 33G X 4 MM Miscellaneous as directed [...] tablet Orally Once a day Taking Pen [place] 33G X 4 MM Miscellaneous as directed [...] mg/dL Urine Blood Negative Negative - Specific [place] - Urine 1.015 1.005-1.025 - Urine Protein [...] Urine 0-2 0-2 - /LPF L ab:Comprehensive [place]. Panel Fast (Order Date - 02/26/2025) (Collection [...] GI SERIES Notes: will be booked at [facility] [place] will continue current regiment 7. P [...] 0 03/05/2025 Generated for Xena purdy/Adina/Wesleyitting on: 0 04/19/2025 12:16 PM EDT History and Physical Notes * [...]
--- OUTSIDE RECORDS SUMMARY | 2025-03-26 07:30 | XMS_ITS ---
Author Organization Mahad Haddad MD Address [address] [place] [address] [phone] Care Team Providers Care Health Tech Name Role Phone Mahad Haddad Primary Care Provider Allergies No Known Allergies Reason For Referral Reason Dysphagia Diagnosis 1 Dysphagia (R13.10) Referral Organization Mahad Hdadad MD Referring Provider First Name Mahad Referring Provider Last Name Boo Referring Provider Speciality Internal M edicine Referred Provider [facility] Urgent Referrals, [facility]gent Referrals Referred Provider Specialty Otolaryngolo gy Referral Priority Routine REASON FOR VISIT DISCUSS LAB WORK and Upper GI in patient docs, Accompanied by son Medications Medication SIG (Take, Route, Frequency, Duration) Notes Start Date End Date Status Meclizine HCl 25 MG 1 tablet as needed Orally every 12 hrs for 30 days Active hydrALAZINE HCl 100 MG 1 tablet Orally t hree times daily Active Pen [place] 33G X 4 MM as directed sq [...] Location Date Provider Diagnosis Mahad Haddad MD [address] [place] [address] [phone] 03/26/2025 Mahad Haddad Dysphagia R13.10 Assessments Encounter [...] Surgeons Urgent Referrals Next Appt Details Provider Name:Mahda de la paz, 08/30/2025 07:30:00 AM, [address] [place] [address], [address], [phone], Provider Name:Mahad de la paz, 09/05/2025 09:00:00 AM, [address] [place] [address], [phone], Provider Name:Mahad de la paz, 10/03/2025 11:00:00 AM, [address] [place] [address], [phone], Provider Name:Mahad de la paz, 02/27/2026 07:45:00 AM, [address] [place] [address], [phone], Provider Name:Mahad de la paz, 03/06/2026 09:30:00 AM, [address] [place] [address], [phone], Progress Notes * CHARLY CARTER:[birth year] (74 yo M)Acc No.[id number]:03/26/2025 Progress Notes Patient: RACHAEL KONG Provider: Damion Haddad MD :1950 A ge:74 Y S ex:Male Date:03/26/2025 Address: [address], [id number] Subjective: * Chief Complaints: * D ISCUSS LAB WORK and Upper GI in patient docsAccompanied by son * HPI: S ymptom(s): patient is a 74 yo male here to discuss recent lab work/ has been feeling tired. had xrays on throat at [facility]. * ROS: G eneral/Constitutional: Denies C hills. [...] 1 tablet Orally three times daily Pen [place] 33G X 4 MM Miscellaneous as directed [...] tablet Orally three times daily Taking Pen [place] 33G X 4 MM Miscellaneous as directed sq twice a day Taking Wellbutrin XL 150 MG Tablet Extended Release 24 Hour 1 tablet in the morning Orally Once a day Taking OneTouch Verio - Strip TESTBLOOD SUGAR [...] MD Date: 0 03/26/2025 Generated for Xena purdy/Adina/eTwilmersmitting on: 0 04/19/2025 12:18 PM EDT History and Physical Notes * HPI (History of Present Illness) Category Sub-Category Detail Notes Category Not es Symptom(s) patient is a 74 yo male here to discuss recent lab work/ has been feeling tired. had xrays on throat at [facility] Examination Category Sub-Category Detail Notes Category Not es General Examination GENERAL APPEARANCE: alert, w ell hydrated, in no distress repeatedly clearing his throat THROAT: am unable to see konrad y far down but appears normal NECK/THYROID: no adenopathy in nec k Consultation Request Notes Referral Date Referring Provider Referred Provider Not es 03/26/2025 Mahad Haddad [facility] [place] [facility] Referrals, [facility] Urgent Referrals Dysphagia
--- NOTE | 2025-04-19 10:43 | HO.NEPHOV ---
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 His blood pressure is well controlled on current medication regimen. He is a diabetic and monitors blood sugar closely. He has not lost a lot of weight. He denies chest pain, shortness of breath, nausea, vomiting, diarrhea, edema , urinary or orthostatic symptoms. He has not been taking HCTZ and was taking carvedilol only once a day even though it was prescribed twice a day. 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 Surgical History Hx of inguinal hernia repair S/P placement of nerve stimulator Hx of surgical procedure Hx of cystoscopy Hx of lithotripsy Hx of right hemicolectomy Hx of colonoscopy (09/14/24) Hx of esophagogastroduodenoscopy Family History Father Unknown family medical history Mother Unknown family medical history Social History Are you a primary career technical education instructor to a significant other at home: No Do you presently have visiting nurse or other home services: No Alcohol intake: never Patient Tobacco Use Status: Never used Tobacco Second Hand Smoke Exposure: No Advance Directives Date on File: 09/08/14 Current occupational status: disabled 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/ Review of Systems Const All systems reviewed & are unremarkable except as noted in HPI and below Physical Exam Const General: comfortable and no acute distress Orientation/consciousness: patient oriented x3 HEENT Head: Yes normocephalic Mouth: Normal oral and palatal mucosa present Eyes EOM: EOMs intact bilaterally Neck Neck: Yes supple Resp Auscultation: clear to auscultation bilaterally Cardio Jugular venous distension: no JVD Rate: regular rate GI Palpation (GI): Soft to palpation Auscultation: normal bowel sounds General: Yes no CVA tenderness Back/Spine/Pelvis Back: no CVA tenderness Skin General skin exam: no rashes or lesions noted Neuro General: patient oriented x3 and moves all extremities Extrem General: Yes no pedal edema Results Reviewed Nephrology Results: Hgb, (14.0-18.0) 11.8 g/dl L 02/26/25 WBC, (4.8-10.8) 9.1 X10*3/uL 02/26/25 Plt Count, (160-400) 256 X10*3/uL 02/26/25 Sodium, (135-145) 139 mmol/L 04/18/25 Potassium, (3.3-5.1) 4.0 mmol/L 04/18/25 Chloride, (96-108) 103 mmol/L 04/18/25 Carbon Dioxide, (22-29) 29 mmol/L 04/18/25 BUN, (9-16) 13 mg/dL 04/18/25 Creatinine, (0.5-1.4) 0.87 mg/dL 04/18/25 Calcium, (8.4-10.2) 9.0 mg/dL 04/18/25 Urine Protein, (Neg-Trace) Negative mg/dL 02/26/25 Urine Creatinine 90.01 mg/dL 02/26/25 Assessment & Plan Assessment & Plan (1) Hypertension: Code(s): I10 - Essential (primary) hypertension Category: Medical Qualifiers: Hypertension type: essential hypertension Qualified Code(s): I10 - Essential (primary) hypertension Plan Isaac has long standing hypertension. His blood pressure is labile due to lack of taking medications the way which has been prescribed. He is a diabetic. He has no retinopathy or CHF. He has normal urine protein cr ratio and renal function is stable at baseline. He needs to loose weight. No medication changes made . Reiterated the way to take BP medications. Shall go up on Carvedilol if BP is still high. Follow up appointment given Medications: New hydrochlorothiazide 25 mg PO DAILY 120 tabs 4RF Changed From carvedilol must administer with a meal/food 6.25 mg PO BID To carvedilol must administer with a meal/food 6.25 mg PO BID 180 tabs 3RF 90 days Coding Level of Care Code Est Pt Level 4 (32985) Diagnoses Essential hypertension I10 Hypertension type: essential hypertension
[2025-04-19 10:59] VITALS: BP 164/60; PULSE 96; O2SAT 97; BMI 33.7
--- OUTSIDE RECORDS SUMMARY | 2025-04-19 12:16 | XMS_ITS | Patient Health Record ---
Author Organization [facility] Address [address] [place] [address] Care Team Providers Care Automation Driver Name Role Phone Mahad Haddad MD Primary Care Provider Juancarlos Cohen [phone] Allergies No Known Allergies Results Component Value Reference Range Notes Glucose, Whole Blood Reviewed date:09/14/2024 02:25:32 PM Interpretation: Performing Lab:[facility], [address] [place] [phone] Notes/Report: Glucose, Whole Blood 138 60-115 mg/dL METER # : [id number] Pathology (Not yet reviewed by provider) Interpretation: Performing Lab:[address] [phone] Notes/Report: Reason For Referral No Information Medications [...] Problem Status W/U Status Risk Notes Problem 404212516 Encounter for screening for malignant neoplasm of colon (Z12.11) Active confirmed Problem 656908347 History of adenomatous polyp of colon (Z86.010) Active confirmed Problem Abdominal bloating (056516342) Abdominal bloating (R14.0) Active confirmed Problem Diverticular disease of colon (876217723) Diverticulosis of large intestine without perforation or abscess without bleeding (K57.30) Active confirmed Problem History of malignant neoplasm of colon (892964472) Personal history of other malignant neoplasm of large intestine (Z85.038) Active confirmed Problem History of gastrointestinal tract bypass (534417312) Intestinal bypass and anastomosis status (Z98.0) Active confirmed Problem 790987641 Gastroesophageal reflux disease with esophagitis (K21.0) Active confirmed Problem 596341814 History of colon cancer (Z85.038) Active confirmed Problem Diverticulosis of colon (181907384) Diverticulosis of colon (K57.30) Active confirmed Problem 081091445 Gastroesophageal reflux disease with esophagitis without hemorrhage (K21.00) Active confirmed Encounters Encounter Location Date Provider Diagnosis [facility] Outpatient [address] [place], [place] [id number] 09/14/2024 Juancarlos Sher Colon cancer screeni Z12.11 ; Colon polyps K63.5 ; Personal history of other malignant neoplasm of large intestine Z85.038 ; Intestinal bypass and anastomosis status Z98.0 ; Diverticulosis of large intestine without perforation or abscess without bleeding K57.30 and Other hemorrhoids K64.8 [facility] [address] [place] [address] 05/10/2024 Juancarlos Christos Assessments Encounter Date Diagnosis [...] Insured Coverage Start Date Coverage End Date [facility] [address] [address] [place] [address] [id number] RACHAEL AGUSTIN Self - patient is the [...] in 2006 Internal hemorrhoids IDDM HTN Denies [place],CVA,Lung disease,renal disease EGD in 04/2011 with erosive esophagitis a nd HH-no Linn's esophagus Hyperlipidemia Colonoscopy in 05/2018 with removal of a tubular adenoma SBO in 02/2020 treated with NG tube--no s urgery Kidney stones Colonoscopy May 2021 Romero ited prep and one small polyp removed but not recovered for pathology Surgical History Surgery Date(Month/Year) Right colectomy for colon cancer as per [facility] Right inguinal hernia 2022-Dr. Schulz Stimulator put in back
--- OUTSIDE RECORDS SUMMARY | 2025-04-19 12:16 | XMS_ITS | Clinical Summary ---
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
--- OUTSIDE RECORDS SUMMARY | 2025-04-19 12:18 | XMS_ITS | Patient Health Record ---
Author Organization Mahad Haddad MD Address [address] [place] [address] [phone] Support Name Relationship Address Phone Mahad Haddad Caregiver [address] [facility] [address] [facility] [address] [place] [address] [phone] Svetlana Maldonado Caregiver [facility] [address] [place] [address] [phone] Callie Melendez Caregiver [address] [facility] [address] [place] [address] [phone] YASIRVIKTORIAJI Caregiver [facility] [address] [place] [address] [phone] Candido Rodriguez Caregiver [facility] [address] [place] [address] [phone] KIKI POLANCO Caregiver [address] [place] [address] [phone] Erik Vaz Caregiver [address] [facility] [address] sherman [address] [place] [address] [phone] Jennifer Ji Caregiver 10 [facility] ve [address] [place] [address] [phone] KRISTINA CARTER Emergency Contact [address] [place] [address] RACHAEL CARTER Guarantor Unknown Care Team Providers Care Addiction Nurse Name Role Phone Mahad Haddad Primary Care Provider [phone] Allergies No Known Allergies Results Component Value Reference Range Notes Glucose, finger stick Reviewed date:09/28/2024 10:01:27 AM Interpretation: Performing Lab: Notes/Report: Value 210 Vitamin B12 and Folate Reviewed date:05/21/2024 10:52:51 AM Interpretation: Performing Lab:[facility], [address] [place] [address] Notes/Report: Vitamin B12 435 200-900 pg/mL NORMAL 200-900 PG/ML INDETERMINATE 160-199 PG/ML DEFICIENT < 160 PG/ML Folate 11.1 > or = 4.0 ng/mL Reference Values: > or = 4.0 ng/mL < 4.0 ng/mL suggests folate deficiency Methotrexate, aminopterin and folinic acid (leucovorin) are chemotherapeutic agents whose molecular structures are similar to folate; therefore, the Industrial Psychology Teacher folate assay cannot be used for patients using these drugs. TSH reflex Free T4 Reviewed date:05/21/2024 11:01:50 AM Interpretation: Performing Lab:[facility], [address] [place] [address] Notes/Report: TSH reflex Free T4 0.97 0.32-4.0 uIU/mL Glucose, Whole Blood Reviewed date:09/14/2024 12:30:34 PM Interpretation: Performing Lab:[facility], [address] [place] [phone] Notes/Report: Glucose, Whole Blood 138 60-115 mg/dL METER # : [id number] Pathology Reviewed date:09/18/2024 12:42:22 PM Interpretation: Performing Lab:[facility], [address] [place] [address] Notes/Report: ---- Name: Tosha RuelasRachael Age/Sex: 74/M : 1950 Unit#: [id number] Attend Dr: Juancarlos Jacobs MD Re09/14/24 Status : [facility] Location: [facility] Disch: ---- SPEC : [id number] RECD: 09/14/24 STATUS: TANI KAUFMAN NUM: [id number] KEYSHAWN: 09/14/2442 [facility] DR: Juancarlos Jacobs MD ENTERED: 09/14/24 43 [...] Rachael Sanon Age/Sex: 74/M : 1950 Unit#: [id number] Attend Dr: Juancarlos Jacobs MD Re09/14/24 Status : [facility] Location: [facility] Disch: ---- SPEC : [id number] RECD: 09/14/24 STATUS: [facility] NUM: [id number] KEYSHAWN: 09/14/24 [facility] DR: Juancarlos Jacobs MD ENTERED: 09/14/24 43 [...] microscopic examination, 4 pieces in cassette C2. [facility] Copies To: Mahad Haddad MD [facility] [address] [place] [address] Juancarlos Jacobs MD [facility] [address] [place], [place] [phone] ---- Signed (signature on file) Leora Holguin 09/17/24 1235 ---- END OF REPORT Daniel Betancourt Reviewed date:09/25/2024 04:53:21 PM Interpretation: Performing Lab:[facility], [address] [place] [phone] Notes/Report: Daniel Betancourt See Note Specimen held untested for 24 hours; Call to request Chemistry testing. Hemoglobin A1c Reviewed date:09/25/2024 04:53:31 PM Interpretation: Performing Lab:[facility], [address] [place] [phone] Notes/Report: Hemoglobin A1c % 7.7 <6.0 % [...] average glucose, using the formula of the G7D-Rnjksmk Average Glucose study (ADAG), Diabetes Care, Vol.31,#8, Mar. 2007 Electrolytes Reviewed date:10/19/2024 12:22:07 PM Interpretation: Performing Lab:[facility], [address] [place] [phone] Notes/Report: Sodium 138 135-145 mmol/L Potassium 4.1 3.3-5.1 mmol/L Chloride 104 96-108 mmol/L Carbon Dioxide 27 22-29 mmol/L Anion Gap 11 12-20 Blood Urea Nitrogen Reviewed date:10/19/2024 12:22:27 PM Interpretation: Performing Lab:[facility], [address] [place] [phone] Notes/Report: Blood Urea Nitrogen 12 9-16 mg/dL Creatinine Reviewed date:10/19/2024 05:10:52 PM Interpretation: Performing Lab:[address] [address] Notes/Report: Creatinine 0.84 0.5-1.4 mg/dL Estimated Glomerular Filt Rate > 60 Chronic Kidney Disease: Estimated GFR < 60 mL/min/1.73m2 Severe Kidney Disease: Estimated GFR < 15 mL/min/1.73m2 Calcium Reviewed date:10/19/2024 05:11:00 PM Interpretation: Performing Lab:[address] [address] Notes/Report: Calcium 9.2 8.4-10.2 mg/dL Protein Creatinine Ratio, Ur Reviewed date:10/19/2024 05:11:12 PM Interpretation: Performing Lab:[address] [address] Notes/Report: Creatinine Urine 224.81 Total Protein Urine Random 16 <12 mg/dL Protein/Creatinine Ratio, Ur 0.07 <0.2 The spot urine protein:creatinine ratio may increase to 0.3 during normal . Complete Blood Count Auto Di ff Reviewed date:11/03/2024 09:30:06 AM Interpretation: Performing Lab:[facility], [address] [place] [phone] Notes/Report: White Blood Count 7.7 4.8-10.8 X10*3/uL [...] Panel Reviewed date:11/03/2024 09:28:51 AM Interpretation: Performing Lab:[facility], [address] [place] [phone] Notes/Report: Sodium 137 135-145 mmol/L Potassium 4.3 [...] Magnesium Reviewed date:11/02/2024 08:49:02 PM Interpretation: Performing Lab:[facility], [address] [place] [phone] Notes/Report: Magnesium 1.7 1.6-2.6 mg/dL Troponin-I High Sensitivity Reviewed date:11/02/2024 09:11:17 PM Interpretation: Performing Lab:[address] [address] Notes/Report: Troponin-I High Sensitivity < 2.7 <3.5-35.0 ng/L The Victoria high sensitivity Troponin-I results should be used in conjunction with other diagnostic information such as ECG, clinical observations and information, and patient symptoms to aid in the diagnosis of MS. Lipase Reviewed date:11/02/2024 08:49:52 PM Interpretation: Performing Lab:[address] [address] Notes/Report: Lipase 15 8-78 U/L UA ClnCatch+Micro w/rflx Cul t Reviewed date:11/03/2024 09:29:07 AM Interpretation: Performing Lab:[address] [address] Notes/Report: [id number] Urine, Clean Catch Color Urine Yellow Appearance Urine Clear PH 5.5 5.0-9.0 Glucose Urine UA >=1000 Negative mg/dL Urine Blood Negative Negative Specific [place] - Urine >= 1.030 1.005-1.025 Urine Protein Negative Neg-Trace mg/dL Urine Ketones Negative Negative mg/dL Nitrite Urine Negative Negative Leukocyte Esterase Urine Negative Negative XR KUB Reviewed date:11/02/2024 09:10:21 PM Interpretation: Performing Lab: Notes/Report: [address] [address] XRay Report Signed Patient: Rachael Sanon MR#: Dany [id number] : 1950 Acct:[id number] Age/Sex: 74 / M ADM Date: 11/02/24 Loc: HO.ED Attending Dr: Ordering Physician: Landy Rutledge CNP Date of Service: 11/02/24 Procedure(s): XR KUB Accession Number(s): [id number] cc: Landy Rutledge CNP; Mahad Haddad MD [...] 11/02/24 1115 DD/ 1027 TD/TT: 11/02/24 1055 [employer]: [place] [address] XRay Report Signed Patient: Rachael Sanon MR#: Dany [id number] : 1950 Acct:[id number] Age/Sex: 74 / M ADM Date: 11/02/24 Loc: HO.ED Attending Dr: Ordering Physician: Landy Rutledge CNP Date of Service: 11/02/24 Procedure(s): XR KUB Accession Number(s): [id number] cc: Landy Rutledge CNP; Mahad Haddad MD [...] 11/02/24 1115 DD/ 1027 TD/TT: 11/02/24 1055 [facility] [employer] [facility]: XR chest 2V Reviewed date:11/03/2024 09:28:31 AM Interpretation: Performing Lab: Notes/Report: [address] [address] XRay Report Signed Patient: Rachael Sanon MR#: M [id number] : 1950 Acct:[id number] Age/Sex: 74 / M ADM Date: 11/02/24 Loc: HO.ED Attending Dr: Ordering Physician: Landy Rutledge CNP Date of Service: 11/02/24 Procedure(s): XR chest 2V Accession Number(s): [id number] cc: Landy Rutledge CNP; Mahad Haddad MD [...] 11/02/24 1112 DD/ 1040 TD/TT: 11/02/24 1055 [facility] [employer] [facility]: [place] [address] XRay Report Signed Patient: Rachael Sanon MR#: M [id number] : 1950 Acct:[id number] Age/Sex: 74 / M ADM Date: 11/02/24 Loc: HO.ED Attending Dr: Ordering Physician: Landy Rutledge CNP Date of Service: 11/02/24 Procedure(s): XR teri st 2V Accession Number(s): [id number] cc: Landy Rutledge CNP; Mahad Haddad MD [...] 11/02/24 1112 DD/ 1040 TD/TT: 11/02/24 1055 [facility] [employer]: ABHINAV ClnCatch+Micro w/rflx Cul t Reviewed date:11/03/2024 09:32:21 AM Interpretation: Performing Lab:[facility], [address] [place] [address] Notes/Report: [id number] Urine, Clean Catch Color Urine Yellow Appearance Urine Clear PH 5.5 5.0-9.0 Glucose Urine UA >=1000 Negative mg/dL Urine Blood Negative Negative Specific [place] - Urine >= 1.030 1.005-1.025 Urine Protein Negative Neg-Trace mg/dL Urine Ketones Negative Negative mg/dL Nitrite Urine Negative Negative Leukocyte Esterase Urine Negative Negative RBC Urine 0-2 0-2 /HPF WBC Urine 0-5 0-5 /HPF Squamous Epithelial Cell Urine 0-2 0-2 /HPF Bacteria Urine None Seen None Seen Hyaline Casts Urine 0-2 0-2 /LPF Glucose, Whole Blood Reviewed date:11/06/2024 12:20:28 PM Interpretation: Performing Lab:[facility], [address] [place] [phone] Notes/Report: Glucose, Whole Blood 176 60-115 mg/dL METER # : [id number] Pathology Reviewed date:11/08/2024 10:59:39 AM Interpretation: Performing Lab:[facility], [address] [facility], [place] [address] Notes/Report: ---- Name: oTsha RuelasRachael Age/Sex: 74/M : 1950 Unit#: [id number] Attend Dr: Rafita Garland MD Re11/05/24 Status : [facility] Location: [facility] Disch: ---- SPEC : [id number] RECD : 11/05/24 STATUS: REGULOMer SHAE NUM: [id number] KEYSHAWN: 11/05/24-1101 [facility] DR: Rafita Garland MD ENTERED: 11/05/24-12 01 [...] ed intradepartmentally. Copies To: Rafita Garland MD [facility] [address] [facility] [address] [place], [place] [phone] Mahad Haddad MD [facility] [address] [place] [address] ---- Signed (signature on file) Effie Newman MD 11/06/24 1201 ---- END OF REPORT US carotid duplex BI Reviewed date:02/14/2025 05:17:19 PM Interpretation: Performing Lab: Notes/Report: [address] [address] Ultrasound Report Signed Patient: Rachael Sanon MR#: M [id number] : 1950 Acct:[id number] Age/Sex: 74 / M ADM Date: 02/04/25 Loc: HO.US Attending Dr: Mahad Haddad MD Ordering Physician: Mahad Haddad MD Date of Service: 02/04/25 Procedure(s): US carotid duplex BI Accession Number(s): [id number] cc: Mahad Haddad MD EXAMINATION: US EXTRACRANIAL [...] 02/04/25 1554 DD/ 1524 TD/TT: 02/04/25 1536 [employer]: [address] [address] Ultrasound Report Signed Patient: Rachael Sanon MR#: M [id number] : 1950 Acct:[id number] Age/Sex: 74 / M ADM Date: 02/04/25 Loc: .US Attending Dr: Mahad Haddad MD Ordering Physician: Mahad Haddad MD Date of Service: 02/04/25 Procedure(s): US car otid duplex BI Accession Number(s): [id number] cc: Mahad Haddad MD EXAMINATION: US EXTRACRANIAL [...] 02/04/25 1554 DD/ 1524 TD/TT: 02/04/25 1536 [facility] [employer]: CT abdomen pelvis wo con Reviewed date:02/14/2025 04:17:53 PM Interpretation: Performing Lab: Notes/Report: [address] [address] [address] Scan Report Signed Patient: Rachael Sanon MR#: M [id number] : 1950 Acct:[id number] Age/Sex: 74 / M ADM Date: 02/12/25 Loc: HO.CT Attending Dr: Maldonado Mota MD Ordering Physician: Maldonado Mota MD Date of Service: 02/12/25 Procedure(s): CT abdomen pelvis wo IV con Accession Number(s): [id number] cc: Mahad Haddad MD; Maldonado Mota MD Report Number: [id number]: Total DLP = 594.00 mGy-cm EXAMINATION: CT [...] 02/12/25 1724 DD/ 1539 TD/TT: 02/12/25 1648 [facility] [employer]: [address] [address] [address] Scan Report Signed Patient: Rachael Sanon MR#: M [id number] : 1950 Acct:[id number] Age/Sex: 74 / M ADM Date: 02/12/25 Loc: HO.CT Attending Dr: Maldonado Mota MD Ordering Physician: Maldonado Mota MD Date of Service: 02/12/25 Procedure(s): CT abd omen pelvis wo IV con Accession Number(s): [id number] cc: Mahad Haddad MD; Maldonado Mota MD Report Number: [id number]: Total DLP = 594.00 mGy-cm EXAMINATION: CT [...] s were followed. Electronically antonieta d by: Nilesh Salmeron MD 02/12/2025 05:24 PM EDT RP Dictated By: Nilesh Salmeron MD Signed By: <Electronically signed by Nilesh Salmeron MD in OV> 02/12/25 1724 DD/ 1539 TD/TT: 02/12/25 1648 [employer]: Complete Blood Count Auto Di ff Reviewed date:02/26/2025 02:51:23 PM Interpretation: Performing Lab:[facility], [address] [place] [address] Notes/Report: White Blood Count 9.1 4.8-10.8 X10*3/uL [...] NRBC Abs Auto 0.000 0.0-0.012 X10*3/uL Comprehensive Varnell. Panel Fa st Reviewed date:02/26/2025 02:50:00 PM Interpretation: Performing Lab:[facility], [address] [place] [address] Notes/Report: Sodium 140 135-145 mmol/L Potassium 4.1 [...] Panel Reviewed date:02/26/2025 02:46:02 PM Interpretation: Performing Lab:[address] [address] Notes/Report: Triglycerides 50 <150 mg/dL Desirable Triglyceride: [...] (Free>4and<10) Reviewed date:02/26/2025 05:00:42 PM Interpretation: Performing Lab:[address] [address] Notes/Report: PSA,Total (Free>4and<10) 1.97 0.00-4.00 ng/mL A [...] Random Reviewed date:02/26/2025 02:52:27 PM Interpretation: Performing Lab:[address] [address] Notes/Report: Creatinine Urine 90.01 Microalbumin Urine 11.0 Microalbum/Creatinine Ratio Ur 12.2 <30 ug/mg cr Albumin/Creatinine Ratio Reference Ranges: Normal: < 30 ug/mg creatinine Microalbuminuria: 30 - 300 ug/mg creatinine Clinical Albuminuria: > 300 ug/mg creatinine Hemoglobin A1c Reviewed date:02/26/2025 05:00:57 PM Interpretation: Performing Lab:[facility], [address] [place] [address] Notes/Report: Hemoglobin A1c % 8.3 <6.0 % [...] average glucose, using the formula of the T7W-Yhuqyos Average Glucose study (ADAG), Diabetes Care, Vol.31,#8, Mar. 2007 UA ClnCatch+Micro w/rflx Cul t Reviewed date:02/26/2025 02:54:43 PM Interpretation: Performing Lab:[facility], [address] [place] [address] Notes/Report: [id number] Urine, Clean Catch Color Urine Yellow Appearance Urine Clear PH 8.5 5.0-9.0 Glucose Urine UA Negative Negative mg/dL Urine Blood Negative Negative Specific [place] - Urine 1.015 1.005-1.025 Urine Protein Negative Neg-Trace mg/dL Urine Ketones Negative Negative mg/dL Nitrite Urine Negative Negative Leukocyte Esterase Urine Negative Negative RBC Urine 0-2 0-2 /HPF WBC Urine 0-5 0-5 /HPF Squamous Epithelial Cell Urine 0-2 0-2 /HPF Bacteria Urine None Seen None Seen Hyaline Casts Urine 0-2 0-2 /LPF Electrolytes (Not yet review ed by provider) Interpretation: Performing Lab:[facility], [address] [place] [address] Notes/Report: Sodium 139 135-145 mmol/L Potassium 4.0 3.3-5.1 mmol/L Chloride 103 96-108 mmol/L Carbon Dioxide 29 22-29 mmol/L Anion Gap 11 12-20 Blood Urea Nitrogen (Not yet reviewed by provider) Interpretation: Performing Lab:[facility], [address] [place] [address] Notes/Report: Blood Urea Nitrogen 13 9-16 mg/dL Creatinine (Not yet reviewed by provider) Interpretation: Performing Lab:[facility], [address] [place] [address] Notes/Report: Creatinine 0.87 0.5-1.4 mg/dL Estimated Glomerular Filt Rate > 60 Chronic Kidney Disease: Estimated GFR < 60 mL/min/1.73m2 Severe Kidney Disease: Estimated GFR < 15 mL/min/1.73m2 Calcium (Not yet reviewed by provider) Interpretation: Performing Lab:[facility], [address] [place] [address] Notes/Report: Calcium 9.0 8.4-10.2 mg/dL Reason For Referral Reason Dysphagia Diagnosis 1 [...] Orally t hree times daily Active [place] 33G X 4 MM as directed [...] Problem Status W/U Status Risk Notes Problem 05311570 Prostatism (N40.0) Active confirmed Problem Anxiety (58951204) Anxiety (F41.9) Active confirmed Problem Dysphagia (88190339) Dysphagia (R13.10) Active confirmed Problem 480188090 Diverticulitis (K57.92) Active confirmed Problem 49146740 Irritable bowel syndrome without diarrhea (K58.9) Active confirmed Problem 06444728 Lumbar disc dise ase (M51.9) Active confirmed Problem 64353837 Essential hypert ension (I10) Active confirmed Problem 53139072 Type 2 diabetes mellitus without complication (E11.9) Active confirmed Problem 57119865 Memory loss (R41.3) Active confirmed Problem 627139141 History of colon cancer (Z85.038) Active confirmed Problem Dysthymia (44995861) Dysthymia (F34.1) Active confirmed Problem 67304891 Heart burn (R12) Active confirmed Problem 488775444 Pure hypercholesterolemia (E78.00) Active confirmed Problem 894320122 Back pain, unspe cified back location, unspecified back pain laterality, unspecified chronicity (M54.9) Active confirmed Problem 709882841 BMI 32.0-32.9,ad ult (Z68.32) Active confirmed Problem Psychoactive substance dependence (9635574) Drug dependence (F19.20) Active confirmed Problem 820460337 SBO (small bowel obstruction) (K56.609) Active confirmed Problem 411187509 Dry eyes, bilate ral (H04.123) Active confirmed Vital Signs Blood pressure diastolic 80 mm Hg 03/26/2025 Height 68 in 03/26/2025 Blood pressure systolic 116 mm Hg 03/26/2025 Weight 216 lbs 03/26/2025 BMI 32.84 kg/m2 03/26/2025 Encounters Encounter Location Date Provider Diagnosis Mahad Haddad MD [address] [place] [address] [place] [address] [id number] 05/15/2024 Mahad Haddad Memory loss R41.3 Mahad Haddad MD [address] [place] [address] [id number] 09/21/2024 Mahad Haddad Type 2 diabetes margi itus without complication E11.9 and Pure hypercholesterolemia E78.00 Mahad Haddad MD [address] [place] [address] [id number] 02/26/2025 Mahad Haddad Blood tests for rout ine general physical examination Z00.00 ; Essential hypertension I10 ; Type 2 diabetes mellitus without complication E11.9 ; Prostatism N40.0 and Pure hypercholesterolemia E78.00 Mahad Haddad MD [address] [place] [address] [id number] 09/28/2024 Mahad Haddad Type 2 diabetes margi itus without complication E11.9 and Encounter for general adult medical examination without abnormal findings Z00.00 Mahad Haddad MD [address] [place] [address] [id number] 03/05/2025 Mahad Haddad Annual physical exam Z00.00 ; Skin lesion L98.9 ; Back pain, unspecified back location, unspecified back pain laterality, unspecified chronicity M54.9 ; Essential hypertension I10 ; Type 2 diabetes mellitus without complication E11.9 ; Dysphagia R13.10 ; Pure hypercholesterolemia E78.00 ; Prostatism N40.0 ; Colon cancer screening Z12.11 and Depression screening Z13.31 Mahad Haddad MD [address] [place] [id number] 03/26/2025 Mahad Haddad Dysphagia R13.10 Mahad Haddad MD [address] [place] [address] [id number] 05/03/2024 Mahad Haddad Memory loss R41.3 Mahad Haddad MD [address] [place] [address] [id number] 06/04/2024 Mahad Haddad MD [address] [place] [address] [id number] 09/28/2024 Mahad Haddad MD [address] [place] [address] [id number] 11/02/2024 Mahad Haddad MD [address] [place] [address] [id number] 12/18/2024 Mahad Haddad Type 2 diabetes margi itus without complication E11.9 Mahad Haddad MD [address] [place] [address] Drive [address] [place] [address] [id number] 12/27/2024 Mahad Haddad Assessments Encounter Date Diagnosis [...] need ent evaluation 12/18/2024 Type 2 diabetes margi itus without complication [...] (ICD-10 - R13.10) will be booked at [facility] , will continue current regiment 03/05/2025 Pure [...] 03/05/2025 Complete Blood Count Auto Diff Comprehensive Varnell. Panel Fast Liver Panel 09/21/2024 Electrolytes 04/18/2025 Blood Urea Nitrogen 04/18/2025 Creatinine 04/18/2025 Glucose Fasting 09/21/2024 Calcium 04/18/2025 Lipid Panel 02/26/2025 Lipid Panel with Reflex 09/21/2024 PSA,Total (Free>4and<10) 02/26/2025 Microalbumin, Random 02/26/2025 CT abdomen pelvis wo/w con 10/13/2023 MR head/brain wo con 05/03/2024 XR KUB 10/11/2023 Hemoglobin A1c 02/26/2025 Hemoglobin A1c 09/21/2024 UA ClnCatch+Micro w/rflx Cult 02/26/2025 Future Test Test Name Order Date US CAROTID BILATERAL DOPPLER 01/30/2025 Next Appt Details Provider Name:Mahad de la paz, 08/30/2025 07:30:00 AM, [address] [facility], [address], [place], [place], [phone], Provider Name:Mahad de la paz, 09/05/2025 09:00:00 AM, [address] [facility] [address], [address], [place], [phone], Provider Name:Mahad Jang ier, 10/03/2025 11:00:00 AM, [address] [facility], [address], [place], [phone], Provider Name:Mahad Jang ier, 02/27/2026 07:45:00 AM, [address] [facility], [address], [place], [place], [phone], Provider Name:Mahad Jang ier, 03/06/2026 09:30:00 AM, [address] [facility], [address], [place], [place], [id number], Insurance Providers Payer Name Payer Address Payer Phone Subscriber Number Group Number Insured Name Patient Relationship to Insured Coverage Start Date Coverage End Date [facility] [employer] [address] [address] [place] [address] [id number] RACHAEL CARTER Self - patient is the insured MEDICARE [employer] [address] [place] [id number] RACHAEL CARTER Self - patient is the [...]
== END 2025-04-19 11:22 | disposition home or self-care (01) ==
LOC: HO.HKA 10:42
PROVIDERS: PCP Internal Medicine; Visit Provider Internal Medicine Nephrology
DX: I10 Essential (primary) hypertension (principal)
CPT/HCPCS: 99214

== ENCOUNTER 2025-05-14 14:17 | Outpatient (AMB) | payer OTHER, SELFPAY ==
--- OUTSIDE RECORDS SUMMARY | 2024-09-14 04:30 | XMS_ITS ---
Author Organization [facility] Address [address] [place] [address] Care Team Providers Care Retail Brand Ambassador Name Role Phone Boo SIMS, Mahad Primary Care Provider Juancarlos Cohen [phone] REASON FOR VISIT 2 day prep, colon screening Problems Problem Type SNOMED Code ICD Code Onset Dates Problem Status W/U Status Risk Notes Problem History of gastrointestinal tract bypass (803301204) Intestinal bypass and anastomosis status (Z98.0) Active confirmed Problem Diverticular disease of colon (472605561) Diverticulosis of large intestine without perforation or abscess without bleeding (K57.30) Active confirmed Encounters Encounter Location Date Provider Diagnosis [facility] [place] Outpatient [address] [place], [place] [phone] 09/14/2024 Juancarlos Sher Colon cancer scree geeta [...] Treatment No Information Progress Notes * RACHAEL AGUTSINDOB: (74 yo M)Acc No.[id number]:09/14/2024 COLON WITH MAC Patient: RACHAEL HEWITT Provider: William Sher MD :1950 A ge:74 Y S ex:Male Date:09/14/2024 Address: [address], [place], [facility] Pcp:Mahad Haddad MD Subjective: * Chief Complaints: [...] MD Date: 0 09/14/2024 Generated for Xena purdy/Adina/Marysmitting on: 1 05:38 PM EDT
--- OUTSIDE RECORDS SUMMARY | 2024-11-10 04:55 | XMS_ITS ---
Author Organization [facility] Address [address] [place] [phone] Care Team Providers Care Game Bird Farmer Name Role Phone Boo SIMS, Mahad Primary Care Provider Juancarlos Cohen [phone] REASON FOR VISIT hx colon ca,screening,hx polyps Encounters Encounter Location Date Provider Diagnosis [facility] [address] [place] [address] 11/10/2024 Juancarlos Sher Plan Of Treatment No Information Progress Notes * RACHAEL AGUSTINDOB: (74 yo M)Acc No.[id number]:11/10/2024 COLON WITH MAC Patient: Gwen BLISS RACHAEL HEALY Provider: William Sher MD :1950 A ge:74 Y S ex:Male Date:11/10/2024 Address:[address], [id number] Pcp:Mahad Haddad MD Subjective: * Chief Complaints: [...] 11/10/2024 Generated for Printi ng/Faxing/eTransmitting on: 1 05:38 PM EDT
--- OUTSIDE RECORDS SUMMARY | 2024-12-18 05:31 | XMS_ITS ---
Author Organization Mahad Haddad MD Address [address] [place] [address] [phone] Care Team Providers Care Forestry Crew Chief Name Role Phone Mahad Haddad Primary Care Provider REASON FOR VISIT refill Medications Medication SIG [...] Date Provider Diagnosis Mahad Haddad MD [address] [place] [address] [phone] 12/18/2024 Mahad Haddad Type 2 diabetes mellitus [...] HCl 500 MG TAKE 1 TABLET BY [place] UT TWICE A DAY WITH MEALS Orally Once a day for 90 days Next Appt Details Provider Name:Mahad de la paz, 08/30/2025 07:30:00 AM, [address] [place] [address], [address], [phone], Provider Name:Mahad de la paz, 09/05/2025 09:00:00 AM, [address] [place] [address], [phone], Provider Name:Mahad de la paz, 10/03/2025 11:00:00 AM, [address] [place] [address], [address], [phone], Provider Name:Mahad de la paz, 02/27/2026 07:45:00 AM, [address] [place] [address], [phone], Provider Name:Mahad de la paz, 03/06/2026 09:30:00 AM, [address] [place] [address], [phone], Progress Notes * RACHAEL CARTERDOB:[birth year] (74 yo M)Acc No.[id number]:12/18/2024 Patient: RACHAEL KONG :1950 A ge:74 Y S ex:Male Address: [place], [address] * Refills Refill Atorvastatin Calcium Tablet, 40 MG, Orally, 90, TAKE 1 TABLET BY MOUTH EVERY DAY, Once a day, 90 days, Refills=3 Refill metFORMIN HCl Tablet, 500 MG, Orally, 180, TAKE 1 TABLET BY MOUTH TWICE A DAY WITH MEALS, Once a day, 90 days, Refills=3 * true * Date: Generated for Xena purdy/Adina/Aide on: 1 05:39 PM EDT
--- OUTSIDE RECORDS SUMMARY | 2024-12-27 07:44 | XMS_ITS ---
Author Organization Mahad Haddad MD Address [address] [place] [phone] Care Team Providers Care Adjunct Physics Instructor Name Role Phone Mahad Haddad Primary Care Provider [phone] REASON FOR VISIT Carotid US due . Encounters Encounter Location Date Provider Diagnosis Mahad Haddad MD [address] [place], [place] [phone] 12/27/2024 Mahad Haddad Plan Of Treatment Next Appt Details Provider Name:Mahad Jang ier, 08/30/2025 07:30:00 AM, [address], [address], [place], [phone], Provider Name:Mahad Jang shaileshr, 09/05/2025 09:00:00 AM, [address] [facility] [address], [address], [place], [phone], Provider Name:Mahad Jang ier, 10/03/2025 11:00:00 AM, [address] [place] [address] Drive, [address], [place], [phone], Provider Name:Mahad Jang ier, 02/27/2026 07:45:00 AM, 10 [facility], [address], [place], [phone], Provider Name:Mahad Jang shaileshr, 03/06/2026 09:30:00 AM, [address] [place] [address], [address], [place], [phone], Progress Notes * RACHAEL CARTERDOB:[birth year] (74 yo M)Acc No.[id number]:12/27/2024 Patient: Gwen JOCELYNNSASHA RACHAEL :1950 A ge:74 Y S ex:Male Address: [place], [address] * true * Date: Generated for Xena purdy/Adina/eTransmitting on: 05:37 PM EDT
--- OUTSIDE RECORDS SUMMARY | 2025-02-26 03:45 | XMS_ITS ---
Author Organization Mahad Haddad MD Address [address] [place] [address] [phone] Care Team Providers Care Head Of Music Name Role Phone Mahad Haddad Primary Care Provider REASON FOR VISIT yearly fasting labs Encounters Encounter Location Date Provider Diagnosis Mahad Haddad MD [address] [place] [address] [phone] 02/26/2025 Mahad Haddad Blood tests for rout [...] Date Complete Blood Count Auto Diff Comprehensive [place]. Panel Fast Lipid Panel 02/26/2025 PSA,Total (Free>4and<10) 02/26/2025 Microalbumin, Random 02/26/2025 Hemoglobin A1c 02/26/2025 UA ClnCatch+Micro w/rflx Cult 02/26/2025 Next Appt Details Provider Name:Mahad de la paz, 08/30/2025 07:30:00 AM, [address] [place] [address], [address] [place] [address], [phone], Provider Name:Mahad de la paz, 09/05/2025 09:00:00 AM, [address] [place] [address], [address], [phone], Provider Name:Mahad de la paz, 10/03/2025 11:00:00 AM, [address] [place] [address], [address], [phone], Provider Name:Mahad de la paz, 02/27/2026 07:45:00 AM, [address] [place] [address], [address], [phone], Provider Name:Mahad de la paz, 03/06/2026 09:30:00 AM, [address] [place] [address], [address], [phone], Progress Notes * CHARLY CARTER:[birth year] (74 yo M)Acc No.[id number]:02/26/2025 Progress Note Patient: RACHAEL KONG Provider: Damion Haddad MD :1950 A ge:74 Y S ex:Male Date:02/26/2025 Address: [address], [id number] Subjective: * Chief Complaints: * 1 . [...] Blood Count Auto Diff L AB: Comprehensive [place]. Panel Fast L AB: Lipid Panel L AB: PSA,Total (Free>4and<10) L AB: Microalbumin, Random L AB: Hemoglobin A1c L AB: UA ClnCatch+Micro w/rflx Cult 3. T ype 2 diabetes mellitus without complication L AB: Complete Blood Count Auto Diff L AB: Comprehensive [place]. Panel Fast L AB: Lipid Panel L AB: PSA,Total (Free>4and<10) L AB: Microalbumin, Random L AB: Hemoglobin A1c L AB: UA ClnCatch+Micro w/rflx Cult 4. P rostatism L AB: Complete Blood Count Auto Diff L AB: Comprehensive [place]. Panel Fast L AB: Lipid Panel L AB: PSA,Total (Free>4and<10) L AB: Microalbumin, Random L AB: Hemoglobin A1c L AB: UA ClnCatch+Micro w/rflx Cult 5. P ure hypercholesterolemia L AB: Complete Blood Count Auto Diff L AB: Comprehensive [place]. Panel Fast L AB: Lipid Panel L [...] 02/26/2025 Generated for Xena purdy/Adina/Aide on: 1 05:37 PM EDT
--- OUTSIDE RECORDS SUMMARY | 2025-03-05 05:30 | XMS_ITS ---
Author Organization Mahad Haddad MD Address [address] [place] [phone] Care Team Providers Care Horizontal Resaw Operator Name Role Phone Mahad Haddad Primary [...] dissolve Sublingual Once a day Active Pen [place] 33G X 4 MM as directed sq [...] Status W/U Status Risk Notes Problem Dysphagia ([id number]) Dysphagia (R13.10) Active confirmed Vital Signs Blood pressure systolic 152 mm Hg 03/05/20 25 Blood pressure diastolic 68 mm Hg 025 Height 68 in 03/05/2025 Weight 216 lbs 03/05/2025 BMI 32.84 kg/m2 03/05/2025 Encounters Encounter Location Date Provider Diagnosis Mahad Haddad MD [address] [place] [address] Drive [address] [place] [phone] 03/05/2025 Mahad Haddad Annual physical exam Z00.00 [...] (ICD-10 - R13.10) will be booked at [facility] , will continue current regiment 03/05/2025 Pure [...] Name:Mahad de la paz, 08/30/2025 07:30:00 AM, [address] [place] [address], [address], [place], [place], [phone], Provider Name:Mahad de la paz, 09/05/2025 09:00:00 AM, [address] [place] [address], [address], [place], [place], [phone], Provider Name:Mahad de la paz, 10/03/2025 11:00:00 AM, [address] [facility], [address], [place], [place], [phone], Provider Name:Mahad Jang ana cristina, 02/27/2026 07:45:00 AM, [address] [facility], [address], [place], [phone], Provider Name:Mahad Jang ana cristina, 03/06/2026 09:30:00 AM, [address] [facility], [address], [place], [phone], Progress Notes * RACHAEL CARTERDOB:[birth year] (74 yo M)Acc No.[id number]:03/05/2025 Progress Notes Patient: RACHAEL KONG Provider: Damion Haddad MD :1950 A ge:74 Y S ex:Male Date:03/05/2025 [facility] [id number] Subjective: * Chief Complaints: * A nnual [...] 1 tablet Orally Once a day Pen [place] 33G X 4 MM Miscellaneous as directed [...] tablet Orally Once a day Taking Pen [place] 33G X 4 MM Miscellaneous as directed [...] mg/dL Urine Blood Negative Negative - Specific [place] - Urine 1.015 1.005-1.025 - Urine Protein [...] Urine 0-2 0-2 - /LPF L ab:Comprehensive [place]. Panel Fast (Order Date - 02/26/2025) (Collection [...] GI SERIES Notes: will be booked at [facility] , will continue current regiment 7. P [...] 0 03/05/2025 Generated for Xena purdy/Adina/Aide on: 05:38 PM EDT History and Physical Notes * [...]
--- OUTSIDE RECORDS SUMMARY | 2025-03-26 07:30 | XMS_ITS ---
Author Organization Mahad Haddad MD Address [address] [place] [phone] Support Name Relationship Address Phone BooRocíon Caregiver [address] [facility] [address] [place] [address] [phone] Svetlana Maldonado Caregiver [address] [facility] [address] [facility] [address] [place] [address] [phone] EnLeana stephenmary Caregiver [address] [facility] [address] [facility] [address] [place] [address] [phone] MARSHA COOLEY Caregiver [address] [facility] [address] [facility] [address] [place] [address] [phone] Candido Rodriguez Caregiver [facility] [address] [facility] [address] [place] [address] [phone] KIKI POLANCO Caregiver [address] [place] [address] [phone] Erik Vaz Caregiver [address] [facility] [address] [place], [place] [phone] Jennifer Ji Caregiver [facility] [address] [place] [address] [phone] KRISTINA CARTER Emergency Contact [address] [place] [address] RACHAEL CARTER Guarantor Unknown [phone] Care Team Providers Care Mechatronics Technician Name Role Phone Mahad Haddad Primary Care Provider [phone] Allergies No Known Allergies Reason For Referral [...] referral needs to go under Shirin Quezada [phone] Referral Priority Routine REASON FOR VISIT DISCUSS LAB WORK and Upper GI in patient docs, Accompanied by son Medications Medication SIG (Take, Route, Frequency, Duration) Notes Start Date End Date Status Meclizine HCl 25 MG 1 tablet as needed Orally every 12 hrs for 30 days Active hydrALAZINE HCl 100 MG 1 tablet Orally t hree times daily Active Pen [place] 33G X 4 MM as directed sq [...] Location Date Provider Diagnosis Mahad Haddad MD [address] [place] [address] [phone] 03/26/2025 Mahad Haddad Dysphagia R13.10 Assessments Encounter [...] de la paz, 08/30/2025 07:30:00 AM, [address] [place] [address], [phone], Provider Name:Mahad de la paz, 09/05/2025 09:00:00 AM, [address] [place] [address], [phone], Provider Name:Mahad de la paz, 10/03/2025 11:00:00 AM, [address] [place] [address], [phone], Provider Name:Mahad de la paz, 02/27/2026 07:45:00 AM, [address] [place] [address], [phone], Provider Name:Mahad de la paz, 03/06/2026 09:30:00 AM, [address] [place] [address], [phone], Progress Notes * RACHAEL CARTERDOB:[birth year] (74 yo M)Acc No.[id number]:03/26/2025 Progress Notes Patient: RACHAEL KONG Provider: Damion Haddad MD :1950 A ge:74 Y S ex:Male Date:03/26/2025 Address: [address] [place], [id number] Subjective: * Chief Complaints: * D ISCUSS LAB WORK and Upper GI in patient docsAccompanied by son * HPI: S ymptom(s): patient is a 74 yo male here to discuss recent lab work/ has been feeling tired. had xrays on throat at [facility]. * ROS: G eneral/Constitutional: Denies C hills. [...] 1 tablet Orally three times daily Pen [place] 33G X 4 MM Miscellaneous as directed [...] tablet Orally three times daily Taking Pen [place] 33G X 4 MM Miscellaneous as directed [...] 0 03/26/2025 Generated for Xena purdy/Adina/Aide on: 05:37 PM EDT History and Physical Notes * HPI (History of Present Illness) Category Sub-Category Detail Notes Category Not es Symptom(s) patient is a 74 yo male here to discuss recent lab work/ has been feeling tired. had xrays on throat at [facility] Examination Category Sub-Category Detail Notes Category Not [...]
--- NOTE | 2025-05-14 14:42 | MHC.OFFVIS ---
Intake Visit Reasons: 6m follow up Intake Note: Patient is present for a 6m follow up Urology Medication:FINASTERIDE Antibiotic Allergy:NONE Blood Thinner:ASPIRIN Guest Services Required: No Allergies No Known Allergies Allergy (Verified 05/14/25 14:42) HPI Comments Details: Isaac is a pleasant male. He is seen for the following urologic condition. - lower urinary tract symptoms Six-month follow-up Has been on finasteride Citizen Of [place] translation provided by his son All questions asked Effective bladder emptying Should come off finasteride 12 month follow-up check PSA Lower urinary tract symptoms Plasma Button TURP limited - 10/30 Longstanding lower urinary tract symptoms Good response to combination therapy Current therapy Flomax 0.8 mg. Finasteride Persistent nocturia 2-3 times at night Cystoscopy large trilobar hypertrophy 2019 PSA 01/25 3.25, 01/26 3.0, 11/27 1.3, 01/27 1.3, 01/28 0.6 PFSH Medical History Right groin pain Right inguinal hernia On beta lala at home Hx SBO DM2 (diabetes mellitus, type 2) Disc degeneration, lumbar Chronic pain syndrome Spondylosis of lumbosacral spine with radiculopathy GERD (gastroesophageal reflux disease) Obesity (BMI 30-39.9) Hypertension 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 associated with type 2 diabetes mellitus long-term (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 Surgical History Hx of inguinal hernia repair S/P placement of nerve stimulator Hx of surgical procedure Hx of cystoscopy Hx of lithotripsy Hx of right hemicolectomy Hx of colonoscopy (09/14/24) Hx of esophagogastroduodenoscopy Family History Father Unknown family medical history Mother Unknown family medical history Social History Are you a primary residential care facility manager to a significant other at home: No Do you presently have visiting nurse or other home services: No Alcohol intake: never Patient Tobacco Use Status: Never used Tobacco Second Hand Smoke Exposure: No Advance Directives Date on File: 09/08/14 Current occupational status: disabled 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/ Review of Systems Const Denies chills and Denies fever(s) Card Reports no additional complaints and Denies syncope Resp Denies cough GI Denies abdominal pain and Denies heartburn Reports as per HPI and Denies change in libido Neuro Denies syncope Psych Denies change in libido Endo Denies change in libido Physical Exam Const General: cooperative, healthy appearing, comfortable and no acute distress Orientation/consciousness: patient oriented x3 HEENT Face and sinus: Yes normal facial exam Mouth: moist mucous membranes Neck Neck: Yes normal visual inspection, Yes full ROM and Yes trachea midline Chest Chest palpation & inspection: normal inspection of the chest Resp Effort & Inspection: normal respiratory effort, able to speak in complete sentences and no respiratory distress GI Inspection: Yes normal to inspection Back/Spine/Pelvis Cervical Spine: normal cervical lordosis Thoracic/Lumbar Spine: thoracic and lumbar spine normal to inspection Skin General skin exam: no rashes or lesions noted Neuro General: patient oriented x3, gait normal, tone normal and moves all extremities Extrem General: Yes normal to inspection and Yes capillary refill normal Assessment & Plan Assessment & Plan (1) BPH w urinary obs/LUTS: Code(s): N40.1 - Benign prostatic hyperplasia with lower urinary tract symptoms; N13.8 - Other obstructive and reflux uropathy Category: Medical (2) Urinary hesitancy: Code(s): R39.11 - Hesitancy of micturition Category: Medical Plan Twelve month follow-up PSA Orders: Orders Prostate Specific Antigen 12 Months N13.8 - Other obstructive and reflux uropathy, N40.1 - Benign prostatic hyperplasia with lower urinary tract symptoms Patient Instructions: This note is constructed using voice recognition software. While every effort has been made to ensure accuracy bumper machine operator errors may have been included. Imaging studies, laboratory and physical exam results were discussed and reviewed in detail. No major barriers to patient understanding were identified. An opportunity to ask questions regarding the treatment plan was provided. All questions were answered. The patient expressed understanding and agreement with the above treatment plan. The patient is aware they should contact our office by phone for worsening of their current condition or the appearance of new urologic symptoms. Compliance is encouraged with any medications and followup testing that is ordered. It is a privilege to participate in the urologic care of your patient. If you have any questions or concerns regarding treatment for the above conditions, or other urologic issues, please do not hesitate to contact me. The office telephone contact is [phone]. Sincerely, Dr Rafita Garland MD, [facility] - Urology Compassionate Specialist Care for the Genitourinary System Coding Level of Care Code Est Pt Level 3 (17035) Complex EM visit Add On G2211 Diagnoses BPH w urinary obs/LUTS N40.1; N13.8 Urinary hesitancy R39.11
--- OUTSIDE RECORDS SUMMARY | 2025-05-14 17:38 | XMS_ITS | Patient Health Record ---
Author Organization [facility] Address [address] [place] [address] Care Team Providers Care Lead Housekeeper Name Role Phone Mahad Haddad MD Primary Care Provider Juancarlos Cohen [phone] Allergies No Known Allergies Results Component Value Reference Range Notes Glucose, Whole Blood Reviewed date:09/14/2024 02:25:32 PM Interpretation: Performing Lab:[facility], [address] [place] [phone] Notes/Report: Glucose, Whole Blood 138 60-115 mg/dL METER # : [id number] Pathology (Not yet reviewed by provider) Interpretation: Performing Lab:[address] [id number] Notes/Report: Reason For Referral No Information Medications [...] Problem Status W/U Status Risk Notes Problem [id number] Encounter for screening for malignant neoplasm of colon (Z12.11) Active confirmed Problem 466306189 History of adenomatous polyp of colon (Z86.010) Active confirmed Problem Abdominal bloating (225137602) Abdominal bloating (R14.0) Active confirmed Problem Diverticular disease of colon (231606110) Diverticulosis of large intestine without perforation or abscess without bleeding (K57.30) Active confirmed Problem History of malignant neoplasm of colon (922289211) Personal history of other malignant neoplasm of large intestine (Z85.038) Active confirmed Problem History of gastrointestinal tract bypass (717239006) Intestinal bypass and anastomosis status (Z98.0) Active confirmed Problem 533122014 Gastroesophageal reflux disease with esophagitis (K21.0) Active confirmed Problem 487146648 History of colon cancer (Z85.038) Active confirmed Problem Diverticulosis of colon (120712894) Diverticulosis of colon (K57.30) Active confirmed Problem 818291216 Gastroesophageal reflux disease with esophagitis without hemorrhage (K21.00) Active confirmed Encounters Encounter Location Date Provider Diagnosis [facility] [place] [facility] [address] [place] [id number] 09/14/2024 Juancarlos Sher Colon cancer harmonye geeta Z12.11 ; Colon polyps K63.5 ; [...] Insured Coverage Start Date Coverage End Date [facility] [address] [address] [place] [address] [id number] RACHAEL AGUSTIN Self - patient is the [...] in 2006 Internal hemorrhoids IDDM HTN Denies MS,CVA,Lung disease,renal disease EGD in 04/2011 with erosive esophagitis a nd HH-no Linn's esophagus Hyperlipidemia Colonoscopy in 05/2018 with removal of a tubular adenoma SBO in 02/2020 treated with NG tube--no s urgery Kidney stones Colonoscopy May 2021 Romero ited prep and one small polyp removed but not recovered for pathology Surgical History Surgery Date(Month/Year) Right colectomy for colon cancer as per [facility] Right inguinal hernia 2022-Dr. Zeus Farley put in back
--- OUTSIDE RECORDS SUMMARY | 2025-05-14 17:39 | XMS_ITS | Patient Health Record ---
Author Organization Mahad Haddad MD Address [address] [place] [phone] Care Team Providers Care Microsoft [employer] Ax Developer Name Role Phone Mahad Haddad Primary Care Provider Allergies No Known Allergies Results Component Value Reference Range Notes Glucose, finger stick Reviewed date:09/28/2024 10:01:27 AM Interpretation: Performing Lab: Notes/Report: Value 210 Vitamin B12 and Folate Reviewed date:05/21/2024 10:52:51 AM Interpretation: Performing Lab:[facility], [address] [place] [phone] Notes/Report: Vitamin B12 435 200-900 pg/mL NORMAL 200-900 PG/ML INDETERMINATE 160-199 PG/ML DEFICIENT < 160 PG/ML Folate 11.1 > or = 4.0 ng/mL Reference Values: > or = 4.0 ng/mL < 4.0 ng/mL suggests folate deficiency Methotrexate, aminopterin and folinic acid (leucovorin) are chemotherapeutic agents whose molecular structures are similar to folate; therefore, the Inspector Repairer Sandstone folate assay cannot be used for patients using these drugs. TSH reflex Free T4 Reviewed date:05/21/2024 11:01:50 AM Interpretation: Performing Lab:[facility], [address] [place] [phone] Notes/Report: TSH reflex Free T4 0.97 0.32-4.0 uIU/mL Glucose, Whole Blood Reviewed date:09/14/2024 12:30:34 PM Interpretation: Performing Lab:[facility], [address] [place] [phone] Notes/Report: Glucose, Whole Blood 138 60-115 mg/dL METER # : [id number] Pathology Reviewed date:09/18/2024 12:42:22 PM Interpretation: Performing Lab:[facility], [address] [place] [phone] Notes/Report: ---- Name: Tosha RuelasRachael Age/Sex: 74/M : 1950 Unit#: [id number] Attend Dr: Juancarlos Jacobs MD Re09/14/24 Status : [facility] Location: [facility] Disch: ---- SPEC : [id number] RECD: 09/14/24 STATUS: TANI KAUFMAN NUM: [id number] KEYSHAWN: 09/14/[address] [facility] [address]: Juancarlos Jacobs MD ENTERED: 09/14/24 45 [...] Rachael Sanon Age/Sex: 74/M : 1950 Unit#: [id number] Attend Dr: Juancarlos Jacobs MD Re09/14/24 Status : [facility] Location: [facility] Disch: ---- SPEC : [id number] RECD: 09/14/24 STATUS: TANI [facility] NUM: [id number] KEYSHAWN: 09/14/[address] [facility] [address]: Juancarlos Jacobs MD ENTERED: 09/14/24 43 [...] microscopic examination, 4 pieces in cassette C2. [facility] [place] Copies To: Mahad Haddad MD [facility] [address] [place] [address] Juancarlos Jacobs MD [facility] [address] [place], [place] [id number] ---- Signed (signature on file) Leora Holguin 09/17/24 1235 ---- END OF REPORT Daniel Betancourt Reviewed date:09/25/2024 04:53:21 PM Interpretation: Performing Lab:[facility], [address] [place] [phone] Notes/Report: Daniel Betancourt See Note Specimen held untested for 24 hours; Call to request Chemistry testing. Hemoglobin A1c Reviewed date:09/25/2024 04:53:31 PM Interpretation: Performing Lab:[facility], [address] [place] [phone] Notes/Report: Hemoglobin A1c % 7.7 <6.0 % [...] average glucose, using the formula of the H3Z-Fdcjorl Average Glucose study (ADAG), Diabetes Care, Vol.31,#8, Mar. 2007 Electrolytes Reviewed date:10/19/2024 12:22:07 PM Interpretation: Performing Lab:[facility], [address] [place] [phone] Notes/Report: Sodium 138 135-145 mmol/L Potassium 4.1 3.3-5.1 mmol/L Chloride 104 96-108 mmol/L Carbon Dioxide 27 22-29 mmol/L Anion Gap 11 12-20 Blood Urea Nitrogen Reviewed date:10/19/2024 12:22:27 PM Interpretation: Performing Lab:[facility], [address] [place] [phone] Notes/Report: Blood Urea Nitrogen 12 9-16 mg/dL Creatinine Reviewed date:10/19/2024 05:10:52 PM Interpretation: Performing Lab:[address] [phone] Notes/Report: Creatinine 0.84 0.5-1.4 mg/dL Estimated Glomerular Filt Rate > 60 Chronic Kidney Disease: Estimated GFR < 60 mL/min/1.73m2 Severe Kidney Disease: Estimated GFR < 15 mL/min/1.73m2 Calcium Reviewed date:10/19/2024 05:11:00 PM Interpretation: Performing Lab:[address] [address] Notes/Report: Calcium 9.2 8.4-10.2 mg/dL Protein Creatinine Ratio, Ur Reviewed date:10/19/2024 05:11:12 PM Interpretation: Performing Lab:[address] [address] Notes/Report: Creatinine Urine 224.81 Total Protein Urine Random 16 <12 mg/dL Protein/Creatinine Ratio, Ur 0.07 <0.2 The spot urine protein:creatinine ratio may increase to 0.3 during normal . Complete Blood Count Auto Di ff Reviewed date:11/03/2024 09:30:06 AM Interpretation: Performing Lab:[facility], [address] [place] [phone] Notes/Report: White Blood Count 7.7 4.8-10.8 X10*3/uL [...] Panel Reviewed date:11/03/2024 09:28:51 AM Interpretation: Performing Lab:[facility], [address] [place] [phone] Notes/Report: Sodium 137 135-145 mmol/L Potassium 4.3 [...] Magnesium Reviewed date:11/02/2024 08:49:02 PM Interpretation: Performing Lab:[facility], [address] [place] [phone] Notes/Report: Magnesium 1.7 1.6-2.6 mg/dL Troponin-I High Sensitivity Reviewed date:11/02/2024 09:11:17 PM Interpretation: Performing Lab:[address] [address] Notes/Report: Troponin-I High Sensitivity < 2.7 <3.5-35.0 ng/L The [place] high sensitivity Troponin-I results should be used in conjunction with other diagnostic information such as ECG, clinical observations and information, and patient symptoms to aid in the diagnosis of [place]. Lipase Reviewed date:11/02/2024 08:49:52 PM Interpretation: Performing Lab:[address] [phone] Notes/Report: Lipase 15 8-78 U/L UA ClnCatch+Micro w/rflx Cul t Reviewed date:11/03/2024 09:29:07 AM Interpretation: Performing Lab:[address] [address] Notes/Report: [id number] Urine, Clean Catch Color Urine Yellow Appearance Urine Clear PH 5.5 5.0-9.0 Glucose Urine UA >=1000 Negative mg/dL Urine Blood Negative Negative Specific [place] - Urine >= 1.030 1.005-1.025 Urine Protein Negative Neg-Trace mg/dL Urine Ketones Negative Negative mg/dL Nitrite Urine Negative Negative Leukocyte Esterase Urine Negative Negative XR KUB Reviewed date:11/02/2024 09:10:21 PM Interpretation: Performing Lab: Notes/Report: [address] [address] XRay Report Signed Patient: Rachael Sanon MR#: Dany [id number] : 1950 Acct:[id number] Age/Sex: 74 / M ADM Date: 11/02/24 Loc: HO.ED Attending Dr: Ordering Physician: Landy Rutledge CNP Date of Service: 11/02/24 Procedure(s): XR KUB Accession Number(s): [id number] cc: Landy Rutledge CNP; Mahad Haddad MD [...] 11/02/24 1115 DD/ 1027 TD/TT: 11/02/24 1055 Registered Dental Assistant Rda: [place] [address] XRay Report Signed Patient: Rachael Sanon MR#: Dany [id number] : 1950 Acct:[id number] Age/Sex: 74 / M ADM Date: 11/02/24 Loc: HO.ED Attending Dr: Ordering Physician: Landy Rutledge CNP Date of Service: 11/02/24 Procedure(s): XR KUB Accession Number(s): [id number] cc: Landy Rutledge CNP; Mahad Haddad MD [...] 11/02/24 1115 DD/ 1027 TD/TT: 11/02/24 1055 Registered Dental Assistant Rda: XR chest 2V Reviewed date:11/03/2024 09:28:31 AM Interpretation: Performing Lab: Notes/Report: [address] [address] XRay Report Signed Patient: Rachael Sanon MR#: M [id number] : 1950 Acct:[id number] Age/Sex: 74 / M ADM Date: 11/02/24 Loc: HO.ED Attending Dr: Ordering Physician: Landy Rutledge CNP Date of Service: 11/02/24 Procedure(s): XR chest 2V Accession Number(s): [id number] cc: Landy Rutledge CNP; Mahad Haddad MD [...] 11/02/24 1112 DD/ 1040 TD/TT: 11/02/24 1055 Registered Dental Assistant Rda: [place] [address] XRay Report Signed Patient: Rachael Sanon MR#: M [id number] : 1950 Acct:[id number] Age/Sex: 74 / M ADM Date: 11/02/24 Loc: HO.ED Attending Dr: Ordering Physician: Landy Rutledge CNP Date of Service: 11/02/24 Procedure(s): XR teri st 2V Accession Number(s): [id number] cc: Landy Rutledge CNP; Mahad Haddad MD [...] 11/02/24 1112 DD/ 1040 TD/TT: 11/02/24 1055 Registered Dental Assistant Rda: ABHINAV ClnCatch+Micro w/rflx Cul t Reviewed date:11/03/2024 09:32:21 AM Interpretation: Performing Lab:[facility], [address] [place] [phone] Notes/Report: [id number] Urine, Clean Catch Color Urine Yellow Appearance Urine Clear PH 5.5 5.0-9.0 Glucose Urine UA >=1000 Negative mg/dL Urine Blood Negative Negative Specific [place] - Urine >= 1.030 1.005-1.025 Urine Protein Negative Neg-Trace mg/dL Urine Ketones Negative Negative mg/dL Nitrite Urine Negative Negative Leukocyte Esterase Urine Negative Negative RBC Urine 0-2 0-2 /HPF WBC Urine 0-5 0-5 /HPF Squamous Epithelial Cell Urine 0-2 0-2 /HPF Bacteria Urine None Seen None Seen Hyaline Casts Urine 0-2 0-2 /LPF Glucose, Whole Blood Reviewed date:11/06/2024 12:20:28 PM Interpretation: Performing Lab:[facility], [address] [place] [phone] Notes/Report: Glucose, Whole Blood 176 60-115 mg/dL METER # : [id number] Pathology Reviewed date:11/08/2024 10:59:39 AM Interpretation: Performing Lab:[facility], [address], [place] [address] Notes/Report: ---- Name: Tosha RuelasRachael Age/Sex: 74/M : 1950 Unit#: [id number] Attend Dr: Rafita Garland MD Re11/05/24 Status : [facility] Location: [facility] Disch: ---- SPEC : [id number] RECD : 11/05/24 STATUS: REGULOMer SHAE NUM: [id number] KEYSHAWN: 11/05/24-[address] [facility] [address]: Rafita Garland MD ENTERED: 11/05/24-12 01 [...] ed intradepartmentally. Copies To: Rafita Garland MD [facility] [address] [facility] [address] [place], [place] [phone] Mahad Haddad MD [facility] [address] [facility] [address] [place] [address] ---- Signed (signature on file) Effie Newman MD 11/06/24 1201 ---- END OF REPORT US carotid duplex BI Reviewed date:02/14/2025 05:17:19 PM Interpretation: Performing Lab: Notes/Report: [address] [address] Ultrasound Report Signed Patient: Rachael Sanon MR#: M [id number] : 1950 Acct:[id number] Age/Sex: 74 / M ADM Date: 02/04/25 Loc: HO.US Attending Dr: Mahad Haddad MD Ordering Physician: Mahad Haddad MD Date of Service: 02/04/25 Procedure(s): US carotid duplex BI Accession Number(s): [id number] cc: Mahad Haddad MD EXAMINATION: US EXTRACRANIAL [...] 02/04/25 1554 DD/ 1524 TD/TT: 02/04/25 1536 Registered Dental Assistant Rda: [address] [address] Ultrasound Report Signed Patient: Rachael Sanon MR#: M [id number] : 1950 Acct:[id number] Age/Sex: 74 / M ADM Date: 02/04/25 Loc: .US Attending Dr: Mahad Haddad MD Ordering Physician: Mahad Haddad MD Date of Service: 02/04/25 Procedure(s): US car otid duplex BI Accession Number(s): [id number] cc: Mahad Haddad MD EXAMINATION: US EXTRACRANIAL [...] 02/04/25 1554 DD/ 1524 TD/TT: 02/04/25 1536 Registered Dental Assistant Rda: CT abdomen pelvis wo con Reviewed date:02/14/2025 04:17:53 PM Interpretation: Performing Lab: Notes/Report: [address] [address] [address] Scan Report Signed Patient: Rachael Sanon MR#: M [id number] : 1950 Acct:[id number] Age/Sex: 74 / M ADM Date: 02/12/25 Loc: HO.CT Attending Dr: Maldonado Mota MD Ordering Physician: Maldonado Mota MD Date of Service: 02/12/25 Procedure(s): CT abdomen pelvis wo IV con Accession Number(s): [id number] cc: Mahad Haddad MD; Maldonado Mota MD Report Number: [id number]: Total DLP = 594.00 mGy-cm EXAMINATION: CT [...] 02/12/25 1724 DD/ 1539 TD/TT: 02/12/25 1648 Registered Dental Assistant Rda: [address] [address] [address] Scan Report Signed Patient: Rachael Sanon MR#: M [id number] : 1950 Acct:[id number] Age/Sex: 74 / M ADM Date: 02/12/25 Loc: HO.CT Attending Dr: Maldonado Mota MD Ordering Physician: Maldonado Mota MD Date of Service: 02/12/25 Procedure(s): CT abd omen pelvis wo IV con Accession Number(s): [id number] cc: Mahad Haddad MD; Maldonado Mota MD Report Number: [id number]: Total DLP = 594.00 mGy-cm EXAMINATION: CT [...] 02/12/25 1724 DD/ 1539 TD/TT: 02/12/25 1648 Registered Dental Assistant Rda: Complete Blood Count Auto Di ff Reviewed date:02/26/2025 02:51:23 PM Interpretation: Performing Lab:[facility], [address] [place] [phone] Notes/Report: White Blood Count 9.1 4.8-10.8 X10*3/uL [...] NRBC Abs Auto 0.000 0.0-0.012 X10*3/uL Comprehensive [place]. Panel Fa st Reviewed date:02/26/2025 02:50:00 PM Interpretation: Performing Lab:[facility], [address] [place] [phone] Notes/Report: Sodium 140 135-145 mmol/L Potassium 4.1 [...] Panel Reviewed date:02/26/2025 02:46:02 PM Interpretation: Performing Lab:[address] [address] Notes/Report: Triglycerides 50 <150 mg/dL Desirable Triglyceride: [...] (Free>4and<10) Reviewed date:02/26/2025 05:00:42 PM Interpretation: Performing Lab:[address] [address] Notes/Report: PSA,Total (Free>4and<10) 1.97 0.00-4.00 ng/mL A [...] Random Reviewed date:02/26/2025 02:52:27 PM Interpretation: Performing Lab:[address] [address] Notes/Report: Creatinine Urine 90.01 Microalbumin Urine 11.0 Microalbum/Creatinine Ratio Ur 12.2 <30 ug/mg cr Albumin/Creatinine Ratio Reference Ranges: Normal: < 30 ug/mg creatinine Microalbuminuria: 30 - 300 ug/mg creatinine Clinical Albuminuria: > 300 ug/mg creatinine Hemoglobin A1c Reviewed date:02/26/2025 05:00:57 PM Interpretation: Performing Lab:[facility], [address] [place] [address] Notes/Report: Hemoglobin A1c % 8.3 <6.0 % [...] average glucose, using the formula of the N6U-Abzgtif Average Glucose study (ADAG), Diabetes Care, Vol.31,#8, Mar. 2007 UA ClnCatch+Micro w/rflx Cul t Reviewed date:02/26/2025 02:54:43 PM Interpretation: Performing Lab:[facility], [address] [place] [address] Notes/Report: [id number] Urine, Clean Catch Color Urine Yellow Appearance Urine Clear PH 8.5 5.0-9.0 Glucose Urine UA Negative Negative mg/dL Urine Blood Negative Negative Specific [place] - Urine 1.015 1.005-1.025 Urine Protein Negative Neg-Trace mg/dL Urine Ketones Negative Negative mg/dL Nitrite Urine Negative Negative Leukocyte Esterase Urine Negative Negative RBC Urine 0-2 0-2 /HPF WBC Urine 0-5 0-5 /HPF Squamous Epithelial Cell Urine 0-2 0-2 /HPF Bacteria Urine None Seen None Seen Hyaline Casts Urine 0-2 0-2 /LPF Electrolytes Reviewed date:04/19/2025 12:34:46 PM Interpretation: Performing Lab:[facility], [address] [place] [phone] Notes/Report: Sodium 139 135-145 mmol/L Potassium 4.0 3.3-5.1 mmol/L Chloride 103 96-108 mmol/L Carbon Dioxide 29 22-29 mmol/L Anion Gap 11 12-20 Blood Urea Nitrogen Reviewed date:04/21/2025 05:39:01 PM Interpretation: Performing Lab:[facility], [address] [place] [phone] Notes/Report: Blood Urea Nitrogen 13 9-16 mg/dL Creatinine Reviewed date:04/19/2025 12:33:49 PM Interpretation: Performing Lab:[facility], [address] [place] [phone] Notes/Report: Creatinine 0.87 0.5-1.4 mg/dL Estimated Glomerular Filt Rate > 60 Chronic Kidney Disease: Estimated GFR < 60 mL/min/1.73m2 Severe Kidney Disease: Estimated GFR < 15 mL/min/1.73m2 Calcium Reviewed date:04/19/2025 12:33:24 PM Interpretation: Performing Lab:[facility], [address] [place] [phone] Notes/Report: Calcium 9.0 8.4-10.2 mg/dL Reason For [...] referral needs to go under Shirin Quezada [phone] Referral Priority Routine Medications Medication SIG (Take, Route, Frequency, Duration) Notes Start Date End Date Status hydrALAZINE HCl 100 MG 1 tablet Orally t hree times daily Active Pen Presho 33G X 4 MM as directed sq [...] Problem Status W/U Status Risk Notes Problem 68028786 Prostatism (N40.0) Active confirmed Problem Anxiety (90897004) Anxiety (F41.9) Active confirmed Problem Dysphagia (38261807) Dysphagia (R13.10) Active confirmed Problem 217980075 Diverticulitis (K57.92) Active confirmed Problem 69674092 Irritable bowel syndrome without diarrhea (K58.9) Active confirmed Problem 05771544 Lumbar disc dise ase (M51.9) Active confirmed Problem 49293101 Essential hypert ension (I10) Active confirmed Problem 13198884 Type 2 diabetes mellitus without complication (E11.9) Active confirmed Problem 26069238 Memory loss (R41.3) Active confirmed Problem 365244380 History of colon cancer (Z85.038) Active confirmed Problem Dysthymia (82649258) Dysthymia (F34.1) Active confirmed Problem 18801343 Heart burn (R12) Active confirmed Problem 782747861 Pure hypercholesterolemia (E78.00) Active confirmed Problem 513074772 Back pain, unspe cified back location, unspecified back pain laterality, unspecified chronicity (M54.9) Active confirmed Problem 308924283 BMI 32.0-32.9,ad ult (Z68.32) Active confirmed Problem Psychoactive substance dependence (8861145) Drug dependence (F19.20) Active confirmed Problem 584304771 SBO (small bowel obstruction) (K56.609) Active confirmed Problem 364310626 Dry eyes, bilate ral (H04.123) Active confirmed Vital Signs Blood pressure diastolic 80 mm Hg 03/26/2025 Height 68 in 03/26/2025 Blood pressure systolic 116 mm Hg 03/26/2025 Weight 216 lbs 03/26/2025 BMI 32.84 kg/m2 03/26/2025 Encounters Encounter Location Date Provider Diagnosis Mahad Haddad MD [address] [place] [address] [id number] 05/15/2024 Mahad Haddad Memory loss R41.3 Mahad Haddad MD [address] [place] [id number] 09/21/2024 Mahad Haddad Type 2 diabetes margi itus without complication E11.9 and Pure hypercholesterolemia E78.00 Mahad Haddad MD [address] [place] [id number] 02/26/2025 Mahad Haddad Blood tests for rout ine general physical examination Z00.00 ; Essential hypertension I10 ; Type 2 diabetes mellitus without complication E11.9 ; Prostatism N40.0 and Pure hypercholesterolemia E78.00 Mahad Haddad MD [address] [place] [id number] 09/28/2024 Mahad Haddad Type 2 diabetes margi itus without complication E11.9 and Encounter for general adult medical examination without abnormal findings Z00.00 Mahad Haddad MD [address] [place] [address] [id number] 03/05/2025 Mahad Haddad Annual physical exam Z00.00 ; Skin lesion L98.9 ; Back pain, unspecified back location, unspecified back pain laterality, unspecified chronicity M54.9 ; Essential hypertension I10 ; Type 2 diabetes mellitus without complication E11.9 ; Dysphagia R13.10 ; Pure hypercholesterolemia E78.00 ; Prostatism N40.0 ; Colon cancer screening Z12.11 and Depression screening Z13.31 Mahad Haddad MD [address] [place] [id number] 03/26/2025 Mahad Haddad Dysphagia R13.10 Mahad Haddad MD [address] [place] [id number] 06/04/2024 Mahad Haddad MD [address] [place] [address] [id number] 09/28/2024 Mahad Haddad MD [address] [place] [address] [id number] 11/02/2024 Mahad Haddad MD [address] [place] [address] [id number] 12/18/2024 Mahad Haddad Type 2 diabetes margi itus without complication E11.9 Mahad Haddad MD [address] [place] [id number] 12/27/2024 Mahad Haddad Assessments Encounter Date Diagnosis [...] M54.9) doing better, will continue to monitor 02/26/2025 Type 2 diabetes margi itus without [...] (ICD-10 - R13.10) will be booked at [facility] , will continue current regiment 03/05/2025 Pure [...] 03/05/2025 Complete Blood Count Auto Diff Comprehensive [place]. Panel Fast 5 Liver Panel 09/21/2024 Glucose Fasting 09/21/2024 Lipid [...] de la paz, 08/30/2025 07:30:00 AM, [address] [place] [address], [address], [place], [place], [phone], Provider Name:Mahad de la paz, 09/05/2025 09:00:00 AM, [address], [address], [place], [id number], Provider Name:Mahad Jang ier, 10/03/2025 11:00:00 AM, [address], [address] [place], [phone], Provider Name:Mahad Jang ier, 02/27/2026 07:45:00 AM, [address], [address] [place], [id number], Provider Name:Mahad Jang ier, 03/06/2026 09:30:00 AM, [address], [address] [place], [id number], Insurance Providers Payer Name Payer Address Payer Phone Subscriber Number Group Number Insured Name Patient Relationship to Insured Coverage Start Date Coverage End Date [facility] [employer] [address] [address] [place] [address] [id number] RACHAEL CARTER Self - patient is the insured MEDICARE [employer] [address] [place] [address] [id number] RACHAEL CARTER Self - patient is the [...]
== END 2025-05-14 15:15 | disposition home or self-care (01) ==
LOC: HO.HUSH 14:18
PROVIDERS: PCP Internal Medicine; Visit Provider Urology
DX: N40.1 Benign prostatic hyperplasia with lower urinary tract symptoms (principal); N13.8 Other obstructive and reflux uropathy; R39.11 Hesitancy of micturition; R31.9 Hematuria, unspecified
CPT/HCPCS: 99213

== ENCOUNTER → 2025-05-14 14:17 | Outpatient (BNVA) | payer OTHER, SELFPAY | PROVIDERS: PCP Internal Medicine; Visit Provider Urology | DX: N40.1 Benign prostatic hyperplasia with lower urinary tract symptoms (principal); N13.8 Other obstructive and reflux uropathy; R39.11 Hesitancy of micturition; Z13.9 Encounter for screening, unspecified | CPT/HCPCS: 51798; 81003 ==

== ENCOUNTER 2025-05-22 15:13 | Outpatient (AMB) | payer OTHER, SELFPAY ==
--- OUTSIDE RECORDS SUMMARY | 2024-09-14 04:30 | XMS_ITS ---
Author Organization [facility] Address [address] [place] [address] Care Team Providers Care Lead Burner Apprentice Name Role Phone Boo SIMS, Mahad Primary Care Provider Juancarlos Cohen [phone] REASON FOR VISIT 2 day prep, colon screening Problems Problem Type SNOMED Code ICD Code Onset Dates Problem Status W/U Status Risk Notes Problem History of gastrointestinal tract bypass (182562621) Intestinal bypass and anastomosis status (Z98.0) Active confirmed Problem Diverticular disease of colon (889255640) Diverticulosis of large intestine without perforation or abscess without bleeding (K57.30) Active confirmed Encounters Encounter Location Date Provider Diagnosis [facility] [place] Outpatient [address] [place], [place] [phone] 09/14/2024 Juancarlos Sher Colon cancer scree geeta [...] Notes * RACHAEL AGUSTINDOB: (74 yo M)Acc No.[id number]:09/14/2024 COLON WITH MAC Patient: RACHAEL HEWITT Provider: William Sher MD :1950 A ge:74 Y S ex:Male Date:09/14/2024 Address: [address], [place], [facility] Pcp:Mahad Haddad MD Subjective: * Chief Complaints: [...] 09/14/2024 Generated for Xena purdy/Adina/eTwilmersmitting on: 1 06:48 PM EDT
--- OUTSIDE RECORDS SUMMARY | 2024-11-10 04:55 | XMS_ITS ---
Author Organization [facility] Address [address] [place] [phone] Care Team Providers Care Supervisor Elementary Education Name Role Phone Boo SIMS, Mahad Primary Care Provider Juancarlos Cohen [phone] REASON FOR VISIT hx colon ca,screening,hx polyps Encounters Encounter Location Date Provider Diagnosis [facility] [address] [place] [phone] 11/10/2024 Juancarlos Sher Plan Of Treatment No Information Progress Notes * RACHAEL AGUSTINDOB: (74 yo M)Acc No.[id number]:11/10/2024 COLON WITH MAC Patient: Gwen BLISS RACHAEL HEALY Provider: William Sher MD :1950 A ge:74 Y S ex:Male Date:11/10/2024 Address:[address], [id number] Pcp:Mahad Haddad MD Subjective: * Chief Complaints: * 1 . Hx colon ca,screening,hx polyps. * Medical History: Objective: * Vitals: Assessment: Plan: * Treatment: * * The named appointment provid er may or may not be the originator of this progress note, and it is not deemed complete until electronically signed by the appointment provider. Sign off status: Pending * Provider: William Sher MD Date: 0 11/10/2024 Generated for Printi ng/Faxing/eTransmitting on: 1 06:47 PM EDT
--- OUTSIDE RECORDS SUMMARY | 2024-12-18 05:31 | XMS_ITS ---
Author Organization Mahad Haddad MD Address [address] [place] [address] [phone] Care Team Providers Care Air Drier Name Role Phone Mahad Haddad Primary Care Provider [phone] REASON FOR VISIT refill Medications Medication SIG [...] Location Date Provider Diagnosis Mahad Haddad MD [address] [place] [address] [phone] 12/18/2024 Mahad Haddad Type 2 diabetes mellitus [...] HCl 500 MG TAKE 1 TABLET BY [place] UT TWICE A DAY WITH MEALS Orally Once a day for 90 days Next Appt Details Provider Name:Mahad de la paz, 08/30/2025 07:30:00 AM, [address] [place] [address], [address], [phone], Provider Name:Mahad de la paz, 09/05/2025 09:00:00 AM, [address] [place] [address], [phone], Provider Name:Mahad de la paz, 10/03/2025 11:00:00 AM, [address] [place] [address], [address], [phone], Provider Name:Mahad de la paz, 02/27/2026 07:45:00 AM, [address] [place] [address], [phone], Provider Name:Mahad de la paz, 03/06/2026 09:30:00 AM, [address] [place] [address], [phone], Progress Notes * RACHAEL CARTERDOB:[birth year] (74 yo M)Acc No.[id number]:12/18/2024 Patient: RACHAEL KONG :1950 A ge:74 Y S ex:Male Address: [place], [address] * Refills Refill Atorvastatin Calcium Tablet, 40 MG, Orally, 90, TAKE 1 TABLET BY MOUTH EVERY DAY, Once a day, 90 days, Refills=3 Refill metFORMIN HCl Tablet, 500 MG, Orally, 180, TAKE 1 TABLET BY MOUTH TWICE A DAY WITH MEALS, Once a day, 90 days, Refills=3 * true * Date: Generated for Xena purdy/Adina/Aide on: 1 06:48 PM EDT
--- OUTSIDE RECORDS SUMMARY | 2024-12-27 07:44 | XMS_ITS ---
Author Organization Mahad Haddad MD Address [address] [place] [phone] Care Team Providers Care Nursing Informatics Specialist Name Role Phone Mahad Haddad Primary Care Provider REASON FOR VISIT Carotid US due . Encounters Encounter Location Date Provider Diagnosis Mahad Haddad MD [address] [place], [place] [phone] 12/27/2024 Mahad Haddad Plan Of Treatment Next Appt Details Provider Name:Mahad Jang ier, 08/30/2025 07:30:00 AM, [address], [address], [place], [phone], Provider Name:Mahad Jang shaileshr, 09/05/2025 09:00:00 AM, [address] [facility] [address], [address], [place], [phone], Provider Name:Mahad Jang ier, 10/03/2025 11:00:00 AM, [address] [place] [address] Drive, [address], [place], [phone], Provider Name:Mahad Jang ier, 02/27/2026 07:45:00 AM, [facility], [address], [place], [phone], Provider Name:Mahad Jang shaileshr, 03/06/2026 09:30:00 AM, [address] [place] [address], [address], [place], [phone], Progress Notes * RACHAEL CARTERDOB:[birth year] (74 yo M)Acc No.[id number]:12/27/2024 Patient: Gwen JOCELYNNLAURAVISHAL RACHAEL :1950 A ge:74 Y S ex:Male Address: [place], [address] * true * Date: Generated for Xena purdy/Adina/eTransmitting on: 06:47 PM EDT
--- OUTSIDE RECORDS SUMMARY | 2025-02-26 03:45 | XMS_ITS ---
Author Organization Mahad Haddad MD Address [address] [place] [address] [phone] Support Name Relationship Address Phone BooRocíon Caregiver 10 [facility] ve [address] [place] [address] [phone] Svetlana Maldonado Caregiver 10 [facility] e [address] [place] [address] [phone] NoraLeanamary Caregiver 10 [facility] e [address] [place] [address] [phone] MARSHA COOLEY Caregiver 10 [facility] e [address] [place] [address] [phone] Candido Rodriguez Caregiver 10 [facility] ve [address] [place] [address] [phone] KIKI POLANCO Caregiver [address] [facility] [address] [place] [address] [phone] Erik Vaz Caregiver 10 [facility] sherman [address] [place] [address] [phone] Jennifer Ji Caregiver 10 [facility] ve [address] [place] [address] [phone] KRISTINA CARTER Emergency Contact 8 [place] [address] RACHAEL CARTER Guarantor Unknown Care Team Providers Care Flower Shop Laborer/Designer Name Role Phone Mahad Haddad Primary Care Provider REASON FOR VISIT yearly fasting labs Encounters Encounter Location Date Provider Diagnosis Mahad Haddad MD [address] [place] [address] [phone] 02/26/2025 Mahad Haddad Blood tests for rout [...] Date Complete Blood Count Auto Diff Comprehensive [place]. Panel Fast Lipid Panel 02/26/2025 PSA,Total (Free>4and<10) 02/26/2025 Microalbumin, Random 02/26/2025 Hemoglobin A1c 02/26/2025 UA ClnCatch+Micro w/rflx Cult 02/26/2025 Next Appt Details Provider Name:Mahad de la paz, 08/30/2025 07:30:00 AM, [address] [place] [address], [address] [place] [address], [phone], Provider Name:Mahad de la paz, 09/05/2025 09:00:00 AM, [address] [place] [address], [address], [phone], Provider Name:Mahad de la paz, 10/03/2025 11:00:00 AM, [address] [place] [address], [address], [phone], Provider Name:Mahad de la paz, 02/27/2026 07:45:00 AM, [address] [place] [address], [address], [phone], Provider Name:Mahad de la paz, 03/06/2026 09:30:00 AM, [address] [place] [address], [address], [phone], Progress Notes * CHARLY CARTER:[birth year] (74 yo M)Acc No.[id number]:02/26/2025 Progress Note Patient: RACHAEL KONG Provider: Damion Haddad MD :1950 A ge:74 Y S ex:Male Date:02/26/2025 Address: [address], [id number] Subjective: * Chief Complaints: * 1 . [...] Blood Count Auto Diff L AB: Comprehensive [place]. Panel Fast L AB: Lipid Panel L AB: PSA,Total (Free>4and<10) L AB: Microalbumin, Random L AB: Hemoglobin A1c L AB: UA ClnCatch+Micro w/rflx Cult 3. T ype 2 diabetes mellitus without complication L AB: Complete Blood Count Auto Diff L AB: Comprehensive [place]. Panel Fast L AB: Lipid Panel L AB: PSA,Total (Free>4and<10) L AB: Microalbumin, Random L AB: Hemoglobin A1c L AB: UA ClnCatch+Micro w/rflx Cult 4. P rostatism L AB: Complete Blood Count Auto Diff L AB: Comprehensive [place]. Panel Fast L AB: Lipid Panel L AB: PSA,Total (Free>4and<10) L AB: Microalbumin, Random L AB: Hemoglobin A1c L AB: UA ClnCatch+Micro w/rflx Cult 5. P ure hypercholesterolemia L AB: Complete Blood Count Auto Diff L AB: Comprehensive [place]. Panel Fast L AB: Lipid Panel L [...] 02/26/2025 Generated for Xena purdy/Adina/Aide on: 1 06:46 PM EDT
--- OUTSIDE RECORDS SUMMARY | 2025-03-05 05:30 | XMS_ITS ---
Author Organization Mahad Haddad MD Address [address] [place] [phone] Support Name Relationship Address Phone Mahad Haddad [facility]giver [facility] [address] [place] [phone] Maldonado Mota Caregiver [facility] [address] [place] [phone] Callie Melendez Caregiver [facility] [address] [place] [phone] MARSHA COOLEY Caregiver [facility] [address] [place] [phone] Candido Rodriguez Caregiver [facility] [address] [place] [phone] KIKI POLANCO Caregiver [address] [facility] [address] [place] [phone] Erik Vaz Caregiver [facility] sherman [address] [place] [phone] Jennifer Ji Caregiver [facility] ve [address] [place] [phone] KRISTINA CARTER Emergency Contact [address] [place] [address] RACHAEL CARTER Guarantor Unknown [phone] Care Team Providers Care White Washer Piler Name Role Phone Mahad Haddad Primary Care Provider [phone] Allergies No Known Allergies REASON FOR VISIT [...] dissolve Sublingual Once a day Active Pen [place] 33G X 4 MM as directed sq [...] Status W/U Status Risk Notes Problem Dysphagia (23206581) Dysphagia (R13.10) Active confirmed Vital Signs Blood pressure systolic 152 mm Hg 03/05/20 25 Blood pressure diastolic 68 mm Hg 025 Height 68 in 03/05/2025 Weight 216 lbs 03/05/2025 BMI 32.84 kg/m2 03/05/2025 Encounters Encounter Location Date Provider Diagnosis Mahad Haddad MD [address] [place] [address] Drive [address] [place] [phone] 03/05/2025 Mahad Haddad Annual physical exam Z00.00 [...] (ICD-10 - R13.10) will be booked at [facility] , will continue current regiment 03/05/2025 Pure [...] Name:Mahad de la paz, 08/30/2025 07:30:00 AM, [address] [place] [address], [address], [place], [place], [phone], Provider Name:Mahad de la paz, 09/05/2025 09:00:00 AM, [address] [place] [address], [address], [place], [place], [phone], Provider Name:Mahad de la paz, 10/03/2025 11:00:00 AM, [address] [facility], [address], [place], [place], [phone], Provider Name:Mahad Jang ana cristina, 02/27/2026 07:45:00 AM, [address] [facility], [address], [place], [phone], Provider Name:Mahad Jang ana cristina, 03/06/2026 09:30:00 AM, [address] [facility], [address], [place], [phone], Progress Notes * RACHAEL CARTERDOB:[birth year] (74 yo M)Acc No.[id number]:03/05/2025 Progress Notes Patient: RACHAEL KONG Provider: Damion Haddad MD :1950 A ge:74 Y S ex:Male Date:03/05/2025 [facility] [id number] Subjective: * Chief Complaints: * A nnual [...] 1 tablet Orally Once a day [place] 33G X 4 MM Miscellaneous as directed [...] tablet Orally Once a day Taking [place] 33G X 4 MM Miscellaneous as directed [...] mg/dL Urine Blood Negative Negative - Specific [place] - Urine 1.015 1.005-1.025 - Urine Protein [...] Urine 0-2 0-2 - /LPF L ab:Comprehensive [place]. Panel Fast (Order Date - 02/26/2025) (Collection [...] GI SERIES Notes: will be booked at [facility] , will continue current regiment 7. P [...] 0 03/05/2025 Generated for Xena purdy/Adina/Aide on: 06:47 PM EDT History and Physical Notes * [...]
--- OUTSIDE RECORDS SUMMARY | 2025-03-26 07:30 | XMS_ITS ---
Author Organization Mahad Haddad MD Address [address] [place] [address] [phone] Care Team Providers Care Wire Annealer Name Role Phone Mahad Haddad Primary Care [...] referral needs to go under Shirin Quezada [phone] Referral Priority Routine REASON FOR VISIT DISCUSS LAB WORK and Upper GI in patient docs, Accompanied by son Medications Medication SIG (Take, Route, Frequency, Duration) Notes Start Date End Date Status Meclizine HCl 25 MG 1 tablet as needed Orally every 12 hrs for 30 days Active hydrALAZINE HCl 100 MG 1 tablet Orally t hree times daily Active Pen [place] 33G X 4 MM as directed [...] Location Date Provider Diagnosis Mahad Haddad MD [address] [place] [address] [phone] 03/26/2025 Mahad Haddad Dysphagia R13.10 Assessments Encounter [...] Name:Mahad de la paz, 08/30/2025 07:30:00 AM, [address] [place] [address], [phone], Provider Name:Mahad de la paz, 09/05/2025 09:00:00 AM, [address] [place] [address], [phone], Provider Name:Mahad de la paz, 10/03/2025 11:00:00 AM, [address] [place] [address], [phone], Provider Name:Mahad de la paz, 02/27/2026 07:45:00 AM, [address] [place] [address], [phone], Provider Name:Mahad de la paz, 03/06/2026 09:30:00 AM, [address] [place] [address], [phone], Progress Notes * RACHAEL CARTERDOB:[birth year] (74 yo M)Acc No.[id number]:03/26/2025 Progress Notes Patient: RACHAEL KONG Provider: Damion Haddad MD :1950 A ge:74 Y S ex:Male Date:03/26/2025 Address: [address] [place], [id number] Subjective: * Chief Complaints: * D ISCUSS LAB WORK and Upper GI in patient docsAccompanied by son * HPI: S ymptom(s): patient is a 74 yo male here to discuss recent lab work/ has been feeling tired. had xrays on throat at [facility]. * ROS: G eneral/Constitutional: Denies C hills. [...] 1 tablet Orally three times daily Pen [place] 33G X 4 MM Miscellaneous as [...] tablet Orally three times daily Taking Pen [place] 33G X 4 MM Miscellaneous as [...] 0 03/26/2025 Generated for Xena purdy/Adina/Aide on: 06:46 PM EDT History and Physical Notes * HPI (History of Present Illness) Category Sub-Category Detail Notes Category Not es Symptom(s) patient is a 74 yo male here to discuss recent lab work/ has been feeling tired. had xrays on throat at [facility] Examination Category Sub-Category Detail Notes Category Not [...]
--- NOTE | 2025-05-22 15:25 | HO.NEPHOV ---
Vital Signs 05/22/25 15:26 Height 5 ft 7 in Weight 212 lb BMI 33.2 BP 156/70 H Blood Pressure Location Rt brachial Position Sitting Pulse 97 Pulse Source Pulse Oximeter Pulse Oximetry (%) 97 Oxygen Delivery Method Room Air Intake Visit Reasons: 1mon f/u No labs-Conf Credit Portfolio Advisor Required: No Accompanied by: Son Allergies No Known Allergies Allergy (Verified 05/22/25 15:26) HPI Comments Details: Isaac was seen in follow up of his hypertension. His blood pressure is well controlled on current medication regimen. He is a diabetic and monitors blood sugar closely. He has not lost a lot of weight. He denies chest pain, shortness of breath, nausea, vomiting, diarrhea, edema , urinary or orthostatic symptoms. He feels well. 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 Surgical History Hx of inguinal hernia repair S/P placement of nerve stimulator Hx of surgical procedure Hx of cystoscopy Hx of lithotripsy Hx of right hemicolectomy Hx of colonoscopy (09/14/24) Hx of esophagogastroduodenoscopy Family History Father Unknown family medical history Mother Unknown family medical history Social History Are you a primary pediatric critical care nurse to a significant other at home: No Do you presently have visiting nurse or other home services: No Alcohol intake: never Patient Tobacco Use Status: Never used Tobacco Second Hand Smoke Exposure: No Advance Directives Date on File: 09/08/14 Current occupational status: disabled 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/ Review of Systems Const All systems reviewed & are unremarkable except as noted in HPI and below Physical Exam Vital Signs: Last Vital Signs Pulse 97 05/22/25 15:26 BP 156/70 H 05/22/25 15:26 Pulse Ox 97 05/22/25 15:26 Oxygen Delivery Method Room Air 05/22/25 15:26 BMI result Body Mass Index 33.2 Const General: comfortable and no acute distress Orientation/consciousness: patient oriented x3 HEENT Head: Yes normocephalic Mouth: Normal oral and palatal mucosa present Eyes EOM: EOMs intact bilaterally Neck Neck: Yes supple Resp Auscultation: clear to auscultation bilaterally Cardio Jugular venous distension: no JVD Rate: regular rate GI Palpation (GI): Soft to palpation Auscultation: normal bowel sounds General: Yes no CVA tenderness Back/Spine/Pelvis Back: no CVA tenderness Skin General skin exam: no rashes or lesions noted Neuro General: patient oriented x3 and moves all extremities Extrem General: Yes no pedal edema Results Reviewed Nephrology Results: Hgb, (14.0-18.0) 11.8 g/dl L 02/26/25 WBC, (4.8-10.8) 9.1 X10*3/uL 02/26/25 Plt Count, (160-400) 256 X10*3/uL 02/26/25 Sodium, (135-145) 139 mmol/L 04/18/25 Potassium, (3.3-5.1) 4.0 mmol/L 04/18/25 Chloride, (96-108) 103 mmol/L 04/18/25 Carbon Dioxide, (22-29) 29 mmol/L 04/18/25 BUN, (9-16) 13 mg/dL 04/18/25 Creatinine, (0.5-1.4) 0.87 mg/dL 04/18/25 Calcium, (8.4-10.2) 9.0 mg/dL 04/18/25 Urine Protein, (Neg-Trace) Negative mg/dL 02/26/25 Urine Creatinine 90.01 mg/dL 02/26/25 Assessment & Plan Assessment & Plan (1) Hypertension: Code(s): I10 - Essential (primary) hypertension Category: Medical Qualifiers: Hypertension type: essential hypertension Qualified Code(s): I10 - Essential (primary) hypertension Plan Isaac has long standing hypertension. His blood pressure is labile . He is a diabetic. He has no retinopathy or CHF. He has normal urine protein cr ratio and renal function is stable at baseline. He needs to loose weight. I increased his Carvedilol to 12.5 mg bid . Follow up appointment given Medications: Changed From carvedilol must administer with a meal/food 6.25 mg PO BID 90 days 180 tabs 3RF To carvedilol must administer with a meal/food 12.5 mg PO BID 180 tabs 3RF 90 days Coding Level of Care Code Est Pt Level 4 (06612) Diagnoses Essential hypertension I10 Hypertension type: essential hypertension
[2025-05-22 15:26] VITALS: BP 156/70; PULSE 97; O2SAT 97; BMI 33.2
--- OUTSIDE RECORDS SUMMARY | 2025-05-22 18:48 | XMS_ITS | Patient Health Record ---
Author Organization [facility] Address [address] [place] [address] Care Team Providers Care Brick Baker Name Role Phone Mahad Haddad MD Primary Care Provider Juancarlos Cohen [phone] Allergies No Known Allergies Results Component Value Reference Range Notes Glucose, Whole Blood Reviewed date:09/14/2024 02:25:32 PM Interpretation: Performing Lab:[facility], [address] [place] [phone] Notes/Report: Glucose, Whole Blood 138 60-115 mg/dL METER # : [id number] Pathology (Not yet reviewed by provider) Interpretation: Performing Lab:[facility], [address] [place] [phone] Notes/Report: Reason For Referral No Information Medications Medication SIG (Take, Route, Frequency, Duration) Notes Start Date End Date Status Acarbose 50 MG TAKE 1 TABLET BY SUDHAKAR THREE TIMES A DAY Oral; Duration: 30 Active Dicyclomine HCl 10 MG 1 or 2 capsules Or ally Every 6 hours as needed for abdominal bloating, cramps, discomfort; Duration: 30 day(s) 01/24/2024 Active Metoprolol Succinate ER 100 MG TAKE 1 TABLET BY MOUTH EVERY DAY AT NIGHT Oral; Duration: 30 Active hydrALAZINE HCl 50 MG TAKE 1 and 1/2 TAB LET BY MOUTH 3 TIMES A DAY Oral Three times a day Active Omeprazole 20 MG TAKE 1 CAPSULE BY MO [facility] TWICE A DAY FOR HEARBURN 90; Duration: 90 Active Buprenorphine HCl-Naloxone HCl 2-0.5 MG Sublingual; Duration: 19 Act sherman Losartan Potassium 100 MG Oral; Duration: 30 Active Celecoxib 200 MG Oral; Duration: 30 Active buPROPion HCl ER (XL) 150 MG TAKE 1 TABL ET BY MOUTH EVERY DAY IN THE MORNING Oral; Duration: 30 Active Pioglitazone HCl 15 MG Oral; Duration: 30 Active Lantus SoloStar 100 UNIT/ML Subcutaneous ; Duration: 90 Active Aspir-81 81mg Active Tamsulosin HCl 0.4 MG TAKE 1 CAPSULE BY MOUTH TWICE A DAY Oral; Duration: 90 Active metFORMIN HCl 1000mg Active Finasteride 5 MG Oral; Duration: 90 Active glipiZIDE 5 MG TAKE 1 TABLET EVERY DAY Oral; Duration: 30 Active Atorvastatin Calcium 40 MG TAKE 1 TABLET BY MOUTH EVERY DAY Oral; Duration: 90 Active Immunizations Vaccine Route Administration Date Status Comme nts Influenza Unknown 04/14/2021 Refused Influenza Unknown 01/24/2024 Refused Problems Problem Type SNOMED Code ICD Code Onset Dates Problem Status W/U Status Risk Notes Problem Screening for malignant neoplasm of colon (915097522) Encounter for screening for malignant neoplasm of colon (Z12.11) Active confirmed Problem History of adenomatous polyp of colon (238560804) History of adenomatous polyp of colon (Z86.010) Active confirmed Problem Abdominal bloating (494169632) Abdominal bloating (R14.0) Active confirmed Problem Diverticular disease of colon (849142174) Diverticulosis of large intestine without perforation or abscess without bleeding (K57.30) Active confirmed Problem History of malignant neoplasm of colon (864328856) Personal history of other malignant neoplasm of large intestine (Z85.038) Active confirmed Problem History of gastrointestinal tract bypass (176584867) Intestinal bypass and anastomosis status (Z98.0) Active confirmed Problem Gastroesophageal reflux disease with esophagitis (895423919) Gastroesophageal reflux disease with esophagitis (K21.0) Active confirmed Problem History of malignant neoplasm of colon (762264469) History of colon cancer (Z85.038) Active confirmed Problem Diverticulosis of colon (165190326) Diverticulosis of colon (K57.30) Active confirmed Problem Gastroesophageal reflux disease with esophagitis (disorder) (727815933) Gastroesophageal reflux disease with esophagitis without hemorrhage (K21.00) Active confirmed Encounters Encounter Location Date Provider Diagnosis [facility] Outpatient [address] [place] [address] [phone] 09/14/2024 Juancarlos Sher Colon cancer harmonye geeta [...] Insured Coverage Start Date Coverage End Date [facility] [address] [address] [place] [address] [id number] RACHAEL AGUSTIN Self - patient is the [...] in 2006 Internal hemorrhoids IDDM HTN Denies DC,CVA,Lung disease,renal disease EGD in 04/2011 with erosive esophagitis a nd HH-no Linn's esophagus Hyperlipidemia Colonoscopy in 05/2018 with removal of a tubular adenoma SBO in 02/2020 treated with NG tube--no s urgery Kidney stones Colonoscopy May 2021 Romero ited prep and one small polyp removed but not recovered for pathology Surgical History Surgery Date(Month/Year) Right colectomy for colon cancer as per [facility] Right inguinal hernia 2022-Dr. Schulz Stimulator put in back
--- OUTSIDE RECORDS SUMMARY | 2025-05-22 18:48 | XMS_ITS | Patient Health Record ---
Author Organization Mahad Haddad MD Address [address] [place] [address] [phone] Support Name Relationship Address Phone Mahad Haddad Caregiver [facility] Dri ve [address] [place] [address] [phone] Svetlana Maldonado Caregiver [facility] [address] [place] [address] [phone] Callie Melendez Caregiver [facility] [address] [address] [place] [address] [phone] YASIRVIKTORIAJI Caregiver [facility] [address] [place] [address] [phone] Candido Rodriguez Caregiver [facility] ve [address] [place] [address] [phone] KIKI POLANCO Caregiver [address] [place] [address] [phone] Erik Vaz Caregiver [address] [facility] [address] sherman [address] [place] [address] [phone] Jennifer Ji Caregiver 10 [facility] ve [address] [place] [address] [phone] KRISTINA CARTER Emergency Contact [address] [place] [address] RACHAEL CARTER Guarantor Unknown [phone] Care Team Providers Care Skein Yard Drier Name Role Phone Mahad Haddad Primary Care Provider [phone] Allergies No Known Allergies Results Component Value Reference Range Notes Glucose, finger stick Reviewed date:09/28/2024 10:01:27 AM Interpretation: Performing Lab: Notes/Report: Value 210 Glucose, Whole Blood Reviewed date:09/14/2024 12:30:34 PM Interpretation: Performing Lab:[facility], [address] [place] [phone] Notes/Report: Glucose, Whole Blood 138 60-115 mg/dL METER # : [id number] Pathology Reviewed date:09/18/2024 12:42:22 PM Interpretation: Performing Lab:[facility], [address] [place] [phone] Notes/Report: ---- Name: Rachael Sanon Age/Sex: 74/M : 1950 Unit#: [id number] Attend Dr: Juancarlos Jacobs MD Re09/14/24 Status : [facility] Location: [facility] Disch: ---- SPEC : [id number] RECD: 09/14/24 STATUS: TANI KAUFMAN NUM: [id number] KEYSHAWN: 09/14/24-[address] [facility] [address]: Juancarlos Jacobs MD ENTERED: 09/14/24-10 43 SP TYPE: Surgical [...] in 3 parts. A. Received in forma [employer] labeled ?distal transverse colon polyp? are fragments of henriquez-white soft tissue measurin g 0.1-0.4 cm in greatest dimension, forming an aggregate measuring 0.8 x 0.6 x 0.2 cm which i s wrapped in lens paper and entirely submitted for microscopic examination, multipl e pieces in cassette A. B. Received in forma [employer] [facility] labeled ?polyp near anastomosis? are 4 fragments of pink white soft tissue measuring 0.2 -0.5 cm in greatest dimension which are wrapped in lens paper and entirely submitted f or microscopic examination, 4 pieces in cassette B. C. Received in forma [employer] [facility] labeled ?proximal transverse colon polyp? are 2 [...] Rachael Sanon Age/Sex: 74/M : 1950 Unit#: [id number] Attend Dr: Juancarlos Jacobs MD Re09/14/24 Status : [facility] Location: [facility] Disch: ---- SPEC : [id number] RECD: 09/14/24 STATUS: TANI KAUFMAN NUM: [id number] KEYSHAWN: 09/14/240942 [facility] DR: Juancarlos Jacobs MD ENTERED: 09/14/24-10 43 SP TYPE: Surgical [...] pieces in cassette C2. [facility] Copies To: Mahad Haddad MD [facility] [address] [place] [address] [address] [place] [address] Juancarlos Jacobs MD [address] [place] [address] ---- Signed (signature on file) Leora Holguin 09/17/24 1235 ---- END OF REPORT Daniel Reyes date:09/25/2024 04:53:21 PM Interpretation: Performing Lab:[facility], [address] [place] [phone] Notes/Report: Hold Gold See Note Specimen held untested for 24 hours; Call to request Chemistry testing. Hemoglobin A1c Reviewed date:09/25/2024 04:53:31 PM Interpretation: Performing Lab:[address] [phone] Notes/Report: Hemoglobin A1c % 7.7 <6.0 % [...] average glucose, using the formula of the E2I-Apptthh Average Glucose study (ADAG), Diabetes Care, Vol.31,#8, 2007 Electrolytes Reviewed date:10/19/2024 12:22:07 PM Interpretation: Performing Lab:[facility], [address] [place] [phone] Notes/Report: Sodium 138 135-145 mmol/L Potassium 4.1 3.3-5.1 mmol/L Chloride 104 96-108 mmol/L Carbon Dioxide 27 22-29 mmol/L Anion Gap 11 12-20 Blood Urea Nitrogen Reviewed date:10/19/2024 12:22:27 PM Interpretation: Performing Lab:[facility], [address] [place] [phone] Notes/Report: Blood Urea Nitrogen 12 9-16 mg/dL Creatinine Reviewed date:10/19/2024 05:10:52 PM Interpretation: Performing Lab:[facility], [address] [place] [phone] Notes/Report: Creatinine 0.84 0.5-1.4 mg/dL Estimated Glomerular Filt Rate > 60 Chronic Kidney Disease: Estimated GFR < 60 mL/min/1.73m2 Severe Kidney Disease: Estimated GFR < 15 mL/min/1.73m2 Calcium Reviewed date:10/19/2024 05:11:00 PM Interpretation: Performing Lab:[address] [address] Notes/Report: Calcium 9.2 8.4-10.2 mg/dL Protein Creatinine Ratio, Ur Reviewed date:10/19/2024 05:11:12 PM Interpretation: Performing Lab:[facility], [address] [place] [phone] Notes/Report: Creatinine Urine 224.81 Total Protein Urine Random 16 <12 mg/dL Protein/Creatinine Ratio, Ur 0.07 <0.2 The spot urine protein:creatinine ratio may increase to 0.3 during normal . Complete Blood Count Auto Di ff Reviewed date:11/03/2024 09:30:06 AM Interpretation: Performing Lab:[facility], [address] [place] [phone] Notes/Report: White Blood Count 7.7 4.8-10.8 X10*3/uL [...] 0.0-0.2 /100WBC Neutrophils Absolute Auto 5.3 2.0-8.3 x10*3/u L Imm Gran Abs Auto 0.03 0.00-0.03 X10*3/uL Lymphocytes Absolute Auto 1.6 1.2-4.9 X10*3/u L Monocytes Absolute Auto 0.5 0.1-1.2 X10*3/uL Eosinophils Absolute Auto 0.1 0.0-0.4 X10*3/u L Basophils Absolute Auto 0.1 0.0-0.2 X10*3/uL NRBC Abs Auto 0.000 0.0-0.012 X10*3/uL Comprehensive Met. Panel Reviewed date:11/03/2024 09:28:51 AM Interpretation: Performing Lab:[facility], [address] [place] [phone] Notes/Report: Sodium 137 135-145 mmol/L Potassium 4.3 [...] Magnesium Reviewed date:11/02/2024 08:49:02 PM Interpretation: Performing Lab:[facility], [address] [place] [phone] Notes/Report: Magnesium 1.7 1.6-2.6 mg/dL Troponin-I High Sensitivity Reviewed date:11/02/2024 09:11:17 PM Interpretation: Performing Lab:[facility], [address] [place] [phone] Notes/Report: Troponin-I High Sensitivity < 2.7 <3.5-35.0 ng/L The [place] high sensitivity Troponin-I results should be used in conjunction with other diagnostic information such as ECG, clinical observations and information, and patient symptoms to aid in the diagnosis of [place]. Lipase Reviewed date:11/02/2024 08:49:52 PM Interpretation: Performing Lab:[facility], [address] [place] [phone] Notes/Report: Lipase 15 8-78 U/L UA ClnCatch+Micro w/rflx Cul t Reviewed date:11/03/2024 09:29:07 AM Interpretation: Performing Lab:[facility], [address] [place] [phone] Notes/Report: [id number] Urine, Clean Catch Color Urine Yellow Appearance Urine Clear PH 5.5 5.0-9.0 Glucose Urine UA >=1000 Negative mg/dL Urine Blood Negative Negative Specific [place] - Urine >= 1.030 1.005-1.025 Urine Protein Negative Neg-Trace mg/dL Urine Ketones Negative Negative mg/dL Nitrite Urine Negative Negative Leukocyte Esterase Urine Negative Negative XR KUB Reviewed date:11/02/2024 09:10:21 PM Interpretation: Performing Lab: Notes/Report: [address] [address] XRay Report Signed Patient: Rachael Sanon MR#: M [id number] : 1950 Acct:[id number] Age/Sex: 74 / M ADM Date: 11/02/24 Loc: .ED Attending Dr: Ordering Physician: Landy Rutledge CNP Date of Service: 11/02/24 Procedure(s): XR KUB Accession Number(s): [id number] cc: Landy Rutledge CNP; Mahad Haddad MD [...] 11/02/24 1115 DD/ 1027 TD/TT: 11/02/24 1055 Professor Of Public Administration: [address] [address] XRay Report Signed Patient: Rachael Sanon MR#: M [id number] : 1950 Acct:[id number] Age/Sex: 74 / M ADM Date: 11/02/24 Loc: HO.ED Attending Dr: Ordering Physician: Landy Rutledge CNP Date of Service: 11/02/24 Procedure(s): XR KUB Accession Number(s): [id number] cc: Landy Rutledge CNP; Mahad Haddad MD [...] 11/02/24 1115 DD/ 1027 TD/TT: 11/02/24 1055 Professor Of Public Administration: XR chest 2V Reviewed date:11/03/2024 09:28:31 AM Interpretation: Performing Lab: Notes/Report: [address] [address] XRay Report Signed Patient: Rachael Sanon MR#: M [id number] : 1950 Acct:[id number] Age/Sex: 74 / M ADM Date: 11/02/24 Loc: HO.ED Attending Dr: Ordering Physician: Landy Rutledge CNP Date of Service: 11/02/24 Procedure(s): XR chest 2V Accession Number(s): [id number] cc: Landy Rutledge CNP; Mahad Haddad MD [...] 11/02/24 1112 DD/ 1040 TD/TT: 11/02/24 1055 Professor Of Public Administration: [address] [address] XRay Report Signed Patient: Rachael Sanon MR#: M [id number] : 1950 Acct:[id number] Age/Sex: 74 / M ADM Date: 11/02/24 Loc: HO.ED Attending Dr: Ordering Physician: Landy Rutledge CNP Date of Service: 11/02/24 Procedure(s): XR teri st 2V Accession Number(s): [id number] cc: Landy Rutledge [employer] CONSULTANT; Mahad Haddad MD EXAMINATION: XR CHEST CLINICAL [...] 11/02/24 1112 DD/ 1040 TD/TT: 11/02/24 1055 Professor Of Public Administration: ABHINAV ClnCatch+Micro w/rflx Cul t Reviewed date:11/03/2024 09:32:21 AM Interpretation: Performing Lab:[facility], [address] [place] [phone] Notes/Report: [id number] 1036 Urine, Clean Catch Color Urine Yellow Appearance Urine Clear PH 5.5 5.0-9.0 Glucose Urine UA >=1000 Negative mg/dL Urine Blood Negative Negative Specific [place] - Urine >= 1.030 1.005-1.025 Urine Protein Negative Neg-Trace mg/dL Urine Ketones Negative Negative mg/dL Nitrite Urine Negative Negative Leukocyte Esterase Urine Negative Negative RBC Urine 0-2 0-2 /HPF WBC Urine 0-5 0-5 /HPF Squamous Epithelial Cell Urine 0-2 0-2 /HPF Bacteria Urine None Seen None Seen Hyaline Casts Urine 0-2 0-2 /LPF Glucose, Whole Blood Reviewed date:11/06/2024 12:20:28 PM Interpretation: Performing Lab:[facility], [address] [place] [phone] Notes/Report: Glucose, Whole Blood 176 60-115 mg/dL METER # : [id number] Pathology Reviewed date:11/08/2024 10:59:39 AM Interpretation: Performing Lab:[facility], [address] [place] [phone] Notes/Report: ---- Name: Rachael Sanon Age/Sex: 74/M : 1950 Unit#: [id number] Attend Dr: Rafita Garland MD Re11/05/24 Status : [facility] Location: [facility] Disch: ---- SPEC : [id number] RECD : 11/05/24 STATUS: TANI KAUFMAN NUM: [id number] KEYSHAWN: 11/05/24-[address] [facility] [address]: Rafita Garland MD ENTERED: 11/05/24-07 08 SP TYPE: Surgical OTHR DR: Mahad Haddad [...] ed intradepartmentally. Copies To: Rafita Garland MD [facility] [address] [place] [address] Mahad Haddad MD [facility] [address] [place] [address] [address] [place] [address] ---- Signed (signature on file) Effie Newman MD 11/06/24 3849 ---- END OF REPORT US carotid duplex BI Reviewed date:02/14/2025 05:17:19 PM Interpretation: Performing Lab: Notes/Report: [address] [address] Ultrasound Report Signed Patient: Rachael Sanon MR#: M [id number] : 1950 Acct:[id number] Age/Sex: 74 / M ADM Date: 02/04/25 Loc: HO.US Attending Dr: Mahad Haddad MD Ordering Physician: Mahad Haddad MD Date of Service: 02/04/25 Procedure(s): US carotid duplex BI Accession Number(s): [id number] cc: Mahad Haddad MD EXAMINATION: US EXTRACRANIAL [...] 03:54 PM EDT RP Dictated By: Unruly Loyd MD Signed By: <Electronically signed by Unruly Cary MD in OV> 02/04/25 1554 DD/ 1524 TD/TT: 02/04/25 1536 Professor Of Public Administration: [place] [address] Ultrasound Report Signed Patient: Rachael Sanon MR#: M [id number] : 1950 Acct:[id number] Age/Sex: 74 / M ADM Date: 02/04/25 Loc: HO.US Attending Dr: Mahad Haddad MD Ordering Physician: Mahad Haddad MD Date of Service: 02/04/25 Procedure(s): US car otid duplex BI Accession Number(s): [id number] cc: Mahad Haddad MD EXAMINATION: US EXTRACRANIAL [...] 02/04/25 1554 DD/ 1524 TD/TT: 02/04/25 1536 Professor Of Public Administration: CT abdomen pelvis wo con Reviewed date:02/14/2025 04:17:53 PM Interpretation: Performing Lab: Notes/Report: [address] [address] [address] Scan Report Signed Patient: Rachael Sanon MR#: M [id number] : 1950 Acct:[id number] Age/Sex: 74 / M ADM Date: 02/12/25 Loc: HO.CT Attending Dr: Maldonado Mota MD Ordering Physician: Maldonado Mota MD Date of Service: 02/12/25 Procedure(s): CT abdomen pelvis wo IV con Accession Number(s): [id number] cc: Mahad Haddad MD; Maldonado Mota MD Report Number: [id number]: Total DLP = 594.00 mGy-cm EXAMINATION: CT [...] 02/12/25 1724 DD/ 1539 TD/TT: 02/12/25 1648 Professor Of Public Administration: [place] [address] CT Scan Report Signed Patient: Rachael Sanon MR#: M [id number] : 1950 Acct:[id number] Age/Sex: 74 / M ADM Date: 02/12/25 Loc: HO.CT Attending Dr: Maldonado Mota MD Ordering Physician: Maldonado Mota MD Date of Service: 02/12/25 Procedure(s): CT abd omen pelvis wo IV con Accession Number(s): [id number] cc: Mahad Haddad MD; Maldonado Mota MD Report Number: [id number]: Total DLP = 594.00 mGy-cm EXAMINATION: CT [...] 02/12/25 1724 DD/ 1539 TD/TT: 02/12/25 1648 Professor Of Public Administration: Complete Blood Count Auto Di ff Reviewed date:02/26/2025 02:51:23 PM Interpretation: Performing Lab:[facility], [address] [place] [phone] Notes/Report: White Blood Count 9.1 4.8-10.8 X10*3/uL [...] 0.0-0.2 /100WBC Neutrophils Absolute Auto 6.8 2.0-8.3 x10*3/u L Imm Gran Abs Auto 0.03 0.00-0.03 X10*3/uL Lymphocytes Absolute Auto 1.5 1.2-4.9 X10*3/u L Monocytes Absolute Auto 0.5 0.1-1.2 X10*3/uL Eosinophils Absolute Auto 0.2 0.0-0.4 X10*3/u L Basophils Absolute Auto 0.1 0.0-0.2 X10*3/uL NRBC Abs Auto 0.000 0.0-0.012 X10*3/uL Comprehensive Davis. Panel Fa st Reviewed date:02/26/2025 02:50:00 PM Interpretation: Performing Lab:[facility], [address] [place] [phone] Notes/Report: Sodium 140 135-145 mmol/L Potassium 4.1 [...] Panel Reviewed date:02/26/2025 02:46:02 PM Interpretation: Performing Lab:[facility], [address] [place] [phone] Notes/Report: Triglycerides 50 <150 mg/dL Desirable Triglyceride: [...] (Free>4and<10) Reviewed date:02/26/2025 05:00:42 PM Interpretation: Performing Lab:[address] [address] Notes/Report: PSA,Total (Free>4and<10) 1.97 0.00-4.00 ng/mL A [...] Random Reviewed date:02/26/2025 02:52:27 PM Interpretation: Performing Lab:[facility], [address] [place] [phone] Notes/Report: Creatinine Urine 90.01 Microalbumin Urine 11.0 Microalbum/Creatinine Ratio Ur 12.2 <30 ug/mg cr Albumin/Creatinine Ratio Reference Ranges: Normal: < 30 ug/mg creatinine Microalbuminuria: 30 - 300 ug/mg creatinine Clinical Albuminuria: > 300 ug/mg creatinine Hemoglobin A1c Reviewed date:02/26/2025 05:00:57 PM Interpretation: Performing Lab:[address] [address] Notes/Report: Hemoglobin A1c % 8.3 <6.0 % [...] average glucose, using the formula of the N5O-Xuxzxhx Average Glucose study (ADAG), Diabetes Care, Vol.31,#8, 2007 UA ClnCatch+Micro w/rflx Cul t Reviewed date:02/26/2025 02:54:43 PM Interpretation: Performing Lab:[facility], [address] [place] [phone] Notes/Report: [id number] Urine, Clean Catch Color Urine Yellow Appearance Urine Clear PH 8.5 5.0-9.0 Glucose Urine UA Negative Negative mg/dL Urine Blood Negative Negative Specific [place] - Urine 1.015 1.005-1.025 Urine Protein Negative Neg-Trace mg/dL Urine Ketones Negative Negative mg/dL Nitrite Urine Negative Negative Leukocyte Esterase Urine Negative Negative RBC Urine 0-2 0-2 /HPF WBC Urine 0-5 0-5 /HPF Squamous Epithelial Cell Urine 0-2 0-2 /HPF Bacteria Urine None Seen None Seen Hyaline Casts Urine 0-2 0-2 /LPF Electrolytes Reviewed date:04/19/2025 12:34:46 PM Interpretation: Performing Lab:[facility], [address] [place] [phone] Notes/Report: Sodium 139 135-145 mmol/L Potassium 4.0 3.3-5.1 mmol/L Chloride 103 96-108 mmol/L Carbon Dioxide 29 22-29 mmol/L Anion Gap 11 12-20 Blood Urea Nitrogen Reviewed date:04/21/2025 05:39:01 PM Interpretation: Performing Lab:[facility], [address] [place] [phone] Notes/Report: Blood Urea Nitrogen 13 9-16 mg/dL Creatinine Reviewed date:04/19/2025 12:33:49 PM Interpretation: Performing Lab:[facility], [address] [place] [phone] Notes/Report: Creatinine 0.87 0.5-1.4 mg/dL Estimated Glomerular Filt Rate > 60 Chronic Kidney Disease: Estimated GFR < 60 mL/min/1.73m2 Severe Kidney Disease: Estimated GFR < 15 mL/min/1.73m2 Calcium Reviewed date:04/19/2025 12:33:24 PM Interpretation: Performing Lab:[facility], [address] [place] [phone] Notes/Report: Calcium 9.0 8.4-10.2 mg/dL Reason For Referral Reason Dysphagia Diagnosis 1 Dysphagia (R13.10) Referral Organization Mahad Haddad MD Referring Provider First Name Mahad Referring Provider Last Name Boo Referring Provider Speciality Internal M edicine Referred Provider [facility], [facility] Referred Provider Specialty Otolaryngolo gy General Notes AngelMegan 1 03:10:31 PM > spoke with office was told ins referral needs to go under Shirin Quezada [phone] Referral Priority Routine Medications Medication SIG (Take, Route, Frequency, Duration) Notes Start Date End Date Status hydrALAZINE HCl 100 MG 1 tablet Orally t hree times daily Active Pen Napoleon 33G X 4 MM as directed sq [...] morning Orally Once a day 10/10/2020 Active BD Pen Needle Theresa 2nd Gen 32G X 4 MM USE TWICE A DAY 30 DAYS DIRECTED for 50 Active Immunizations Vaccine Route Administration Date Status [...] Problem Status W/U Status Risk Notes Problem 29232787 Prostatism (N40.0) Active confirmed Problem Anxiety (38343914) Anxiety (F41.9) Active confirmed Problem Dysphagia (95824193) Dysphagia (R13.10) Active confirmed Problem 675893786 Diverticulitis (K57.92) Active confirmed Problem 17385615 Irritable bowel syndrome without diarrhea (K58.9) Active confirmed Problem 41332729 Lumbar disc dise ase (M51.9) Active confirmed Problem 04792695 Essential hypert ension (I10) Active confirmed Problem 43995778 Type 2 diabetes mellitus without complication (E11.9) Active confirmed Problem 66569700 Memory loss (R41.3) Active confirmed Problem 754040480 History of colon cancer (Z85.038) Active confirmed Problem Dysthymia (86875550) Dysthymia (F34.1) Active confirmed Problem 36773838 Heart burn (R12) Active confirmed Problem 230330453 Pure hypercholesterolemia (E78.00) Active confirmed Problem 668734265 Back pain, unspe cified back location, unspecified back pain laterality, unspecified chronicity (M54.9) Active confirmed Problem 268155172 BMI 32.0-32.9,ad ult (Z68.32) Active confirmed Problem Psychoactive substance dependence (7418229) Drug dependence (F19.20) Active confirmed Problem 813946011 SBO (small bowel obstruction) (K56.609) Active confirmed Problem 961006129 Dry eyes, bilate ral (H04.123) Active confirmed Vital Signs Blood pressure diastolic 80 mm Hg 03/26/2025 Height 68 in 03/26/2025 Blood pressure systolic 116 mm Hg 03/26/2025 Weight 216 lbs 03/26/2025 BMI 32.84 kg/m2 03/26/2025 Encounters Encounter Location Date Provider Diagnosis Mahad Haddad MD [address] [place] [address] Drive [address] [place] [id number] 09/21/2024 Mahad Haddad Type 2 diabetes margi itus without complication E11.9 and Pure hypercholesterolemia E78.00 Mahad Haddad MD [address] [place] [address] Drive [address] [place] [address] [id number] 02/26/2025 Mahad Haddad Blood tests for rout ine general physical examination Z00.00 ; Essential hypertension I10 ; Type 2 diabetes mellitus without complication E11.9 ; Prostatism N40.0 and Pure hypercholesterolemia E78.00 Mahad Haddad MD [address] [place] [address] Drive [address] [place] [address] [id number] 09/28/2024 Mahad Haddad Type 2 diabetes margi itus without complication E11.9 and Encounter for general adult medical examination without abnormal findings Z00.00 Mahad Haddad MD [address] [facility] [address] [place] [id number] 03/05/2025 Mahad Haddad Annual physical exam Z00.00 ; Skin lesion L98.9 ; Back pain, unspecified back location, unspecified back pain laterality, unspecified chronicity M54.9 ; Essential hypertension I10 ; Type 2 diabetes mellitus without complication E11.9 ; Dysphagia R13.10 ; Pure hypercholesterolemia E78.00 ; Prostatism N40.0 ; Colon cancer screening Z12.11 and Depression screening Z13.31 Mahad Haddad MD [address] [facility] [address] [place] [id number] 03/26/2025 Mahad Haddad Dysphagia R13.10 Mahad Haddad MD [address] [id number] 06/04/2024 Mahad Haddad MD [address] [facility] [address] [place] [id number] 09/28/2024 Mahad Haddad MD [address] [id number] 11/02/2024 Mahad Haddad MD [address] [id number] 12/18/2024 Mahad Haddad Type 2 diabetes margi itus without complication E11.9 Mahad Haddad MD [address] [facility] [address] [place] [address] [id number] 12/27/2024 Mahad Haddad Assessments Encounter Date Diagnosis [...] 03/05/2025 Complete Blood Count Auto Diff Comprehensive Davis. Panel Fast Liver Panel 09/21/2024 Glucose Fasting 09/21/2024 Lipid Panel 02/26/2025 Lipid Panel with Reflex 09/21/2024 PSA,Total (Free>4and<10) 02/26/2025 Microalbumin, Random 02/26/2025 CT abdomen pelvis wo/w con 10/13/2023 MR head/brain wo con 05/03/2024 XR KUB 10/11/2023 Hemoglobin A1c 02/26/2025 Hemoglobin A1c 09/21/2024 UA ClnCatch+Micro w/rflx Cult 02/26/2025 Future Test Test Name Order Date US CAROTID BILATERAL DOPPLER 01/30/2025 Next Appt Details Provider Name:Mahad Jang shaileshr, 08/30/2025 07:30:00 AM, [address] [place] [address], Suite [facility] [place], [place], [phone], Provider Name:Mahad Camara Laine ier, 09/05/2025 09:00:00 AM, [address] [place] [address], Suite [facility] [place], [place], [phone], Provider Name:Mahad Camara Laine ier, 10/03/2025 11:00:00 AM, [address] [place] [address], Suite [facility] [place], [place], [phone], Provider Name:Mahad Camara Laine ier, 02/27/2026 07:45:00 AM, [address] [place] [address], Suite [facility] [place], [place], [phone], Provider Name:Mahad Hoa Laine ier, 03/06/2026 09:30:00 AM, [address] [place] [address], [address] [place] [address], [phone], Insurance Providers Payer Name Payer Address Payer Phone Subscriber Number Group Number Insured Name Patient Relationship to Insured Coverage Start Date Coverage End Date [facility] [employer] [address] [address] [place] [address] [id number] RACHAEL CARTER Self - patient is the insured MEDICARE [employer] [address] [place] [id number] RACHAEL CARTER Self - patient is the insured Medical (General) History Medical History History ICD Code HAD COLON RESECTION DR [place] FOR LARGE POLYPS and adenocarcinoma [address] BAYLEE jacobs does colonoscopy every 2 years colonoscopy w/Dr. Jacobs on - repeat in 3 years, Colonoscopy done 05/09/18 repeat 2-[address] Jacobs09/16/24 colonoscopy repeat 2-3y 05/27/21 coloscopy completed, 3yr repeat (2023)
== END 2025-05-22 15:51 | disposition home or self-care (01) ==
LOC: HO.HKA 15:14
PROVIDERS: PCP Internal Medicine; Visit Provider Internal Medicine Nephrology
DX: I10 Essential (primary) hypertension (principal)
CPT/HCPCS: 99214

== ENCOUNTER 2025-05-28 10:47 | Outpatient (AMB) | payer MEDICARE, SELFPAY ==
--- OUTSIDE RECORDS SUMMARY | 2024-06-04 09:06 | XMS_ITS ---
Author Organization Mahad Haddad MD Address [address] [place] [phone] Care Team Providers Care Cash Grain Farmer Name Role Phone Mahad Haddad Primary Care Provider REASON FOR VISIT MRI and [facility] Encounters Encounter Location Date Provider Diagnosis Mahad Haddad MD [address] [place] [phone] 06/04/2024 Mahad Haddad Plan Of Treatment Next Appt Details Provider Name:Mahad Jang ier, 08/30/2025 07:30:00 AM, [address], [address], [place], [place], [phone], Provider Name:Mahad Jang shaileshr, 09/05/2025 09:00:00 AM, [address] [facility], [address], [place], [place], [phone], Provider Name:Mahad Jang shaileshr, 10/03/2025 11:00:00 AM, [address] [facility], [address], [place], [phone], Provider Name:Mahad Leivarose cashr, 02/27/2026 07:45:00 AM, [address] [facility], [address], [place], [phone], Provider Name:Mahad Jang ana cristina, 03/06/2026 09:30:00 AM, [address] [place] [address], [address], [place], [phone], Progress Notes * RACHAEL CARTERDOB:[birth year] (73 yo M)Acc No.[id number]:06/04/2024 Patient: Gwen BLISS RACHAEL :1950 A ge:73 Y S ex:Male Address:[address], [address] * true * Date: Generated for Xena purdy/Adina/eTransmitting on: 01:12 PM EDT
--- OUTSIDE RECORDS SUMMARY | 2024-09-14 04:30 | XMS_ITS ---
Author Organization [facility] Address [address] [place] [address] Care Team Providers Care Coordinator Integrated Marketing Name Role Phone Boo SIMS, Mahad Primary Care Provider Juancarlos Cohen [phone] REASON FOR VISIT 2 day prep, colon screening Problems Problem Type SNOMED Code ICD Code Onset Dates Problem Status W/U Status Risk Notes Problem History of gastrointestinal tract bypass (005513252) Intestinal bypass and anastomosis status (Z98.0) Active confirmed Problem Diverticular disease of colon (583334857) Diverticulosis of large intestine without perforation or abscess without bleeding (K57.30) Active confirmed Encounters Encounter Location Date Provider Diagnosis [facility] [place] Outpatient [address] [place], [place] [phone] 09/14/2024 Juancarlos Sher Colon cancer scree geeta [...] No Information Progress Notes * RACHAEL AGUSTINDOB: (74 yo M)Acc No.[id number]:09/14/2024 COLON WITH MAC Patient: RACHAEL HEWITT Provider: William Sher MD :1950 A ge:74 Y S ex:Male Date:09/14/2024 Address: [address], [place], [facility] Pcp:Mahad Haddad MD Subjective: * Chief Complaints: * 1 . 2 day prep, colon screening. * Medical History: Objective: * Vitals: Assessment: * Assessment: 1. C olon cancer [...] O ther hemorrhoids - K64.8 Plan: * Treatment: * Procedure Codes: 4 5385 LESION REMOVAL COLONOSCOPY, Modifiers: PT , 0529F INTRVL 3+YRS PTS CLNSCP DOCD, 0528F RCMND FLW-UP 10 YRS DOCD, Modifiers: 1P * * The named appointment provid er may or may not be the originator of this progress note, and it is not deemed complete until electronically signed by the appointment provider. Sign off status: Pending * Provider: William Sher MD Date: 0 09/14/2024 Generated for Xena purdy/Adina/eTwilmersmitting on: 1 01:12 PM EDT
--- OUTSIDE RECORDS SUMMARY | 2024-09-21 03:30 | XMS_ITS ---
Author Organization Mahad Haddad MD Address [address] [place] [phone] Support Name Relationship Address Phone AbbiecloverRocío sorian Caregiver [facility] D[address] ve [address] [place] [phone] Svetalna Maldonado Caregiver [facility] [address] [place] [phone] EnLeana stephenmary Caregiver [facility] [address] [place] [phone] MARSHA COOLEY Caregiver [facility] [address] [place] [phone] Candido Rodriguez Caregiver [facility] [address] [place] [phone] KIKI POLANCO Caregiver [address] [facility] [address] [place] [phone] Erik Vaz Caregiver [facility] sherman [address] [place] [phone] Jennifer Ji Caregiver [facility] ve [address] [place] [phone] KRISTINA CARTER Emergency Contact [address] [place] [address] RACHAEL CARTER Guarantor Unknown [phone] Care Team Providers Care Clinical Training Specialist Name Role Phone Mahad Haddad Primary Care Provider REASON FOR VISIT fasting lipids Encounters Encounter Location Date Provider Diagnosis Mahad Haddad MD [address] [place] [phone] 09/21/2024 Mahad Haddad Type 2 diabetes margi [...] Details Provider Name:Mahad cashr, 08/30/2025 07:30:00 AM, [address] [place] [address], Suite [facility], [place], [place], [phone], Provider Name:Mahad Jang ier, 09/05/2025 09:00:00 AM, [address] [place] [address], Suite [facility], [place], [place], [phone], Provider Name:Mahad cashr, 10/03/2025 11:00:00 AM, [address] [place] [address], [address], [phone], Provider Name:Mahad cashr, 02/27/2026 07:45:00 AM, [address] [place] [address], Suite [facility], [place], [place], [phone], Provider Name:Mahad cashr, 03/06/2026 09:30:00 AM, [address] [place] [address], [address] [place] [address], [phone], Progress Notes * ELIZABETH CARTERDIANEDOB:[birth year] (74 yo M)Acc No.[id number]:09/21/2024 Progress Note Patient: RACHAEL KONG Provider: Damion Haddad MD :1950 A ge:74 Y S ex:Male Date:09/21/2024 Address: [address] [id number] Subjective: * Chief Complaints: * 1 . [...] 09/21/2024 Generated for Xena purdy/Adina/Marysmitting on: 1 01:11 PM EDT
--- OUTSIDE RECORDS SUMMARY | 2024-09-28 06:15 | XMS_ITS ---
Author Organization Mahad Haddad MD Address [address] [place] [address] [phone] Support Name Relationship Address Phone BooRocíon Caregiver 10 [facility] [address] ve [address] [place] [address] [phone] Maldonado Mota Caregiver [address] [facility] [address] [place] [address] [phone] NoraLeanamary Caregiver 10 [facility] [address] [place] [address] [phone] MARSHA COOLEY Caregiver 10 [facility] [address] [place] [address] [phone] Candido Rodriguez Caregiver 10 [facility] [address] [place] [address] [phone] KIKI POLANCO Caregiver [address] [facility] [address] [place] [address] [phone] Erik Vaz Caregiver [address] [facility] [address] [place] [address] [phone] Jennifer Ji Caregiver 10 [facility] ve [address] [place] [address] [phone] KRISTINA CARTER Emergency Contact [address] [place] [address] RACHAEL CARTER Guarantor Unknown [phone] Care Team Providers Care District Service Manager Name Role Phone Mahad Haddad Primary [...] day for 30 days 08/29/2023 Active Pen [place] 33G X 4 MM as directed sq [...] Location Date Provider Diagnosis Mahad Haddad MD [address] [place] [address] [phone] 09/28/2024 Mahad Haddad Type 2 diabetes mellitus [...] Name:Mahad de la paz, 08/30/2025 07:30:00 AM, [address] [place] [address], [address], [phone], Provider Name:Mahad de la paz, 09/05/2025 09:00:00 AM, [address] [place] [address], [address], [phone], Provider Name:Mahad de la paz, 10/03/2025 11:00:00 AM, [address] [place] [address], [address], [phone], Provider Name:Mahad de la paz, 02/27/2026 07:45:00 AM, [address] [place] [address], [phone], Provider Name:Mahad Jang ier, 03/06/2026 09:30:00 AM, [address], [address], [place], [place], [phone], Progress Notes * RACHAEL CARTERDOB:[birth year] (74 yo M)Acc No.[id number]:09/28/2024 Progress Note Patient: RACHAEL KONG Provider: Damion Haddad MD :1950 A ge:74 Y S ex:Male Date:09/28/2024 Address: [address], [place], [id number] Subjective: * Chief Complaints: * 6 months DM, AWVAccompanied by son * HPI: A nnual Wellness Visit: 74 year old male presents with c/o of A nnual Wellness Visit , Annual Wellness Visit. Medical / Social History Reviewed T he following items were reviewed and updated during today's visit P ast Medical History, [place] of Care, Surgical/Hospitalization History, Current medications including [...] 1 tablet Orally Once a day Pen [place] 33G X 4 MM Miscellaneous as directed [...] tablet Orally Once a day Taking Pen [place] 33G X 4 MM Miscellaneous as directed [...] 09/28/2024 Generated for Xena purdy/Adina/Marysmitting on: 1 01:13 PM EDT History and Physical Notes * HPI (History [...] updated during today's visit: Past Medical History, [place] of Care, Surgical/Hospitalization History, Current medications including [...] for HPI/ROS submitted by the patient Floresita yoanna in Weight: No Change in hearing: No [...]
--- OUTSIDE RECORDS SUMMARY | 2024-09-28 09:53 | XMS_ITS ---
Author Organization Mahad Haddad MD Address [address] [place] [phone] Support Name Relationship Address Phone Boo Mahad Caregiver 10 [facility] [address] [place] [address] [phone] Maldonado Mota Caregiver [address] [facility] [address] [place] [address] [phone] NoraAnderscris Caregiver 10 [facility] [address] [place] [address] [phone] MARSHA COOLEY Caregiver [address] [facility] [address] [place] [address] [phone] Candido Rodriguez Caregiver 10 [facility] [address] [place] [address] [phone] KIKI POLANCO Caregiver [address] [facility] [address] [place] [address] [phone] Erik Vaz Caregiver [address] [facility] [address] [place] [address] [phone] Jennifer Ji Caregiver [facility] [address] [place] [address] [phone] KRISTINA CARTER Emergency Contact [address] [place] [address] RACHAEL CARTER Guarantor Unknown Care Team Providers Care Disability Attorney Name Role Phone Mahad Haddad Primary Care Provider REASON FOR VISIT last note Encounters Encounter Location Date Provider Diagnosis Mahad Haddad MD [address] [place] [phone] 09/28/2024 Mahad Haddad Plan Of Treatment Next Appt Details Provider Name:Mahad de la paz, 08/30/2025 07:30:00 AM, [address] [facility] [address], [address], [place], [place], [phone], Provider Name:Mahad Jang shaileshr, 09/05/2025 09:00:00 AM, [address] [facility] [address], [address], [place], [place], [phone], Provider Name:Mahad Jang shaileshr, 10/03/2025 11:00:00 AM, [address] [facility], [address], [place], [phone], Provider Name:Mahad Leivarose cashr, 02/27/2026 07:45:00 AM, [address] [place] [address], [address], [place], [phone], Provider Name:Mahad Jang shaileshr, 03/06/2026 09:30:00 AM, [address] [place] [address], [address], [place], [phone], Progress Notes * RACHAEL CARTERDOB:[birth year] (74 yo M)Acc No.[id number]:09/28/2024 Patient: Gwen BLISS RACHAEL :1950 A ge:74 Y S ex:Male Address:[address], [place], [address] * true * Date: Generated for Xena purdy/Adina/eTransmitting on: 01:13 PM EDT
--- OUTSIDE RECORDS SUMMARY | 2024-11-02 15:43 | XMS_ITS ---
Author Organization Mahad Haddad MD Address [address] [place] [phone] Care Team Providers Care Service Shop Foreman Name Role Phone Mahad Haddad Primary Care Provider [phone] REASON FOR VISIT ER Encounters Encounter Location Date Provider Diagnosis Mahad Haddad MD [address] [facility] [address] [place], [place] [phone] 11/02/2024 Mahad Haddad Plan Of Treatment Next Appt Details Provider Name:Mahad de la paz, 08/30/2025 07:30:00 AM, [address], [address], [place], [place], [phone], Provider Name:Mahad Jang shaileshr, 09/05/2025 09:00:00 AM, [address] [facility], [address], [place], [place], [phone], Provider Name:Mahad Jang ier, 10/03/2025 11:00:00 AM, [address] [place] [address], [address], [place], [phone], Provider Name:Mahad Jang shaileshr, 02/27/2026 07:45:00 AM, [address] [place] [address], [address], [place], [phone], Provider Name:Mahad Jang shaileshr, 03/06/2026 09:30:00 AM, [address] [place] [address], [address], [place], [phone], Progress Notes * RACHAEL CARTERDOB:[birth year] (74 yo M)Acc No.[id number]:11/02/2024 Patient: Gwen BLISS RACHAEL :1950 A ge:74 Y S ex:Male Address: [address], [place], [address] * true * Date: Generated for Xena purdy/Adina/eTransmitting on: 01:11 PM EDT
--- OUTSIDE RECORDS SUMMARY | 2024-11-10 04:55 | XMS_ITS ---
Author Organization [facility] Address [address] [place] [phone] Care Team Providers Care Wholesaler Name Role Phone Boo SIMS, Mahad Primary Care Provider Juancarlos Cohen [phone] REASON FOR VISIT hx colon ca,screening,hx polyps Encounters Encounter Location Date Provider Diagnosis [facility] [address] [place] [phone] 11/10/2024 Juancarlos Sher Plan Of Treatment No Information Progress Notes * RACHAEL AGUSTINDOB: (74 yo M)Acc No.[id number]:11/10/2024 COLON WITH MAC Patient: Gwen BLISS RACHAEL HEALY Provider: William Sher MD :1950 A ge:74 Y S ex:Male Date:11/10/2024 Address:[address], [id number] Pcp:Mahad Haddad MD Subjective: * Chief Complaints: [...] 11/10/2024 Generated for Printi ng/Faxing/eTransmitting on: 1 01:11 PM EDT
--- OUTSIDE RECORDS SUMMARY | 2024-12-18 05:31 | XMS_ITS ---
Author Organization Mahad Haddad MD Address [address] [place] [address] [phone] Support Name Relationship Address Phone Mahad Haddad Caregiver [facility] [address] [place] [address] [phone] Maldonado Mota Caregiver [facility] [address] [place] [address] [phone] NoranAderscris Caregiver [facility] [address] [place] [address] [phone] MARSHA COOLEY Caregiver [facility] [address] [place] [address] [phone] Candido Rodriguez Caregiver [facility] [address] [place] [address] [phone] KIKI POLANCO Caregiver [address] [facility] [address] [place] [address] [phone] Erik Vaz Caregiver 10 [facility] sherman [address] [place] [address] [phone] Jennifer Ji Caregiver [facility] ve [address] [place] [address] [phone] KRISTINA CARTER Emergency Contact [address] [place] [address] RACHAEL CARTER Guarantor Unknown Care Team Providers Care Physician/Ophthalmologist Name Role Phone Mahad Haddad Primary Care [...] Date Provider Diagnosis Mahad Haddad MD [address] [place] [address] [phone] 12/18/2024 Mahad Haddad Type 2 diabetes mellitus [...] Name:Mahad de la paz, 08/30/2025 07:30:00 AM, [address] [place] [address], [address], [phone], Provider Name:Mahad de la paz, 09/05/2025 09:00:00 AM, [address] [place] [address], [phone], Provider Name:Mahad de la paz, 10/03/2025 11:00:00 AM, [address] [place] [address], [address], [phone], Provider Name:Mahad de la paz, 02/27/2026 07:45:00 AM, [address] [place] [address], [phone], Provider Name:Mahad de la paz, 03/06/2026 09:30:00 AM, [address] [place] [address], [phone], Progress Notes * RACHAEL CARTERDOB:[birth year] (74 yo M)Acc No.[id number]:12/18/2024 Patient: RACHAEL KONG :1950 A ge:74 Y S ex:Male Address: [place], [address] * Refills Refill Atorvastatin Calcium Tablet, 40 MG, Orally, 90, TAKE 1 TABLET BY MOUTH EVERY DAY, Once a day, 90 days, Refills=3 Refill metFORMIN HCl Tablet, 500 MG, Orally, 180, TAKE 1 TABLET BY MOUTH TWICE A DAY WITH MEALS, Once a day, 90 days, Refills=3 * true * Date: Generated for Xena purdy/Adina/Aide on: 1 01:13 PM EDT
--- OUTSIDE RECORDS SUMMARY | 2024-12-27 07:44 | XMS_ITS ---
Author Organization Mahad Haddad MD Address [address] [place] [phone] Care Team Providers Care Stiff Leg Operator Name Role Phone Mahad Haddad Primary Care Provider REASON FOR VISIT Carotid US due . Encounters Encounter Location Date Provider Diagnosis Mahad Haddad MD [address] [place], [place] [phone] 12/27/2024 Mahad Haddad Plan Of Treatment Next Appt Details Provider Name:Mahad Jang ier, 08/30/2025 07:30:00 AM, [address], [address], [place], [phone], Provider Name:Mahad Jang shaileshr, 09/05/2025 09:00:00 AM, [address] [facility] [address], [address], [place], [phone], Provider Name:Mahad Jang ier, 10/03/2025 11:00:00 AM, [address] [place] [address] Drive, [address], [place], [phone], Provider Name:Mahad Jang ier, 02/27/2026 07:45:00 AM, [address] [facility], [address], [place], [phone], Provider Name:Mahad Jang shaileshr, 03/06/2026 09:30:00 AM, [address] [place] [address], [address], [place], [phone], Progress Notes * RACHAEL CARTERDOB:[birth year] (74 yo M)Acc No.[id number]:12/27/2024 Patient: Gwen JOCELYNNLAURAVISHAL RACHAEL :1950 A ge:74 Y S ex:Male Address: [place], [address] * true * Date: Generated for Xena purdy/Adina/eTransmitting on: 01:13 PM EDT
--- OUTSIDE RECORDS SUMMARY | 2025-02-26 03:45 | XMS_ITS ---
Author Organization Mahad Haddad MD Address [address] [place] [address] [phone] Care Team Providers Care Jig Inspector Name Role Phone Mahad Haddad Primary Care Provider REASON FOR VISIT yearly fasting labs Encounters Encounter Location Date Provider Diagnosis Mahad Haddad MD [address] [place] [address] [phone] 02/26/2025 Mahad Haddad Blood tests for rout [...] Date Complete Blood Count Auto Diff Comprehensive [place]. Panel Fast Lipid Panel 02/26/2025 PSA,Total (Free>4and<10) 02/26/2025 Microalbumin, Random 02/26/2025 Hemoglobin A1c 02/26/2025 UA ClnCatch+Micro w/rflx Cult 02/26/2025 Next Appt Details Provider Name:Mahad de la paz, 08/30/2025 07:30:00 AM, [address] [place] [address], [address] [place] [address], [phone], Provider Name:Mahad de la paz, 09/05/2025 09:00:00 AM, [address] [place] [address], [address], [phone], Provider Name:Mahad de la paz, 10/03/2025 11:00:00 AM, [address] [place] [address], [address], [phone], Provider Name:Mahad de la paz, 02/27/2026 07:45:00 AM, [address] [place] [address], [address], [phone], Provider Name:Mahad de la paz, 03/06/2026 09:30:00 AM, [address] [place] [address], [address], [phone], Progress Notes * CHARLY CARTER:[birth year] (74 yo M)Acc No.[id number]:02/26/2025 Progress Note Patient: RACHAEL KONG Provider: Damion Haddad MD :1950 A ge:74 Y S ex:Male Date:02/26/2025 Address: [address], [id number] Subjective: * Chief Complaints: * 1 . [...] Blood Count Auto Diff L AB: Comprehensive [place]. Panel Fast L AB: Lipid Panel L AB: PSA,Total (Free>4and<10) L AB: Microalbumin, Random L AB: Hemoglobin A1c L AB: UA ClnCatch+Micro w/rflx Cult 3. T ype 2 diabetes mellitus without complication L AB: Complete Blood Count Auto Diff L AB: Comprehensive [place]. Panel Fast L AB: Lipid Panel L AB: PSA,Total (Free>4and<10) L AB: Microalbumin, Random L AB: Hemoglobin A1c L AB: UA ClnCatch+Micro w/rflx Cult 4. P rostatism L AB: Complete Blood Count Auto Diff L AB: Comprehensive [place]. Panel Fast L AB: Lipid Panel L AB: PSA,Total (Free>4and<10) L AB: Microalbumin, Random L AB: Hemoglobin A1c L AB: UA ClnCatch+Micro w/rflx Cult 5. P ure hypercholesterolemia L AB: Complete Blood Count Auto Diff L AB: Comprehensive [place]. Panel Fast L AB: Lipid Panel L [...] 02/26/2025 Generated for Xena purdy/Adina/Aide on: 1 01:11 PM EDT
--- OUTSIDE RECORDS SUMMARY | 2025-03-05 05:30 | XMS_ITS ---
Author Organization Mahad Haddad MD Address [address] [place] [phone] Care Team Providers Care Pleater Name Role Phone Mahad Haddad Primary Care [...] dissolve Sublingual Once a day Active Pen [place] 33G X 4 MM as directed sq [...] Status W/U Status Risk Notes Problem Dysphagia (22428706) Dysphagia (R13.10) Active confirmed Vital Signs Blood pressure systolic 152 mm Hg 03/05/20 25 Blood pressure diastolic 68 mm Hg 025 Height 68 in 03/05/2025 Weight 216 lbs 03/05/2025 BMI 32.84 kg/m2 03/05/2025 Encounters Encounter Location Date Provider Diagnosis Mahad Haddad MD [address] [place] [address] Drive [address] [place] [phone] 03/05/2025 Mahad Haddad Annual physical exam Z00.00 [...] (ICD-10 - R13.10) will be booked at [facility] , will continue current regiment 03/05/2025 Pure [...] Name:Mahad de la paz, 08/30/2025 07:30:00 AM, [address] [place] [address], [address], [place], [place], [phone], Provider Name:Mahad de la paz, 09/05/2025 09:00:00 AM, [address] [place] [address], [address], [place], [place], [phone], Provider Name:Mahad de la paz, 10/03/2025 11:00:00 AM, [address] [facility], [address], [place], [place], [phone], Provider Name:Mahad Jang ana cristina, 02/27/2026 07:45:00 AM, [address] [facility], [address], [place], [phone], Provider Name:Mahad Jang ana cristina, 03/06/2026 09:30:00 AM, [address] [facility], [address], [place], [phone], Progress Notes * RACHAEL CARTERDOB:[birth year] (74 yo M)Acc No.[id number]:03/05/2025 Progress Notes Patient: RACHAEL KONG Provider: Damion Haddad MD :1950 A ge:74 Y S ex:Male Date:03/05/2025 Address: [facility] [id number] Subjective: * Chief Complaints: * A nnual [...] 1 tablet Orally Once a day Pen [place] 33G X 4 MM Miscellaneous as directed [...] tablet Orally Once a day Taking Pen [place] 33G X 4 MM Miscellaneous as directed [...] mg/dL Urine Blood Negative Negative - Specific [place] - Urine 1.015 1.005-1.025 - Urine Protein [...] Urine 0-2 0-2 - /LPF L ab:Comprehensive [place]. Panel Fast (Order Date - 02/26/2025) (Collection [...] GI SERIES Notes: will be booked at [facility] , will continue current regiment 7. P [...] 0 03/05/2025 Generated for Xena purdy/Adina/Aide on: 01:11 PM EDT History and Physical Notes * [...]
--- OUTSIDE RECORDS SUMMARY | 2025-03-26 07:30 | XMS_ITS ---
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 Name Role Phone Mahad Haddad Primary Care Provider [phone] Allergies No Known Allergies Reason For [...] referral needs to go under Shirin Quezada [phone] Referral Priority Routine REASON FOR VISIT DISCUSS LAB WORK and Upper GI in patient docs, Accompanied by son Medications Medication SIG (Take, Route, Frequency, Duration) Notes Start Date End Date Status Meclizine HCl 25 MG 1 tablet as needed Orally every 12 hrs for 30 days Active hydrALAZINE HCl 100 MG 1 tablet Orally t hree times daily Active Pen [place] 33G X 4 MM as directed sq [...] Location Date Provider Diagnosis Mahad Haddad MD [address] [place] [address] [phone] 03/26/2025 Mahad Haddad Dysphagia R13.10 Assessments Encounter [...] Name:Mahad de la paz, 08/30/2025 07:30:00 AM, [address] [place] [address], [phone], Provider Name:Mahad de la paz, 09/05/2025 09:00:00 AM, [address] [place] [address], [phone], Provider Name:Mahad de la paz, 10/03/2025 11:00:00 AM, [address] [place] [address], [phone], Provider Name:Mahad de la paz, 02/27/2026 07:45:00 AM, [address] [place] [address], [phone], Provider Name:Mahad de la paz, 03/06/2026 09:30:00 AM, [address] [place] [address], [phone], Progress Notes * RACHAEL CARTERDOB:[birth year] (74 yo M)Acc No.[id number]:03/26/2025 Progress Notes Patient: RACHAEL KONG Provider: Damion Haddad MD :1950 A ge:74 Y S ex:Male Date:03/26/2025 Address: [address] [place], [id number] Subjective: * Chief Complaints: * D ISCUSS LAB WORK and Upper GI in patient docsAccompanied by son * HPI: S ymptom(s): patient is a 74 yo male here to discuss recent lab work/ has been feeling tired. had xrays on throat at [facility]. * ROS: G eneral/Constitutional: Denies C [...] 1 tablet Orally three times daily Pen [place] 33G X 4 MM Miscellaneous as directed [...] tablet Orally three times daily Taking Pen [place] 33G X 4 MM Miscellaneous as directed [...] 0 03/26/2025 Generated for Xena purdy/Adina/Aide on: 01:13 PM EDT History and Physical Notes * HPI (History of Present Illness) Category Sub-Category Detail Notes Category Not es Symptom(s) patient is a 74 yo male here to discuss recent lab work/ has been feeling tired. had xrays on throat at [facility] Examination Category Sub-Category Detail Notes Category [...]
--- NOTE | 2025-05-28 10:49 | MHC.OFFVIS ---
Vital Signs 05/28/25 10:53 Height 5 ft 7 in Weight 211 lb 10.3 oz BMI 33.1 BP 180/80 H Blood Pressure Location Lt brachial Position Sitting Intake Visit Reasons: rediscuss SBO Intake Note: Patient is seen in office to re-discuss surgery regarding small bowel obstruction. Pt c/o: admits to bloating, nausea and shortness of breath, would like to discuss surgery Print Journalist Required: Yes Print Journalist Language: Meteorological Observer Services: Print Journalist Offered & Declined (son) Accompanied by: Son Allergies No Known Allergies Allergy (Verified 05/28/25 10:58) Medication List - Last Reconciled 05/28/25 by Maldonado Mota MD aspirin 81 mg PO DAILY atorvastatin 40 mg PO DAILY buprenorphine-naloxone 2-0.5 mg (Suboxone) 1 film buccal DAILY carvedilol 12.5 mg PO BID 90 days finasteride 5 mg PO DAILY 90 days hydralazine 100 mg PO TID hydrochlorothiazide 25 mg PO DAILY insulin glargine (Lantus Solostar U-100 Insulin) 15 units (0.15 mL) subcut QAM 90 days losartan 50 mg PO DAILY meclizine 25 mg PO TID PRN metformin 500 mg PO DAILY omeprazole 20 mg PO BID ondansetron HCl 4 mg PO Q6H PRN OneTouch Verio Meter (blood-glucose meter) 3 times a day NS OneTouch Verio test strips (blood sugar diagnostic) 3 times a day NS pen needle, diabetic (BD Theresa 2nd Gen Pen Needle) once a day HPI Comments Details: 74-year-old male patient previously evaluated on 03/07/2025 for partial small-bowel obstruction found on a CT abdomen and pelvis. At that time he had relatively mild symptoms and was generally feeling improved however since this time he now notes increased abdominal pain, distention, nausea without vomiting. He does report daily bowel movements without blood. In general his appetite is decreased. The pain seems to increase soon after eating at which time he needs to lay down to ease the pain. The pain sometimes will last for 24 hours or longer. Previous workup with CT abdomen and pelvis revealed an area of narrowing of the bowel with fecalization above this area. He previously underwent colon cancer surgery in 2005 in the right colon. The anastomosis was noted to be open without strictures. He returns today to discuss surgical options. [facility] Medical History Right groin pain Right inguinal hernia On beta lala at home Hx SBO DM2 (diabetes mellitus, type 2) Disc degeneration, lumbar Chronic pain syndrome Spondylosis of lumbosacral spine with radiculopathy GERD (gastroesophageal reflux disease) Obesity (BMI 30-39.9) Hypertension 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 associated with type 2 diabetes mellitus [facility] (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 Surgical History Hx of inguinal hernia repair S/P placement of nerve stimulator Hx of surgical procedure Hx of cystoscopy Hx of lithotripsy Hx of right hemicolectomy Hx of colonoscopy (09/14/24) Hx of esophagogastroduodenoscopy Family History Father Unknown family medical history Mother Unknown family medical history Social History Are you a primary direct care worker to a significant other at home: No Do you presently have visiting nurse or other home services: No Alcohol intake: never Patient Tobacco Use Status: Never used Tobacco Second Hand Smoke Exposure: No Advance Directives Date on File: 09/08/14 Current occupational status: disabled 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 Well-healed incision in the periumbilical location Inspection: Yes distended and Yes incision (Midline incision periumbilical) Palpation (GI): Soft to palpation, nontender, no guarding, not rigid and no hernias Percussion: Yes dullness to percussion Auscultation: normal bowel sounds Skin General skin exam: no rashes or lesions noted Neuro General: patient oriented x3 Extrem General: Yes no clubbing, cyanosis or edema Assessment & Plan Assessment & Plan (1) Partial small bowel obstruction: Code(s): K56.600 - Partial intestinal obstruction, unspecified as to cause Category: Medical Plan 74-year-old male patient with evidence of a partial small-bowel obstruction now with the increase symptoms of bloating, distention, anorexia and nausea. The continued symptoms are affecting his lifestyle and limiting his ability to travel. We discussed the possibility of an exploratory laparotomy with lysis of adhesions and possible bowel resection. After discussion of the procedure, risks, and alternatives, he consents to the exploratory laparotomy, lysis of adhesions, possible small-bowel resection. This will be performed as a short-stay admit at his earliest convenience. Medications: New ondansetron HCl 4 mg PO Q6H PRN 30 tabs 0RF nausea K56.600 - Partial intestinal obstruction, unspecified as to cause Coding Level of Care Code Est Pt Level 4 (00559) Diagnoses Partial small bowel obstruction K56.600
[2025-05-28 10:53] VITALS: BP 180/80; BMI 33.1
--- OUTSIDE RECORDS SUMMARY | 2025-05-28 13:11 | XMS_ITS | Clinical Summary ---
Author Organization [facility] Address [address] [place] [address] [place] [address] Phone Care Team Providers Care Right Of Way Appraiser Name Role Phone Mahad Haddad MD Primary Care Provider [phone] Allergies No known active allergies Medications acarbose [...] patient's age to complete this topic Insurance [id number] Medicare [facility] Medicare Care Teams Right Of Way Appraiser Relationship Specialty Start Date End Date Mahad Haddad MD [id number] [place] PCP - General 08/18/20
--- OUTSIDE RECORDS SUMMARY | 2025-05-28 13:12 | XMS_ITS | Patient Health Record ---
Author Organization Mahad Haddad MD Address [address] [place] [phone] Care Team Providers Care Metal Punch Press Operator Name Role Phone Mahad Haddad Primary Care Provider [phone] Allergies No Known Allergies Results Component Value Reference Range Notes Glucose, finger stick Reviewed date:09/28/2024 10:01:27 AM Interpretation: Performing Lab: Notes/Report: Value 210 Glucose, Whole Blood Reviewed date:09/14/2024 12:30:34 PM Interpretation: Performing Lab:[facility], [address] [place] [phone] Notes/Report: Glucose, Whole Blood 138 60-115 mg/dL METER # : [id number] Pathology Reviewed date:09/18/2024 12:42:22 PM Interpretation: Performing Lab:[facility], [address] [place] [phone] Notes/Report: ---- Name: Rachael Sanon Age/Sex: 74/M : 1950 Unit#: [id number] Attend Dr: Juancarlos Jacobs MD Re09/14/24 Status : [facility] Location: [facility] Disch: ---- SPEC : [id number] RECD: 09/14/24 STATUS: TANI KAUFMAN NUM: [id number] KEYSHAWN: 09/14/24-[address] [facility] [address]: Juancarlos Jacobs MD ENTERED: 09/14/24-10 [...] in 3 parts. A. Received in forma A Green Night's Sleep labeled ?distal transverse colon polyp? are fragments of henriquez-white soft tissue measurin g 0.1-0.4 cm in greatest dimension, forming an aggregate measuring 0.8 x 0.6 x 0.2 cm which i s wrapped in lens paper and entirely submitted for microscopic examination, multipl e pieces in cassette A. B. Received in forma A Green Night's Sleep labeled ?polyp near anastomosis? are 4 fragments of pink white soft tissue measuring 0.2 -0.5 cm in greatest dimension which are wrapped in lens paper and entirely submitted f or microscopic examination, 4 pieces in cassette B. C. Received in forma A Green Night's Sleep labeled ?proximal transverse colon polyp? are 2 [...] Rachael Sanon Age/Sex: 74/M : 1950 Unit#: [id number] Attend Dr: Juancarlos Jacobs MD Re09/14/24 Status : [facility] Location: [facility] Disch: ---- SPEC : [id number] RECD: 09/14/24 STATUS: TANI KAUFMAN NUM: [id number] KEYSHAWN: 09/14/240942 [facility] [address]: Juancarlos Jacobs MD ENTERED: 09/14/24-10 [...] microscopic examination, 4 pieces in cassette C2. [facility] Copies To: Mahad Haddad MD [facility] [address] [place] [address] [address] [place] [address] Juancarlos Jacobs MD [address] [place] [address] ---- Signed (signature on file) Leora Holguin 09/17/24 1235 ---- END OF REPORT Daniel Reyes date:09/25/2024 04:53:21 PM Interpretation: Performing Lab:[facility], [address] [place] [phone] Notes/Report: Hold Gold See Note Specimen held untested for 24 hours; Call to request Chemistry testing. Hemoglobin A1c Reviewed date:09/25/2024 04:53:31 PM Interpretation: Performing Lab:[address] [address] Notes/Report: Hemoglobin A1c % 7.7 <6.0 % [...] average glucose, using the formula of the A7F-Presqql Average Glucose study (ADAG), Diabetes Care, Vol.31,#8, 2007 Electrolytes Reviewed date:10/19/2024 12:22:07 PM Interpretation: Performing Lab:[facility], [address] [place] [phone] Notes/Report: Sodium 138 135-145 mmol/L Potassium 4.1 3.3-5.1 mmol/L Chloride 104 96-108 mmol/L Carbon Dioxide 27 22-29 mmol/L Anion Gap 11 12-20 Blood Urea Nitrogen Reviewed date:10/19/2024 12:22:27 PM Interpretation: Performing Lab:[facility], [address] [place] [phone] Notes/Report: Blood Urea Nitrogen 12 9-16 mg/dL Creatinine Reviewed date:10/19/2024 05:10:52 PM Interpretation: Performing Lab:[facility], [address] [place] [phone] Notes/Report: Creatinine 0.84 0.5-1.4 mg/dL Estimated Glomerular Filt Rate > 60 Chronic Kidney Disease: Estimated GFR < 60 mL/min/1.73m2 Severe Kidney Disease: Estimated GFR < 15 mL/min/1.73m2 Calcium Reviewed date:10/19/2024 05:11:00 PM Interpretation: Performing Lab:[address] [address] Notes/Report: Calcium 9.2 8.4-10.2 mg/dL Protein Creatinine Ratio, Ur Reviewed date:10/19/2024 05:11:12 PM Interpretation: Performing Lab:[facility], [address] [place] [phone] Notes/Report: Creatinine Urine 224.81 Total Protein Urine Random 16 <12 mg/dL Protein/Creatinine Ratio, Ur 0.07 <0.2 The spot urine protein:creatinine ratio may increase to 0.3 during normal . Complete Blood Count Auto Di ff Reviewed date:11/03/2024 09:30:06 AM Interpretation: Performing Lab:[facility], [address] [place] [phone] Notes/Report: White Blood Count 7.7 4.8-10.8 X10*3/uL [...] Panel Reviewed date:11/03/2024 09:28:51 AM Interpretation: Performing Lab:[facility], [address] [place] [phone] Notes/Report: Sodium 137 135-145 mmol/L Potassium 4.3 [...] Magnesium Reviewed date:11/02/2024 08:49:02 PM Interpretation: Performing Lab:[facility], [address] [place] [phone] Notes/Report: Magnesium 1.7 1.6-2.6 mg/dL Troponin-I High Sensitivity Reviewed date:11/02/2024 09:11:17 PM Interpretation: Performing Lab:[facility], [address] [place] [phone] Notes/Report: Troponin-I High Sensitivity < 2.7 <3.5-35.0 ng/L The [place] high sensitivity Troponin-I results should be used in conjunction with other diagnostic information such as ECG, clinical observations and information, and patient symptoms to aid in the diagnosis of ID. Lipase Reviewed date:11/02/2024 08:49:52 PM Interpretation: Performing Lab:[facility], [address] [place] [phone] Notes/Report: Lipase 15 8-78 U/L UA ClnCatch+Micro w/rflx Cul t Reviewed date:11/03/2024 09:29:07 AM Interpretation: Performing Lab:[facility], [address] [place] [phone] Notes/Report: [id number] 1036 Urine, Clean Catch Color Urine Yellow Appearance Urine Clear PH 5.5 5.0-9.0 Glucose Urine UA >=1000 Negative mg/dL Urine Blood Negative Negative Specific [place] - Urine >= 1.030 1.005-1.025 Urine Protein Negative Neg-Trace mg/dL Urine Ketones Negative Negative mg/dL Nitrite Urine Negative Negative Leukocyte Esterase Urine Negative Negative XR KUB Reviewed date:11/02/2024 09:10:21 PM Interpretation: Performing Lab: Notes/Report: [address] [address] XRay Report Signed Patient: Rachael Sanon MR#: M [id number] : 1950 Acct:[id number] Age/Sex: 74 / M ADM Date: 11/02/24 Loc: .ED Attending Dr: Ordering Physician: Landy Rutledge CNP Date of Service: 11/02/24 Procedure(s): XR KUB Accession Number(s): [id number] cc: Landy Rutledge CNP; Mahad Haddad MD [...] 11/02/24 1115 DD/ 1027 TD/TT: 11/02/24 1055 Rf Test Engineer: [address] [address] XRay Report Signed Patient: Rachael Sanon MR#: M [id number] : 1950 Acct:[id number] Age/Sex: 74 / M ADM Date: 11/02/24 Loc: HO.ED Attending Dr: Ordering Physician: Landy Rutledge CNP Date of Service: 11/02/24 Procedure(s): XR KUB Accession Number(s): [id number] cc: Landy Rutledge CNP; Mahad Haddad MD [...] 11/02/24 1115 DD/ 1027 TD/TT: 11/02/24 1055 Rf Test Engineer: XR chest 2V Reviewed date:11/03/2024 09:28:31 AM Interpretation: Performing Lab: Notes/Report: [address] [address] XRay Report Signed Patient: Rachael Sanon MR#: M [id number] : 1950 Acct:[id number] Age/Sex: 74 / M ADM Date: 11/02/24 Loc: HO.ED Attending Dr: Ordering Physician: Landy Rutledge CNP Date of Service: 11/02/24 Procedure(s): XR chest 2V Accession Number(s): [id number] cc: Landy Rutledge CNP; Mahad Haddad MD [...] 11/02/24 1112 DD/ 1040 TD/TT: 11/02/24 1055 Rf Test Engineer: [address] [address] XRay Report Signed Patient: Rachael Sanon MR#: M [id number] : 1950 Acct:[id number] Age/Sex: 74 / M ADM Date: 11/02/24 Loc: HO.ED Attending Dr: Ordering Physician: Landy Rutledge CNP Date of Service: 11/02/24 Procedure(s): XR teri st 2V Accession Number(s): [id number] cc: Landy Rutledge MARKETING FINANCIAL ANALYST; Mahad Haddad MD EXAMINATION: XR CHEST CLINICAL [...] 11/02/24 1112 DD/ 1040 TD/TT: 11/02/24 1055 Rf Test Engineer: ABHINAV ClnCatch+Micro w/rflx Cul t Reviewed date:11/03/2024 09:32:21 AM Interpretation: Performing Lab:[facility], [address] [place] [phone] Notes/Report: [id number] 1036 Urine, Clean Catch Color Urine Yellow Appearance Urine Clear PH 5.5 5.0-9.0 Glucose Urine UA >=1000 Negative mg/dL Urine Blood Negative Negative Specific [place] - Urine >= 1.030 1.005-1.025 Urine Protein Negative Neg-Trace mg/dL Urine Ketones Negative Negative mg/dL Nitrite Urine Negative Negative Leukocyte Esterase Urine Negative Negative RBC Urine 0-2 0-2 /HPF WBC Urine 0-5 0-5 /HPF Squamous Epithelial Cell Urine 0-2 0-2 /HPF Bacteria Urine None Seen None Seen Hyaline Casts Urine 0-2 0-2 /LPF Glucose, Whole Blood Reviewed date:11/06/2024 12:20:28 PM Interpretation: Performing Lab:[facility], [address] [place] [phone] Notes/Report: Glucose, Whole Blood 176 60-115 mg/dL METER # : [id number] Pathology Reviewed date:11/08/2024 10:59:39 AM Interpretation: Performing Lab:[facility], [address] [place] [phone] Notes/Report: ---- Name: Rachael Sanon Age/Sex: 74/M : 1950 Unit#: [id number] Attend Dr: Rafita Garland MD Re11/05/24 Status : [facility] Location: [facility] Disch: ---- SPEC : [id number] RECD : 11/05/24 STATUS: TANI KAUFMAN NUM: [id number] KEYSHAWN: 11/05/24-[address] [facility] [address]: Rafita Garland MD ENTERED: 11/05/24-07 [...] ed intradepartmentally. Copies To: Rafita Garland MD [facility] [address] [facility] [address] [place] [address] Mahad Haddad MD [facility] [address] [place] [address] [address] [place] [address] ---- Signed (signature on file) Effie Newman MD 11/06/24 5353 ---- END OF REPORT US carotid duplex BI Reviewed date:02/14/2025 05:17:19 PM Interpretation: Performing Lab: Notes/Report: [address] [address] Ultrasound Report Signed Patient: Rachael Sanon MR#: M [id number] : 1950 Acct:[id number] Age/Sex: 74 / M ADM Date: 02/04/25 Loc: HO.US Attending Dr: Mahad Haddad MD Ordering Physician: Mahad Haddad MD Date of Service: 02/04/25 Procedure(s): US carotid duplex BI Accession Number(s): [id number] cc: Mahad Haddad MD EXAMINATION: US EXTRACRANIAL [...] 02/04/25 1554 DD/ 1524 TD/TT: 02/04/25 1536 Rf Test Engineer: [place] [address] Ultrasound Report Signed Patient: Rachael Sanon MR#: M [id number] : 1950 Acct:[id number] Age/Sex: 74 / M ADM Date: 02/04/25 Loc: HO.US Attending Dr: Mahad Haddad MD Ordering Physician: Mahad Haddad MD Date of Service: 02/04/25 Procedure(s): US car otid duplex BI Accession Number(s): [id number] cc: Mahad Haddad MD EXAMINATION: US EXTRACRANIAL [...] 02/04/25 1554 DD/ 1524 TD/TT: 02/04/25 1536 Rf Test Engineer: CT abdomen pelvis wo con Reviewed date:02/14/2025 04:17:53 PM Interpretation: Performing Lab: Notes/Report: [address] [address] [address] Scan Report Signed Patient: Rachael Sanon MR#: M [id number] : 1950 Acct:[id number] Age/Sex: 74 / M ADM Date: 02/12/25 Loc: HO.CT Attending Dr: Maldonado Mota MD Ordering Physician: Maldonado Mota MD Date of Service: 02/12/25 Procedure(s): CT abdomen pelvis wo IV con Accession Number(s): [id number] cc: Mahad Haddad MD; Maldonado Mota MD Report Number: [id number]: Total DLP = 594.00 mGy-cm EXAMINATION: CT [...] 02/12/25 1724 DD/ 1539 TD/TT: 02/12/25 1648 Rf Test Engineer: [place] [address] CT Scan Report Signed Patient: Rachael Sanon MR#: M [id number] : 1950 Acct:[id number] Age/Sex: 74 / M ADM Date: 02/12/25 Loc: HO.CT Attending Dr: Maldonado Mota MD Ordering Physician: Maldonado Mota MD Date of Service: 02/12/25 Procedure(s): CT abd omen pelvis wo IV con Accession Number(s): [id number] cc: Mahad Haddad MD; Maldonado Mota MD Report Number: [id number]: Total DLP = 594.00 mGy-cm EXAMINATION: CT [...] 02/12/25 1724 DD/ 1539 TD/TT: 02/12/25 1648 Rf Test Engineer: Complete Blood Count Auto Di ff Reviewed date:02/26/2025 02:51:23 PM Interpretation: Performing Lab:[facility], [address] [place] [phone] Notes/Report: White Blood Count 9.1 4.8-10.8 X10*3/uL [...] NRBC Abs Auto 0.000 0.0-0.012 X10*3/uL Comprehensive Morral. Panel Fa st Reviewed date:02/26/2025 02:50:00 PM Interpretation: Performing Lab:[facility], [address] [place] [phone] Notes/Report: Sodium 140 135-145 mmol/L Potassium 4.1 [...] Panel Reviewed date:02/26/2025 02:46:02 PM Interpretation: Performing Lab:[facility], [address] [place] [phone] Notes/Report: Triglycerides 50 <150 mg/dL Desirable Triglyceride: [...] (Free>4and<10) Reviewed date:02/26/2025 05:00:42 PM Interpretation: Performing Lab:[address] [address] Notes/Report: PSA,Total (Free>4and<10) 1.97 0.00-4.00 ng/mL A [...] Random Reviewed date:02/26/2025 02:52:27 PM Interpretation: Performing Lab:[facility], [address] [place] [address] Notes/Report: Creatinine Urine 90.01 Microalbumin Urine 11.0 Microalbum/Creatinine Ratio Ur 12.2 <30 ug/mg cr Albumin/Creatinine Ratio Reference Ranges: Normal: < 30 ug/mg creatinine Microalbuminuria: 30 - 300 ug/mg creatinine Clinical Albuminuria: > 300 ug/mg creatinine Hemoglobin A1c Reviewed date:02/26/2025 05:00:57 PM Interpretation: Performing Lab:[address] [address] Notes/Report: Hemoglobin A1c % 8.3 <6.0 % [...] average glucose, using the formula of the V9U-Qjbplrt Average Glucose study (ADAG), Diabetes Care, Vol.31,#8, 2007 UA ClnCatch+Micro w/rflx Cul t Reviewed date:02/26/2025 02:54:43 PM Interpretation: Performing Lab:[facility], [address] [place] [phone] Notes/Report: [id number] Urine, Clean Catch Color Urine Yellow Appearance Urine Clear PH 8.5 5.0-9.0 Glucose Urine UA Negative Negative mg/dL Urine Blood Negative Negative Specific [place] - Urine 1.015 1.005-1.025 Urine Protein Negative Neg-Trace mg/dL Urine Ketones Negative Negative mg/dL Nitrite Urine Negative Negative Leukocyte Esterase Urine Negative Negative RBC Urine 0-2 0-2 /HPF WBC Urine 0-5 0-5 /HPF Squamous Epithelial Cell Urine 0-2 0-2 /HPF Bacteria Urine None Seen None Seen Hyaline Casts Urine 0-2 0-2 /LPF Electrolytes Reviewed date:04/19/2025 12:34:46 PM Interpretation: Performing Lab:[facility], [address] [place] [phone] Notes/Report: Sodium 139 135-145 mmol/L Potassium 4.0 3.3-5.1 mmol/L Chloride 103 96-108 mmol/L Carbon Dioxide 29 22-29 mmol/L Anion Gap 11 12-20 Blood Urea Nitrogen Reviewed date:04/21/2025 05:39:01 PM Interpretation: Performing Lab:[facility], [address] [place] [phone] Notes/Report: Blood Urea Nitrogen 13 9-16 mg/dL Creatinine Reviewed date:04/19/2025 12:33:49 PM Interpretation: Performing Lab:[facility], [address] [place] [phone] Notes/Report: Creatinine 0.87 0.5-1.4 mg/dL Estimated Glomerular Filt Rate > 60 Chronic Kidney Disease: Estimated GFR < 60 mL/min/1.73m2 Severe Kidney Disease: Estimated GFR < 15 mL/min/1.73m2 Calcium Reviewed date:04/19/2025 12:33:24 PM Interpretation: Performing Lab:[facility], [address] [place] [phone] Notes/Report: Calcium 9.0 8.4-10.2 mg/dL Reason For [...] referral needs to go under Shirin Quezada [phone] Referral Priority Routine Medications Medication SIG (Take, Route, Frequency, Duration) Notes Start Date End Date Status hydrALAZINE HCl 100 MG 1 tablet Orally t hree times daily Active Pen [place] 33G X 4 MM as directed sq [...] Problem Status W/U Status Risk Notes Problem 64040111 Prostatism (N40.0) Active confirmed Problem Anxiety (48042670) Anxiety (F41.9) Active confirmed Problem Dysphagia (46374623) Dysphagia (R13.10) Active confirmed Problem 650525082 Diverticulitis (K57.92) Active confirmed Problem 69241228 Irritable bowel syndrome without diarrhea (K58.9) Active confirmed Problem 80956598 Lumbar disc dise ase (M51.9) Active confirmed Problem 74648576 Essential hypert ension (I10) Active confirmed Problem 97851101 Type 2 diabetes mellitus without complication (E11.9) Active confirmed Problem 94623391 Memory loss (R41.3) Active confirmed Problem 672835257 History of colon cancer (Z85.038) Active confirmed Problem Dysthymia (94805039) Dysthymia (F34.1) Active confirmed Problem 37129261 Heart burn (R12) Active confirmed Problem 683284069 Pure hypercholesterolemia (E78.00) Active confirmed Problem 002177008 Back pain, unspe cified back location, unspecified back pain laterality, unspecified chronicity (M54.9) Active confirmed Problem 711347701 BMI 32.0-32.9,ad ult (Z68.32) Active confirmed Problem Psychoactive substance dependence (8507095) Drug dependence (F19.20) Active confirmed Problem 966213352 SBO (small bowel obstruction) (K56.609) Active confirmed Problem 549711573 Dry eyes, bilate ral (H04.123) Active confirmed Vital Signs Blood pressure diastolic 80 mm Hg 03/26/2025 Height 68 in 03/26/2025 Blood pressure systolic 116 mm Hg 03/26/2025 Weight 216 lbs 03/26/2025 BMI 32.84 kg/m2 03/26/2025 Encounters Encounter Location Date Provider Diagnosis Mahad Haddad MD [address] [place] [address] Drive [address] [place] [id number] 09/21/2024 Mahad Haddad Type 2 diabetes margi itus without complication E11.9 and Pure hypercholesterolemia E78.00 Mahad Haddad MD [address] [place] [address] Drive [address] [place] [id number] 02/26/2025 Mahad Haddad Blood tests for rout ine general physical examination Z00.00 ; Essential hypertension I10 ; Type 2 diabetes mellitus without complication E11.9 ; Prostatism N40.0 and Pure hypercholesterolemia E78.00 Mahad Haddad MD [address] [place] [address] Drive [address] [place] [id number] 09/28/2024 Mahad Haddad Type 2 diabetes margi itus without complication E11.9 and Encounter for general adult medical examination without abnormal findings Z00.00 Mahad Haddad MD [address] [place] [id number] 03/05/2025 Mahad Haddad Annual physical exam Z00.00 ; Skin lesion L98.9 ; Back pain, unspecified back location, unspecified back pain laterality, unspecified chronicity M54.9 ; Essential hypertension I10 ; Type 2 diabetes mellitus without complication E11.9 ; Dysphagia R13.10 ; Pure hypercholesterolemia E78.00 ; Prostatism N40.0 ; Colon cancer screening Z12.11 and Depression screening Z13.31 Mahad Haddad MD [address] [place] [id number] 03/26/2025 Mahad Haddad Dysphagia R13.10 Mahad Haddad MD [address] [id number] 06/04/2024 Mahad Haddad MD [address] [place] [id number] 09/28/2024 Mahad Haddad MD [address] [id number] 11/02/2024 Mahad Haddad MD [address] [id number] 12/18/2024 Mahad Haddad Type 2 diabetes margi itus without complication E11.9 Mahad Haddad MD [address] [place] [id number] 12/27/2024 Mahad Haddad Assessments Encounter Date Diagnosis [...] (ICD-10 - R13.10) will be booked at [facility] , will continue current regiment 03/05/2025 Pure [...] 03/05/2025 Complete Blood Count Auto Diff Comprehensive Morral. Panel Fast Liver Panel 09/21/2024 Glucose Fasting [...] Provider Name:Mahad Jang shaileshr, 08/30/2025 07:30:00 AM, [address] [place] [address], Suite [facility], [place], [place], [id number], Provider Name:Mahad Camara Laine ier, 09/05/2025 09:00:00 AM, [address] [place] [address], Suite [facility], [place], [place], [id number], Provider Name:Mahad Camara Laine ier, 10/03/2025 11:00:00 AM, [address] [place] [address], Suite [facility], [place], [place], [phone], Provider Name:Mahad Camara Laine ier, 02/27/2026 07:45:00 AM, [address] [place] [address], Suite [facility], [place], [place], [phone], Provider Name:Mahad Hoa Laine ier, 03/06/2026 09:30:00 AM, [address] [place] [address], [address] [place] [address], [phone], Insurance Providers Payer Name Payer Address Payer Phone Subscriber Number Group Number Insured Name Patient Relationship to Insured Coverage Start Date Coverage End Date [facility] [employer] [address] [address] [place] [address] [id number] RACHAEL CARTER Self - patient is the insured MEDICARE [employer] [address] [place] [address] [id number] RACHAEL CARTER Self - patient is the [...]
--- OUTSIDE RECORDS SUMMARY | 2025-05-28 13:12 | XMS_ITS | Patient Health Record ---
Author Organization [facility] Address [address] [place] [address] Care Team Providers Care Exploration Engineer Name Role Phone Mahad Haddad MD Primary Care Provider Juancarlos Cohen [phone] Allergies No Known Allergies Results Component Value Reference Range Notes Glucose, Whole Blood Reviewed date:09/14/2024 02:25:32 PM Interpretation: Performing Lab:[facility], [address] [place] [phone] Notes/Report: Glucose, Whole Blood 138 60-115 mg/dL METER # : [id number] Pathology (Not yet reviewed by provider) Interpretation: Performing Lab:[facility], [address] [place] [phone] Notes/Report: Reason For Referral No Information Medications [...] 20 MG TAKE 1 CAPSULE BY MO [facility] TWICE A DAY FOR HEARBURN 90; Duration: [...] Problem Screening for malignant neoplasm of colon (424479924) Encounter for screening for malignant neoplasm of colon (Z12.11) Active confirmed Problem History of adenomatous polyp of colon (726665043) History of adenomatous polyp of colon (Z86.010) Active confirmed Problem Abdominal bloating (917992440) Abdominal bloating (R14.0) Active confirmed Problem Diverticular disease of colon (594158441) Diverticulosis of large intestine without perforation or abscess without bleeding (K57.30) Active confirmed Problem History of malignant neoplasm of colon (912088945) Personal history of other malignant neoplasm of large intestine (Z85.038) Active confirmed Problem History of gastrointestinal tract bypass (744819159) Intestinal bypass and anastomosis status (Z98.0) Active confirmed Problem Gastroesophageal reflux disease with esophagitis (907359439) Gastroesophageal reflux disease with esophagitis (K21.0) Active confirmed Problem History of malignant neoplasm of colon (259090002) History of colon cancer (Z85.038) Active confirmed Problem Diverticulosis of colon (911330285) Diverticulosis of colon (K57.30) Active confirmed Problem Gastroesophageal reflux disease with esophagitis (disorder) (763045850) Gastroesophageal reflux disease with esophagitis without hemorrhage (K21.00) Active confirmed Encounters Encounter Location Date Provider Diagnosis [facility] [address] [place] [id number] 09/14/2024 Juancarlos Sher Colon cancer harmonye geeta [...] Insured Coverage Start Date Coverage End Date [facility] [address] [address] [place] [address] [id number] RACHAEL AGUSTIN Self - patient is the [...] in 2006 Internal hemorrhoids IDDM HTN Denies OR,CVA,Lung disease,renal disease EGD in 04/2011 with erosive esophagitis a nd HH-no Linn's esophagus Hyperlipidemia Colonoscopy in 05/2018 with removal of a tubular adenoma SBO in 02/2020 treated with NG tube--no s urgery Kidney stones Colonoscopy May 2021 [facility] ited prep and one small polyp removed but not recovered for pathology Surgical History Surgery Date(Month/Year) Right colectomy for colon cancer as per [facility] Right inguinal hernia 2022-Dr. Schulz Stimulator put in back
== END 2025-05-28 11:16 | disposition home or self-care (01) ==
LOC: HO.HGS 10:49
PROVIDERS: PCP Internal Medicine; Visit Provider Surgery
DX: K56.600 Partial intestinal obstruction, unspecified as to cause (principal)
CPT/HCPCS: 99214

== ENCOUNTER → 2025-05-28 10:47 | Outpatient (BNVA) | payer MEDICARE, SELFPAY | PROVIDERS: PCP Internal Medicine; Visit Provider Surgery | DX: K56.600 Partial intestinal obstruction, unspecified as to cause (principal) | CPT/HCPCS: 99212 ==

== ENCOUNTER 2025-06-06 | Outpatient (REF) | payer OTHER, SELFPAY ==
--- OUTSIDE RECORDS SUMMARY | 2024-09-14 03:30 | XMS_ITS ---
Author Organization [facility] Address [address] [place] [address] Care Team Providers Care Stamp Machine Servicer Name Role Phone Boo SIMS, Mahad Primary Care Provider Juancarlos Cohen [phone] REASON FOR VISIT 2 day prep, colon screening Problems Problem Type SNOMED Code ICD Code Onset Dates Problem Status W/U Status Risk Notes Problem History of gastrointestinal tract bypass (872062292) Intestinal bypass and anastomosis status (Z98.0) Active confirmed Problem Diverticular disease of colon (229860938) Diverticulosis of large intestine without perforation or abscess without bleeding (K57.30) Active confirmed Encounters Encounter Location Date Provider Diagnosis [facility] [place] Outpatient [address], [place] [phone] 09/14/2024 Juancarlos Sher Colon cancer scree geeta Z12.11 ; Colon polyps K63.5 ; Personal history of other malignant neoplasm of large intestine Z85.038 ; Intestinal bypass and anastomosis status Z98.0 ; Diverticulosis of large intestine without perforation or abscess without bleeding K57.30 and Other hemorrhoids K64.8 Assessments Encounter Date Diagnosis (ICD Code) Assessment Notes Treatment Notes Treatment Clinical Notes Section Notes 09/14/2024 Colon cancer screening (ICD-10 - Z12.11) 09/14/2024 Colon polyps (ICD-10 - K63.5) 09/14/2024 Personal history of other malignant neoplasm of large intestine (ICD-10 - Z85.038) 09/14/2024 Intestinal bypass and anastomosis status (ICD-10 - Z98.0) 09/14/2024 Diverticulosis of large intestine without perforation or abscess without bleeding (ICD-10 - K57.30) 09/14/2024 Other hemorrhoids (ICD-10 - K64.8) Plan Of Treatment No Information Progress Notes * RACHAEL AGUSTINDOB: (75 yo M)Acc No.[id number]:09/14/2024 COLON WITH MAC Patient: RACHAEL HEWITT Provider: William Sher MD :1950 A ge:74 Y S ex:Male Date:09/14/2024 Address: [address], [place], [facility] Pcp:Mahad Haddad MD Subjective: * Chief Complaints: * 2 day prep, colon screening Assessment: * Assessment: 1. C olon cancer screening - Z12.11 (Primary) 2 . C olon polyps - K63.5? 3. P ersonal history of other malignant neoplasm of large intestine - Z85.038 4 . I ntestinal bypass and anastomosis status - Z98.0 5 . D iverticulosis of large intestine without perforation or abscess without bleeding - K57.30 ?6. O ther hemorrhoids - K64.8 Plan: * Procedure Codes: 4 5385 LESION REMOVAL COLONOSCOPY, Modifiers: PT 0529F INTRVL 3+YRS PTS CLNSCP [id number] RCMND FLW-UP 10 YRS DOCD, Modifiers: 1P Billing Information: * Procedure Codes: 80871 LESION REMOVAL COLONOSCOPY. Modifiers: PT 0529F INTRVL 3+YRS PTS CLNSCP DOCD. 0528F RCMND FLW-UP 10 YRS DOCD. Modifiers: 1P * The named appointment provid er may or may not be the originator of this progress note, and it is not deemed complete until electronically signed by the appointment provider. Sign off status: Pending * Provider: William Sher MD Date: 0 09/14/2024 Generated for Xena purdy/Adina/Wesleyitting on: 0 08/28/2025 01:36 PM EST
--- OUTSIDE RECORDS SUMMARY | 2024-09-21 02:30 | XMS_ITS ---
Author Organization Mahad Haddad MD Address [address] [place] [phone] Care Team Providers Care Payroll Accounting Manager Name Role Phone Mahad Haddad Primary Care Provider [phone] REASON FOR VISIT fasting lipids Encounters Encounter Location Date Provider Diagnosis Mahad Haddad MD [address] [place] [phone] 09/21/2024 Mahad Haddad Type 2 diabetes margi itus without complication E11.9 and Pure hypercholesterolemia E78.00 Assessments Encounter Date Diagnosis (ICD Code) Assessment Notes Treatment Notes Treatment Clinical Notes Section Notes 09/21/2024 Type 2 diabetes magri itus without complication (ICD-10 - E11.9) 09/21/2024 Pure hypercholesterolemia (ICD-10 - E78.00) Plan Of Treatment Pending Test Test Name Order Date Liver Panel 09/21/2024 Glucose Fasting 09/21/2024 Lipid Panel with Reflex 09/21/2024 Hemoglobin A1c 09/21/2024 Next Appt Details Provider Name:Mahad cashr, 08/30/2025 07:30:00 AM, [address] [place] [address], Suite [facility], [place], [place], [phone], Provider Name:Mahad Jang ier, 09/05/2025 09:00:00 AM, [address] [place] [address], Suite [facility], [place], [place], [phone], Provider Name:Mahad cashr, 10/03/2025 11:00:00 AM, [address] [place] [address], [address], [phone], Provider Name:Mahad cashr, 02/27/2026 07:45:00 AM, [address] [place] [address], Suite [facility], [place], [place], [phone], Provider Name:Mahad cashr, 03/06/2026 09:30:00 AM, [address] [place] [address], [address] [place] [address], [phone], Progress Notes * ELIZABETH CARTERDIANEDOB:[birth year] (75 yo M)Acc No.[id number]:09/21/2024 Progress Note Patient: RACHAEL KONG Provider: Damion Haddad MD :1950 A ge:74 Y S ex:Male Date:09/21/2024 Address: [address] [id number] Subjective: * Chief Complaints: * 1 . Fasting lipids. * Medical History: Objective: * Vitals: Assessment: * Assessment: 1. T ype 2 diabetes mellitus without complication - E11.9 (Primary) 2 . P ure hypercholesterolemia - E78.00 Plan: * Treatment: 2. P ure hypercholesterolemia L AB: Liver Panel L AB: Glucose Fasting L AB: Lipid Panel with Reflex L AB: Hemoglobin A1c * Procedure Codes: 3 6415 VENIPUNCT, ROUTINE* * * The named appointment provid er may or may not be the originator of this progress note, and it is not deemed complete until electronically signed by the appointment provider. Sign off status: Pending * Provider: Damion Haddad MD Date: 0 09/21/2024 Generated for Xena purdy/Adina/Wesleyitting on: 0 08/28/2025 01:35 PM EST
--- OUTSIDE RECORDS SUMMARY | 2024-09-28 05:15 | XMS_ITS ---
Author Organization Mahad Haddad MD Address [address] [place] [address] [phone] Care Team Providers Care Anthropology Faculty Member Name Role Phone Mahad Haddad Primary Care [...] day for 30 days 08/29/2023 Active Pen [place] 33G X 4 MM as directed sq [...] Location Date Provider Diagnosis Mahad Haddad MD [address] [place] [address] [phone] 09/28/2024 Mahad Haddad Type 2 diabetes mellitus [...] Name:Mahad de la paz, 08/30/2025 07:30:00 AM, [address] [place] [address], [address], [phone], Provider Name:Mahad de la paz, 09/05/2025 09:00:00 AM, [address] [place] [address], [address], [phone], Provider Name:Mahad de la paz, 10/03/2025 11:00:00 AM, [address] [place] [address], [address], [phone], Provider Name:Mahad de la paz, 02/27/2026 07:45:00 AM, [address] [place] [address], [phone], Provider Name:Maahd Jang ier, 03/06/2026 09:30:00 AM, [address], [address], [place], [place], [phone], Progress Notes * RACHAEL CARTERDOB:[birth year] (74 yo M)Acc No.[id number]:09/28/2024 Progress Note Patient: RACHAEL KONG Provider: Damion Haddad MD :1950 A ge:74 Y S ex:Male Date:09/28/2024 Address: [address], [place], [id number] Subjective: * Chief Complaints: * 6 months DM, AWVAccompanied by son * HPI: A nnual Wellness Visit: 74 year old male presents with c/o of A nnual Wellness Visit , Annual Wellness Visit. Medical / Social History Reviewed T he following items were reviewed and updated during today's visit P ast Medical History, [place] of Care, Surgical/Hospitalization History, Current medications including [...] 1 tablet Orally Once a day Pen [place] 33G X 4 MM Miscellaneous as directed [...] tablet Orally Once a day Taking Pen [place] 33G X 4 MM Miscellaneous as directed [...] C ounseling for abnormal BMI provided?Yes, A fredo Normal BMI Follow-up D ietary management education, [...] MD Date: 0 09/28/2024 Generated for Xena purdy/Adina/Aide on: 0 08/28/2025 01:34 PM EST History and Physical Notes * HPI [...] updated during today's visit: Past Medical History, [place] of Care, Surgical/Hospitalization History, Current medications including [...]
--- OUTSIDE RECORDS SUMMARY | 2024-09-28 08:53 | XMS_ITS ---
Author Organization Mahad Haddad MD Address [address] [place] [address] [phone] Support Name Relationship Address Phone Boo Mahad Caregiver 10 [facility] [address] ve [address] [place] [address] [phone] Maldonado Mota Caregiver 10 [facility] [address] [place] [address] [phone] Nora Anderscris Caregiver 10 [facility] [address] [place] [address] [phone] MARSHA COOLEY Caregiver 10 [facility] [address] [place] [address] [phone] Candido Rodriguez Caregiver 10 [facility] [address] [place] [address] [phone] KIKI POLANCO Caregiver [address] [facility] [address] [place] [address] [phone] Erik Vaz Caregiver [address] [facility] [address] [place] [address] [phone] Jennifer Ji Caregiver [facility] [address] [place] [address] [phone] KRISTINA CARTER Emergency Contact [address] [place] [address] RACHAEL CARTER Guarantor Unknown [phone] Care Team Providers Care Principal Examiner Name Role Phone Mahad Haddad Primary Care Provider REASON FOR VISIT last note Encounters Encounter Location Date Provider Diagnosis Mahad Haddad MD [address] [place] [address] [phone] 09/28/2024 Mahad Haddad Plan Of Treatment Next Appt Details Provider Name:Mahad de la paz, 08/30/2025 07:30:00 AM, [address], [address], [place], [place], [phone], Provider Name:Mahad Jang shaileshr, 09/05/2025 09:00:00 AM, [address] [facility] [address], [place], [place], [phone], Provider Name:Mahad Jang ier, 10/03/2025 11:00:00 AM, [address] [facility] [address], [place], [phone], Provider Name:Mahad Leivarose cashr, 02/27/2026 07:45:00 AM, [address] [place] [address], [address], [place], [phone], Provider Name:Mahad Jang shaileshr, 03/06/2026 09:30:00 AM, [address] [place] [address], [address], [place], [phone], Progress Notes * RACHAEL CARTERDOB:[birth year] (74 yo M)Acc No.[id number]:09/28/2024 Patient: Gwen BLISS ARCHAEL :1950 A ge:74 Y S ex:Male Address:[place] [address], [address] * true * Date: Generated for Xena purdy/Adina/eTwilmersmitting on: 0 08/28/2025 01:34 PM EST
--- OUTSIDE RECORDS SUMMARY | 2024-11-02 14:43 | XMS_ITS ---
Author Organization Mahad Haddad MD Address [address] [place] [phone] Care Team Providers Care Hand Stapler Name Role Phone Mahad Haddad Primary Care Provider [phone] REASON FOR VISIT ER Encounters Encounter Location Date Provider Diagnosis Mahad Haddad MD [address] [facility] [address] [place], [place] [phone] 11/02/2024 Mahad Haddad Plan Of Treatment Next Appt Details Provider Name:Mahad de la paz, 08/30/2025 07:30:00 AM, [address], [address], [place], [place], [phone], Provider Name:Mahad Jang shaileshr, 09/05/2025 09:00:00 AM, [address] [facility], [address], [place], [place], [phone], Provider Name:Mahad Jang ier, 10/03/2025 11:00:00 AM, [address] [facility], [address], [place], [phone], Provider Name:Mahad Jang shaileshr, 02/27/2026 07:45:00 AM, [address] [place] [address], [address], [place], [phone], Provider Name:Mahad Jang shaileshr, 03/06/2026 09:30:00 AM, [address] [place] [address], [address], [place], [phone], Progress Notes * RACHAEL CARTERDOB:[birth year] (74 yo M)Acc No.[id number]:11/02/2024 Patient: Gwen BLISS RACHAEL :1950 A ge:74 Y S ex:Male Address: [place], [address] * true * Date: Generated for Xena purdy/Adina/eTwilmersmitting on: 0 08/28/2025 01:34 PM EST
--- OUTSIDE RECORDS SUMMARY | 2024-11-10 03:55 | XMS_ITS ---
Author Organization [facility] Address [address] [place] [phone] Care Team Providers Care Boxcar Weigher Name Role Phone Boo SIMS, Mahad Primary Care Provider Juancarlos Cohen [phone] REASON FOR VISIT hx colon ca,screening,hx polyps Encounters Encounter Location Date Provider Diagnosis [facility] [address] [place] [phone] 11/10/2024 Juancarlos Sher Plan Of Treatment No Information Progress Notes * RACHAEL AGUSTINDOB: (75 yo M)Acc No.[id number]:11/10/2024 COLON WITH MAC Patient: Gwen PENARACHAEL HUANG Provider: William Sher MD :1950 A ge:74 Y S ex:Male Date:11/10/2024 Address:[address], [id number] Pcp:Mahad Haddad MD Subjective: * Chief Complaints: * H x colon ca,screening,hx polyps * The named appointment provid er may or may not be the originator of this progress note, and it is not deemed complete until electronically signed by the appointment provider. Sign off status: Pending * Provider: William Sher MD Date: 0 11/10/2024 Generated for Printi ng/Faaprilg/eTransmitting on: 0 08/28/2025 01:35 PM EST
--- OUTSIDE RECORDS SUMMARY | 2024-12-18 04:31 | XMS_ITS ---
Author Organization Mahad Haddad MD Address [address] [place] [phone] Support Name Relationship Address Phone Mahad Haddad Caregiver [facility] [address] [place] [address] [phone] Maldonado Mota Caregiver [facility] [address] [place] [address] [phone] NoraAnderscris Caregiver [facility] [address] [place] [address] [phone] MARSHA COOLEY Caregiver [facility] [address] [place] [address] [phone] Candido Rodriguez Caregiver [facility] [address] [place] [address] [phone] KIKI POLANCO Caregiver [address] [facility] [address] [place] [address] [phone] Erik Vaz Caregiver [address] [facility] sherman [address] [place] [address] [phone] Jennifer Ji Caregiver 10 [facility] ve [address] [place] [address] [phone] KRISTINA CARTER Emergency Contact [address] [place] [address] RACHAEL CARTER Guarantor Unknown Care Team Providers Care Wreath Maker Name Role Phone Mahad Haddad Primary Care Provider [phone] REASON FOR VISIT refill Medications Medication SIG [...] Location Date Provider Diagnosis Mahad Haddad MD [address] [place] [address] [phone] 12/18/2024 Mahad Haddad Type 2 diabetes mellitus [...] HCl 500 MG TAKE 1 TABLET BY ND UT TWICE A DAY WITH MEALS Orally Once a day for 90 days Next Appt Details Provider Name:Mahad de la paz, 08/30/2025 07:30:00 AM, [address] [place] [address], [address], [phone], Provider Name:Mahad de la paz, 09/05/2025 09:00:00 AM, [address] [place] [address], [phone], Provider Name:Mahad de la paz, 10/03/2025 11:00:00 AM, [address] [place] [address], [address], [phone], Provider Name:Mahad de la paz, 02/27/2026 07:45:00 AM, [address] [place] [address], [phone], Provider Name:Mahad de la paz, 03/06/2026 09:30:00 AM, [address] [place] [address], [phone], Progress Notes * RACHAEL CARTERDOB:[birth year] (74 yo M)Acc No.[id number]:12/18/2024 Patient: RACHAEL KONG :1950 A ge:74 Y S ex:Male Address: [place], [address] * Refills Refill Atorvastatin Calcium Tablet, 40 MG, Orally, 90, TAKE 1 TABLET BY MOUTH EVERY DAY, Once a day, 90 days, Refills=3 Refill metFORMIN HCl Tablet, 500 MG, Orally, 180, TAKE 1 TABLET BY MOUTH TWICE A DAY WITH MEALS, Once a day, 90 days, Refills=3 * true * Date: Generated for Xena purdy/Adina/Aide on: 0 08/28/2025 01:36 PM EST
--- OUTSIDE RECORDS SUMMARY | 2024-12-27 06:44 | XMS_ITS ---
Author Organization Mahad Haddad MD Address [address] [place] [address] [phone] Care Team Providers Care Inspector Shells Name Role Phone Mahad Haddad Primary Care Provider REASON FOR VISIT Carotid US due . Encounters Encounter Location Date Provider Diagnosis Mahad Haddad MD [address] [place], [place] [phone] 12/27/2024 Mahad Haddad Plan Of Treatment Next Appt Details Provider Name:Mahad Jang ier, 08/30/2025 07:30:00 AM, [address], [place], [phone], Provider Name:Mahad Jang shaileshr, 09/05/2025 09:00:00 AM, [address], [place], [place], [phone], Provider Name:Mahad Jang ier, 10/03/2025 11:00:00 AM, [address], [place], [phone], Provider Name:Mahad Jang ier, 02/27/2026 07:45:00 AM, [address] [facility], [address], [place], [phone], Provider Name:Mahad Jang shaileshr, 03/06/2026 09:30:00 AM, [address] [place] [address], [address], [place], [phone], Progress Notes * RACHAEL CARTERDOB:[birth year] (74 yo M)Acc No.[id number]:12/27/2024 Patient: Gwen JOCELYNNLAURAVISHAL RACHAEL :1950 A ge:74 Y S ex:Male Address: [place] [address], [address] * true * Date: Generated for Xena purdy/Adina/Marysmitting on: 0 08/28/2025 01:37 PM EST
--- OUTSIDE RECORDS SUMMARY | 2025-02-26 02:45 | XMS_ITS ---
Author Organization Mahad Haddad MD Address [address] [place] [phone] Care Team Providers Care Sql Bi Developer Name Role Phone Mahad Haddad Primary Care Provider [phone] REASON FOR VISIT yearly fasting labs Encounters Encounter Location Date Provider Diagnosis Mahad Haddad MD [address] [place] [phone] 02/26/2025 Mahad Haddad Blood tests for rout [...] Date Complete Blood Count Auto Diff Comprehensive [place]. Panel Fast Lipid Panel 02/26/2025 PSA,Total (Free>4and<10) 02/26/2025 Microalbumin, Random 02/26/2025 Hemoglobin A1c 02/26/2025 UA ClnCatch+Micro w/rflx Cult 02/26/2025 Next Appt Details Provider Name:Mahad de la paz, 08/30/2025 07:30:00 AM, [address] [place] [address], [address] [place] [address], [phone], Provider Name:Mahad de la paz, 09/05/2025 09:00:00 AM, [address] [place] [address], [address], [phone], Provider Name:Mahad de la paz, 10/03/2025 11:00:00 AM, [address] [place] [address], [address], [phone], Provider Name:Mahad de la paz, 02/27/2026 07:45:00 AM, [address] [place] [address], [address], [phone], Provider Name:aMhad de la paz, 03/06/2026 09:30:00 AM, [address] [place] [address], [address], [phone], Progress Notes * CHARLY CARTER:[birth year] (75 yo M)Acc No.[id number]:02/26/2025 Progress Note Patient: RACHAEL KONG Provider: Damion Haddad MD :1950 A ge:74 Y S ex:Male Date:02/26/2025 Address: [address], [id number] Subjective: * Chief Complaints: * 1 . [...] Blood Count Auto Diff L AB: Comprehensive [place]. Panel Fast L AB: Lipid Panel L AB: PSA,Total (Free>4and<10) L AB: Microalbumin, Random L AB: Hemoglobin A1c L AB: UA ClnCatch+Micro w/rflx Cult 3. T ype 2 diabetes mellitus without complication L AB: Complete Blood Count Auto Diff L AB: Comprehensive [place]. Panel Fast L AB: Lipid Panel L AB: PSA,Total (Free>4and<10) L AB: Microalbumin, Random L AB: Hemoglobin A1c L AB: UA ClnCatch+Micro w/rflx Cult 4. P rostatism L AB: Complete Blood Count Auto Diff L AB: Comprehensive [place]. Panel Fast L AB: Lipid Panel L AB: PSA,Total (Free>4and<10) L AB: Microalbumin, Random L AB: Hemoglobin A1c L AB: UA ClnCatch+Micro w/rflx Cult 5. P ure hypercholesterolemia L AB: Complete Blood Count Auto Diff L AB: Comprehensive [place]. Panel Fast L AB: Lipid Panel L [...] 0 02/26/2025 Generated for Xena purdy/Adina/Aide on: 0 08/28/2025 01:34 PM EST
--- OUTSIDE RECORDS SUMMARY | 2025-03-05 04:30 | XMS_ITS ---
Author Organization Mahad Haddad MD Address [address] [place] [phone] Care Team Providers Care [employer] Name Role Phone Mahad Haddad Primary Care Provider [phone] Allergies No Known Allergies REASON FOR VISIT [...] dissolve Sublingual Once a day Active Pen [place] 33G X 4 MM as directed sq [...] Status W/U Status Risk Notes Problem Dysphagia ([id number]) Dysphagia (R13.10) Active confirmed Vital Signs Blood pressure systolic 152 mm Hg 03/05/20 25 Blood pressure diastolic 68 mm Hg 025 Height 68 in 03/05/2025 Weight 216 lbs 03/05/2025 BMI 32.84 kg/m2 03/05/2025 Encounters Encounter Location Date Provider Diagnosis Mahad Haddad MD [address] [place] [address] Drive [address] [place] [phone] 03/05/2025 Mahad Haddad Annual physical exam Z00.00 [...] (ICD-10 - R13.10) will be booked at [facility] , will continue current regiment 03/05/2025 Pure [...] Name:Mahad de la paz, 08/30/2025 07:30:00 AM, [address] [place] [address], [address], [place], [place], [phone], Provider Name:Mahad de la paz, 09/05/2025 09:00:00 AM, [address] [place] [address], [address], [place], [place], [phone], Provider Name:Mahad de la paz, 10/03/2025 11:00:00 AM, [address] [facility], [address], [place], [place], [phone], Provider Name:Mahad Jang ana cristina, 02/27/2026 07:45:00 AM, [address] [facility], [address], [place], [phone], Provider Name:Mahad Jang ana cristina, 03/06/2026 09:30:00 AM, [address] [facility], [address], [place], [phone], Progress Notes * RACHAEL CARTERDOB:[birth year] (74 yo M)Acc No.[id number]:03/05/2025 Progress Notes Patient: RACHAEL KONG Provider: Damion Haddad MD :1950 A ge:74 Y S ex:Male Date:03/05/2025 Address: [facility], [id number] Subjective: * Chief Complaints: * A nnual [...] 1 tablet Orally Once a day Pen [place] 33G X 4 MM Miscellaneous as directed [...] tablet Orally Once a day Taking Pen [place] 33G X 4 MM Miscellaneous as directed [...] mg/dL Urine Blood Negative Negative - Specific [place] - Urine 1.015 1.005-1.025 - Urine Protein [...] Urine 0-2 0-2 - /LPF L ab:Comprehensive [place]. Panel Fast (Order Date - 02/26/2025) (Collection [...] GI SERIES Notes: will be booked at [facility] , will continue current regiment 7. P [...] MD Date: 0 03/05/2025 Generated for Xena purdy/Adina/Aide on: 08/28/2025 01:35 PM EST History and Physical Notes * [...]
--- OUTSIDE RECORDS SUMMARY | 2025-03-26 06:30 | XMS_ITS ---
Author Organization Mahad Haddad MD Address [address] [place] [address] [phone] Care Team Providers Care Senior Gamemaster Name Role Phone Mahad Haddad Primary Care Provider Allergies No Known Allergies Reason For Referral Reason Dysphagia Diagnosis 1 Dysphagia (R13.10) Referral Organization Mahad Haddad MD Referring Provider First Name Mahad Referring Provider Last Name Boo Referring Provider Speciality Internal M edicine Referred Provider [facility], [facility] Referred Provider Specialty Otolaryngolo gy General Notes Megan Ortiz 1 03:10:31 PM > spoke with office was told ins referral needs to go under Shirin Quezada [phone] Referral Priority Routine Referral Appointment Date 06/28/2025 REASON FOR VISIT DISCUSS LAB WORK and Upper GI in patient docs, Accompanied by son Medications Medication SIG (Take, Route, Frequency, Duration) Notes Start Date End Date Status Meclizine HCl 25 MG 1 tablet as needed Orally every 12 hrs for 30 days Active hydrALAZINE HCl 100 MG 1 tablet Orally t hree times daily Active Pen [place] 33G X 4 MM as directed sq tw ice a day for 30 days 10/27/2023 Active Dicyclomine HCl 10 MG 2 capsules Orally Three times a day for 30 day(s) Active Suboxone 2-0.5 MG 1 film under the tongue and allow to dissolve Sublingual Once a day Active Hyoscyamine Sulfate 0.125 MG 1 tablet as needed Orally twice a day for 90 days 10/16/2018 Not-Taking Zofran 4 MG 1 tablet Orally TID prn Not-Taking Acarbose 50 MG as directed Orally Not-Taking Fioricet 50-300-40 MG 1-2 capsule as nee ded Orally every 6 hours prn Not-Taking Cefdinir 300 MG 1 capsule Orally every 12 hrs for 7 days Not-Taking Ibuprofen 800 MG 1 tablet with food o r milk as needed Orally Three times a day Not-Taking Aspir-81 81 MG 1 tablet Orally Once a day for 30 day(s) Not-Taking Cyclobenzaprine HCl 10 MG 1 tablet at be dtime as needed Orally Once a day for 30 day(s) Not-Taking metFORMIN HCl 500 MG TAKE 1 TABLET BY MOUTH TWICE A DAY WITH MEALS Active Lantus SoloStar 100 UNIT/ML INJECT 20 UN ITS SUBCUTANEOUSLY EVERY DAY DIRECTED 75 Subcutaneous once a day Active Tamsulosin HCl 0.4 MG 1 capsule 30 minut es after the same meal each day Orally Once a day Active Carvedilol 6.25 MG 1 tablet with food Orally Twice a day Active Atorvastatin Calcium 40 MG TAKE 1 TABLET BY MOUTH EVERY DAY Orally Once a day Active Losartan Potassium 100 MG 1 tablet Orall y Once a day 10/10/2020 Active hydroCHLOROthiazide 25 MG TAKE 1 TABLET BY MOUTH EVERY DAY IN THE MORNING FOR 30 DAYS Active Pioglitazone HCl 15 MG 1 tablet Orally O nce a day Active Finasteride 5 MG 1 tablet Orally Once a day Active OneTouch Verio - TESTBLOOD SUGAR 3 TIMES A DAY for 90 Active Omeprazole 20 MG 1 capsule 30 minutes before morning meal Orally Once a day Active Wellbutrin XL 150 MG 1 tablet in the morning Orally Once a day 10/10/2020 Active Vital Signs Blood pressure systolic 116 mm Hg 03/26/20 25 Blood pressure diastolic 80 mm Hg 025 Height 68 in 03/26/2025 Weight 216 lbs 03/26/2025 BMI 32.84 kg/m2 03/26/2025 Encounters Encounter Location Date Provider Diagnosis Mahad Haddad MD [address] [place] [address] [phone] 03/26/2025 Mahad Haddad Dysphagia R13.10 Assessments Encounter Date Diagnosis (ICD Code) Assessment Notes Treatment Notes Treatment Clinical Notes Section Notes 03/26/2025 Dysphagia (ICD-10 - R13.10) sounds like in the back of throat. need ent evaluation Plan Of Treatment Treatment Notes Assessment Notes Dysphagia sounds like in the b ack of throat. need ent evaluation Referrals Referral Date Details 03/26/2025 03/26/2025, Dysphagi a, [facility] Referrals [facility] Referrals Next Appt Details Provider Name:Mahad de la paz, 08/30/2025 07:30:00 AM, [address] [place] [address], [address], [phone], Provider Name:Mahad de la paz, 09/05/2025 09:00:00 AM, [address] [place] [address], [phone], Provider Name:Mahad de la paz, 10/03/2025 11:00:00 AM, [address] [place] [address], [phone], Provider Name:Mahad de la paz, 02/27/2026 07:45:00 AM, [address] [place] [address], [phone], Provider Name:Mahad de la paz, 03/06/2026 09:30:00 AM, [address] [place] [address], [phone], Progress Notes * RACHAEL CARTERDOB:[birth year] (74 yo M)Acc No.[id number]:03/26/2025 Progress Notes Patient: RACHAEL KONG Provider: Damion Haddad MD :1950 A ge:74 Y S ex:Male Date:03/26/2025 Address: [address], [id number] Subjective: * Chief Complaints: * D ISCUSS LAB WORK and Upper GI in patient docsAccompanied by son * HPI: S ymptom(s): patient is a 74 yo male here to discuss recent lab work/ has been feeling tired. had xrays on throat at [facility]. * ROS: G eneral/Constitutional: Denies C hills. D enies F atigue. D enies F ever. D enies H eadache. E NT: Denies S ore throat. R espiratory: Denies C ough. D enies S hortness of breath at rest. D enies S hortness of breath with exertion. G astrointestinal: Denies D iarrhea. D enies N ausea. * Medical History: * Surgical History: * Hospitalization/Major Diagno stic Procedure: * Medications: T akingMeclizine HCl 25 MG Tablet Chewable 1 tablet as needed Orally every 12 hrs Dicyclomine HCl 10 MG Capsule 2 capsules Orally Three times a day Suboxone 2-0.5 MG Film 1 film under the tongue and allow to dissolve Sublingual Once a day hydrALAZINE HCl 100 MG Tablet 1 tablet Orally three times daily Pen [place] 33G X 4 MM Miscellaneous as directed sq twice a day Wellbutrin XL 150 MG Tablet Extended Release 24 Hour 1 tablet in the morning Orally Once a day OneTouch Verio - Strip TESTBLOOD SUGAR 3 TIMES A DAY Omeprazole 20 MG Capsule Delayed Release 1 capsule 30 minutes before morning meal Orally Once a day Pioglitazone HCl 15 MG Tablet 1 tablet Orally Once a day Finasteride 5 MG Tablet 1 [...] BY MOUTH TWICE A DAY WITH MEALS Lantus SoloStar 100 UNIT/ML Solution Pen-injector INJECT 20 UNITS SUBCUTANEOUSLY EVERY DAY DIRECTED 75 Subcutaneous once a day Taking Meclizine HCl 25 MG Tablet Chewable 1 tablet as needed Orally every 12 hrs Taking Dicyclomine HCl 10 MG Capsule 2 capsules Orally Three times a day Taking Suboxone 2-0.5 MG Film 1 film under the tongue and allow to dissolve Sublingual Once a day Taking hydrALAZINE HCl 100 MG Tablet 1 tablet Orally three times daily Taking Pen [place] 33G X 4 MM Miscellaneous as directed sq twice a day Taking Wellbutrin XL 150 MG Tablet Extended Release 24 Hour 1 tablet in the morning Orally Once a day Taking OneLendiouch Verio - Strip TESTBLOOD SUGAR 3 TIMES A DAY Taking Omeprazole 20 MG Capsule Delayed Release 1 capsule 30 minutes before morning meal Orally Once a day Taking Pioglitazone HCl 15 MG Tablet 1 tablet Orally Once a day Taking Finasteride 5 MG Tablet 1 tablet Orally Once a day Taking Tamsulosin HCl 0.4 MG Capsule Extended Release 24 Hour 1 capsule 30 minutes after the same meal each day Orally Once a day Taking Carvedilol 6.25 [...] MOUTH TWICE A DAY WITH MEALS Taking Lantus SoloStar 100 UNIT/ML Solution Pen-injector INJECT 20 UNITS SUBCUTANEOUSLY EVERY DAY DIRECTED 75 Subcutaneous once a day Not-Taking/PRNAspir-81 81 MG Tablet Delayed Release 1 [...] MG Tablet 1 tablet Orally TID prn Not- Taking/PRN Fioricet 50-300-40 MG Capsule 1-2 capsule as needed Orally every 6 hours prn Not-Taking/PRN Cefdinir 300 MG Capsule 1 capsule Orally every 12 hrs Medication List reviewed and reconciled with the patient * Allergies: N .K.D.A.yes[Allergies Verified] Objective: * Vitals: H t: 68, Wt: 216, BMI:32.84, BP:116/80, Wt-k.98. * Examination: G eneral Examination: GENERAL APPEARANCE: a lert, well hydrated, in no distress repeatedly clearing his throat. THROAT: a m unable to see very far down but appears normal.? NECK/THYROID: n o adenopathy in neck. ? Assessment: * Assessment: 1. D ysphagia - R13.10 (Primary) Plan: * Treatment: * Procedure Codes: * * Sign off status: Completed true * Provider: Damion Haddad MD Date: 0 03/26/2025 Generated for Xena purdy/Adina/Aide on: 08/28/2025 01:37 PM EST History and Physical Notes * HPI (History of Present Illness) Category Sub-Category Detail Notes Category Not es Symptom(s) patient is a 74 yo male here to discuss recent lab work/ has been feeling tired. had xrays on throat at [facility] Examination Category Sub-Category Detail Notes Category Not es General Examination GENERAL APPEARANCE: alert, w ell hydrated, in no distress repeatedly clearing his throat THROAT: am unable to see konrad y far down but appears normal NECK/THYROID: no adenopathy in nec k Consultation Request Notes Referral Date Referring Provider Referred Provider Not es 03/26/2025 Mahad Haddad [facility] Referrals, [facility] Urgent Referrals Dysphagia
--- OUTSIDE RECORDS SUMMARY | 2025-06-03 03:30 | XMS_ITS ---
Author Organization Mahad Haddad MD Address [address] [place] [phone] Care Team Providers Care Green Building Engineer Name Role Phone Mahad Haddad Primary Care Provider [phone] REASON FOR VISIT FBS and A1C for surgeon Dr Mota Encounters Encounter Location Date Provider Diagnosis Mahad Haddad MD [address] [place] [phone] 06/03/2025 Mahad Haddad Type 2 diabetes mellitus without complication E11.9 Assessments Encounter Date Diagnosis (ICD Code) Assessment Notes Treatment Notes Treatment Clinical Notes Section Notes 06/03/2025 Type 2 diabetes mellitus without complication (ICD-10 - E11.9) Plan Of Treatment Next Appt Details Provider Name:Mahad de la paz, 08/30/2025 07:30:00 AM, [address], [address], [place], [place], [phone], Provider Name:Mahad de la paz, 09/05/2025 09:00:00 AM, [address], [address], [place], [place], [phone], Provider Name:Mahad cashr, 10/03/2025 11:00:00 AM, [address] [facility], [address] [facility], [place], [place], [phone], Provider Name:Mahad de la paz, 02/27/2026 07:45:00 AM, [address] [place] [address], [address] [facility], [place], [place], [phone], Provider Name:Mahad de la paz, 03/06/2026 09:30:00 AM, [address] [place] [address], [address] [facility], [place], [place], [phone], Progress Notes * RACHAEL CARTERDOB:[birth year] (75 yo M)Acc No.[id number]:06/03/2025 Progress Note Patient: RACHAEL KONG Provider: Damion Haddad MD :1950 A ge:74 Y S ex:Male Date:06/03/2025 Address: [address] [id number] Subjective: * Chief Complaints: * 1 . [...] Pending * Provider: Damion Haddad MD Date: 1 Generated for Xena purdy/Adina/Wesleyitting on: 0 08/28/2025 01:37 PM EST
--- NOTE | 2025-06-06 | ECG_ITS ---
Test Reason : preop Blood Pressure : */* mmHG Vent. Rate : 67 BPM Atrial Rate : 67 BPM P-R Int : 162 ms QRS Dur : 90 ms QT Int : 408 ms P-R-T Axes : 6 14 -15 degrees QTcB Int : 431 ms Normal sinus rhythm Nonspecific ST and T wave abnormality Abnormal ECG When compared with ECG of 02-Nov-2024 09:49, No significant change was found Referred By: Roxana Agosto Electronically Signed By: KIKI POLANCO
[2025-06-06 10:09] VITALS: BP 196/90; PULSE 81; RESP 16; O2SAT 98; BMI 33.3
--- NOTE | 2025-06-06 10:29 | HO.ANESPROP2 ---
HPI - Anesthesia Eval Consult details Narrative: Postponed by surgical team d/t elevated A1C and uncontrolled htn. T/C to son regarding BP's - remain elevated on BID carvedilol. Instructed to continue to monitor and call renal for f/u and med adjustment. 74yo M for Exploratory Laparotomy,Lysis of Adhesions,possible Bowel Resection, 06/13/25 s/p cysto, TURP 10/2024 with GA-LMA 5 s/p colon resection 2005 spinal stim in situ No recent illness No CP. Some SOB with abdominal distention but otherwise none Able to walk for exercise and do housework HTN: Follows [facility]. Pt reports taking carvedilol daily instead of BID. Instructed to take as rx'd and log BP's at home Son Raciel - [phone] Remote hx substance abuse. Suboxone 2-0.5mg x TID DM2: Insulin,metforming. FBS 120-200 GERD: ppi BID PMFSH Active Problems Active Problems: All Active Problems Abdominal distention (Acute) Spondylosis of lumbar region without myelopathy or radiculopathy (Acute) Posterior right knee pain (Acute) Posterior left knee pain (Acute) Partial small bowel obstruction (Acute) Gas pain (Acute) Urinary hesitancy (Acute) Right groin pain (Acute) Right inguinal hernia (Acute) Abnormal EKG (Acute) Asymmetric septal hypertrophy (Acute) Osteoarthritis of hip (Acute) Osteoarthritis of both knees (Acute) Osteoarthritis of hands, bilateral (Acute) Osteoarthritis of lumbar spine (Acute) Other and unspecified hyperlipidemia (Acute) Type 2 diabetes mellitus with unspecified complications (Acute) Essential hypertension (Acute) Precordial chest pain (Acute) Right inguinal hernia (Acute) BPH w urinary obs/LUTS (Acute) DM2 (diabetes mellitus, type 2) (Acute) Disc degeneration, lumbar (Acute) Chronic pain syndrome (Acute) Spondylosis of lumbosacral spine with radiculopathy (Acute) GERD (gastroesophageal reflux disease) (Acute) Obesity (BMI 30-39.9) (Acute) Hypertension (Acute) 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 associated with type 2 diabetes mellitus (Acute) detention (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 (Acute) Past Medical History Medical History (Updated 06/06/25 @ 10:02 by Za Alonso RN) Colon cancer Renal calculi Asymmetric septal hypertrophy Osteoarthritis On beta lala at home Hx SBO DM2 (diabetes mellitus, type 2) Disc degeneration, lumbar Chronic pain syndrome Spondylosis of lumbosacral spine with radiculopathy GERD (gastroesophageal reflux disease) Obesity (BMI 30-39.9) Hypertension 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 associated with type 2 diabetes mellitus 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 Family History Family History Father Unknown family medical history Mother Unknown family medical history Family history of problems with anesthesia: No Surgical History Surgical History (Updated 06/06/25 @ 10:04 by Za Alonso RN) History of prostate surgery Hx of inguinal hernia repair S/P placement of nerve stimulator Hx of surgical procedure Hx of cystoscopy Hx of lithotripsy Hx of right hemicolectomy Hx of colonoscopy (09/14/24) Hx of esophagogastroduodenoscopy History of Problems with Anesthesia: No Social History Social History Are you a primary adult care manager to a significant other at home: No Do you presently have visiting nurse or other home services: No Alcohol intake: never Patient Tobacco Use Status: Never used Tobacco Second Hand Smoke Exposure: No Use of substances other than those prescribed or required for medical reasons: Yes Substance Use Type Other:: former opiate [id number] taking suboxone Have you been hit, kicked, punched, or otherwise hurt by someone within the past year? 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 Allergies Allergy/AdvReac Type Severity Reaction Status Date / Time No Known Allergies Allergy Verified 05/28/25 10:58 Home Medications ?Medication ?Instructions ?Recorded ?Confirmed ?Last Taken ?Type atorvastatin 40 mg tablet 40 mg PO DAILY 08/12/20 06/05/25 07/29/23 History omeprazole 20 mg capsule,delayed 20 mg PO BID heartburn 08/12/20 06/05/25 11/05/24 History release aspirin 81 mg tablet,delayed 81 mg PO DAILY 11/21/24 06/05/25 Unknown History release buprenorphine 2 mg-naloxone 0.5 mg 3 tab sublingual DAILY 06/06/25 06/06/25 Unknown History sublingual tablet Exam Height,Weight and Vital Signs: Height 5 ft 7 in Weight 96.5 kg Last Vital Signs Pulse 81 06/06/25 10:09 Resp 16 06/06/25 10:09 BP 196/90 H 06/06/25 10:09 Pulse Ox 98 06/06/25 10:09 O2 Del Method Room Air 06/06/25 10:09 Airway Mallampati Class: II TM Dist: <=3cm Neck ROM: Full Heart: RRR Lungs: CTAB Assessment and Plan Assessment Anesthesia Assessment: Anesthesia Plan Discussed and PAT Visit Final Anesthetic Review Family History of Problems with Anesthesia: No History of Problems with Anesthesia: No
[2025-06-06 12:06] LABS: Hematocrit 37.4 % (42.0-52.0); Hemoglobin 11.7 g/dl (14.0-18.0); Mean Corpuscular HGB Conc 31.3 g/dl (31.0-36.0); Mean Corpuscular Hemoglobin 26.8 pg (27.0-33.0); Mean Corpuscular Volume 85.8 fL (80.0-98.0); NRBC Abs Auto 0.000 X10*3/uL (0.0-0.012); NRBC Pct Auto 0.0 /100WBC (0.0-0.2); Platelet Count 252 X10*3/uL (160-400); Red Blood Count 4.36 X10*6/uL (4.60-5.80); White Blood Count 7.5 X10*3/uL (4.8-10.8)
--- OUTSIDE RECORDS SUMMARY | 2025-08-28 13:34 | XMS_ITS | Continuity of Care Document ---
Author Organization [place] - [facility], [facility] Address [address] [place] [address] Care Team Providers Care Ceo Ziff Davis Name Role Phone JANE JOHN Primary Care Provider [phone] Assessment No assessment recorded. Plan of Treatment Reminders Order Date Submit Date Provider Last Modified By Organization Details Last Modified Time Details Appointments None recorded. Lab None recorded. Referral None recorded. Procedures None recorded. Surgeries None recorded. Imaging [place], modified barium swallow study 2024 025 [email or web address] [facility], [address] [place], [address], 09:29:10 Medication Orders None recorded. Patient TargetsNo targets recorded. Patient InstructionsNo instructions recorded. Reason for Referral None Reported. Results Created Date Observation Date Name Description Value Unit Range Abnormal Flag Note LastModifiedBy Organization Detail LastModifiedTime 08/06/20 25 03/14/2025 calvin acosta study No observ ation record ed. [email or web address] Not Available 2024 10:49:02 Result Notes None recorded. Problems Name Problem SNOMED Code Status Onset Date Resolution Date Notes Provider Name and Address Organization Details Recorded Time Oropharyngeal dysphagia 74919333 Active 2024 BRANDEE Thomas MD [address] [place] [address], [phone] [facility] [place] - [facility] 5 13:33:51 Gastroesophage al reflux disease without esophagitis 674299986 Active 2024 BRANDEE Thomas MD [address] [place] [address] [address], [place], [phone], [facility] - [facility] 5 13:45:21 Problem Notes None recorded. Procedures Surgical History Date Name Laterality Status Provider Name and Address Organization Details Recorded Time FFL_RE completed BRANDEE STEPHENSON MD [address] [address], [place], [address], [facility] - [facility] 06/28/2025 13:31:12 hernia repair completed Yonny Barry [facility] 06/28/2025 13:13:23 Imaging Results None recorded. Procedure [...] 2nd Gen Pen Needle 32 gauge x 5/32 USE TWICE A DAY DIRECTED active Not Available Not Available No t Available Vitals Date Recorded Body height Body mass index (BMI) Body weight Provider Name and Address Organization Details Last Updated DateTime 06/28/2025 170.18 cm 32.3 kg/m2 75858.03 g Yonny Barry [place] - [facility] 06/28/2025 13:11:17 Social History None recorded. Functional Status None recorded. Mental Status None recorded. Family History Nothing Reported. Medical History Condition Response Arthritis Y Hypertension Y Anxiety Y Depression Y Past Encounters Encounter ID Performer Location Encounter Start Date Encounter Closed Date Diagnosis/Indication Diagnosis SNOMED-CT Code Diagnosis ICD10 Code Diagnosis IMO Codes Diagnosis Note [id number] BRANDEE STEPHENSON MD [facility] on [address] [place] [address] 06/28/2025 12:51:06 06/28/2025 14:07:15 Oropharyngeal dysphagia 65790512 R13.12 8208 Prior esophagram was normal. I recommend a modified barium swallow to better assess his swallowing . Laryngosco py was normal. I gave reassuranc e there are no structural lesions. Gastroesop hageal reflux disease without esophagitis 494160079 K21.9 531053 Continue omeprazole . See above. Health Concerns Section Related Observation LastModified by Organization Detai ls LastModified Time None Recorded Concern Status LastModified by Organization Details LastModified Time None Recorded Payers Encounter Date Sequence Insurance Name Policy Number Policy [place] Covered Member ID [place] Member ID Guarantor Name 06/28/2025 1 [facility] (MEDICARE REPLACEMENT/A DVANTAGE - HMO) Isaac Ruelas [id number] Isaac Givens Notes Date Note Type Note [...] and was otherwise unremarkable. BRANDEE STEPHENSON MD [address] [place] [address], [phone], [facility] - [facility] 06/28/2025 13:46:32
--- OUTSIDE RECORDS SUMMARY | 2025-08-28 13:34 | XMS_ITS | Data Portability ---
Author Organization [place] - [facility], Allergy Address [address] [place] [address] Care Team Providers Care Sales And Merchandising Representative Name Role Phone THEODORAJANE CHAVEZ Primary Care Provider [phone] Assessment No assessment recorded. Plan of Treatment Reminders Order Date Submit Date Provider Last Modified By Organization Details Last Modified Time Details Appointments None recorded. Lab None recorded. Referral None recorded. Procedures None recorded. Surgeries None recorded. Imaging [place], modified barium swallow study 2024 025 [email or web address] [facility]iology, [address] [place] [address], [address], 09:29:10 Medication Orders None recorded. Patient TargetsNo targets recorded. Patient InstructionsNo instructions recorded. Reason for Referral None Reported. Results Created Date Observation Date Name Description Value Unit Range Abnormal Flag Note LastModifiedBy Organization Detail LastModifiedTime 08/06/2003/14/2025 calvin acosta study No observ ation record ed. [email or web address] Not Available 2024 10:49:02 Result Notes None recorded. Problems Name Problem SNOMED Code Status Onset Date Resolution Date Notes Provider Name and Address Organization Details Recorded Time Oropharyngeal dysphagia 96647663 Active 2024 BRANDEE Thomas MD [address] [place] [address], [place], [address] , [facility] - [facility] 5 13:33:51 Gastroesophage al reflux disease without esophagitis 761925245 Active 2024 BRANDEE Thomas MD [address] [place], [place] [address], [address], [facility] - [facility] 5 13:45:21 Problem Notes None recorded. Procedures Surgical History Date Name Laterality Status Provider Name and Address Organization Details Recorded Time 5 FFL_RE completed BRANDEE STPEHENSON MD [address] [address], [place], [address], [facility] - [facility] 06/28/2025 13:31:12 hernia repair completed Yonny Barry [facility] 06/28/2025 13:13:23 Imaging Results None recorded. Procedure [...] Updated DateTime 06/28/2025 170.18 cm 32.3 kg/m2 69855.03 g Yonny Baryr [place] - [facility] 06/28/2025 13:11:17 Social History None recorded. Functional Status None recorded. Mental Status None recorded. Family History Nothing Reported. Medical History Condition Response Arthritis Y Anxiety Y Hypertension Y Depression Y Past Encounters Encounter ID Performer Location Encounter Start Date Encounter Closed Date Diagnosis/Indication Diagnosis SNOMED-CT Code Diagnosis ICD10 Code Diagnosis IMO Codes Diagnosis Note [id number] BRANDEE STEPHENSON MD [facility] on [address] [place] [address] 06/28/2025 12:51:06 06/28/2025 14:07:15 Oropharyngeal dysphagia 49405126 R13.12 8208 Prior esophagram was normal. I recommend a modified barium swallow to better assess his swallowing . Laryngosco py was normal. I gave reassuranc e there are no structural lesions. Gastroesop hageal reflux disease without esophagitis 946388896 K21.9 243370 Continue omeprazole . See above. Health Concerns Section Related Observation LastModified by Organization Detai ls LastModified Time None Recorded Concern Status LastModified by Organization Details LastModified Time None Recorded Advance Directives Directive None Recorded Payers Insurance Date Sequence Insurance Name Policy Number Policy [place] Covered Member ID [place] Member ID Guarantor Name 07/02/2025 1 [facility] (MEDICARE REPLACEMENT/A DVANTAGE - HMO) Isaac Ruelas [id number] Isaac Givens Notes Date Note Type Note [...] and was otherwise unremarkable. BRANDEE STEPHENSON MD [address] [place] [address], [phone] - [facility] 06/28/2025 13:46:32
--- OUTSIDE RECORDS SUMMARY | 2025-08-28 13:36 | XMS_ITS | Patient Health Record ---
Author Organization [facility] Address [address] [place] [address] Care Team Providers Care Instructor Painting Name Role Phone Mahad Haddad MD Primary Care Provider Juancarlos Cohen [phone] Allergies No Known Allergies Results Component Value Reference Range Flag Notes Pathology (Not yet reviewed by provider) Interpretation: Performing Lab:[facility], [address] [place] [phone] Notes/Report: Glucose, Whole Blood Reviewed date:09/14/2024 02:25:32 PM Interpretation: Performing Lab:[facility], [address] [place] [phone] Notes/Report: Glucose, Whole Blood 138 60-115 mg/dL H [facility] #: [id number] Reason For Referral No Information Medications Medication [...] Problem Screening for malignant neoplasm of colon (174894249) Encounter for screening for malignant neoplasm of colon (Z12.11) Active confirmed Problem History of adenomatous polyp of colon (751911930) History of adenomatous polyp of colon (Z86.010) Active confirmed Problem Abdominal bloating (395558738) Abdominal bloating (R14.0) Active confirmed Problem Diverticular disease of colon (010270066) Diverticulosis of large intestine without perforation or abscess without bleeding (K57.30) Active confirmed Problem History of malignant neoplasm of colon (296906700) Personal history of other malignant neoplasm of large intestine (Z85.038) Active confirmed Problem History of gastrointestinal tract bypass (910849249) Intestinal bypass and anastomosis status (Z98.0) Active confirmed Problem Gastroesophageal reflux disease with esophagitis (258005281) Gastroesophageal reflux disease with esophagitis (K21.0) Active confirmed Problem History of malignant neoplasm of colon (387541479) History of colon cancer (Z85.038) Active confirmed Problem Diverticulosis of colon (882026087) Diverticulosis of colon (K57.30) Active confirmed Problem Gastroesophageal reflux disease with esophagitis (disorder) (655147039) Gastroesophageal reflux disease with esophagitis without hemorrhage (K21.00) Active confirmed Encounters Encounter Location Date Provider Diagnosis [facility] Outpatient [address] [place] [id number] 09/14/2024 Juancarlos Sher Colon cancer scree geeta [...] Insured Coverage Start Date Coverage End Date [facility] [address] [address] [place] [address] [id number] RACHAEL AGUSTIN Self - patient is the [...] in 2006 Internal hemorrhoids IDDM HTN Denies MT,CVA,Lung disease,renal disease EGD in 04/2011 with erosive esophagitis a nd HH-no Linn's esophagus Hyperlipidemia Colonoscopy in 05/2018 with removal of a tubular adenoma SBO in 02/2020 treated with NG tube--no s urgery Kidney stones Colonoscopy May 2021 Romero ited prep and one small polyp removed but not recovered for pathology Surgical History Surgery Date(Month/Year) Right colectomy for colon cancer as per [facility] Right inguinal hernia 2022-Dr. Schulz Stimulator put in back
--- OUTSIDE RECORDS SUMMARY | 2025-08-28 13:37 | XMS_ITS | Patient Health Record ---
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 Name Role Phone Mahad Haddad Primary Care Provider Allergies No Known Allergies Results Component Value Reference Range Notes Glucose, finger stick Reviewed date:09/28/2024 10:01:27 AM Interpretation: Performing Lab: Notes/Report: Value 210 Glucose, Whole Blood Reviewed date:09/14/2024 12:30:34 PM Interpretation: Performing Lab:[facility], [address] [place] [phone] Notes/Report: Glucose, Whole Blood 138 60-115 mg/dL METER # : [id number] Pathology Reviewed date:09/18/2024 12:42:22 PM Interpretation: Performing Lab:[facility], [address] [place] [phone] Notes/Report: ---- Name: Rachael Sanon Age/Sex: 74/M : 1950 Unit#: [id number] Attend Dr: Juancarlos Jacobs MD Re09/14/24 Status : [facility] Location: [facility] Disch: ---- SPEC : [id number] RECD: 09/14/24 STATUS: TANI KAUFMAN NUM: [id number] KEYSHAWN: 09/14/24-42 [facility] [address]: Juancarlos Jacobs MD ENTERED: 09/14/24-10 45 [...] in 3 parts. A. Received in forma Banjo labeled ?distal transverse colon polyp? are fragments of henriquez-white soft tissue measurin g 0.1-0.4 cm in greatest dimension, forming an aggregate measuring 0.8 x 0.6 x 0.2 cm which i s wrapped in lens paper and entirely submitted for microscopic examination, multipl e pieces in cassette A. B. Received in forma Banjo labeled ?polyp near anastomosis? are 4 fragments of pink white soft tissue measuring 0.2 -0.5 cm in greatest dimension which are wrapped in lens paper and entirely submitted f or microscopic examination, 4 pieces in cassette B. C. Received in forma Banjo labeled ?proximal transverse colon polyp? are 2 [...] Rachael Sanon Age/Sex: 74/M : 1950 Unit#: [id number] Attend Dr: Juancarlos Jacobs MD Re09/14/24 Status : [facility] Location: [facility] Disch: ---- SPEC : [id number] RECD: 09/14/24 STATUS: TANI KAUFMAN NUM: [id number] KEYSHAWN: 09/14/240942 [facility] DR: Juancarlos Jacobs MD ENTERED: 09/14/24-10 45 [...] microscopic examination, 4 pieces in cassette C2. [facility] Copies To: Mahad Haddad MD [facility] [address] [place] [address] [address] [place] [address] Juancarlos Jacobs MD [address] [place] [address] ---- Signed (signature on file) Leora Holguin 09/17/24 1235 ---- END OF REPORT Daniel Reyes date:09/25/2024 04:53:21 PM Interpretation: Performing Lab:[facility], [address] [place] [phone] Notes/Report: Hold Gold See Note Specimen held untested for 24 hours; Call to request Chemistry testing. Hemoglobin A1c Reviewed date:09/25/2024 04:53:31 PM Interpretation: Performing Lab:[address] [phone] Notes/Report: Hemoglobin A1c % 7.7 <6.0 % [...] average glucose, using the formula of the E8R-Baifrcu Average Glucose study (ADAG), Diabetes Care, Vol.31,#8, 2007 Electrolytes Reviewed date:10/19/2024 12:22:07 PM Interpretation: Performing Lab:[facility], [address] [place] [phone] Notes/Report: Sodium 138 135-145 mmol/L Potassium 4.1 3.3-5.1 mmol/L Chloride 104 96-108 mmol/L Carbon Dioxide 27 22-29 mmol/L Anion Gap 11 12-20 Blood Urea Nitrogen Reviewed date:10/19/2024 12:22:27 PM Interpretation: Performing Lab:[facility], [address] [place] [phone] Notes/Report: Blood Urea Nitrogen 12 9-16 mg/dL Creatinine Reviewed date:10/19/2024 05:10:52 PM Interpretation: Performing Lab:[facility], [address] [place] [phone] Notes/Report: Creatinine 0.84 0.5-1.4 mg/dL Estimated Glomerular Filt Rate > 60 Chronic Kidney Disease: Estimated GFR < 60 mL/min/1.73m2 Severe Kidney Disease: Estimated GFR < 15 mL/min/1.73m2 Calcium Reviewed date:10/19/2024 05:11:00 PM Interpretation: Performing Lab:[address] [phone] Notes/Report: Calcium 9.2 8.4-10.2 mg/dL Protein Creatinine Ratio, Ur Reviewed date:10/19/2024 05:11:12 PM Interpretation: Performing Lab:[facility], [address] [place] [phone] Notes/Report: Creatinine Urine 224.81 Total Protein Urine Random 16 <12 mg/dL Protein/Creatinine Ratio, Ur 0.07 <0.2 The spot urine protein:creatinine ratio may increase to 0.3 during normal . Complete Blood Count Auto Di ff Reviewed date:11/03/2024 09:30:06 AM Interpretation: Performing Lab:[facility], [address] [place] [phone] Notes/Report: White Blood Count 7.7 4.8-10.8 X10*3/uL [...] Panel Reviewed date:11/03/2024 09:28:51 AM Interpretation: Performing Lab:[facility], [address] [place] [phone] Notes/Report: Sodium 137 135-145 mmol/L Potassium 4.3 [...] Magnesium Reviewed date:11/02/2024 08:49:02 PM Interpretation: Performing Lab:[facility], [address] [place] [phone] Notes/Report: Magnesium 1.7 1.6-2.6 mg/dL Troponin-I High Sensitivity Reviewed date:11/02/2024 09:11:17 PM Interpretation: Performing Lab:[facility], [address] [place] [phone] Notes/Report: Troponin-I High Sensitivity < 2.7 <3.5-35.0 ng/L The [place] high sensitivity Troponin-I results should be used in conjunction with other diagnostic information such as ECG, clinical observations and information, and patient symptoms to aid in the diagnosis of [place]. Lipase Reviewed date:11/02/2024 08:49:52 PM Interpretation: Performing Lab:[facility], [address] [place] [phone] Notes/Report: Lipase 15 8-78 U/L UA ClnCatch+Micro w/rflx Cul t Reviewed date:11/03/2024 09:29:07 AM Interpretation: Performing Lab:[facility], [address] [place] [phone] Notes/Report: [id number] Urine, Clean Catch Color Urine Yellow Appearance Urine Clear PH 5.5 5.0-9.0 Glucose Urine UA >=1000 Negative mg/dL Urine Blood Negative Negative Specific [place] - Urine >= 1.030 1.005-1.025 Urine Protein Negative Neg-Trace mg/dL Urine Ketones Negative Negative mg/dL Nitrite Urine Negative Negative Leukocyte Esterase Urine Negative Negative XR KUB Reviewed date:11/02/2024 09:10:21 PM Interpretation: Performing Lab: Notes/Report: [address] [address] XRay Report Signed Patient: Rachael Sanon MR#: M [id number] : 1950 Acct:[id number] Age/Sex: 74 / M ADM Date: 11/02/24 Loc: .ED Attending Dr: Ordering Physician: Landy Rutledge CNP Date of Service: 11/02/24 Procedure(s): XR KUB Accession Number(s): [id number] cc: Landy Rutledge CNP; Mahad Haddad MD [...] 11/02/24 1115 DD/ 1027 TD/TT: 11/02/24 1055 Corporate Sales Representative: [address] [address] XRay Report Signed Patient: Rachael Sanon MR#: M [id number] : 1950 Acct:[id number] Age/Sex: 74 / M ADM Date: 11/02/24 Loc: HO.ED Attending Dr: Ordering Physician: Landy Rutledge CNP Date of Service: 11/02/24 Procedure(s): XR KUB Accession Number(s): [id number] cc: Landy Rutledge CNP; Mahad Haddad MD [...] 11/02/24 1115 DD/ 1027 TD/TT: 11/02/24 1055 Corporate Sales Representative: XR chest 2V Reviewed date:11/03/2024 09:28:31 AM Interpretation: Performing Lab: Notes/Report: [address] [address] XRay Report Signed Patient: Rachael Sanon MR#: M [id number] : 1950 Acct:[id number] Age/Sex: 74 / M ADM Date: 11/02/24 Loc: HO.ED Attending Dr: Ordering Physician: Landy Rutledge CNP Date of Service: 11/02/24 Procedure(s): XR chest 2V Accession Number(s): [id number] cc: Landy Rutledge CNP; Mahad Haddad MD [...] 11/02/24 1112 DD/ 1040 TD/TT: 11/02/24 1055 Corporate Sales Representative: [address] [address] XRay Report Signed Patient: Rachael Sanon MR#: M [id number] : 1950 Acct:[id number] Age/Sex: 74 / M ADM Date: 11/02/24 Loc: HO.ED Attending Dr: Ordering Physician: Landy Rutledge CNP Date of Service: 11/02/24 Procedure(s): XR teri st 2V Accession Number(s): [id number] cc: Landy Rutledge DIGITAL MARKETING OFFICER; Mahad Haddad MD EXAMINATION: XR CHEST CLINICAL [...] 11/02/24 1112 DD/ 1040 TD/TT: 11/02/24 1055 Corporate Sales Representative: ABHINAV ClnCatch+Micro w/rflx Cul t Reviewed date:11/03/2024 09:32:21 AM Interpretation: Performing Lab:[facility], [address] [place] [phone] Notes/Report: [id number] Urine, Clean Catch Color Urine Yellow Appearance Urine Clear PH 5.5 5.0-9.0 Glucose Urine UA >=1000 Negative mg/dL Urine Blood Negative Negative Specific [place] - Urine >= 1.030 1.005-1.025 Urine Protein Negative Neg-Trace mg/dL Urine Ketones Negative Negative mg/dL Nitrite Urine Negative Negative Leukocyte Esterase Urine Negative Negative RBC Urine 0-2 0-2 /HPF WBC Urine 0-5 0-5 /HPF Squamous Epithelial Cell Urine 0-2 0-2 /HPF Bacteria Urine None Seen None Seen Hyaline Casts Urine 0-2 0-2 /LPF Glucose, Whole Blood Reviewed date:11/06/2024 12:20:28 PM Interpretation: Performing Lab:[facility], [address] [place] [phone] Notes/Report: Glucose, Whole Blood 176 60-115 mg/dL METER # : [id number] Pathology Reviewed date:11/08/2024 10:59:39 AM Interpretation: Performing Lab:[facility], [address] [place] [phone] Notes/Report: ---- Name: Rachael Sanon Age/Sex: 74/M : 1950 Unit#: [id number] Attend Dr: Rafita Garland MD Re11/05/24 Status : [facility] Location: [facility] Disch: ---- SPEC : [id number] RECD : 11/05/24 STATUS: TANI KAUFMAN NUM: [id number] KEYSHAWN: 11/05/24-110 [facility] DR: Rafita Garland MD ENTERED: 11/05/24-07 08 [...] To: Rafita Garland MD [facility] [address] [facility] [address] [place] [address] Mahad Haddad MD [facility] [address] [place] [address] [address] [place] [address] ---- Signed (signature on file) Effie Newman MD 11/06/24 6662 ---- END OF REPORT US carotid duplex BI Reviewed date:02/14/2025 05:17:19 PM Interpretation: Performing Lab: Notes/Report: [address] [address] Ultrasound Report Signed Patient: Rachael Sanon MR#: M [id number] : 1950 Acct:[id number] Age/Sex: 74 / M ADM Date: 02/04/25 Loc: HO.US Attending Dr: Mahad Haddad MD Ordering Physician: Mahad Haddad MD Date of Service: 02/04/25 Procedure(s): US carotid duplex BI Accession Number(s): [id number] cc: Mahad Haddad MD EXAMINATION: US EXTRACRANIAL [...] 02/04/25 1554 DD/ 1524 TD/TT: 02/04/25 1536 Corporate Sales Representative: [place] [address] Ultrasound Report Signed Patient: Rachael Sanon MR#: M [id number] : 1950 Acct:[id number] Age/Sex: 74 / M ADM Date: 02/04/25 Loc: HO.US Attending Dr: Mahad Haddad MD Ordering Physician: Mahad Haddad MD Date of Service: 02/04/25 Procedure(s): US car otid duplex BI Accession Number(s): [id number] cc: Mahad Haddad MD EXAMINATION: US EXTRACRANIAL [...] 02/04/25 1554 DD/ 1524 TD/TT: 02/04/25 1536 Corporate Sales Representative: CT abdomen pelvis wo con Reviewed date:02/14/2025 04:17:53 PM Interpretation: Performing Lab: Notes/Report: [address] [address] [address] Scan Report Signed Patient: Rachael Sanon MR#: M [id number] : 1950 Acct:[id number] Age/Sex: 74 / M ADM Date: 02/12/25 Loc: HO.CT Attending Dr: Maldonado Mota MD Ordering Physician: Maldonado Mota MD Date of Service: 02/12/25 Procedure(s): CT abdomen pelvis wo IV con Accession Number(s): [id number] cc: Mahad Haddad MD; Maldonado Mota MD Report Number: [id number]: Total DLP = 594.00 mGy-cm EXAMINATION: CT [...] 02/12/25 1724 DD/ 1539 TD/TT: 02/12/25 1648 Corporate Sales Representative: [place] [address] CT Scan Report Signed Patient: Rachael Sanon MR#: M [id number] : 1950 Acct:[id number] Age/Sex: 74 / M ADM Date: 02/12/25 Loc: HO.CT Attending Dr: Maldonado Mota MD Ordering Physician: Maldonado Mota MD Date of Service: 02/12/25 Procedure(s): CT abd omen pelvis wo IV con Accession Number(s): [id number] cc: Mahad Haddad MD; Maldonado Mota MD Report Number: [id number]: Total DLP = 594.00 mGy-cm EXAMINATION: CT [...] 02/12/25 1724 DD/ 1539 TD/TT: 02/12/25 1648 Corporate Sales Representative: Complete Blood Count Auto Di ff Reviewed date:02/26/2025 02:51:23 PM Interpretation: Performing Lab:[facility], [address] [place] [phone] Notes/Report: White Blood Count 9.1 4.8-10.8 X10*3/uL [...] NRBC Abs Auto 0.000 0.0-0.012 X10*3/uL Comprehensive [place]. Panel Fa st Reviewed date:02/26/2025 02:50:00 PM Interpretation: Performing Lab:[facility], [address] [place] [phone] Notes/Report: Sodium 140 135-145 mmol/L Potassium 4.1 [...] Panel Reviewed date:02/26/2025 02:46:02 PM Interpretation: Performing Lab:[facility], [address] [place] [phone] Notes/Report: Triglycerides 50 <150 mg/dL Desirable Triglyceride: [...] (Free>4and<10) Reviewed date:02/26/2025 05:00:42 PM Interpretation: Performing Lab:[address] [phone] Notes/Report: PSA,Total (Free>4and<10) 1.97 0.00-4.00 ng/mL A [...] Random Reviewed date:02/26/2025 02:52:27 PM Interpretation: Performing Lab:[facility], [address] [place] [phone] Notes/Report: Creatinine Urine 90.01 Microalbumin Urine 11.0 Microalbum/Creatinine Ratio Ur 12.2 <30 ug/mg cr Albumin/Creatinine Ratio Reference Ranges: Normal: < 30 ug/mg creatinine Microalbuminuria: 30 - 300 ug/mg creatinine Clinical Albuminuria: > 300 ug/mg creatinine Hemoglobin A1c Reviewed date:02/26/2025 05:00:57 PM Interpretation: Performing Lab:[address] [phone] Notes/Report: Hemoglobin A1c % 8.3 <6.0 % [...] average glucose, using the formula of the H9E-Phabkug Average Glucose study (ADAG), Diabetes Care, Vol.31,#8, 2007 UA ClnCatch+Micro w/rflx Cul t Reviewed date:02/26/2025 02:54:43 PM Interpretation: Performing Lab:[facility], [address] [place] [phone] Notes/Report: [id number] Urine, Clean Catch Color Urine Yellow Appearance Urine Clear PH 8.5 5.0-9.0 Glucose Urine UA Negative Negative mg/dL Urine Blood Negative Negative Specific [place] - Urine 1.015 1.005-1.025 Urine Protein Negative Neg-Trace mg/dL Urine Ketones Negative Negative mg/dL Nitrite Urine Negative Negative Leukocyte Esterase Urine Negative Negative RBC Urine 0-2 0-2 /HPF WBC Urine 0-5 0-5 /HPF Squamous Epithelial Cell Urine 0-2 0-2 /HPF Bacteria Urine None Seen None Seen Hyaline Casts Urine 0-2 0-2 /LPF Electrolytes Reviewed date:04/19/2025 12:34:46 PM Interpretation: Performing Lab:[facility], [address] [place] [phone] Notes/Report: Sodium 139 135-145 mmol/L Potassium 4.0 3.3-5.1 mmol/L Chloride 103 96-108 mmol/L Carbon Dioxide 29 22-29 mmol/L Anion Gap 11 12-20 Blood Urea Nitrogen Reviewed date:04/21/2025 05:39:01 PM Interpretation: Performing Lab:[facility], [address] [place] [phone] Notes/Report: Blood Urea Nitrogen 13 9-16 mg/dL Creatinine Reviewed date:04/19/2025 12:33:49 PM Interpretation: Performing Lab:[facility], [address] [place] [phone] Notes/Report: Creatinine 0.87 0.5-1.4 mg/dL Estimated Glomerular Filt Rate > 60 Chronic Kidney Disease: Estimated GFR < 60 mL/min/1.73m2 Severe Kidney Disease: Estimated GFR < 15 mL/min/1.73m2 Calcium Reviewed date:04/19/2025 12:33:24 PM Interpretation: Performing Lab:[facility], [address] [place] [phone] Notes/Report: Calcium 9.0 8.4-10.2 mg/dL Complete Blood Count no Diff Reviewed date:06/06/2025 07:22:57 PM Interpretation: Performing Lab:[facility], [address] [place] [phone] Notes/Report: White Blood Count 7.5 4.8-10.8 X10*3/uL [...] A1c Reviewed date:06/06/2025 07:18:49 PM Interpretation: Performing Lab:[facility], [address] [place] [phone] Notes/Report: Hemoglobin A1c % 10.2 <6.0 % [...] average glucose, using the formula of the A8P-Cwpiqbd Average Glucose study (ADAG), Diabetes Care, Vol.31,#8, Mar. 2007 Type and Screen Reviewed date:06/06/2025 07:18:36 PM Interpretation: Performing Lab:[facility], [address] [place] [phone] Notes/Report: Spec expiration changed by MATEO on 06/06/25 Reason: PAT SSS WITNESSED BY [facility]HEL[facility] NURSING: Call Blood Bank (ext. [phone]) to band patient on admission. Type and [...] referral needs to go under Shirin Quezada [phone] Referral Priority Routine Referral Appointment Date 06/28/2025 Medications Medication SIG (Take, Route, Frequency, Duration) Notes Start Date End Date Status hydrALAZINE HCl 100 MG 1 tablet Orally t hree times daily Active Pen [place] 33G X 4 MM as directed [...] Problem Status W/U Status Risk Notes Problem 37554193 Prostatism (N40.0) Active confirmed Problem Anxiety (81571489) Anxiety (F41.9) Active confirmed Problem Dysphagia (74202443) Dysphagia (R13.10) Active confirmed Problem 859115882 Diverticulitis (K57.92) Active confirmed Problem 06854615 Irritable bowel syndrome without diarrhea (K58.9) Active confirmed Problem 48781191 Lumbar disc dise ase (M51.9) Active confirmed Problem 86171319 Essential hypert ension (I10) Active confirmed Problem 70594275 Type 2 diabetes mellitus without complication (E11.9) Active confirmed Problem 21541726 Memory loss (R41.3) Active confirmed Problem 191593346 History of colon cancer (Z85.038) Active confirmed Problem Dysthymia (44654129) Dysthymia (F34.1) Active confirmed Problem 24132389 Heart burn (R12) Active confirmed Problem 171644981 Pure hypercholesterolemia (E78.00) Active confirmed Problem 663608074 Back pain, unspe cified back location, unspecified back pain laterality, unspecified chronicity (M54.9) Active confirmed Problem 992233531 BMI 32.0-32.9,ad ult (Z68.32) Active confirmed Problem Psychoactive substance dependence (1534030) Drug dependence (F19.20) Active confirmed Problem 618481053 SBO (small bowel obstruction) (K56.609) Active confirmed Problem 505351741 Dry eyes, bilate ral (H04.123) Active confirmed Vital Signs Blood pressure diastolic 80 mm Hg 03/26/2025 Height 68 in 03/26/2025 Blood pressure systolic 116 mm Hg 03/26/2025 Weight 216 lbs 03/26/2025 BMI 32.84 kg/m2 03/26/2025 Encounters Encounter Location Date Provider Diagnosis Mahad Haddad MD [address] [place] [id number] 09/21/2024 Mahad Haddad Type 2 diabetes margi itus without complication E11.9 and Pure hypercholesterolemia E78.00 Mahad Haddad MD [address] [place] [address] Drive [address] [place] [id number] 02/26/2025 Mahad Haddad Blood tests for rout ine general physical examination Z00.00 ; Essential hypertension I10 ; Type 2 diabetes mellitus without complication E11.9 ; Prostatism N40.0 and Pure hypercholesterolemia E78.00 Mahad Haddad MD [address] [place] [id number] 09/28/2024 Mahad Haddad Type 2 diabetes margi itus without complication E11.9 and Encounter for general adult medical examination without abnormal findings Z00.00 Mahad Haddad MD [address] [place] [id number] 03/05/2025 Mahad Haddad Annual physical exam Z00.00 ; Skin lesion L98.9 ; Back pain, unspecified back location, unspecified back pain laterality, unspecified chronicity M54.9 ; Essential hypertension I10 ; Type 2 diabetes mellitus without complication E11.9 ; Dysphagia R13.10 ; Pure hypercholesterolemia E78.00 ; Prostatism N40.0 ; Colon cancer screening Z12.11 and Depression screening Z13.31 Mahad Haddad MD [address] [place] [id number] 03/26/2025 Mahad Haddad Dysphagia R13.10 Mahad Haddad MD [address] [place] [id number] 09/28/2024 Mahad Haddad MD [address] [id number] 11/02/2024 Mahad Haddad MD [address] [id number] 12/18/2024 Mahad Haddad Type 2 diabetes margi itus without complication E11.9 Mahad Haddad MD [address] [place] [id number] 12/27/2024 Mahad Haddad Assessments Encounter Date Diagnosis [...] will be booked at [facility] , will continue current regiment [...] 03/05/2025 Complete Blood Count Auto Diff Comprehensive [place]. Panel Fast Liver Panel 09/21/2024 Glucose Fasting [...] Provider Name:Mahad Jang ier, 08/30/2025 07:30:00 AM, [address] [place] [address], [address] [place] [address], [phone], Provider Name:Mahad Jang ier, 09/05/2025 09:00:00 AM, [address] [place] [address], [address] [place] [address], [phone], Provider Name:Mahad Jang ier, 10/03/2025 11:00:00 AM, [address] [place] [address], [address] [place] [address], [phone], Provider Name:Mahad Leivarose ier, 02/27/2026 07:45:00 AM, [address] [place] [address], [address], [phone], Provider Name:Mahadelif Jang ier, 03/06/2026 09:30:00 AM, [address] [place] [address], [address], [phone], Insurance Providers Payer Name Payer Address Payer Phone Subscriber Number Group Number Insured Name Patient Relationship to Insured Coverage Start Date Coverage End Date [facility] [employer] [address] [address] [place] [address] [id number] RACHAEL CARTER Self - patient is the insured [employer] [address] [place] [address] [id number] RACHAEL CARTER Self - patient is the [...]
== END 2025-06-06 00:01 | disposition home or self-care (01) ==
LOC: HO.PAT
PROVIDERS: Nurse Practitioner; PCP Internal Medicine; Visit Provider Surgery
DX: K56.600 Partial intestinal obstruction, unspecified as to cause (principal); E11.9 Type 2 diabetes mellitus without complications; Z01.84 Encounter for antibody response examination
CPT/HCPCS: 36415; 83036; 85027; 86850; 86900; 86901; 93005

== ENCOUNTER → 2025-06-06 11:20 | Outpatient (BNV) | payer MEDICARE, SELFPAY | PROVIDERS: Admitting Provider Surgery; PCP Internal Medicine; Visit Provider Internal Medicine | DX: R94.31 Abnormal electrocardiogram [ECG] [EKG] (principal); Z01.810 Encounter for preprocedural cardiovascular examination | CPT/HCPCS: 93010 ==

== ENCOUNTER 2025-08-02 11:49 | Outpatient (AMB) | payer OTHER, SELFPAY ==
--- OUTSIDE RECORDS SUMMARY | 2024-09-14 03:30 | XMS_ITS ---
Author Organization [facility] Address [address] [place] [address] Care Team Providers Care Auctioneer Tobacco Name Role Phone Boo SIMS, Mahad Primary Care Provider Juancarlos Cohen [phone] REASON FOR VISIT 2 day prep, colon screening Problems Problem Type SNOMED Code ICD Code Onset Dates Problem Status W/U Status Risk Notes Problem History of gastrointestinal tract bypass (850985126) Intestinal bypass and anastomosis status (Z98.0) Active confirmed Problem Diverticular disease of colon (088307449) Diverticulosis of large intestine without perforation or abscess without bleeding (K57.30) Active confirmed Encounters Encounter Location Date Provider [place] [facility] [place] [address] [place], [place] [phone] 09/14/2024 Juancarlos Sher Colon cancer scree geeta [...] Notes * RACHAEL AGUSTINDOB: (75 yo M)Acc No.[id number]:09/14/2024 COLON WITH MAC Patient: RACHAEL HEWITT Provider: William Sher MD :1950 A ge:74 Y S ex:Male Date:09/14/2024 Address: [address], [place], [facility] Pcp:Mahad Haddad MD Subjective: * Chief Complaints: [...] Modifiers: PT 0529F INTRVL 3+YRS PTS CLNSCP [id number] RCMND FLW-UP 10 YRS DOCD, Modifiers: 1P Billing Information: * Procedure Codes: 61250 LESION REMOVAL COLONOSCOPY. Modifiers: PT 0529F INTRVL [...] 0 09/14/2024 Generated for Xena purdy/Adina/Wesleyitting on: 10/03/2024 11:54 AM EST
--- OUTSIDE RECORDS SUMMARY | 2024-09-21 02:30 | XMS_ITS ---
Author Organization Mahad Haddad MD Address [address] [place] [phone] Care Team Providers Care Caddymaster Name Role Phone Mahad Haddad Primary Care Provider REASON FOR VISIT fasting lipids Encounters Encounter Location Date Provider Diagnosis Mahad Haddad MD [address] [place] [phone] 09/21/2024 Mahad Haddad Type 2 diabetes margi itus without complication E11.9 and Pure hypercholesterolemia E78.00 Assessments Encounter Date Diagnosis (ICD Code) Assessment Notes Treatment Notes Treatment Clinical Notes Section Notes 09/21/2024 Type 2 diabetes margi itus without complication (ICD-10 - E11.9) 09/21/2024 Pure hypercholesterolemia (ICD-10 - E78.00) Plan Of Treatment Pending Test Test Name Order Date Liver Panel 09/21/2024 Glucose Fasting 09/21/2024 Lipid Panel with Reflex 09/21/2024 Hemoglobin A1c 09/21/2024 Next Appt Details Provider Name:Mahad cashr, 08/30/2025 07:30:00 AM, [address] [place] [address], Suite [facility], [place], [place], [phone], Provider Name:Mahad Jang ier, 09/05/2025 09:00:00 AM, [address] [place] [address], Suite [facility], [place], [place], [phone], Provider Name:Mahad cashr, 10/03/2025 11:00:00 AM, [address] [place] [address], [address], [phone], Provider Name:Mahad cashr, 02/27/2026 07:45:00 AM, [address] [place] [address], Suite [facility], [place], [place], [phone], Provider Name:Mahad cashr, 03/06/2026 09:30:00 AM, [address] [place] [address], [address] [place] [address], [phone], Progress Notes * ELIZABETH CARTERDIANEDOB:[birth year] (75 yo M)Acc No.[id number]:09/21/2024 Progress Note Patient: RACHAEL KONG Provider: Damion Haddad MD :1950 A ge:74 Y S ex:Male Date:09/21/2024 Address: [address] [id number] Subjective: * Chief Complaints: * 1 . [...] MD Date: 0 09/21/2024 Generated for Xena purdy/Adina/Marysmitting on: 1 10/03/2024 11:53 AM EST
--- OUTSIDE RECORDS SUMMARY | 2024-09-28 05:15 | XMS_ITS ---
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 Name Role Phone Mahad Haddad Primary Care Provider Allergies No Known Allergies Results Component Value Reference Range Notes Glucose, finger stick Reviewed date:09/28/2024 10:01:27 AM Interpretation: Performing Lab: Notes/Report: Value 210 REASON FOR VISIT 6 months DM, AWV, Accompanied by son Medications Medication SIG (Take, Route, Frequency, Duration) Notes Start Date End Date Status OneTouch Ultra - as directed In Vitro 3 times a day for 30 days 08/29/2023 Active Pen Badger 33G X 4 MM as directed sq tw ice a day for 30 days 10/27/2023 Active Pioglitazone HCl 15 MG 1 tablet Orally O nce a day Active Tamsulosin HCl 0.4 MG 1 capsule 30 minut es after the same meal each day Orally Once a day Active Finasteride 5 MG 1 tablet Orally Once a day Active Acarbose 50 MG as directed Orally tid Active Dicyclomine HCl 10 MG 2 capsules Orally Three times a day for 30 day(s) Active Omeprazole 20 MG 1 capsule 30 minutes before morning meal Orally Once a day for 30 day(s) Active Suboxone 2-0.5 MG 1 film under the tongue and allow to dissolve Sublingual Once a day Active hydrALAZINE HCl 100 MG 1 tablet Orally t hree times daily Active Zofran 4 MG 1 tablet Orally TID prn Not-Taking Meclizine HCl 25 MG 1 tablet as needed Orally every 12 hrs for 30 days Active Fioricet 50-300-40 MG 1-2 capsule as nee ded Orally every 6 hours prn Not-Taking Atorvastatin Calcium 40 MG TAKE 1 TABLET BY MOUTH EVERY DAY Orally Once a day for 90 days Active Cefdinir 300 MG 1 capsule Orally every 12 hrs for 7 days Not-Taking Cyclobenzaprine HCl 10 MG 1 tablet at be dtime as needed Orally Once a day for 30 day(s) Not-Taking Aspir-81 81 MG 1 tablet Orally Once a day for 30 day(s) Not-Taking Acarbose 50 MG as directed Orally Not-Taking Ibuprofen 800 MG 1 tablet with food o r milk as needed Orally Three times a day Not-Taking Hyoscyamine Sulfate 0.125 MG 1 tablet as needed Orally twice a day for 90 days 10/16/2018 Not-Taking Lantus SoloStar 100 UNIT/ML INJECT 15 UN ITS SUBCUTANEOUSLY EVERY DAY DIRECTED Active Carvedilol 6.25 MG 1 tablet with food Orally Twice a day Active hydroCHLOROthiazide 25 MG TAKE 1 TABLET BY MOUTH EVERY DAY IN THE MORNING FOR 30 DAYS Active Losartan Potassium 100 MG 1 tablet Orall y Once a day 10/10/2020 Active metFORMIN HCl 500 MG TAKE 1 TABLET BY MOUTH TWICE A DAY WITH MEALS Active Wellbutrin XL 150 MG 1 tablet in the morning Orally Once a day 10/10/2020 Active Social History Tobacco Use: Social History Observation Description Date Details (start date - stop date) Never Smoker NA - NA Tobacco Use/Smoking Question Answer Notes Patient is a nonsmoker Additional Findings: Tobacco Non-User Cu rrent non-smoker, currently using no form of tobacco Alcohol Screen Question Answer Notes Did you have a drink containing alcohol in the p ast year? No Points 0 Interpretation Negative Vital Signs Blood pressure systolic 158 mm Hg 09/28/19 25 Blood pressure diastolic 84 mm Hg 025 Height 68 in 09/28/2024 Weight 216 lbs 09/28/2024 BMI 32.84 kg/m2 09/28/2024 Encounters Encounter Location Date Provider Diagnosis Mahad Haddad MD [address] [place] [phone] 09/28/2024 Mahad Haddad Type 2 diabetes mellitus without complication E11.9 and Encounter for general adult medical examination without abnormal findings Z00.00 Assessments Encounter Date Diagnosis (ICD Code) Assessment Notes Treatment Notes Treatment Clinical Notes Section Notes 09/28/2024 Type 2 diabetes mellitus without complication (ICD-10 - E11.9) 09/28/2024 Encounter for general adult medical examination without abnormal findings (ICD-10 - Z00.00) Plan Of Treatment Medication Medication Name Sig Start Date Stop Date Notes Atorvastatin Calcium 40 MG TAKE 1 TABLET BY MOUTH EVERY DAY Orally Once a day for 90 days Next Appt Details Follow Up: 1 Year, Reason: A [place] Provider Name:Mahad de la paz, 08/30/2025 07:30:00 AM, [address] [place] [address], [address], [phone], Provider Name:Mahad de la paz, 09/05/2025 09:00:00 AM, [address] [place] [address], [address], [phone], Provider Name:Mahad de la paz, 10/03/2025 11:00:00 AM, [address] [place] [address], [address], [phone], Provider Name:Mahad de la paz, 02/27/2026 07:45:00 AM, [address] [place] [address], [phone], Provider Name:Mahad Jang ier, 03/06/2026 09:30:00 AM, [address], [address], [place], [place], [phone], Progress Notes * RACHAEL CARTERDOB:[birth year] (74 yo M)Acc No.[id number]:09/28/2024 Progress Note Patient: RACHAEL KONG Provider: Damion Haddad MD :1950 A ge:74 Y S ex:Male Date:09/28/2024 Address: [address], [place], [id number] Subjective: * Chief Complaints: * 6 months DM, AWVAccompanied by son * HPI: A nnual Wellness Visit: 74 year old male presents with c/o of A nnual Wellness Visit , Annual Wellness Visit. Medical / Social History Reviewed T he following items were reviewed and updated during today's visit P ast Medical History, [place] of Care, Surgical/Hospitalization History, Current medications including OTC and supplements, Family History, Tobacco use, Alcohol use, Illicit drug use. H ome Safety T hrow rugs? N o, G rab bars? Y es In bathroom and by exteriror door, R aised toilet seats? Y es Seat with Rails is installed at home, W orking smoke detectors? Y es, W orking carbon monoxide detectors? Y es. A ctivities of Daily Living (ADLs) D ifficulty bathing or showering? Y es independently but has become more difficult, D ifficulty dressing? Y es can still perform dressing independantly, D ifficulty using the toilet? N o, D ifficulty getting in and out of bed? N o, D ifficulty walking? Y es moderate difficulty, using walker outside of house and at night, R eceives help from another person with any of the above Y es Has help from family members. E nd-of-Life Planning E nd of Life Planning N ot needed. A nswers for HPI/ROS submitted by the patient C hange in Weight N o, C hange in hearing N o. HRA filled out by the patient, reviewed by Provider and scanned. HRA filled out by the patient, reviewed by Provider and scanned. F all Risk: History H ave you had two or more falls in the past year??No, H ave you had any falls with injury in the past year? N o. D epression Screening: PHQ-9 T houghts that you would be better off or of hurting yourself in some way N ot at all, T otal Score 9 , I nterpretation M ild Depression. I nterpretation and Intervention D epression Screening Findings N egative, F ollow-Up for Depression : review of PHQ-9 found negative result, no follow-up needed. S JIMMY Questions: SDOH Questions I n the past year have you been worried about losing housing? N o, I n the past year have you or any family members you live with been unable to get any of the following when it was really needed? Check all that apply: N one. S ymptom(s): patient is a 74 yo male here for 6 month follow up visit and review of DM. * ROS: G eneral/Constitutional: Patient complaining of c hange in appetite, sleep disturbance, weight gain. C hange in appetite a dmits, that is mild decrease in appetite. D enies C hills. D enies F atigue. D enies?Fever. D enies H eadache. S leep disturbance a dmits, has trouble maintaining sleep most nights. W eight gain a dmits, is minimal and pt is not sure why since appetite is down. E NT: Patient complaining of d ecreased hearing, especially right side. D enies S ore throat. E ndocrine: Patient complaining of h ad a low sugar one time. ? R espiratory: Denies C ough, w ith exertion, non-productive. D enies S hortness of breath at rest. D enies S hortness of breath with exertion, t hat is severe. A dmits W heezing, w ith exertion. G astrointestinal: Denies C hange in bowel habits. D enies D iarrhea,?that is intermittent. D enies N ausea. M usculoskeletal: Patient complaining of s ciatica, painful joints, in particular the left knee. A dmits S ciatica. S kin: Patient complaining of d ry skin, especially on lower legs.? * Medical History: * Surgical History: * Hospitalization/Major Diagno stic Procedure: * Family History: 2 son(s) . . pt doesn\'t know parent\'s history. * Social History: T obacco Use: T obacco Use/Smoking P atient is a n onsmoker, A dditional Findings: Tobacco Non-User C urrent non-smoker, currently using no form of tobacco. D rugs/Alcohol: A lcohol Screen D id you have a drink containing alcohol in the past year? N o, P oints 0 , I nterpretation N egative. M iscellaneous: C affeine: yes. Children: yes. Exercise: yes, walks for half an hour and yard work. Housing: owning. Living with: spouse and son. Marital status: . Pets: none. Travel outside of the [place]: no. * Medications: T akingMeclizine HCl 25 MG Tablet Chewable 1 tablet as needed Orally every 12 hrs Dicyclomine HCl 10 MG Capsule 2 capsules Orally Three times a day Suboxone 2-0.5 MG Film 1 film under the tongue and allow to dissolve Sublingual Once a day Omeprazole 20 MG Capsule Delayed Release 1 capsule 30 minutes before morning meal Orally Once a day hydrALAZINE HCl 100 MG Tablet 1 tablet Orally three times daily Acarbose 50 MG Tablet as directed Orally tid OneTouch Ultra - Strip as directed In Vitro 3 times a day Pioglitazone HCl 15 MG Tablet 1 tablet Orally Once a day Pen Badger 33G X 4 MM Miscellaneous as directed sq twice a day Finasteride 5 MG Tablet 1 tablet Orally Once a day Tamsulosin HCl 0.4 MG Capsule Extended Release 24 Hour 1 capsule 30 minutes after the same meal each day Orally Once a day Wellbutrin XL 150 MG Tablet Extended Release 24 Hour 1 tablet in the morning Orally Once a day Carvedilol 6.25 MG Tablet 1 tablet with food Orally Twice a day Losartan Potassium 100 MG Tablet 1 tablet Orally Once a day hydroCHLOROthiazide 25 MG Tablet TAKE 1 TABLET BY MOUTH EVERY DAY IN THE MORNING FOR 30 DAYS metFORMIN HCl 500 MG Tablet TAKE 1 TABLET BY MOUTH TWICE A DAY WITH MEALS Atorvastatin Calcium 40 MG Tablet TAKE 1 TABLET BY MOUTH EVERY DAY Lantus SoloStar 100 UNIT/ML Solution Pen-injector INJECT 15 UNITS SUBCUTANEOUSLY EVERY DAY DIRECTED Taking Meclizine HCl 25 MG Tablet Chewable 1 tablet as needed Orally every 12 hrs Taking Dicyclomine HCl 10 MG Capsule 2 capsules Orally Three times a day Taking Suboxone 2-0.5 MG Film 1 film under the tongue and allow to dissolve Sublingual Once a day Taking Omeprazole 20 MG Capsule Delayed Release 1 capsule 30 minutes before morning meal Orally Once a day Taking hydrALAZINE HCl 100 MG Tablet 1 tablet Orally three times daily Taking Acarbose 50 MG Tablet as directed Orally tid Taking OneTouch Ultra - Strip as directed In Vitro 3 times a day Taking Pioglitazone HCl 15 MG Tablet 1 tablet Orally Once a day Taking Pen Badger 33G X 4 MM Miscellaneous as directed sq twice a day Taking Finasteride 5 MG Tablet 1 tablet Orally Once a day Taking Tamsulosin HCl 0.4 MG Capsule Extended Release 24 Hour 1 capsule 30 minutes after the same meal each day Orally Once a day Taking Wellbutrin XL 150 MG Tablet Extended Release 24 Hour 1 tablet in the morning Orally Once a day Taking Carvedilol 6.25 MG Tablet 1 tablet with food Orally Twice a day Taking Losartan Potassium 100 MG Tablet 1 tablet Orally Once a day Taking hydroCHLOROthiazide 25 MG Tablet TAKE 1 TABLET BY MOUTH EVERY DAY IN THE MORNING FOR 30 DAYS Taking metFORMIN HCl 500 MG Tablet TAKE 1 TABLET BY MOUTH TWICE A DAY WITH MEALS Taking Atorvastatin Calcium 40 MG Tablet TAKE 1 TABLET BY MOUTH EVERY DAY Taking Lantus SoloStar 100 UNIT/ML Solution Pen-injector INJECT 15 UNITS SUBCUTANEOUSLY EVERY DAY DIRECTED Not-Taking/PRNAspir-81 81 MG Tablet Delayed Release 1 tablet Orally Once a day Cyclobenzaprine HCl 10 MG Tablet 1 tablet at bedtime as needed Orally Once a day Ibuprofen 800 MG Tablet 1 tablet with food or milk as needed Orally Three times a day Acarbose 50 MG Tablet as directed Orally Hyoscyamine Sulfate 0.125 MG Tablet 1 tablet as needed Orally twice a day Zofran 4 MG Tablet 1 tablet Orally TID prn Fioricet 50-300-40 MG Capsule 1-2 capsule as needed Orally every 6 hours prn Cefdinir 300 MG Capsule 1 capsule Orally every 12 hrs Medication List reviewed and reconciled with the patientNot-Taking/PRN Aspir-81 81 MG Tablet Delayed Release 1 tablet Orally Once a day Not-Taking/PRN Cyclobenzaprine HCl 10 MG Tablet 1 tablet at bedtime as needed Orally Once a day Not-Taking/PRN Ibuprofen 800 MG Tablet 1 tablet with food or milk as needed Orally Three times a day Not-Taking/PRN Acarbose 50 MG Tablet as directed Orally Not-Taking/PRN Hyoscyamine Sulfate 0.125 MG Tablet 1 tablet as needed Orally twice a day Not-Taking/PRN Zofran 4 MG Tablet 1 tablet Orally TID prn Not-Taking/PRN Fioricet 50-300-40 MG Capsule 1-2 capsule as needed Orally every 6 hours prn Not-Taking/PRN Cefdinir 300 MG Capsule 1 capsule Orally every 12 hrs Medication List reviewed and reconciled with the patient * Allergies: N .K.D.A.yes[Allergies Verified] Objective: * Vitals: H t: 68, Wt: 216, BMI:32.84, BP:158/84, Repeat BP:158/92, Wt-k.98. * P ast Orders: L ab:Hemoglobin A1c (Order Date - 09/21/2024) (Collection Date & Time - 09/21/2024 07:30 AM) Value Reference Range Hemoglobin A1c % 7.7 H <6.0 - % Estimated Average Glucose 174 - mg/dL L ab:Glucose, Whole Blood (Order Date - 09/14/2024) (Collection Date & Time - 09/14/2024 08:04 AM) Value Reference Range Glucose, Whole Blood 138 H 60-115 - mg/dL * Examination: A [place]: Balance . Hearing . EKG Not clinically necessary. Written plan C ompleted. G eneral Examination: GENERAL APPEARANCE: a lert, well hydrated, in no distress.? EYES: e xtraocular movement full and smooth. SKIN: g ood turgor. HEART: n o murmurs, rubs, gallops. LUNGS: n o wheezes, rales, rhonchi, good air movement, clear to auscultation bilaterally. Assessment: * Assessment: 1. E ncounter for general adult medical examination without abnormal findings - Z00.00 (Primary) 2 . T ype 2 diabetes mellitus without complication - E11.9 Plan: * Treatment: Value Reference Range V alue 210 2.?Others? Refill Atorvastatin Calcium Tablet, 40 MG, TAKE 1 TABLET BY MOUTH EVERY DAY, Orally, Once a day, 90days, 90, Refills 3.?? * Procedure Codes: 8 2947 ASSAY, GLUCOSE, BLOOD QUANT, Modifiers: QW G0439 ANNUAL WELLNESS VST; PPS SUBSQT VST * Preventive Medicine: Counseling: C are goal follow-up plan: C ounseling for abnormal BMI provided?Yes, A freod Normal BMI Follow-up D ietary management education, guidance, and counseling, Dietary needs education, Giving encouragement to exercise. E xercise . C ommunication to patient: Trisha alexandernseling for nutrition provided Y es, Trisha ounseling for physical activity provided Y es. S ocial: d iet: D iscussed the importance of eating a nutritious healthy food on a regular basis, e xercise: D iscussed the benefits of any exercise for overall health and well-being, a lcohol and drugs: D iscussed the dangers of excessive alcohol intake. SCREENING: C olonoscopy N ext screening is scheduled. M ammogram A nnual Mammogram recommended pt will self schedule. COPD Care Plan: P atient Lifestyle Goals R elieve symptoms and improve quality of life, Reduce number of ED and hospitalizations . T reatment Goals t todd medicine exactly as precribed and plan for RX refills. S elf-Managment Plan E at a healthy diet. CHF Care Plan: P atient Lifestyle Goals R elieve symptoms and improve quality of life, Reduce number of ED and hospitalizations for CHF. T reatment Goals T todd medicine exactly as directed and plan for RX refills, Start low salt, DASH diet, Weigh yourself every day to see if you are retaining fluid. Call office if + or - 5lbs from previous day. Immunizations: I nfluenza H ave you had a flu shot since the most recent April 08? N o refuses flu shot for the season. C ovid p atient has not vaccinated yet, patient encouraged to get vaccinated. Screening/Special Tests: C olonoscopy . M ammogram . * Follow Up: 1 Year (Reason: AWV) * * Sign off status: Completed true * Provider: Damion Haddad MD Date: 0 09/28/2024 Generated for Xena purdy/Adina/Marysmitting on: 1 10/03/2024 11:55 AM EST History and Physical Notes * HPI (History of Present Illness) Category Sub-Category Detail Notes Category Not es Symptom(s) patient is a 74 yo male here for 6 month follow up visit and review of DM Depression Screening PHQ-9 Little inte rest or pleasure in doing things: Nearly every day Feeling down, depressed, or hopeless: No t at all Trouble falling or staying asleep, or sl eeping too much: Not at all Feeling tired or having little energy: N early every day Poor appetite or overeating: Nearly ever y day Feeling bad about yourself o r that you are a failure, or have let yourself or your family down: Not at all Trouble concentrating on thi ngs, such as reading the newspaper or watching television: Not at all Moving or speaking so slowly that other people could have noticed; or the opposite, being so fidgety or restless that you have been moving around a lot more than usual: Not at all Thoughts that you would be b frances off or of hurting yourself in some way: Not at all Total Score: 9 Interpretation: Mild Depression Interpretation and Intervention Depression Hayden connor Findings: Negative Follow-Up for Depression: : review of PH Q-9 found negative result, no follow-up needed SDOH Questions SDOH Questions In the past year have you been worried about losing housing?: No In the past year have you or any family members you live with been unable to get any of the following when it was really needed? Check all that apply:: None Fall Risk History Have you had two or more falls in th e past year?: No Have you had any falls with injury in th e past year?: No Annual Wellness Visit of Annual Wellness Vis it , Annual Wellness Visit HRA filled out by the patient, reviewed by Provider and scanned. HRA filled out by the patient, reviewed by Provider and scanned. Medical / Social History Reviewed The fo llowing items were reviewed and updated during today's visit: Past Medical History, [place] of Care, Surgical/Hospitalization History, Current medications including OTC and supplements, Family History, Tobacco use, Alcohol use, Illicit drug use Home Safety Throw rugs?: No Grab bars?: Yes In bathroom and by e xteriror door Raised toilet seats?: Yes Seat with Rail s is installed at home Working smoke detectors?: Yes Working carbon monoxide detectors?: Yes Activities of Daily Living (ADLs) Difficulty bathing or showering?: Yes independently but has become more difficult Difficulty dressing?: Yes can still perf orm dressing independantly Difficulty using the toilet?: No Difficulty getting in and out of bed?: N o Difficulty walking?: Yes moderate diffic ulty, using walker outside of house and at night Receives help from another p adrián with any of the above: Yes Has help from family members End-of-Life Planning End of Life Planning: Not n eeded Answers for HPI/ROS submitted by the patient Floresita lenz in Weight: No Change in hearing: No Examination Category Sub-Category Detail Notes Category Not es General Examination GENERAL APPEARANCE: alert, w ell hydrated, in no distress EYES: extraocular movement full and smooth HEART: no murmurs, rubs, ga llops LUNGS: no wheezes, rales, r honchi, good air movement, clear to auscultation bilaterally SKIN: good turgor AWV Balance Romberg: Yes . Tandem walk: Yes . Walk and Turn: Yes . Rise from sit to stand: Yes . Hearing Whisper test: Pass . EKG Not clinically mary ellen flannery Written plan Completed
--- OUTSIDE RECORDS SUMMARY | 2024-09-28 08:53 | XMS_ITS ---
Author Organization Mahad Haddad MD Address [address] [place] [phone] Support Name Relationship Address Phone Boo Mahad Caregiver 10 [facility] [address] [place] [address] [phone] Maldonado Mota Caregiver 10 [facility] [address] [place] [address] [phone] NoraAnderscris Caregiver 10 [facility] [address] [place] [address] [phone] MARSHA COOLEY Caregiver 10 [facility] [address] [place] [address] [phone] Candido Rodriguez Caregiver 10 [facility] [address] [place] [address] [phone] KIKI POLANCO Caregiver [address] [facility] [address] [place] [address] [phone] Erik Vaz Caregiver [address] [facility] [address] [place] [address] [phone] Jennifer Ji Caregiver 10 [facility] ve [address] [place] [address] [phone] KRISTINA CARTER Emergency Contact [address] [place] [address] RACHAEL CARTER Guarantor Unknown [phone] Care Team Providers Care General Partner Name Role Phone Mahad Haddad Primary Care Provider REASON FOR VISIT last note Encounters Encounter Location Date Provider Diagnosis Mahad Haddad MD [address] [place] [address] [phone] 09/28/2024 Mahad Haddad Plan Of Treatment Next Appt Details Provider Name:Mahad de la paz, 08/30/2025 07:30:00 AM, [address] [facility] [address], [address], [place], [place], [phone], Provider Name:Mahad Jang shaileshr, 09/05/2025 09:00:00 AM, [address] [facility] [address], [address], [place], [place], [phone], Provider Name:Mahad Jang shaileshr, 10/03/2025 11:00:00 AM, [address] [facility] [address], [address], [place], [phone], Provider Name:Mahad Leivarose cashr, 02/27/2026 07:45:00 AM, [address] [place] [address], [address], [place], [phone], Provider Name:Mahad Jang shaileshr, 03/06/2026 09:30:00 AM, [address] [place] [address], [address], [place], [phone], Progress Notes * RACHAEL CARTERDOB:[birth year] (74 yo M)Acc No.[id number]:09/28/2024 Patient: wGen BLISS RACHAEL :1950 A ge:74 Y S ex:Male Address:[place], [address] * true * Date: Generated for Xena purdy/Adina/eTwilmersmitting on: 10/03/2024 11:55 AM EST
--- OUTSIDE RECORDS SUMMARY | 2024-11-02 14:43 | XMS_ITS ---
Author Organization Mahad Haddad MD Address [address] [place] [phone] Support Name Relationship Address Phone Boo Mahad Caregiver [address] [facility] [address] [place] [address] [phone] Maldonado Mota Caregiver [address] [facility] [address] [place] [address] [phone] NoraAnderscris Caregiver [address] [facility] [address] [place] [address] [phone] MARSHA COOLEY Caregiver [address] [facility] [address] [place] [address] [phone] Candido Rodriguez Caregiver [address] [facility] [address] [place] [address] [phone] KIKI POLANCO Caregiver [address] [facility] [address] [place] [address] [phone] Erik Vaz Caregiver [address] [facility] [address] [place], [place] [phone] Jennifer Ji [facility]giver [facility] [address] [place] [address] [phone] KRISTINA CARTER Emergency Contact [address] [place] [address] RACHAEL CARTER Guarantor Unknown Care Team Providers Care Wind Projects Supervisor Name Role Phone Mahad Haddad Primary Care Provider [phone] REASON FOR VISIT ER Encounters Encounter Location Date Provider Diagnosis Mahad Haddad MD [address] [facility] [address] [place], [place] [phone] 11/02/2024 Mahad Haddad Plan Of Treatment Next Appt Details Provider Name:Mahad de la paz, 08/30/2025 07:30:00 AM, [address], [address], [place], [place], [phone], Provider Name:Mahad Jang shaileshr, 09/05/2025 09:00:00 AM, [address] [facility], [address], [place], [place], [phone], Provider Name:Mahad Jang ier, 10/03/2025 11:00:00 AM, [address] [facility], [address], [place], [phone], Provider Name:Mahad Jang shaileshr, 02/27/2026 07:45:00 AM, [address] [place] [address], [address], [place], [phone], Provider Name:Mahad Jang shaileshr, 03/06/2026 09:30:00 AM, [address] [place] [address], [address], [place], [phone], Progress Notes * RACHAEL CARTERDOB:[birth year] (74 yo M)Acc No.[id number]:11/02/2024 Patient: Gwen BLISS RACHAEL :1950 A ge:74 Y S ex:Male Address:[place], [address] * true * Date: Generated for Xena purdy/Adina/eTwilmersmitting on: 10/03/2024 11:53 AM EST
--- OUTSIDE RECORDS SUMMARY | 2024-11-10 03:55 | XMS_ITS ---
Author Organization [facility] Address [address] [place] [phone] Care Team Providers Care Composite Bond Technician Name Role Phone Boo SIMS, Mahad Primary Care Provider Juancarlos Cohen [phone] REASON FOR VISIT hx colon ca,screening,hx polyps Encounters Encounter Location Date Provider Diagnosis [facility] [address] [place] [phone] 11/10/2024 Juancarlos Sher Plan Of Treatment No Information Progress Notes * RACHAEL AGUSTINDOB: (75 yo M)Acc No.[id number]:11/10/2024 COLON WITH MAC Patient: Gwen PENARACHAEL HUANG Provider: William Sher MD :1950 A ge:74 Y S ex:Male Date:11/10/2024 Address:[address], [id number] Pcp:Mahad Haddad MD Subjective: * Chief Complaints: * H x colon ca,screening,hx polyps * The named appointment provid er may or may not be the originator of this progress note, and it is not deemed complete until electronically signed by the appointment provider. Sign off status: Pending * Provider: William Sher MD Date: 0 11/10/2024 Generated for Abdelrahmani ng/Faaprilg/eTransmitting on: 1 10/03/2024 11:53 AM EST
--- OUTSIDE RECORDS SUMMARY | 2024-12-18 04:31 | XMS_ITS ---
Author Organization Mahad Haddad MD Address [address] [place] [phone] Care Team Providers Care Radiologic Technologist Name Role Phone Mahad Haddad Primary Care Provider [phone] REASON FOR VISIT refill Medications Medication SIG (Take, Route, Frequency, Duration) Notes Start Date End Date Status Atorvastatin Calcium 40 MG TAKE 1 TABLET BY MOUTH EVERY DAY Orally Once a day for 90 days Active metFORMIN HCl 500 MG TAKE 1 TABLET BY MO UT TWICE A DAY WITH MEALS Orally Once a day for 90 days Active Encounters Encounter Location Date Provider Diagnosis Mahad Haddad MD [address] [place] [address] [phone] 12/18/2024 Mahad Haddad Type 2 diabetes mellitus without complication E11.9 Assessments Encounter Date Diagnosis (ICD Code) Assessment Notes Treatment Notes Treatment Clinical Notes Section Notes 12/18/2024 Type 2 diabetes mellitus without complication (ICD-10 - E11.9) Plan Of Treatment Medication Medication Name Sig Start Date Stop Date Notes Atorvastatin Calcium 40 MG TAKE 1 TABLET BY MOUTH EVERY DAY Orally Once a day for 90 days metFORMIN HCl 500 MG TAKE 1 TABLET BY [place] UT TWICE A DAY WITH MEALS Orally Once a day for 90 days Next Appt Details Provider Name:Mahad de la paz, 08/30/2025 07:30:00 AM, [address] [place] [address], [address], [phone], Provider Name:Mahad de la paz, 09/05/2025 09:00:00 AM, [address] [place] [address], [phone], Provider Name:Mahad de la paz, 10/03/2025 11:00:00 AM, [address] [place] [address], [address], [phone], Provider Name:Mahad de la paz, 02/27/2026 07:45:00 AM, [address] [place] [address], [phone], Provider Name:Mahad de la paz, 03/06/2026 09:30:00 AM, [address] [place] [address], [phone], Progress Notes * RACHAEL CARTERDOB:[birth year] (74 yo M)Acc No.[id number]:12/18/2024 Patient: RACHAEL KONG :1950 A ge:74 Y S ex:Male Address: [place], [address] * Refills Refill Atorvastatin Calcium Tablet, 40 MG, Orally, 90, TAKE 1 TABLET BY MOUTH EVERY DAY, Once a day, 90 days, Refills=3 Refill metFORMIN HCl Tablet, 500 MG, Orally, 180, TAKE 1 TABLET BY MOUTH TWICE A DAY WITH MEALS, Once a day, 90 days, Refills=3 * true * Date: Generated for Xena purdy/Adina/Aide on: 10/03/2024 11:54 AM EST
--- OUTSIDE RECORDS SUMMARY | 2024-12-27 06:44 | XMS_ITS ---
Author Organization Mahad Haddad MD Address [address] [place] [phone] Support Name Relationship Address Phone Abbiejose alfredoRocíon Caregiver [facility] [address] [facility] [address] [place] [address] [phone] Maldonado Mota Caregiver [facility] [address] [place] [address] [phone] NoraAnderscris Caregiver [facility] [address] [place] [address] [phone] MARSHA COOLEY Caregiver [facility] [address] [place] [address] [phone] Candido Rodriguez Caregiver [facility] [address] [place] [address] [phone] KIKI POLANCO Caregiver [address] [place] [address] [phone] Erik Vaz Caregiver [address] [facility] [address] [place], [place] [phone] Jennifer Ji Caregiver [facility] [address] [place] [address] [phone] KRISTINA CARTER Emergency Contact 8 [place] [address] RACHAEL CARTER Guarantor Unknown [phone] Care Team Providers Care Employee Benefits Director Name Role Phone Mahad Haddad Primary Care Provider REASON FOR VISIT Carotid US due . Encounters Encounter Location Date Provider Diagnosis Mahad Haddad MD [address] [place], [place] [phone] 12/27/2024 Mahad Haddad Plan Of Treatment Next Appt Details Provider Name:Mahad Jang ier, 08/30/2025 07:30:00 AM, [address], [address], [place], [phone], Provider Name:Mahad Jang shaileshr, 09/05/2025 09:00:00 AM, [address] [facility] [address], [address], [place], [place], [phone], Provider Name:Mahad Jang ier, 10/03/2025 11:00:00 AM, [address] [facility], [address], [place], [phone], Provider Name:Mahad Jang ier, 02/27/2026 07:45:00 AM, [address] [facility], [address], [place], [phone], Provider Name:Mahad Jang shaileshr, 03/06/2026 09:30:00 AM, [address] [place] [address], [address], [place], [phone], Progress Notes * RACHAEL CARTERDOB:[birth year] (74 yo M)Acc No.[id number]:12/27/2024 Patient: Gwen JOCELYNNSASHA RACHAEL :1950 A ge:74 Y S ex:Male Address: [place], [address] * true * Date: Generated for Xena purdy/Adina/eTransmitting on: 10/03/2024 11:55 AM EST
--- OUTSIDE RECORDS SUMMARY | 2025-02-26 02:45 | XMS_ITS ---
Author Organization Mahad Haddad MD Address [address] [place] [phone] Care Team Providers Care Software Test And Validation Engineer Name Role Phone Mahad Haddad Primary Care Provider [phone] REASON FOR VISIT yearly fasting labs Encounters Encounter Location Date Provider Diagnosis Mahad Haddad MD [address] [place] [phone] 02/26/2025 Mahad Haddad Blood tests for rout ine general physical examination Z00.00 ; Essential hypertension I10 ; Type 2 diabetes mellitus without complication E11.9 ; Prostatism N40.0 and Pure hypercholesterolemia E78.00 Assessments Encounter Date Diagnosis (ICD Code) Assessment Notes Treatment Notes Treatment Clinical Notes Section Notes 02/26/2025 Blood tests for rout ine general physical examination (ICD-10 - Z00.00) 02/26/2025 Essential hypertensi on (ICD-10 - I10) 02/26/2025 Type 2 diabetes margi itus without complication (ICD-10 - E11.9) 02/26/2025 Prostatism (ICD-10 - N40.0) 02/26/2025 Pure hypercholesterolemia (ICD-10 - E78.00) Plan Of Treatment Pending Test Test Name Order Date Complete Blood Count Auto Diff Comprehensive [place]. Panel Fast Lipid Panel 02/26/2025 PSA,Total (Free>4and<10) 02/26/2025 Microalbumin, Random 02/26/2025 Hemoglobin A1c 02/26/2025 UA ClnCatch+Micro w/rflx Cult 02/26/2025 Next Appt Details Provider Name:Mahad de la paz, 08/30/2025 07:30:00 AM, [address] [place] [address], [address] [place] [address], [phone], Provider Name:Mahad de la paz, 09/05/2025 09:00:00 AM, [address] [place] [address], [address], [phone], Provider Name:Mahad de la paz, 10/03/2025 11:00:00 AM, [address] [place] [address], [address], [phone], Provider Name:Mahad de la paz, 02/27/2026 07:45:00 AM, [address] [place] [address], [address], [phone], Provider Name:Mahad de la paz, 03/06/2026 09:30:00 AM, [address] [place] [address], [address], [phone], Progress Notes * CHARLY CARTER:[birth year] (75 yo M)Acc No.[id number]:02/26/2025 Progress Note Patient: RACHAEL KONG Provider: Damion Haddad MD :1950 A ge:74 Y S ex:Male Date:02/26/2025 Address: [address], [id number] Subjective: * Chief Complaints: * 1 . Yearly fasting labs. * Medical History: Objective: * Vitals: Assessment: * Assessment: 1. B lood tests for routine general physical examination - Z00.00 (Primary) 2 .?Essential hypertension - I10 3 . T ype 2 diabetes mellitus without complication - E11.9 4 . P rostatism - N40.0 5 . P ure hypercholesterolemia - E78.00 Plan: * Treatment: 2. E ssential hypertension L AB: Complete Blood Count Auto Diff L AB: Comprehensive [place]. Panel Fast L AB: Lipid Panel L AB: PSA,Total (Free>4and<10) L AB: Microalbumin, Random L AB: Hemoglobin A1c L AB: UA ClnCatch+Micro w/rflx Cult 3. T ype 2 diabetes mellitus without complication L AB: Complete Blood Count Auto Diff L AB: Comprehensive [place]. Panel Fast L AB: Lipid Panel L AB: PSA,Total (Free>4and<10) L AB: Microalbumin, Random L AB: Hemoglobin A1c L AB: UA ClnCatch+Micro w/rflx Cult 4. P rostatism L AB: Complete Blood Count Auto Diff L AB: Comprehensive [place]. Panel Fast L AB: Lipid Panel L AB: PSA,Total (Free>4and<10) L AB: Microalbumin, Random L AB: Hemoglobin A1c L AB: UA ClnCatch+Micro w/rflx Cult 5. P ure hypercholesterolemia L AB: Complete Blood Count Auto Diff L AB: Comprehensive [place]. Panel Fast L AB: Lipid Panel L AB: PSA,Total (Free>4and<10) L AB: Microalbumin, Random L AB: Hemoglobin A1c L AB: UA ClnCatch+Micro w/rflx Cult * Procedure Codes: 3 6415 VENIPUNCT, ROUTINE* * * The named appointment provid er may or may not be the originator of this progress note, and it is not deemed complete until electronically signed by the appointment provider. Sign off status: Pending * Provider: Damion Haddad MD Date: 0 02/26/2025 Generated for Xena purdy/Adina/Aide on: 1 10/03/2024 11:53 AM EST
--- OUTSIDE RECORDS SUMMARY | 2025-03-05 04:30 | XMS_ITS ---
Author Organization Mahad Haddad MD Address [address] [place] [phone] Care Team Providers Care Supervisor Education Name Role Phone Mahad Haddad Primary Care Provider Allergies No Known Allergies REASON FOR VISIT annual visit Medications Medication SIG (Take, Route, Frequency, Duration) Notes Start Date End Date Status hydroCHLOROthiazide 25 MG TAKE 1 TABLET BY MOUTH EVERY DAY IN THE MORNING FOR 30 DAYS Active Atorvastatin Calcium 40 MG TAKE 1 TABLET BY MOUTH EVERY DAY Orally Once a day Active metFORMIN HCl 500 MG TAKE 1 TABLET BY MOUTH TWICE A DAY WITH MEALS Active Lantus SoloStar 100 UNIT/ML INJECT 20 UN ITS SUBCUTANEOUSLY EVERY DAY DIRECTED 75 Active Losartan Potassium 100 MG 1 tablet Orall y Once a day 10/10/2020 Active Omeprazole 20 MG 1 capsule 30 minutes before morning meal Orally Once a day Active Pioglitazone HCl 15 MG 1 tablet Orally O nce a day Active Finasteride 5 MG 1 tablet Orally Once a day Active Tamsulosin HCl 0.4 MG 1 capsule 30 minut es after the same meal each day Orally Once a day Active Carvedilol 6.25 MG 1 tablet with food Orally Twice a day Active Hyoscyamine Sulfate 0.125 MG 1 tablet as needed Orally twice a day for 90 days 10/16/2018 Not-Taking Zofran 4 MG 1 tablet Orally TID prn Not-Taking Fioricet 50-300-40 MG 1-2 capsule as nee ded Orally every 6 hours prn Not-Taking Cefdinir 300 MG 1 capsule Orally every 12 hrs for 7 days Not-Taking Acarbose 50 MG as directed Orally Not-Taking OneTouch Verio - TESTBLOOD SUGAR 3 TIMES A DAY for 90 Active Aspir-81 81 MG 1 tablet Orally Once a day for 30 day(s) Not-Taking Cyclobenzaprine HCl 10 MG 1 tablet at be dtime as needed Orally Once a day for 30 day(s) Not-Taking Ibuprofen 800 MG 1 tablet with food o r milk as needed Orally Three times a day Not-Taking Wellbutrin XL 150 MG 1 tablet in the morning Orally Once a day 10/10/2020 Active hydrALAZINE HCl 100 MG 1 tablet Orally t hree times daily Active Dicyclomine HCl 10 MG 2 capsules Orally Three times a day for 30 day(s) Active Suboxone 2-0.5 MG 1 film under the tongue and allow to dissolve Sublingual Once a day Active Pen Ten Sleep 33G X 4 MM as directed sq tw ice a day for 30 days 10/27/2023 Active Meclizine HCl 25 MG 1 tablet as needed Orally every 12 hrs for 30 days Active Social History Tobacco Use: Social History [...] Problem Status W/U Status Risk Notes Problem Dysphagia ([id number]) Dysphagia (R13.10) Active confirmed Vital Signs Blood pressure systolic 152 mm Hg 03/05/20 25 Blood pressure diastolic 68 mm Hg 025 Height 68 in 03/05/2025 Weight 216 lbs 03/05/2025 BMI 32.84 kg/m2 03/05/2025 Encounters Encounter Location Date Provider Diagnosis Mahad Haddad MD [address] [place] [address] Drive [address] [place] [phone] 03/05/2025 Mahad Haddad Annual physical exam Z00.00 ; Skin lesion L98.9 ; Back pain, unspecified back location, unspecified back pain laterality, unspecified chronicity M54.9 ; Essential hypertension I10 ; Type 2 diabetes mellitus without complication E11.9 ; Dysphagia R13.10 ; Pure hypercholesterolemia E78.00 ; Prostatism N40.0 ; Colon cancer screening Z12.11 and Depression screening Z13.31 Assessments Encounter Date Diagnosis (ICD Code) Assessment Notes Treatment Notes Treatment Clinical Notes Section Notes 03/05/2025 Annual physical exam (ICD-10 - Z00.00) labs reviewed and discussed with patient 03/05/2025 Skin lesion (ICD-10 - L98.9) appear s to be a adama ker will check again at next visit 03/05/2025 Back pain, unspecifi ed back location, unspecified back pain laterality, unspecified chronicity (ICD-10 - M54.9) doing better, will continue to monitor 03/05/2025 Essential hypertensi on (ICD-10 - I10) well controlled, will continue current regiment 03/05/2025 Type 2 diabetes margi itus without complication (ICD-10 - E11.9) not doing as well as before will follow, will continue current regimnt and will continue to monitor 03/05/2025 Dysphagia (ICD-10 - R13.10) will be booked at [facility] , will continue current regiment 03/05/2025 Pure hypercholesterolemia (ICD-10 - E78.00) stable, will continue curent regiment 03/05/2025 Prostatism (ICD-10 - N40.0) will continue to monitor 03/05/2025 Colon cancer screeni ng (ICD-10 - Z12.11) guaiac negative 03/05/2025 Depression screening (ICD-10 - Z13.31) negative screen Plan Of Treatment Medication Medication Name Sig Start Date Stop Date Notes hydroCHLOROthiazide 25 MG TAKE 1 TABLET BY MOUTH EVERY DAY IN THE MORNING FOR 30 DAYS Atorvastatin Calcium 40 MG TAKE 1 TABLET BY MOUTH EVERY DAY Orally Once a day metFORMIN HCl 500 MG TAKE 1 TABLET BY MO UTH TWICE A DAY WITH MEALS Lantus SoloStar 100 UNIT/ML INJECT 20 UN ITS SUBCUTANEOUSLY EVERY DAY DIRECTED 75 Losartan Potassium 100 MG 1 tablet Orally Once a day 10/10 Omeprazole 20 MG 1 capsule 30 minutes before morning meal Orally Once a day Pioglitazone HCl 15 MG 1 tablet Orally Once a day Finasteride 5 MG 1 tablet Orally Once a day Tamsulosin HCl 0.4 MG 1 capsule 30 minut es after the same meal each day Orally Once a day Carvedilol 6.25 MG 1 tablet with food O rally Twice a day Treatment Notes Assessment Notes Annual physical exam labs reviewed and d iscussed with patient Skin lesion appear s to be a adama ker will check again at next visit Back pain, unspecified back location, unspecified back pain laterality, unspecified chronicity doing better, will continue to monitor Essential hypertension well controlled, will continue current regiment Type 2 diabetes mellitus without complic ation not doing as well as before will follow, will continue current regimnt and will continue to monitor Dysphagia will be booked at [facility] , will continue current regiment Pure hypercholesterolemia stable, will c ontinue curent regiment Prostatism will continue to mon itor Colon cancer screening guaiac negative Depression screening negative screen Pending Test Test Name Order Date XR GI SERIES 03/05/2025 Next Appt Details Follow Up: 6 Weeks, Reason: Provider Name:Mahad de la paz, 08/30/2025 07:30:00 AM, [address] [place] [address], [address], [place], [place], [phone], Provider Name:Mahad de la paz, 09/05/2025 09:00:00 AM, [address] [place] [address], [address], [place], [place], [phone], Provider Name:Mahad de la paz, 10/03/2025 11:00:00 AM, [address] [facility], [address], [place], [place], [phone], Provider Name:Mahad Jang ana cristina, 02/27/2026 07:45:00 AM, [address] [facility], [address], [place], [phone], Provider Name:Mahad Jang ana cristina, 03/06/2026 09:30:00 AM, [address] [facility], [address], [place], [phone], Progress Notes * RACHAEL CARTERDOB:[birth year] (74 yo M)Acc No.[id number]:03/05/2025 Progress Notes Patient: RACHAEL KONG Provider: Damion Haddad MD :1950 A ge:74 Y S ex:Male Date:03/05/2025 [facility] [id number] Subjective: * Chief Complaints: * A nnual visit * HPI: D epression Screening: PHQ-9 L ittle interest or pleasure in doing things N ot at all, F eeling down, depressed, or hopeless N ot at all, T rouble falling or staying asleep, or sleeping too much N ot at all, F eeling tired or having little energy N ot at all, P oor appetite or overeating N ot at all, F eeling bad about yourself or that you are a failure, or have let yourself or your family down N ot at all, T rouble concentrating on things, such as reading the newspaper or watching television N ot at all, M oving or speaking so slowly that other people could have noticed; or the opposite, being so fidgety or restless that you have been moving around a lot more than usual N ot at all, T houghts that you would be better off or of hurting yourself in some way N ot at all, T otal Score 0 . I nterpretation and Intervention D epression Screening Findings N egative, F ollow-Up for Depression : review of PHQ-9 found negative result, no follow-up needed. C ommunication Needs: Communication Needs D oes the patient have a hearing impairment N o, D oes the patient have a vision impairment? Y es, I f yes, what is the vision impairment? G lasses, D oes the patient have a cognition impairment? N o. F all Risk: History H ave you had any falls with injury in the past year? N o, H ave you had two or more falls in the past year? N o. S JIMMY Questions: SDOH Questions I n the past year have you been worried about losing housing? N o, I n the past year have you or any family members you live with been unable to get any of the following when it was really needed? Check all that apply: N one. S ymptom(s): patientis a 74 yo male here for annual visit with review of recent labs and follow up of chronic issues. h as a stimulator for back pain is better.. has trouble with food getting stuck when swallowing. * ROS: G eneral/Constitutional: Change in appetite d enies. C hills d enies. F ever d enies. O phthalmologic: Blurred vision d enies. D ischarge d enies. P ain d enies. E NT: Decreased hearing d enies. S ore throat d enies.?Swollen glands d enies. E ndocrine: Cold intolerance d enies. E xcessive thirst d enies. H eat intolerance d enies. W eight loss d enies. R espiratory: Cough d enies. S hortness of breath at rest d enies. S hortness of breath with exertion d enies. W heezing d enies. C ardiovascular: Chest pain at rest d enies. C hest pain with exertion?denies. I rregular heartbeat d enies. S hortness of breath d enies. ? G astrointestinal: Abdominal pain d enies. C hange in bowel habits d enies. D iarrhea d enies. N ausea d enies. R ectal bleeding d enies. V omiting d enies . G enitourinary: Blood in urine d enies. D ifficulty urinating d enies. F requent urination d enies. M usculoskeletal: Painful joints d enies. W eakness d enies. ? S kin: Dry skin d enies. I tching d enies. D enies?Mole(s), changes in moles, new moles or any lesions of concern. D enies P hotosensitivity. R ludwin d enies. N eurologic: Dizziness d enies. F ainting d enies. H eadache?denies. * Medical History: * Surgical History: * [...] Tablet 1 tablet Orally three times daily Pioglitazone HCl 15 MG Tablet 1 tablet Orally Once a day Pen Ten Sleep 33G X 4 MM Miscellaneous as directed [...] DAY IN THE MORNING FOR 30 DAYS Atorvastatin Calcium 40 MG Tablet TAKE 1 TABLET BY MOUTH EVERY DAY Orally Once a day metFORMIN HCl 500 MG Tablet TAKE 1 TABLET BY MOUTH TWICE A DAY WITH MEALS OneTouch Verio - Strip TESTBLOOD SUGAR 3 TIMES A DAY Lantus SoloStar 100 UNIT/ML Solution Pen-injector INJECT 20 UNITS SUBCUTANEOUSLY EVERY DAY DIRECTED 75 Taking Meclizine HCl 25 MG Tablet Chewable [...] 1 tablet Orally three times daily Taking Pioglitazone HCl 15 MG Tablet 1 tablet Orally Once a day Taking Pen Ten Sleep 33G X 4 MM Miscellaneous as directed [...] IN THE MORNING FOR 30 DAYS Taking Atorvastatin Calcium 40 MG Tablet TAKE 1 TABLET BY MOUTH EVERY DAY Orally Once a day Taking metFORMIN HCl 500 MG Tablet TAKE 1 TABLET BY MOUTH TWICE A DAY WITH MEALS Taking OneTouch Verio - Strip TESTBLOOD SUGAR 3 TIMES A DAY Taking Lantus SoloStar 100 UNIT/ML Solution Pen-injector INJECT 20 UNITS SUBCUTANEOUSLY EVERY DAY DIRECTED 75 Not-Taking/PRNAspir-81 81 MG Tablet Delayed Release 1 [...] Capsule 1 capsule Orally every 12 hrs Not-Taking/PRN Aspir-81 81 MG Tablet Delayed Release 1 [...] Capsule 1 capsule Orally every 12 hrs DiscontinuedAcarbose 50 MG Tablet as directed Orally tid Medication List reviewed and reconciled with the patientDiscontinued Acarbose 50 MG Tablet as directed Orally tid Medication List reviewed and reconciled with the patient * Allergies: N .K.D.A.yes[Allergies Verified] Objective: * Vitals: H t: 68, Wt: 216, BMI:32.84, BP:152/68, Repeat BP:130/60, Wt-k.98. * P ast Orders: L ab:Hemoglobin A1c (Order Date - 02/26/2025) (Collection Date & Time - 02/26/2025 07:45 AM) Value Reference Range Hemoglobin A1c % 8.3 H <6.0 - % Estimated Average Glucose 192 - mg/dL L ab:Complete Blood Count Auto Diff (Order Date - 02/26/2025) (Collection Date & Time - 02/26/2025 07:45 AM) Value Reference Range White Blood Count 9.1 4.8-10.8 - X10*3/uL Red Blood Count 4.31 L 4.60-5.80 - X10*6/uL Hemoglobin 11.8 L 14.0-18.0 - g/dl Hematocrit 36.3 L 42.0-52.0 - % Mean Corpuscular Volume 84.2 80.0-98.0 - fL Mean Corpuscular Hemoglobin 27.4 27.0-33.0 - pg Mean Corpuscular HGB Conc 32.5 31.0-36.0 - g/ dl Red Cell Distribution Width 14.7 11.0-16.0 - % Platelet Count 256 160-400 - X10*3/uL Mean Platelet Volume 11.1 9.4-12.4 - fL Neutrophils Percent Auto 75.1 H 45-73 - % Imm Gran Pct Auto 0.3 0.0-0.4 - % Lymphocytes Percent Auto 16.4 L 20-40 - % Monocytes Percent Auto 5.9 2-11 - % Eosinophils Percent Auto 1.8 0-4 - % Basophils Percent Auto 0.5 0-2 - % NRBC Pct Auto 0.0 0.0-0.2 - /100WBC Neutrophils Absolute Auto 6.8 2.0-8.3 - x10* 3/uL Imm Gran Abs Auto 0.03 0.00-0.03 - X10*3/uL Lymphocytes Absolute Auto 1.5 1.2-4.9 - X10* 3/uL Monocytes Absolute Auto 0.5 0.1-1.2 - X10*3/ uL Eosinophils Absolute Auto 0.2 0.0-0.4 - X10* 3/uL Basophils Absolute Auto 0.1 0.0-0.2 - X10*3/ uL NRBC Abs Auto 0.000 0.0-0.012 - X10*3/uL L ab:UA ClnCatch+Micro w/rflx Cult (Order Date - 02/26/2025) (Collection Date & Time - 02/26/2025 07:45 AM) Value Reference Range Color Urine Yellow - Appearance Urine Clear - PH 8.5 5.0-9.0 - Glucose Urine UA Negative Negative - mg/dL Urine Blood Negative Negative - Specific [place] - Urine 1.015 1.005-1.025 - Urine Protein Negative Neg-Trace - mg/dL Urine Ketones Negative Negative - mg/dL Nitrite Urine Negative Negative - Leukocyte Esterase Urine Negative Negative - RBC Urine 0-2 0-2 - /HPF WBC Urine 0-5 0-5 - /HPF Squamous Epithelial Cell Urine 0-2 0-2 - /HP F Bacteria Urine None Seen None Seen - Hyaline Casts Urine 0-2 0-2 - /LPF L ab:Comprehensive [place]. Panel Fast (Order Date - 02/26/2025) (Collection Date & Time - 02/26/2025 07:45 AM) Value Reference Range Sodium 140 135-145 - mmol/L Bilirubin Total 0.4 0.0-1.0 - mg/dL Aspartate Amino Transferase 30 5-37 - U/L Alanine Aminotransferase 33 0-40 - U/L Total Protein 6.8 6.5-8.0 - g/dL Albumin Level 4.1 3.5-5.0 - g/dL Alkaline Phosphatase 80 39-117 - U/L Potassium 4.1 3.3-5.1 - mmol/L Chloride 105 96-108 - mmol/L Carbon Dioxide 29 22-29 - mmol/L Anion Gap 10 L 12-20 - Blood Urea Nitrogen 8 L 9-16 - mg/dL Creatinine 0.74 0.5-1.4 - mg/dL Estimated Glomerular Filt Rate > 60 - Glucose Fasting 135 H 60-99 - mg/dL Calcium 8.9 8.4-10.2 - mg/dL L ab:Lipid Panel (Order Date - 02/26/2025) (Collection Date & Time - 02/26/2025 07:45 AM) Value Reference Range Triglycerides 50 <150 - mg/dL Cholesterol 122 <200 - mg/dL LDL Cholesterol Calculated 49 <100 - mg/dL HDL Cholesterol 63 >40 - mg/dL L ab:PSA,Total (Free>4and<10) (Order Date - 02/26/2025) (Collection Date & Time - 02/26/2025 07:45 AM) Value Reference Range PSA,Total (Free>4and<10) 1.97 0.00-4.00 - ng/ mL L ab:Microalbumin, Random (Order Date - 02/26/2025) (Collection Date & Time - 02/26/2025 07:45 AM) Value Reference Range Creatinine Urine 90.01 - mg/dL Microalbumin Urine 11.0 - mg/L Microalbum Creatinine Ratio Ur 12.2 <30 - ug/ mg cr * Examination: G eneral Examination: GENERAL APPEARANCE: w ell developed, well nourished, in no acute distress. HEAD: n ormocephalic, atraumatic. EYES: p upils equal, round, reactive to light and accommodation, sclera non-icteric. EARS: n ormal. ORAL CAVITY: m ucosa moist. THROAT: c lear. NECK/THYROID: n vinnie supple, full range of motion, no cervical lymphadenopathy, no bruits. SKIN: w arm and dry, no suspicious lesions, abnormal rt arm with lesion consistant with adama ker and on rt lai a 1/4 inch lesion appears to be a adama ker and has been there a long time. HEART: r egular rate and rhythm, S1, S2 normal, no murmurs.? LUNGS: c lear to auscultation bilaterally. ABDOMEN: s oft, nontender, nondistended, bowel sounds present, normal, no organomegaly , no masses palpable. RECTAL EXAM: n ormal tone, no external hemorrhoids, no masses palpable, prostate normal, stool guaiac negative. MALE GENITOURINARY: u ncircumcised, no testicular mass, testes descended bilaterally. EXTREMITIES: n o clubbing, cyanosis, or edema. NEUROLOGIC: n onfocal, motor strength normal upper and lower extremities, sensory exam intact. Assessment: * Assessment: 1. A nnual physical exam - Z00.00 (Primary) 2 . S kin lesion - L98.9 ? 3 . B ack pain, unspecified back location, unspecified back pain laterality, unspecified chronicity - M54.9 4 . E ssential hypertension - I10 5 . T ype 2 diabetes mellitus without complication - E11.9 6 . D ysphagia - R13.10? 7. P ure hypercholesterolemia - E78.00 8 . P rostatism - N40.0 9 . C olon cancer screening - Z12.11 1 0. D epression screening - Z13.31 Plan: * Treatment: 2. S kin lesion Notes: appear s to be a adama ker will check again at next visit 3. B ack pain, unspecified back location, unspecified back pain laterality, unspecified chronicity Notes: doing better, will continue to monitor 4. E ssential hypertension Continue Carvedilol Tablet, 6.25 MG, 1 tablet with food, Orally, Twice a day; C ontinue Losartan Potassium Tablet, 100 MG, 1 tablet, Orally, Once a day; C ontinue hydroCHLOROthiazide Tablet, 25 MG, TAKE 1 TABLET BY MOUTH EVERY DAY IN THE MORNING FOR 30 DAYS. Notes: well controlled, will continue current regiment 5. T ype 2 diabetes mellitus without complication Continue Pioglitazone HCl Tablet, 15 MG, 1 tablet, Orally, Once a day; C ontinue metFORMIN HCl Tablet, 500 MG, TAKE 1 TABLET BY MOUTH TWICE A DAY WITH MEALS; C ontinue Lantus SoloStar Solution Pen-injector, 100 UNIT/ML, INJECT 20 UNITS SUBCUTANEOUSLY EVERY DAY DIRECTED 75. Notes: not doing as well as before will follow, will continue current regimnt and will continue to monitor 6. D ysphagia Continue Omeprazole Capsule Delayed Release, 20 MG, 1 capsule 30 minutes before morning meal, Orally, Once a day. I maging: XR GI SERIES Notes: will be booked at [facility] , will continue current regiment 7. P ure hypercholesterolemia Continue Atorvastatin Calcium Tablet, 40 MG, TAKE 1 TABLET BY MOUTH EVERY DAY, Orally, Once a day.? Notes: stable, will continue curent regiment 8. P rostatism Continue Finasteride Tablet, 5 MG, 1 tablet, Orally, Once a day; C ontinue Tamsulosin HCl Capsule Extended Release 24 Hour, 0.4 MG, 1 capsule 30 minutes after the same meal each day, Orally, Once a day. Notes: will continue to monitor 9. C olon cancer screening Notes: guaiac negative 10. D epression screening Notes: negative screen * Procedure Codes: * Preventive Medicine: Diabetes Care Plan: P atient Lifestyle Goals N eeds to maintain diet control.?Treatment Goals A 1C< 7. B arriers N eeds better diet control. S elf-Managment Plan I ncrease light exercise to 3 times a week for 30 minutes. E xpected Outcome m aintaining stable blood sugar levels within a target range. * Follow Up: 6 Weeks * * Sign off status: Completed true * Provider: Damion Haddad MD Date: 0 03/05/2025 Generated for Xena purdy/Adina/Wesleyitting on: 10/03/2024 11:53 AM EST History and Physical Notes * HPI (History of Present Illness) Category Sub-Category Detail Notes Category Not es Symptom(s) patientis a 74 yo male here for annual visit with review of recent labs and follow up of chronic issues. has a stimulator for back pain is better.. has trouble with food getting stuck when swallowing Depression Screening PHQ-9 Little inte rest or pleasure in doing things: Not at all Feeling down, depressed, or hopeless: No t at all Trouble falling or staying asleep, or sl eeping too much: Not at all Feeling tired or having little energy: N ot at all Poor appetite or overeating: Not at all Feeling bad about yourself o r that [...] some way: Not at all Total Score: 0 Interpretation and Intervention Depression Hayden connor Findings: [...] None Fall Risk History Have you had any falls with injury i n the past year?: No Have you had two or more falls in the st year?: No Communication Needs Communication Needs Does the patient have a hearing impairment: No Does the patient have a vision impairmen t?: Yes If yes, what is the vision impairment?: Glasses Does the patient have a cognition impair ment?: No Examination Category Sub-Category Detail Notes Category Not es General Examination GENERAL APPEARANCE: well dev eloped, well nourished, in no acute distress HEAD: normocephalic, atrau matic EYES: pupils equal, round, reactive to light and accommodation, sclera non-icteric EARS: normal THROAT: clear NECK/THYROID: neck supple, full ra nge of motion, no cervical lymphadenopathy, no bruits HEART: regular rate and rhy thm, S1, S2 normal, no murmurs LUNGS: clear to auscultatio n bilaterally ABDOMEN: soft, nontender, non distended, bowel sounds present, normal, no organomegaly , no masses palpable NEUROLOGIC: nonfocal, motor stre ngth normal upper and lower extremities, sensory exam intact SKIN: warm and dry, no oliva picious lesions, abnormal rt arm with lesion consistant with adama ker and on rt lai a 1/4 inch lesion appears to be a adama ker and has been there a long time EXTREMITIES: no clubbing, cyanosi s, or edema MALE GENITOURINARY: uncircumcised, no te sticular mass, testes descended bilaterally RECTAL EXAM: normal tone, no exte rnal hemorrhoids, no masses palpable, prostate normal, stool guaiac negative ORAL CAVITY: mucosa moist
--- OUTSIDE RECORDS SUMMARY | 2025-03-26 06:30 | XMS_ITS ---
Author Organization Mahad Haddad MD Address [address] [place] [address] [phone] Care Team Providers Care Cutting And Printing Machine Operator Name Role Phone Mahad Haddad Primary [...] ins referral needs to go under Shirin Quezdaa [phone] Referral Priority Routine Referral Appointment Date 06/28/2025 [...] Orally t hree times daily Active Pen [place] 33G X 4 MM as directed sq [...] Location Date Provider Diagnosis Mahad Haddad MD [address] [place] [address] [phone] 03/26/2025 Mahad Haddad Dysphagia R13.10 Assessments Encounter [...] Name:Mahad de la paz, 08/30/2025 07:30:00 AM, [address] [place] [address], [address], [phone], Provider Name:Mahad de la paz, 09/05/2025 09:00:00 AM, [address] [place] [address], [phone], Provider Name:Mahad de la paz, 10/03/2025 11:00:00 AM, [address] [place] [address], [phone], Provider Name:Mahad de la paz, 02/27/2026 07:45:00 AM, [address] [place] [address], [phone], Provider Name:Mahad de la paz, 03/06/2026 09:30:00 AM, [address] [place] [address], [phone], Progress Notes * RACHAEL CARTERDOB:[birth year] (74 yo M)Acc No.[id number]:03/26/2025 Progress Notes Patient: RACHAEL KONG Provider: Damion Haddad MD :1950 A ge:74 Y S ex:Male Date:03/26/2025 Address: [address], [id number] Subjective: * Chief Complaints: * D ISCUSS LAB WORK and Upper GI in patient docsAccompanied by son * HPI: S ymptom(s): patient is a 74 yo male here to discuss recent lab work/ has been feeling tired. had xrays on throat at [facility]. * ROS: G eneral/Constitutional: Denies C hills. [...] 1 tablet Orally three times daily Pen [place] 33G X 4 MM Miscellaneous as directed [...] tablet Orally three times daily Taking Pen [place] 33G X 4 MM Miscellaneous as directed sq twice a day Taking Wellbutrin XL 150 MG Tablet Extended Release 24 Hour 1 tablet in the morning Orally Once a day Taking OnePixowluch Verio - Strip TESTBLOOD SUGAR 3 TIMES [...] 0 03/26/2025 Generated for Xena purdy/Adina/Aide on: 10/03/2024 11:54 AM EST History and Physical Notes * HPI (History of Present Illness) Category Sub-Category Detail Notes Category Not es Symptom(s) patient is a 74 yo male here to discuss recent lab work/ has been feeling tired. had xrays on throat at [facility] Examination Category Sub-Category Detail Notes Category Not [...]
--- OUTSIDE RECORDS SUMMARY | 2025-06-03 03:30 | XMS_ITS ---
Author Organization Mahad Haddad MD Address [address] [place] [phone] Care Team Providers Care Customer Advisor Name Role Phone Mahad Haddad Primary Care Provider [phone] REASON FOR VISIT FBS and A1C for surgeon Dr Mota Encounters Encounter Location Date Provider Diagnosis Mahad Haddad MD [address] [place] [phone] 06/03/2025 Mahad Haddad Type 2 diabetes mellitus without complication E11.9 Assessments Encounter Date Diagnosis (ICD Code) Assessment Notes Treatment Notes Treatment Clinical Notes Section Notes 06/03/2025 Type 2 diabetes mellitus without complication (ICD-10 - E11.9) Plan Of Treatment Next Appt Details Provider Name:Mahad de la paz, 08/30/2025 07:30:00 AM, [address], [address], [place], [place], [phone], Provider Name:Mahad de la paz, 09/05/2025 09:00:00 AM, [address], [address], [place], [place], [phone], Provider Name:Mahad cashr, 10/03/2025 11:00:00 AM, [address] [facility], Suite [facility], [place], [place], [phone], Provider Name:Mahad de la paz, 02/27/2026 07:45:00 AM, [address] [place] [address], Suite [facility], [place], [place], [phone], Provider Name:Mahad de la paz, 03/06/2026 09:30:00 AM, [address] [place] [address], Suite [facility], [place], [place], [phone], Progress Notes * RACHAEL CARTERDOB:[birth year] (75 yo M)Acc No.[id number]:06/03/2025 Progress Note Patient: RACHAEL KONG Provider: Damion Haddad MD :1950 A ge:74 Y S ex:Male Date:06/03/2025 Address: [address] [id number] Subjective: * Chief Complaints: * 1 . FBS and A1C for surgeon Dr Mota. * Medical History: Objective: * Vitals: Assessment: * Assessment: 1. T ype 2 diabetes mellitus without complication - E11.9 (Primary) Plan: * Treatment: * * The named appointment provid er may or may not be the originator of this progress note, and it is not deemed complete until electronically signed by the appointment provider. Sign off status: Pending * Provider: Damion Haddad MD Date: Generated for Xena purdy/Adina/Wesleyitting on: 10/03/2024 11:55 AM EST
--- OUTSIDE RECORDS SUMMARY | 2025-08-02 11:53 | XMS_ITS | Data Portability ---
Author Organization [place] - [facility], Allergy Address [address] [place] [phone] Care Team Providers Care Shipping Services Sales Representative Name Role Phone JANE JOHN Primary Care Provider [phone] Assessment No assessment recorded. Plan of Treatment Reminders Order Date Submit Date Provider Last Modified By Organization Details Last Modified Time Details Appointments None recorded. Lab None recorded. Referral None recorded. Procedures None recorded. Surgeries None recorded. Imaging [place], modified barium swallow study 2024 025 [email or web address] [facility], [address] [place] [address], [address], 5 09:29:10 Medication Orders None recorded. Patient TargetsNo targets recorded. Patient InstructionsNo instructions recorded. Reason for Referral None Reported. Problems Name Problem SNOMED Code Status Onset Date Resolution Date Notes Provider Name and Address Organization Details Recorded Time Oropharyngeal dysphagia 18112574 Active 2024 BRANDEE Thomas MD [address] [place] [address], [phone], [facility] - [facility] 5 13:33:51 Gastroesophage al reflux disease without esophagitis 052428084 Active 2024 BRANDEE Thomas MD [address] [place] [address], [phone], [facility] - [facility] 5 13:45:21 Problem Notes None recorded. Procedures Surgical History Date Name Laterality Status Provider Name and Address Organization Details Recorded Time 5 FFL_RE completed BRANDEE STEPHENSON MD [address] [place] [address], [place], [phone], [place] - [facility] [place] 06/28/2025 13:31:12 hernia repair completed Yonny Barry [place] - [facility] 06/28/2025 13:13:23 Imaging Results None recorded. Procedure Notes None recorded. Medical Equipment None Reported. Allergies No known drug allergies Medications Name Sig Start Date Stop Date Status Note LastModified by Organization Details LastModified Time losartan 50 mg tablet TAKE 1 TABLET BY MOUTH EVERY DAY 06/28 completed Not Available Not Available Not Available atorvastati n 40 mg tablet TAKE 1 TABLET BY MOUTH EVERY DAY FOR 90 DAYS 06/28 completed Not Available Not Available Not Available metformin 500 mg tablet TAKE 1 TABLET BY MOUTH TWICE A DAY WITH MEALS active Not Available Not Available No t Available carvedilol 6.25 mg tablet TAKE 1 TABLET ORALLY 2 TIMES A DAY FOR 90 DAYS MUST ADMINISTE R WITH A MEAL/FOOD 06/28 completed Not Available Not Available Not Available carvedilol 12.5 mg tablet TAKE 1 TABLET BY MOUTH TWICE A DAY WITH FOOD active Not Available Not Available No t Available sulfamethox azole 400 mg-trimetho prim 80 mg tablet TAKE 1 TABLET BY MOUTH EVERY DAY 06/28 completed Not Available Not Available Not Available ondansetron HCl 4 mg tablet TAKE 1 TABLET BY MOUTH EVERY 6 HOURS NEEDED FOR NAUSEA active Not Available Not Available No t Available hydralazine 100 mg tablet TAKE 1 TABLET ORALLY 3 TIMES A DAY active Not Available Not Available No t Available lidocaine 5 % topical patch APPLY 1 PATCH TOPICALLY DAILY LEAVE ON MOST PAINFUL AREA FOR UP TO 12 HRS 06/28 completed Not Available Not Available Not Available omeprazole 20 mg capsule,del ayed release TAKE 1 CAPSULE BY MOUTH TWICE A DAY FOR HEARBURN active Not Available Not Available No t Available hydrochloro thiazide 25 mg tablet TAKE 1 TABLET BY MOUTH EVERY DAY 06/28 completed Not Available Not Available Not Available finasteride 5 mg tablet TAKE 1 TABLET BY MOUTH EVERY DAY 06/28 completed Not Available Not Available Not Available buprenorphi ne 2 mg-naloxone 0.5 mg sublingual tablet TAKE 3 TABLETS SUBLINGUA LLY EVERY DAY active Not Available Not Available No t Available duloxetine 20 mg capsule,del ayed release TAKE 1 CAPSULE BY MOUTH EVERY DAY 06/28 completed Not Available Not Available Not Available Lantus Solostar U-100 Insulin 100 unit/mL (3 mL) subcutaneou s pen INJECT 20 UNITS SUBCUTANE OUSLY EVERY DAY DIRECTED active Not Available Not Available No t Available tranexamic acid 650 mg tablet TAKE 1 TABLET BY MOUTH EVERY DAY FOR 5 DAYS 06/28 completed Not Available Not Available Not Available OneTouch Verio test strips TESTBLOOD SUGAR 3 TIMES A DAY 90 active Not Available Not Available No t Available Theresa 2nd Gen Pen Needle 32 gauge x / USE TWICE A DAY DIRECTED active Not Available Not Available No t Available Vitals Date Recorded Body height Body mass index (BMI) Body weight Provider Name and Address Organization Details Last Updated DateTime 06/28/2025 170.18 cm 32.3 kg/m2 50882.03 g Yonny Barry [facility] 06/28/2025 13:11:17 Social History None recorded. Functional Status None recorded. Mental Status None recorded. Family History Nothing Reported. Medical History Condition Response Arthritis Y Anxiety Y Hypertension Y Depression Y Past Encounters Encounter ID Performer Location Encounter Start Date Encounter Closed Date Diagnosis/Indication Diagnosis SNOMED-CT Code Diagnosis ICD10 Code Diagnosis IMO Codes Diagnosis Note [id number] BRANDEE STEPHENSON MD [facility] on [address] [place] [phone] 06/28/2025 12:51:06 06/28/2025 14:07:15 Oropharyngeal dysphagia 19671772 R13.12 8208 Prior esophagram was normal. I recommend a modified barium swallow to better assess his swallowing . Laryngosco py was normal. I gave reassuranc e there are no structural lesions. Gastroesop hageal reflux disease without esophagitis 497039277 K21.9 395599 Continue omeprazole . See above. Health Concerns Section Related Observation LastModified by Organization Detai ls LastModified Time None Recorded Concern Status LastModified by Organization Details LastModified Time None Recorded Advance Directives Directive None Recorded Payers Insurance Date Sequence Insurance Name Policy Number Policy [place] Covered Member ID [place] Member ID Guarantor Name 07/02/2025 1 [facility] (MEDICARE REPLACEMENT/A DVANTAGE - HMO) Isaac Ruelas [id number] Isaac Rothle Notes Date Note Type Note Provider Name and Address Organization Details Recorded Time 06/28/2025 text/html ROS as noted in the HPI He has dysphagia to solids. He has to be careful. Medications also get stuck. He takes omeprazole BID for reflux. No problems swallowing liquids. Denies throat pain. Denies hoarseness. He had a double contrast upper GI study 03/2025 which showed GERD and was otherwise unremarkable. BRANDEE STEPHENSON MD [address] [place] [address], [phone], [facility] - [facility] 06/28/2025 13:46:32
--- OUTSIDE RECORDS SUMMARY | 2025-08-02 11:53 | XMS_ITS | Continuity of Care Document ---
Author Organization [place] - [facility], [facility] Address [address] [place] [address] Care Team Providers Care Manager Athletics Name Role Phone JANE JOHN Primary Care Provider [phone] Assessment No assessment recorded. Plan of Treatment Reminders Order Date Submit Date Provider Last Modified By Organization Details Last Modified Time Details Appointments None recorded. Lab None recorded. Referral None recorded. Procedures None recorded. Surgeries None recorded. Imaging [place], modified barium swallow study 2024 025 [email or web address] [facility], [address] [place], [address], 5 09:29:10 Medication Orders None recorded. Patient TargetsNo targets recorded. Patient InstructionsNo instructions recorded. Reason for Referral None Reported. Problems Name Problem SNOMED Code Status Onset Date Resolution Date Notes Provider Name and Address Organization Details Recorded Time Oropharyngeal dysphagia 97364301 Active 2024 BRANDEE Thomas MD [address] [place] [address], [place], [phone], [facility] 5 13:33:51 Gastroesophage al reflux disease without esophagitis 334691691 Active 2024 BRANDEE Thomas MD [address] [place] [address], [place], [phone], [facility] - [facility] 5 13:45:21 Problem Notes None recorded. Procedures Surgical History Date Name Laterality Status Provider Name and Address Organization Details Recorded Time 5 FFL_RE completed BRANDEE STEPHENSON MD [address] [facility],[place] [address], [place], [phone], [place] - [facility] [place] 06/28/2025 13:31:12 hernia repair completed Yonny Barry [place] - [facility] 06/28/2025 13:13:23 Imaging Results None recorded. Procedure [...] Updated DateTime 06/28/2025 170.18 cm 32.3 kg/m2 36546.03 g Yonny Barry [place] - [facility] 06/28/2025 13:11:17 Social History None recorded. Functional Status None recorded. Mental Status None recorded. Family History Nothing Reported. Medical History Condition Response Arthritis Y Anxiety Y Hypertension Y Depression Y Past Encounters Encounter ID Performer Location Encounter Start Date Encounter Closed Date Diagnosis/Indication Diagnosis SNOMED-CT Code Diagnosis ICD10 Code Diagnosis IMO Codes Diagnosis Note [id number] BRANDEE STEPHENSON MD [facility] on [address] [place] [address] 06/28/2025 12:51:06 06/28/2025 14:07:15 Oropharyngeal dysphagia 82603610 R13.12 8208 Prior esophagram was normal. I recommend a modified barium swallow to better assess his swallowing . Laryngosco py was normal. I gave reassuranc e there are no structural lesions. Gastroesop hageal reflux disease without esophagitis 992848766 K21.9 652782 Continue omeprazole . See above. Health Concerns Section Related Observation LastModified by Organization Detai ls LastModified Time None Recorded Concern Status LastModified by Organization Details LastModified Time None Recorded Payers Encounter Date Sequence Insurance Name Policy Number Policy [place] Covered Member ID [place] Member ID Guarantor Name 06/28/2025 1 [facility] (MEDICARE REPLACEMENT/A DVANTAGE - HMO) Isaac Ruelas [id number] Isaac Givens Notes Date Note Type Note Provider Name [...] and was otherwise unremarkable. BRANDEE STEPHENSON MD [address] [place] [address], [phone] - [facility] 06/28/2025 13:46:32
--- OUTSIDE RECORDS SUMMARY | 2025-08-02 11:53 | XMS_ITS | Clinical Summary ---
Author Organization [facility] Address [address] [place] [address] [facility] [address] Phone Care Team Providers Care Quality Review Specialist Name Role Phone Mahad Haddad MD Primary [...] patient's age to complete this topic Insurance [id number] Medicare [facility] Medicare Care Teams Quality Review Specialist Relationship Specialty Start Date End Date Mahad Haddad MD [id number] [place] PCP - General 08/18/20
--- OUTSIDE RECORDS SUMMARY | 2025-08-02 11:54 | XMS_ITS | Patient Health Record ---
Author Organization [facility], [facility] Address [address] [place] [address] Care Team Providers Care Project Administrative Assistant Name Role Phone Mahad Haddad MD Primary Care Provider Juancarlos Cohen [phone] Allergies No Known Allergies Results Component Value Reference Range Flag Notes Pathology (Not yet reviewed by provider) Interpretation: Performing Lab:[facility], [address] [place] [phone] Notes/Report: Glucose, Whole Blood Reviewed date:09/14/2024 02:25:32 PM Interpretation: Performing Lab:[facility], [address] [place] [phone] Notes/Report: Glucose, Whole Blood 138 60-115 mg/dL H [facility] #: [id number] Reason For Referral No Information Medications Medication SIG (Take, Route, Frequency, Duration) Notes Start Date End Date Status Acarbose 50 MG Tablet TAKE 1 TABLET BY M OUTH THREE TIMES A DAY Oral; Duration: 30 Active Dicyclomine HCl 10 MG Capsule 1 or 2 capsules Orally Every 6 hours as needed for abdominal bloating, cramps, discomfort; Duration: 30 day(s) 01/24/2024 Active Metoprolol Succinate ER 100 MG Tablet Extended Release 24 Hour TAKE 1 TABLET BY MOUTH EVERY DAY AT NIGHT Oral; Duration: 30 Active hydrALAZINE HCl 50 MG Tablet TAKE 1 and 1/2 TABLET BY MOUTH 3 TIMES A DAY Oral Three times a day Active Omeprazole 20 MG Capsule Delayed Release TAKE 1 CAPSULE BY MOUTH TWICE A DAY FOR HEARBURN 90; Duration: 90 Active Buprenorphine HCl-Naloxone HCl 2-0.5 MG Film Sublingual; Duration: 19 Active Losartan Potassium 100 MG Tablet Oral; Duration: 30 Active Celecoxib 200 MG Capsule Oral; Duration: 30 Active buPROPion HCl ER (XL) 150 MG Tablet Extended Release 24 Hour TAKE 1 TABLET BY MOUTH EVERY DAY IN THE MORNING Oral; Duration: 30 Active Pioglitazone HCl 15 MG Tablet Oral; Duration: 30 Active Lantus SoloStar 100 UNIT/ML Solution Pen-injector Subcutaneous; Duration: 90 Active Aspir-81 81mg Active Tamsulosin HCl 0.4 MG Capsule TAKE 1 CAPSULE BY MOUTH TWICE A DAY Oral; Duration: 90 Active metFORMIN HCl 1000mg Active Finasteride 5 MG Tablet Oral; Duration: 90 Active glipiZIDE 5 MG Tablet TAKE 1 TABLET EVER Y DAY Oral; Duration: 30 Active Atorvastatin Calcium 40 MG Tablet TAKE 1 TABLET BY MOUTH EVERY DAY Oral; Duration: 90 Active Immunizations Vaccine Route Administration Date Status Comme nts Influenza Unknown 04/14/2021 Refused Influenza Unknown 01/24/2024 Refused Social History Social History Additional Details Category Social Info Options Details Miscellaneous: Marital status: Occupation: retired Section Notes: Nonsmoker; no sig. alcohol Nonsmoker; no sig. alcohol Nonsmoker; no sig. alcohol Nonsmoker; no sig. alcohol Nonsmoker; no sig. alcohol Nonsmoker; no sig. alcohol Problems Problem Type SNOMED Code ICD Code Onset Dates Problem Status W/U Status Risk Notes Problem Screening for malignant neoplasm of colon (860414979) Encounter for screening for malignant neoplasm of colon (Z12.11) Active confirmed Problem History of adenomatous polyp of colon (234463799) History of adenomatous polyp of colon (Z86.010) Active confirmed Problem Abdominal bloating (412622273) Abdominal bloating (R14.0) Active confirmed Problem Diverticular disease of colon (735571810) Diverticulosis of large intestine without perforation or abscess without bleeding (K57.30) Active confirmed Problem History of malignant neoplasm of colon (112815045) Personal history of other malignant neoplasm of large intestine (Z85.038) Active confirmed Problem History of gastrointestinal tract bypass (069370155) Intestinal bypass and anastomosis status (Z98.0) Active confirmed Problem Gastroesophageal reflux disease with esophagitis (355832706) Gastroesophageal reflux disease with esophagitis (K21.0) Active confirmed Problem History of malignant neoplasm of colon (370775616) History of colon cancer (Z85.038) Active confirmed Problem Diverticulosis of colon (281901263) Diverticulosis of colon (K57.30) Active confirmed Problem Gastroesophageal reflux disease with esophagitis (disorder) (296953165) Gastroesophageal reflux disease with esophagitis without hemorrhage (K21.00) Active confirmed Encounters Encounter Location Date Provider Diagnosis [facility] [place] [place] Outpatient [address] [place] [id number] 09/14/2024 Juancarlos Sher Colon cancer scree geeta [...] Insured Coverage Start Date Coverage End Date [facility] [address] [address] [place] [address] [id number] RACHAEL AGUSTIN Self - patient is the [...] in 2006 Internal hemorrhoids IDDM HTN Denies NV,CVA,Lung disease,renal disease EGD in 04/2011 with erosive esophagitis a nd HH-no Linn's esophagus Hyperlipidemia Colonoscopy in 05/2018 with removal of a tubular adenoma SBO in 02/2020 treated with NG tube--no s urgery Kidney stones Colonoscopy May 2021 Romero ited prep and one small polyp removed but not recovered for pathology Surgical History Surgery Date(Month/Year) Right colectomy for colon cancer as per [facility] Right inguinal hernia 2022-Dr. Schulz Stimulator put in back
--- OUTSIDE RECORDS SUMMARY | 2025-08-02 11:55 | XMS_ITS | Patient Health Record ---
Author Organization Mahad Haddad MD Address [address] [place] [phone] Care Team Providers Care Clipman Name Role Phone Mahad Haddad Primary Care Provider Allergies No Known Allergies Results Component Value Reference Range Notes Glucose, finger stick Reviewed date:09/28/2024 10:01:27 AM Interpretation: Performing Lab: Notes/Report: Value 210 Glucose, Whole Blood Reviewed date:09/14/2024 12:30:34 PM Interpretation: Performing Lab:[facility], [address] [place] [address] Notes/Report: Glucose, Whole Blood 138 60-115 mg/dL METER # : [id number] Pathology Reviewed date:09/18/2024 12:42:22 PM Interpretation: Performing Lab:[facility], [address] [place] [address] Notes/Report: ---- Name: Rachael Sanon Age/Sex: 74/M : 1950 Unit#: [id number] Attend Dr: Juancarlos Jacobs MD Re09/14/24 Status : [facility] Location: [facility] Disch: ---- SPEC : [id number] RECD: 09/14/24 STATUS: TANI KAUFMAN NUM: [id number] KEYSHAWN: 09/14/24-[address] [facility] [address]: Juancarlos Jacobs MD ENTERED: 09/14/24-10 [...] in 3 parts. A. Received in forma Zamzee labeled ?distal transverse colon polyp? are fragments of henriquez-white soft tissue measurin g 0.1-0.4 cm in greatest dimension, forming an aggregate measuring 0.8 x 0.6 x 0.2 cm which i s wrapped in lens paper and entirely submitted for microscopic examination, multipl e pieces in cassette A. B. Received in forma Zamzee labeled ?polyp near anastomosis? are 4 fragments of pink white soft tissue measuring 0.2 -0.5 cm in greatest dimension which are wrapped in lens paper and entirely submitted f or microscopic examination, 4 pieces in cassette B. C. Received in forma Zamzee labeled ?proximal transverse colon polyp? are 2 [...] Rachael Sanon Age/Sex: 74/M : 1950 Unit#: [id number] Attend Dr: Juancarlos Jacobs MD Re09/14/24 Status : [facility] Location: [facility] Disch: ---- SPEC : [id number] RECD: 09/14/24 STATUS: TANI KAUFMAN NUM: [id number] KEYSHAWN: 09/14/240942 [facility] DR: Juancarlos Jacobs MD ENTERED: 09/14/24-10 [...] microscopic examination, 4 pieces in cassette C2. [facility] Copies To: Mahad Haddad MD [facility] [address] [place] [address] [address] [place] [address] Juancarlos Jacobs MD [address] [place] [address] ---- Signed (signature on file) Leora Holguin 09/17/24 1235 ---- END OF REPORT Daniel Reyes date:09/25/2024 04:53:21 PM Interpretation: Performing Lab:[facility], [address] [place] [phone] Notes/Report: Hold Gold See Note Specimen held untested for 24 hours; Call to request Chemistry testing. Hemoglobin A1c Reviewed date:09/25/2024 04:53:31 PM Interpretation: Performing Lab:[address] [address] Notes/Report: Hemoglobin A1c % 7.7 <6.0 % [...] average glucose, using the formula of the G6N-Dyaewyh Average Glucose study (ADAG), Diabetes Care, Vol.31,#8, 2007 Electrolytes Reviewed date:10/19/2024 12:22:07 PM Interpretation: Performing Lab:[facility], [address] [place] [address] Notes/Report: Sodium 138 135-145 mmol/L Potassium 4.1 3.3-5.1 mmol/L Chloride 104 96-108 mmol/L Carbon Dioxide 27 22-29 mmol/L Anion Gap 11 12-20 Blood Urea Nitrogen Reviewed date:10/19/2024 12:22:27 PM Interpretation: Performing Lab:[facility], [address] [place] [address] Notes/Report: Blood Urea Nitrogen 12 9-16 mg/dL Creatinine Reviewed date:10/19/2024 05:10:52 PM Interpretation: Performing Lab:[facility], [address] [place] [address] Notes/Report: Creatinine 0.84 0.5-1.4 mg/dL Estimated Glomerular Filt Rate > 60 Chronic Kidney Disease: Estimated GFR < 60 mL/min/1.73m2 Severe Kidney Disease: Estimated GFR < 15 mL/min/1.73m2 Calcium Reviewed date:10/19/2024 05:11:00 PM Interpretation: Performing Lab:[address] [address] Notes/Report: Calcium 9.2 8.4-10.2 mg/dL Protein Creatinine Ratio, Ur Reviewed date:10/19/2024 05:11:12 PM Interpretation: Performing Lab:[facility], [address] [place] [address] Notes/Report: Creatinine Urine 224.81 Total Protein Urine Random 16 <12 mg/dL Protein/Creatinine Ratio, Ur 0.07 <0.2 The spot urine protein:creatinine ratio may increase to 0.3 during normal . Complete Blood Count Auto Di ff Reviewed date:11/03/2024 09:30:06 AM Interpretation: Performing Lab:[facility], [address] [place] [phone] Notes/Report: White Blood Count 7.7 4.8-10.8 X10*3/uL [...] Panel Reviewed date:11/03/2024 09:28:51 AM Interpretation: Performing Lab:[facility], [address] [place] [address] Notes/Report: Sodium 137 135-145 mmol/L Potassium 4.3 [...] Magnesium Reviewed date:11/02/2024 08:49:02 PM Interpretation: Performing Lab:[facility], [address] [place] [address] Notes/Report: Magnesium 1.7 1.6-2.6 mg/dL Troponin-I High Sensitivity Reviewed date:11/02/2024 09:11:17 PM Interpretation: Performing Lab:[facility], [address] [place] [address] Notes/Report: Troponin-I High Sensitivity < 2.7 <3.5-35.0 ng/L The [place] high sensitivity Troponin-I results should be used in conjunction with other diagnostic information such as ECG, clinical observations and information, and patient symptoms to aid in the diagnosis of DE. Lipase Reviewed date:11/02/2024 08:49:52 PM Interpretation: Performing Lab:[facility], [address] [place] [address] Notes/Report: Lipase 15 8-78 U/L UA ClnCatch+Micro w/rflx Cul t Reviewed date:11/03/2024 09:29:07 AM Interpretation: Performing Lab:[facility], [address] [place] [address] Notes/Report: [id number] Urine, Clean Catch Color Urine Yellow Appearance Urine Clear PH 5.5 5.0-9.0 Glucose Urine UA >=1000 Negative mg/dL Urine Blood Negative Negative Specific [place] - Urine >= 1.030 1.005-1.025 Urine Protein Negative Neg-Trace mg/dL Urine Ketones Negative Negative mg/dL Nitrite Urine Negative Negative Leukocyte Esterase Urine Negative Negative XR KUB Reviewed date:11/02/2024 09:10:21 PM Interpretation: Performing Lab: Notes/Report: [address] [address] XRay Report Signed Patient: Rachael Sanon MR#: M [id number] : 1950 Acct:[id number] Age/Sex: 74 / M ADM Date: 11/02/24 Loc: .ED Attending Dr: Ordering Physician: Landy Rutledge CNP Date of Service: 11/02/24 Procedure(s): XR KUB Accession Number(s): [id number] cc: Landy Rutledge CNP; Mahad Haddad MD [...] 11/02/24 1115 DD/ 1027 TD/TT: 11/02/24 1055 Bottom Buffer: [address] [address] XRay Report Signed Patient: Rachael Sanon MR#: M [id number] : 1950 Acct:[id number] Age/Sex: 74 / M ADM Date: 11/02/24 Loc: HO.ED Attending Dr: Ordering Physician: Landy Rutledge CNP Date of Service: 11/02/24 Procedure(s): XR KUB Accession Number(s): [id number] cc: Landy Rutledge CNP; Mahad Haddad MD [...] 11/02/24 1115 DD/ 1027 TD/TT: 11/02/24 1055 Bottom Buffer: XR chest 2V Reviewed date:11/03/2024 09:28:31 AM Interpretation: Performing Lab: Notes/Report: [address] [address] XRay Report Signed Patient: Rachael Sanon MR#: M [id number] : 1950 Acct:[id number] Age/Sex: 74 / M ADM Date: 11/02/24 Loc: HO.ED Attending Dr: Ordering Physician: Landy Rutledge CNP Date of Service: 11/02/24 Procedure(s): XR chest 2V Accession Number(s): [id number] cc: Landy Rutledge CNP; Mahad Haddad MD [...] 11/02/24 1112 DD/ 1040 TD/TT: 11/02/24 1055 Bottom Buffer: [address] [address] XRay Report Signed Patient: Rachael Sanon MR#: M [id number] : 1950 Acct:[id number] Age/Sex: 74 / M ADM Date: 11/02/24 Loc: HO.ED Attending Dr: Ordering Physician: Landy Rutledge CNP Date of Service: 11/02/24 Procedure(s): XR teri st 2V Accession Number(s): [id number] cc: Landy Rutledge COUNSELING CASE MANAGER; Mahad Haddad MD EXAMINATION: XR CHEST CLINICAL [...] 11/02/24 1112 DD/ 1040 TD/TT: 11/02/24 1055 Bottom Buffer: ABHINAV ClnCatch+Micro w/rflx Cul t Reviewed date:11/03/2024 09:32:21 AM Interpretation: Performing Lab:[facility], [address] [place] [address] Notes/Report: [id number] 1036 Urine, Clean Catch Color Urine Yellow Appearance Urine Clear PH 5.5 5.0-9.0 Glucose Urine UA >=1000 Negative mg/dL Urine Blood Negative Negative Specific [place] - Urine >= 1.030 1.005-1.025 Urine Protein Negative Neg-Trace mg/dL Urine Ketones Negative Negative mg/dL Nitrite Urine Negative Negative Leukocyte Esterase Urine Negative Negative RBC Urine 0-2 0-2 /HPF WBC Urine 0-5 0-5 /HPF Squamous Epithelial Cell Urine 0-2 0-2 /HPF Bacteria Urine None Seen None Seen Hyaline Casts Urine 0-2 0-2 /LPF Glucose, Whole Blood Reviewed date:11/06/2024 12:20:28 PM Interpretation: Performing Lab:[facility], [address] [place] [address] Notes/Report: Glucose, Whole Blood 176 60-115 mg/dL METER # : [id number] Pathology Reviewed date:11/08/2024 10:59:39 AM Interpretation: Performing Lab:[facility], [address] [place] [address] Notes/Report: ---- Name: Rachael Sanon Age/Sex: 74/M : 1950 Unit#: [id number] Attend Dr: Rafita Garland MD Re11/05/24 Status : [facility] Location: [facility] Disch: ---- SPEC : [id number] RECD : 11/05/24 STATUS: TANI KAUFMAN NUM: [id number] KEYSHAWN: 11/05/24-110 [facility] DR: Rafita Garland MD ENTERED: 11/05/24-07 [...] ed intradepartmentally. Copies To: Rafita Garland MD [facility] [address] [facility] [address] [place] [address] Mahad Haddad MD [facility] [address] [place] [address] [address] [place] [address] ---- Signed (signature on file) Effie Newman MD 11/06/24 3455 ---- END OF REPORT US carotid duplex BI Reviewed date:02/14/2025 05:17:19 PM Interpretation: Performing Lab: Notes/Report: [address] [address] Ultrasound Report Signed Patient: Rachael Sanon MR#: M [id number] : 1950 Acct:[id number] Age/Sex: 74 / M ADM Date: 02/04/25 Loc: HO.US Attending Dr: Mahad Haddad MD Ordering Physician: Mahad Haddad MD Date of Service: 02/04/25 Procedure(s): US carotid duplex BI Accession Number(s): [id number] cc: Mahad Haddad MD EXAMINATION: US EXTRACRANIAL [...] 02/04/25 1554 DD/ 1524 TD/TT: 02/04/25 1536 Bottom Buffer: [place] [address] Ultrasound Report Signed Patient: Rachael Sanon MR#: M [id number] : 1950 Acct:[id number] Age/Sex: 74 / M ADM Date: 02/04/25 Loc: HO.US Attending Dr: Mahad Haddad MD Ordering Physician: Mahad Haddad MD Date of Service: 02/04/25 Procedure(s): US car otid duplex BI Accession Number(s): [id number] cc: Mahad Haddad MD EXAMINATION: US EXTRACRANIAL [...] 02/04/25 1554 DD/ 1524 TD/TT: 02/04/25 1536 Bottom Buffer: CT abdomen pelvis wo con Reviewed date:02/14/2025 04:17:53 PM Interpretation: Performing Lab: Notes/Report: [address] [address] [address] Scan Report Signed Patient: Rachael Sanon MR#: M [id number] : 1950 Acct:[id number] Age/Sex: 74 / M ADM Date: 02/12/25 Loc: HO.CT Attending Dr: Maldonado Mota MD Ordering Physician: Maldonado Mota MD Date of Service: 02/12/25 Procedure(s): CT abdomen pelvis wo IV con Accession Number(s): [id number] cc: Mahad Haddad MD; Maldonado Mota MD Report Number: [id number]: Total DLP = 594.00 mGy-cm EXAMINATION: CT [...] 02/12/25 1724 DD/ 1539 TD/TT: 02/12/25 1648 Bottom Buffer: [place] [address] CT Scan Report Signed Patient: Rachael Sanon MR#: M [id number] : 1950 Acct:[id number] Age/Sex: 74 / M ADM Date: 02/12/25 Loc: HO.CT Attending Dr: Maldonado Mota MD Ordering Physician: Maldonado Mota MD Date of Service: 02/12/25 Procedure(s): CT abd omen pelvis wo IV con Accession Number(s): [id number] cc: Mahad Haddad MD; Maldonado Mota MD Report Number: [id number]: Total DLP = 594.00 mGy-cm EXAMINATION: CT [...] 02/12/25 1724 DD/ 1539 TD/TT: 02/12/25 1648 Bottom Buffer: Complete Blood Count Auto Di ff Reviewed date:02/26/2025 02:51:23 PM Interpretation: Performing Lab:[facility], [address] [place] [address] Notes/Report: White Blood Count 9.1 4.8-10.8 X10*3/uL [...] NRBC Abs Auto 0.000 0.0-0.012 X10*3/uL Comprehensive [address] Flat. Panel Fa st Reviewed date:02/26/2025 02:50:00 PM Interpretation: Performing Lab:[facility], [address] [place] [address] Notes/Report: Sodium 140 135-145 mmol/L Potassium 4.1 [...] Panel Reviewed date:02/26/2025 02:46:02 PM Interpretation: Performing Lab:[facility], [address] [place] [address] Notes/Report: Triglycerides 50 <150 mg/dL Desirable Triglyceride: [...] Reviewed date:02/26/2025 05:00:42 PM Interpretation: Performing Lab:[address] [address] Notes/Report: PSA,Total (Free>4and<10) 1.97 0.00-4.00 ng/mL A [...] Random Reviewed date:02/26/2025 02:52:27 PM Interpretation: Performing Lab:[facility], [address] [place] [address] Notes/Report: Creatinine Urine 90.01 Microalbumin Urine 11.0 Microalbum/Creatinine Ratio Ur 12.2 <30 ug/mg cr Albumin/Creatinine Ratio Reference Ranges: Normal: < 30 ug/mg creatinine Microalbuminuria: 30 - 300 ug/mg creatinine Clinical Albuminuria: > 300 ug/mg creatinine Hemoglobin A1c Reviewed date:02/26/2025 05:00:57 PM Interpretation: Performing Lab:[address] [address] Notes/Report: Hemoglobin A1c % 8.3 <6.0 % [...] average glucose, using the formula of the E1J-Glsuvaw Average Glucose study (ADAG), Diabetes Care, Vol.31,#8, 2007 UA ClnCatch+Micro w/rflx Cul t Reviewed date:02/26/2025 02:54:43 PM Interpretation: Performing Lab:[facility], [address] [place] [address] Notes/Report: [id number] Urine, Clean Catch Color Urine Yellow Appearance Urine Clear PH 8.5 5.0-9.0 Glucose Urine UA Negative Negative mg/dL Urine Blood Negative Negative Specific [place] - Urine 1.015 1.005-1.025 Urine Protein Negative Neg-Trace mg/dL Urine Ketones Negative Negative mg/dL Nitrite Urine Negative Negative Leukocyte Esterase Urine Negative Negative RBC Urine 0-2 0-2 /HPF WBC Urine 0-5 0-5 /HPF Squamous Epithelial Cell Urine 0-2 0-2 /HPF Bacteria Urine None Seen None Seen Hyaline Casts Urine 0-2 0-2 /LPF Electrolytes Reviewed date:04/19/2025 12:34:46 PM Interpretation: Performing Lab:[facility], [address] [place] [address] Notes/Report: Sodium 139 135-145 mmol/L Potassium 4.0 3.3-5.1 mmol/L Chloride 103 96-108 mmol/L Carbon Dioxide 29 22-29 mmol/L Anion Gap 11 12-20 Blood Urea Nitrogen Reviewed date:04/21/2025 05:39:01 PM Interpretation: Performing Lab:[facility], [address] [place] [address] Notes/Report: Blood Urea Nitrogen 13 9-16 mg/dL Creatinine Reviewed date:04/19/2025 12:33:49 PM Interpretation: Performing Lab:[facility], [address] [place] [address] Notes/Report: Creatinine 0.87 0.5-1.4 mg/dL Estimated Glomerular Filt Rate > 60 Chronic Kidney Disease: Estimated GFR < 60 mL/min/1.73m2 Severe Kidney Disease: Estimated GFR < 15 mL/min/1.73m2 Calcium Reviewed date:04/19/2025 12:33:24 PM Interpretation: Performing Lab:[facility], [address] [place] [address] Notes/Report: Calcium 9.0 8.4-10.2 mg/dL Complete Blood Count no Diff Reviewed date:06/06/2025 07:22:57 PM Interpretation: Performing Lab:[facility], [address] [place] [address] Notes/Report: White Blood Count 7.5 4.8-10.8 X10*3/uL Red Blood Count 4.36 4.60-5.80 X10*6/uL Hemoglobin 11.7 14.0-18.0 g/dl Hematocrit 37.4 42.0-52.0 % Mean Corpuscular Volume 85.8 80.0-98.0 fL Mean Corpuscular Hemoglobin 26.8 27.0-33.0 pg Mean Corpuscular HGB Conc 31.3 31.0-36.0 g/dl Red Cell Distribution Width 14.0 11.0-16.0 % Platelet Count 252 160-400 X10*3/uL Mean Platelet Volume 10.8 9.4-12.4 fL NRBC Pct Auto 0.0 0.0-0.2 /100WBC NRBC Abs Auto 0.000 0.0-0.012 X10*3/uL Hemoglobin A1c Reviewed date:06/06/2025 07:18:49 PM Interpretation: Performing Lab:[facility], [address] [place] [address] Notes/Report: Hemoglobin A1c % 10.2 <6.0 % Hemoglobin A1C Reference Range Adults: 4.8 - 6.0 % Non diabetic: < 6.0 % Goal: < 7.0 % Additional Action Suggested: > 8.0 % Note: Hemoglobin A1c results are invalid for patients with abnormal amounts of HbF. Blood transfusions may impact the HbA1c concentration in the patient sample. Estimated Average Glucose 246 eAG = Estimated average glucose which is %A1C expressed as average glucose, using the formula of the O9K-Znfmguq Average Glucose study (ADAG), Diabetes Care, Vol.31,#8, Mar. 2007 Type and Screen Reviewed date:06/06/2025 07:18:36 PM Interpretation: Performing Lab:[facility], [address] [place] [address] Notes/Report: Spec expiration changed by MATEO on 06/06/25 Reason: PAT SSS WITNESSED BY MICHELLE NURSING: Call Blood Bank (ext. [phone]) to band patient on admission. Type and Screen in effect until 2300 on 06/13/25 06/13/25 Blood Type AP Antibody Screen NEGATIVE Reason For Referral Reason Dysphagia Diagnosis 1 [...] referral needs to go under Shirin Quezada [phone] Referral Priority Routine Referral Appointment Date 06/28/2025 Medications Medication SIG (Take, Route, Frequency, Duration) Notes Start Date End Date Status hydrALAZINE HCl 100 MG 1 tablet Orally t hree times daily Active Pen Forbes 33G X 4 MM as directed sq [...] Problem Status W/U Status Risk Notes Problem 89242717 Prostatism (N40.0) Active confirmed Problem Anxiety (25315485) Anxiety (F41.9) Active confirmed Problem Dysphagia (76712159) Dysphagia (R13.10) Active confirmed Problem 960926003 Diverticulitis (K57.92) Active confirmed Problem 29911389 Irritable bowel syndrome without diarrhea (K58.9) Active confirmed Problem 67997859 Lumbar disc dise ase (M51.9) Active confirmed Problem 96103340 Essential hypert ension (I10) Active confirmed Problem 62219037 Type 2 diabetes mellitus without complication (E11.9) Active confirmed Problem 05862311 Memory loss (R41.3) Active confirmed Problem 773755921 History of colon cancer (Z85.038) Active confirmed Problem Dysthymia (10400199) Dysthymia (F34.1) Active confirmed Problem 58216677 Heart burn (R12) Active confirmed Problem 766381470 Pure hypercholesterolemia (E78.00) Active confirmed Problem 998501374 Back pain, unspe cified back location, unspecified back pain laterality, unspecified chronicity (M54.9) Active confirmed Problem 178100192 BMI 32.0-32.9,ad ult (Z68.32) Active confirmed Problem Psychoactive substance dependence (6874565) Drug dependence (F19.20) Active confirmed Problem 941807051 SBO (small bowel obstruction) (K56.609) Active confirmed Problem 921412963 Dry eyes, bilate ral (H04.123) Active confirmed Vital Signs Blood pressure diastolic 80 mm Hg 03/26/2025 Height 68 in 03/26/2025 Blood pressure systolic 116 mm Hg 03/26/2025 Weight 216 lbs 03/26/2025 BMI 32.84 kg/m2 03/26/2025 Encounters Encounter Location Date Provider Diagnosis Mahad Haddad MD [address] [place] [id number] 09/21/2024 Mahad Haddad Type 2 diabetes margi itus without complication E11.9 and Pure hypercholesterolemia E78.00 Mahad Haddad MD [address] [place] [address] Drive [address] [place] [id number] 02/26/2025 Mahad Haddad Blood tests for rout ine general physical examination Z00.00 ; Essential hypertension I10 ; Type 2 diabetes mellitus without complication E11.9 ; Prostatism N40.0 and Pure hypercholesterolemia E78.00 Mahad Haddad MD [address] [place] [id number] 09/28/2024 Mahad Haddad Type 2 diabetes margi itus without complication E11.9 and Encounter for general adult medical examination without abnormal findings Z00.00 Mahad Haddad MD [address] [place] [id number] 03/05/2025 Mahad Haddad Annual physical exam Z00.00 ; Skin lesion L98.9 ; Back pain, unspecified back location, unspecified back pain laterality, unspecified chronicity M54.9 ; Essential hypertension I10 ; Type 2 diabetes mellitus without complication E11.9 ; Dysphagia R13.10 ; Pure hypercholesterolemia E78.00 ; Prostatism N40.0 ; Colon cancer screening Z12.11 and Depression screening Z13.31 Mahad Haddad MD [address] [place] [id number] 03/26/2025 Mahad Haddad Dysphagia R13.10 Mahad Haddad MD [address] [place] [id number] 09/28/2024 Mahad Haddad MD [address] [id number] 11/02/2024 Mahad Haddad MD [address] [id number] 12/18/2024 Mahad Haddad Type 2 diabetes margi itus without complication E11.9 Mahad Haddad MD [address] [place] [id number] 12/27/2024 Mahad Haddad Assessments Encounter Date Diagnosis [...] 03/05/2025 Complete Blood Count Auto Diff Comprehensive Rail [address] Flat. Panel Fast Liver Panel 09/21/2024 Glucose Fasting 09/21/2024 Lipid Panel 02/26/2025 Lipid Panel with Reflex 09/21/2024 PSA,Total (Free>4and<10) 02/26/2025 Microalbumin, Random 02/26/2025 CT abdomen pelvis wo/w con 10/13/2023 MR head/brain wo con 05/03/2024 XR KUB 10/11/2023 Hemoglobin A1c 02/26/2025 Hemoglobin A1c 09/21/2024 UA ClnCatch+Micro w/rflx Cult 02/26/2025 Future Test Test Name Order Date CAROTID BILATERAL DOPPLER 01/30/2025 Next Appt Details Provider Name:Mahad Jang ier, 08/30/2025 07:30:00 AM, [address] [place] [address], [address] [place] [address], [phone], Provider Name:Mahad Jang ier, 09/05/2025 09:00:00 AM, [address] [place] [address], [address] [place] [address], [phone], Provider Name:Mahad Jang ier, 10/03/2025 11:00:00 AM, [address] [place] [address], [address] [place] [address], [phone], Provider Name:Mahad Leivarose ier, 02/27/2026 07:45:00 AM, [address] [place] [address], [address], [phone], Provider Name:Mahadelif Jang ier, 03/06/2026 09:30:00 AM, [address] [place] [address], [address], [phone], Insurance Providers Payer Name Payer Address Payer Phone Subscriber Number Group Number Insured Name Patient Relationship to Insured Coverage Start Date Coverage End Date [facility] [employer] [address] [address] [place] [address] [id number] RACHAEL CARTER Self - patient is the insured [employer] [address] [place] [address] [id number] RACHAEL CARTER Self - patient is the [...]
--- OUTSIDE RECORDS SUMMARY | 2025-08-02 11:55 | XMS_ITS | Clinical Summary ---
Author Organization [facility] Address [address] [place] [address] Phone Care Team Providers Care Bridge Repairer Name Role Phone Mahad Haddad MD Primary Care Provider Social History Tobacco Use Types Packs/Day Years Used Date Smoking Tobacco: Never Assessed Sex and Gender Information Value Date Recorded Sex Assigned at Male 07/09/2025 10:19 AM EST Legal Sex Male 3:17 PM EST Gender Identity Male 07/09/2025 10:19 AM EST Sexual Orientation Straight 07/09/2025 10 :19 AM EST Plan of Treatment Upcoming Encounters Date Type Department Care Team (Late st Contact Info) Description 09/18/2025 9:30 AM EST Appointment [facility] Xray [address] [place] [address] Ramona Hammond, CCC-FREIGHT [employer] Health Maintenance Due Date Last Done Comments Colorectal Cancer Screening: Colonoscopy 1950 DTaP,Tdap,and Td Vaccines (1 - Tdap) 1971 Pneumococcal Vaccine: 50+ Ye ars (1 of 1 - PCV) 2002 Zoster Vaccines (1 of 2) 2002 Depression Screening 08/08/2024 COVID-19 Vaccine (1 - 2024-2 6 season) 2025 Influenza Vaccine (#1) 2025 Abdominal Aortic Aneurysm (A AA) Screen 07/09/2025 Cholesterol Screening (Lipid Panel) 07/09/2025 Falls Risk Assessment 07/09/2025 Hepatitis C Screening 07/09/2025 Social Influencers of Health Screening 07/09/2025 RSV Immunization Adult Patie nts (1 - 1-dose 75+ series) 2027 HIB Vaccines Aged Out No longer eligi ble based on patient's age to complete this topic HPV Vaccines Aged Out No longer eligi ble based on patient's age to complete this topic Hepatitis A Vaccines Aged Out No long er eligible based on patient's age to complete this topic Hepatitis B Vaccines Aged Out No long er eligible based on patient's age to complete this topic IPV Vaccines Aged Out No longer eligi ble based on patient's age to complete this topic MMR Vaccines Aged Out No longer eligi ble based on patient's age to complete this topic Meningococcal ACWY Vaccine Aged Out N o longer eligible based on patient's age to complete this topic Meningococcal B Vaccine Aged Out No l onger eligible based on patient's age to complete this topic RSV Immunization Patients Un demetrio 20 months Aged Out No longer eligible b ased on patient's age to complete this topic Varicella Vaccines Aged Out No longer eligible based on patient's age to complete this topic Insurance [facility] [place] [id number] Care Teams Bridge Repairer Relationship Specialty Start Date End Date Mahad Haddad MD [address] [place] [address] [place] [id number] PCP - General Internal Medicine 07/09/25
[2025-08-02 12:06] VITALS: BP 182/80; PULSE 65; O2SAT 97; BMI 32.9
--- NOTE | 2025-08-02 12:06 | HO.NEPHOV_ITS ---
Vital Signs 08/02/25 12:06 Height 5 ft 7 in Weight 210 lb BMI 32.9 BP 182/80 H Blood Pressure Location Rt brachial Position Sitting Pulse 65 Pulse Source Pulse Oximeter Pulse Oximetry (%) 97 Oxygen Delivery Method Room Air Intake Visit Reasons: 2 mo f/u w/ labs-Conf Dishwashing Machine Repairer Required: No Dishwashing Machine Repairer Services: Dishwashing Machine Repairer Offered & Declined (Son will translate ) Accompanied by: Son Allergies No Known Allergies Allergy (Verified 08/02/25 12:08) HPI Comments Details: Isaac was seen in follow up of his hypertension. His blood pressure is not well controlled on current medication regimen. He is a diabetic and monitors blood sugar closely. His A1c has gone up. He has not lost a lot of weight. He denies chest pain, shortness of breath, nausea, vomiting, diarrhea, edema , urinary or orthostatic symptoms. He feels well. 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 Surgical History History of prostate surgery Hx of inguinal hernia repair S/P placement of nerve stimulator Hx of surgical procedure Hx of cystoscopy Hx of lithotripsy Hx of right hemicolectomy Hx of colonoscopy (09/14/24) Hx of esophagogastroduodenoscopy Family History Father Unknown family medical history Mother Unknown family medical history Social History Are you a primary child care aide to a significant other at home: No Do you presently have visiting nurse or other home services: No Alcohol intake: never Patient Tobacco Use Status: Never used Tobacco Second Hand Smoke Exposure: No Advance Directives Date on File: 09/08/14 Current occupational status: disabled 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/ Review of Systems Const All systems reviewed & are unremarkable except as noted in HPI and below Physical Exam Vital Signs: Last Vital Signs Pulse 65 08/02/25 12:06 BP 182/80 H 08/02/25 12:06 Pulse Ox 97 08/02/25 12:06 Oxygen Delivery Method Room Air 08/02/25 12:06 BMI result Body Mass Index 32.9 Const General: comfortable and no acute distress Orientation/consciousness: patient oriented x3 HEENT Head: Yes normocephalic Mouth: Normal oral and palatal mucosa present Eyes EOM: EOMs intact bilaterally Neck Neck: Yes supple Resp Auscultation: clear to auscultation bilaterally Cardio Jugular venous distension: no JVD Rate: regular rate GI Palpation (GI): Soft to palpation Auscultation: normal bowel sounds General: Yes no CVA tenderness Back/Spine/Pelvis Back: no CVA tenderness Skin General skin exam: no rashes or lesions noted Neuro General: patient oriented x3 and moves all extremities Extrem General: Yes no pedal edema Results Reviewed Nephrology Results: Hgb, (14.0-18.0) 11.7 g/dl L 06/06/25 WBC, (4.8-10.8) 7.5 X10*3/uL 06/06/25 Plt Count, (160-400) 252 X10*3/uL 06/06/25 Sodium, (135-145) 139 mmol/L 04/18/25 Potassium, (3.3-5.1) 4.0 mmol/L 04/18/25 Chloride, (96-108) 103 mmol/L 04/18/25 Carbon Dioxide, (22-29) 29 mmol/L 04/18/25 BUN, (9-16) 13 mg/dL 04/18/25 Creatinine, (0.5-1.4) 0.87 mg/dL 04/18/25 Calcium, (8.4-10.2) 9.0 mg/dL 04/18/25 Assessment & Plan Assessment & Plan (1) Hypertension: Code(s): I10 - Essential (primary) hypertension Category: Medical Qualifiers: Hypertension type: essential hypertension Qualified Code(s): I10 - Essential (primary) hypertension Plan Isaac has long standing hypertension. His blood pressure is labile . I increased his losartan to 100 mg daily. He is a diabetic. He has no retinopathy or CHF. He has normal urine protein cr ratio and renal function is stable at baseline. He needs to loose weight. Follow up appointment given Orders: Orders Creatinine 3 Weeks I10 - Essential (primary) hypertension Electrolytes 3 Weeks I10 - Essential (primary) hypertension Blood Urea Nitrogen 3 Weeks I10 - Essential (primary) hypertension Medications: Changed From losartan 50 mg PO DAILY 90 tabs 4RF To losartan 100 mg PO DAILY 90 tabs 4RF Coding Level of Care Code Est Pt Level 4 (38975) Diagnoses Essential hypertension I10 Hypertension type: essential hypertension
== END 2025-08-02 12:28 | disposition home or self-care (01) ==
LOC: HO.HKA 11:49
PROVIDERS: PCP Internal Medicine; Visit Provider Internal Medicine Nephrology
DX: I10 Essential (primary) hypertension (principal)
CPT/HCPCS: 99214